=== PATIENT | male | born 1940 | race Caucasian/White ===

== ENCOUNTER 2016-05-26 07:18 | Emergency (ER) | payer OTHER ==
[~2016-05-26] VITALS: Ht 175.3 cm; Wt 83.0 kg
[~2016-05-26 07:18] MED LIST: ALBUTEROL0.09 MG/A1 INH; ALBUTEROL2.5 MG/3 M INH/SOL; ALLOPURINOL100 M1 PO; AMIODARONE HCL200 M1 PO; ANUSOL HC-HEMOR1 SUP RC; AUGMENTIN 875-1 EACH PO; AUGMENTIN 875875 MG PO; AZITHROMYCIN250 M1 PO; B COMPLEX PO; BREO ELLIPTA 11 EACH INH; CARDIZEM 180 M180 MG PO; CEFTIN500 M1 PO; CENTRUM SILVER1 EAC3 PO; CENTRUM1 TA2 PO; CIPRO 500MG TA500 MG PO; CORDARONE 200M200 MG PO; DIGOX0.125 MG PO; DILAUDID2 MG PO; DILTIAZEM 12HR120 MG PO; DILTIAZEM HCL120 M2 PO; FLEXERIL 5MG TAB5 MG PO; FLOMAX0.4 M1 PO; FUROSEMIDE40 MG PO; HUMALOG PEN100 U/ML SC; HYDRALAZINE HCL25 MG PO; INDOMETHACIN50 MG PO; LABETALOL HCL200 M1 PO; LEVEMIR 10100 UNITS/ SC; LIDOCAINE VISC100 M2 PO; LISINOPRIL10 MG PO; LISINOPRIL40 MG PO; LOSARTAN POTASS50 M1 PO; MAGNESIUM OXID400 MG PO; MELOXICAM15 MG PO; METFORMIN HYD1000 MG PO; NORVASC 10MG10 MG PO; NOVOLOG FL100 UNIT/1 SC; NOVOLOG100 U/ML SC; PERCOCET 325 MG1 TA2 PO; PRAVASTATIN SOD80 MG PO; PREDNISONE 10MG10 M1 PO; PREDNISONE10 M2 PO; PREDNISONE5 M1 PO; SPIRIVA 18 MCG18 MCG INH; SYMBICORT 160/41 PUF INH; VENTOLIN HFA18 GM INH; XARELTO15 M1 PO; XARELTO20 M2 PO; XARELTO20 MG PO; [UNRECOGNIZED DRUG - OTHER] PO
--- NOTE | 2016-05-26 07:20 | ED NOSE COMPLAINT ---
History of Present Illness General Chief Complaint: Epistaxis/Nasal Foreign Body Stated Complaint: BIBA FOR NOSE BLEED Source: patient, EMS Exam Limitations: no limitations Vital Signs & Intake/Output Vital Signs & Intake/Output Vital Signs Date Time Temp Pulse Resp B/P Pulse O2 O2 Flow FiO2 Ox Delivery Rate 05/26 814 97.5 78 20 182/68 /08 0815 97.5 78 20 182/68 05/26 0815 97.5 78 20 182/68 05/26 0800 95 Nasal 2.0L Cannula 05/26 0755 180/64 05/26 0754 182/68 05/26 0735 97 Nasal 2.0L Cannula 05/26 0624 94 Nasal 2.0L Cannula 05/26 721 97.5 93 20 193/84 89 Room Air Allergies Coded Allergies: NO KNOWN ALLERGIES (07/12/15) Reconcile Medications Albuterol Sulfate 2.5 MG/3 ML (0.083 %) VIAL.NEB 1 Vial INH/ASHLEY TID PRN wheezing Albuterol Sulfate (Ventolin Hfa) 18 GM HFA.AER.AD 2 PUF INH Q6P PRN SHORTNESS OF BREATH Allopurinol 100 MG TABLET 300 TAB PO DAILY GOUT (Reported) Allopurinol 300 MG TABLET 1 TAB PO DAILY HTN (Reported) Amiodarone HCl 200 MG TABLET 1 TAB PO DAILY AFIB (Reported) Diltiazem Hydrochloride (Diltiazem HCl) 120 MG C24 1 CAP PO DAILY HEART ( Reported) FLUTICASONE/VILANTEROL (Breo Ellipta 100-25 Mcg INH) 1 POW POW 1 PUFF INH DAILY BRTH (Reported) FOLIC ACID/VIT BCOMP,C (Y-Aavxpjq-Trn C Time Rel Tab) [address] 1 TAB PO DAILY SUPPLEMENT (Reported) Furosemide 40 MG TABLET 1 TAB PO DAILY HEART FAILURE (Reported) HYDRALAZINE HCL (Hydralazine HCl) 25 MG TAB 25 MG PO TID blood pressure Labetalol HCl 200 MG TABLET 1 TAB PO BID BP (Reported) Losartan Potassium 50 MG TABLET 1 TAB PO DAILY HYPERTENSION Magnesium Oxide 400 MG TABLET 1 TAB PO DAILY VITAMIN (Reported) Magnesium Oxide 400 MG TABLET 1 TAB PO DAILY LOW MAG Metformin HCl 1,000 MG TABLET 1 TAB PO BID DM (Reported) Multivitamin, Minerals, and (Centrum Silver) 1 TAB TAB 1 TAB PO DAILY SUPPLEMENT (Reported) Prednisone 10 MG TABLET 1 TAB PO SI copd take 4tablets for 2days. take 3tablets for 3days. take 2tablets for 3days. take 1tablet for 3days. then stop. Rivaroxaban (Xarelto) 15 MG TABLET 1 TAB PO 1700 atrial fibrillation TAMSULOSIN HCL (Tamsulosin Hydrochloride) 0.4 MG CAP 1 CAP PO DAILY PROSTATE (Reported) Tiotropium [place] (Spiriva) 18 MCG CAP.W.DEV 1 CAP INH DAILY COPD (Reported) Tiotropium [place] (Spiriva) 18 MCG CAP.W.DEV 1 CAP INH DAILY COPD (Reported) Triage Nurses Notes Reviewed? yes Onset: Abrupt Duration: hour(s): (1.5) Timing: single episode today Injury Environment: home Severity: mild, moderate No Modifying Factors: none Associated Symptoms: DYSPNEA HPI: 75 year old with nose bleed since 5:50 AM. Patient was awake, sitting down and it started to bleed. H/o same in past which usually resolve on their own. Patient states he started to panic with a nosebleed didn't stop and then became short of breath. No headache, no new visual disturbance. Increased lasix dose per Dr. Ramirez because he was volume overloaded. Patient hypertensive, hypoxic. H/O COPD, feels short of breath. One and a half liters of home oxygen only at night. Currently on prednisone 10 mg in the morning 5 mg night. Received duoneb in ambulance. Currently bleeding appears to have stopped. Peeling patient feeling a little bit better. He is on xarelto. Past History Travel History Traveled to [place] past 21 day No Medical History Any Pertinent Medical History? see below for history Neurological: NONE EENT: HEARING LOSS Cardiovascular: AFIB, CHF, hypertension, hyperlipidemia, STENTS x 5 LCW PACER/ DEBRILLATOR Respiratory: COPD, pneumonia Gastrointestinal: NONE Hepatic: NONE Renal: acute tubular necrosis Musculoskeletal: gout, osteoarthritis Psychiatric: NONE Endocrine: diabetes Blood Disorders: NONE Cancer(s): NONE INSURANCE BROKER/Reproductive: NONE History of MRSA: Yes History of VRE: No History of CDIFF: No Surgical History Surgical History: AICD/PACER, BYPASS Psychosocial History Who do you live with Family Services at Home None What is your primary language Bengali Family History Family History, If Any: FATHER BROTHER (CAD,HTN). Relation not specified for: Fam hx-ischem heart disease Fam hx-ischem heart disease Hx Contributory? No Review of Systems Review of Systems Constitutional: Denies: chills, fever. EENTM: Reports: epistaxis. Respiratory: Reports: short of breath. Denies: cough, sputum production. Cardiovascular: Denies: chest pain. GI: Denies: abdominal pain, bloody stool, vomiting. Genitourinary: Denies: discharge, dysuria. Musculoskeletal: Reports: no symptoms. Skin: Reports: no symptoms. Neurological/Psychological: Reports: no symptoms. Hematologic/Endocrine: Reports: bleeding. Immunologic/Allergic: Denies: splenectomy. All Other Systems: Reviewed and Negative Physical Exam Physical Exam General Appearance: well developed/nourished, mild distress Head: atraumatic Eyes: Bilateral: PERRL, EOMI. Nose: dried blood Mouth/Throat: normal mouth inspection, pharynx normal Neck: normal inspection, supple Cardiovascular/Respiratory: normal breath sounds, regular rate/rhythm Back: normal inspection Neurologic/Psych: no motor/sensory deficits, awake, alert, oriented x 3, normal mood/affect, ANXIOUS Skin: intact, normal color, warm/dry Progress Differential Diagnoses I considered the following diagnoses in my evaluation of the patient: [epistaxis , coagulopathy, anemia, chf, copd EXACERBATION] Plan of Care: Orders Procedure Date/time Status RT ED ORDERS 05/26 07 Complete PARTIAL THROMBOPLASTIN TIME 05/26 730 Complete PROTHROMBIN TIME 05/26 730 Complete TROPONIN LEVEL 05/27 727 Complete COMPREHENSIVE METABOLIC PANEL 05/27 727 Complete CBC WITHOUT DIFFERENTIAL 05/27 727 Complete Laboratory Tests 05/26/16 0730: Anion Gap 10, Estimated GFR 46 L, BUN/Creatinine Ratio 20.0, Glucose 144 H, Calcium 8.9, Total Bilirubin 0.4, AST 17, ALT 33, Alkaline Phosphatase 78, Troponin I 0.01, Total Protein 6.7, Albumin 3.6, Globulin 3.1, Albumin/Globulin Ratio 1.2, PT 15.3 H, INR 1.46 H, APTT 42 H, CBC w Diff NO MAN DIFF REQ, RBC 3.99 L, MCV 88.2, MCH 28.2, RDW 15.3 H, MPV 7.1 L, Gran % 77.5 H, Lymphocytes % 15.1 L, Monocytes % 5.6, Eosinophils % 1.2, Basophils % 0.6, Absolute Granulocytes 6.8 H, Absolute Lymphocytes 1.3, Absolute Monocytes 0.5, Absolute Eosinophils 0.1, Absolute Basophils 0.1, PUBS MCHC 31.9 L NO ACTIVE BLEEDING ON ARRIVAL TO ED. PATIENT SOB. DUONEB, CXR ORDERED. HOME BP MEDS ORDERED. CXR C/W MILD CHF. PATIENT FEELING MUCH BETTER AFTER DUONEB. PO LASIX ORDERED. (AMINA LONGORIA,REBECCA) Diagnostic Imaging: Viewed by Me: Radiology Read. Discussed w/RAD: Radiology Read. Initial ED EKG: none Rhythm Strip: normal sinus rhythm Comments: PATIENT: SONDRA CANO PRESENT AGE: 75 PATIENT ACCOUNT NO: [id number] : 39 LOCATION: [facility] ORDERING PHYSICIAN: REBECCA HUYNH MD SERVICE DATE: 05/26/16 EXAM TYPE: RAD - XRY-CHEST XRAY, PA AND LATERAL EXAMINATION: XR CHEST, 2 VIEWS CLINICAL INFORMATION: Hypoxia. Dyspnea. Rule out CHF COMPARISON: 04/18/2016 TECHNIQUE: AP and lateral views of the chest were obtained. FINDINGS: Triple lead AICD is unchanged from prior with leads terminating in the right ventricle, coronary sinus, and right atrium. Cardiomediastinal contour is within limits in size. Calcific atherosclerosis is present in the thoracic aorta. Pulmonary vasculature is unremarkable. There is mild dependent atelectasis. Heena B lines are present within the lateral aspects of the lung bases, consistent with mild interstitial edema. Trace pleural effusions are present at the posterior costophrenic sulci. No superimposed consolidation. There is confluent anterior osteophytosis in the thoracic spine with ossification of the anterior longitudinal ligament, consistent with diffuse hepatic skeletal hyperostosis. IMPRESSION: Mild pulmonary interstitial edema with trace bilateral pleural effusions. DICTATED BY: MIK MCINTOSH MD DATE/TIME DICTATED:05/26/16907 AUTO RESEARCH ENGINEER:SANTANA DATE/TIME TRANSCRIBED:05/26/16907 CONFIDENTIAL, DO NOT COPY WITHOUT APPROPRIATE AUTHORIZATION. <Electronically signed in Other Vendor System> SIGNED BY: MIK MCINTOSH MD 05/26/16914 Departure Departure Time of Disposition: 927 Disposition: HOME OR SELF CARE Condition: Stable Clinical Impression Primary Impression: Epistaxis, recurrent Secondary Impressions: CKD (chronic kidney disease), COPD (chronic obstructive pulmonary disease) Referrals: SCRALETT WATT MD (PCP/Family) Additional Instructions: CONTINUE YOUR REGULAR MEDICATIONS. TAKE AN EXTRA DOSE OF LASIX TODAY. RETURN FOR ANY WORSENING SHORTNESS OF BREATH. Departure Forms: Customer Survey General Discharge Information
[2016-05-26 07:48] LABS: ABSOLUTE BASOPHIL COUNT 0.1 /CUMM (0.0-0.2); ABSOLUTE EOSINOPHIL COUNT 0.1 /CUMM (0.0-0.7); ABSOLUTE GRANULOCYTE CT 6.8 /CUMM (1.4-6.5); ABSOLUTE LYMPH COUNT 1.3 /CUMM (1.2-3.4); ABSOLUTE MONOCYTE COUNT 0.5 /CUMM (0.10-0.60); BASOPHIL % 0.6 % (0.0-2.0); EOSINOPHIL % 1.2 % (0-5); GRANULOCYTE % 77.5 % (42.2-75.2); HEMATOCRIT 35.2 % (42-52); MEAN CORPUSCULAR HGB 28.2 PG (27.0-31.0); MEAN CORPUSCULAR HGB CONC 31.9 G/DL (33.0-37.0); MEAN CORPUSCULAR VOLUME 88.2 FL (80.0-94.0); MEAN PLATELET VOLUME 7.1 FL (7.4-10.4); PLATELET COUNT 271 /CUMM (130-400); RBC DISTRIBUTION WIDTH 15.3 % (11.5-14.5); RED BLOOD CELL CT 3.99 /CUMM (4.70-6.10); WHITE BLOOD CELL COUNT 8.8 /CUMM (4.8-10.8)
[2016-05-26 07:51] LABS: PT 15.3 SEC (9.4-12.5); PTT 42 SEC (25-37)
[2016-05-26] MEDS ORDERED: MAGNESIUM OXID400 M1 PO (08:29)
[2016-05-26] MEDS ORDERED: METFORMIN HCL1000 M1 PO (08:30)
[2016-05-26] MEDS ORDERED: SPIRIVA18 MCG INH (08:31)
[2016-05-26] MEDS ORDERED: ALLOPURINOL300 M1 PO (08:31)
--- NOTE | 2016-05-26 09:15 | RADIOLOGY REPORT ---
EXAMINATION: XR CHEST, 2 VIEWS CLINICAL INFORMATION: Hypoxia. Dyspnea. Rule out CHF COMPARISON: 04/18/2016 TECHNIQUE: AP and lateral views of the chest were obtained. FINDINGS: Triple lead AICD is unchanged from prior with leads terminating in the right ventricle, coronary sinus, and right atrium. Cardiomediastinal contour is within limits in size. Calcific atherosclerosis is present in the thoracic aorta. Pulmonary vasculature is unremarkable. There is mild dependent atelectasis. Heena B lines are present within the lateral aspects of the lung bases, consistent with mild interstitial edema. Trace pleural effusions are present at the posterior costophrenic sulci. No superimposed consolidation. There is confluent anterior osteophytosis in the thoracic spine with ossification of the anterior longitudinal ligament, consistent with diffuse hepatic skeletal hyperostosis. IMPRESSION: Mild pulmonary interstitial edema with trace bilateral pleural effusions.
[2016-05-26 10:03] VITALS: BP 178/78
== END 2016-05-26 10:10 ==
LOC: ERH 07:18
PROVIDERS: Emergency Medicine
DX: R04.0 Epistaxis (principal); N18.9 Chronic kidney disease, unspecified; J44.9 Chronic obstructive pulmonary disease, unspecified
CPT/HCPCS: 1263; J7512

== ENCOUNTER 2016-07-15 09:16 | Inpatient (IN) | payer OTHER ==
[~2016-07-15] VITALS: Ht 175.3 cm; Wt 86.4 kg
[~2016-07-15 09:16] MED LIST changes: +ALLOPURINOL300 M1 PO; +MAGNESIUM OXID400 M1 PO; +METFORMIN HCL1000 M1 PO; +SPIRIVA18 MCG INH
--- NOTE | 2016-07-15 09:22 | NUR ---
PT BIBA FOR INCREASED SOB STATES HE IS NORMALY ON 02 1L NC PRN FOR INCREASED SOB. PT TOOK TWO NEB TREATMENTS THIS AM AND DID NOT FEEL BETTER CALLED 911. PT REPORTS INCREASED SOB OVER THE PAST COUPLE OF DAYS WITH COUGH. PT STATES HE HAS BEEN EXPECTORATING THICK YELLOW/GREEN SPUTUM ALSO DEMONSTRATED SUCH IN THE ED. PT STATES HIS NORMAL 02 SAT IS AROUND 90 TO 91%. PT HAD EPISODE OF DIAPHORESIS WHILE COUGHING AND STATES HIS BREATHING JUST GOT HARDER TODAY. PT DENIES EVERY FEELING DIZZY.
--- NOTE | 2016-07-15 09:41 | ED DYSPNEA/ASTHMA COMPLAINT ---
History of Present Illness General Chief Complaint: Dyspnea (COPD, CHF, Other) Stated Complaint: BIBA SOB Source: patient, old records, EMS Exam Limitations: no limitations Vital Signs & Intake/Output Vital Signs & Intake/Output Vital Signs Date Time Temp Pulse Resp B/P B/P Pulse O2 O2 Flow FiO2 Mean Ox Delivery Rate 07/15 1141 98.0 71 20 188/82 96 Nasal 3.5L Cannula 07/15 1002 96 Nasal 2.0L Cannula 07/15 0923 90 Nasal 2.0L Cannula 07/15 0919 97.0 89 20 175/74 91 Nasal 2.0L Cannula Allergies Coded Allergies: NO KNOWN ALLERGIES (07/12/15) Reconcile Medications Albuterol Sulfate 2.5 MG/3 ML (0.083 %) VIAL.NEB 1 Vial INH/ASHLEY TID PRN wheezing Albuterol Sulfate (Ventolin Hfa) 18 GM HFA.AER.AD 2 PUF INH Q6P PRN SHORTNESS OF BREATH Allopurinol 100 MG TABLET 300 TAB PO DAILY GOUT (Reported) Allopurinol 300 MG TABLET 1 TAB PO DAILY HTN (Reported) Amiodarone HCl 200 MG TABLET 1 TAB PO DAILY AFIB (Reported) Diltiazem Hydrochloride (Diltiazem HCl) 120 MG C24 1 CAP PO DAILY HEART ( Reported) FLUTICASONE/VILANTEROL (Breo Ellipta 100-25 Mcg INH) 1 POW POW 1 PUFF INH DAILY BRTH (Reported) FOLIC ACID/VIT BCOMP,C (J-Eqcsfdj-Jze C Time Rel Tab) [address] 1 TAB PO DAILY SUPPLEMENT (Reported) Furosemide 40 MG TABLET 1 TAB PO DAILY HEART FAILURE (Reported) HYDRALAZINE HCL (Hydralazine HCl) 25 MG TAB 25 MG PO TID blood pressure Labetalol HCl 200 MG TABLET 1 TAB PO BID BP (Reported) Losartan Potassium 50 MG TABLET 1 TAB PO DAILY HYPERTENSION Magnesium Oxide 400 MG TABLET 1 TAB PO DAILY VITAMIN (Reported) Magnesium Oxide 400 MG TABLET 1 TAB PO DAILY LOW MAG Metformin HCl 1,000 MG TABLET 1 TAB PO BID DM (Reported) Multivitamin, Minerals, and (Centrum Silver) 1 TAB TAB 1 TAB PO DAILY SUPPLEMENT (Reported) Prednisone 10 MG TABLET 1 TAB PO SI copd take 4tablets for 2days. take 3tablets for 3days. take 2tablets for 3days. take 1tablet for 3days. then stop. Rivaroxaban (Xarelto) 15 MG TABLET 1 TAB PO 1700 atrial fibrillation TAMSULOSIN HCL (Tamsulosin Hydrochloride) 0.4 MG CAP 1 CAP PO DAILY PROSTATE (Reported) Tiotropium [place] (Spiriva) 18 MCG CAP.W.DEV 1 CAP INH DAILY COPD (Reported) Tiotropium [place] (Spiriva) 18 MCG CAP.W.DEV 1 CAP INH DAILY COPD (Reported) Triage Note: PT BIBA FOR INCREASED SOB STATES HE IS NORMALY ON 02 1L NC PRN FOR INCREASED SOB. PT TOOK TWO NEB TREATMENTS THIS AM AND DID NOT FEEL BETTER CALLED 911. PT REPORTS INCREASED SOB OVER THE PAST COUPLE OF DAYS WITH COUGH. PT STATES HE HAS BEEN EXPECTORATING THICK YELLOW/GREEN SPUTUM ALSO DEMONSTRATED SUCH IN THE ED. PT STATES HIS NORMAL 02 SAT IS AROUND 90 TO 91%. PT HAD EPISODE OF DIAPHORESIS WHILE COUGHING AND STATES HIS BREATHING JUST GOT HARDER TODAY. PT DENIES EVERY FEELING DIZZY. Triage Nurses Notes Reviewed? yes HPI: Patient presents for evaluation of worsening and severe shortness of breath since this morning. Onset was rather abrupt and has been constant since onset. Shortness of breath worsens with exertion. Patient states he has had prior episodes, most recently that resolved spontaneously. He does have a history of congestive heart failure and COPD. He denies any associated fever or cold symptoms but has had a cough over the past 3-4 days with yellow phlegm production and mild wheezing. He denies any leg swelling currently although he has had leg swelling in the past. He is not sure about orthopnea as he tends to sleep upright on a consistent basis. Past History Travel History Traveled to [place] past 21 day No Medical History Any Pertinent Medical History? 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 Relation not specified for: Fam hx-ischem heart disease Fam hx-ischem heart disease Hx Contributory? No Review of Systems Review of Systems Constitutional: Reports: no symptoms. EENTM: Reports: no symptoms. Respiratory: Reports: see HPI. Cardiovascular: Reports: no symptoms. GI: Reports: no symptoms. Genitourinary: Reports: no symptoms. Musculoskeletal: Reports: no symptoms. Skin: Reports: no symptoms. Neurological/Psychological: Reports: no symptoms. Hematologic/Endocrine: Reports: no symptoms. Immunologic/Allergic: Reports: no symptoms. All Other Systems: Reviewed and Negative Physical Exam Physical Exam Respiratory: see below Comments: Gen.: Well-nourished, well-developed, mild to moderate respiratory distress Head: Normocephalic, atraumatic. Eyes: Normal inspection bilaterally Ears: Normal inspection bilaterally Nose: Normal inspection Throat/mouth : Moist mucosa Neck: Supple, full range of motion, no goiter Heart: Regular rate and rhythm, no murmurs rubs or gallops Lungs: Decreased breath sounds bilaterally with scattered wheezes and mild rhonchi, no Rales Chest: Nontender Back: Normal range of motion Abdomen: Soft, nontender, nondistended, normal bowel sounds Extremities: Normal range of motion grossly, equal radial pulses, no cyanosis clubbing or edema, calves nt Neurologic: Cranial nerves grossly intact, speech is clear Skin: warm and dry Psychiatric: Calm, cooperative, no apparent delusions or hallucinations Core Measures ACS in differential dx? No Severe Sepsis Present: No Septic Shock Present: No Progress Differential Diagnosis: AMI, bronchitis, CHF, COPD, pneumonia, unstable angina Plan of Care: Orders Procedure Date/time Status CBC WITHOUT DIFFERENTIAL 07/16 06 Active BASIC ELECTROLYTES PLUS BUN&CR 07/16 06 Active Heart Healthy Diet 07/15 L Complete Consistent Carbohydrate 1 07/15 D Active LOWER RESPIRATORY CULTURE 07/15 1329 Active C.DIFFICILE 07/15 1329 Active BLOOD CULTURE 07/15 1329 Active Pathway - chart 07/15 1325 Active House Staff 07/15 1325 Active Patient Data 07/15 1325 Active Patient Data 07/15 1203 Active Misc Message 07/15 1131 Active ED Holding Orders 07/15 1131 Active Vital Signs 07/15 1131 Active Code Status 07/15 1131 Active Admit to inpatient 07/15 1101 Active Telemetry/Family Lawyer 07/15 0940 Active MAGNESIUM 07/15 0934 Complete B-TYPE NATRIURETIC PEP (BNP) 07/15 0934 Complete Intake & Output 07/15 0923 Active TROPONIN LEVEL 07/15 09 Complete COMPREHENSIVE METABOLIC PANEL 07/15 09 Complete CBC WITHOUT DIFFERENTIAL 07/15 09 Complete EKG 07/15 0917 Active VTE Mechanical Prophylaxis 07/15 UNK Active Telemetry/Family Lawyer 07/15 UNK Active Current Medications Sig/Clare Start time Last Medication Dose Stop Time Status Admin Azithromycin 500 MG DAILY 07/16 1000 AC (Zithromax) Sodium Chloride 250 ML (Normal Saline 0.9%) Ceftriaxone Sodium 1,000 MG DAILY 07/16 1000 AC (Rocephin) Methylprednisolone 40 MG Q12 07/16 1000 AC (Solumedrol) Furosemide 40 MG BID 07/15 2200 AC (Lasix) Heparin Sodium 5,000 UNIT Q8 07/15 2200 AC (Porcine) Acetaminophen 650 MG Q6P PRN 07/15 1330 AC (Tylenol) Ibuprofen 600 MG Q6P PRN 07/15 1330 AC (Motrin) Laboratory Tests 07/15/16 0940: Magnesium Cancelled, Ksn-X-Jggbawavpie Pept Cancelled 07/15/16 0934: Anion Gap 12, Estimated GFR 49 L, BUN/Creatinine Ratio 18.6, Glucose 110 H, Calcium 8.6, Magnesium 1.8, Total Bilirubin 0.4, AST 17, ALT 28, Alkaline Phosphatase 78, Troponin I 0.01, Kuv-I-Khsqovkrtmv Pept 5330 H, Total Protein 6.1 L, Albumin 3.4 L, Globulin 2.7, Albumin/Globulin Ratio 1.3, CBC w Diff NO MAN DIFF REQ, RBC 3.53 L, MCV 83.1, MCH 27.0, RDW 17.0 H, MPV 6.9 L, Gran % 80.3 H, Lymphocytes % 12.7 L, Monocytes % 5.4, Eosinophils % 1.5, Basophils % 0.1, Absolute Granulocytes 7.6 H, Absolute Lymphocytes 1.2, Absolute Monocytes 0.5, Absolute Eosinophils 0.1, Absolute Basophils 0, PUBS MCHC 32.5 L Microbiology 07/15 1329 LOWER RESP: Respiratory Culture - ORD 07/15 1329 LOWER RESP: Gram Stain - ORD 07/15 132 STOOL: Clostridium difficile Toxin A & B - ORD 07/15 1329 BLOOD: Blood Culture - ORD 07/15 1329 BLOOD: Blood Culture - ORD Diagnostic Imaging: Viewed by Me: Radiology Read. Discussed w/RAD: Radiology Read. CXR Impression: PATIENT: SONDRA CANO PRESENT AGE: 76 PATIENT ACCOUNT NO: [id number] : 39 LOCATION: [facility] ORDERING PHYSICIAN: EDDIE DUMONT MD SERVICE DATE: 07/15/16 EXAM TYPE: RAD - XRY-PORTABLE CHEST XRAY EXAMINATION: XR PORTABLE CHEST CLINICAL INFORMATION: Dyspnea and wheezing. COMPARISON: Chest 05/26/2016 TECHNIQUE: Portable frontal view of the chest was obtained. FINDINGS: There is mild cardiomegaly with increased pulmonary vascularity suggestive of congestion. There are dual pacer electrodes in right atrium and right ventricle. The lungs are expanded without acute consolidation. No gross bony abnormality seen. IMPRESSION: Cardiomegaly with pulmonary vascular congestion. DICTATED BY: CASSANDRA MOORE MD DATE/TIME DICTATED: 07/15/161001 FOLDER GLUER OPERATOR:SANTANA DATE/TIME TRANSCRIBED:07/15/161001 CONFIDENTIAL, DO NOT COPY WITHOUT APPROPRIATE AUTHORIZATION. <Electronically signed in Other Vendor System> SIGNED BY: CASSANDRA MOORE MD 07/15/16 1008 Initial ED EKG: atrial pacer with LBBB Prior EKG: unchanged Rhythm Strip: paced rhythm Comments: 07/15/2016 1:30:34 PM patient updated on test results. He appears comfortable but his lungs still sound somewhat congested. Departure Departure Disposition: STILL A PATIENT Condition: Stable Clinical Impression Primary Impression: CHF (congestive heart failure) Qualifiers: Congestive heart failure type: unspecified congestive heart failure type Congestive heart failure chronicity: acute Qualified Code: I50.9 - Heart failure, unspecified Secondary Impressions: Anemia Qualifiers: Anemia type: unspecified type Qualified Code: D64.9 - Anemia, unspecified COPD (chronic obstructive pulmonary disease) Renal insufficiency Referrals: SCARLETT WATT MD (PCP/Family) Departure Forms: Customer Survey General Discharge Information Admission Note Spoke With: ARY LONGORIA,ELAINE Tomas Documentation of Exam: Documentation of any treatments & extenuating circumstances including Concerns Regarding Discharge (functional status, medication knowledge or non-compliance, living conditions, etc.) that warrant an admission rather than observation: Patient is experiencing a combination of COPD and CHF exacerbations complicated by renal insufficiency and anemia. The combination of the above has severely compromised this patient's functional capacity making him a poor candidate for outpatient management. I feel the exertion of compliance with outpatient treatment would likely worsen his dyspnea potentially leading to hypoxia respiratory insufficiency and respiratory arrest. In addition this could unmask underlying coronary artery disease in this patient with multiple risk factors. I feel he now requires hospitalization for continuous cardiac monitoring and continuous pulse oximetry along with nebulized bronchodilators, steroids, Lasix and monitoring of intake and output and daily weights. Serial troponins and EKGs should also be obtained. Pulmonary and cardiology consultations should be considered. Given this patient's advanced age and multiple medical comorbidities I feel his response to treatment and recovery will be prolonged and complicated, requiring a multiple day hospitalization. Critical Care Note Critical Care Note Critical Care Time: 30-74 min
[2016-07-15 09:43] LABS: ABSOLUTE BASOPHIL COUNT 0 /CUMM (0.0-0.2); ABSOLUTE EOSINOPHIL COUNT 0.1 /CUMM (0.0-0.7); ABSOLUTE GRANULOCYTE CT 7.6 /CUMM (1.4-6.5); ABSOLUTE LYMPH COUNT 1.2 /CUMM (1.2-3.4); ABSOLUTE MONOCYTE COUNT 0.5 /CUMM (0.10-0.60); BASOPHIL % 0.1 % (0.0-2.0); EOSINOPHIL % 1.5 % (0-5); GRANULOCYTE % 80.3 % (42.2-75.2); HEMATOCRIT 29.4 % (42-52); MEAN CORPUSCULAR HGB CONC 32.5 G/DL (33.0-37.0); MEAN CORPUSCULAR VOLUME 83.1 FL (80.0-94.0); MEAN PLATELET VOLUME 6.9 FL (7.4-10.4); PLATELET COUNT 283 /CUMM (130-400); RED BLOOD CELL CT 3.53 /CUMM (4.70-6.10); WHITE BLOOD CELL COUNT 9.5 /CUMM (4.8-10.8)
--- NOTE | 2016-07-15 10:08 | RADIOLOGY REPORT ---
EXAMINATION: XR PORTABLE CHEST CLINICAL INFORMATION: Dyspnea and wheezing. COMPARISON: Chest 05/26/2016 TECHNIQUE: Portable frontal view of the chest was obtained. FINDINGS: There is mild cardiomegaly with increased pulmonary vascularity suggestive of congestion. There are dual pacer electrodes in right atrium and right ventricle. The lungs are expanded without acute consolidation. No gross bony abnormality seen. IMPRESSION: Cardiomegaly with pulmonary vascular congestion.
--- NOTE | 2016-07-15 10:30 | NUR ---
PT RESTING COMFORTABLY OFFERS NO COMPLAINTS
--- NOTE | 2016-07-15 11:15 | NUR ---
PT MEDICATED WITH LASIX
--- NOTE | 2016-07-15 12:00 | NUR ---
IV VANCO INFUSING DIRECTED PER DR. DUMONT NO BLOOD CULTURES NEEDED
--- NOTE | 2016-07-15 12:23 | NUR ---
PT ASSIGNED TO [place] [id number]
--- NOTE | 2016-07-15 12:50 | History & Physical ---
JUAN FRANCISCO YI 07/15/16 1249: General Information and HPI MD Statement: I have seen and personally examined SONDRA CANO and documented this H&P. The patient is a 76 year old M who presented with a patient stated chief complaint of worsening shortness of breath. Source of Information: patient, family, old records Exam Limitations: no limitations History of Present Illness: Patient is a 76-year-old gentleman with a past medical history significant for MRSA 2013, atrial fibrillation on Xarelto, history of hypertension and hyperlipidemia, CHF, coronary artery disease(status post 5 stents with PACER/ DEBRILLATOR, COPD on 1 L of oxygen at baseline, ex-smoker, smoked more than 40 years, history of solitary lung nodule diagnosed in 2013, history of arthritis history of diabetes mellitus presented to the ED for the evaluation of sudden onset shortness of breath this morning. Patient reported that his symptoms started all of a sudden with severe shortness of breath ,not associated with any chest discomfort or palpitations. He used his nebulizer treatment at home twice ,with minimal improvement of his symptoms, 911 was called in and he was brought to the ED for further evaluation. Patient reported that he had similar episode of shortness of breath on that resolved after taking short-acting inhalers and nebulizers at home.He also reported that productive cough for the last 3-4 days denied any fever or chills denied any sick contacts or any recent travel history. Patient also reported that he has been having loose watery stools for the last couple of days not associated with any nausea vomiting abdominal discomfort or any alternating constipation. In the ED patient was found to be in acute respiratory distress(wheezing) .Chest x-ray was inconsistent with pulmonary vascular congestion .He received one-time dose of IV Solu-Medrol 125 mg, nebulizer treatment with IV Lasix 40 mg that resulted in improvement of his symptoms. Allergies/Medications Allergies: Coded Allergies: NO KNOWN ALLERGIES (07/12/15) Home Med list Albuterol Sulfate 2.5 MG/3 ML (0.083 %) VIAL.NEB 1 Vial INH/ASHLEY TID PRN wheezing Albuterol Sulfate (Ventolin Hfa) 18 GM HFA.AER.AD 2 PUF INH Q6P PRN SHORTNESS OF BREATH Allopurinol 100 MG TABLET 3 TAB PO DAILY GOUT (Reported) Allopurinol 300 MG TABLET 1 TAB PO DAILY HTN (Reported) Amiodarone HCl 200 MG TABLET 0.5 TAB PO DAILY AFIB (Reported) Amlodipine Besylate (Norvasc) 5 MG TABLET 1 TAB PO DAILY HTN (Reported) Diltiazem Hydrochloride (Diltiazem HCl) 120 MG C24 1 CAP PO DAILY HEART ( Reported) FLUTICASONE/VILANTEROL (Breo Ellipta 100-25 Mcg INH) 1 POW POW 1 PUFF INH DAILY BRTH (Reported) FOLIC ACID/VIT BCOMP,C (P-Uponqao-Erm C Time Rel Tab) [address] 1 TAB PO DAILY SUPPLEMENT (Reported) Furosemide 40 MG TABLET 1 TAB PO DAILY HEART FAILURE (Reported) Labetalol HCl 200 MG TABLET 1 TAB PO BID BP (Reported) Losartan Potassium 50 MG TABLET 1 TAB PO DAILY HYPERTENSION Magnesium Oxide 400 MG TABLET 1 TAB PO DAILY VITAMIN (Reported) Magnesium Oxide 400 MG TABLET 1 TAB PO DAILY LOW MAG Metformin HCl 1,000 MG TABLET 1 TAB PO BID DM (Reported) Multivitamin, Minerals, and (Centrum Silver) 1 TAB TAB 1 TAB PO DAILY SUPPLEMENT (Reported) Pravastatin Sodium 80 MG TABLET 1 TAB PO DAILY HLD (Reported) Prednisone 10 MG TABLET 1 TAB PO SI copd take 4tablets for 2days. take 3tablets for 3days. take 2tablets for 3days. take 1tablet for 3days. then stop. Rivaroxaban (Xarelto) 15 MG TABLET 1 TAB PO 1700 atrial fibrillation TAMSULOSIN HCL (Tamsulosin Hydrochloride) 0.4 MG CAP 1 CAP PO DAILY PROSTATE (Reported) Tiotropium Worden (Spiriva) 18 MCG CAP.W.DEV 1 CAP INH DAILY COPD (Reported) Tiotropium Worden (Spiriva) 18 MCG CAP.W.DEV 1 CAP INH DAILY COPD (Reported) Past History Travel History Traveled to [place] past 21 day No Medical History Neurological: NONE EENT: HEARING LOSS Cardiovascular: AFIB, CHF, hypertension, hyperlipidemia, STENTS x 5 LCW PACER/ DEBRILLATOR Respiratory: COPD, pneumonia Gastrointestinal: NONE Hepatic: NONE Renal: acute tubular necrosis Musculoskeletal: gout, osteoarthritis Psychiatric: NONE Endocrine: diabetes Blood Disorders: NONE Cancer(s): NONE 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 Relation not specified for: Fam hx-ischem heart disease Fam hx-ischem heart disease Psychosocial History Who Do You Live With? self Services at Home: None Primary Language: Serbian ETOH Use: occasional use Illicit Drug Use: denies illicit drug use Functional Ability ADLs Independent: dressing, eating, toileting, bathing. Ambulation: independent IADLs Independent: shopping, housework, finances, food prep, telephone, transportation , medication admin. Review of Systems Review of Systems Constitutional: Denies: chills, diaphoresis, fever, malaise. EENTM: Denies: blurred vision, double vision, visual changes. Cardiovascular: Reports: orthopena. Denies: chest pain, edema, palpitations. Respiratory: Reports: cough, short of breath. Denies: hemoptysis. GI: Denies: bloating, constipation, diarrhea. Genitourinary: Denies: discharge, dysuria, frequency. Musculoskeletal: Denies: back pain, gout, joint pain. Skin: Denies: change in skin color, change in hair/nails, dryness. Neurological/Psychological: Denies: ataxia. Exam & Diagnostic Data Last 24 Hrs of Vital Signs/I&O Vital Signs Date Time Temp Pulse Resp B/P B/P Pulse O2 O2 Flow FiO2 Mean Ox Delivery Rate 07/15 1357 98.0 72 16 176/72 94 Nasal 3.0L Cannula 07/15 1352 96 Nasal 2.0L Cannula 07/15 1352 97 Nasal 1.0L Cannula 07/15 1141 98.0 71 20 188/82 96 Nasal 3.5L Cannula 07/15 1002 96 Nasal 2.0L Cannula 07/15 0923 90 Nasal 2.0L Cannula 07/15 0919 97.0 89 20 175/74 91 Nasal 2.0L Cannula Intake & Output 07/15 1600 07/15 0800 07/15 0000 Intake Total 0 Output Total 525 Balance -525 Intake, Oral 0 Output, Urine 525 Patient 188 lb Weight Weight Reported by Patient Measurement Method Physical Exam General Appearance Alert, Oriented X3 Skin No Rashes, No Breakdown HEENT Atraumatic, PERRLA Neck Supple, No JVD Cardiovascular Regular Rate, Normal S1, Normal S2 Lungs b/l wheeze on exam Abdomen Normal Bowel Sounds, Soft, No Tenderness Extremities No Clubbing, No Cyanosis, No Edema Last 24 Hrs of Labs/[place]: Laboratory Tests 07/15/16 0940: Magnesium Cancelled, Ikl-A-Fflwzvoqhtm Pept Cancelled 07/15/16 0934: Anion Gap 12, Estimated GFR 49 L, BUN/Creatinine Ratio 18.6, Glucose 110 H, Calcium 8.6, Magnesium 1.8, Total Bilirubin 0.4, AST 17, ALT 28, Alkaline Phosphatase 78, Troponin I 0.01, Gkp-A-Fqspshhioes Pept 5330 H, Total Protein 6.1 L, Albumin 3.4 L, Globulin 2.7, Albumin/Globulin Ratio 1.3, CBC w Diff NO MAN DIFF REQ, RBC 3.53 L, MCV 83.1, MCH 27.0, RDW 17.0 H, MPV 6.9 L, Gran % 80.3 H, Lymphocytes % 12.7 L, Monocytes % 5.4, Eosinophils % 1.5, Basophils % 0.1, Absolute Granulocytes 7.6 H, Absolute Lymphocytes 1.2, Absolute Monocytes 0.5, Absolute Eosinophils 0.1, Absolute Basophils 0, PUBS MCHC 32.5 L Microbiology 07/15 1329 LOWER RESP: Respiratory Culture - COLB 07/15 132 LOWER RESP: Gram Stain - COLB 07/15 1328 STOOL: Clostridium difficile Toxin A & B - COLB 07/15 132 BLOOD: Blood Culture - COLB 07/15 1328 BLOOD: Blood Culture - COLB Assessment/Plan Assessment: Patient is a 76-year-old gentleman with a past medical history significant for MRSA 2014(colonization), without evidence of pyogenic infection, atrial fibrillation on Xarelto, history of hypertension and hyperlipidemia, CHF, coronary artery disease(status post 5 stents with biventricular ICD, COPD on 1 L of oxygen at baseline, ex-smoker, smoked more than 40 years, history of solitary lung nodules diagnosed in 2013, history of arthritis history of diabetes mellitus presented to the ED for the evaluation of sudden onset shortness of breath this morning. In the ED patient was found to be in acute respiratory distress(wheezing).Chest x-ray was inconsistent with pulmonary vascular congestion .He received one-time dose of IV Solu-Medrol 125 mg, nebulizer treatment with IV Lasix 40 mg that resulted in improvement of his symptoms. He was saturating more than 92% on 2 L Pertinent labs on admission: Normal WBC count H&H low 9.6/29.4, elevated BUN and creatinine: 26/1.4, elevated proBNP: 5330 EKG: Atrial sense pendular paced rhythm QTC 530 Chest x-ray:Cardiomegaly with pulmonary vascular congestion. Assessment: 1. Acute hypoxic respiratory failure due to COPD exacerbation with acute on chronic diastolic CHF exacerbation: * Patient has been admitted to telemetry floor for further monitoring * Continue oxygen and keep saturation above 92% * Patient already received one-time dose of IV Solu-Medrol 125 mg the ED continue with IV Solu-Medrol 40 mg twice a day from tomorrow. * Received IV Lasix 40 mg in the ED continue IV Lasix 40 mg twice a day. * Continue to monitor strict in's and O's with daily weight checks. * Echocardiogram done in March 2015 showed Mild concentric left ventricular hypertrophy ,EF of 55-60 % with evidence of moderate to severe primary hypertension and pulmonary regurgitation. * If needed we'll repeat the echocardiogram 2. Productive cough(possible acute bronchitis)-history of COPD with bronchiolitis: * Patient has a history of right middle lobe bronchiectasis and collapse from recurrent pneumonia. * Patient received 1 dose of IV vancomycin in the ED in view of history of MRSA. * As patient is currently afebrile with no evidence of pneumonia on the chest x- ray will hold off any IV antibiotics for now continue. * Patient cannot get by mouth azithromycin due to prolonged QTC 530 3. Loose watery stools: * Rule out C. difficile. 4. History of coronary artery disease(status post 5 stents with biventricular ICD: * Continue home medications including labetalol, pravastatin 80 mg. 5. History of resistant hypertension: * Continue home medications including amlodipine, losartan, and labetalol 6. History of atrial fibrillation * Continue home dose of Xarelto. 7. 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 * Avoid nephrotoxic agent * 8. History of BPH * continue Flomax 9. History of chronic normocytic anemia * Continue to monitor H&H Mild to moderate pain controlled with Tylenol DVT prophylaxis with Xarelto Patient is full code As Ranked By This Provider Problem List: 1. COPD with exacerbation 2. CHF (congestive heart failure) Core Measures/Miscellaneous Acute Coronary Syndrome ACS Diagnosis: No Cerebrovascular Accident CVA/TIA Diagnosis: No Congestive Heart Failure CHF Diagnosis: No Venous Thromboembolism VTE Risk Factors: Acute medical illness, Age > 40 No [facility] prophylaxis d/t: VTE low risk, No contraindications No VTE Pharm Prophylaxis d/t: No contraindications VTE Diagnosis: No VTE Type: NONE VTE Confirmed by (Test): NONE Severe Sepsis Severe Sepsis Present: No Septic Shock Septic Shock Present: No Miscellaneous Documentation Attending Case Discussed With: Dr Delatorre Primary Care Physician: SCARLETT DELATORRE MD Patient sees these Specialists dr Shell Level of Patient Care: Telemetry Resident Review Statement Resident Statement: examined this patient, discussed with internet manager ARY LONGORIA,[facility] 07/15/16 1456: Attending MD Review Statement Attending Statement Attending MD Statement: examined this patient, discuss w/resident/PA/ANIMAL CARE SPECIALIST, agreed w/resident/PA/ANIMAL CARE SPECIALIST, discussed with family, reviewed EMR data (avail), discussed with nursing, discussed with case mgmt, reviewed images, amended to note Attending Assessment/Plan: Gen.: Well-nourished, well-developed, mild to moderate respiratory distress Head: Normocephalic, atraumatic. Eyes: Normal inspection bilaterally Ears: Normal inspection bilaterally Nose: Normal inspection Throat/mouth : Moist mucosa Neck: Supple, full range of motion, no goiter Heart: Regular rate and rhythm, no murmurs rubs or gallops Lungs: Decreased breath sounds bilaterally with scattered wheezes and mild rhonchi, no Rales Chest: Nontender Back: Normal range of motion Abdomen: Soft, nontender, nondistended, normal bowel sounds Extremities: Normal range of motion grossly, equal radial pulses, no cyanosis clubbing or edema, calves nt Neurologic: Cranial nerves grossly intact, speech is clear Skin: warm and dry Psychiatric: Calm, cooperative, no apparent delusions or hallucinations SIGNIFICANT DATA Chest x-ray reviewed shows mild congestive heart failure Previous echocardiogram showed moderate to severe pulmonary hypertension with normal ejection fraction with caib-dr-jnuiswdj MR Previous CT scan does reveal that he has COPD with mucous plugging with volume loss with bronchiolitis type picture with minute pulmonary nodules with the atrophic left kidney and secular aneurysm of the descending aorta. Other blood work reviewed he has chronically elevated creatinine with TKD stage II his white count was not elevated did not have a significant left shift is chronically anemic with hemoglobin of 9.6 with a normal MCV. Previously he has not had any eosinophilia Previous blood gas has not revealed any significant hypercarbia in 2016 however he did have significant hypercarbia a few years before that signifying chronic hypercarbic respiratory insufficiency IMPRESSION This is a 76-year-old gentleman with significant COPD, coronary artery disease with previous cardiac cath, biventricular ICD, hypertension, atrial fibrillation on Xeralto, chronic diastolic heart failure with normal ejection fraction, moderate to severe pulmonary hypertension, mitral regurgitation which appears to be mild to moderate, diabetes, hearing loss, gout and osteoarthritis, significant COPD with no recent intubation who is on 1 L of oxygen, with a 40- pack-year smoking history, has quit in 2013, now here with acute shortness of breath. His issues include * Acute COPD exacerbation with wheezing. Does not appear to have any purulent bacterial bronchitis. * Chronic diastolic heart failure now has evidence of acute diastolic heart failure with pulmonary edema x-ray and elevated proBNP * Previous history of MRSA colonization with no pyogenic sputum * Significant COPD with bronchiolitis as well * Cor pulmonale with chronic pulmonary hypertension probably related to his diastolic heart disease and as well as significant COPD * Right middle lobe bronchiectasis and collapse from recurrent pneumonia with no clinical evidence suggestive of worsening bronchiectasis * Small lung nodules * Chronic kidney disease with atrophic kidney * Mild aortic aneurysm. RECOMMENDATION * Continue steroids reduce the dose to 40 every 12 tomorrow and then to 40 daily * Intravenous Lasix twice a day * Continue Xeralto * Discontinue ibuprofen * Sputum culture * Urinary Legionella and pneumococcal antigen * Stool for C. difficile * Cont amiodarone * Continue his antihypertensive medications * Continue Flomax * Albuterol and ipratropium acjxf-tqj-cvbym every 4 hours for now We will follow closely
--- NOTE | 2016-07-15 12:58 | NUR ---
REPORT GIVEN TO KOJO HARGROVE
[2016-07-15 13:57] VITALS: BP 176/72
--- NOTE | 2016-07-15 14:56 | Admission Certification ---
Admission Certification Certification Statement - As attending physician, I certify that at the time of - admission, based on clinical presentation, severity of - symptoms, need for further diagnostic testing and - therapeutic interventions, and risk of adverse outcomes - without in-hospital treatment, in my clinical assessment, - this patient requires an acute hospital stay for a minimum - of two nights or longer. I have also considered psychsocial - factors such as support system, advanced age, financial - issues, cognitive issues, and failed out-patient treatments, - past re-admission history, safety of patient, and lack of - compliance as applicable. Specific rationale supporting this admission is: chf and copde
[2016-07-15] MEDS ORDERED: NORVASC5 M1 PO (15:12)
[2016-07-15] MEDS ORDERED: PRAVASTATIN SOD80 M2 PO (15:14)
[2016-07-15 22:00] VITALS: BP 140/70
[2016-07-16 08:08] LABS: ABSOLUTE BASOPHIL COUNT 0 /CUMM (0.0-0.2); ABSOLUTE EOSINOPHIL COUNT 0 /CUMM (0.0-0.7); ABSOLUTE GRANULOCYTE CT 10.2 /CUMM (1.4-6.5); ABSOLUTE LYMPH COUNT 0.5 /CUMM (1.2-3.4); ABSOLUTE MONOCYTE COUNT 0.3 /CUMM (0.10-0.60); BASOPHIL % 0 % (0.0-2.0); EOSINOPHIL % 0 % (0-5); GRANULOCYTE % 92.8 % (42.2-75.2); HEMATOCRIT 29.3 % (42-52); MEAN CORPUSCULAR HGB 27.1 PG (27.0-31.0); MEAN CORPUSCULAR HGB CONC 32.6 G/DL (33.0-37.0); MEAN CORPUSCULAR VOLUME 82.9 FL (80.0-94.0); MEAN PLATELET VOLUME 7.7 FL (7.4-10.4); PLATELET COUNT 277 /CUMM (130-400); RBC DISTRIBUTION WIDTH 16.8 % (11.5-14.5); RED BLOOD CELL CT 3.53 /CUMM (4.70-6.10)
[2016-07-16 08:39] VITALS: BP 122/64
[2016-07-16 08:40] VITALS: BP 144/70
--- NOTE | 2016-07-16 08:48 | PN- Housestaff ---
Subjective Follow-up For: CHF EXACERBATION 2 bronchitis Complaints: no complaints Tele-Events Since Last Visit: Single pacing, heart rate ranges from 71-97, bundle-branch block Subjective: Patient was seen and examined this morning. He was lying comfortably in bed without any complaints. He admits that his breathing is better now. He is saturating 98% on 3 L nasal cannula. Oxygen was titrated to 2 L. He remained afebrile, WBC count 7 most likely due to steroids, H&H stable. Review of Systems Constitutional: Denies: chills, diaphoresis, fever. Cardiovascular: Denies: chest pain, edema. Respiratory: Reports: cough, short of breath. Denies: hemoptysis, orthopnea. Gastrointestinal: Denies: bloating, constipation, diarrhea. Genitourinary: Denies: dysuria, frequency. Objective Last 24 Hrs of Vital Signs/I&O Vital Signs Date Time Temp Pulse Resp B/P B/P Pulse O2 O2 Flow FiO2 Mean Ox Delivery Rate 07/16 0903 77 144/07/16 0903 77 14407/16 0902 77 144/07/16 0840 99.3 77 20 144/70 92 Room Air 07/16 0839 98.4 68 18 122/64 98 Nasal 3.0L Cannula 07/16 0800 Nasal 2.0L Cannula 07/16 0000 94 Nasal 2.0L Cannula 07/15 2200 98.1 69 20 140/70 94 Nasal 2.0L Cannula 07/15 1634 170/74 07/15 1632 170/74 07/15 1614 93 Nasal 2.0L Cannula 07/15 1357 98.0 72 16 176/72 94 Nasal 3.0L Cannula 07/15 1352 96 Nasal 2.0L Cannula 07/15 1352 97 Nasal 1.0L Cannula 07/15 1141 98.0 71 20 188/82 96 Nasal 3.5L Cannula 07/15 1002 96 Nasal 2.0L Cannula Intake & Output 07/16 1600 07/16 0800 07/16 0000 Intake Total 300 300 Output Total 400 3150 Balance -100 -2850 Intake, Oral 300 300 Output, Urine 400 3150 Patient 185 lb Weight Weight Standing Scale Measurement Method Physical Exam General Appearance: Alert, Oriented X3, Cooperative, No Acute Distress Cardiovascular: Normal S1, Normal S2 Lungs: bilateral wheezing with reduced air entry Abdomen: Soft, No Tenderness Extremities: No Edema Current Medications: Current Medications Sig/Clare Start time Last Medication Dose Route Stop Time Status Admin Acetaminophen 650 MG Q6P PRN 07/15 1330 AC PO Albuterol Sulfate 3 ML ONCE ONE 07/15 1000 DC 07/15 INH 07/15 1001 1002 Allopurinol 300 MG DAILY 07/15 1511 AC 07/16 PO 0903 Amiodarone HCl 100 MG DAILY 07/16 1000 AC 07/16 PO 0902 Amiodarone HCl 100 MG DAILY 07/15 1511 DC PO Amlodipine Besylate 5 MG DAILY 07/15 1512 AC 07/16 PO 0903 Azithromycin 500 MG DAILY 07/16 1000 CAN Sodium Chloride 250 ML IV Azithromycin 250 MG DAILY 07/16 1000 CAN PO Ceftriaxone Sodium 1,000 MG DAILY 07/16 1000 CAN IV Diltiazem HCl 120 MG DAILY 07/15 1512 AC 07/16 PO 0903 Furosemide 40 MG BID 07/15 2200 AC 07/16 IV 0903 Furosemide 40 MG ONCE ONE 07/15 1115 DC 07/15 IV PUSH 07/15 1116 1112 Furosemide 0 .STK-MED ONE 07/15 1109 DC IV Heparin Sodium 5,000 UNIT Q8 07/15 2200 CAN (Porcine) SC Ibuprofen 600 MG Q6P PRN 07/15 1330 DC PO Insulin Aspart 0 TIDAC 07/15 1700 AC 07/16 SC 0802 Magnesium Oxide 400 MG DAILY 07/15 1514 AC 07/16 PO 0902 Methylprednisolone 40 MG Q12 07/16 1000 AC 07/16 IV 0903 Methylprednisolone 0 .STK-MED ONE 07/15 1024 DC .ROUTE Methylprednisolone 125 MG ONCE ONE 07/15 1000 DC 07/15 IV 07/15 1001 1021 Potassium Chloride 40 MEQ ONCE ONE 07/15 2345 DC 07/15 PO 07/15 2346 2358 Pravastatin Sodium 80 MG 1700 07/15 1700 AC 07/15 PO 1633 Rivaroxaban 15 MG 1700 07/15 1700 AC 07/15 PO 1632 Tamsulosin HCl 0.4 MG DAILY 07/15 1513 AC 07/16 PO 0903 Vancomycin HCl 0 .STK-MED ONE 07/15 1109 DC .ROUTE Vancomycin HCl 1,000 MG ONCE ONE 07/15 1100 DC 07/15 Sodium Chloride 250 ML IV 07/15 1159 1200 Last 24 Hrs of Lab/[place] Results Last 24 Hrs of Labs/[place]: Laboratory Tests 07/16/16 0615: Anion Gap 12, Estimated GFR 37 L, BUN/Creatinine Ratio 20.6, CBC w Diff MAN DIFF ORDERED, RBC 3.53 L, MCV 82.9, MCH 27.1, RDW 16.8 H, MPV 7.7, Gran % 92.8 H, Lymphocytes % 4.5 L, Monocytes % 2.7, Eosinophils % 0, Basophils % 0 L, Absolute Granulocytes 10.2 H, Absolute Lymphocytes 0.5 L, Absolute Monocytes 0.3, Absolute Eosinophils 0, Absolute Basophils 0, Platelet Estimate VERIFIED BY SMEAR, Polychromasia 1+, Poikilocytosis 1+, Basophilic Stippling SLIGHT, Anisocytosis 1+, Ovalocytes 1+, PUBS MCHC 32.6 L 07/15/16 0940: Magnesium Cancelled, Xbi-E-Jzqwdjipuud Pept Cancelled Microbiology 07/15 132 LOWER RESP: Respiratory Culture - COLB 07/15 132 LOWER RESP: Gram Stain - COLB 07/15 132 STOOL: Clostridium difficile Toxin A & B - COLB 07/15 1328 BLOOD: Blood Culture - CAN Cancelled: Cancelled via OE: Error 07/15 1328 BLOOD: Blood Culture - CAN Cancelled: Cancelled via OE: Error Assessment/Plan Assessment: 1. Acute hypoxic respiratory failure due to COPD exacerbation with acute on chronic diastolic CHF exacerbation: * Patient has been admitted to telemetry floor for further monitoring * Continue oxygen and keep saturation above 92% * We will continue Solu-Medrol 40 mg every 12 hours * Received IV Lasix 40 mg in the ED continue IV Lasix 40 mg twice a day. * Continue to monitor strict in's and O's with daily weight checks. * Echocardiogram done in March 2015 showed Mild concentric left ventricular hypertrophy ,EF of 55-60 % with evidence of moderate to severe primary hypertension and pulmonary regurgitation. * If needed we'll repeat the echocardiogram 2. Productive cough(possible acute bronchitis)-history of COPD with bronchiolitis: * Patient has a history of right middle lobe bronchiectasis and collapse from recurrent pneumonia. * Patient received 1 dose of IV vancomycin in the ED in view of history of MRSA. * As patient is currently afebrile with no evidence of pneumonia on the chest x- ray will hold off any IV antibiotics for now continue. * Patient cannot get by mouth azithromycin due to prolonged QTC 530 3. Loose watery stools: * Rule out C. difficile. 4. History of coronary artery disease(status post 5 stents with biventricular ICD: * Continue home medications including labetalol, pravastatin 80 mg. 5. History of resistant hypertension: * Continue home medications including amlodipine, losartan, and labetalol 6. History of atrial fibrillation * Continue home dose of Xarelto. 7. History of chronic kidney disease stage II with evidence of atrophic kidney * BUN/creatinine likely elevated from yesterday to 1.8 but closer to his baseline. We will consider reducing Lasix to 40 mg daily today * Avoid nephrotoxic agent * 8. History of BPH * continue Flomax 9. History of chronic normocytic anemia * Continue to monitor H&H Problem List: 1. CKD (chronic kidney disease) 2. Paroxysmal atrial fibrillation 3. COPD with exacerbation Pain Ratin Pain Location: Not applicable Pain Goal: Remain pain free Pain Plan: Tylenol Tomorrow's Labs & Rationales: CBC with basic electrolyte panel
--- NOTE | 2016-07-16 11:23 | PN- Pulmonary ---
Subjective HPI/Critical Care Issues: Patient was seen and examined this morning. He was lying comfortably in bed without any complaints. He admits that his breathing is better now. He is saturating 98% on 3 L nasal cannula. Oxygen was titrated to 2 L. He remained afebrile, WBC count 7 most likely due to steroids, H&H stable. Review of Systems Constitutional: Denies: chills, diaphoresis, fever. Cardiovascular: Denies: chest pain, edema. Respiratory: Reports: cough, short of breath. Denies: hemoptysis, orthopnea. Gastrointestinal: Denies: bloating, constipation, diarrhea. Genitourinary: Denies: dysuria, frequency. Objective Current Medications: Current Medications Sig/Clare Start time Last Medication Dose Route Stop Time Status Admin Acetaminophen 650 MG Q6P PRN 07/15 1330 AC PO Allopurinol 300 MG DAILY 07/15 1511 AC 07/16 PO 0903 Amiodarone HCl 100 MG DAILY 07/16 1000 AC 07/16 PO 0902 Amiodarone HCl 100 MG DAILY 07/15 1511 DC PO Amlodipine Besylate 5 MG DAILY 07/15 1512 AC 07/16 PO 0903 Azithromycin 500 MG DAILY 07/16 1000 CAN Sodium Chloride 250 ML IV Azithromycin 250 MG DAILY 07/16 1000 CAN PO Ceftriaxone Sodium 1,000 MG DAILY 07/16 1000 CAN IV Diltiazem HCl 120 MG DAILY 07/15 1512 AC 07/16 PO 0903 Furosemide 40 MG BID 07/15 2200 AC 07/16 IV 0903 Heparin Sodium 5,000 UNIT Q8 07/15 2200 CAN (Porcine) SC Ibuprofen 600 MG Q6P PRN 07/15 1330 DC PO Insulin Aspart 0 TIDAC 07/15 1700 AC 07/16 SC 0802 Magnesium Oxide 400 MG DAILY 07/15 1514 AC 07/16 PO 0902 Methylprednisolone 40 MG Q12 07/16 1000 AC 07/16 IV 0903 Potassium Chloride 40 MEQ ONCE ONE 07/15 2345 DC 07/15 PO 07/15 2346 2358 Pravastatin Sodium 80 MG 1700 07/15 1700 AC 07/15 PO 1633 Rivaroxaban 15 MG 1700 07/15 1700 AC 07/15 PO 1632 Tamsulosin HCl 0.4 MG DAILY 07/15 1513 AC 07/16 PO 0903 Vancomycin HCl 1,000 MG ONCE ONE 07/15 1100 DC 07/15 Sodium Chloride 250 ML IV 07/15 1159 1200 Vital Signs & I&O Last 24 Hrs of Vitals and I&O: Vital Signs Date Time Temp Pulse Resp B/P B/P Pulse O2 O2 Flow FiO2 Mean Ox Delivery Rate 07/16 0903 77 144/70 07/16 0903 77 144/70 07/16 0902 77 144/70 07/16 0840 99.3 77 20 144/70 92 Room Air 07/16 0839 98.4 68 18 122/64 98 Nasal 3.0L Cannula 07/16 0800 Nasal 2.0L Cannula 07/16 0000 94 Nasal 2.0L Cannula 07/15 2200 98.1 69 20 140/70 94 Nasal 2.0L Cannula 07/15 1634 170/74 07/15 1632 170/74 07/15 1614 93 Nasal 2.0L Cannula 07/15 1357 98.0 72 16 176/72 94 Nasal 3.0L Cannula 07/15 1352 96 Nasal 2.0L Cannula 07/15 1352 97 Nasal 1.0L Cannula 07/15 1141 98.0 71 20 188/82 96 Nasal 3.5L Cannula Intake & Output 07/16 1600 07/16 0800 07/16 0000 Intake Total 300 300 Output Total 400 3150 Balance -100 -2850 Intake, Oral 300 300 Output, Urine 400 3150 Patient 185 lb Weight Weight Standing Scale Measurement Method Impression/Plan Impression/Plan Impression/Plan: Gen.: Well-nourished, well-developed, mild to moderate respiratory distress Head: Normocephalic, atraumatic. Eyes: Normal inspection bilaterally Ears: Normal inspection bilaterally Nose: Normal inspection Throat/mouth : Moist mucosa Neck: Supple, full range of motion, no goiter Heart: Regular rate and rhythm, no murmurs rubs or gallops Lungs: Decreased breath sounds bilaterally with scattered wheezes and mild rhonchi, no Rales Chest: Nontender Back: Normal range of motion Abdomen: Soft, nontender, nondistended, normal bowel sounds Extremities: Normal range of motion grossly, equal radial pulses, no cyanosis clubbing or edema, calves nt Neurologic: Cranial nerves grossly intact, speech is clear Skin: warm and dry Psychiatric: Calm, cooperative, no apparent delusions or hallucinations SIGNIFICANT DATA Chest x-ray reviewed shows mild congestive heart failure Previous echocardiogram showed moderate to severe pulmonary hypertension with normal ejection fraction with xpuk-to-ypogddcm MR Previous CT scan does reveal that he has COPD with mucous plugging with volume loss with bronchiolitis type picture with minute pulmonary nodules with the atrophic left kidney and secular aneurysm of the descending aorta. IMPRESSION This is a 76-year-old gentleman with significant COPD, coronary artery disease with previous cardiac cath, biventricular ICD, hypertension, atrial fibrillation on Xeralto, chronic diastolic heart failure with normal ejection fraction, moderate to severe pulmonary hypertension, mitral regurgitation which appears to be mild to moderate, diabetes, hearing loss, gout and osteoarthritis, significant COPD with no recent intubation who is on 1 L of oxygen, with a 40- pack-year smoking history, has quit in 2014, now here with acute shortness of breath. His issues include * Acute COPD exacerbation with wheezing. Does not appear to have any purulent bacterial bronchitis. * Chronic diastolic heart failure now has evidence of acute diastolic heart failure with pulmonary edema on x-ray and elevated proBNP * Previous history of MRSA colonization with no pyogenic sputum * Significant COPD with bronchiolitis as well * Cor pulmonale with chronic pulmonary hypertension probably related to his diastolic heart disease and as well as significant COPD * Right middle lobe bronchiectasis and collapse from recurrent pneumonia with no clinical evidence suggestive of worsening bronchiectasis * Small lung nodules * Chronic kidney disease with atrophic kidney * Mild aortic aneurysm. RECOMMENDATION * Continue steroids reduce the dose to 40 every 12 and 40 in two days * Intravenous Lasix one dose only today and change to po in am * Continue Xeralto * Sputum culture * Urinary Legionella and pneumococcal antigen * Stool for C. difficile if he has further diarrhea * Cont amiodarone * Continue his antihypertensive medications * Continue Flomax * Albuterol and ipratropium beshq-voe-[id number] every 4 hours for now * If his sputum increases will start on po doxy 100 bid for seven days We will follow closely
--- NOTE | 2016-07-16 14:08 | Cons- Cardiology ---
General Information and HPI Consulting Request Date of Consult: 07/16/16 Requested By: MORTEZA LONGORIA,ROBLES Reason for Consult: Worsening shortness of breath with congestive heart failure Source of Information: patient, old records Exam Limitations: no limitations History of Present Illness: The patient is a 76-year-old male who is followed by Saul Ramirez MD as his usual outpatient supervisor respiratory. I'm covering for him today. The patient is admitted with worsening shortness of breath. His past pedicle history is remarkable for atrial fibrillation, hypertension, hyperlipidemia, coronary artery disease, history of multiple prior stents, implantation of pacemaker/ defibrillator, COPD, and a history of being MRSA positive. The patient is now in the hospital today with complaints of acute onset of increasing shortness of breath earlier today. The patient reports that he was feeling reasonably well. Earlier today he developed acute onset of shortness of breath with no other symptoms of chest discomfort palpitations etc. He'll family called 911 and was brought to the emergency him for further evaluation. In the emergency room, he was noted to be in congestive heart failure. In the emergency room, the patient received Solu-Medrol and IV Lasix with subsequent improvement. At the moment, the patient is stable and feels much better. His respirator status is significantly improved post diuresis. He denies any other symptoms at the present time. Allergies/Medications Allergies: Coded Allergies: NO KNOWN ALLERGIES (07/12/15) Home Med List: Albuterol Sulfate 2.5 MG/3 ML (0.083 %) VIAL.NEB 1 Vial INH/ASHLEY TID PRN wheezing Albuterol Sulfate (Ventolin Hfa) 18 GM HFA.AER.AD 2 PUF INH Q6P PRN SHORTNESS OF BREATH Allopurinol 100 MG TABLET 3 TAB PO DAILY GOUT (Reported) Allopurinol 300 MG TABLET 1 TAB PO DAILY HTN (Reported) Amiodarone HCl 200 MG TABLET 0.5 TAB PO DAILY AFIB (Reported) Amlodipine Besylate (Norvasc) 5 MG TABLET 1 TAB PO DAILY HTN (Reported) Diltiazem Hydrochloride (Diltiazem HCl) 120 MG C24 1 CAP PO DAILY HEART ( Reported) FLUTICASONE/VILANTEROL (Breo Ellipta 100-25 Mcg INH) 1 POW POW 1 PUFF INH DAILY BRTH (Reported) FOLIC ACID/VIT BCOMP,C (I-Zdrpwsw-Rpu C Time Rel Tab) [address] 1 TAB PO DAILY SUPPLEMENT (Reported) Furosemide 40 MG TABLET 1 TAB PO DAILY HEART FAILURE (Reported) Labetalol HCl 200 MG TABLET 1 TAB PO BID BP (Reported) Losartan Potassium 50 MG TABLET 1 TAB PO DAILY HYPERTENSION Magnesium Oxide 400 MG TABLET 1 TAB PO DAILY VITAMIN (Reported) Magnesium Oxide 400 MG TABLET 1 TAB PO DAILY LOW MAG Metformin HCl 1,000 MG TABLET 1 TAB PO BID DM (Reported) Multivitamin, Minerals, and (Centrum Silver) 1 TAB TAB 1 TAB PO DAILY SUPPLEMENT (Reported) Pravastatin Sodium 80 MG TABLET 1 TAB PO DAILY HLD (Reported) Prednisone 10 MG TABLET 1 TAB PO SI copd take 4tablets for 2days. take 3tablets for 3days. take 2tablets for 3days. take 1tablet for 3days. then stop. Rivaroxaban (Xarelto) 15 MG TABLET 1 TAB PO 1700 atrial fibrillation TAMSULOSIN HCL (Tamsulosin Hydrochloride) 0.4 MG CAP 1 CAP PO DAILY PROSTATE (Reported) Tiotropium [place] (Spiriva) 18 MCG CAP.W.DEV 1 CAP INH DAILY COPD (Reported) Tiotropium [place] (Spiriva) 18 MCG CAP.W.DEV 1 CAP INH DAILY COPD (Reported) Current Medications: Current Medications Sig/Clare Start time Last Medication Dose Route Stop Time Status Admin Acetaminophen 650 MG Q6P PRN 07/15 1330 AC PO Allopurinol 300 MG DAILY 07/15 1511 AC 07/16 PO 0903 Amiodarone HCl 100 MG DAILY 07/16 1000 AC 07/16 PO 0902 Amiodarone HCl 100 MG DAILY 07/15 1511 DC PO Amlodipine Besylate 5 MG DAILY 07/15 1512 AC 07/16 PO 0903 Azithromycin 500 MG DAILY 07/16 1000 CAN Sodium Chloride 250 ML IV Azithromycin 250 MG DAILY 07/16 1000 CAN PO Ceftriaxone Sodium 1,000 MG DAILY 07/16 1000 CAN IV Diltiazem HCl 120 MG DAILY 07/15 1512 AC 07/16 PO 0903 Furosemide 40 MG DAILY 07/17 1000 AC PO Furosemide 40 MG BID 07/15 2200 DC 07/16 IV 0903 Heparin Sodium 5,000 UNIT Q8 07/15 2200 CAN (Porcine) SC Ibuprofen 600 MG Q6P PRN 07/15 1330 DC PO Insulin Aspart 0 TIDAC 07/15 1700 AC 07/16 SC 1237 Magnesium Oxide 400 MG DAILY 07/15 1514 AC 07/16 PO 0902 Methylprednisolone 40 MG Q12 07/16 1000 AC 07/16 IV 0903 Potassium Chloride 40 MEQ ONCE ONE 07/15 2345 DC 07/15 PO 07/15 2346 2358 Pravastatin Sodium 80 MG 07/15 1700 AC 07/15 PO 1633 Rivaroxaban 15 MG 1700 07/15 1700 AC 07/15 PO 1632 Tamsulosin HCl 0.4 MG DAILY 07/15 1513 AC 07/16 PO 0903 Past History Travel History Traveled to [place] past 21 day No Medical History Blood Transfusion Hx: Yes Neurological: NONE EENT: HEARING LOSS Cardiovascular: AFIB, CHF, hypertension, hyperlipidemia, STENTS x 5 LCW PACER/ DEBRILLATOR Respiratory: COPD, pneumonia Gastrointestinal: NONE Hepatic: NONE Musculoskeletal: gout, osteoarthritis Psychiatric: NONE Endocrine: diabetes Blood Disorders: NONE Cancer(s): NONE 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 Relation not specified for: Fam hx-ischem heart disease Fam hx-ischem heart disease Psychosocial History Who Do You Live With? self Services at Home: None Primary Language: [place] Smoking Status: Former Smoker ETOH Use: occasional use Illicit Drug Use: denies illicit drug use Functional Ability ADLs Independent: dressing, eating, toileting, bathing. Ambulation: independent IADLs Independent: shopping, housework, finances, food prep, telephone, transportation , medication admin. ECHO Results (as available) Date of last Echo 03/29/15 EF% 60 Report: CONCLUSIONS Mild concentric left ventricular hypertrophy. Left ventricular ejection fraction is estimated at 55-60 %. There is mild inferolateral hypokinesis. Other perez all contract well. Catheter/pacemaker wire in the right ventricular cavity. Catheter/pacemaker wire in the right atrial appendage. Mild to moderate left atrial dilatation. Mild to moderate thickening/calcification of the mitral valve leaflets. Ahxq-xq-rbonmmnk mitral regurgitation. Focal thickening of the aortic valve cusps. No aortic stenosis. Trace aortic regurgitation. Right ventricular systolic pressure estimated to be elevated at 40- 45 mmHg. The IVC is moderately dilated. Results are similar to the last echocardiogram of 12/02/2014, except that mild inferolateral hypokinesis of the left ventricle is noted on the current study. Exam & Diagnostic Data Vital Signs and I&O Vital Signs Date Time Temp Pulse Resp B/P B/P Pulse O2 O2 Flow FiO2 Mean Ox Delivery Rate 07/16 0903 77 144/70 07/16 0903 77 144/70 07/16 0902 77 144/70 07/16 0840 99.3 77 20 144/70 92 Room Air 07/16 0839 98.4 68 18 122/64 98 Nasal 3.0L Cannula 07/16 0800 Nasal 2.0L Cannula 07/16 0000 94 Nasal 2.0L Cannula 07/15 2200 98.1 69 20 140/70 94 Nasal 2.0L Cannula 07/15 1634 170/74 07/15 1632 170/74 07/15 1614 93 Nasal 2.0L Cannula Intake & Output 07/16 1600 07/16 0800 07/16 0000 07/15 1600 07/15 0800 07/15 0000 Intake Total 300 300 0 Output Total 400 3150 525 Balance -100 -2850 -525 Intake, Oral 300 300 0 Output, Urine 400 3150 525 Patient 185 lb 188 lb Weight Weight Standing Scale Reported by Patient Measurement Method Physical Exam: General Appearance Alert, Oriented X3, vital signs stable Skin normal HEENT Atraumatic, PERRLA, Neck Supple, JVP normal, carotid upstroke 2+ bilaterally with no bruits Cardiovascular Regular Rate, Normal S1, Normal S2, 1/6 systolic murmur left sternal border Lungs bilateral rhonchi with crackles at the bases Abdomen Normal Bowel Sounds, Soft, No Tenderness Extremities No Clubbing, No Cyanosis, No Edema Labs/[place] Results: Laboratory Tests 07/16 07/15 0615 0940 Chemistry Sodium (137 - 145 mmol/L) 137 Potassium (3.5 - 5.1 mmol/L) 4.4 Chloride (98 - 107 mmol/L) 100 Carbon Dioxide (22 - 30 mmol/L) 25 Anion Gap (5 - 16) 12 BUN (9 - 20 mg/dL) 37 H Creatinine (0.7 - 1.2 mg/dL) 1.8 H Estimated GFR (>60 ml/min) 37 L BUN/Creatinine Ratio (7 - 25 %) 20.6 Magnesium Cancelled Fpa-R-Omyqhtxqzzq Pept Cancelled Hematology CBC w Diff MAN DIFF ORDERED WBC (4.8 - 10.8 /CUMM) 11.0 H RBC (4.70 - 6.10 /CUMM) 3.53 L Hgb (14.0 - 18.0 G/DL) 9.6 L Hct (42 - 52 %) 29.3 L MCV (80.0 - 94.0 FL) 82.9 MCH (27.0 - 31.0 PG) 27.1 RDW (11.5 - 14.5 %) 16.8 H Plt Count (130 - 400 /CUMM) 277 MPV (7.4 - 10.4 FL) 7.7 Gran % (42.2 - 75.2 %) 92.8 H Lymphocytes % (20.5 - 51.1 %) 4.5 L Monocytes % (1.7 - 9.3 %) 2.7 Eosinophils % (0 - 5 %) 0 Basophils % (0.0 - 2.0 %) 0 L Absolute Granulocytes (1.4 - 6.5 /CUMM) 10.2 H Absolute Lymphocytes (1.2 - 3.4 /CUMM) 0.5 L Absolute Monocytes (0.10 - 0.60 /CUMM) 0.3 Absolute Eosinophils (0.0 - 0.7 /CUMM) 0 Absolute Basophils (0.0 - 0.2 /CUMM) 0 Platelet Estimate (ADEQUATE) VERIFIED BY SMEAR Polychromasia 1+ Poikilocytosis 1+ Basophilic Stippling SLIGHT Anisocytosis 1+ Ovalocytes 1+ PUBS MCHC (33.0 - 37.0 G/DL) 32.6 L 07/15 0934 Chemistry Sodium (137 - 145 mmol/L) 141 Potassium (3.5 - 5.1 mmol/L) 3.9 Chloride (98 - 107 mmol/L) 104 Carbon Dioxide (22 - 30 mmol/L) 25 Anion Gap (5 - 16) 12 BUN (9 - 20 mg/dL) 26 H Creatinine (0.7 - 1.2 mg/dL) 1.4 H Estimated GFR (>60 ml/min) 49 L BUN/Creatinine Ratio (7 - 25 %) 18.6 Glucose (65 - 99 mg/dL) 110 H Calcium (8.4 - 10.2 mg/dL) 8.6 Magnesium (1.6 - 2.3 mg/dL) 1.8 Total Bilirubin (0.2 - 1.3 mg/dL) 0.4 AST (17 - 59 U/L) 17 ALT (21 - 72 U/L) 28 Alkaline Phosphatase (< 127 U/L) 78 Troponin I (<0.11 ng/ml) 0.01 Ten-U-Seueklyzlws Pept (<125 pg/mL) 5330 H Total Protein (6.3 - 8.2 g/dL) 6.1 L Albumin (3.5 - 5.0 g/dL) 3.4 L Globulin (1.9 - 4.2 gm/dL) 2.7 Albumin/Globulin Ratio (1.1 - 2.2 %) 1.3 Hematology CBC w Diff NO MAN DIFF REQ WBC (4.8 - 10.8 /CUMM) 9.5 RBC (4.70 - 6.10 /CUMM) 3.53 L Hgb (14.0 - 18.0 G/DL) 9.6 L Hct (42 - 52 %) 29.4 L MCV (80.0 - 94.0 FL) 83.1 MCH (27.0 - 31.0 PG) 27.0 RDW (11.5 - 14.5 %) 17.0 H Plt Count (130 - 400 /CUMM) 283 MPV (7.4 - 10.4 FL) 6.9 L Gran % (42.2 - 75.2 %) 80.3 H Lymphocytes % (20.5 - 51.1 %) 12.7 L Monocytes % (1.7 - 9.3 %) 5.4 Eosinophils % (0 - 5 %) 1.5 Basophils % (0.0 - 2.0 %) 0.1 Absolute Granulocytes (1.4 - 6.5 /CUMM) 7.6 H Absolute Lymphocytes (1.2 - 3.4 /CUMM) 1.2 Absolute Monocytes (0.10 - 0.60 /CUMM) 0.5 Absolute Eosinophils (0.0 - 0.7 /CUMM) 0.1 Absolute Basophils (0.0 - 0.2 /CUMM) 0 PUBS MCHC (33.0 - 37.0 G/DL) 32.5 L Diagnostic Data EKG Results Atrial fibrillation with intermittent paced rhythm CXR Results FINDINGS: There is mild cardiomegaly with increased pulmonary vascularity suggestive of congestion. There are dual pacer electrodes in right atrium and right ventricle. The lungs are expanded without acute consolidation. No gross bony abnormality seen. IMPRESSION: Cardiomegaly with pulmonary vascular congestion. Assessment/Plan Assessment/Plan Assessment: 1. Acute hypoxic respiratory failure likely related to exacerbation of acute on chronic HFpEF with a component of COPD exacerbation. 2. Atrial fibrillation 3. Underlying chronic obstructive pulmonary disease 4. History of coronary artery disease with prior multiple stents 5. Chronic renal insufficiency 6. History of mild pulmonary hypertension 7. Mild to moderate mitral insufficiency on previous echocardiogram 8. Indwelling peacemaker/AICD Recommendations: -Admit the patient 1 North telemetry -Continue regular medications -IV Lasix as outlined -Strict monitoring of intakes, outputs, and daily weights -Follow-up echocardiogram ordered -Consideration for entering the patient into the CHF clinic for outpatient monitoring -Continue pulmonary treatment as per Dr. Shell and the medical team Consult Acknowledgment - Thank you for your consult request.
[2016-07-16 15:54] VITALS: BP 136/60
[2016-07-16 22:31] VITALS: BP 144/70
--- NOTE | 2016-07-17 07:42 | PN- Housestaff ---
Subjective Follow-up For: Acute onset shortness breath most likely congestive heart failure exacerbation Tele-Events Since Last Visit: SR, HR 66-87 BBB at 12AM Subjective: Patient seen and examined. Resting comfortably in bed with no acute complaints. Reports much improvement in cough and breathing. Would like to go home today to take care of his . Currently satting well on 1-2 liters of oxygen via NC. Denies any chest pain, palpitations, lightheadedness, dizziness, abdominal pain, n/v/c/d. No acute events reported overnight. Review of Systems Constitutional: Reports: see HPI. Objective Last 24 Hrs of Vital Signs/I&O Vital Signs Date Time Temp Pulse Resp B/P B/P Pulse O2 O2 Flow FiO2 Mean Ox Delivery Rate 07/17 0818 98.0 66 20 148/64 95 Nasal 1.5L Cannula 07/17 0000 96 Nasal 1.5L Cannula 07/16 2231 97.5 76 20 144/70 94 Nasal Cannula 07/16 1554 98.6 68 20 136/60 95 Nasal 1.5L Cannula 07/16 0903 77 144/70 07/16 0903 77 144/70 07/16 0902 77 144/70 Intake & Output 07/17 1600 07/17 0800 07/17 0000 Intake Total 400 520 Output Total 675 1000 Balance -275 -480 Intake, Oral 400 520 Output, Urine 675 1000 Patient 84.822 kg Weight Weight Standing Scale Measurement Method Physical Exam General Appearance: Alert, Oriented X3, Cooperative, No Acute Distress Other Physical Findings: Cardiovascular: Normal S1, Normal S2 Lungs: bilateral wheezing with reduced air entry Abdomen: Soft, No Tenderness Extremities: No Edema Current Medications: Current Medications Sig/Clare Start time Last Medication Dose Route Stop Time Status Admin Acetaminophen 650 MG Q6P PRN 07/15 1330 AC PO Allopurinol 300 MG DAILY 07/15 1511 AC 07/16 PO 0903 Amiodarone HCl 100 MG DAILY 07/16 1000 AC 07/16 PO 0902 Amlodipine Besylate 5 MG DAILY 07/15 1512 AC 07/16 PO 0903 Diltiazem HCl 120 MG DAILY 07/15 1512 AC 07/16 PO 0903 Furosemide 40 MG DAILY 07/17 1000 AC PO Furosemide 40 MG BID 07/15 2200 DC 07/16 IV 0903 Insulin Aspart 0 TIDAC 07/15 1700 AC 07/17 SC 0758 Magnesium Oxide 400 MG DAILY 07/15 1514 AC 07/16 PO 0902 Methylprednisolone 40 MG Q12 07/16 1000 AC 07/16 IV 2151 Pravastatin Sodium 80 MG 07/15 1700 AC 07/16 PO 1751 Rivaroxaban 15 MG 17007/15 1700 AC 07/16 PO 1751 Tamsulosin HCl 0.4 MG DAILY 07/15 1513 AC 07/16 PO 0903 Last 24 Hrs of Lab/[place] Results Last 24 Hrs of Labs/Mics: Laboratory Tests 07/17/16 0615: Anion Gap 9, Estimated GFR 39 L, BUN/Creatinine Ratio 28.2 H, CBC w Diff NO MAN DIFF REQ, RBC 3.44 L, MCV 83.2, MCH 26.9 L, RDW 16.7 H, MPV 7.7, Gran % 96.6 H, Lymphocytes % 2.6 L, Monocytes % 0.8 L, Eosinophils % 0, Basophils % 0 L, Absolute Granulocytes 13.4 H, Absolute Lymphocytes 0.4 L, Absolute Monocytes 0.1 L, Absolute Eosinophils 0, Absolute Basophils 0, PUBS MCHC 32.3 L Microbiology 07/16 1746 LOWER RESP: Respiratory Culture - COLB 07/16 1746 LOWER RESP: Gram Stain - COLB 07/16 1200 URINE ROUT: Legionella Antigen - COMP 07/16 1200 URINE ROUT: Streptococcus pneumoniae Antigen (M - COMP Assessment/Plan Assessment: 76-year-old gentleman with a past medical history significant for 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 # Acute hypoxic resp failure Reportedly hypoxic requiring 3 liters of oxygen on admission. He uses 1 liter at home only during nights. Most likely 2/2 acute CHF/COPD exacerbation. Currently satting well on 1-2 liters of oxygen via NC. * Continue cardiac monitoring * Vitals per protocol * TRC neb tx as needed * Oxygen supplement to maintain saturation above 92% * Oxygen taper trail today * Management for CHF/COPD as below # Acute CHF exacerbation Echocardiogram done in March 2015 showed Mild concentric left ventricular hypertrophy ,EF of 55-60 % with evidence of moderate to severe primary hypertension and pulmonary regurgitation. * Continue Lasix 40mg BID IV, consider decreasing the dose today * Appreciate cardio recs * Maintain negative fluid balance. * Strict I/Os with daily weights * Cont Solu-Medrol 40 mg every 12 hours, taper to once a daily starting tmrw * Continue IV Lasix 40 mg twice a day. * Follow up repeat echo # COPD exacerabtion Patient has a history of right middle lobe bronchiectasis and collapse from recurrent pneumonia. Although he enorses a cough which started at home, it is improving significant and he has been afebrile with no signs of infection since the admission. Patient received 1 dose of IV vancomycin in the ED in view of history of MRSA. * Watch off antibiotics * Patient cannot get by mouth azithromycin due to prolonged QTC 530 * If productive cough persists/worsens and he develops any signs of infection, he may be started on doxycycline. # History of coronary artery disease(status post 5 stents with biventricular ICD : * Continue home medications including labetalol, pravastatin 80 mg. # History of resistant hypertension: * Continue home medications including amlodipine, losartan, and labetalol # History of chronic kidney disease stage II with evidence of atrophic kidney * Monitor BUN/creatinine daily * Avoid nephrotoxic agent # History of Afib Rate currently well controlled * Continuous cardiac monitoring * Cont Xarelto at home dose # History of BPH * Continue Flomax # History of chronic normocytic anemia * Continue to monitor H&H # Hx of diabetes * Novolog SSI with accuchecks * Diabetic diet - Diabetic diet - Mild to moderate pain controlled with Tylenol - DVT prophylaxis with Xarelto - Full code Problem List: 1. CHF (congestive heart failure) 2. Diabetes 3. Hypertension 4. ATRIAL FIBRILATION 5. Full code status 6. Anemia 7. Renal insufficiency 8. CKD (chronic kidney disease) Pain Ratin Pain Location: 0 Pain Goal: Remain pain free Pain Plan: Mild path Tomorrow's Labs & Rationales: BEP - renal fx
[2016-07-17 07:47] LABS: ABSOLUTE BASOPHIL COUNT 0 /CUMM (0.0-0.2); ABSOLUTE EOSINOPHIL COUNT 0 /CUMM (0.0-0.7); ABSOLUTE GRANULOCYTE CT 13.4 /CUMM (1.4-6.5); ABSOLUTE LYMPH COUNT 0.4 /CUMM (1.2-3.4); ABSOLUTE MONOCYTE COUNT 0.1 /CUMM (0.10-0.60); BASOPHIL % 0 % (0.0-2.0); EOSINOPHIL % 0 % (0-5); HEMATOCRIT 28.6 % (42-52); MEAN CORPUSCULAR HGB 26.9 PG (27.0-31.0); MEAN CORPUSCULAR HGB CONC 32.3 G/DL (33.0-37.0); MEAN CORPUSCULAR VOLUME 83.2 FL (80.0-94.0); MEAN PLATELET VOLUME 7.7 FL (7.4-10.4); RBC DISTRIBUTION WIDTH 16.7 % (11.5-14.5); RED BLOOD CELL CT 3.44 /CUMM (4.70-6.10); WHITE BLOOD CELL COUNT 13.8 /CUMM (4.8-10.8)
[2016-07-17 08:18] VITALS: BP 148/64
[2016-07-17 08:32] LABS: GRANULOCYTE % 96.6 % (42.2-75.2); PLATELET COUNT 275 /CUMM (130-400)
--- NOTE | 2016-07-17 10:32 | PN- Cardiology ---
Subjective Subjective: Mr. Caldwell has had recurrent atrial fibrillation, episodes of flash pulmonary edema, reduced ejection fraction in the past which has improved after biventricular defibrillator. He has severe COPD. I saw him in the office about 2 months ago which time I increased his Lasix to 60 mg daily because his defibrillator has shown increased thoracic fluid (Optivol). 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 However he still remains on Xarelto. The patient is doing better today. He has no chest pain and less shortness of breath. He has diuresed well. He had no chest pain. He has 1 negative troponin. He is back on oral Lasix 40 mg daily. Objective Vital Signs and I&Os Vital Signs Date Time Temp Pulse Resp B/P B/P Pulse O2 O2 Flow FiO2 Mean Ox Delivery Rate 07/17 0944 73 146/68 07/17 0943 73 146/78 07/17 0943 73 146/80 07/17 0818 98.0 66 20 148/64 95 Nasal 1.5L Cannula 07/17 0000 96 Nasal 1.5L Cannula 07/16 2231 97.5 76 20 144/70 94 Nasal Cannula 07/16 1554 98.6 68 20 136/60 95 Nasal 1.5L Cannula Intake & Output 07/17 1600 07/17 0800 07/17 0000 07/16 1600 07/16 0800 07/16 0000 Intake Total 400 520 720 300 300 Output Total 675 1000 858 532 4934 Balance -275 -480 -80 -100 -2850 Intake, IV 15 Intake, Oral 400 520 705 300 300 Output, Urine 675 1000 545 313 2019 Patient 187 lb 185 lb Weight Weight Standing Scale Standing Scale Measurement Method Physical Exam: He is in no distress HEENT exam is normal Chest reveals decreased breath sounds and mild expiratory wheezing, no rales, rhonchi. Heart reveals regular rhythm and no murmurs Extremities no edema Current Medications: Current Medications Sig/Clare Start time Last Medication Dose Route Stop Time Status Admin Acetaminophen 650 MG Q6P PRN 07/15 1330 AC PO Allopurinol 300 MG DAILY 07/15 1511 AC 07/17 PO 0943 Amiodarone HCl 100 MG DAILY 07/16 1000 AC 07/17 PO 0944 Amlodipine Besylate 5 MG DAILY 07/15 1512 AC 07/17 PO 0943 Diltiazem HCl 120 MG DAILY 07/15 1512 AC 07/17 PO 0944 Furosemide 40 MG DAILY 07/17 1000 AC 07/17 PO 0943 Furosemide 40 MG BID 07/15 2200 DC 07/16 IV 0903 Insulin Aspart 0 TIDAC 07/15 1700 AC 07/17 SC 0758 Magnesium Oxide 400 MG DAILY 07/15 1514 AC 07/17 PO 0943 Methylprednisolone 40 MG Q12 07/16 1000 AC 07/17 IV 0943 Pravastatin Sodium 80 MG 1700 07/15 1700 AC 07/16 PO 1751 Rivaroxaban 15 MG 17007/15 1700 AC 07/16 PO 1751 Tamsulosin HCl 0.4 MG DAILY 07/15 1513 AC 07/17 PO 0943 Results Last 48 Hrs of Labs/Mics: Laboratory Tests 07/17/1615: Anion Gap 9, Estimated GFR 39 L, BUN/Creatinine Ratio 28.2 H, CBC w Diff NO MAN DIFF REQ, RBC 3.44 L, MCV 83.2, MCH 26.9 L, RDW 16.7 H, MPV 7.7, Gran % 96.6 H, Lymphocytes % 2.6 L, Monocytes % 0.8 L, Eosinophils % 0, Basophils % 0 L, Absolute Granulocytes 13.4 H, Absolute Lymphocytes 0.4 L, Absolute Monocytes 0.1 L, Absolute Eosinophils 0, Absolute Basophils 0, PUBS MCHC 32.3 L 07/16/16 0615: Anion Gap 12, Estimated GFR 37 L, BUN/Creatinine Ratio 20.6, CBC w Diff MAN DIFF ORDERED, RBC 3.53 L, MCV 82.9, MCH 27.1, RDW 16.8 H, MPV 7.7, Gran % 92.8 H, Lymphocytes % 4.5 L, Monocytes % 2.7, Eosinophils % 0, Basophils % 0 L, Absolute Granulocytes 10.2 H, Absolute Lymphocytes 0.5 L, Absolute Monocytes 0.3, Absolute Eosinophils 0, Absolute Basophils 0, Platelet Estimate VERIFIED BY SMEAR, Polychromasia 1+, Poikilocytosis 1+, Basophilic Stippling SLIGHT, Anisocytosis 1+, Ovalocytes 1+, PUBS MCHC 32.6 L Microbiology 07/16 1200 URINE ROUT: Legionella Antigen - COMP 07/16 1200 URINE ROUT: Streptococcus pneumoniae Antigen (M - COMP Assessment/Plan Assessment/Plan The patient is significantly improved. I would recommend ambulating him and if he is comfortable and maintains saturations he can probably be discharged. I would recommend a follow-up chest x-ray prior to discharge. He does have an echocardiogram planned and I would wait until this is done before discharging him. I recommend discharging him on 80 mg of Lasix daily. I will have his device interrogated to look at atrial fibrillation burden and Optivol readings. Continue telemetry? Yes
[2016-07-17] MEDS ORDERED: LASIX40 M1 PO (13:49)
--- NOTE | 2016-07-17 13:52 | Patient Discharge Instructions ---
Discharge Instructions General Discharge Information You were seen/treated for: CHF/COPD exacerbation Special Instructions: Please follow up with lumber scaler Dr. Ramirez and orthopedic nurse Dr. Shell within [address] Ramirez may review your echocardiogram finding at that time. Please follow up with your primary care physician Dr. Delatorre within 1-2 weeks. Diet Continue normal diet: Yes Recommended Diet: Diabetic, Heart Healthy Activity Full Activity/No Limits: Yes (as tolerated) Acute Coronary Syndrome Inclusion Criteria At DC or during hospital stay patient has or had the following: ACS DIAGNOSIS No Discharge Core Measures Meds if any: Prescribed or Continued at Discharge Meds if any: NOT Prescribed or Continued at Discharge Congestive Heart Failure Inclusion Criteria At DC or during hospital stay patient has or had the following: CHF DIAGNOSIS No Discharge Core Measures Meds if any: Prescribed or Continued at Discharge Meds if any: NOT Prescribed or Continued at Discharge Cerebrovascular accident Inclusion Criteria At DC or during hospital stay patient has or had the following: CVA/TIA Diagnosis No Discharge Core Measures Meds if any: Prescribed or Continued at Discharge Meds if any: NOT Prescribed or Continued at Discharge Venous thromboembolism Inclusion Criteria VTE Diagnosis No VTE Type NONE VTE Confirmed by (Test) NONE Discharge Core Measures - Per Current guidelines, there needs to be overlap - treatment for the first 5 days of Warfarin therapy. - If discharged on Warfarin prior to 5 days of - overlap therapy, the patient will need to be - assessed for post discharge needs including - *Post discharge parental anticoagulation - *Warfarin and/or parental anticoagulation education - *Follow up date to check INR post discharge At least 5 days overlap therapy as Inpatient No Meds if any: Prescribed or Continued at Discharge Note: Overlap Therapy is Warfarin and Anticoagulant Meds if any: NOT Prescribed or Continued at Discharge
[2016-07-17] MEDS ORDERED: PREDNISONE20 M1 PO (13:59)
--- NOTE | 2016-07-17 14:31 | RADIOLOGY REPORT ---
EXAMINATION: CHEST 1 VIEW CLINICAL INFORMATION: Dyspnea. Wheezing. COMPARISON: 07/15/2016. TECHNIQUE: An AP view of the chest is provided. FINDINGS: The cardiac silhouette is stable. Pacer leads are in unchanged position. The mediastinal and hilar contours are unremarkable. There are neither pleural effusions nor pneumothoraces. There are no consolidations. The osseous structures are unremarkable. IMPRESSION: No evidence for acute disease.
[2016-07-17 15:54] VITALS: BP 146/70
--- NOTE | 2016-07-17 17:47 | NUR ---
NOTIFIED BY MANAGER [employer] THAT PATIENT'S AICD WAS FIRING. PATIENT DENIED PAIN, SOB, CP. BP 150/64, HR 101, SAT 93% 1L NA. NOTIFIED DR JOSUE. EKG ORDERED. WILL CONT TO MONITOR.
--- NOTE | 2016-07-17 18:08 | ECHOCARDIOGRAM REPORT ---
SONDRA CANO Age: 76 : 1940 Gender: M Exam Date: 07/17/2016 15:45 Exam Location: [address] Ht (in): 69 Wt (lb): 187 BSA: 2.05 BP: 148 / 68 Ordering Physician: SAUL RAMIREZ MD Referring Physician: SAUL RAMIREZ MD Technologist: Elena Kern [facility] Room Number: 182 Indications: HEART FAILURE Rhythm: Paced Technical Quality: Good FINDINGS Left Ventricle Normal size left ventricle. Mild to moderate concentric left ventricular hypertrophy. Left ventricular systolic function is mildly decreased with estimated ejection fraction 55-60%. There is mild postero-lateral hypokinesis seen. Right Ventricle Normal right ventricular size and function. Catheter/pacemaker wire in the right ventricular cavity. Right Atrium Normal right atrial size. Catheter/pacemaker wire in the right atrial cavity. Left Atrium Moderate left atrial dilatation. Mitral Valve There is moderate thickening of the anterior mitral leaflet and mild thickening of the posterior leaflet.rpis-eb-[id number] mitral regurgitation. Aortic Valve Focal thickening of the aortic valve cusps. No aortic stenosis. No aortic regurgitation. Tricuspid Valve Structurally normal tricuspid valve. Trace to mild tricuspid regurgitation. Right ventricular systolic pressure estimated to be elevated at 50-55 mmHg. Moderate pulmonary hypertension. Pulmonic Valve Pulmonic valve not well visualized. No pulmonic regurgitation. Pericardium No pericardial or pleural effusion. Great Vessels Normal size aortic root. The inferior vena cava is mildly dilated. CONCLUSIONS Mild to moderate concentric left ventricular hypertrophy. Left ventricular systolic function is mildly decreased with estimated ejection fraction 55-60%. There is mild postero-lateral hypokinesis seen. Catheter/pacemaker wire in the right atrial cavity. Moderate left atrial dilatation. There is moderate thickening of the anterior mitral leaflet and mild thickening of the posterior leaflet. Xleo-[id number] mitral regurgitation. Focal thickening of the aortic valve cusps. No aortic stenosis. Right ventricular systolic pressure estimated to be elevated at 50- 55 mmHg. Moderate pulmonary hypertension. The inferior vena cava is mildly dilated. Compared to previous echocardiogram of 03/29/2015 results are similar except for increased right ventricular systolic pressure estimation. Saul Ramirez M.D. (Electronically Signed) Final Date: 17 Jul 2016 18:07 MEASUREMENTS (Male / Female) Normal Values 2D ECHO LV Diastolic Diameter PLAX 4.8 cm 4.2 - 5.9 / 3.9 - 5.3 cm LV Systolic Diameter PLAX 2.8 cm 2.1 - 4.0 cm LV Fractional Shortening PLAX 41.7 % 25 - 46 % LV Ejection Fraction 2D Teich 72.5 % IVS Diastolic Thickness 1.4 cm LVPW Diastolic Thickness 1.3 cm LV Relative Wall Thickness 0.6 RV Internal Dim ED PLAX 3.3 cm 1.9 - 3.8 cm LVOT Diameter 1.8 cm Aortic Root Diameter 2.6 cm LA Systolic Diameter LX 4.0 cm 3.0 - 4.0 / 2.7 - 3.8 cm LA Volume 108.0 cm 18 - 58 / 22 - 52 cm DOPPLER AV Peak Velocity 138.0 cm/s AV Peak Gradient 7.6 mmHg AV Mean Velocity 96.6 cm/s AV Mean Gradient 4.0 mmHg AV Velocity Time Integral 27.3 cm LVOT Peak Velocity 104.0 cm/s LVOT Peak Gradient 4.3 mmHg LVOT Mean Velocity 65.6 cm/s LVOT Mean Gradient 2.0 mmHg LVOT Velocity Time Integral 16.5 cm LVOT Stroke Volume 42.0 cm AV Area Cont Eq vti 1.5 cm AV Area Cont Eq pk 1.9 cm MV Peak Velocity 132.0 cm/s MV Peak Gradient 7.0 mmHg MV Mean Velocity 73.1 cm/s MV Mean Gradient 3.0 mmHg Mitral E Point Velocity 118.0 cm/s MV PHT Velocity 135.0 cm/s MV Deceleration Fallon 739.0 cm/s MV Pressure Half Time 54.8 ms MV Area PHT 4.0 cm MV Deceleration Time 232.0 ms TR Peak Velocity 347.0 cm/s TR Peak Gradient 48.2 mmHg Right Atrial Pressure 5.0 mmHg Pulmonary Artery Systolic Pressu 53.2 mmHg Right Ventricular Systolic Press 53.2 mmHg PV Peak Velocity 103.0 cm/s PV Peak Gradient 4.2 mmHg PV Mean Velocity 67.4 cm/s PV Mean Gradient 2.0 mmHg PV Velocity Time Integral 17.8 cm LV E' Lateral Velocity 8.2 cm/s Mitral E to LV E' Lateral Ratio 14.4 LV E' Septal Velocity 7.5 cm/s Mitral E to LV E' Septal Ratio 15.7
--- NOTE | 2016-07-17 18:35 | PN- Pulmonary ---
Subjective HPI/Critical Care Issues: Patient seen and examined. Resting comfortably in bed with no acute complaints. Reports much improvement in cough and breathing. Would like to go home today to take care of his . Currently satting well on 1-2 liters of oxygen via NC. Denies any chest pain, palpitations, lightheadedness, dizziness, abdominal pain, n/v/c/d. No acute events reported overnight. Review of Systems Constitutional: Reports: see HPI. Objective Current Medications: Current Medications Sig/Clare Start time Last Medication Dose Route Stop Time Status Admin Acetaminophen 650 MG Q6P PRN 07/15 1330 AC PO Albuterol Sulfate 3 ML BID 07/17 2200 AC 07/17 INH 1050 Allopurinol 300 MG DAILY 07/15 1511 AC 07/17 PO 0943 Amiodarone HCl 100 MG DAILY 07/16 1000 AC 07/17 PO 0944 Amlodipine Besylate 5 MG DAILY 07/15 1512 AC 07/17 PO 0943 Diltiazem HCl 120 MG DAILY 07/15 1512 AC 07/17 PO 0944 Furosemide 40 MG DAILY 07/17 1000 AC 07/17 PO 0943 Insulin Aspart 0 TIDAC 07/15 1700 AC 07/17 SC 1741 Magnesium Oxide 400 MG DAILY 07/15 1514 AC 07/17 PO 0943 Methylprednisolone 40 MG Q12 07/16 1000 AC 07/17 IV 0943 Pravastatin Sodium 80 MG 1700 07/15 1700 AC 07/17 PO 1740 Rivaroxaban 15 MG 1700 07/15 1700 AC 07/17 PO 1741 Tamsulosin HCl 0.4 MG DAILY 07/15 1513 AC 07/17 PO 0943 Vital Signs & I&O Last 24 Hrs of Vitals and I&O: Vital Signs Date Time Temp Pulse Resp B/P B/P Pulse O2 O2 Flow FiO2 Mean Ox Delivery Rate 07/17 1554 97.6 95 16 146/70 93 Room Air 07/17 1050 Nasal 1.0L Cannula 07/17 1050 96 Nasal 1.0L Cannula 07/17 0944 73 146/68 07/17 0943 73 146/78 07/17 0943 73 146/80 07/17 0818 98.0 66 20 148/64 95 Nasal 1.5L Cannula 07/17 0000 96 Nasal 1.5L Cannula 07/16 2231 97.5 76 20 144/70 94 Nasal Cannula Intake & Output 07/17 1600 07/17 0800 07/17 0000 Intake Total 400 400 520 Output Total 960 839 5137 Balance -175 -275 -480 Intake, Oral 400 400 520 Output, Urine 912 577 6738 Patient 187 lb Weight Weight Standing Scale Measurement Method Laboratory Tests 07/17 07/16 0615 0615 Chemistry Sodium (137 - 145 mmol/L) 135 L 137 Potassium (3.5 - 5.1 mmol/L) 4.4 4.4 Chloride (98 - 107 mmol/L) 99 100 Carbon Dioxide (22 - 30 mmol/L) 27 25 Anion Gap (5 - 16) 9 12 BUN (9 - 20 mg/dL) 48 H 37 H Creatinine (0.7 - 1.2 mg/dL) 1.7 H 1.8 H Estimated GFR (>60 ml/min) 39 L 37 L BUN/Creatinine Ratio (7 - 25 %) 28.2 H 20.6 Hematology CBC w Diff NO MAN DIFF REQ MAN DIFF ORDERED WBC (4.8 - 10.8 /CUMM) 13.8 H 11.0 H RBC (4.70 - 6.10 /CUMM) 3.44 L 3.53 L Hgb (14.0 - 18.0 G/DL) 9.2 L 9.6 L Hct (42 - 52 %) 28.6 L 29.3 L MCV (80.0 - 94.0 FL) 83.2 82.9 MCH (27.0 - 31.0 PG) 26.9 L 27.1 RDW (11.5 - 14.5 %) 16.7 H 16.8 H Plt Count (130 - 400 /CUMM) 275 277 MPV (7.4 - 10.4 FL) 7.7 7.7 Gran % (42.2 - 75.2 %) 96.6 H 92.8 H Lymphocytes % (20.5 - 51.1 %) 2.6 L 4.5 L Monocytes % (1.7 - 9.3 %) 0.8 L 2.7 Eosinophils % (0 - 5 %) 0 0 Basophils % (0.0 - 2.0 %) 0 L 0 L Absolute Granulocytes (1.4 - 6.5 /CUMM) 13.4 H 10.2 H Absolute Lymphocytes (1.2 - 3.4 /CUMM) 0.4 L 0.5 L Absolute Monocytes (0.10 - 0.60 /CUMM) 0.1 L 0.3 Absolute Eosinophils (0.0 - 0.7 /CUMM) 0 0 Absolute Basophils (0.0 - 0.2 /CUMM) 0 0 Platelet Estimate (ADEQUATE) VERIFIED BY SMEAR Polychromasia 1+ Poikilocytosis 1+ Basophilic Stippling SLIGHT Anisocytosis 1+ Ovalocytes 1+ PUBS MCHC (33.0 - 37.0 G/DL) 32.3 L 32.6 L Microbiology Date/Time Procedure - Status Source Growth 07/16 1746 Respiratory Culture - CAN LOWER RESP Cancelled: SPECIMEN NOT RECEIVED IN LABORATORY 07/16 174 Gram Stain - CAN LOWER RESP Cancelled: SPECIMEN NOT RECEIVED IN LABORATORY 07/16 1200 Legionella Antigen - COMP URINE ROUT 07/16 1200 Streptococcus pneumoniae Antigen (M - COMP URINE ROUT 07/15 132 Respiratory Culture - CAN LOWER RESP Cancelled: SPECIMEN NOT RECEIVED IN LABORATORY 07/15 132 Gram Stain - CAN LOWER RESP Cancelled: SPECIMEN NOT RECEIVED IN LABORATORY 07/15 132 Clostridium difficile Toxin A & B - CAN STOOL Cancelled: SPECIMEN NOT RECEIVED IN LABORATORY 07/15 1329 Blood Culture - CAN BLOOD Cancelled: Cancelled via OE: Error 07/15 1328 Blood Culture - CAN BLOOD Cancelled: Cancelled via OE: Error Impression/Plan Impression/Plan Impression/Plan: Gen.: Well-nourished, well-developed, mild to moderate respiratory distress Head: Normocephalic, atraumatic. Eyes: Normal inspection bilaterally Ears: Normal inspection bilaterally Nose: Normal inspection Throat/mouth : Moist mucosa Neck: Supple, full range of motion, no goiter Heart: Regular rate and rhythm, no murmurs rubs or gallops Lungs: Decreased breath sounds bilaterally with scattered wheezes and mild rhonchi, no Rales Chest: Nontender Back: Normal range of motion Abdomen: Soft, nontender, nondistended, normal bowel sounds Extremities: Normal range of motion grossly, equal radial pulses, no cyanosis clubbing or edema, calves nt Neurologic: Cranial nerves grossly intact, speech is clear Skin: warm and dry Psychiatric: Calm, cooperative, no apparent delusions or hallucinations SIGNIFICANT DATA Chest x-ray reviewed shows mild congestive heart failure Previous echocardiogram showed moderate to severe pulmonary hypertension with normal ejection fraction with [id number] MR Previous CT scan does reveal that he has COPD with mucous plugging with volume loss with bronchiolitis type picture with minute pulmonary nodules with the atrophic left kidney and secular aneurysm of the descending aorta. IMPRESSION This is a 76-year-old gentleman with significant COPD, coronary artery disease with previous cardiac cath, biventricular ICD, hypertension, atrial fibrillation on Xeralto, chronic diastolic heart failure with normal ejection fraction, moderate to severe pulmonary hypertension, mitral regurgitation which appears to be mild to moderate, diabetes, hearing loss, gout and osteoarthritis, significant COPD with no recent intubation who is on 1 L of oxygen, with a 40- pack-year smoking history, has quit in 2013, now here with acute shortness of breath. His issues include * Resolving Acute COPD exacerbation with wheezing. Does not appear to have any purulent bacterial bronchitis. * Chronic diastolic heart failure now has evidence of acute diastolic heart failure with pulmonary edema on x-ray and elevated proBNP * Previous history of MRSA colonization with no pyogenic sputum * Significant COPD with bronchiolitis as well * Cor pulmonale with chronic pulmonary hypertension probably related to his diastolic heart disease and as well as significant COPD * Right middle lobe bronchiectasis and collapse from recurrent pneumonia with no clinical evidence suggestive of worsening bronchiectasis * Small lung nodules * Chronic kidney disease with atrophic kidney * Mild aortic aneurysm. RECOMMENDATION * Continue steroids reduce the dose to 50 and and 40 in two days and a two week taper * Lasix per cardio * Continue Xeralto * Cont amiodarone * Continue his antihypertensive medications * Continue Flomax * Albuterol and ipratropium [id number] every 4 hours for now * If his sputum increases will start on po doxy 100 bid for seven days dc in am if stable We will follow closely
--- NOTE | 2016-07-17 19:41 | PN- Att Addend ---
Attending Addendum Attending Brief Note Events over the weekend noted patient feeling better less short of breath patient was seen by Dr. Shell and Dr. Ramirez she was sent for another chest x- ray that didn't show any more congestion that patient was going to be discharged apparently went into atrial fibrillation at a faster rate. Patient will be monitored will follow Saul Ramirez MD's recommendations. His vital signs are stable O2 saturation is acceptable Intake & Output 07/17 1600 07/17 0400 07/16 1600 07/16 0400 07/15 1600 07/15 0400 Intake Total 420 775 1057 300 0 Output Total 1250 1000 1200 3150 525 Balance -450 -480 -180 -2850 -525 Intake, IV 15 Intake, Oral 512 037 3572 300 0 Output, Urine 1250 1000 1200 3150 525 Patient 187 lb 185 lb 188 lb Weight Weight Standing Scale Standing Scale Reported by Patient Measurement Method Current Medications Sig/Clare Start time Last Medication Dose Route Stop Time Status Admin Acetaminophen 650 MG Q6P PRN 07/15 1330 AC PO Albuterol Sulfate 3 ML BID 07/17 2200 AC 07/17 INH 1050 Allopurinol 300 MG DAILY 07/15 1511 AC 07/17 PO 0943 Amiodarone HCl 100 MG DAILY 07/16 1000 AC 07/17 PO 0944 Amlodipine Besylate 5 MG DAILY 07/15 1512 AC 07/17 PO 0943 Diltiazem HCl 120 MG DAILY 07/15 1512 AC 07/17 PO 0944 Furosemide 40 MG DAILY 07/17 1000 AC 07/17 PO 0943 Insulin Aspart 0 TIDAC 07/15 1700 AC 07/17 SC 1741 Magnesium Oxide 400 MG DAILY 07/15 1514 AC 07/17 PO 0943 Methylprednisolone 40 MG Q12 07/16 1000 AC 07/17 IV 0943 Pravastatin Sodium 80 MG 07/15 1700 AC 07/17 PO 1740 Rivaroxaban 15 MG 07/15 1700 AC 07/17 PO 1741 Tamsulosin HCl 0.4 MG DAILY 07/15 1513 AC 07/17 PO 0943 Laboratory Tests 07/17/16 0615: Anion Gap 9, Estimated GFR 39 L, BUN/Creatinine Ratio 28.2 H, CBC w Diff NO MAN DIFF REQ, RBC 3.44 L, MCV 83.2, MCH 26.9 L, RDW 16.7 H, MPV 7.7, Gran % 96.6 H, Lymphocytes % 2.6 L, Monocytes % 0.8 L, Eosinophils % 0, Basophils % 0 L, Absolute Granulocytes 13.4 H, Absolute Lymphocytes 0.4 L, Absolute Monocytes 0.1 L, Absolute Eosinophils 0, Absolute Basophils 0, PUBS MCHC 32.3 L 07/16/16 0615: Anion Gap 12, Estimated GFR 37 L, BUN/Creatinine Ratio 20.6, CBC w Diff MAN DIFF ORDERED, RBC 3.53 L, MCV 82.9, MCH 27.1, RDW 16.8 H, MPV 7.7, Gran % 92.8 H, Lymphocytes % 4.5 L, Monocytes % 2.7, Eosinophils % 0, Basophils % 0 L, Absolute Granulocytes 10.2 H, Absolute Lymphocytes 0.5 L, Absolute Monocytes 0.3, Absolute Eosinophils 0, Absolute Basophils 0, Platelet Estimate VERIFIED BY SMEAR, Polychromasia 1+, Poikilocytosis 1+, Basophilic Stippling SLIGHT, Anisocytosis 1+, Ovalocytes 1+, PUBS MCHC 32.6 L 07/15/16 0940: Magnesium Cancelled, Xvx-J-Dmxfdxahrgr Pept Cancelled 07/15/16 0934: Anion Gap 12, Estimated GFR 49 L, BUN/Creatinine Ratio 18.6, Glucose 110 H, Calcium 8.6, Magnesium 1.8, Total Bilirubin 0.4, AST 17, ALT 28, Alkaline Phosphatase 78, Troponin I 0.01, Xax-Z-Yucjygjujfl Pept 5330 H, Total Protein 6.1 L, Albumin 3.4 L, Globulin 2.7, Albumin/Globulin Ratio 1.3, CBC w Diff NO MAN DIFF REQ, RBC 3.53 L, MCV 83.1, MCH 27.0, RDW 17.0 H, MPV 6.9 L, Gran % 80.3 H, Lymphocytes % 12.7 L, Monocytes % 5.4, Eosinophils % 1.5, Basophils % 0.1, Absolute Granulocytes 7.6 H, Absolute Lymphocytes 1.2, Absolute Monocytes 0.5, Absolute Eosinophils 0.1, Absolute Basophils 0, PUBS MCHC 32.5 L Microbiology 07/16 1746 LOWER RESP: Respiratory Culture - CAN Cancelled: SPECIMEN NOT RECEIVED IN LABORATORY 07/16 1746 LOWER RESP: Gram Stain - CAN Cancelled: SPECIMEN NOT RECEIVED IN LABORATORY 07/16 1200 URINE ROUT: Legionella Antigen - COMP 07/16 1200 URINE ROUT: Streptococcus pneumoniae Antigen (M - COMP 07/15 1329 LOWER RESP: Respiratory Culture - CAN Cancelled: SPECIMEN NOT RECEIVED IN LABORATORY 07/15 1329 LOWER RESP: Gram Stain - CAN Cancelled: SPECIMEN NOT RECEIVED IN LABORATORY 07/15 132 STOOL: Clostridium difficile Toxin A & B - CAN Cancelled: SPECIMEN NOT RECEIVED IN LABORATORY 07/15 1328 BLOOD: Blood Culture - CAN Cancelled: Cancelled via OE: Error 07/15 1328 BLOOD: Blood Culture - CAN Cancelled: Cancelled via OE: Error Vital Signs Date Time Temp Pulse Resp B/P B/P Pulse O2 O2 Flow FiO2 Mean Ox Delivery Rate 07/17 1554 97.6 95 16 146/70 93 Room Air 07/17 1050 Nasal 1.0L Cannula 07/17 1050 96 Nasal 1.0L Cannula 07/17 0944 73 146/68 07/17 0943 73 146/78 07/17 0943 73 146/80 07/17 0818 98.0 66 20 148/64 95 Nasal 1.5L Cannula 07/17 0000 96 Nasal 1.5L Cannula 07/16 2231 97.5 76 20 144/70 94 Nasal Cannula Intake & Output 07/17 1600 07/17 0800 07/17 0000 Intake Total 400 400 520 Output Total 914 955 6845 Balance -175 275 480 Intake, Oral 400 400 520 Output, Urine 057 075 9976 Patient 187 lb Weight Weight Standing Scale Measurement Method
--- NOTE | 2016-07-18 00:02 | NUR ---
AT APPROX [id number] THIS RN NOTICED PT HEART RATE WAS 120-140S, HIGH 150'S. PT WS PROFUSELY DIAPHORETIC, VERY SHORT OF BREATH AT REST, AND COMPLAINTED OF A HEAVINESS IN HIS CHEST. PER DR JOSUE (AFTER PREVIOUS TACHYCARDIA EPISODE) EKG WAS ORDERED DUE TO INCREASED HEART RATE AND PACER SPIKES PRESENT ON TELE MONITOR. VS AT THAT TIME WERE 156/74, HR 130-145, TEMP 98.2, AND 91% ON 3L. DR. SEGAL WAS CALLED AND ORDERED A TROPONIN. RESPIRATORY WAS CALLED AND EVALUATED PT (NEB GIVEN PER THIS RN'S UNDERSTANDING). BLOOD SUGAR WAS 330. SYMPTOMS RESOLVED AFTER SEVERAL MINUTES.
[2016-07-18 00:23] VITALS: BP 150/68
--- NOTE | 2016-07-18 05:24 | Event Note ---
Event Note Event Note: Around 9:45 PM pt had episode of diaphoresis, chest pain and SOB. EKG and troponin negative for acute changes. He was SOB so ordered neb treatment and put him on 2-3L NC. No further complaints.
--- NOTE | 2016-07-18 06:41 | PN- Housestaff ---
Subjective Follow-up For: Acute onset shortness breath most likely congestive heart failure exacerbation Tele-Events Since Last Visit: Single pacing, HR 70-80s Multiple episodes of vtach overnight Subjective: Patient seen and examined. Resting comfortably in bed with no acute complaints. Around 9:45 PM pt had episode of diaphoresis, chest pain and SOB. EKG and troponin negative for acute changes. He was SOB so ordered neb treatment and put him on 2-3L NC. No further complaints. Denies any chest pain, palpitations, lightheadedness, dizziness, abdominal pain, n/v/c/d. No acute events reported overnight. Review of Systems Constitutional: Reports: see HPI. Objective Last 24 Hrs of Vital Signs/I&O Vital Signs Date Time Temp Pulse Resp B/P B/P Pulse O2 O2 Flow FiO2 Mean Ox Delivery Rate 07/18 0800 Nasal 3.0L Cannula 07/18 0023 97.8 106 16 150/68 95 Nasal 3.0L Cannula 07/18 0000 Nasal 3.0L Cannula 07/17 1940 92 Room Air 07/17 1600 Nasal 1.0L Cannula 07/17 1554 97.6 95 16 146/70 93 Room Air 07/17 1050 Nasal 1.0L Cannula 07/17 1050 96 Nasal 1.0L Cannula 07/17 0944 73 146/68 07/17 0943 73 146/78 07/17 0943 73 146/80 Intake & Output 07/18 1600 07/18 0800 07/18 0000 Intake Total 120 610 Output Total 1200 700 Balance -1080 -90 Intake, IV 10 Intake, Oral 120 600 Output, Urine 1200 700 Patient 86.353 kg Weight Weight Chair scale Measurement Method Physical Exam General Appearance: Alert, Oriented X3, Cooperative, No Acute Distress Other Physical Findings: Cardiovascular: Normal S1, Normal S2 Lungs: bilateral wheezing with reduced air entry Abdomen: Soft, No Tenderness Extremities: No Edema Current Medications: Current Medications Sig/Clare Start time Last Medication Dose Route Stop Time Status Admin Acetaminophen 650 MG Q6P PRN 07/15 1330 AC PO Albuterol Sulfate 3 ML BID 07/17 2200 AC 07/17 INH 1940 Allopurinol 300 MG DAILY 07/15 1511 AC 07/17 PO 0943 Amiodarone HCl 100 MG DAILY 07/16 1000 AC 07/17 PO 0944 Amlodipine Besylate 5 MG DAILY 07/15 1512 AC 07/17 PO 0943 Diltiazem HCl 120 MG DAILY 07/15 1512 AC 07/17 PO 0944 Furosemide 40 MG DAILY 07/17 1000 AC 07/17 PO 0943 Insulin Aspart 0 TIDAC 07/15 1700 AC 07/17 SC 1741 Magnesium Oxide 400 MG DAILY 07/15 1514 AC 07/17 PO 0943 Methylprednisolone 40 MG Q12 07/16 1000 AC 07/17 IV 2035 Pravastatin Sodium 80 MG 07/15 1700 AC 07/17 PO 1740 Rivaroxaban 15 MG 07/15 1700 AC 07/17 PO 1741 Tamsulosin HCl 0.4 MG DAILY 07/15 1513 AC 07/17 PO 0943 Last 24 Hrs of Lab/[place] Results Last 24 Hrs of Labs/Mics: Laboratory Tests 07/18/16 0640: Anion Gap 10, Estimated GFR 39 L, BUN/Creatinine Ratio 34.7 H, Magnesium 2.3, CBC w Diff Pending, WBC Pending, RBC Pending, Hgb Pending, Hct Pending, MCV Pending, MCH Pending, RDW Pending, Plt Count Pending, MPV Pending, PUBS MCHC Pending 07/17/16 2150: Troponin I 0.02 Microbiology 07/17 2009 LOWER RESP: Respiratory Culture - RES 07/17 2009 LOWER RESP: Gram Stain - RES Assessment/Plan Assessment: 76-year-old gentleman with a past medical history significant for 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 # Acute hypoxic resp failure - resolved Reportedly hypoxic requiring 3 liters of oxygen on admission. He uses 1 liter at home only during nights. Most likely 2/2 acute CHF/COPD exacerbation. Currently satting well on 1-2 liters of oxygen via NC. * Continue cardiac monitoring * Vitals per protocol * TRC neb tx as needed * Oxygen supplement to maintain saturation above 92% * Oxygen taper trail today * Management for CHF/COPD as below # Acute CHF exacerbation Echocardiogram done in March 2015 showed Mild concentric left ventricular hypertrophy ,EF of 55-60 % with evidence of moderate to severe primary hypertension and pulmonary regurgitation. * Continue Lasix 40mg BID IV, consider decreasing the dose today * Appreciate cardio recs * Maintain negative fluid balance. * Strict I/Os with daily weights * Switch IV Solumedrol to Prednisone 40mg daily and taper on discharge * Continue IV Lasix 40 mg twice a day, discahrge on Lasix 80mg PO daily at home * Follow up repeat echo - slightly decreased EF at 55-60%. No significant abnormalities compared to the previous echo # COPD exacerabtion Patient has a history of right middle lobe bronchiectasis and collapse from recurrent pneumonia. Although he enorses a cough which started at home, it is improving significant and he has been afebrile with no signs of infection since the admission. Patient received 1 dose of IV vancomycin in the ED in view of history of MRSA. * Watch off antibiotics * Patient cannot get by mouth azithromycin due to prolonged QTC 530 * If productive cough persists/worsens and he develops any signs of infection, he may be started on doxycycline. # Afib with RVR. Patient had an episode of rapid afib last night. Rate currently well controlled * Continuous cardiac monitoring * Cont Xarelto at home dose * Appreciate cardio recs * Increase amiodarone 100mg PO daily to 200mg PO BID for 2 weeks and then decrease to 200mg PO daily afterwards # History of coronary artery disease(status post 5 stents with biventricular ICD : * Continue home medications including labetalol, pravastatin 80 mg. # History of resistant hypertension: * Continue home medications including amlodipine, losartan, and labetalol # History of chronic kidney disease stage II with evidence of atrophic kidney * Monitor BUN/creatinine daily * Avoid nephrotoxic agent # History of BPH * Continue Flomax # History of chronic normocytic anemia * Continue to monitor H&H # Hx of diabetes * Novolog SSI with accuchecks * Diabetic diet - Diabetic diet - Mild to moderate pain controlled with Tylenol - DVT prophylaxis with Xarelto - Full code Problem List: 1. CHF (congestive heart failure) 2. Acute on chronic diastolic CHF (congestive heart failure) 3. Full code status 4. Dyspnea 5. CKD (chronic kidney disease) 6. Renal insufficiency 7. Anemia 8. COPD (chronic obstructive pulmonary disease) 9. Diabetes 10. Hypertension 11. ATRIAL FIBRILATION Pain Ratin Pain Location: 0 Pain Goal: Remain pain free Pain Plan: Mild path Tomorrow's Labs & Rationales: None
[2016-07-18 08:04] LABS: ABSOLUTE BASOPHIL COUNT 0 /CUMM (0.0-0.2); ABSOLUTE EOSINOPHIL COUNT 0 /CUMM (0.0-0.7); ABSOLUTE LYMPH COUNT 0.3 /CUMM (1.2-3.4); ABSOLUTE MONOCYTE COUNT 0.3 /CUMM (0.10-0.60); BASOPHIL % 0 % (0.0-2.0); EOSINOPHIL % 0 % (0-5); HEMATOCRIT 30.1 % (42-52); MEAN CORPUSCULAR HGB CONC 32.5 G/DL (33.0-37.0); MEAN CORPUSCULAR VOLUME 83.1 FL (80.0-94.0); MEAN PLATELET VOLUME 7.6 FL (7.4-10.4); PLATELET COUNT 305 /CUMM (130-400); RBC DISTRIBUTION WIDTH 16.7 % (11.5-14.5); RED BLOOD CELL CT 3.62 /CUMM (4.70-6.10); WHITE BLOOD CELL COUNT 14.6 /CUMM (4.8-10.8)
[2016-07-18 08:23] VITALS: BP 152/60
[2016-07-18] MEDS ORDERED: LASIX80 M1 PO (10:14)
[2016-07-18] MEDS ORDERED: AMIODARONE HCL200 M1 PO ×2 (10:40→11:09)
[2016-07-18] MEDS ORDERED: PREDNISONE20 M1 PO (10:41)
--- NOTE | 2016-07-18 11:05 | PN- Cardiology ---
Subjective Subjective: The patient is feeling okay today. Yesterday he had a couple of episodes of atrial fibrillation although his rate was not excessive. We had his pacemaker/ defibrillator interrogated and it showed him having increasing amounts of atrial fibrillation over the past month and also his Optivol readings have been gradually increasing since about March. Most likely these 2 things are related. His echocardiogram showed adequate left ventricular systolic function. His pulmonary artery pressure was moderately increased. Objective Vital Signs and I&Os Vital Signs Date Time Temp Pulse Resp B/P B/P Pulse O2 O2 Flow FiO2 Mean Ox Delivery Rate 07/18 1030 96 Nasal 2.0L Cannula 07/18 0859 72 152/60 07/18 0859 72 152/60 07/18 0859 72 152/60 07/18 0823 97.6 72 18 152/60 97 Nasal 3.0L Cannula 07/18 0800 Nasal 3.0L Cannula 07/18 0023 97.8 106 16 150/68 95 Nasal 3.0L Cannula 07/18 0000 Nasal 3.0L Cannula 07/17 1940 92 Room Air 07/17 1600 Nasal 1.0L Cannula 07/17 1554 97.6 95 16 146/70 93 Room Air Intake & Output 07/18 1600 07/18 0800 07/18 0000 07/17 1600 07/17 0800 07/17 0000 Intake Total 120 610 400 400 520 Output Total 1200 700 654 172 1719 Balance -1080 -90 -175 -275 -480 Intake, IV 10 Intake, Oral 120 600 400 400 520 Output, Urine 1200 700 120 161 4843 Patient 190 lb 187 lb Weight Weight Chair scale Standing Scale Measurement Method Physical Exam: He is in no distress. HEENT exam is normal Chest reveals decreased breath sounds and mild expiratory wheezing Heart is regular with no murmurs Extremities no edema Current Medications: Current Medications Sig/Clare Start time Last Medication Dose Route Stop Time Status Admin Acetaminophen 650 MG Q6P PRN 07/15 1330 AC PO Albuterol Sulfate 3 ML BID 07/17 2199 AC 07/18 INH 1028 Allopurinol 300 MG DAILY 07/15 1511 AC 07/18 PO 0859 Amiodarone HCl 200 MG BID 07/18 2200 AC PO Amiodarone HCl 100 MG ONCE ONE 07/18 1000 DC PO 07/18 1001 Amiodarone HCl 100 MG DAILY 07/16 1000 DC 07/18 PO 0859 Amlodipine Besylate 5 MG DAILY 07/15 1512 AC 07/18 PO 0859 Diltiazem HCl 120 MG DAILY 07/15 1512 AC 07/18 PO 0859 Furosemide 40 MG ONE ONE 07/18 1015 DC 07/18 PO 07/18 1016 1042 Furosemide 40 MG DAILY 07/17 1000 AC 07/18 PO 0859 Insulin Aspart 0 TIDAC 07/15 1700 AC 07/18 SC 0854 Magnesium Oxide 400 MG DAILY 07/15 1514 AC 07/17 PO 0943 Methylprednisolone 40 MG DAILY 07/18 1000 CAN IV Methylprednisolone 40 MG Q12 07/16 1000 DC 07/17 IV 2035 Pravastatin Sodium 80 MG 1700 07/15 1700 AC 07/17 PO 1740 Prednisone 40 MG DAILY 07/18 1000 AC 07/18 PO 1040 Rivaroxaban 15 MG 07/15 1700 AC 07/17 PO 1741 Tamsulosin HCl 0.4 MG DAILY 07/15 1513 AC 07/18 PO 0859 Results Last 48 Hrs of Labs/Mics: Laboratory Tests 07/18/16 0640: Anion Gap 10, Estimated GFR 39 L, BUN/Creatinine Ratio 34.7 H, Magnesium 2.3, CBC w Diff NO MAN DIFF REQ, RBC 3.62 L, MCV 83.1, MCH 27.0, RDW 16.7 H, MPV 7.6, Gran % 96.0 H, Lymphocytes % 2.2 L, Monocytes % 1.8, Eosinophils % 0, Basophils % 0 L, Absolute Granulocytes 14.0 H, Absolute Lymphocytes 0.3 L, Absolute Monocytes 0.3, Absolute Eosinophils 0, Absolute Basophils 0, PUBS MCHC 32.5 L 07/17/16 2150: Troponin I 0.02 07/17/16 0615: Anion Gap 9, Estimated GFR 39 L, BUN/Creatinine Ratio 28.2 H, CBC w Diff NO MAN DIFF REQ, RBC 3.44 L, MCV 83.2, MCH 26.9 L, RDW 16.7 H, MPV 7.7, Gran % 96.6 H, Lymphocytes % 2.6 L, Monocytes % 0.8 L, Eosinophils % 0, Basophils % 0 L, Absolute Granulocytes 13.4 H, Absolute Lymphocytes 0.4 L, Absolute Monocytes 0.1 L, Absolute Eosinophils 0, Absolute Basophils 0, PUBS MCHC 32.3 L Microbiology 07/16 1200 URINE ROUT: Legionella Antigen - COMP 07/16 1200 URINE ROUT: Streptococcus pneumoniae Antigen (M - COMP Recent Imaging Studies: CONCLUSIONS Mild to moderate concentric left ventricular hypertrophy. Left ventricular systolic function is mildly decreased with estimated ejection fraction 55-60%. There is mild postero-lateral hypokinesis seen. Catheter/pacemaker wire in the right atrial cavity. Moderate left atrial dilatation. There is moderate thickening of the anterior mitral leaflet and mild thickening of the posterior leaflet. [id number] mitral regurgitation. Focal thickening of the aortic valve cusps. No aortic stenosis. Right ventricular systolic pressure estimated to be elevated at 50- 55 mmHg. Moderate pulmonary hypertension. The inferior vena cava is mildly dilated. Compared to previous echocardiogram of 03/29/2015 results are similar except for increased right ventricular systolic pressure estimation. Assessment/Plan Assessment/Plan Rob is improved. However he is having paroxysms of atrial fibrillation, probably related to his decreased amiodarone dose. I recommend increasing his amiodarone to 200 mg twice a day for a couple of weeks and then cutting back to a higher maintenance dose of 200 mg daily. I would also increase his Lasix to 80 mg daily. If he is ambulatory and comfortable and has good O2 saturations he can be discharged today. Continue telemetry? No
[2016-07-18] MEDS ORDERED: PREDNISONE10 M2 PO (11:13)
[2016-07-18 11:26] VITALS: BP 152/60
--- NOTE | 2016-07-18 16:06 | PN- Att Addend ---
Attending Addendum Attending Brief Note Today feeling a little better still a little tight and wheezy but overall much improved. Yesterday late had an episode of atrial fibrillation back to normal sinus rhythm, shortness of breath chest x-ray last evening showed no acute pathology. Patient was seen by cardiology this morning antiarrhythmics were adjusted and was given clearance to be discharged to be followed by cardiology and myself and pulmonary. See the discharge summary and C MR 24 TOTALS 07/18 0000 07/17 0000 Intake Total 1410 1540 Output Total 1950 2200 Balance -540 -660 Intake, IV 10 15 Intake, Oral 1400 1525 Output, Urine 1950 2200 Patient 187 lb 185 lb Weight Weight Standing Scale Standing Scale Measurement Method Current Medications Sig/Clare Start time Last Medication Dose Route Stop Time Status Admin Acetaminophen 650 MG Q6P PRN 07/15 1330 DCD PO Albuterol Sulfate 3 ML BID 07/17 2200 DCD 07/18 INH 1028 Allopurinol 300 MG DAILY 07/15 1511 DCD 07/18 PO 0859 Amiodarone HCl 200 MG BID 07/18 2200 DCD PO Amiodarone HCl 100 MG ONCE ONE 07/18 1000 DC 07/18 PO 07/18 1001 1126 Amiodarone HCl 100 MG DAILY 07/16 1000 DC 07/18 PO 0859 Amlodipine Besylate 5 MG DAILY 07/15 1512 DCD 07/18 PO 0859 Diltiazem HCl 120 MG DAILY 07/15 1512 DCD 07/18 PO 0859 Furosemide 40 MG ONE ONE 07/18 1015 DC 07/18 PO 07/18 1016 1042 Furosemide 40 MG DAILY 07/17 1000 DCD 07/18 PO 0859 Insulin Aspart 0 TIDAC 07/15 1700 DCD 07/18 SC 1256 Magnesium Oxide 400 MG DAILY 07/15 1514 DCD 07/17 PO 0943 Methylprednisolone 40 MG DAILY 07/18 1000 CAN IV Methylprednisolone 40 MG Q12 07/16 1000 DC 07/17 IV 2035 Patient Medication 1 ED .STK-MED ONE 07/18 1414 DC Teaching ED 07/18 1415 Pravastatin Sodium 80 MG 1700 07/15 1700 DCD 07/17 PO 1740 Prednisone 40 MG DAILY 07/18 1000 DCD 07/18 PO 1040 Rivaroxaban 15 MG 1700 07/15 1700 DCD 07/17 PO 1741 Tamsulosin HCl 0.4 MG DAILY 07/15 1513 DCD 07/18 PO 0859 Laboratory Tests 07/18/16 0640: Anion Gap 10, Estimated GFR 39 L, BUN/Creatinine Ratio 34.7 H, Magnesium 2.3, CBC w Diff NO MAN DIFF REQ, RBC 3.62 L, MCV 83.1, MCH 27.0, RDW 16.7 H, MPV 7.6, Gran % 96.0 H, Lymphocytes % 2.2 L, Monocytes % 1.8, Eosinophils % 0, Basophils % 0 L, Absolute Granulocytes 14.0 H, Absolute Lymphocytes 0.3 L, Absolute Monocytes 0.3, Absolute Eosinophils 0, Absolute Basophils 0, PUBS MCHC 32.5 L 07/17/16 2150: Troponin I 0.02 07/17/16 0615: Anion Gap 9, Estimated GFR 39 L, BUN/Creatinine Ratio 28.2 H, CBC w Diff NO MAN DIFF REQ, RBC 3.44 L, MCV 83.2, MCH 26.9 L, RDW 16.7 H, MPV 7.7, Gran % 96.6 H, Lymphocytes % 2.6 L, Monocytes % 0.8 L, Eosinophils % 0, Basophils % 0 L, Absolute Granulocytes 13.4 H, Absolute Lymphocytes 0.4 L, Absolute Monocytes 0.1 L, Absolute Eosinophils 0, Absolute Basophils 0, PUBS MCHC 32.3 L Vital Signs Date Time Temp Pulse Resp B/P B/P Pulse O2 O2 Flow FiO2 Mean Ox Delivery Rate 07/18 1126 72 152/60 07/18 1030 96 Nasal 2.0L Cannula 07/18 0859 72 152/60 07/18 0859 72 152/60 07/18 0859 72 152/60 07/18 0823 97.6 72 18 152/60 97 Nasal 3.0L Cannula 07/18 0800 Nasal 3.0L Cannula 07/18 0023 97.8 106 16 150/68 95 Nasal 3.0L Cannula 07/18 0000 Nasal 3.0L Cannula 07/17 1940 92 Room Air
--- NOTE | 2016-07-18 16:26 | Discharge Summary ---
Visit Information Visit Dates Admission Date: 07/15/16 Discharge Date: 07/18/16 Hospital Course Course Attending Physician: Juan Ramon Primary Care Physician: SCARLETT WATT MD Consulting Request: Consulting Specialty: Cardiology (and pulmonary) Consulting Physician: Drs. Saul Ramirez and Dr. Shell Reason for Consult: congestive heart failure and exacerbation of COPD Hospital Course: 76-year-old white male with several comorbidities comes in with increased shortness of breath wheezes. Came to the ER was found to have some congestive heart failure on x-ray and an exacerbation of COPD he was treated for that oxygen respiratory treatments IV steroids to slowly improved the day he was supposed to be discharged later on had an episode of increased shortness of breath and atrial fibrillation that is was treated the troponins were negative the chest x-ray was clear and then disposition plans were started the patient was discharged on July 18 Complications: None Allergies: Coded Allergies: NO KNOWN ALLERGIES (07/12/15) Significant Procedures: SERVICE DATE: 07/15/16 EXAM TYPE: RAD - XRY-PORTABLE CHEST XRAY EXAMINATION: XR PORTABLE CHEST CLINICAL INFORMATION: Dyspnea and wheezing. COMPARISON: Chest 05/26/2016 TECHNIQUE: Portable frontal view of the chest was obtained. FINDINGS: There is mild cardiomegaly with increased pulmonary vascularity suggestive of congestion. There are dual pacer electrodes in right atrium and right ventricle. The lungs are expanded without acute consolidation. No gross bony abnormality seen. IMPRESSION: Cardiomegaly with pulmonary vascular congestion. SERVICE DATE: 07/17/16- EXAM TYPE: RAD - XRY-PORTABLE CHEST XRAY EXAMINATION: CHEST 1 VIEW CLINICAL INFORMATION: Dyspnea. Wheezing. COMPARISON: 07/15/2016. TECHNIQUE: An AP view of the chest is provided. FINDINGS: The cardiac silhouette is stable. Pacer leads are in unchanged position. The mediastinal and hilar contours are unremarkable. There are neither pleural effusions nor pneumothoraces. There are no consolidations. The osseous structures are unremarkable. IMPRESSION: No evidence for acute disease. SERVICE DATE: 07/17/16- EXAM TYPE: CARD - ECHOCARDIOGRAM SONDRA CANO Age: 76 : 1940 Gender: M Exam Date: 07/17/2016 15:45 Exam Location: [address] Ht (in): 69 Wt (lb): 187 BSA: 2.05 BP: 148 / 68 Ordering Physician: SAUL RAMIREZ MD Referring Physician: SAUL RAMIREZ MD Technologist: Elena Kern [facility] Room Number: 182 Indications: HEART FAILURE Rhythm: Paced Technical Quality: Good FINDINGS Left Ventricle Normal size left ventricle. Mild to moderate concentric left ventricular hypertrophy. Left ventricular systolic function is mildly decreased with estimated ejection fraction 55-60%. There is mild postero-lateral hypokinesis seen. Right Ventricle Normal right ventricular size and function. Catheter/pacemaker wire in the right ventricular cavity. Right Atrium Normal right atrial size. Catheter/pacemaker wire in the right atrial cavity. Left Atrium Moderate left atrial dilatation. Mitral Valve There is moderate thickening of the anterior mitral leaflet and mild thickening of the posterior leaflet.[id number] mitral regurgitation. Aortic Valve Focal thickening of the aortic valve cusps. No aortic stenosis. No aortic regurgitation. Tricuspid Valve Structurally normal tricuspid valve. Trace to mild tricuspid regurgitation. Right ventricular systolic pressure estimated to be elevated at 50-55 mmHg. Moderate pulmonary hypertension. Pulmonic Valve Pulmonic valve not well visualized. No pulmonic regurgitation. Pericardium No pericardial or pleural effusion. Great Vessels Normal size aortic root. The inferior vena cava is mildly dilated. CONCLUSIONS Mild to moderate concentric left ventricular hypertrophy. Left ventricular systolic function is mildly decreased with estimated ejection fraction 55-60%. There is mild postero-lateral hypokinesis seen. Catheter/pacemaker wire in the right atrial cavity. Moderate left atrial dilatation. There is moderate thickening of the anterior mitral leaflet and mild thickening of the posterior leaflet. [id number] mitral regurgitation. Focal thickening of the aortic valve cusps. No aortic stenosis. Right ventricular systolic pressure estimated to be elevated at 50- 55 mmHg. Moderate pulmonary hypertension. The inferior vena cava is mildly dilated. Compared to previous echocardiogram of 03/29/2015 results are similar except for increased right ventricular systolic pressure estimation. Pertinent Lab Results: Laboratory Tests 07/18/16 0640: Anion Gap 10, Estimated GFR 39 L, BUN/Creatinine Ratio 34.7 H, Magnesium 2.3, CBC w Diff NO MAN DIFF REQ, RBC 3.62 L, MCV 83.1, MCH 27.0, RDW 16.7 H, MPV 7.6, Gran % 96.0 H, Lymphocytes % 2.2 L, Monocytes % 1.8, Eosinophils % 0, Basophils % 0 L, Absolute Granulocytes 14.0 H, Absolute Lymphocytes 0.3 L, Absolute Monocytes 0.3, Absolute Eosinophils 0, Absolute Basophils 0, PUBS MCHC 32.5 L 07/17/16 2150: Troponin I 0.02 07/17/16 0615: Anion Gap 9, Estimated GFR 39 L, BUN/Creatinine Ratio 28.2 H, CBC w Diff NO MAN DIFF REQ, RBC 3.44 L, MCV 83.2, MCH 26.9 L, RDW 16.7 H, MPV 7.7, Gran % 96.6 H, Lymphocytes % 2.6 L, Monocytes % 0.8 L, Eosinophils % 0, Basophils % 0 L, Absolute Granulocytes 13.4 H, Absolute Lymphocytes 0.4 L, Absolute Monocytes 0.1 L, Absolute Eosinophils 0, Absolute Basophils 0, PUBS MCHC 32.3 L 07/16/16 0615: Anion Gap 12, Estimated GFR 37 L, BUN/Creatinine Ratio 20.6, CBC w Diff MAN DIFF ORDERED, RBC 3.53 L, MCV 82.9, MCH 27.1, RDW 16.8 H, MPV 7.7, Gran % 92.8 H, Lymphocytes % 4.5 L, Monocytes % 2.7, Eosinophils % 0, Basophils % 0 L, Absolute Granulocytes 10.2 H, Absolute Lymphocytes 0.5 L, Absolute Monocytes 0.3, Absolute Eosinophils 0, Absolute Basophils 0, Platelet Estimate VERIFIED BY SMEAR, Polychromasia 1+, Poikilocytosis 1+, Basophilic Stippling SLIGHT, Anisocytosis 1+, Ovalocytes 1+, PUBS MCHC 32.6 L Microbiology 07/17 2009 LOWER RESP: Respiratory Culture - RES STAPH AUREUS 07/17 2009 LOWER RESP: Gram Stain - RES 07/16 1746 LOWER RESP: Respiratory Culture - CAN Cancelled: SPECIMEN NOT RECEIVED IN LABORATORY 07/16 1746 LOWER RESP: Gram Stain - CAN Cancelled: SPECIMEN NOT RECEIVED IN LABORATORY 07/16 1200 URINE ROUT: Legionella Antigen - COMP 07/16 1200 URINE ROUT: Streptococcus pneumoniae Antigen (M - COMP Disposition Summary Disposition Principal Diagnosis: Congestive heart failure, COPD exacerbation, atrial fibrillation Additional Diagnosis: Hypertension, dyslipidemia, coronary artery disease, pacemaker/defibrillator, diabetes mellitus 2 Discharge Disposition: home health services Discharge Instructions General Discharge Information Code Status: Full Code Patient's Diet: Healthy heart and diabetic Patient's Activity: As tolerated Follow-Up Instructions/Appts: Follow-up with Dr. Juan Ramon Ramirez MD Medications at Discharge Discharge Medications: Stop taking the following medications: Amiodarone HCl (Amiodarone HCl) 200 MG TABLET ORAL DAILY Qty = 90 Prednisone (Prednisone) 10 MG TABLET ORAL See Instructions Qty = 26 Continue taking these medications: Labetalol HCl (Labetalol HCl) 200 MG TABLET 1 Tablet ORAL TWICE DAILY Comments: NOT GIVEN IN HOSPITAL Multivitamin, Minerals, and (Centrum Silver) 1 TAB TAB 1 Tablet ORAL DAILY Comments: Last Taken: 07/14/15 Time: 9:25 AM Tiotropium [place] (Spiriva) 18 MCG CAP.W.DEV 1 Capsule Inhale through mouth DAILY Qty = 90 Comments: Last Taken: 07/14/15 Time: 9:20 AM Furosemide (Furosemide) 40 MG TABLET 1 Tablet ORAL DAILY Qty = 60 Comments: Last Taken: 07/14/15 Time: 9:25 AM FLUTICASONE/VILANTEROL (Breo Ellipta 100-25 Mcg INH) 1 POW POW 1 PUFF Inhale through mouth DAILY Qty = 60 Comments: Last Taken: NOT GIVEN IN HOSPITAL Time: (RECEIVED SUBSTITUTION) FOLIC ACID/VIT BCOMP,C (B-Znnekrv-Vxc C Time Rel Tab) 1 TER TER 1 Tablet ORAL DAILY Comments: Last Taken: 07/14/15 Time: 9:25 AM Diltiazem Hydrochloride (Diltiazem HCl) 120 MG C24 1 Capsule ORAL DAILY Qty = 90 Comments: Last Taken: 07/14/15 Time: 9:25 AM TAMSULOSIN HCL (Tamsulosin Hydrochloride) 0.4 MG CAP 1 Capsule ORAL DAILY Qty = 30 Comments: Last Taken: 07/13/15 Time: 9:10 PM Magnesium Oxide (Magnesium Oxide) 400 MG TABLET 1 Tablet ORAL DAILY Qty = 30 Comments: Last Taken: 07/14/15 Time: 9:25 AM Allopurinol (Allopurinol) 100 MG TABLET 3 Tablet ORAL DAILY Qty = 90 Comments: Last Taken: 07/18/16 Time: 9AM Albuterol Sulfate (Ventolin Hfa) 18 GM HFA.AER.AD 2 Puff Inhale through mouth EVERY SIX HOURS NEEDED as needed for SHORTNESS OF BREATH Days = 30 Comments: NOT GIVEN IN HOSPITAL Albuterol Sulfate (Albuterol Sulfate) 2.5 MG/3 ML (0.083 %) VIAL.NEB 1 Vial Inhale Solution THREE TIMES DAILY as needed for wheezing Qty = 10 Comments: Last Taken: 07/18/16 Time: 11AM Rivaroxaban (Xarelto) 15 MG TABLET 1 Tablet ORAL 5 PM Qty = 30 Comments: Last Taken: 07/17/16 Time: 5PM Losartan Potassium (Losartan Potassium) 50 MG TABLET 1 Tablet ORAL DAILY Qty = 30 Comments: NOT GIVEN IN HOSPITAL Magnesium Oxide (Magnesium Oxide) 400 MG TABLET 1 Tablet ORAL DAILY Qty = 30 Comments: Last Taken: 07/17/16 Time: 9AM Metformin HCl (Metformin HCl) 1,000 MG TABLET 1 Tablet ORAL TWICE DAILY Qty = 180 Comments: NOT GIVEN IN HOSPITAL Tiotropium [place] (Spiriva) 18 MCG CAP.W.DEV 1 Capsule Inhale through mouth DAILY Qty = 30 Comments: NOT GIVEN IN HOSPITAL Amlodipine Besylate (Norvasc) 5 MG TABLET 1 Tablet ORAL DAILY Comments: Last Taken: 07/18/16 Time: 9AM Pravastatin Sodium (Pravastatin Sodium) 80 MG TABLET 1 Tablet ORAL DAILY Comments: Last Taken: 07/17/16 Time: 5PM Start taking the following new medications: Prednisone (Prednisone) 20 MG TABLET 1-2 Tablet ORAL DAILY Qty = 4 No Refills Instructions: DATE DOSE 07/18- 07/19 40MG DAILY 07/20 - 07/21 20MG DAILY Comments: Last Taken: 07/18/16 Time: 11AM Amiodarone HCl (Amiodarone HCl) 200 MG TABLET 1 Tablet ORAL SEE INSTRUCTIONS Qty = 30 No Refills Instructions: TAKE 200MG TWICE A DAY UNTIL 08/01/16. TAKE 100MG ONCE A DAY STARTING ON 08/02/16. Comments: Last Taken: 07/18/16 Time: 12PM Furosemide (Lasix) 80 MG TABLET 1 Tablet ORAL DAILY Qty = 30 No Refills Comments: Last Taken: 07/18/16 Time: 11AM Prednisone (Prednisone) 10 MG TABLET 1 Tablet ORAL DAILY Qty = 2 No Refills Instructions: Take 10mg once a day on 07/22 and 07/23. Copies To: ARY LONGORIA,ELAINE Tomas; JOHNNIE LONGORIA,SAUL Jacinto; SCARLETT WATT MD Attending MD Review Statement Documenting Attending: SCARLETT WATT MD
--- NOTE | 2016-07-18 18:44 | PN- Pulmonary ---
Subjective HPI/Critical Care Issues: Doing well afebrile vss chest s1s2 abd soft no edema Objective Current Medications: Current Medications Sig/Clare Start time Last Medication Dose Route Stop Time Status Admin Acetaminophen 650 MG Q6P PRN 07/15 1330 DCD PO Albuterol Sulfate 3 ML BID 07/17 2200 DCD 07/18 INH 1028 Allopurinol 300 MG DAILY 07/15 1511 DCD 07/18 PO 0859 Amiodarone HCl 200 MG BID 07/18 2200 DCD PO Amiodarone HCl 100 MG ONCE ONE 07/18 1000 DC 07/18 PO 07/18 1001 1126 Amiodarone HCl 100 MG DAILY 07/16 1000 DC 07/18 PO 0859 Amlodipine Besylate 5 MG DAILY 07/15 1512 DCD 07/18 PO 0859 Diltiazem HCl 120 MG DAILY 07/15 1512 DCD 07/18 PO 0859 Furosemide 40 MG ONE ONE 07/18 1015 DC 07/18 PO 07/18 1016 1042 Furosemide 40 MG DAILY 07/17 1000 DCD 07/18 PO 0859 Insulin Aspart 0 TIDAC 07/15 1700 DCD 07/18 SC 1256 Magnesium Oxide 400 MG DAILY 07/15 1514 DCD 07/17 PO 0943 Methylprednisolone 40 MG DAILY 07/18 1000 CAN IV Methylprednisolone 40 MG Q12 07/16 1000 DC 07/17 IV 2035 Patient Medication 1 ED .STK-MED ONE 07/18 1414 [facility] 07/18 1415 Pravastatin Sodium 80 MG 1700 07/15 1700 DCD 07/17 PO 1740 Prednisone 40 MG DAILY 07/18 1000 DCD 07/18 PO 1040 Rivaroxaban 15 MG 1700 07/15 1700 DCD 07/17 PO 1741 Tamsulosin HCl 0.4 MG DAILY 07/15 1513 DCD 07/18 PO 0859 Vital Signs & I&O Last 24 Hrs of Vitals and I&O: Vital Signs Date Time Temp Pulse Resp B/P B/P Pulse O2 O2 Flow FiO2 Mean Ox Delivery Rate 07/18 1126 72 152/60 07/18 1030 96 Nasal 2.0L Cannula 07/18 0859 72 152/60 07/18 0859 72 152/60 07/18 0859 72 152/60 07/18 0823 97.6 72 18 152/60 97 Nasal 3.0L Cannula 07/18 08 Nasal 3.0L Cannula 07/18 0023 97.8 106 16 150/68 95 Nasal 3.0L Cannula 07/18 0000 Nasal 3.0L Cannula 07/17 1940 92 Room Air Intake & Output 07/18 1600 07/18 0800 07/18 0000 Intake Total 120 610 Output Total 1200 700 Balance -1080 -90 Intake, IV 10 Intake, Oral 120 600 Output, Urine 1200 700 Patient 190 lb Weight Weight Chair scale Measurement Method Impression/Plan Impression/Plan Impression/Plan: Gen.: Well-nourished, well-developed, mild to moderate respiratory distress Head: Normocephalic, atraumatic. Eyes: Normal inspection bilaterally Ears: Normal inspection bilaterally Nose: Normal inspection Throat/mouth : Moist mucosa Neck: Supple, full range of motion, no goiter Heart: Regular rate and rhythm, no murmurs rubs or gallops Lungs: Decreased breath sounds bilaterally with scattered wheezes and mild rhonchi, no Rales Chest: Nontender Back: Normal range of motion Abdomen: Soft, nontender, nondistended, normal bowel sounds Extremities: Normal range of motion grossly, equal radial pulses, no cyanosis clubbing or edema, calves nt Neurologic: Cranial nerves grossly intact, speech is clear Skin: warm and dry Psychiatric: Calm, cooperative, no apparent delusions or hallucinations SIGNIFICANT DATA Chest x-ray reviewed shows mild congestive heart failure Previous echocardiogram showed moderate to severe pulmonary hypertension with normal ejection fraction with [id number] MR Previous CT scan does reveal that he has COPD with mucous plugging with volume loss with bronchiolitis type picture with minute pulmonary nodules with the atrophic left kidney and secular aneurysm of the descending aorta. IMPRESSION This is a 76-year-old gentleman with significant COPD, coronary artery disease with previous cardiac cath, biventricular ICD, hypertension, atrial fibrillation on Xeralto, chronic diastolic heart failure with normal ejection fraction, moderate to severe pulmonary hypertension, mitral regurgitation which appears to be mild to moderate, diabetes, hearing loss, gout and osteoarthritis, significant COPD with no recent intubation who is on 1 L of oxygen, with a 40- pack-year smoking history, has quit in 2014, now here with acute shortness of breath. His issues include * Resolving Acute COPD exacerbation with wheezing. Does not appear to have any purulent bacterial bronchitis. * Chronic diastolic heart failure now has evidence of acute diastolic heart failure with pulmonary edema on x-ray and elevated proBNP * Previous history of MRSA colonization with no pyogenic sputum * Significant COPD with bronchiolitis as well * Cor pulmonale with chronic pulmonary hypertension probably related to his diastolic heart disease and as well as significant COPD * Right middle lobe bronchiectasis and collapse from recurrent pneumonia with no clinical evidence suggestive of worsening bronchiectasis * Small lung nodules * Chronic kidney disease with atrophic kidney * Mild aortic aneurysm. RECOMMENDATION * Continue steroids reduce the dose to40 in two days and a two week taper * Lasix per cardio * Continue Xeralto * Cont amiodarone * Continue his antihypertensive medications * Continue Flomax * Albuterol and ipratropium [id number] every 4 hours for now ok to dc will follow We will follow closely
== END 2016-07-18 13:28 | DRG 291 ==
LOC: DELPENDDIS → ERH 09:16 → 1NO 11:01 → ERHI 11:01 → 1NO 11:01 → CANRESERV 12:22 → ENRESERV 12:22 → ENTRNSPT 13:01 → ENRESERV 13:02 → 1NO 13:43 → CMPTRNSPT 13:55 → ENPENDDIS 07-17 14:57 → 1NO 07-18 13:28
PROVIDERS: Internal Medicine; Physician Assistant Medical; Student in an Organized Health Care Education/Training Program; ADMIT Internal Medicine
DX: I13.0 Hypertensive heart and chronic kidney disease with heart failure and stage 1 through stage 4 chronic kidney disease, or unspecified chronic kidney disease (principal); I50.33 Acute on chronic diastolic (congestive) heart failure; J96.21 Acute and chronic respiratory failure with hypoxia; N17.0 Acute kidney failure with tubular necrosis; J44.1 Chronic obstructive pulmonary disease with (acute) exacerbation; N18.2 Chronic kidney disease, stage 2 (mild); I48.91 Unspecified atrial fibrillation; Z79.01 Long term (current) use of anticoagulants; E78.5 Hyperlipidemia, unspecified; I25.10 Atherosclerotic heart disease of native coronary artery without angina pectoris; Z95.5 Presence of coronary angioplasty implant and graft; Z79.84 Long term (current) use of oral hypoglycemic drugs; E11.22 Type 2 diabetes mellitus with diabetic chronic kidney disease; Z87.891 Personal history of nicotine dependence; Z95.810 Presence of automatic (implantable) cardiac defibrillator; I27.2 Other secondary pulmonary hypertension
CPT/HCPCS: 1NP; 87184; 36415; 82436; 87040; 87070; 87147; 87449; 87450; 93005; 93010; 93306; 96374; 96375; J0456; J0696; J1644; J1940; J2920; J2930; J3370; J7040

== ENCOUNTER 2016-08-03 08:14 | Observation (INO) | payer OTHER ==
[~2016-08-03] VITALS: Ht 175.3 cm; Wt 82.6 kg
[~2016-08-03 08:14] MED LIST changes: +LASIX40 M1 PO; +LASIX80 M1 PO; +NORVASC5 M1 PO; +PRAVASTATIN SOD80 M2 PO; +PREDNISONE20 M1 PO
--- NOTE | 2016-08-03 08:20 | NUR ---
PT STATES THAT HE IS ON XARELTO AND THAT HE HAS HAD BLOODY NOSE SINCE 729 AND THAT HE IS UNABLE TO STOP IT. PT HAD SAME HAPPEN YESTERDAY AND IT TOOK AN HOUR TO STOP. CALLED HIS PMD YESTERDAY AND HE TOLD HIM IF IT HAPPENS AGAIN TO COME TO ER. MRSA+
--- NOTE | 2016-08-03 08:21 | NUR ---
PT AMB TO ROOM 1, AWAITING EVAL, ACTIVELY HOLDING PRESSURE ON NOSE
--- NOTE | 2016-08-03 08:27 | ED GENERAL ADULT ---
History of Present Illness General Chief Complaint: General Adult Stated Complaint: BLOODY NOSE Source: patient Exam Limitations: no limitations Vital Signs & Intake/Output Vital Signs & Intake/Output Vital Signs Date Time Temp Pulse Resp B/P B/P Pulse O2 O2 Flow FiO2 Mean Ox Delivery Rate 08/03 1820 168/80 08/03 1820 168/80 08/03 1820 168/80 08/03 1701 97.8 65 20 158/60 95 Room Air 08/03 1546 98.3 74 15 165/72 100 Room Air 08/03 1352 96.6 65 18 180/85 94 Room Air 08/03 1032 96.0 66 20 194/84 94 Room Air 08/03 0822 99 Room Air 08/03 0816 97.5 88 16 168/89 98 Room Air Allergies Coded Allergies: NO KNOWN ALLERGIES (07/12/15) Reconcile Medications Albuterol Sulfate 2.5 MG/3 ML (0.083 %) VIAL.NEB 1 Vial INH/ASHLEY TID PRN wheezing Albuterol Sulfate (Ventolin Hfa) 18 GM HFA.AER.AD 2 PUF INH Q6P PRN SHORTNESS OF BREATH Allopurinol 100 MG TABLET 3 TAB PO DAILY GOUT (Reported) Amiodarone HCl 200 MG TABLET 1 TAB PO DAILY AFIB (Reported) Amlodipine Besylate (Norvasc) 5 MG TABLET 1 TAB PO DAILY HTN (Reported) Diltiazem HCl (Diltiazem 12HR ER) 120 MG CAP.ER.12H 1 CAP PO DAILY HEART ( Reported) Fluticasone/Vilanterol (Breo Ellipta 100-25 Mcg INH) 100 MCG-25 MCG/DOSE BLST.W.DEV 1 PUFF INH DAILY BREATHING PROBLEMS (Reported) Furosemide (Lasix) 80 MG TABLET 1 TAB PO DAILY Diuretic Labetalol HCl 200 MG TABLET 1 TAB PO BID BP (Reported) Losartan Potassium (Cozaar) 25 MG TABLET 0.5 TAB PO DAILY HEART (Reported) Metformin HCl 1,000 MG TABLET 1 TAB PO BID DM (Reported) Multivit-Min/FA/Lycopen/Lutein (Centrum Silver Tablet) 0.4 MG-300 MCG-250 MCG TABLET 1 TAB PO DAILY VITAMIN SUPPORT (Reported) Pravastatin Sodium 80 MG TABLET 1 TAB PO DAILY HLD (Reported) Prednisone 5 MG TABLET 1 TAB PO DAILY GOUT (Reported) Rivaroxaban (Xarelto) 15 MG TABLET 1 TAB PO 1700 atrial fibrillation Tamsulosin HCl (Flomax) 0.4 MG CAP.ER.24H 1 CAP PO DAILY PROSTATE (Reported) Tiotropium [place] (Spiriva) 18 MCG CAP.W.DEV 1 CAP INH DAILY COPD (Reported) Vitamin B Complex (B Complex) 1 EACH TABLET 1 TAB PO DAILY VITAMIN SUPPORT ( Reported) Triage Note: PT STATES THAT HE IS ON XARELTO AND THAT HE HAS HAD BLOODY NOSE SINCE 729 AND THAT HE IS UNABLE TO STOP IT. PT HAD SAME HAPPEN YESTERDAY AND IT TOOK AN HOUR TO STOP. CALLED HIS PMD YESTERDAY AND HE TOLD HIM IF IT HAPPENS AGAIN TO COME TO ER Triage Nurses Notes Reviewed? yes HPI: 08/03/16 12:13 PM 76-year-old male presents to the emergency department complaining of right-sided epistaxis. He has a history of atrial fibrillation and is currently on Xarelto. His last dose was yesterday. He says that he's been intermittently bleeding over the past several weeks. Now over the past 24 hours He's had severe bleeding. He is unable to stop it. His last dose of Xarelto was yesterday. The onset of the symptoms of have been abrupt, the duration has been intermittent over weeks, the severity is significant as his symptoms required him to come to the emergency department for care. Past History Travel History Traveled to [place] past 21 day No Medical History Any Pertinent Medical History? 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 Relation not specified for: Fam hx-ischem heart disease Fam hx-ischem heart disease Hx Contributory? No Review of Systems Review of Systems Constitutional: Denies: fever. EENTM: Reports: see HPI. Respiratory: Denies: short of breath. Cardiovascular: Denies: chest pain. GI: Denies: abdominal pain. Genitourinary: Reports: no symptoms. Musculoskeletal: Reports: no symptoms. Skin: Denies: rash. Neurological/Psychological: Reports: no symptoms. Hematologic/Endocrine: Reports: no symptoms. Physical Exam Physical Exam General Appearance: alert, awake, moderate distress Head: atraumatic, active bleeding Eyes: Bilateral: normal appearance, PERRL, EOMI. Ears, Nose, Throat: pharyngeal erythema, right-sided epistaxis Neck: normal inspection, supple Respiratory: chest non-tender, no respiratory distress Cardiovascular: regular rate/rhythm Peripheral Pulses: 4+ radial (R), 4+ radial (L) Gastrointestinal: non-tender Back: normal range of motion Extremities: pedal edema Neurologic/Psych: no motor/sensory deficits, awake, alert, oriented x 3 Skin: intact, normal color, warm/dry Core Measures ACS in differential dx? No CVA/TIA Diagnosis: No Severe Sepsis Present: No Septic Shock Present: No Progress Differential Diagnoses I considered the following diagnoses in my evaluation of the patient: [ Coagulopathy, epistaxis, aspiration pneumonia] Plan of Care: Orders Procedure Date/time Status Heart Healthy Diet 08/04 B Active CBC WITHOUT DIFFERENTIAL 08/04 0600 Active BASIC ELECTROLYTES PLUS BUN&CR 08/04 0600 Active Heart Healthy Diet 08/03 D Complete Pathway - chart 08/03 1826 Active House Staff 08/03 1826 Active TYPE & SCREEN (NOT X-MATCH) 08/03 1826 Active CBC WITHOUT DIFFERENTIAL 08/03 1823 Complete FingerStick- Glucose 08/03 1647 Active Device(s) 08/03 1647 Active Vital Signs 08/03 1642 Active Teach/Educate 08/03 1642 Active Pain Treatment and Response 08/03 1642 Active Nutritional Intake, Monitor 08/03 1642 Active Isolation 08/03 1642 Active Intake & Output 08/03 1642 Active Patient Care Conference 08/03 1642 Active Activity/Ambulation 08/03 1642 Active Patient Data 08/03 1404 Active EKG 08/[address] in observation 08/03 1358 Active Vital Signs 08/03 1358 Active Code Status 08/03 1358 Active PROTHROMBIN TIME 08/03 0942 Complete COMPREHENSIVE METABOLIC PANEL 08/03 0942 Complete CBC WITHOUT DIFFERENTIAL 08/03 941 Complete Intake & Output 08/03 09 Active XRY-CHEST XRAY, PA AND LATERAL 08/03 UNK Active VTE Mechanical Prophylaxis 08/03 UNK Active MISSING MEDICATION FORM 08/03 UNK Active Current Medications Sig/Clare Start time Last Medication Dose Stop Time Status Admin Labetalol HCl 200 MG BID 08/03 2200 AC (Trandate-Normodyne 200MG Tab) Acetaminophen 650 MG Q6P PRN 08/03 1830 AC 08/03 (Tylenol) 1847 Insulin Aspart 0 TIDAC 08/03 1700 AC 08/03 (NovoLOG) 1819 Pravastatin Sodium 80 MG 1700 08/03 1700 AC 08/03 (Pravachol) 1820 Prednisone 5 MG DAILY 08/03 1631 AC 08/03 1820 Tamsulosin HCl 0.4 MG DAILY 08/03 1631 AC 08/03 (Flomax) 1820 Tiotropium [place] 1 PUF DAILY 08/03 1631 AC 08/03 (Spiriva) 1819 Losartan Potassium 12.5 MG DAILY 08/03 1630 AC (Cozaar) Amlodipine Besylate 5 MG DAILY 08/03 1629 AC 08/03 (Norvasc) 1820 Diltiazem HCl 120 MG DAILY 08/03 1629 AC 08/03 (Cardizem CD) 1820 Furosemide 80 MG DAILY 08/03 1629 AC 08/03 (Lasix) 1820 Amiodarone HCl 200 MG DAILY 08/03 1628 AC 08/03 (Cordarone) 1820 Laboratory Tests 08/03/16 1912: CBC w Diff NO MAN DIFF REQ, RBC 3.40 L, MCV 81.2, MCH 26.3 L, RDW 16.5 H, MPV 7.3 L, Gran % 78.3 H, Lymphocytes % 13.4 L, Monocytes % 6.0, Eosinophils % 1.8, Basophils % 0.5, Absolute Granulocytes 5.8, Absolute Lymphocytes 1.0 L, Absolute Monocytes 0.4, Absolute Eosinophils 0.1, Absolute Basophils 0, PUBS MCHC 32.4 L 08/03/16 1021: Anion Gap 9, Estimated GFR 39 L, BUN/Creatinine Ratio 21.8, Glucose 110 H, Calcium 8.8, Total Bilirubin 0.4, AST 19, ALT 32, Alkaline Phosphatase 72, Total Protein 6.1 L, Albumin 3.4 L, Globulin 2.7, Albumin/Globulin Ratio 1.3, PT 16.7 H, INR 1.60 H, CBC w Diff NO MAN DIFF REQ, RBC 3.73 L, MCV 81.5, MCH 26.4 L, RDW 16.4 H, MPV 6.9 L, Gran % 82.1 H, Lymphocytes % 11.1 L, Monocytes % 5.1, Eosinophils % 1.3, Basophils % 0.4, Absolute Granulocytes 7.3 H, Absolute Lymphocytes 1.0 L, Absolute Monocytes 0.5, Absolute Eosinophils 0.1 , Absolute Basophils 0, PUBS MCHC 32.4 L Initial ED EKG: paced beats Departure Departure Disposition: STILL A PATIENT Condition: Stable Clinical Impression Primary Impression: Epistaxis Secondary Impressions: Coagulopathy Referrals: SCARLETT WATT MD (PCP/Family) Departure Forms: Customer Survey General Discharge Information Comments The patient's bilateral nares were sprayed with Afrin, thrombin was applied, and bilateral 5.5 cm nasal packs (Rhino Rockets). He continued to bleed through this. He was therefore placed in observation. I spoke with Dr. Farnsworth, who will consult. Observation Note Spoke With: SCARLETT WATT MD Physician Advisor Notified: JAMAAL LONGORIA,HEMANTH [address] Patient In: Non-ED OBS Care Area Rationale for Observation: My rational for observation is as follows [the patient needs ENT consult, serial hemoglobin and hematocrits, holding Xarelto, monitoring for bleeding]. Critical Care Note Critical Care Note Critical Care Time: 30-74 min
[2016-08-03] MEDS ORDERED: B COMPLEX1 EACH PO (08:46)
[2016-08-03] MEDS ORDERED: AMIODARONE HCL200 M1 PO (08:47)
[2016-08-03] MEDS ORDERED: COZAAR25 M1 PO (08:48)
[2016-08-03] MEDS ORDERED: PREDNISONE5 M1 PO (08:49)
--- NOTE | 2016-08-03 09:25 | NUR ---
DR COUCH TO BEDSIDE
--- NOTE | 2016-08-03 09:53 | NUR ---
PT'S NOSE CONTINUES TO DRIP BLOOD, DR COUCH AT BEDSIDE TO PACK L NOSTRIL, PT NOW HAS PACKING IN BILATERAL NOSTRILS.
--- NOTE | 2016-08-03 10:24 | NUR ---
LABS DRAWN AND SENT, PT RESTING QUIETLY, NOSE CONTINUING TO OOZE.
[2016-08-03 10:40] LABS: ABSOLUTE BASOPHIL COUNT 0 /CUMM (0.0-0.2); ABSOLUTE EOSINOPHIL COUNT 0.1 /CUMM (0.0-0.7); ABSOLUTE GRANULOCYTE CT 7.3 /CUMM (1.4-6.5); ABSOLUTE MONOCYTE COUNT 0.5 /CUMM (0.10-0.60); BASOPHIL % 0.4 % (0.0-2.0); EOSINOPHIL % 1.3 % (0-5); GRANULOCYTE % 82.1 % (42.2-75.2); HEMATOCRIT 30.4 % (42-52); MEAN CORPUSCULAR HGB 26.4 PG (27.0-31.0); MEAN CORPUSCULAR HGB CONC 32.4 G/DL (33.0-37.0); MEAN CORPUSCULAR VOLUME 81.5 FL (80.0-94.0); MEAN PLATELET VOLUME 6.9 FL (7.4-10.4); PLATELET COUNT 234 /CUMM (130-400); RBC DISTRIBUTION WIDTH 16.4 % (11.5-14.5); RED BLOOD CELL CT 3.73 /CUMM (4.70-6.10); WHITE BLOOD CELL COUNT 8.9 /CUMM (4.8-10.8)
[2016-08-03 10:52] LABS: PT 16.7 SEC (9.4-12.5)
--- NOTE | 2016-08-03 10:53 | NUR ---
BLEEDING APPEARS TO HAVE STOPPED, PT RESTING QUIETLY
--- NOTE | 2016-08-03 13:58 | NUR ---
PT CONTINUES TO REST QUIETLY, HEART HEALTHY TRAY ORDERED, NO REDS PER IZA
--- NOTE | 2016-08-03 14:37 | NUR ---
PT HAS BED ASSIGNMENT 178-1. RN NOTIFIED.
--- NOTE | 2016-08-03 15:34 | History & Physical ---
HEAVENLY CUEVAS MD 08/03/16 1533: General Information and HPI History of Present Illness: 76 year old man with an extensive cardiovascular history significant for congestive heart failure, atrial fibrillation on Xarelto, five reported cardiac stents last one apparently placed >3 yrs ago, CAD s/p PM/AICD seen for evaluation of a persistend bloody nose. Patient reports that since the beginning of the year he has been experiencing nose bleeds quite often that usually stop on their own with pressure. Despite this nosebleeds he has been maintained on Xarelto. He [facility] for [facility] of this whom reportedly "cauterized" his nose approximately "one month ago". Despite this he has had nose bleeds, reported three last one, one yesterday, and one this morning. He was instructed to report to the ED should his nosebleed last for more than one hour. Currently he admits to a mild headache and a productive cough of green Patient was recently hospitalied at [facility] from 07/15/16 - 07/18/16 for a COPD exacerbation and discharged to home on a prednisone taper; which reported caused him to have 'blurred vision' that he attributes to his sugars being high. Otherwise he denies any lightheadedness/dizziness, fever, chills, chest pain/ discomfort, palpitations, shortness of breath, nausea, vomiting, diarrhea, numbness/tingling, urinary frequency/urgency, constipation. 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, he admits to being independent with ADLs/IADLs Allergies/Medications Allergies: Coded Allergies: NO KNOWN ALLERGIES (07/12/15) Home Med list Albuterol Sulfate 2.5 MG/3 ML (0.083 %) VIAL.NEB 1 Vial INH/ASHLEY TID PRN wheezing Albuterol Sulfate (Ventolin Hfa) 18 GM HFA.AER.AD 2 PUF INH Q6P PRN SHORTNESS OF BREATH Allopurinol 100 MG TABLET 3 TAB PO DAILY GOUT (Reported) Amiodarone HCl 200 MG TABLET 1 TAB PO DAILY AFIB (Reported) Amlodipine Besylate (Norvasc) 5 MG TABLET 1 TAB PO DAILY HTN (Reported) Diltiazem HCl (Diltiazem 12HR ER) 120 MG CAP.ER.12H 1 CAP PO DAILY HEART ( Reported) Fluticasone/Vilanterol (Breo Ellipta 100-25 Mcg INH) 100 MCG-25 MCG/DOSE BLST.W.DEV 1 PUFF INH DAILY BREATHING PROBLEMS (Reported) Furosemide (Lasix) 80 MG TABLET 1 TAB PO DAILY Diuretic Labetalol HCl 200 MG TABLET 1 TAB PO BID BP (Reported) Losartan Potassium (Cozaar) 25 MG TABLET 0.5 TAB PO DAILY HEART (Reported) Metformin HCl 1,000 MG TABLET 1 TAB PO BID DM (Reported) Multivit-Min/FA/Lycopen/Lutein (Centrum Silver Tablet) 0.4 MG-300 MCG-250 MCG TABLET 1 TAB PO DAILY VITAMIN SUPPORT (Reported) Pravastatin Sodium 80 MG TABLET 1 TAB PO DAILY HLD (Reported) Prednisone 5 MG TABLET 1 TAB PO DAILY GOUT (Reported) Rivaroxaban (Xarelto) 15 MG TABLET 1 TAB PO 1700 atrial fibrillation Tamsulosin HCl (Flomax) 0.4 MG CAP.ER.24H 1 CAP PO DAILY PROSTATE (Reported) Tiotropium [place] (Spiriva) 18 MCG CAP.W.DEV 1 CAP INH DAILY COPD (Reported) Vitamin B Complex (B Complex) 1 EACH TABLET 1 TAB PO DAILY VITAMIN SUPPORT ( Reported) Past History Travel History Traveled to [place] past 21 day No Medical History Blood Transfusion Hx: No Neurological: NONE EENT: epistaxis, HEARING LOSS Cardiovascular: AFIB, CHF, hypertension, hyperlipidemia, STENTS x 5 LCW PACER/ DEBRILLATOR Respiratory: COPD, pneumonia Gastrointestinal: NONE Hepatic: NONE Renal: NONE Musculoskeletal: gout, osteoarthritis Psychiatric: NONE Endocrine: diabetes Blood Disorders: NONE 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 Relation not specified for: Fam hx-ischem heart disease Fam hx-ischem heart disease Psychosocial History Who Do You Live With? spouse Services at Home: None Primary Language: Hungarian Smoking Status: Former Smoker ETOH Use: denies use Illicit Drug Use: denies illicit drug use Functional Ability ADLs Independent: dressing, eating, toileting, bathing. Ambulation: independent IADLs Independent: shopping, housework, finances, food prep, telephone, transportation , medication admin. Review of Systems Review of Systems Constitutional: Reports: see HPI. Exam & Diagnostic Data Last 24 Hrs of Vital Signs/I&O Vital Signs Date Time Temp Pulse Resp B/P B/P Pulse O2 O2 Flow FiO2 Mean Ox Delivery Rate 08/03 1701 97.8 65 20 158/60 95 Room Air 08/03 1546 98.3 74 15 165/72 100 Room Air 08/03 1352 96.6 65 18 180/85 94 Room Air 08/03 1032 96.0 66 20 194/84 94 Room Air 08/03 0822 99 Room Air 08/03 0816 97.5 88 16 168/89 98 Room Air Intake & Output 08/03 1600 08/03 0800 08/03 0000 Intake Total 0 Output Total Balance 0 Intake, Oral 0 Patient 82.554 kg Weight Physical Exam General Appearance Alert, Oriented X3, Cooperative, No Acute Distress Skin No Rashes, No Breakdown, No Significant Lesion HEENT Atraumatic, PERRLA, EOMI, Mucous Membr. moist/pink, Nares packed bilaterally with tamponade devices without any evidence of persistent drainage, oropharynx clear without any evidence of blood Neck Supple, No JVD Cardiovascular Regular Rate, Normal S1, Normal S2, No Murmurs Lungs Clear to Auscultation, Normal Air Movement Abdomen Normal Bowel Sounds, Soft, No Tenderness, No Hepatospenomegaly, No Masses Neurological Normal Speech, Normal Tone, Cranial Nerves 3-12 NL Extremities No Clubbing, No Cyanosis, No Edema, Normal Pulses, No Tenderness/ Swelling Vascular Normal Pulses, Pulses Symmetrical Last 24 Hrs of Labs/[place]: Laboratory Tests 08/03/16 1021: Anion Gap 9, Estimated GFR 39 L, BUN/Creatinine Ratio 21.8, Glucose 110 H, Calcium 8.8, Total Bilirubin 0.4, AST 19, ALT 32, Alkaline Phosphatase 72, Total Protein 6.1 L, Albumin 3.4 L, Globulin 2.7, Albumin/Globulin Ratio 1.3, PT 16.7 H, INR 1.60 H, CBC w Diff NO MAN DIFF REQ, RBC 3.73 L, MCV 81.5, MCH 26.4 L, RDW 16.4 H, MPV 6.9 L, Gran % 82.1 H, Lymphocytes % 11.1 L, Monocytes % 5.1, Eosinophils % 1.3, Basophils % 0.4, Absolute Granulocytes 7.3 H, Absolute Lymphocytes 1.0 L, Absolute Monocytes 0.5, Absolute Eosinophils 0.1 , Absolute Basophils 0, PUBS MCHC 32.4 L Assessment/Plan Assessment: 76 year old man with an extensive cardiovascular history significant for congestive heart failure, atrial fibrillation on Xarelto, five reported cardiac stents last one apparently placed >3 yrs ago, CAD s/p PM/AICD seen for evaluation of a persistent bloody nose. #Epistaxis #Acute Blood Loss on Chronic Anemia #Atrial Fibrillation on Xarelto #CAD with 5 cardiac stents s/p Pacemaker/AICD #History of Congestive Heart Failure #Hypertension #Hyperlipidemia Patient admits to frequent nose bleeds since the begining of the year for which he was [facility]. He reportedly cauterized an area in his nose one month ago and still continues to bleed despite this. Patient was packed with nasal tamponade devices that failed to control the bleed. application consultant Dr. Farnsworth was contacted whom recommended no-urgent intervention. Hemostatis was eventually achieved. Patient placed under telemetry observation for further evaluation. -Telemetry Obs -Type & Cross -CBC Q12H -Transfuse hemoglobin to greater than 8.0 -Xarelto on hold -Amiodarone 200mg PO Daily -Cardizem 120mg PO Daily -Lasix 80mg PO Daily -Amlodipine 5mg PO Daily -Labetalol 200mg PO BID -Losartan 12.5mg PO Daily -Pravastatin 80mg PO Daily -ENT Consult, recommendations pending -Cardiology consult in AM to assess ongoing anticoagulation therapy, patient of Dr. Ramirez #History of COPD #Gout #Osteoarthritis #Diabetes Mellitus #BPH -TRC with Nebs PRN -Tylenol PRN for pain, AVOID NSAIDs -Novolog SSI -Accuchecks -Prednisone 5mg PO Daily -Flomax 0.4mg PO Daily DVT PPx- ALPS Diet-Heart Healthy Diet Code Status-FULL CODE As Ranked By This Provider Problem List: 1. Epistaxis, recurrent Core Measures/Miscellaneous Acute Coronary Syndrome ACS Diagnosis: No Cerebrovascular Accident CVA/TIA Diagnosis: No Congestive Heart Failure CHF Diagnosis: No VTE (View Protocol) VTE Risk Factors: Acute medical illness, Age > 40 [facility] prophylaxis d/t: No contraindications No VTE Pharm Prophylaxis d/t: Active bleeding VTE Diagnosis: No VTE Type: NONE VTE Confirmed by (Test): NONE Sepsis (View Protocol) Severe Sepsis Present: No Septic Shock Septic Shock Present: No Miscellaneous Documentation Attending Case Discussed With: SCARLETT WATT MD Primary Care Physician: SCARLETT WATT MD Patient sees these Specialists Dr. Ramirez (cardio) Dr. Jordan (cardio-[facility]) Dr. Shell Level of Patient Care: Telemetry (OBS) Consults Needed: 1 Consulting Specialty: Cardiology Consults Needed: 2 Consulting Specialty: Otorhinolaryngology Observation Initial Note - I have personally examined SONDRA CANO on 08/03/16 at 2019. The disposition of SONDRA CANO is uncertain at this time and before a determination can be made, he requires a period of observation for the following reasons: * Serial complete blood counts * ENT evaluation * Hemodynamic stabilization with possible nasal packing * Cardiology evaluation and risk stratificaiton for further anticoagulation CHRISTIAN HINOJOSA MD 08/03/162021: Resident Review Statement Resident Statement: examined this patient, discussed with record label internship Other Findings: a 76 yo M with PMH significant for atrial fibrillation on xarelto, hypertension, hyperlipidemia, coronary artery disease, history of multiple prior stents, implantation of pacemaker/defibrillator, COPD, and a history of being MRSA positive presents today with a history of recurrent epistaxis about 6 or 7 months now. Patient has been seen by ENT with and is status post cauterization of his left nostril bid epistaxis has continued and seems to have worsened. He developed a non-productive cough for the past 1 week but denies fever/chills, lethargy, abdominal pain, hematemesis, hemoptysis or bleeding per rectum. Both nostrils were packed in the ED and bleeding seems to have been abated. Problem List 1. Epistaxis on xarelto 2. HTN 3. Hx of CAD, HLD 4. Hx of COPD Plan Place on observation Hold xarelto for now Monitor H&H serially Type and cross and transfuse to keep H&H >8 ENT consult placed; will follow recommendations Consult cardiology to clarify how long xarelto should be held and possible alternatives Keep nasal cavities packed till evaluation by ENT Obtain a CXR to r/o aspiration Resume his impt home meds Repeat labs in am Heart healthy diet Pain pathway ordered FC Alps for DVT ppx Repeat labs in am Heart healthy diet Pain pathway ordered FC Alps for DVT ppx
--- NOTE | 2016-08-03 15:44 | NUR ---
REPORT CALLED TO JA HARGROVE
[2016-08-03 17:01] VITALS: BP 158/60
[2016-08-03 20:32] LABS: ABSOLUTE BASOPHIL COUNT 0 /CUMM (0.0-0.2); ABSOLUTE EOSINOPHIL COUNT 0.1 /CUMM (0.0-0.7); ABSOLUTE GRANULOCYTE CT 5.8 /CUMM (1.4-6.5); ABSOLUTE MONOCYTE COUNT 0.4 /CUMM (0.10-0.60); BASOPHIL % 0.5 % (0.0-2.0); EOSINOPHIL % 1.8 % (0-5); GRANULOCYTE % 78.3 % (42.2-75.2); HEMATOCRIT 27.6 % (42-52); MEAN CORPUSCULAR HGB 26.3 PG (27.0-31.0); MEAN CORPUSCULAR HGB CONC 32.4 G/DL (33.0-37.0); MEAN CORPUSCULAR VOLUME 81.2 FL (80.0-94.0); MEAN PLATELET VOLUME 7.3 FL (7.4-10.4); PLATELET COUNT 224 /CUMM (130-400); RBC DISTRIBUTION WIDTH 16.5 % (11.5-14.5); WHITE BLOOD CELL COUNT 7.4 /CUMM (4.8-10.8)
--- NOTE | 2016-08-03 20:54 | RADIOLOGY REPORT ---
EXAMINATION: XR CHEST CLINICAL INFORMATION: Assess for aspiration. Epistasis. COPD COMPARISON: Chest x-ray 07/17/2016 TECHNIQUE: 2 views of the chest were obtained. FINDINGS: Pacemaker leads in right atrium and right ventricle and coronary sinus. Heart size is normal. No pulmonary vascular congestion. There is vascular wall calcifications of aorta. Lungs are clear. No infiltrate or pleural effusion. No pneumothorax. Compared to prior chest x-ray no change IMPRESSION: No acute abnormality of chest.
--- NOTE | 2016-08-03 21:09 | PN- Att Addend ---
Attending Addendum Attending Brief Note 76-year-old male known to [facility] and myself comes in with recurrent epistaxis and some cough. In the ER right to stop the bleeding even got packings at the patient continued to lose. With his history was prudent to keep him on observation monitor his H&H monitor his heart rate on telemetry ANTICOAGULATION today on hold. Will ask ENT to check the patient. If stable in a.m. then we'll start disposition plans. Laboratory Tests 08/03 08/03 191 1021 Chemistry Sodium (137 - 145 mmol/L) 138 Potassium (3.5 - 5.1 mmol/L) 4.0 Chloride (98 - 107 mmol/L) 99 Carbon Dioxide (22 - 30 mmol/L) 30 Anion Gap (5 - 16) 9 BUN (9 - 20 mg/dL) 37 H Creatinine (0.7 - 1.2 mg/dL) 1.7 H Estimated GFR (>60 ml/min) 39 L BUN/Creatinine Ratio (7 - 25 %) 21.8 Glucose (65 - 99 mg/dL) 110 H Calcium (8.4 - 10.2 mg/dL) 8.8 Total Bilirubin (0.2 - 1.3 mg/dL) 0.4 AST (17 - 59 U/L) 19 ALT (21 - 72 U/L) 32 Alkaline Phosphatase (< 127 U/L) 72 Total Protein (6.3 - 8.2 g/dL) 6.1 L Albumin (3.5 - 5.0 g/dL) 3.4 L Globulin (1.9 - 4.2 gm/dL) 2.7 Albumin/Globulin Ratio (1.1 - 2.2 %) 1.3 Coagulation PT (9.4 - 12.5 SEC) 16.7 H INR (0.90 - 1.17) 1.60 H Hematology CBC w Diff NO MAN DIFF REQ NO MAN DIFF REQ WBC (4.8 - 10.8 /CUMM) 7.4 8.9 RBC (4.70 - 6.10 /CUMM) 3.40 L 3.73 L Hgb (14.0 - 18.0 G/DL) 8.9 L 9.8 L Hct (42 - 52 %) 27.6 L 30.4 L MCV (80.0 - 94.0 FL) 81.2 81.5 MCH (27.0 - 31.0 PG) 26.3 L 26.4 L RDW (11.5 - 14.5 %) 16.5 H 16.4 H Plt Count (130 - 400 /CUMM) 224 234 MPV (7.4 - 10.4 FL) 7.3 L 6.9 L Gran % (42.2 - 75.2 %) 78.3 H 82.1 H Lymphocytes % (20.5 - 51.1 %) 13.4 L 11.1 L Monocytes % (1.7 - 9.3 %) 6.0 5.1 Eosinophils % (0 - 5 %) 1.8 1.3 Basophils % (0.0 - 2.0 %) 0.5 0.4 Absolute Granulocytes (1.4 - 6.5 /CUMM) 5.8 7.3 H Absolute Lymphocytes (1.2 - 3.4 /CUMM) 1.0 L 1.0 L Absolute Monocytes (0.10 - 0.60 /CUMM) 0.4 0.5 Absolute Eosinophils (0.0 - 0.7 /CUMM) 0.1 0.1 Absolute Basophils (0.0 - 0.2 /CUMM) 0 0 PUBS MCHC (33.0 - 37.0 G/DL) 32.4 L 32.4 L
[2016-08-04 01:15] VITALS: BP 158/72
--- NOTE | 2016-08-04 05:43 | PN- Housestaff ---
Subjective Follow-up For: Problem List 1. Epistaxis on xarelto 2. HTN 3. Hx of CAD, HLD 4. Hx of COPD Complaints: Generalized body aches Tele-Events Since Last Visit: Sinus rhythm, rate of 60s to 70s Subjective: Patient says he didn't have at night, complained of generalized pain including headache, gum pain, pain in his eyes etc. he was given a dose of oral tramadol that he says did not help his pain at all. Review of Systems Constitutional: Reports: no symptoms. Objective Last 24 Hrs of Vital Signs/I&O Vital Signs Date Time Temp Pulse Resp B/P B/P Pulse O2 O2 Flow FiO2 Mean Ox Delivery Rate 08/04 0115 97.9 77 20 158/72 94 Room Air 08/03 2123 160/80 08/03 2122 73 160/80 08/03 1820 168/80 08/03 1820 168/80 08/03 1820 168/80 08/03 1701 97.8 65 20 158/60 95 Room Air 08/03 1546 98.3 74 15 165/72 100 Room Air 08/03 1352 96.6 65 18 180/85 94 Room Air 08/03 1032 96.0 66 20 194/84 94 Room Air 08/03 0822 99 Room Air 08/03 0816 97.5 88 16 168/89 98 Room Air Intake & Output 08/04 0800 08/04 0000 08/03 1600 Intake Total 240 0 Output Total Balance 240 0 Intake, Oral 240 0 Patient 182 lb 182 lb Weight Physical Exam General Appearance: Alert, Oriented X3, Cooperative, No Acute Distress Skin: No Significant Lesion HEENT: PERRLA, EOMI, nasal packing in both nostrils, dry mucous membranes Neck: Supple, No JVD Cardiovascular: Regular Rate, Normal S1, Normal S2 Lungs: Clear to Auscultation, Normal Air Movement Abdomen: Soft Extremities: No Edema, Normal Pulses Lines/Diet/Fluids Lines: peripheral lines Assessment/Plan Assessment: a 76 yo M with PMH significant for atrial fibrillation on xarelto, hypertension, hyperlipidemia, coronary artery disease, history of multiple prior stents, implantation of pacemaker/defibrillator, COPD, and a history of being MRSA positive presents today with a history of recurrent epistaxis about 6 or 7 months now. Patient has been seen by ENT with and is status post cauterization of his left nostril bid epistaxis has continued and seems to have worsened. He developed a non-productive cough for the past 1 week but denies fever/chills, lethargy, abdominal pain, hematemesis, hemoptysis or bleeding per rectum. Both nostrils were packed in the ED and bleeding seems to have been abated. Problem List 1. Epistaxis on xarelto 2. HTN 3. Hx of CAD, HLD 4. Hx of COPD Plan Continue on observation Continue to hold xarelto for now IVF hydration Will add IV dilaudid for severe pain Monitor H&H serially H&H slightly dropped last night; Please f/u H&H this am ENT consult placed; please follow recommendations Consult cardiology to clarify how long xarelto should be held and possible alternatives since pt keeps bleeding on xarelto Keep nasal cavities packed till evaluation by ENT CXR neg for aspiration Heart healthy diet Pain pathway ordered FC Alps for DVT ppx Problem List: 1. Epistaxis 2. Anemia Pain Ratin Pain Location: generalized Pain Goal: Remain pain free Pain Plan: Give IV dilaudid artificial tears for dry eyes Tomorrow's Labs & Rationales: CBC/BEP Consulting Request: Consulting Specialty: Otorhinolaryngology
[2016-08-04 08:09] LABS: ABSOLUTE BASOPHIL COUNT 0 /CUMM (0.0-0.2); ABSOLUTE EOSINOPHIL COUNT 0.1 /CUMM (0.0-0.7); ABSOLUTE LYMPH COUNT 1.1 /CUMM (1.2-3.4); ABSOLUTE MONOCYTE COUNT 0.6 /CUMM (0.10-0.60); BASOPHIL % 0.3 % (0.0-2.0); GRANULOCYTE % 83.6 % (42.2-75.2); MEAN CORPUSCULAR HGB 26.3 PG (27.0-31.0); MEAN CORPUSCULAR HGB CONC 32.4 G/DL (33.0-37.0); MEAN CORPUSCULAR VOLUME 81.2 FL (80.0-94.0); MEAN PLATELET VOLUME 7.4 FL (7.4-10.4); PLATELET COUNT 252 /CUMM (130-400); RBC DISTRIBUTION WIDTH 16.9 % (11.5-14.5); WHITE BLOOD CELL COUNT 10.7 /CUMM (4.8-10.8)
[2016-08-04 08:16] VITALS: BP 160/66
--- NOTE | 2016-08-04 08:37 | Event Note ---
Event Note Event Note: I spoke with the sustainable design consultant Dr. Farnsworth this morning regarding the management of patient's epistaxis. Her recommendations are; 1. To keep nasal packing for 5 days-Once discharged, he should follow-up with the outpatient ENT office on Saturday or to take out the nasal packs. The patient will be evaluated for nasal cauterization at that time. 2. Start Augmentin 875 mg twice a day for 5 days. 3. Apply ice to the nasal bridge if patient rebleeds with the nasal packs in place within this time. frame. 4. Continue to hold Xarelto. There is high likelihood that patient will rebleed once anticoagulation is restarted.
[2016-08-04 09:42] VITALS: BP 160/66
--- NOTE | 2016-08-04 11:54 | PN- Att Addend ---
See Addendum Attending Addendum Attending Brief Note Patient is having no further nasal bleed. He complains of feeling uncomfortable from the nasal packing. General Appearance: Alert, No Acute Distress Skin: Grossly normal HEENT: Nasal packing present Neck: Supple, No JVD Cardiovascular: Regular Rate, Normal S1, Normal S2, No Murmurs Lungs: Clear to Auscultation, Normal Air Movement Abdomen: Normal Bowel Sounds, Soft, No Tenderness Neurological: Normal Speech, Strength at 5/5 X4 Ext, Cranial Nerves 3-12 NL, Reflexes 2+ Extremities: No Clubbing, No Cyanosis, No Edema Vascular: Normal Pulses Assessment 76-year-old with history of atrial fibrillation with the pacemaker and AICD having recurrent nosebleeds. Nasal rockets placed in the ER yesterday and since bleeding has resolved. We will involve cardiology and hold xarelto until patient follows ENT as outpatient. At this point he appears stable for discharge on Augmentin pending follow-up with ENT as outpatient. Patient does have an appointment with his primary ENT in couple of days. Plan Continue Augmentin Outpatient follow-up with ENT Cardiology consult for holding Xarelto Continue other home medication If stable he may be discharged with follow-up with his primary ENT as outpatient. Current Medications Sig/Clare Start time Last Medication Dose Route Stop Time Status Admin Acetaminophen 650 MG Q6P PRN 08/03 1830 AC 08/03 PO 1847 Amiodarone HCl 200 MG DAILY 08/03 1628 AC 08/04 PO 0941 Amlodipine Besylate 5 MG DAILY 08/03 1629 AC 08/04 PO 0942 Amoxicillin/ 875 MG Q12 08/04 1000 AC Clavulanate Potassium PO Diltiazem HCl 120 MG DAILY 08/03 1629 AC 08/04 PO 0941 Furosemide 80 MG DAILY 08/03 1629 AC 08/04 PO 0941 Guaifenesin/ 10 ML Q6P PRN 08/04 0230 AC Dextromethorphan PO Hydromorphone HCl 1 MG Q4P PRN 08/04 1200 AC IV Hydromorphone HCl 1 MG ONCE ONE 08/04 0700 DC 08/04 IV 08/04 0701 0750 Insulin Aspart 0 TIDAC 08/03 1700 AC 08/03 SC 1819 Labetalol HCl 200 MG BID 08/03 2200 AC 08/04 PO 0942 Losartan Potassium 12.5 MG DAILY 08/03 1630 AC 08/04 PO 0941 Pravastatin Sodium 80 MG 1700 08/03 1700 AC 08/03 PO 1820 Prednisone 5 MG DAILY 08/03 1631 AC 08/04 PO 0942 Sodium Chloride 1,000 ML Q10H 08/04 0700 AC 08/04 IV 0745 Tamsulosin HCl 0.4 MG DAILY 08/03 1631 AC 08/04 PO 0941 Tiotropium [place] 1 PUF DAILY 08/03 1631 AC 08/04 INH 0942 Tramadol HCl 50 MG Q6 PRN 08/04 0800 AC PO Tramadol HCl 50 MG ONCE ONE 08/04 0515 DC 08/04 PO 08/04 0516 0519 Laboratory Tests 08/04 08/03 0630 1912 Chemistry Sodium (137 - 145 mmol/L) 137 Potassium (3.5 - 5.1 mmol/L) 3.7 Chloride (98 - 107 mmol/L) 96 L Carbon Dioxide (22 - 30 mmol/L) 30 Anion Gap (5 - 16) 10 BUN (9 - 20 mg/dL) 32 H Creatinine (0.7 - 1.2 mg/dL) 1.8 H Estimated GFR (>60 ml/min) 37 L BUN/Creatinine Ratio (7 - 25 %) 17.8 Hematology CBC w Diff NO MAN DIFF REQ NO MAN DIFF REQ WBC (4.8 - 10.8 /CUMM) 10.7 7.4 RBC (4.70 - 6.10 /CUMM) 3.70 L 3.40 L Hgb (14.0 - 18.0 G/DL) 9.7 L 8.9 L Hct (42 - 52 %) 30.0 L 27.6 L MCV (80.0 - 94.0 FL) 81.2 81.2 MCH (27.0 - 31.0 PG) 26.3 L 26.3 L RDW (11.5 - 14.5 %) 16.9 H 16.5 H Plt Count (130 - 400 /CUMM) 252 224 MPV (7.4 - 10.4 FL) 7.4 7.3 L Gran % (42.2 - 75.2 %) 83.6 H 78.3 H Lymphocytes % (20.5 - 51.1 %) 9.9 L 13.4 L Monocytes % (1.7 - 9.3 %) 5.2 6.0 Eosinophils % (0 - 5 %) 1.0 1.8 Basophils % (0.0 - 2.0 %) 0.3 0.5 Absolute Granulocytes (1.4 - 6.5 /CUMM) 9.0 H 5.8 Absolute Lymphocytes (1.2 - 3.4 /CUMM) 1.1 L 1.0 L Absolute Monocytes (0.10 - 0.60 /CUMM) 0.6 0.4 Absolute Eosinophils (0.0 - 0.7 /CUMM) 0.1 0.1 Absolute Basophils (0.0 - 0.2 /CUMM) 0 0 PUBS MCHC (33.0 - 37.0 G/DL) 32.4 L 32.4 L Vital Signs Date Time Temp Pulse Resp B/P B/P Pulse O2 O2 Flow FiO2 Mean Ox Delivery Rate 08/04 0942 70 160/66 08/04 0942 70 160/66 08/04 0941 70 160/66 08/04 0941 70 160/66 08/04 0941 70 160/66 08/04 0816 97.4 70 20 160/66 91 Room Air 08/04 0800 Room Air 08/04 0115 97.9 77 20 158/72 94 Room Air 08/03 2123 160/80 0616 2122 73 160/80 16 1820 168/80 08/03 1820 168/80 16 1820 168/80 08/03 1701 97.8 65 20 158/60 95 Room Air 08/03 1546 98.3 74 15 165/72 100 Room Air 16 1352 96.6 65 18 180/85 94 Room Air
--- NOTE | 2016-08-04 12:20 | Cons- Cardiology ---
General Information and HPI Consulting Request Date of Consult: 08/04/16 Requested By: SCARLETT WATT MD Reason for Consult: Atrial fibrillation, epistaxis History of Present Illness: The patient is a 72-year-old male who is followed by Dr. Ramirez with history of atrial fibrillation, hypertension, hyperlipidemia, COPD, pacemaker/ defibrillator who is admitted with epistaxis on Xarelto. He presented to the emergency department with epistaxis. Nasal packing was placed with control of the epistaxis. He has a history of recurrent epistaxes in the past which has been treated with cauterization. No chest pain. No shortness of breath. No diaphoresis. No palpitations. No lightheadedness or dizziness. No nausea or vomiting. Allergies/Medications Allergies: Coded Allergies: NO KNOWN ALLERGIES (07/12/15) Home Med List: Albuterol Sulfate 2.5 MG/3 ML (0.083 %) VIAL.NEB 1 Vial INH/ASHLEY TID PRN wheezing Albuterol Sulfate (Ventolin Hfa) 18 GM HFA.AER.AD 2 PUF INH Q6P PRN SHORTNESS OF BREATH Allopurinol 100 MG TABLET 3 TAB PO DAILY GOUT (Reported) Amiodarone HCl 200 MG TABLET 1 TAB PO DAILY AFIB (Reported) Amlodipine Besylate (Norvasc) 5 MG TABLET 1 TAB PO DAILY HTN (Reported) Diltiazem HCl (Diltiazem 12HR ER) 120 MG CAP.ER.12H 1 CAP PO DAILY HEART ( Reported) Fluticasone/Vilanterol (Breo Ellipta 100-25 Mcg INH) 100 MCG-25 MCG/DOSE BLST.W.DEV 1 PUFF INH DAILY BREATHING PROBLEMS (Reported) Furosemide (Lasix) 80 MG TABLET 1 TAB PO DAILY Diuretic Labetalol HCl 200 MG TABLET 1 TAB PO BID BP (Reported) Losartan Potassium (Cozaar) 25 MG TABLET 0.5 TAB PO DAILY HEART (Reported) Metformin HCl 1,000 MG TABLET 1 TAB PO BID DM (Reported) Multivit-Min/FA/Lycopen/Lutein (Centrum Silver Tablet) 0.4 MG-300 MCG-250 MCG TABLET 1 TAB PO DAILY VITAMIN SUPPORT (Reported) Pravastatin Sodium 80 MG TABLET 1 TAB PO DAILY HLD (Reported) Prednisone 5 MG TABLET 1 TAB PO DAILY GOUT (Reported) Rivaroxaban (Xarelto) 15 MG TABLET 1 TAB PO 1700 atrial fibrillation Tamsulosin HCl (Flomax) 0.4 MG CAP.ER.24H 1 CAP PO DAILY PROSTATE (Reported) Tiotropium [place] (Spiriva) 18 MCG CAP.W.DEV 1 CAP INH DAILY COPD (Reported) Vitamin B Complex (B Complex) 1 EACH TABLET 1 TAB PO DAILY VITAMIN SUPPORT ( Reported) Current Medications: Current Medications Sig/Clare Start time Last Medication Dose Route Stop Time Status Admin Acetaminophen 650 MG Q6P PRN 08/03 1830 AC 08/03 PO 1847 Amiodarone HCl 200 MG DAILY 08/03 1628 AC 08/04 PO 0941 Amlodipine Besylate 5 MG DAILY 08/03 1629 AC 08/04 PO 0942 Amoxicillin/ 875 MG Q12 08/04 1000 AC Clavulanate Potassium PO Diltiazem HCl 120 MG DAILY 08/03 1629 AC 08/04 PO 0941 Furosemide 80 MG DAILY 08/03 1629 AC 08/04 PO 0941 Guaifenesin/ 10 ML Q6P PRN 08/04 0230 AC Dextromethorphan PO Hydromorphone HCl 1 MG Q4P PRN 08/04 1200 AC IV Hydromorphone HCl 1 MG ONCE ONE 08/04 0700 DC 08/04 IV 08/04 0701 0750 Insulin Aspart 0 TIDAC 08/03 1700 AC 08/03 SC 1819 Labetalol HCl 200 MG BID 08/03 2200 AC 08/04 PO 0942 Losartan Potassium 12.5 MG DAILY 08/03 1630 AC 08/04 PO 0941 Pravastatin Sodium 80 MG 1700 08/03 1700 AC 08/03 PO 1820 Prednisone 5 MG DAILY 08/03 1631 AC 08/04 PO 0942 Sodium Chloride 1,000 ML Q10H 08/04 0700 AC 08/04 IV 0745 Tamsulosin HCl 0.4 MG DAILY 08/03 1631 AC 08/04 PO 0941 Tiotropium [place] 1 PUF DAILY 08/03 1631 AC 08/04 INH 0942 Tramadol HCl 50 MG Q6 PRN 08/04 0800 AC PO Tramadol HCl 50 MG ONCE ONE 08/04 0515 DC 08/04 PO 08/04 0516 0519 Review of Systems Review of Systems: No rash. No tremor. No melena. No diaphoresis. All other systems were reviewed, and were noted to be negative. Past History Travel History Traveled to [place] past 21 day No Medical History Blood Transfusion Hx: No Neurological: NONE EENT: epistaxis, HEARING LOSS Cardiovascular: AFIB, CHF, hypertension, hyperlipidemia, STENTS x 5 LCW PACER/ DEBRILLATOR Respiratory: COPD, pneumonia Gastrointestinal: NONE Hepatic: NONE Renal: NONE Musculoskeletal: gout, osteoarthritis Psychiatric: NONE Endocrine: diabetes Blood Disorders: NONE Cancer(s): NONE PARTY DIRECTOR/Reproductive: 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 Relation not specified for: Fam hx-ischem heart disease Fam hx-ischem heart disease Psychosocial History Who Do You Live With? spouse Services at Home: None Primary Language: Kinyarwanda Smoking Status: Former Smoker ETOH Use: denies use Illicit Drug Use: denies illicit drug use Functional Ability ADLs Independent: dressing, eating, toileting, bathing. Ambulation: independent IADLs Independent: shopping, housework, finances, food prep, telephone, transportation , medication admin. ECHO Results (as available) Report: CONCLUSIONS Mild concentric left ventricular hypertrophy. Left ventricular ejection fraction is estimated at 55-60 %. There is mild inferolateral hypokinesis. Other perez all contract well. Catheter/pacemaker wire in the right ventricular cavity. Catheter/pacemaker wire in the right atrial appendage. Mild to moderate left atrial dilatation. Mild to moderate thickening/calcification of the mitral valve leaflets. [id number] mitral regurgitation. Focal thickening of the aortic valve cusps. No aortic stenosis. Trace aortic regurgitation. Right ventricular systolic pressure estimated to be elevated at 40- 45 mmHg. The IVC is moderately dilated. Results are similar to the last echocardiogram of 12/02/2014, except that mild inferolateral hypokinesis of the left ventricle is noted on the current study. Exam & Diagnostic Data Vital Signs and I&O Vital Signs Date Time Temp Pulse Resp B/P B/P Pulse O2 O2 Flow FiO2 Mean Ox Delivery Rate 08/04 0942 70 160/66 08/04 0942 70 160/66 08/04 0941 70 160/66 08/04 0941 70 160/66 08/04 0941 70 160/66 08/04 0816 97.4 70 20 160/66 91 Room Air 08/04 0800 Room Air 08/04 0115 97.9 77 20 158/72 94 Room Air 06/16 2123 160/80 08/03 212 73 160/80 08/03 1820 168/80 08/03 1820 168/80 08/03 1820 168/80 08/03 1701 97.8 65 20 158/60 95 Room Air 08/03 1546 98.3 74 15 165/72 100 Room Air 08/03 1352 96.6 65 18 180/85 94 Room Air Intake & Output 08/04 0808/04 0000 08/03 0800 08/03 0000 Intake Total 200 240 0 Output Total Balance 200 240 0 Intake, Oral 200 240 0 Patient 182 lb 182 lb Weight Physical Exam: Gen: The patient is in no acute distress HEENT: Normal nose, ears, and oropharynx. Pupils equal bilaterally. Conjunctiva normal. Neck: Supple with no JVD, no masses, and no thyromegaly Lungs: Clear to auscultation with normal respiratory effort Heart: RRR, S1, S2, 1/6 systolic murmur. No peripheral edema, 2+ pulses in the lower extremities bilaterally Abdomen: Soft, nontender, no masses. No hepatomegaly. No splenomegaly Extremities: No clubbing or cyanosis. Normal muscle strength in the upper and lower extremities Skin: Normal skin turgor with no skin ulcers or lesions noted. Neuro: Cranial nerves intact. Sensation intact Psych: Alert and oriented 3 with appropriate affect Labs/[place] Results: Laboratory Tests 08/04 08/03 0630 1912 Chemistry Sodium (137 - 145 mmol/L) 137 Potassium (3.5 - 5.1 mmol/L) 3.7 Chloride (98 - 107 mmol/L) 96 L Carbon Dioxide (22 - 30 mmol/L) 30 Anion Gap (5 - 16) 10 BUN (9 - 20 mg/dL) 32 H Creatinine (0.7 - 1.2 mg/dL) 1.8 H Estimated GFR (>60 ml/min) 37 L BUN/Creatinine Ratio (7 - 25 %) 17.8 Hematology CBC w Diff NO MAN DIFF REQ NO MAN DIFF REQ WBC (4.8 - 10.8 /CUMM) 10.7 7.4 RBC (4.70 - 6.10 /CUMM) 3.70 L 3.40 L Hgb (14.0 - 18.0 G/DL) 9.7 L 8.9 L Hct (42 - 52 %) 30.0 L 27.6 L MCV (80.0 - 94.0 FL) 81.2 81.2 MCH (27.0 - 31.0 PG) 26.3 L 26.3 L RDW (11.5 - 14.5 %) 16.9 H 16.5 H Plt Count (130 - 400 /CUMM) 252 224 MPV (7.4 - 10.4 FL) 7.4 7.3 L Gran % (42.2 - 75.2 %) 83.6 H 78.3 H Lymphocytes % (20.5 - 51.1 %) 9.9 L 13.4 L Monocytes % (1.7 - 9.3 %) 5.2 6.0 Eosinophils % (0 - 5 %) 1.0 1.8 Basophils % (0.0 - 2.0 %) 0.3 0.5 Absolute Granulocytes (1.4 - 6.5 /CUMM) 9.0 H 5.8 Absolute Lymphocytes (1.2 - 3.4 /CUMM) 1.1 L 1.0 L Absolute Monocytes (0.10 - 0.60 /CUMM) 0.6 0.4 Absolute Eosinophils (0.0 - 0.7 /CUMM) 0.1 0.1 Absolute Basophils (0.0 - 0.2 /CUMM) 0 0 PUBS MCHC (33.0 - 37.0 G/DL) 32.4 L 32.4 L 08/03 1021 Chemistry Sodium (137 - 145 mmol/L) 138 Potassium (3.5 - 5.1 mmol/L) 4.0 Chloride (98 - 107 mmol/L) 99 Carbon Dioxide (22 - 30 mmol/L) 30 Anion Gap (5 - 16) 9 BUN (9 - 20 mg/dL) 37 H Creatinine (0.7 - 1.2 mg/dL) 1.7 H Estimated GFR (>60 ml/min) 39 L BUN/Creatinine Ratio (7 - 25 %) 21.8 Glucose (65 - 99 mg/dL) 110 H Calcium (8.4 - 10.2 mg/dL) 8.8 Total Bilirubin (0.2 - 1.3 mg/dL) 0.4 AST (17 - 59 U/L) 19 ALT (21 - 72 U/L) 32 Alkaline Phosphatase (< 127 U/L) 72 Total Protein (6.3 - 8.2 g/dL) 6.1 L Albumin (3.5 - 5.0 g/dL) 3.4 L Globulin (1.9 - 4.2 gm/dL) 2.7 Albumin/Globulin Ratio (1.1 - 2.2 %) 1.3 Coagulation PT (9.4 - 12.5 SEC) 16.7 H INR (0.90 - 1.17) 1.60 H Hematology CBC w Diff NO MAN DIFF REQ WBC (4.8 - 10.8 /CUMM) 8.9 RBC (4.70 - 6.10 /CUMM) 3.73 L Hgb (14.0 - 18.0 G/DL) 9.8 L Hct (42 - 52 %) 30.4 L MCV (80.0 - 94.0 FL) 81.5 MCH (27.0 - 31.0 PG) 26.4 L RDW (11.5 - 14.5 %) 16.4 H Plt Count (130 - 400 /CUMM) 234 MPV (7.4 - 10.4 FL) 6.9 L Gran % (42.2 - 75.2 %) 82.1 H Lymphocytes % (20.5 - 51.1 %) 11.1 L Monocytes % (1.7 - 9.3 %) 5.1 Eosinophils % (0 - 5 %) 1.3 Basophils % (0.0 - 2.0 %) 0.4 Absolute Granulocytes (1.4 - 6.5 /CUMM) 7.3 H Absolute Lymphocytes (1.2 - 3.4 /CUMM) 1.0 L Absolute Monocytes (0.10 - 0.60 /CUMM) 0.5 Absolute Eosinophils (0.0 - 0.7 /CUMM) 0.1 Absolute Basophils (0.0 - 0.2 /CUMM) 0 PUBS MCHC (33.0 - 37.0 G/DL) 32.4 L Diagnostic Data EKG Results EKG tracing is independently reviewed, and reveals atrial sensed ventricular paced rhythm at a rate of 70 CXR Results Chest x-ray: Negative Other Results Echocardiogram 07/17/16: Mild to moderate concentric left ventricular hypertrophy. Left ventricular systolic function is mildly decreased with estimated ejection fraction 55-60%. There is mild postero-lateral hypokinesis seen. Catheter/pacemaker wire in the right atrial cavity. Moderate left atrial dilatation. There is moderate thickening of the anterior mitral leaflet and mild thickening of the posterior leaflet. [id number] mitral regurgitation. Focal thickening of the aortic valve cusps. No aortic stenosis. Right ventricular systolic pressure estimated to be elevated at 50- 55 mmHg. Moderate pulmonary hypertension. The inferior vena cava is mildly dilated. Assessment/Plan Assessment/Plan Assessment: 1. Paroxysmal atrial fibrillation 2. COPD 3. Anticoagulated on Xarelto 4. Pacemaker/ICD in situ 5. Coronary artery disease Plan: * Packing in place for epistaxis * Xarelto on hold for epistaxis. * Restart Xarelto as soon as possible after packing is removed if okay with ENT * Follow up with Dr. Ramirez in one week. Consult Acknowledgment - Thank you for your consult request.
[2016-08-04] MEDS ORDERED: AMOX-CLAV 875-1 EACH PO (13:08)
--- NOTE | 2016-08-04 13:11 | Patient Discharge Instructions ---
Discharge Instructions General Discharge Information You were seen/treated for: Epistaxis You had these procedures: Nasal packing Special Instructions: 1. Please follow-up with your primary care provider within 1 or 2 weeks after discharge 2. Please follow-up with your ENT doctor after discharge for removal of nasal packing and if there is need for any cauterization 3. We are holding your xARELTO because of nosebleed. Restart Xarelto as soon as possible after packing is removed if okay with ENT. 4. Please follow-up with your geospatial specialist, Dr. Ramirez after discharge Diet Continue normal diet: Yes Activity Full Activity/No Limits: Yes Acute Coronary Syndrome Inclusion Criteria At DC or during hospital stay patient has or had the following: ACS DIAGNOSIS No Discharge Core Measures Meds if any: Prescribed or Continued at Discharge Meds if any: NOT Prescribed or Continued at Discharge Congestive Heart Failure Inclusion Criteria At DC or during hospital stay patient has or had the following: CHF DIAGNOSIS No Discharge Core Measures Meds if any: Prescribed or Continued at Discharge Meds if any: NOT Prescribed or Continued at Discharge Cerebrovascular accident Inclusion Criteria At DC or during hospital stay patient has or had the following: CVA/TIA Diagnosis No Discharge Core Measures Meds if any: Prescribed or Continued at Discharge Meds if any: NOT Prescribed or Continued at Discharge Venous thromboembolism Inclusion Criteria VTE Diagnosis No VTE Type NONE VTE Confirmed by (Test) NONE Discharge Core Measures - Per Current guidelines, there needs to be overlap - treatment for the first 5 days of Warfarin therapy. - If discharged on Warfarin prior to 5 days of - overlap therapy, the patient will need to be - assessed for post discharge needs including - *Post discharge parental anticoagulation - *Warfarin and/or parental anticoagulation education - *Follow up date to check INR post discharge At least 5 days overlap therapy as Inpatient No Meds if any: Prescribed or Continued at Discharge Note: Overlap Therapy is Warfarin and Anticoagulant Meds if any: NOT Prescribed or Continued at Discharge
[2016-08-04] MEDS ORDERED: TRAMADOL HCL50 M1 PO (13:49)
== END 2016-08-04 15:15 ==
LOC: ERH 08:14 → 1NO 13:58 → ERHI 13:58 → ENRESERV 14:32 → ENTRNSPT 15:48 → 1NO 16:09 → CMPTRNSPT 18:00 → ENPENDDIS 08-04 13:13 → 1NO 08-04 15:15
PROVIDERS: Emergency Medicine; Internal Medicine Interventional Cardiology; ADMIT Internal Medicine
DX: R04.0 Epistaxis (principal); I48.0 Paroxysmal atrial fibrillation; Z79.01 Long term (current) use of anticoagulants; I25.10 Atherosclerotic heart disease of native coronary artery without angina pectoris; I13.0 Hypertensive heart and chronic kidney disease with heart failure and stage 1 through stage 4 chronic kidney disease, or unspecified chronic kidney disease; I50.9 Heart failure, unspecified; Z87.891 Personal history of nicotine dependence; D62 Acute posthemorrhagic anemia; E13.22 Other specified diabetes mellitus with diabetic chronic kidney disease; N18.9 Chronic kidney disease, unspecified; Z79.4 Long term (current) use of insulin; E78.5 Hyperlipidemia, unspecified; Z95.0 Presence of cardiac pacemaker; J44.9 Chronic obstructive pulmonary disease, unspecified; I95.9 Hypotension, unspecified; M19.90 Unspecified osteoarthritis, unspecified site; D72.829 Elevated white blood cell count, unspecified
CPT/HCPCS: 6020; 36415; 82436; 93005; 93010; 96361; 96374; 96376; G0378; J7512

== ENCOUNTER 2016-08-06 15:24 | Inpatient (IN) | payer OTHER ==
[~2016-08-06] VITALS: Ht 175.3 cm; Wt 85.7 kg
[~2016-08-06 15:24] MED LIST changes: +AMOX-CLAV 875-1 EACH PO; +B COMPLEX1 EACH PO; +COZAAR25 M1 PO; +TRAMADOL HCL50 M1 PO
--- NOTE | 2016-08-06 15:43 | NUR ---
PT TO ED FROM PCP'S OFFICE FOR LOW BP. PT WAS SEEN BY PCP THIS AM FOR REMOVAL OF NASAL PACKING PLACED IN ED ON SATURDAY. PT REPORTS NOSEBLEEDS ON AND OFF X6 MONTHS. TAKES XARELTO. HAS BEEN TAKING FOR 6 YEARS. 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 DNEIES CP/SOB. +LIGHTHEADED. AWAKE/ALERT WITH EASY WOB. BANDAGE OVER NOSE. NOT ACTIVELY BLEEDING. PER BP 100/44 AT PCP.
--- NOTE | 2016-08-06 16:03 | NUR ---
APPRECIATE TRIAGE NOTE. TESSY LEHMAN TO BEDSIDE FOR EVAL.
--- NOTE | 2016-08-06 16:04 | ED GENERAL ADULT ---
History of Present Illness General Chief Complaint: General Adult Stated Complaint: "PER PT CP,NOSE BLEED,BP READINGS CONCERNED" Source: patient, old records Exam Limitations: no limitations Vital Signs & Intake/Output Vital Signs & Intake/Output Vital Signs Date Time Temp Pulse Resp B/P B/P Pulse O2 O2 Flow FiO2 Mean Ox Delivery Rate 08/06 2108 73 123/60 08/06 2054 98.9 72 18 133/63 94 Room Air Room Air 08/06 1656 98.5 70 18 118/57 94 Room Air Room Air 08/06 1538 98.6 73 20 100/57 92 Room Air Allergies Coded Allergies: NO KNOWN ALLERGIES (07/12/15) Reconcile Medications Albuterol Sulfate 2.5 MG/3 ML (0.083 %) VIAL.NEB 1 Vial INH/ASHLEY TID PRN wheezing Albuterol Sulfate (Ventolin Hfa) 18 GM HFA.AER.AD 2 PUF INH Q6P PRN SHORTNESS OF BREATH Allopurinol 100 MG TABLET 1 TAB PO DAILY GOUT (Reported) Amiodarone HCl 200 MG TABLET 1 TAB PO DAILY AFIB (Reported) Amlodipine Besylate (Norvasc) 5 MG TABLET 1 TAB PO DAILY HTN (Reported) Amoxicillin/Clavulanate Potass (Amox-Clav 875-125 MG Tablet) 875 MG-125 MG TABLET 1 TAB PO Q12 EPISTAXIS AND NASAL PACKING Diltiazem HCl (Diltiazem 12HR ER) 120 MG CAP.ER.12H 1 CAP PO DAILY HEART ( Reported) Fluticasone/Vilanterol (Breo Ellipta 100-25 Mcg INH) 100 MCG-25 MCG/DOSE BLST.W.DEV 1 PUFF INH DAILY BREATHING PROBLEMS (Reported) Furosemide (Lasix) 80 MG TABLET 1 TAB PO DAILY Diuretic Labetalol HCl 200 MG TABLET 1 TAB PO BID BP (Reported) Losartan Potassium (Cozaar) 25 MG TABLET 0.5 TAB PO DAILY HEART (Reported) Magnesium Oxide 400 MG TABLET 1 TAB PO DAILY SUPPLEMENT (Reported) Metformin HCl 1,000 MG TABLET 1 TAB PO BID DM (Reported) Multivit-Min/FA/Lycopen/Lutein (Centrum Silver Tablet) 0.4 MG-300 MCG-250 MCG TABLET 1 TAB PO DAILY VITAMIN SUPPORT (Reported) Pravastatin Sodium 80 MG TABLET 1 TAB PO DAILY HLD (Reported) Prednisone 5 MG TABLET 1 TAB PO DAILY GOUT (Reported) Tamsulosin HCl (Flomax) 0.4 MG CAP.ER.24H 1 CAP PO DAILY PROSTATE (Reported) Tiotropium Jay (Spiriva) 18 MCG CAP.W.DEV 1 CAP INH DAILY COPD (Reported) Tramadol HCl 50 MG TABLET 1 TAB PO Q12P PRN headcahe and nasal congestion Vitamin B Complex (B Complex) 1 EACH TABLET 1 TAB PO DAILY VITAMIN SUPPORT ( Reported) Triage Note: PT TO ED FROM PCP'S OFFICE FOR LOW BP. PT WAS SEEN BY PCP THIS AM FOR REMOVAL OF NASAL PACKING PLACED IN ED ON SATURDAY. PT REPORTS NOSEBLEEDS ON AND OFF X6 MONTHS. TAKES XARELTO. HAS BEEN TAKING FOR 6 YEARS. 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 DNEIES CP/SOB. +LIGHTHEADED. AWAKE/ALERT WITH EASY WOB. BANDAGE OVER NOSE. NOT ACTIVELY BLEEDING. PER BP 100/44 AT PCP. Triage Nurses Notes Reviewed? yes Onset: Gradual Duration: worse persistent since (2 days) Timing: recent history Injury Environment: home Severity: moderate Severity Numbers: 7 Modifying Factors: Worsens With: movement. HPI: Patient is a 76-year-old male with history of atrial fibrillation, CHF, hypertension, epistaxis presenting to the emergency department with chief complaint of generalized malaise, fatigue, intermittent shortness of breath with exertion, intermittent chest pain and dizziness with positional changes that been getting worse over the past 2 days. Patient reports that he was seen and evaluated here 3 days ago for nosebleeds. He was admitted overnight for observation and discharged home. He saw the ear nose and throat doctor today who pulled out his left nasal packing and at the office his blood pressure was on the lower sides of the ENT wanted the patient to come in for evaluation of low blood pressure. Patient denies any continued bleeds. No trauma to the nose. Denies any visual changes. Denies any current chest pain. Dizziness is worse with positional changes. Per the patient was getting out of the car to go to the ENT and felt very dizzy that he needs to sit down. No syncopal episodes. Denies any palpitations. Slight decrease in by mouth intake over the past couple days. Denies any abdominal pain. No urinary symptoms. Denies any diarrhea. No fevers or chills. No change in color of stool. (DOMINIKKOBE UREÑA) Past History Travel History Traveled to [place] past 21 day No Medical History Any Pertinent Medical History? see below for history Neurological: NONE EENT: epistaxis, HEARING LOSS Cardiovascular: AFIB, CHF, hypertension, hyperlipidemia, STENTS x 5 LCW PACER/ DEBRILLATOR Respiratory: COPD, pneumonia Gastrointestinal: NONE Hepatic: NONE Renal: NONE Musculoskeletal: gout, osteoarthritis Psychiatric: NONE Endocrine: diabetes Blood Disorders: NONE Cancer(s): NONE MANAGER PRACTICE/Reproductive: NONE History of MRSA: Yes History of VRE: No History of CDIFF: No Surgical History Surgical History: AICD/PACER, BYPASS Psychosocial History Who do you live with Spouse Services at Home None What is your primary language [place]alander Tobacco Use: Refused to answer Family History Family History, If Any: FATHER BROTHER (CAD,HTN). Relation not specified for: Fam hx-ischem heart disease Fam hx-ischem heart disease Hx Contributory? No (KOBE QUARLES) Review of Systems Review of Systems Constitutional: Reports: malaise, weakness. Comments Review of systems: See HPI, All other systems negative. Constitutional, no chills fever or weight loss HEENT: No visual changes no sore throat no congestion Cardiovascular: No palpitation , orthopnea or ankle swelling Skin, no jaundice no rashes Respiratory: No cough sputum or hemoptysis GI: No nausea no vomiting : No dysuria No hematuria Muscle skeletal: no back pain, no neck pain, Neurologic: No numbness no confusion no triana Psych: No stress anxiety or depression,. Heme/endocrine: No bruising no bleeding no polyuria or polydipsia Immunology: No splenectomy or history of AIDS (KOBE QUARLES) Physical Exam Physical Exam General Appearance: well developed/nourished, no apparent distress, alert, awake , comfortable Comments: Well-developed well-nourished person in no acute distress HEENT: extraocular motion intact, no nystagmus. Pupils equally round and reactive to light and accommodation. Nasal packing in place in the right naris, dried blood clots noted in the left there, no septal hematoma appreciated on visualization. Slight pallor noted to palpable conjunctiva bilaterally. External auditory canal and Tympanic membranes clear. Pharynx normal. No swelling or edema. No sinus pain to palpation over the maxillary and frontal sinuses. Neck: Supple, no lymphadenopathy, normal range of motion without pain or tenderness Back: Nontender Cardiovascular: Regular rate and rhythms no murmurs rubs or gallops, normal JVP Respiratory: Chest nontender. No respiratory distress.scattered rhonchi to auscultation bilaterally that clears with coughing. Abdomen: Soft, nontender nondistended, no appreciable organomegaly. Normal bowel sounds. No ascites Extremity: No edema, no calf tenderness to palpation, normal and equal pulses. Neuro: Alert oriented x3, motor sensory normal, cranial nerves II through XII grossly intact. Cerebellar testing is unremarkable. Skin: No appreciable rash on exposed skin, skin is warm and dry. Psych: Mood and affect is normal, memory and judgment is normal. Core Measures ACS in differential dx? Yes CVA/TIA Diagnosis: No Severe Sepsis Present: No Septic Shock Present: No (DOMINIK STILL,KOBE) Progress Differential Diagnoses I considered the following diagnoses in my evaluation of the patient: Symptomatic anemia, ACS, orthostatic hypotension, dehydration, electrolyte abnormality, pneumonia, community-acquired infection, UTI, acute blood loss Plan of Care: Orders Procedure Date/time Status Consistent Carbohydrate 1 08/07 B Active CBC WITHOUT DIFFERENTIAL 08/07 06 Active BASIC ELECTROLYTES PLUS BUN&CR 08/07 06 Active CBC WITHOUT DIFFERENTIAL 08/07 0000 Active Heart Healthy Diet 08/06 D Complete LACTIC ACID 08/066 Active FingerStick- Glucose 08/06 2133 Active LOWER RESPIRATORY CULTURE 08/06 2118 Active Pathway - chart 08/07 2111 Active Pathway - chart 08/07 2031 Active Add-on Test (ER Only) 08/06 2004 Active Misc Message 08/06 1952 Active ED Holding Orders 08/06 1952 Active Vital Signs 08/06 1952 Active URINE LYTES, SPOT 08/06 1952 Complete Code Status 08/06 1952 Active ED- NURSING MISC 08/06 1948 Active PROTHROMBIN TIME 08/06 194 Complete CULTURE,URINE 08/06 194 Active BLOOD CULTURE 08/06 194 Active BLOOD PRODUCT PICKUP 08/[address] in observation 08/06 1840 Active Patient Data 08/06 1829 Active LEUKOCYTE POOR (PACKED CELLS) 08/06 1739 Active URINALYSIS 08/06 1721 Complete Intake & Output 08/06 1654 Active Telemetry/Supervisor Evaporator 08/06 1612 Active MISTAKE 08/06 1604 Active TROPONIN LEVEL 08/06 1604 Complete COMPREHENSIVE METABOLIC PANEL 08/06 1604 Complete CBC WITHOUT DIFFERENTIAL 08/06 1604 Complete TYPE & SCREEN (NOT X-MATCH) 08/06 1604 Active EKG 08/06 1527 Active TRC EVALUATION (GEN) 08/06 UNK Active House Staff 08/06 UNK Active VTE Mechanical Prophylaxis 08/06 UNK Active Vital Signs 08/06 UNK Active Current Medications Sig/Clare Start time Last Medication Dose Stop Time Status Admin Pravastatin Sodium 80 MG 1700 08/07 1700 UNVr (Pravachol) Amiodarone HCl 200 MG DAILY 08/07 1000 UNVr (Cordarone) Diltiazem HCl 120 MG DAILY 08/07 1000 UNVr (Cardizem SR) Fluticasone 2 PUF DAILY 08/07 1000 UNVr Propionate (Flovent) Prednisone 5 MG DAILY 08/07 1000 UNVr Insulin Aspart 0 TIDAC 08/07 0800 UNVr (NovoLOG) Amoxicillin/ 875 MG BID 08/06 2200 UNVr Clavulanate Potassium (Augmentin) Metformin HCl 1,000 MG BID 08/06 2199 CANr (Glucophage) Sodium Chloride 1,000 ML Q13H 08/06 2144 UNVr (Normal Saline 0.9%) Tramadol HCl 50 MG Q12P PRN 08/06 2129 UNVr (Ultram) Tamsulosin HCl 0.4 MG DAILY 08/06 2117 UNVr (Flomax) Albuterol Sulfate 2 PUF Q6P PRN 08/06 2114 UNVr (Ventolin) Laboratory Tests 08/06/162053: Urine Color YEL, Urine Clarity CLEAR, Urine pH 6.0, Ur Specific [place] 1.025, Urine Protein 100 H, Urine Ketones NEG, Urine Nitrite NEG, Urine Bilirubin NEG, Urine Urobilinogen 0.2, Ur Leukocyte Esterase NEG, Ur Microscopic SEDIMENT EXAMINED, Urine RBC RARE, Urine WBC 1-3 H, Ur Epithelial Cells MOD H, Hyaline Casts MOD H, Granular Casts FEW H, Urine Hemoglobin NEG, Urine Glucose NEG 08/06/162053: Ur Random Creatinine 115.8, Ur Random Sodium 23 L, Ur Random Potassium 35.9, Fraction Sodium Excret 0.4 08/06/16 1644: Anion Gap 13, Estimated GFR 24 L, BUN/Creatinine Ratio 20.0, Glucose 137 H, Calcium 8.3 L, Total Bilirubin 0.5, AST 21, ALT 33, Alkaline Phosphatase 61, Troponin I 0.01, Total Protein 5.9 L, Albumin 3.1 L, Globulin 2.8, Albumin/ Globulin Ratio 1.1, PT 12.6 H, INR 1.20 H, CBC w Diff NO MAN DIFF REQ, RBC 3.31 L, MCV 81.3, MCH 26.3 L, RDW 16.9 H, MPV 6.8 L, Gran % 91.3 H, Lymphocytes % 4.2 L, Monocytes % 3.9, Eosinophils % 0.1, Basophils % 0.5, Absolute Granulocytes 15.5 H, Absolute Lymphocytes 0.7 L, Absolute Monocytes 0.7 H, Absolute Eosinophils 0, Absolute Basophils 0.1, PUBS MCHC 32.3 L Microbiology 08/06 2118 LOWER RESP: Respiratory Culture - ORD 08/06 2118 LOWER RESP: Gram Stain - ORD 08/06 2053 URINE ROUT: Urine Culture - RECD 08/07 2039 BLOOD: Blood Culture - RECD 08/06 2029 BLOOD: Blood Culture - RECD Diagnostic Imaging: Viewed by Me: Radiology Read. Discussed w/RAD: Radiology Read. CXR Impression: no acute abnormality, no infiltrates, cardiomegaly is baseline Initial ED EKG: atrial sensed ventricular paced rhythm, 71 bpm Prior EKG: unchanged Comments: On arrival patient is neurologically intact, slight pallor appreciated to visualization of the elbow conjunctiva bilaterally. Patient has history of epistaxis, we will assess CBC, CMP, type and screen ordered in case patient will need transfusion. We will assess orthostatics. IV established, patient will be on the spinner continuous here in the emergency department. Chest x-ray ordered to rule out any tip of hospital-acquired infection. 08/06/2016 6:31:34 PM patient family updated on all lab work results and imaging study findings. Consent obtained to give patient blood. Patient had a drop in H&H over the past 2 days, symptomatic anemia patient will receive IV blood products. Patient admitted for symptomatic anemia and acute on chronic renal failure. Admitted as observation as patient was just recently admitted for observation 3 days [address] Discussed with Dr. Delatorre, he is agreeable for this admission. Discussed with Dr. Sarmiento and she agrees with plan. Patient resting comfortably. (KOBE QUARLES) Departure Departure Time of Disposition: 1721 Disposition: STILL A PATIENT Condition: Stable Clinical Impression Primary Impression: Symptomatic anemia Secondary Impressions: Acute renal failure Qualifiers: Acute renal failure type: unspecified Qualified Code: N17.9 - Acute kidney failure, unspecified Leukocytosis Qualifiers: Leukocytosis type: unspecified Qualified Code: D72.829 - Elevated white blood cell count, unspecified Orthostatic hypotension Referrals: SCARLETT DELATORRE MD (PCP/Family) Departure Forms: Customer Survey General Discharge Information Observation Note Spoke With: SCARLETT DELATORRE MD Physician Advisor Notified: HEMANTH HINTON MD Place Patient In: Non-ED OBS Care Area Rationale for Observation: My rational for observation is as follows .blood transfusion, repeat h and H , repeat cmp, pending urinalysis. trend wbc count. afebrile at this time. repeat orthostatics. d/c at this time is medically harmful, pt high risk for syncopal episode. (KOBE QUARLES) PA/LEAN SIX SIGMA BLACK BELT Co-Sign Statement Statement: ED Attending supervision documentation- [X] I saw and evaluated the patient. I have also reviewed all the pertinent lab results and diagnostic results. I agree with the findings and the plan of care as documented in the PA's/LEAN SIX SIGMA BLACK BELT's documentation. [X] I have reviewed the ED Record and agree with the PA's/LEAN SIX SIGMA BLACK BELT's documentation. [] Additions or exceptions (if any) to the PAs/LEAN SIX SIGMA BLACK BELT's note and plan are summarized below: [] (AMINA LONGORIA,REBECCA) Critical Care Note Critical Care Note Critical Care Time: 30-74 min (KOBE QUARLES)
[2016-08-06] MEDS ORDERED: MAGNESIUM OXID400 M1 PO (16:13)
--- NOTE | 2016-08-06 16:44 | RADIOLOGY REPORT ---
EXAMINATION: XR CHEST CLINICAL INFORMATION: Fatigue and congestion. COMPARISON: 08/03/2016. TECHNIQUE: 2 views of the chest were obtained. FINDINGS: Heart size is upper limits of normal to mildly enlarged containing 3 stable appearing pacer leads with a left-sided generator. Atherosclerotic calcification of the aortic arch is again noted. The lungs and pleural spaces appear clear without evidence of congestion, consolidation, or significant appearing effusion or atelectasis. There is no evidence of pneumothorax or pulmonary edema. Included osseous structures appear largely unremarkable. IMPRESSION: No evidence of an acute intrathoracic process.
[2016-08-06 16:57] LABS: ABSOLUTE BASOPHIL COUNT 0.1 /CUMM (0.0-0.2); ABSOLUTE EOSINOPHIL COUNT 0 /CUMM (0.0-0.7); ABSOLUTE GRANULOCYTE CT 15.5 /CUMM (1.4-6.5); ABSOLUTE LYMPH COUNT 0.7 /CUMM (1.2-3.4); ABSOLUTE MONOCYTE COUNT 0.7 /CUMM (0.10-0.60); BASOPHIL % 0.5 % (0.0-2.0); EOSINOPHIL % 0.1 % (0-5); HEMATOCRIT 26.9 % (42-52); MEAN CORPUSCULAR HGB 26.3 PG (27.0-31.0); MEAN CORPUSCULAR HGB CONC 32.3 G/DL (33.0-37.0); MEAN CORPUSCULAR VOLUME 81.3 FL (80.0-94.0); MEAN PLATELET VOLUME 6.8 FL (7.4-10.4); PLATELET COUNT 236 /CUMM (130-400); RBC DISTRIBUTION WIDTH 16.9 % (11.5-14.5); RED BLOOD CELL CT 3.31 /CUMM (4.70-6.10)
[2016-08-06 17:00] LABS: GRANULOCYTE % 91.3 % (42.2-75.2)
--- NOTE | 2016-08-06 19:14 | NUR ---
PER MIK AT BLOOD BANK BLOOD IS READY.
--- NOTE | 2016-08-06 19:27 | PN- Att Addend ---
Attending Addendum Attending Brief Note 76 Year old male saw ENT today still oozing through nose had treatment but noted his BP was low sent to the ER a little orthostatic and H/H dropped more will keep on observation serial H/H vital signs transfuse. Laboratory Tests 08/06 1644 Chemistry Sodium (137 - 145 mmol/L) 132 L Potassium (3.5 - 5.1 mmol/L) 4.3 Chloride (98 - 107 mmol/L) 94 L Carbon Dioxide (22 - 30 mmol/L) 25 Anion Gap (5 - 16) 13 BUN (9 - 20 mg/dL) 52 H Creatinine (0.7 - 1.2 mg/dL) 2.6 H Estimated GFR (>60 ml/min) 24 L BUN/Creatinine Ratio (7 - 25 %) 20.0 Glucose (65 - 99 mg/dL) 137 H Calcium (8.4 - 10.2 mg/dL) 8.3 L Total Bilirubin (0.2 - 1.3 mg/dL) 0.5 AST (17 - 59 U/L) 21 ALT (21 - 72 U/L) 33 Alkaline Phosphatase (< 127 U/L) 61 Troponin I (<0.11 ng/ml) 0.01 Total Protein (6.3 - 8.2 g/dL) 5.9 L Albumin (3.5 - 5.0 g/dL) 3.1 L Globulin (1.9 - 4.2 gm/dL) 2.8 Albumin/Globulin Ratio (1.1 - 2.2 %) 1.1 Hematology CBC w Diff NO MAN DIFF REQ WBC (4.8 - 10.8 /CUMM) 17.0 H RBC (4.70 - 6.10 /CUMM) 3.31 L Hgb (14.0 - 18.0 G/DL) 8.7 L Hct (42 - 52 %) 26.9 L MCV (80.0 - 94.0 FL) 81.3 MCH (27.0 - 31.0 PG) 26.3 L RDW (11.5 - 14.5 %) 16.9 H Plt Count (130 - 400 /CUMM) 236 MPV (7.4 - 10.4 FL) 6.8 L Gran % (42.2 - 75.2 %) 91.3 H Lymphocytes % (20.5 - 51.1 %) 4.2 L Monocytes % (1.7 - 9.3 %) 3.9 Eosinophils % (0 - 5 %) 0.1 Basophils % (0.0 - 2.0 %) 0.5 Absolute Granulocytes (1.4 - 6.5 /CUMM) 15.5 H Absolute Lymphocytes (1.2 - 3.4 /CUMM) 0.7 L Absolute Monocytes (0.10 - 0.60 /CUMM) 0.7 H Absolute Eosinophils (0.0 - 0.7 /CUMM) 0 Absolute Basophils (0.0 - 0.2 /CUMM) 0.1 PUBS MCHC (33.0 - 37.0 G/DL) 32.3 L
--- NOTE | 2016-08-06 20:18 | NUR ---
PT GOING TO ROOM 188-1
[2016-08-06 20:19] LABS: PT 12.6 SEC (9.4-12.5)
--- NOTE | 2016-08-06 20:55 | NUR ---
HOUSE STAFF AT BEDSIDE FOR EVAL. PRBC RUNNING AT 100ML/HR, PT TOLERATING WELL.
--- NOTE | 2016-08-06 21:17 | History & Physical ---
MIKE COCHRAN 08/06/162115: General Information and HPI MD Statement: I have seen and personally examined SONDRA CALDWELL and documented this H&P. The patient is a 76 year old M who presented with a patient stated chief complaint of nosebleeds, chest discomfort Source of Information: patient, old records Exam Limitations: no limitations History of Present Illness: Mr Caldwell is a 76-year-old man who is known to be in his usual state of health until a week ago. He has a past medical history of recurrent nosebleeds/ epistaxis (one year ago), atrial fibrillation ( on DOAC), coronary artery disease (history of multiple stents), implantation of pacemaker/defibrillator, COPD. He was sent to from his ENT surgeon's office, when found to be hypotensive this afternoon. As per the patient, he was recently treated at for epistaxis with nasal packing. After hemostasis, he was discharged with the recommendation to see his ENT for further management. After 4 days of nasal packing in place, it was removed by his ENT surgeon this a.m. At that time, he was found to be hypotensive. He also complained of dizziness, with no loss of consciousness. Reported several episodes of dizziness in the last 1 week, especially after getting up from a seated position. Reported decreased fluid intake, and decrease in urine output. Reported cough 1 week, productive with light green sputum. No shortness of breath, orthopnea, PND. Reported chest discomfort, at the time of presentation to the ED, that lasted for a few minutes. No tachycardia, fever was noted. As per the patient, his anticoagulation was held for the last 1 week in view of his current bleeding symptoms. No abdominal pain, dysuria, melena/bleeding per rectum noted. Sees Dr. Saul Ramirez, Nhan Shell MD, Dr. Jordan regularly. Allergies/Medications Allergies: Coded Allergies: NO KNOWN ALLERGIES (07/12/15) Home Med list Albuterol Sulfate 2.5 MG/3 ML (0.083 %) VIAL.NEB 1 Vial INH/ASHLEY TID PRN wheezing Albuterol Sulfate (Ventolin Hfa) 18 GM HFA.AER.AD 2 PUF INH Q6P PRN SHORTNESS OF BREATH Allopurinol 100 MG TABLET 1 TAB PO DAILY GOUT (Reported) Amiodarone HCl 200 MG TABLET 1 TAB PO DAILY AFIB (Reported) Amlodipine Besylate (Norvasc) 5 MG TABLET 1 TAB PO DAILY HTN (Reported) Amoxicillin/Clavulanate Potass (Amox-Clav 875-125 MG Tablet) 875 MG-125 MG TABLET 1 TAB PO Q12 EPISTAXIS AND NASAL PACKING Diltiazem HCl (Diltiazem 12HR ER) 120 MG CAP.ER.12H 1 CAP PO DAILY HEART ( Reported) Fluticasone/Vilanterol (Breo Ellipta 100-25 Mcg INH) 100 MCG-25 MCG/DOSE BLST.W.DEV 1 PUFF INH DAILY BREATHING PROBLEMS (Reported) Furosemide (Lasix) 80 MG TABLET 1 TAB PO DAILY Diuretic Labetalol HCl 200 MG TABLET 1 TAB PO BID BP (Reported) Losartan Potassium (Cozaar) 25 MG TABLET 0.5 TAB PO DAILY HEART (Reported) Magnesium Oxide 400 MG TABLET 1 TAB PO DAILY SUPPLEMENT (Reported) Metformin HCl 1,000 MG TABLET 1 TAB PO BID DM (Reported) Multivit-Min/FA/Lycopen/Lutein (Centrum Silver Tablet) 0.4 MG-300 MCG-250 MCG TABLET 1 TAB PO DAILY VITAMIN SUPPORT (Reported) Pravastatin Sodium 80 MG TABLET 1 TAB PO DAILY HLD (Reported) Prednisone 5 MG TABLET 1 TAB PO DAILY GOUT (Reported) Tamsulosin HCl (Flomax) 0.4 MG CAP.ER.24H 1 CAP PO DAILY PROSTATE (Reported) Tiotropium [place] (Spiriva) 18 MCG CAP.W.DEV 1 CAP INH DAILY COPD (Reported) Tramadol HCl 50 MG TABLET 1 TAB PO Q12P PRN headcahe and nasal congestion Vitamin B Complex (B Complex) 1 EACH TABLET 1 TAB PO DAILY VITAMIN SUPPORT ( Reported) Observation Initial Note - I have personally examined SONDRA CALDWELL on 08/06/16 The disposition of SONDRA CALDWELL is uncertain at this time and before a determination can be made, he requires a period of observation for the following reasons [] 1. Symptoms of acute blood loss 2. Rule out any infection 3. 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 Relation not specified for: Fam hx-ischem heart disease Fam hx-ischem heart disease Psychosocial History Who Do You Live With? spouse Services at Home: None Primary Language: Armenian Functional Ability ADLs Independent: dressing, eating, toileting, bathing. Ambulation: independent IADLs Independent: shopping, housework, finances, food prep, telephone, transportation , medication admin. Review of Systems Review of Systems Constitutional: Reports: see HPI. EENTM: Denies: blurred vision, double vision, visual changes. Cardiovascular: Reports: chest pain. Denies: orthopena, palpitations, peripheral edema, syncope. Respiratory: Reports: cough, sputum production. Denies: hemoptysis, orthopnea, short of breath. GI: Denies: abdominal pain, diarrhea, melena, bloody stool, changes in stool. Genitourinary: Denies: dysuria, hematuria. Musculoskeletal: Denies: back pain. Skin: Denies: change in skin color. Neurological/Psychological: Denies: ataxia, headache. Hematologic/Endocrine: Denies: bruising. Exam & Diagnostic Data Last 24 Hrs of Vital Signs/I&O Vital Signs Date Time Temp Pulse Resp B/P B/P Pulse O2 O2 Flow FiO2 Mean Ox Delivery Rate 08/06 2210 98.7 69 14 144/46 93 Room Air 08/06 2108 73 123/60 08/06 2054 98.9 72 18 133/63 94 Room Air Room Air 08/06 1656 98.5 70 18 118/57 94 Room Air Room Air 08/06 1538 98.6 73 20 100/57 92 Room Air Intake & Output 08/06 1600 08/06 0800 08/06 0000 Intake Total Output Total Balance Patient 189 lb Weight Weight Reported by Patient Measurement Method Physical Exam General Appearance Alert, Oriented X3, Cooperative, No Acute Distress Skin No Rashes, No Breakdown Skin Temp/Moisture Exam: Warm/Dry HEENT Atraumatic, PERRLA, EOMI, Mucous Membr. moist/pink, blood found on posterior pharyngeal wall Bleeding from the nose, packing removed Neck Supple, No JVD, No thryomegaly Lymphatic Axillary nl, Cervical nl Cardiovascular Regular Rate, Normal S1, Normal S2, No Murmurs Lungs Clear to Auscultation, decreased air entry bilaterally No rhonchi or rales Abdomen Normal Bowel Sounds, Soft, No Tenderness Neurological Normal Speech, Strength at 5/5 X4 Ext, Normal Tone, Sensation Intact, Cranial Nerves 3-12 NL, Reflexes 2+ Extremities No Clubbing, No Cyanosis, No Edema, Normal Pulses Vascular Pulses Symmetrical Assessment/Plan Assessment: He is an older man with a past history of atrial fibrillation on direct oral anticoagulant, recurrent epistaxis (recently treated in house with nasal packing dehydration. At the time of admission, vitals indicated temperature 98.6, pulse rate 73, respiration 20, blood pressure 100/57 (improved to 133/63). Lab findings indicated leukocytosis WBC 17.0 (an acute change 10.7 on 08/04) with granulocytosis 91.3, hemoglobin 8.7 (baseline 9.7 on 7)-likely acute blood loss anemia from epistaxis, platelets 236, sodium 132 (slightly low with a decreased urine sodium, and normal Fena), normal potassium, abnormal kidney function BUN 52, elevated serum creatinine 2.6 (baseline 1.8), normal liver function. Radiological findings-chest x-ray did not reveal any signs of consolidation. Orthostatic vitals positive in the ED. EKG revealed atrial sensed ventricular paced rhythm with no ST-T wave changes. Echocardiogram 2016-LVEF 55-60%, with mild posterior lateral hypokinesis, elevated right ventricular pressure upto 55 mm( ? COPD ). Urinalysis revealed elevated urine protein, multiple hyaline casts and granular casts likely from diabetic nephropathy. Urine cultures and blood cultures are pending at this time. Differential diagnosis: #1 anemia-acute blood loss #2 dehydration #3 acute on chronic kidney disease #4 possible staph infection Below is the problem list and plan: #1 hypotension-likely secondary to anemia and or dehydration. Recheck orthostatic vitals. Intravenous fluids to be administered, and recheck vitals every 4. Fall precautions. Noted to have hypovolemic hyponatremia. #2 anemia-likely acute blood loss. Anticoagulation on hold at this time. Transfuse to keep hemoglobin above 8.0. Consult ENT in a.m. for further planning on cautery versus conservative management. #3 atrial fibrillation-continue amiodarone and Cardizem. Anticoagulation on hold at this time, and reassess if the patient would benefit from other anticoagulants. Continue to monitor the patient on telemetry. Recheck troponin. #4 leukocytosis with granulocytosis-likely an infection or secondary to hemoconcentration. Check lactic acid. Since the patient had nasal packing staph infection is on the differential, however low. Recheck CBCs in the a.m. Follow blood cultures, urine cultures to rule out any infectious source. #5 productive cough-continue Augmentin, which was started as an outpatient. Obtain lower respiratory cultures. Continue TRC for COPD. If the symptoms do not improve, may check with Dr. Shell. Patient continues to be on low-dose prednisone, which could be continued for COPD. #6 acute on chronic kidney- disease likely secondary to dehydration. Recheck basic electrolyte panel with BUN and creatinine in the a.m, after fluid resuscitation. #7 diabetes and CHF-last HbA1c 06/2016 was elevated. Oral hypoglycemics and ARB are held at this time. Also Lasix is being held at this time. Restart furosemide and ARB after kidney function is normalized. #5 DVT prophylaxis-mechanical at this time. As Ranked By This Provider Problem List: 1. Leukocytosis Qualifiers Leukocytosis type: unspecified Qualified Code: D72.829 - Elevated white blood cell count, unspecified 2. Acute renal failure Qualifiers Acute renal failure type: unspecified Qualified Code: N17.9 - Acute kidney failure, unspecified 3. Orthostatic hypotension Core Measures/Miscellaneous Acute Coronary Syndrome ACS Diagnosis: No Cerebrovascular Accident CVA/TIA Diagnosis: No Congestive Heart Failure CHF Diagnosis: No VTE (View Protocol) VTE Risk Factors: Acute medical illness, Age > 40 [facility] prophylaxis d/t: No contraindications No VTE Pharm Prophylaxis d/t: No contraindications VTE Diagnosis: No VTE Type: NONE VTE Confirmed by (Test): NONE Sepsis (View Protocol) Severe Sepsis Present: No Septic Shock Septic Shock Present: No Miscellaneous Documentation Attending Case Discussed With: SCARLETT WATT MD Primary Care Physician: SCARLETT WATT MD Patient sees these Specialists Dr. Mike Ramirez Level of Patient Care: Telemetry Consults Needed: 1 Consulting Specialty: Cardiology Consults Needed: 2 Consulting Specialty: Otorhinolaryngology GT GIL 08/06/162119: Resident Review Statement Resident Statement: discussed with environmental intern, agreed with environmental intern, reviewed EMR data (avail), discussed with nursing Other Findings: Patient is 76 year old male with PMH as above was sent from Dr. Garcia's office (ENT physcian) after the patient was seen for nasal bleed. Patient has been having recurrent nasal bleed since February and he was cauterized last month but the bleeding restarted since 2 weeks. Last week patient bled on and . He came to on Saturday, was admitted for obs, rhinorockets were placed b/l and patient was discharged on Saturday. Patient had the nasal packing removed on 08/06/16 at 1.30 pm at ENT's office. Patient felt dizzy and lightheaded when he walked out of the car to see Dr. Garcia therefore, after removal of packing, he was sent to for closer monitoring of his blood pressure. IN ER he was orthostatic positive with pressures as below, he was seen by Dr. Key and transfused one unit of blood. Post nasal packing, patient was also advised to take augmentin daily for infection prophylaxis that he has been complient with. Patient has been complaining of cough and grennish phleum since past week. His eliquis was held on Thursday 08/03. Physical exam: HEENT; Nasal packing has been removed and patient had external bandage on the nose, bandage is covered with seroanginous material. Some blood is also seen on posterior pharynx. Lungs: B/l ronchi and distant breath sounds. Heart: S1, S2, NSR Abdominal exam: no tenderness, normal bowel sounds. EXT: no b/l lower ext edema BP lying 115/66 BP sitting 100/57 BP standing 86/54. Vitals and labs as above CXR- clear for any opacifiction. Plan Will admit the patient to telemetry floor Will repeat CBC post transfusion and CBC in am to monitor Hb and leukocytosis Will continue Augmentin for prophylaxis Patient has FIORDALIZA on CKD, he is encouraged oral intake of fluids, after transfusion, will strat him on maintanance fluids @ 75cc/hr Will continue his amiodarone, Cardizem for paroxysmal atrial fibrillation Will hold his metformin, start him on SS insulin with fingersticks WIll continue his albuterol inhailer and fluticasone for COPD. Will start TRC nebs as needed. Will continue 5 mg of prednisone for arthritis. Will continue to hold eliquis and request for Cardiology consult (Dr. Ramirez) Will request ENT consult in am to have them on board DVT ppx ALPS Patient is on diabetic diet and Full code Case discussed with Dr. Key
[2016-08-06 22:10] VITALS: BP 144/46
[2016-08-07 01:26] VITALS: BP 122/56
[2016-08-07 01:35] LABS: ABSOLUTE BASOPHIL COUNT 0 /CUMM (0.0-0.2); ABSOLUTE EOSINOPHIL COUNT 0.1 /CUMM (0.0-0.7); ABSOLUTE GRANULOCYTE CT 11.6 /CUMM (1.4-6.5); ABSOLUTE LYMPH COUNT 1.1 /CUMM (1.2-3.4); ABSOLUTE MONOCYTE COUNT 0.7 /CUMM (0.10-0.60); BASOPHIL % 0 % (0.0-2.0); EOSINOPHIL % 0.9 % (0-5); GRANULOCYTE % 85.6 % (42.2-75.2); HEMATOCRIT 27.4 % (42-52); MEAN CORPUSCULAR HGB 26.1 PG (27.0-31.0); MEAN CORPUSCULAR HGB CONC 32.1 G/DL (33.0-37.0); MEAN CORPUSCULAR VOLUME 81.4 FL (80.0-94.0); MEAN PLATELET VOLUME 7.1 FL (7.4-10.4); PLATELET COUNT 235 /CUMM (130-400); RBC DISTRIBUTION WIDTH 16.6 % (11.5-14.5); RED BLOOD CELL CT 3.36 /CUMM (4.70-6.10); WHITE BLOOD CELL COUNT 13.6 /CUMM (4.8-10.8)
[2016-08-07 08:22] VITALS: BP 120/62
--- NOTE | 2016-08-07 10:04 | PN- Att Addend ---
Attending Addendum Attending Brief Note Patient states is feeling better amount vital signs are stable patient got a transfusion. The bandage on his nose was changed recently so far is dry. Was seen by ENT this morning. Anicteric the bruising home and use Afrin. Will check with cardiology regarding the [place] anticoagulation. 24 TOTALS 08/07 0000 08/06 0000 Intake Total Output Total 200 Balance -200 Output, Urine 200 Patient 189 lb Weight Weight Reported by Patient Measurement Method Current Medications Sig/Clare Start time Last Medication Dose Route Stop Time Status Admin Albuterol Sulfate 2 PUF Q6P PRN 08/06 211 AC INH Amiodarone HCl 200 MG DAILY 08/07 1000 AC 08/07 PO 0913 Amoxicillin/ 875 MG BID 08/060 AC 08/07 Clavulanate Potassium PO 08/10 220 0913 Budesonide/ 2 PUF BID 08/07 1000 AC 08/07 Formoterol Fumarate INH 0914 Diltiazem HCl 120 MG DAILY 08/07 1000 AC 08/07 PO 0913 Insulin Aspart 0 TIDAC 08/07 0800 AC SC Metformin HCl 1,000 MG BID 08/06 2200 CAN PO Pravastatin Sodium 80 MG 1700 08/07 1700 AC PO Prednisone 5 MG DAILY 08/07 1000 AC 08/07 PO 0913 Sodium Chloride 1,000 ML Q13H 08/06 2145 AC 08/07 IV 0133 Tamsulosin HCl 0.4 MG DAILY 08/06 2118 AC 08/07 PO 0913 Tramadol HCl 50 MG Q12P PRN 08/06 2130 AC PO Laboratory Tests 08/07/16 0100: Lactic Acid 0.8, CBC w Diff MAN DIFF ORDERED, RBC 3.36 L, MCV 81.4, MCH 26.1 L , RDW 16.6 H, MPV 7.1 L, Gran % 85.6 H, Lymphocytes % 8.4 L, Monocytes % 5.1 , Eosinophils % 0.9, Basophils % 0 L, Absolute Granulocytes 11.6 H, Absolute Lymphocytes 1.1 L, Absolute Monocytes 0.7 H, Absolute Eosinophils 0.1, Absolute Basophils 0, Platelet Estimate ADEQUATE, Polychromasia 1+, Poikilocytosis 1+, Basophilic Stippling 1+, Ovalocytes 1+, PUBS MCHC 32.1 L 08/06/162053: Urine Color YEL, Urine Clarity CLEAR, Urine pH 6.0, Ur Specific [place] 1.025, Urine Protein 100 H, Urine Ketones NEG, Urine Nitrite NEG, Urine Bilirubin NEG, Urine Urobilinogen 0.2, Ur Leukocyte Esterase NEG, Ur Microscopic SEDIMENT EXAMINED, Urine RBC RARE, Urine WBC 1-3 H, Ur Epithelial Cells MOD H, Hyaline Casts MOD H, Granular Casts FEW H, Urine Hemoglobin NEG, Urine Glucose NEG 08/06/162053: Ur Random Creatinine 115.8, Ur Random Sodium 23 L, Ur Random Potassium 35.9, Fraction Sodium Excret 0.4 08/06/16 164: Anion Gap 13, Estimated GFR 24 L, BUN/Creatinine Ratio 20.0, Glucose 137 H, Calcium 8.3 L, Total Bilirubin 0.5, AST 21, ALT 33, Alkaline Phosphatase 61, Troponin I 0.01, Total Protein 5.9 L, Albumin 3.1 L, Globulin 2.8, Albumin/ Globulin Ratio 1.1, PT 12.6 H, INR 1.20 H, CBC w Diff NO MAN DIFF REQ, RBC 3.31 L, MCV 81.3, MCH 26.3 L, RDW 16.9 H, MPV 6.8 L, Gran % 91.3 H, Lymphocytes % 4.2 L, Monocytes % 3.9, Eosinophils % 0.1, Basophils % 0.5, Absolute Granulocytes 15.5 H, Absolute Lymphocytes 0.7 L, Absolute Monocytes 0.7 H, Absolute Eosinophils 0, Absolute Basophils 0.1, PUBS MCHC 32.3 L Microbiology Date/Time Procedure - Status Source Growth 08/06 2118 Respiratory Culture - COLB LOWER RESP 08/06 2118 Gram Stain - COLB LOWER RESP 08/06 2053 Urine Culture - RES URINE ROUT 08/07 2039 Blood Culture - RECD BLOOD 08/06 2029 Blood Culture - RECD BLOOD
--- NOTE | 2016-08-07 10:30 | PN-Observation ---
Observation Note Observation Note _ I have personally examined SONDRA CALDWELL. him disposition is uncertain at this time. Before a determination can be made, he requires continued observation for the following reasons. 1. Symptomatic anemia 2. Mild epistaxis 3. Orthostatic hypotension Assessment/Plan Assessment: Mr Caldwell is a 76-year-old man who is known to be in his usual state of health until a week ago. He has a past medical history of recurrent nosebleeds/ epistaxis (one year ago), atrial fibrillation on Xarelto, coronary artery disease (history of multiple stents), implantation of pacemaker/defibrillator, COPD. He is admitted on telemetry floor for: 1. Symptomatic anemia status post 2 units of blood transfusion 2. Mild oozing from left nares after removing nasal packing by ENT yesterday 3. Orthostatic hypotension. Stable 4. History of A. fib. Xarelto on hold PLAN * Monitor H&H * Watch for active bleeding through the nose * Spoke with Dr. Miladys chandra, ENT this morning over the phone and she recommended Afrin nasal spray 3 puffs twice a day * Advised patient to avoid blowing his nose * Cardio consult * Anticipated discharge tomorrow with ENT follow-up in afternoon with Dr. Hook in her office * Would call ENT if patient starts bleeding actively * Continue holding xarelto * Continue Augmentin * Continue rest of home medications Problem List: 1. Epistaxis DVT/Prophylaxis: pharmacological Consulting Request: Consulting Specialty: Cardiology Discharge Plan Discharge Disposition: home Stable for Discharge? No Anticipated Discharge (Day): tomorrow Subjective Review of Systems Constitutional: Reports: see HPI. Objective Last 24 Hrs of Vital Signs/I&O Vital Signs Date Time Temp Pulse Resp B/P B/P Pulse O2 O2 Flow FiO2 Mean Ox Delivery Rate 08/08 0907 93 130/70 08/08 0907 93 130/70 08/08 0840 93 Room Air Room Air 08/08 0827 97.9 93 18 130/70 90 Room Air 08/08 0800 90 Room Air 08/08 0000 Room Air 08/07 2300 98.1 84 16 128/68 95 Room Air 08/07 1939 95 Room Air 08/07 1723 98.0 88 20 124/68 93 Room Air Intake & Output 08/08 1600 08/08 0800 08/08 0000 Intake Total 250 1085 Output Total Balance 250 1085 Intake, IV 0 75 Intake, Oral 250 1010 Number 0 0 Bowel Movements Physical Exam General Appearance: Alert, Oriented X3, Cooperative, No Acute Distress
--- NOTE | 2016-08-07 11:51 | Cons- Cardiology ---
General Information and HPI Consulting Request Date of Consult: 08/07/16 Requested By: SCARLETT WATT MD Reason for Consult: Atrial fibrillation History of Present Illness: The patient is a 76-year-old male who is followed by 4 history of atrial fibrillation, hypertension, COPD, pacemaker/defibrillator. He was previously admitted for epistaxis, and his Xarelto was held. He has prior history of epistaxis in the past which was treated with cauterization. He was sent to the hospital from his ENT physician's office when he was found to be hypotensive. His nasal packing was recently removed. He reports several episodes of dizziness in past week, especially with getting up from a seated position. He notes decreased urine output. He had a cough for the past week productive of light green sputum. No chest pain. No shortness of breath. No palpitations. No diaphoresis. No syncope. Allergies/Medications Allergies: Coded Allergies: NO KNOWN ALLERGIES (07/12/15) Home Med List: Albuterol Sulfate 2.5 MG/3 ML (0.083 %) VIAL.NEB 1 Vial INH/ASHLEY TID PRN wheezing Albuterol Sulfate (Ventolin Hfa) 18 GM HFA.AER.AD 2 PUF INH Q6P PRN SHORTNESS OF BREATH Allopurinol 100 MG TABLET 1 TAB PO DAILY GOUT (Reported) Amiodarone HCl 200 MG TABLET 1 TAB PO DAILY AFIB (Reported) Amlodipine Besylate (Norvasc) 5 MG TABLET 1 TAB PO DAILY HTN (Reported) Amoxicillin/Clavulanate Potass (Amox-Clav 875-125 MG Tablet) 875 MG-125 MG TABLET 1 TAB PO Q12 EPISTAXIS AND NASAL PACKING Diltiazem HCl (Diltiazem 12HR ER) 120 MG CAP.ER.12H 1 CAP PO DAILY HEART ( Reported) Fluticasone/Vilanterol (Breo Ellipta 100-25 Mcg INH) 100 MCG-25 MCG/DOSE BLST.W.DEV 1 PUFF INH DAILY BREATHING PROBLEMS (Reported) Furosemide (Lasix) 80 MG TABLET 1 TAB PO DAILY Diuretic Labetalol HCl 200 MG TABLET 1 TAB PO BID BP (Reported) Losartan Potassium (Cozaar) 25 MG TABLET 0.5 TAB PO DAILY HEART (Reported) Magnesium Oxide 400 MG TABLET 1 TAB PO DAILY SUPPLEMENT (Reported) Metformin HCl 1,000 MG TABLET 1 TAB PO BID DM (Reported) Multivit-Min/FA/Lycopen/Lutein (Centrum Silver Tablet) 0.4 MG-300 MCG-250 MCG TABLET 1 TAB PO DAILY VITAMIN SUPPORT (Reported) Pravastatin Sodium 80 MG TABLET 1 TAB PO DAILY HLD (Reported) Prednisone 5 MG TABLET 1 TAB PO DAILY GOUT (Reported) Tamsulosin HCl (Flomax) 0.4 MG CAP.ER.24H 1 CAP PO DAILY PROSTATE (Reported) Tiotropium [place] (Spiriva) 18 MCG CAP.W.DEV 1 CAP INH DAILY COPD (Reported) Tramadol HCl 50 MG TABLET 1 TAB PO Q12P PRN headcahe and nasal congestion Vitamin B Complex (B Complex) 1 EACH TABLET 1 TAB PO DAILY VITAMIN SUPPORT ( Reported) Current Medications: Current Medications Sig/Clare Start time Last Medication Dose Route Stop Time Status Admin Albuterol Sulfate 3 ML TID 08/07 1057 AC 08/07 INH 1058 Albuterol Sulfate 2 PUF Q6P PRN 08/06 2115 AC INH Amiodarone HCl 200 MG DAILY 08/07 1000 AC 08/07 PO 0913 Amoxicillin/ 875 MG BID 08/06 2200 AC 08/07 Clavulanate Potassium PO 08/10 2201 0913 Budesonide/ 2 PUF BID 08/07 1000 AC 08/07 Formoterol Fumarate INH 0914 Diltiazem HCl 120 MG DAILY 08/07 1000 AC 08/07 PO 0913 Insulin Aspart 0 TIDAC 08/07 0800 AC SC Metformin HCl 1,000 MG BID 08/06 2200 CAN PO Oxymetazoline HCl 3 SPRAY BID 08/07 1005 AC REGIS Pravastatin Sodium 80 MG 1700 08/07 1700 AC PO Prednisone 5 MG DAILY 08/07 1000 AC 08/07 PO 0913 Sodium Chloride 1,000 ML Q13H 08/06 2145 AC 08/07 IV 0133 Tamsulosin HCl 0.4 MG DAILY 08/06 2118 AC 08/07 PO 0913 Tramadol HCl 50 MG Q12P PRN 08/06 2130 AC PO Review of Systems Review of Systems: No rash. No tremor. No melena. All other systems were reviewed, and were noted to be negative. Past History Travel History Traveled to [place] past 21 day No Medical History Blood Transfusion Hx: Yes Neurological: NONE EENT: epistaxis, HEARING LOSS Cardiovascular: AFIB, CHF, hypertension, hyperlipidemia, STENTS x 5 LCW PACER/ DEBRILLATOR Respiratory: COPD, pneumonia Gastrointestinal: NONE Hepatic: NONE Renal: NONE Musculoskeletal: gout, osteoarthritis Psychiatric: NONE Endocrine: diabetes Blood Disorders: NONE Cancer(s): NONE BUILDING ARCHITECT/Reproductive: 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 Relation not specified for: Fam hx-ischem heart disease Fam hx-ischem heart disease Psychosocial History Who Do You Live With? spouse Services at Home: None Primary Language: Wolof Smoking Status: Former Smoker Functional Ability ADLs Independent: dressing, eating, toileting, bathing. Ambulation: independent IADLs Independent: shopping, housework, finances, food prep, telephone, transportation , medication admin. ECHO Results (as available) Report: CONCLUSIONS Mild concentric left ventricular hypertrophy. Left ventricular ejection fraction is estimated at 55-60 %. There is mild inferolateral hypokinesis. Other perez all contract well. Catheter/pacemaker wire in the right ventricular cavity. Catheter/pacemaker wire in the right atrial appendage. Mild to moderate left atrial dilatation. Mild to moderate thickening/calcification of the mitral valve leaflets. Foro-dx-ccmcmvca mitral regurgitation. Focal thickening of the aortic valve cusps. No aortic stenosis. Trace aortic regurgitation. Right ventricular systolic pressure estimated to be elevated at 40- 45 mmHg. The IVC is moderately dilated. Results are similar to the last echocardiogram of 12/02/2014, except that mild inferolateral hypokinesis of the left ventricle is noted on the current study. Exam & Diagnostic Data Vital Signs and I&O Vital Signs Date Time Temp Pulse Resp B/P B/P Pulse O2 O2 Flow FiO2 Mean Ox Delivery Rate 08/07 1051 Room Air Room Air 08/07 0913 88 120/62 08/07 0913 88 120/62 08/07 0822 97.9 88 18 120/62 90 Room Air 08/07 0800 Room Air 08/07 0131 93 122/56 08/07 0126 98.7 93 18 122/56 91 Room Air 08/06 2210 98.7 69 14 144/46 93 Room Air 08/06 2108 73 123/60 08/06 2054 98.9 72 18 133/63 94 Room Air Room Air 08/06 1656 98.5 70 18 118/57 94 Room Air Room Air 08/06 1538 98.6 73 20 100/57 92 Room Air Intake & Output 08/07 1600 08/07 0800 08/07 0000 08/06 1600 08/06 0800 08/06 0000 Intake Total 400 Output Total 150 200 Balance 250 -200 Intake, IV 400 Output, Urine 150 200 Patient 189 lb 189 lb Weight Weight Reported by Patient Measurement Method Physical Exam: Gen: The patient is in no acute distress HEENT: Normal nose, ears, and oropharynx. Pupils equal bilaterally. Conjunctiva normal. Neck: Supple with no JVD, no masses, and no thyromegaly Lungs: Clear to auscultation with normal respiratory effort Heart: RRR, S1, S2, 1/6 systolic murmur. No peripheral edema, 2+ pulses in the lower extremities bilaterally Abdomen: Soft, nontender, no masses. No hepatomegaly. No splenomegaly Extremities: No clubbing or cyanosis. Normal muscle strength in the upper and lower extremities Skin: Normal skin turgor with no skin ulcers or lesions noted. Neuro: Cranial nerves intact. Sensation intact Psych: Alert and oriented 3 with appropriate affect Labs/[place] Results: Laboratory Tests 08/07 Chemistry Lactic Acid (0.7 - 2.1 mmol/L) 0.8 Hematology CBC w Diff MAN DIFF ORDERED WBC (4.8 - 10.8 /CUMM) 13.6 H RBC (4.70 - 6.10 /CUMM) 3.36 L Hgb (14.0 - 18.0 G/DL) 8.8 L Hct (42 - 52 %) 27.4 L MCV (80.0 - 94.0 FL) 81.4 MCH (27.0 - 31.0 PG) 26.1 L RDW (11.5 - 14.5 %) 16.6 H Plt Count (130 - 400 /CUMM) 235 MPV (7.4 - 10.4 FL) 7.1 L Gran % (42.2 - 75.2 %) 85.6 H Lymphocytes % (20.5 - 51.1 %) 8.4 L Monocytes % (1.7 - 9.3 %) 5.1 Eosinophils % (0 - 5 %) 0.9 Basophils % (0.0 - 2.0 %) 0 L Absolute Granulocytes (1.4 - 6.5 /CUMM) 11.6 H Absolute Lymphocytes (1.2 - 3.4 /CUMM) 1.1 L Absolute Monocytes (0.10 - 0.60 /CUMM) 0.7 H Absolute Eosinophils (0.0 - 0.7 /CUMM) 0.1 Absolute Basophils (0.0 - 0.2 /CUMM) 0 Platelet Estimate (ADEQUATE) ADEQUATE Polychromasia 1+ Poikilocytosis 1+ Basophilic Stippling 1+ Ovalocytes 1+ PUBS MCHC (33.0 - 37.0 G/DL) 32.1 L Urines Urine Color (YEL,AMB,STR) YEL Urine Clarity (CLEAR) CLEAR Urine pH (5.0 - 8.0) 6.0 Ur Specific [place] (1.001 - 1.035) 1.025 Urine Protein (NEG,<30 MG/DL) 100 H Urine Ketones (NEG) NEG Urine Nitrite (NEG) NEG Urine Bilirubin (NEG) NEG Urine Urobilinogen (0.1 - 1.0 EU/dl) 0.2 Ur Leukocyte Esterase (NEG) NEG Ur Microscopic SEDIMENT EXAMINED Urine RBC (0 - 5 /HPF) RARE Urine WBC (0 - 2 /HPF) 1-3 H Ur Epithelial Cells (NONE,FEW) MOD H Hyaline Casts (0/LPF) MOD H Granular Casts (NONE /LPF) FEW H Urine Hemoglobin (NEG) NEG Urine Glucose (N MG/DL) NEG 08/06 1644 Chemistry Sodium (137 - 145 mmol/L) 132 L Potassium (3.5 - 5.1 mmol/L) 4.3 Chloride (98 - 107 mmol/L) 94 L Carbon Dioxide (22 - 30 mmol/L) 25 Anion Gap (5 - 16) 13 BUN (9 - 20 mg/dL) 52 H Creatinine (0.7 - 1.2 mg/dL) 2.6 H Estimated GFR (>60 ml/min) 24 L BUN/Creatinine Ratio (7 - 25 %) 20.0 Glucose (65 - 99 mg/dL) 137 H Calcium (8.4 - 10.2 mg/dL) 8.3 L Total Bilirubin (0.2 - 1.3 mg/dL) 0.5 AST (17 - 59 U/L) 21 ALT (21 - 72 U/L) 33 Alkaline Phosphatase (< 127 U/L) 61 Troponin I (<0.11 ng/ml) 0.01 Total Protein (6.3 - 8.2 g/dL) 5.9 L Albumin (3.5 - 5.0 g/dL) 3.1 L Globulin (1.9 - 4.2 gm/dL) 2.8 Albumin/Globulin Ratio (1.1 - 2.2 %) 1.1 Coagulation PT (9.4 - 12.5 SEC) 12.6 H INR (0.90 - 1.17) 1.20 H Hematology CBC w Diff NO MAN DIFF REQ WBC (4.8 - 10.8 /CUMM) 17.0 H RBC (4.70 - 6.10 /CUMM) 3.31 L Hgb (14.0 - 18.0 G/DL) 8.7 L Hct (42 - 52 %) 26.9 L MCV (80.0 - 94.0 FL) 81.3 MCH (27.0 - 31.0 PG) 26.3 L RDW (11.5 - 14.5 %) 16.9 H Plt Count (130 - 400 /CUMM) 236 MPV (7.4 - 10.4 FL) 6.8 L Gran % (42.2 - 75.2 %) 91.3 H Lymphocytes % (20.5 - 51.1 %) 4.2 L Monocytes % (1.7 - 9.3 %) 3.9 Eosinophils % (0 - 5 %) 0.1 Basophils % (0.0 - 2.0 %) 0.5 Absolute Granulocytes (1.4 - 6.5 /CUMM) 15.5 H Absolute Lymphocytes (1.2 - 3.4 /CUMM) 0.7 L Absolute Monocytes (0.10 - 0.60 /CUMM) 0.7 H Absolute Eosinophils (0.0 - 0.7 /CUMM) 0 Absolute Basophils (0.0 - 0.2 /CUMM) 0.1 PUBS MCHC (33.0 - 37.0 G/DL) 32.3 L Urines Ur Random Creatinine (mg/dL) 115.8 Ur Random Sodium (30 - 90 mmol/L) 23 L Ur Random Potassium (mmol/L) 35.9 Fraction Sodium Excret (<1% %) 0.4 Diagnostic Data EKG Results EKG tracing is independently reviewed, and reveals atrial sensed ventricular paced rhythm at a rate of 71 CXR Results Chest x-ray: Negative Other Results Echocardiogram 07/17/16: Mild to moderate concentric left ventricular hypertrophy. Left ventricular systolic function is mildly decreased with estimated ejection fraction 55-60%. There is mild postero-lateral hypokinesis seen. Catheter/pacemaker wire in the right atrial cavity. Moderate left atrial dilatation. There is moderate thickening of the anterior mitral leaflet and mild thickening of the posterior leaflet. [id number] mitral regurgitation. Focal thickening of the aortic valve cusps. No aortic stenosis. Right ventricular systolic pressure estimated to be elevated at 50- 55 mmHg. Moderate pulmonary hypertension. The inferior vena cava is mildly dilated. Assessment/Plan Assessment/Plan Assessment: 1. Paroxysmal atrial fibrillation 2. COPD 3. Anticoagulated on Xarelto 4. Pacemaker/ICD in situ 5. Coronary artery disease 6. Epistaxis with acute blood loss anemia Plan: * Transfusion as per the medical service for anemia * Further management of epistaxis as per ENT * Eliquis may be held until epistaxis resolves * Continue cardiac medications. Consult Acknowledgment - Thank you for your consult request.
[2016-08-07 17:23] VITALS: BP 124/68
[2016-08-07 23:00] VITALS: BP 128/68
--- NOTE | 2016-08-08 07:44 | Patient Discharge Instructions ---
Discharge Instructions General Discharge Information You were seen/treated for: epistaxis Decompensated heart failure Atrial fibrillation Acute kidney injury C. difficile You had these procedures: 2 units of blood Special Instructions: 1. please followup with your primary care after discharge 2. Please follow-up with your strategic partnership manager, Dr. Ramirez after discharge. 3. We are holding metformin, losartan, Amlodipine and labetalol because of acute kidney injury and low blood pressure in hospital. 4. We are Decreasing dose of Lasix to 40 mg daily. 5. We or increasing dose of Cardizem to 360 mg daily 6. Discharging you on insulin for now until your kidney function improves. Do not take metformin. 7. Insulin Sliding Scale blood sugar less than 80--eat something sweet blood sugar 80-150 mg/dl-- No insulin blood sugar 151-200 mg/dl-- 3 units blood sugar 201-250 mg/dl-- 5 units blood sugar 251-300 mg/dl-- 7 units blood sugar 301-350 mg/dl-- 9 units blood sugar 351-400 mg/dl-- 11 units more than 400 mg/dl-- 12 units and call your doctor Diet Continue normal diet: Yes Recommended Diet: Diabetic Activity Full Activity/No Limits: Yes Acute Coronary Syndrome Inclusion Criteria At DC or during hospital stay patient has or had the following: ACS DIAGNOSIS No Discharge Core Measures Meds if any: Prescribed or Continued at Discharge Meds if any: NOT Prescribed or Continued at Discharge Congestive Heart Failure Inclusion Criteria At DC or during hospital stay patient has or had the following: CHF DIAGNOSIS No Discharge Core Measures Meds if any: Prescribed or Continued at Discharge Meds if any: NOT Prescribed or Continued at Discharge Cerebrovascular accident Inclusion Criteria At DC or during hospital stay patient has or had the following: CVA/TIA Diagnosis No Discharge Core Measures Meds if any: Prescribed or Continued at Discharge Meds if any: NOT Prescribed or Continued at Discharge Venous thromboembolism Inclusion Criteria VTE Diagnosis No VTE Type NONE VTE Confirmed by (Test) NONE Discharge Core Measures - Per Current guidelines, there needs to be overlap - treatment for the first 5 days of Warfarin therapy. - If discharged on Warfarin prior to 5 days of - overlap therapy, the patient will need to be - assessed for post discharge needs including - *Post discharge parental anticoagulation - *Warfarin and/or parental anticoagulation education - *Follow up date to check INR post discharge At least 5 days overlap therapy as Inpatient No Meds if any: Prescribed or Continued at Discharge Note: Overlap Therapy is Warfarin and Anticoagulant Meds if any: NOT Prescribed or Continued at Discharge
[2016-08-08 08:06] LABS: ABSOLUTE BASOPHIL COUNT 0 /CUMM (0.0-0.2); ABSOLUTE EOSINOPHIL COUNT 0.1 /CUMM (0.0-0.7); ABSOLUTE GRANULOCYTE CT 8.5 /CUMM (1.4-6.5); ABSOLUTE LYMPH COUNT 0.9 /CUMM (1.2-3.4); ABSOLUTE MONOCYTE COUNT 0.5 /CUMM (0.10-0.60); BASOPHIL % 0.3 % (0.0-2.0); EOSINOPHIL % 1.3 % (0-5); HEMATOCRIT 30.3 % (42-52); MEAN CORPUSCULAR HGB 26.7 PG (27.0-31.0); MEAN CORPUSCULAR HGB CONC 32.5 G/DL (33.0-37.0); MEAN CORPUSCULAR VOLUME 82.1 FL (80.0-94.0); MEAN PLATELET VOLUME 7.4 FL (7.4-10.4); PLATELET COUNT 247 /CUMM (130-400); RBC DISTRIBUTION WIDTH 17.1 % (11.5-14.5); RED BLOOD CELL CT 3.69 /CUMM (4.70-6.10); WHITE BLOOD CELL COUNT 10.1 /CUMM (4.8-10.8)
[2016-08-08 08:27] VITALS: BP 130/70
--- NOTE | 2016-08-08 09:20 | PN- Housestaff ---
Subjective Follow-up For: Epistaxis Symptomatic anemia Orthostatic hypotension Tele-Events Since Last Visit: Sinus rhythm Heart rate 66-71 Subjective: This morning patient is alert, awake and oriented. He is still having bandage in front of his nose with mild oozing from left nares. He denies any chest pain or palpitations. Review of Systems Constitutional: Reports: see HPI. Objective Last 24 Hrs of Vital Signs/I&O Vital Signs Date Time Temp Pulse Resp B/P B/P Pulse O2 O2 Flow FiO2 Mean Ox Delivery Rate 08/08 0907 93 130/70 08/08 0907 93 130/70 08/08 0840 93 Room Air Room Air 08/08 0827 97.9 93 18 130/70 90 Room Air 08/08 0800 90 Room Air 08/08 0000 Room Air 08/07 2300 98.1 84 16 128/68 95 Room Air 08/07 1939 95 Room Air 08/07 1723 98.0 88 20 124/68 93 Room Air Intake & Output 08/08 1600 08/08 0800 08/08 0000 Intake Total 986.0 250 1085 Output Total Balance 986.0 250 1085 Intake, IV 62.0 0 75 Intake, Oral 551 567 4546 Number 1 0 0 Bowel Movements Physical Exam General Appearance: Alert, Oriented X3, Cooperative, No Acute Distress HEENT: bandage in front of nose. mild oozing from left nares Neck: Supple Cardiovascular: Regular Rate Lungs: Clear to Auscultation Abdomen: Normal Bowel Sounds, Soft, No Tenderness Extremities: No Edema Current Medications: Current Medications Sig/Clare Start time Last Medication Dose Route Stop Time Status Admin Acetaminophen 650 MG ONCE ONE 08/08 1030 DC 08/08 PO 08/08 1031 1053 Albuterol Sulfate 3 ML TID 08/07 1057 AC 08/08 INH 1350 Albuterol Sulfate 2 PUF Q6P PRN 08/06 2115 AC INH Amiodarone HCl 200 MG DAILY 08/07 1000 AC 08/08 PO 0907 Amoxicillin/ 875 MG BID 08/06 2199 AC 08/08 Clavulanate Potassium PO 08/10 2200 09 Budesonide/ 2 PUF BID 08/07 1000 AC 08/08 Formoterol Fumarate INH 0913 Diltiazem HCl 120 MG DAILY 08/07 1000 AC 08/08 PO 0907 Heparin Sodium 25,000 UNIT Q24H 08/08 1200 AC 08/08 (Porcine) IV 1219 Sodium Chloride 500 ML Insulin Aspart 0 TIDAC 08/07 0800 AC 08/08 SC 1301 Oxymetazoline HCl 3 SPRAY BID 08/07 1005 AC 08/08 REGIS 0906 Pravastatin Sodium 80 MG 1700 08/07 1700 AC 08/07 PO 1814 Prednisone 5 MG DAILY 08/07 1000 AC 08/08 PO 09 Tamsulosin HCl 0.4 MG DAILY 08/06 2118 AC 08/08 PO 09 Tramadol HCl 50 MG Q12P PRN 08/06 2130 AC 08/08 PO 0500 Last 24 Hrs of Lab/[place] Results Last 24 Hrs of Labs/[place]: Laboratory Tests 08/08/16 0611: Anion Gap 9, Estimated GFR 28 L, BUN/Creatinine Ratio 23.5, CBC w Diff MAN DIFF ORDERED, RBC 3.69 L, MCV 82.1, MCH 26.7 L, RDW 17.1 H, MPV 7.4, Gran % 84.0 H, Lymphocytes % 9.1 L, Monocytes % 5.3, Eosinophils % 1.3, Basophils % 0.3, Absolute Granulocytes 8.5 H, Absolute Lymphocytes 0.9 L, Absolute Monocytes 0.5, Absolute Eosinophils 0.1, Absolute Basophils 0, Platelet Estimate VERIFIED BY SMEAR, Polychromasia 1+, Poikilocytosis 1+, Anisocytosis 1+, Ovalocytes 1+, PUBS MCHC 32.5 L Assessment/Plan Assessment: Mr Caldwell is a 76-year-old man who is known to be in his usual state of health until a week ago. He has a past medical history of recurrent nosebleeds/ epistaxis (one year ago), atrial fibrillation on Xarelto, coronary artery disease (history of multiple stents), implantation of pacemaker/defibrillator, COPD. He is admitted on telemetry floor for: 1. Symptomatic anemia status post 2 units of blood transfusion 2. Mild oozing from left nares. Status post removal of nasal packing and cauterization by ENT prior to admission 3. Orthostatic hypotension. Stable 4. History of A. fib. Xarelto on hold 5. Acute on chronic kidney disease. Creatinine 2.3 PLAN * Monitor H&H * Watch for active bleeding through the nose * Continue Afrin nasal spray 3 puffs twice a day * Advised patient to avoid blowing his nose * Cardio consult appreciated * Started patient on IV heparin drip. If there is no bleed in 24 hours on heparin drip then we can switch him to PO xarelto after 24 hours * Would call ENT if patient starts bleeding actively * Continue Augmentin * Continue rest of home medications * 1 L normal saline today * Monitor kidney functions daily * Avoid NSAIDs * DVT prophylaxis * Full code Problem List: 1. Epistaxis 2. Acute renal failure Pain Ratin Pain Location: none Pain Goal: Pain 4 or less Pain Plan: tylenol Tomorrow's Labs & Rationales: cbc, bep DVT/Prophylaxis: pharmacological
--- NOTE | 2016-08-08 10:42 | PN- Cardiology ---
[facility] 08/08/16 1021: Subjective Subjective: Patient seen and examined, sitting in the bed comfortable with no acute distress , he reports pain all over his face especially around the nose and frontal head. Nasal packing removed on Saturday, currently he has resolbable nasal packing and a clean gauz around the nose. He denies any chest pain, shortness of breath, heart racing, diaphoresis, dizziness, and there is no change in urinary or bowel habits. His vitals stable. monitoring specialist: Single pacing, rate 88-111, no events Review of Systems Constitutional: Reports: no symptoms. EENTM: Reports: nasal congestion, epistaxis, nasal pain. Cardiovascular: Reports: no symptoms. Respiratory: Reports: no symptoms. Gastrointestinal: Reports: no symptoms. Genitourinary: Reports: no symptoms. Musculoskeletal: Reports: no symptoms. Skin: Reports: no symptoms. Neurological/Psychological: Reports: no symptoms. Hematologic/Endocrine: Reports: no symptoms. Immunologic/Allergic: Reports: no symptoms. All Other Systems: Reviewed and Negative Objective Vital Signs and I&Os Vital Signs Date Time Temp Pulse Resp B/P B/P Pulse O2 O2 Flow FiO2 Mean Ox Delivery Rate 08/08 0907 93 130/70 08/08 0907 93 130/70 08/08 0840 93 Room Air Room Air 08/08 0827 97.9 93 18 130/70 90 Room Air 08/08 0800 90 Room Air 08/08 0000 Room Air 08/07 2300 98.1 84 16 128/68 95 Room Air 08/07 1939 95 Room Air 08/07 1723 98.0 88 20 124/68 93 Room Air 08/07 1051 Room Air Room Air Intake & Output 08/08 1600 08/08 0800 08/08 0000 08/07 1600 08/07 0800 08/07 0000 Intake Total 250 1085 1789 400 Output Total 150 200 Balance 250 1085 1789 250 -200 Intake, Blood 350 Product Intake, IV 0 75 635 400 Intake, Oral 250 1010 804 Number 0 0 Bowel Movements Output, Urine 150 200 Patient 189 lb Weight Physical Exam General Appearance: well developed/nourished, no apparent distress, alert, awake , comfortable Head: atraumatic, normal appearance, he had a nasal spotting today at a.m. Neck: normal inspection, supple Respiratory: normal breath sounds, chest non-tender, no respiratory distress Cardiovascular: normal peripheral pulses, irregularly irregular Peripheral Pulses: 3+ dorsalis pedis (R), 3+ dorsalis pedis (L) Abdomen: normal bowel sounds, soft, non-tender Extremities: normal inspection, normal capillary refill, normal range of motion, no edema Current Medications: Current Medications Sig/Clare Start time Last Medication Dose Route Stop Time Status Admin Acetaminophen 650 MG ONCE ONE 08/08 1030 UNVr PO 08/08 1031 Albuterol Sulfate 3 ML TID 08/07 1057 AC 08/08 INH 0838 Albuterol Sulfate 2 PUF Q6P PRN 08/06 2115 AC INH Amiodarone HCl 200 MG DAILY 08/07 1000 AC 08/08 PO 0907 Amoxicillin/ 875 MG BID 08/06 2200 AC 08/08 Clavulanate Potassium PO 08/10 220 0907 Budesonide/ 2 PUF BID 08/07 1000 AC 08/08 Formoterol Fumarate INH 0913 Diltiazem HCl 120 MG DAILY 08/07 1000 AC 08/08 PO 0907 Insulin Aspart 0 TIDAC 08/07 0800 AC 08/08 SC 0907 Oxymetazoline HCl 3 SPRAY BID 08/07 1005 AC 08/08 REGIS 0906 Pravastatin Sodium 80 MG 1700 08/07 1700 AC 08/07 PO 1814 Prednisone 5 MG DAILY 08/07 1000 AC 08/08 PO 0907 Sodium Chloride 1,000 ML Q13H 08/06 2145 DC 08/07 IV 08/07 1044 0133 Tamsulosin HCl 0.4 MG DAILY 08/06 2118 AC 08/08 PO 0907 Tramadol HCl 50 MG Q12P PRN 08/06 2130 AC 08/08 PO 0500 Results Last 48 Hrs of Labs/Mics: Laboratory Tests 08/08/16 0611: Anion Gap 9, Estimated GFR 28 L, BUN/Creatinine Ratio 23.5, CBC w Diff MAN DIFF ORDERED, RBC 3.69 L, MCV 82.1, MCH 26.7 L, RDW 17.1 H, MPV 7.4, Gran % 84.0 H, Lymphocytes % 9.1 L, Monocytes % 5.3, Eosinophils % 1.3, Basophils % 0.3, Absolute Granulocytes 8.5 H, Absolute Lymphocytes 0.9 L, Absolute Monocytes 0.5, Absolute Eosinophils 0.1, Absolute Basophils 0, Platelet Estimate VERIFIED BY SMEAR, Polychromasia 1+, Poikilocytosis 1+, Anisocytosis 1+, Ovalocytes 1+, PUBS MCHC 32.5 L 08/07/16 0600: Sodium Cancelled, Potassium Cancelled, Chloride Cancelled, Carbon Dioxide Cancelled, Anion Gap Cancelled, BUN Cancelled, Creatinine Cancelled, BUN/ Creatinine Ratio Cancelled, CBC w Diff Cancelled, WBC Cancelled, RBC Cancelled, Hgb Cancelled, Hct Cancelled, MCV Cancelled, MCH Cancelled, RDW Cancelled, Plt Count Cancelled, MPV Cancelled, PUBS MCHC Cancelled 08/07/16 0100: Lactic Acid 0.8, CBC w Diff MAN DIFF ORDERED, RBC 3.36 L, MCV 81.4, MCH 26.1 L , RDW 16.6 H, MPV 7.1 L, Gran % 85.6 H, Lymphocytes % 8.4 L, Monocytes % 5.1 , Eosinophils % 0.9, Basophils % 0 L, Absolute Granulocytes 11.6 H, Absolute Lymphocytes 1.1 L, Absolute Monocytes 0.7 H, Absolute Eosinophils 0.1, Absolute Basophils 0, Platelet Estimate ADEQUATE, Polychromasia 1+, Poikilocytosis 1+, Basophilic Stippling 1+, Ovalocytes 1+, PUBS MCHC 32.1 L 08/06/162053: Urine Color YEL, Urine Clarity CLEAR, Urine pH 6.0, Ur Specific [place] 1.025, Urine Protein 100 H, Urine Ketones NEG, Urine Nitrite NEG, Urine Bilirubin NEG, Urine Urobilinogen 0.2, Ur Leukocyte Esterase NEG, Ur Microscopic SEDIMENT EXAMINED, Urine RBC RARE, Urine WBC 1-3 H, Ur Epithelial Cells MOD H, Hyaline Casts MOD H, Granular Casts FEW H, Urine Hemoglobin NEG, Urine Glucose NEG 08/06/162053: Ur Random Creatinine 115.8, Ur Random Sodium 23 L, Ur Random Potassium 35.9, Fraction Sodium Excret 0.4 08/06/16 1644: Anion Gap 13, Estimated GFR 24 L, BUN/Creatinine Ratio 20.0, Glucose 137 H, Calcium 8.3 L, Total Bilirubin 0.5, AST 21, ALT 33, Alkaline Phosphatase 61, Troponin I 0.01, Total Protein 5.9 L, Albumin 3.1 L, Globulin 2.8, Albumin/ Globulin Ratio 1.1, PT 12.6 H, INR 1.20 H, CBC w Diff NO MAN DIFF REQ, RBC 3.31 L, MCV 81.3, MCH 26.3 L, RDW 16.9 H, MPV 6.8 L, Gran % 91.3 H, Lymphocytes % 4.2 L, Monocytes % 3.9, Eosinophils % 0.1, Basophils % 0.5, Absolute Granulocytes 15.5 H, Absolute Lymphocytes 0.7 L, Absolute Monocytes 0.7 H, Absolute Eosinophils 0, Absolute Basophils 0.1, PUBS MCHC 32.3 L Assessment/Plan Assessment/Plan Mr Caldwell is a 76-year-old man who is known to be in his usual state of health until a week ago. He has a past medical history of recurrent nosebleeds/ epistaxis (one year ago), atrial fibrillation on Xarelto, coronary artery disease (history of multiple stents), implantation of pacemaker/defibrillator, COPD. He is admitted on telemetry floor for: Symptomatic anemia (hypotension), epistaxis. Assessment: 1. Paroxysmal atrial fibrillation anticoagulated with Cozaar also which is currently on hold secondary to epistaxis 2. COPD 3. Pacemaker/ICD in situ 4. Coronary artery disease 5. Epistaxis with acute blood loss anemia Plan: * Start IV heparin for anticoagulation for 24 hour if there is no more bleeding put him back on his Xarelto. * Monitor H&H and transfuse as needed * To follow-up with ENT as an outpatient * Continue cardiac medications which includes pravastatin 80 mg daily, diltiazem 120 mg daily. Continue telemetry? Yes
[2016-08-08 16:53] VITALS: BP 120/60
--- NOTE | 2016-08-08 17:58 | PN- Att Addend ---
Attending Addendum Attending Brief Note Patient comfortable in bed no active nasal bleed still a little oozing. Vital signs are stable no fever no major changes on physical, his H&H seems stable. Appreciate binitrotoluene operator implement and recommendations and will keep on IV heparin for today is no more active bleeding switch back to his normal anticoagulation in the morning and then start disposition plans. Intake & Output 08/08 1600 08/08 0400 08/07 1600 08/07 0400 08/06 1600 08/06 0400 Intake Total 1236.0 1085 2189 Output Total 150 200 Balance 1236.0 1085 2039 -200 Intake, Blood 350 Product Intake, IV 62.0 75 1035 Intake, Oral 1174 1010 804 Number 1 0 Bowel Movements Output, Urine 150 200 Patient 189 lb 189 lb Weight Weight Reported by Patient Measurement Method Current Medications Sig/Clare Start time Last Medication Dose Route Stop Time Status Admin Acetaminophen 650 MG ONCE ONE 08/08 1030 DC 08/08 PO 08/08 1031 1053 Albuterol Sulfate 3 ML TID 08/07 1057 AC 08/08 INH 1350 Albuterol Sulfate 2 PUF Q6P PRN 08/06 2114 AC INH Amiodarone HCl 200 MG DAILY 08/07 1000 AC 08/08 PO 0907 Amoxicillin/ 875 MG BID 08/06 2200 AC 08/08 Clavulanate Potassium PO 08/10 2201 0907 Budesonide/ 2 PUF BID 08/07 1000 AC 08/08 Formoterol Fumarate INH 0913 Diltiazem HCl 120 MG DAILY 08/07 1000 AC 08/08 PO 0907 Heparin Sodium 25,000 UNIT Q24H 08/08 1200 AC 08/08 (Porcine) IV 1219 Sodium Chloride 500 ML Insulin Aspart 0 TIDAC 08/07 0800 AC 08/08 SC 1653 Oxymetazoline HCl 3 SPRAY BID 08/07 1005 AC 08/08 REGIS 0906 Pravastatin Sodium 80 MG 1700 08/07 1700 AC 08/08 PO 1652 Prednisone 5 MG DAILY 08/07 1000 AC 08/08 PO 0907 Sodium Chloride 1,000 ML Q20H 08/08 1430 AC 08/08 IV 08/09 1029 1544 Tamsulosin HCl 0.4 MG DAILY 08/068 AC 08/08 PO 0907 Tramadol HCl 50 MG Q12P PRN 08/06 2130 AC 08/08 PO 1652 Laboratory Tests 08/08/16 0611: Anion Gap 9, Estimated GFR 28 L, BUN/Creatinine Ratio 23.5, CBC w Diff MAN DIFF ORDERED, RBC 3.69 L, MCV 82.1, MCH 26.7 L, RDW 17.1 H, MPV 7.4, Gran % 84.0 H, Lymphocytes % 9.1 L, Monocytes % 5.3, Eosinophils % 1.3, Basophils % 0.3, Absolute Granulocytes 8.5 H, Absolute Lymphocytes 0.9 L, Absolute Monocytes 0.5, Absolute Eosinophils 0.1, Absolute Basophils 0, Platelet Estimate VERIFIED BY SMEAR, Polychromasia 1+, Poikilocytosis 1+, Anisocytosis 1+, Ovalocytes 1+, PUBS MCHC 32.5 L 08/07/16 0600: Sodium Cancelled, Potassium Cancelled, Chloride Cancelled, Carbon Dioxide Cancelled, Anion Gap Cancelled, BUN Cancelled, Creatinine Cancelled, BUN/ Creatinine Ratio Cancelled, CBC w Diff Cancelled, WBC Cancelled, RBC Cancelled, Hgb Cancelled, Hct Cancelled, MCV Cancelled, MCH Cancelled, RDW Cancelled, Plt Count Cancelled, MPV Cancelled, PUBS MCHC Cancelled 08/07/16 0100: Lactic Acid 0.8, CBC w Diff MAN DIFF ORDERED, RBC 3.36 L, MCV 81.4, MCH 26.1 L , RDW 16.6 H, MPV 7.1 L, Gran % 85.6 H, Lymphocytes % 8.4 L, Monocytes % 5.1 , Eosinophils % 0.9, Basophils % 0 L, Absolute Granulocytes 11.6 H, Absolute Lymphocytes 1.1 L, Absolute Monocytes 0.7 H, Absolute Eosinophils 0.1, Absolute Basophils 0, Platelet Estimate ADEQUATE, Polychromasia 1+, Poikilocytosis 1+, Basophilic Stippling 1+, Ovalocytes 1+, PUBS MCHC 32.1 L 08/06/162053: Urine Color YEL, Urine Clarity CLEAR, Urine pH 6.0, Ur Specific E[place] 1.025, Urine Protein 100 H, Urine Ketones NEG, Urine Nitrite NEG, Urine Bilirubin NEG, Urine Urobilinogen 0.2, Ur Leukocyte Esterase NEG, Ur Microscopic SEDIMENT EXAMINED, Urine RBC RARE, Urine WBC 1-3 H, Ur Epithelial Cells MOD H, Hyaline Casts MOD H, Granular Casts FEW H, Urine Hemoglobin NEG, Urine Glucose NEG 08/06/162053: Ur Random Creatinine 115.8, Ur Random Sodium 23 L, Ur Random Potassium 35.9, Fraction Sodium Excret 0.4 08/06/161643: Anion Gap 13, Estimated GFR 24 L, BUN/Creatinine Ratio 20.0, Glucose 137 H, Calcium 8.3 L, Total Bilirubin 0.5, AST 21, ALT 33, Alkaline Phosphatase 61, Troponin I 0.01, Total Protein 5.9 L, Albumin 3.1 L, Globulin 2.8, Albumin/ Globulin Ratio 1.1, PT 12.6 H, INR 1.20 H, CBC w Diff NO MAN DIFF REQ, RBC 3.31 L, MCV 81.3, MCH 26.3 L, RDW 16.9 H, MPV 6.8 L, Gran % 91.3 H, Lymphocytes % 4.2 L, Monocytes % 3.9, Eosinophils % 0.1, Basophils % 0.5, Absolute Granulocytes 15.5 H, Absolute Lymphocytes 0.7 L, Absolute Monocytes 0.7 H, Absolute Eosinophils 0, Absolute Basophils 0.1, PUBS MCHC 32.3 L Microbiology 08/06 2118 LOWER RESP: Respiratory Culture - CAN Cancelled: SPECIMEN NOT RECEIVED IN LABORATORY 08/06 2118 LOWER RESP: Gram Stain - CAN Cancelled: SPECIMEN NOT RECEIVED IN LABORATORY 08/06 2053 URINE ROUT: Urine Culture - COMP 08/07 2039 BLOOD: Blood Culture - RES 08/06 2029 BLOOD: Blood Culture - RES Microbiology 08/06 2118 LOWER RESP: Respiratory Culture - CAN Cancelled: SPECIMEN NOT RECEIVED IN LABORATORY 08/06 2118 LOWER RESP: Gram Stain - CAN Cancelled: SPECIMEN NOT RECEIVED IN LABORATORY 08/06 2053 URINE ROUT: Urine Culture - COMP 08/07 2039 BLOOD: Blood Culture - RES 08/06 2029 BLOOD: Blood Culture - RES
[2016-08-08 19:18] LABS: PTT 54 SEC (25-37)
[2016-08-09 01:30] VITALS: BP 152/77
[2016-08-09 04:14] LABS: ABSOLUTE BASOPHIL COUNT 0 /CUMM (0.0-0.2); ABSOLUTE EOSINOPHIL COUNT 0.2 /CUMM (0.0-0.7); ABSOLUTE GRANULOCYTE CT 10.2 /CUMM (1.4-6.5); ABSOLUTE LYMPH COUNT 1.1 /CUMM (1.2-3.4); ABSOLUTE MONOCYTE COUNT 0.7 /CUMM (0.10-0.60); BASOPHIL % 0.3 % (0.0-2.0); EOSINOPHIL % 1.3 % (0-5); GRANULOCYTE % 83.5 % (42.2-75.2); HEMATOCRIT 33.3 % (42-52); MEAN CORPUSCULAR HGB 26.9 PG (27.0-31.0); MEAN CORPUSCULAR HGB CONC 32.6 G/DL (33.0-37.0); MEAN CORPUSCULAR VOLUME 82.6 FL (80.0-94.0); MEAN PLATELET VOLUME 7.1 FL (7.4-10.4); PLATELET COUNT 288 /CUMM (130-400); RBC DISTRIBUTION WIDTH 16.8 % (11.5-14.5); RED BLOOD CELL CT 4.03 /CUMM (4.70-6.10); WHITE BLOOD CELL COUNT 12.2 /CUMM (4.8-10.8)
[2016-08-09 04:21] LABS: PTT 78 SEC (25-37)
[2016-08-09 08:30] VITALS: BP 156/72
--- NOTE | 2016-08-09 11:26 | PN- Cardiology ---
Subjective Subjective: The patient notes that his bleeding appears to have stopped. He has been on IV Lasix overnight. He is feeling well from a cardiac standpoint. No chest pain. No shortness of breath. No diaphoresis. No palpitations. No lightheadedness or dizziness. No nausea or vomiting. Objective Vital Signs and I&Os Vital Signs Date Time Temp Pulse Resp B/P B/P Pulse O2 O2 Flow FiO2 Mean Ox Delivery Rate 08/09 1016 156/72 08/09 1016 156/72 08/09 0830 98.2 103 18 156/72 90 Room Air 08/09 0759 92 Room Air Room Air 08/09 0130 97.7 92 20 152/77 90 Room Air 08/09 0000 91 Room Air 08/08 1805 93 Room Air 08/08 1653 98.8 70 20 120/60 90 Room Air Intake & Output 08/09 1600 08/09 0800 08/09 0000 08/08 1600 08/08 0800 08/08 0000 Intake Total 1270 1886 986.0 250 1085 Output Total Balance 1270 1886 986.0 250 1085 Intake, IV 820 1064 62.0 0 75 Intake, Oral 450 822 712 723 7500 Number 1 1 0 0 Bowel Movements Physical Exam: Gen: The patient is in no acute distress HEENT: Normal nose, ears, and oropharynx. Pupils equal bilaterally. Conjunctiva normal. Neck: Supple with no JVD, no masses, and no thyromegaly Lungs: Clear to auscultation with normal respiratory effort Heart: RRR, S1, S2, 1/6 systolic murmur. No peripheral edema, 2+ pulses in the lower extremities bilaterally Abdomen: Soft, nontender, no masses. No hepatomegaly. No splenomegaly Extremities: No clubbing or cyanosis. Normal muscle strength in the upper and lower extremities Skin: Normal skin turgor with no skin ulcers or lesions noted. Current Medications: Current Medications Sig/Clare Start time Last Medication Dose Route Stop Time Status Admin Albuterol Sulfate 3 ML TID 08/07 1057 AC 08/09 INH 0759 Albuterol Sulfate 2 PUF Q6P PRN 08/065 AC INH Amiodarone HCl 200 MG DAILY 08/07 1000 AC 08/09 PO 1016 Amoxicillin/ 875 MG BID 08/06 2199 AC 08/09 Clavulanate Potassium PO 06/23 2201 1016 Budesonide/ 2 PUF BID 08/07 1000 AC 08/09 Formoterol Fumarate INH 1017 Diltiazem HCl 120 MG DAILY 08/07 1000 AC 08/09 PO 1016 Heparin Sodium 25,000 UNIT Q24H 08/08 1200 AC 08/09 (Porcine) IV 0603 Sodium Chloride 500 ML Insulin Aspart 0 TIDAC 08/07 0800 AC 08/08 SC 1653 Oxymetazoline HCl 3 SPRAY BID 08/07 1005 AC 08/09 REGIS 1017 Potassium Chloride 40 MEQ ONCE ONE 08/09 0800 DC 08/09 PO 08/09 0801 1016 Pravastatin Sodium 80 MG 1700 08/07 1700 AC 08/08 PO 1652 Prednisone 5 MG DAILY 08/07 1000 AC 08/09 PO 1016 Sodium Chloride 1,000 ML Q20H 08/08 1430 DC 08/08 IV 08/09 1029 1544 Tamsulosin HCl 0.4 MG DAILY 08/06 2118 AC 08/09 PO 1016 Tramadol HCl 50 MG Q12P PRN 08/06 2130 AC 08/08 PO 1652 Results Last 48 Hrs of Labs/Mics: Laboratory Tests 08/09/16 1045: APTT Pending 08/09/16 0350: Anion Gap 10, Estimated GFR 33 L, BUN/Creatinine Ratio 22.5, Magnesium 2.1, Troponin I 0.04, APTT 78 H, CBC w Diff NO MAN DIFF REQ, RBC 4.03 L, MCV 82.6, MCH 26.9 L, RDW 16.8 H, MPV 7.1 L, Gran % 83.5 H, Lymphocytes % 9.5 L, Monocytes % 5.4, Eosinophils % 1.3, Basophils % 0.3, Absolute Granulocytes 10.2 H, Absolute Lymphocytes 1.1 L, Absolute Monocytes 0.7 H, Absolute Eosinophils 0.2, Absolute Basophils 0, PUBS MCHC 32.6 L 08/08/16 1825: APTT 54 H 08/08/16 0611: Anion Gap 9, Estimated GFR 28 L, BUN/Creatinine Ratio 23.5, CBC w Diff MAN DIFF ORDERED, RBC 3.69 L, MCV 82.1, MCH 26.7 L, RDW 17.1 H, MPV 7.4, Gran % 84.0 H, Lymphocytes % 9.1 L, Monocytes % 5.3, Eosinophils % 1.3, Basophils % 0.3, Absolute Granulocytes 8.5 H, Absolute Lymphocytes 0.9 L, Absolute Monocytes 0.5, Absolute Eosinophils 0.1, Absolute Basophils 0, Platelet Estimate VERIFIED BY SMEAR, Polychromasia 1+, Poikilocytosis 1+, Anisocytosis 1+, Ovalocytes 1+, PUBS MCHC 32.5 L Assessment/Plan Assessment/Plan Assessment: 1. Paroxysmal atrial fibrillation 2. COPD 3. Anticoagulated on Xarelto 4. Pacemaker/ICD in situ 5. Coronary artery disease 6. Epistaxis with acute blood loss anemia Plan: * Would discontinue IV heparin, and restart Xarelto * If further bleeding, the Xarelto may need to be held again. * Continue other cardiac medications. * Management of epistaxis as per ENT Continue telemetry? No
[2016-08-09 12:05] LABS: PTT 64 SEC (25-37)
--- NOTE | 2016-08-09 12:41 | PN- Att Addend ---
Attending Addendum Attending Brief Note Patient about the sameis still covered still loosing a little bit. Was on heparin IV overnight and will reassess today with cardiology to see if we can restart the Xarelto and also check the monitor strips if there is no problem then we will start disposition plans for the patient to be discharged home and follow-up with the ENT cardiology and myself. 24 TOTALS 08/09 0000 08/08 0000 Intake Total 3122.0 3274 Output Total 150 Balance 3122.0 3124 Intake, Blood 350 Product Intake, IV 1126.0 1110 Intake, Oral 1995 1814 Number 2 0 Bowel Movements Output, Urine 150 Patient 189 lb Weight Current Medications Sig/Clare Start time Last Medication Dose Route Stop Time Status Admin Albuterol Sulfate 3 ML TID 08/07 1057 AC 08/09 INH 0759 Albuterol Sulfate 2 PUF Q6P PRN 08/06 2115 AC INH Amiodarone HCl 200 MG DAILY 08/07 1000 AC 08/09 PO 1016 Amoxicillin/ 875 MG BID 08/06 2200 AC 08/09 Clavulanate Potassium PO 08/10 2201 1016 Budesonide/ 2 PUF BID 08/07 1000 AC 08/09 Formoterol Fumarate INH 1017 Diltiazem HCl 120 MG DAILY 08/07 1000 AC 08/09 PO 1016 Heparin Sodium 25,000 UNIT Q24H 08/08 1200 DC 08/09 (Porcine) IV 0603 Sodium Chloride 500 ML Insulin Aspart 0 TIDAC 08/07 0800 AC 08/08 SC 1653 Oxymetazoline HCl 3 SPRAY BID 08/07 1005 AC 08/09 REGIS 1017 Potassium Chloride 40 MEQ ONCE ONE 08/09 0800 DC 08/09 PO 08/09 0801 1016 Pravastatin Sodium 80 MG 1700 08/07 1700 AC 08/08 PO 1652 Prednisone 5 MG DAILY 08/07 1000 AC 08/09 PO 1016 Rivaroxaban 15 MG DAILY 08/09 1227 AC PO Sodium Chloride 1,000 ML Q20H 08/08 1430 DC 08/08 IV 08/09 1029 1544 Tamsulosin HCl 0.4 MG DAILY 08/06 2118 AC 08/09 PO 1016 Tramadol HCl 50 MG Q12P PRN 08/06 2130 AC 08/08 PO 1652 Laboratory Tests 08/09/16 1045: APTT 64 H 08/09/16 0350: Anion Gap 10, Estimated GFR 33 L, BUN/Creatinine Ratio 22.5, Magnesium 2.1, Troponin I 0.04, APTT 78 H, CBC w Diff NO MAN DIFF REQ, RBC 4.03 L, MCV 82.6, MCH 26.9 L, RDW 16.8 H, MPV 7.1 L, Gran % 83.5 H, Lymphocytes % 9.5 L, Monocytes % 5.4, Eosinophils % 1.3, Basophils % 0.3, Absolute Granulocytes 10.2 H, Absolute Lymphocytes 1.1 L, Absolute Monocytes 0.7 H, Absolute Eosinophils 0.2, Absolute Basophils 0, PUBS MCHC 32.6 L 08/08/16 1825: APTT 54 H 08/08/16 0611: Anion Gap 9, Estimated GFR 28 L, BUN/Creatinine Ratio 23.5, CBC w Diff MAN DIFF ORDERED, RBC 3.69 L, MCV 82.1, MCH 26.7 L, RDW 17.1 H, MPV 7.4, Gran % 84.0 H, Lymphocytes % 9.1 L, Monocytes % 5.3, Eosinophils % 1.3, Basophils % 0.3, Absolute Granulocytes 8.5 H, Absolute Lymphocytes 0.9 L, Absolute Monocytes 0.5, Absolute Eosinophils 0.1, Absolute Basophils 0, Platelet Estimate VERIFIED BY SMEAR, Polychromasia 1+, Poikilocytosis 1+, Anisocytosis 1+, Ovalocytes 1+, PUBS MCHC 32.5 L
--- NOTE | 2016-08-09 15:39 | PN- Housestaff ---
Subjective Follow-up For: Epistaxis Symptomatic anemia Orthostatic hypotension Tele-Events Since Last Visit: Short runs of V. tach overnight Subjective: This morning patient is alert, awake and oriented. He is still having bandage in front of his nose with mild oozing from left nares. He denies any chest pain or palpitations. He is concerned about his discharge Review of Systems Constitutional: Reports: see HPI. Objective Last 24 Hrs of Vital Signs/I&O Vital Signs Date Time Temp Pulse Resp B/P B/P Pulse O2 O2 Flow FiO2 Mean Ox Delivery Rate 08/09 1016 156/72 08/09 1016 156/72 08/09 0830 98.2 103 18 156/72 90 Room Air 08/09 0759 92 Room Air Room Air 08/09 0130 97.7 92 20 152/77 90 Room Air 08/09 0000 91 Room Air 08/08 1805 93 Room Air 08/08 1653 98.8 70 20 120/60 90 Room Air Intake & Output 08/09 1600 08/09 0800 08/09 0000 Intake Total 1270 1270 1886 Output Total Balance 1270 1270 1886 Intake, IV 612 045 9349 Intake, Oral 720 450 822 Number 1 Bowel Movements Physical Exam General Appearance: Alert, Oriented X3, Cooperative, No Acute Distress Cardiovascular: Regular Rate Lungs: Clear to Auscultation Abdomen: Normal Bowel Sounds, Soft, No Tenderness Neurological: Normal Speech, Strength at 5/5 X4 Ext, Sensation Intact, Cranial Nerves 3-12 NL Extremities: No Edema Current Medications: Current Medications Sig/Clare Start time Last Medication Dose Route Stop Time Status Admin Albuterol Sulfate 3 ML TID 08/07 1057 AC 08/09 INH 1323 Albuterol Sulfate 2 PUF Q6P PRN 08/065 AC INH Amiodarone HCl 200 MG DAILY 08/07 1000 AC 08/09 PO 1016 Amoxicillin/ 875 MG BID 08/06 2199 AC 08/09 Clavulanate Potassium PO 08/10 2200 1016 Budesonide/ 2 PUF BID 08/07 1000 AC 08/09 Formoterol Fumarate INH 1017 Diltiazem HCl 120 MG DAILY 08/07 1000 AC 08/09 PO 1016 Heparin Sodium 25,000 UNIT Q24H 08/08 1200 DC 08/09 (Porcine) IV 0603 Sodium Chloride 500 ML Insulin Aspart 0 TIDAC 08/07 0800 AC 08/08 SC 1653 Oxymetazoline HCl 3 SPRAY BID 08/07 1005 AC 08/09 REGIS 1017 Potassium Chloride 40 MEQ ONCE ONE 08/09 1300 DC PO 08/09 1301 Potassium Chloride 40 MEQ ONCE ONE 08/09 0800 DC 08/09 PO 08/09 0801 1016 Pravastatin Sodium 80 MG 1700 08/07 1700 AC 08/08 PO 1652 Prednisone 5 MG DAILY 08/07 1000 AC 08/09 PO 1016 Rivaroxaban 15 MG DAILY 08/09 1227 AC PO Sodium Chloride 1,000 ML Q20H 08/08 1430 DC 08/08 IV 08/09 1029 1544 Tamsulosin HCl 0.4 MG DAILY 08/06 2118 AC 08/09 PO 1016 Tramadol HCl 50 MG Q12P PRN 08/06 2130 AC 08/08 PO 1652 Last 24 Hrs of Lab/[place] Results Last 24 Hrs of Labs/Mics: Laboratory Tests 08/09/16 1045: APTT 64 H 08/09/16 0350: Anion Gap 10, Estimated GFR 33 L, BUN/Creatinine Ratio 22.5, Magnesium 2.1, Troponin I 0.04, APTT 78 H, CBC w Diff NO MAN DIFF REQ, RBC 4.03 L, MCV 82.6, MCH 26.9 L, RDW 16.8 H, MPV 7.1 L, Gran % 83.5 H, Lymphocytes % 9.5 L, Monocytes % 5.4, Eosinophils % 1.3, Basophils % 0.3, Absolute Granulocytes 10.2 H, Absolute Lymphocytes 1.1 L, Absolute Monocytes 0.7 H, Absolute Eosinophils 0.2, Absolute Basophils 0, PUBS MCHC 32.6 L 08/08/16 1825: APTT 54 H Assessment/Plan Assessment: Mr Caldwell is a 76-year-old man who is known to be in his usual state of health until a week ago. He has a past medical history of recurrent nosebleeds/ epistaxis (one year ago), atrial fibrillation on Xarelto, coronary artery disease (history of multiple stents), implantation of pacemaker/defibrillator, COPD. He is admitted on telemetry floor for: 1. Symptomatic anemia status post 2 units of blood transfusion. Stable 2. Mild oozing from left nares. Status post removal of nasal packing and cauterization by ENT prior to admission 3. Orthostatic hypotension. Stable 4. History of A. fib. Xarelto on hold. On IV heparin drip right now. No more epistaxis 5. Acute on chronic kidney disease. Creatinine 2 (baseline around 1.6) 6. Multiple Runs of V. tach overnight 7. Leukocytosis. WBC count 12.2. Could be reactive. No obvious source of infection. Patient is already on antibiotics PLAN * Monitor H&H * Watch for active bleeding through the nose * Continue Afrin nasal spray 3 puffs twice a day * Advised patient to avoid blowing his nose * Cardio consult appreciated * Discontinued IV heparin drip and started patient on Xarelto. If patient starts bleeding then hold Xarelto * Would call ENT if patient starts bleeding actively * Continue Augmentin * Continue rest of home medications * 1 L normal saline today * Monitor kidney functions daily * Avoid NSAIDs * DVT prophylaxis * Full code Made him full admission today as patient need more cardiac monitoring in the setting of short runs of V. tach last night per cardio. Would monitor electrolytes and replete accordingly. Problem List: 1. Epistaxis 2. Anemia Pain Ratin Pain Location: none Pain Goal: Pain 4 or less Pain Plan: tylenol Tomorrow's Labs & Rationales: bep DVT/Prophylaxis: pharmacological
[2016-08-09 16:00] VITALS: BP 140/80
[2016-08-09 20:30] VITALS: BP 138/80
[2016-08-09 21:09] LABS: ABSOLUTE BASOPHIL COUNT 0.1 /CUMM (0.0-0.2); ABSOLUTE EOSINOPHIL COUNT 0.1 /CUMM (0.0-0.7); ABSOLUTE MONOCYTE COUNT 0.9 /CUMM (0.10-0.60); BASOPHIL % 0.3 % (0.0-2.0); MEAN CORPUSCULAR VOLUME 82.2 FL (80.0-94.0); RBC DISTRIBUTION WIDTH 17.6 % (11.5-14.5)
--- NOTE | 2016-08-09 21:10 | Event Note ---
Event Note Event Note: S: Called to Patient's bedside as he was having difficulty breathing. Informed by nursing staff that he had be feeling "off" all day. Around 8pm he went to the bathroom and went he came out he developed sudden onset shortness of breath. I was not able to obtain a proper history as he was not able to converse. Vitals: T: 97.9, HR 110, RR30, BP 138/90, Saturations were fluctuating from 90% to 75% on 100% nonrebreather. CVS: S1S2, tachycardia RS: B/L decreased air entry, B/L Coarse rhonchi and exp wheezes heard in all areas, no crackle were appreciated MsK: no edema B: 76 year old gentleman with past medical history of CHF, A. fib on xarelto, pacemaker and IVCD was admitted for FIORDALIZA and anemia due to epistaxis s/p 2 Units of PRBC and b/l nasal packing and IVF hydration for FIORDALIZA, total of 5L positive fluid balance now presenting with respiratory distress. A: possible Acute on C/C CHF secondary to fliud overload vs PE (less likely on xarelto) vs COPD exacerbation R: Stat ABG, CXR, CBC, BEP,TROP and EKG Gave IV 20 of lasix and called Telegraph Repeater Technician Dr. Olson, who recommended another 20 of IV lasix.He continue to Desaturate, ABG significant for hypoxia only. Stat transfer to ICU for Severe hypoxic respiratory distress and intubation. Called ICU attending Dr. Shell, informed Dr. Delatorre. Called and updated . Sign out Given to Dr. Cruz. sign out Given to Dr. Cruz.
[2016-08-09 21:12] LABS: ABSOLUTE GRANULOCYTE CT 16.9 /CUMM (1.4-6.5); ABSOLUTE LYMPH COUNT 1.3 /CUMM (1.2-3.4); EOSINOPHIL % 0.4 % (0-5); GRANULOCYTE % 87.5 % (42.2-75.2); MEAN CORPUSCULAR HGB 26.5 PG (27.0-31.0); MEAN CORPUSCULAR HGB CONC 32.3 G/DL (33.0-37.0); PLATELET COUNT 400 /CUMM (130-400)
[2016-08-09 21:14] LABS: HEMATOCRIT 40.3 % (42-52); WHITE BLOOD CELL COUNT 19.3 /CUMM (4.8-10.8)
--- NOTE | 2016-08-09 21:36 | RADIOLOGY REPORT ---
EXAMINATION: XR PORTABLE CHEST CLINICAL INFORMATION: Dyspnea COMPARISON: Chest x-ray 08/06/2016 TECHNIQUE: Portable frontal view of the chest was obtained. 8:50 PM FINDINGS: Pacemaker in place. No change in position of the right atrial, right ventricular leads. There is pulmonary edema with airspace opacity in the mid and lower lung steven. Central hilar pulmonary vascular congestion and increased interstitial lung markings. IMPRESSION: Congestive heart failure.
--- NOTE | 2016-08-09 22:16 | Event Note ---
Event Note Event Note: around 9 pm patient was
--- NOTE | 2016-08-09 22:23 | RADIOLOGY REPORT ---
EXAMINATION: XR PORTABLE CHEST CLINICAL INFORMATION: Post intubation. Congestive heart failure. COMPARISON: Chest x-ray 08/09/2016, 8:50 PM TECHNIQUE: Portable frontal view of the chest was obtained. 9:51 PM FINDINGS: Endotracheal tube catheter is in place. Catheter is approximate 8 cm above the ana at the thoracic inlet. Nasogastric tube is in place. Catheter passes below the diaphragm but the catheter tip is not included in the image. There is congestive heart failure with bilateral pulmonary edema. Pacemaker leads present. IMPRESSION: Endotracheal tube catheter approximately 8 cm above the ana. Nasogastric tube passing into the stomach. Congestive heart failure with bilateral pulmonary edema.
--- NOTE | 2016-08-09 22:29 | NUR ---
NURSING NOTE: 2014 PT SITTING AT EDGE OF BED W/ C/O OF SOB. RT AT BEDSIDE, [facility] [place] IN PROCESS. PT O2 SAT POST TX 80-90%, PT PLACED ON 30% VENTIMASK BY RT AT THIS TIME. DR. RUBALCAVA AWARE. 2029 PT COMPLAINING OF INCREASING SOB, STAT CHEST XRAY, ABG ORDERED. MD AT BEDSIDE, RT PAGED AND AT BEDSIDE. PT PLACED ON 55% VM WITH MINIMAL INCREASES IN O2 SAT. PT PLACED ON 100% NONREBREATHER, O2 SAT 90%. VITAL SIGNS BP 138/80, HR 110, 90% NONREBREATHER, RR 30, TEMP 97.9. ABGS DRAWN AND SENT, BLOOD WORK DRAWN AND SENT, UNABLE TO COMPLETE EKG AT THIS TIME. CHEST XRAY COMPLETED, PT TRANSFERED TO ICU AT 2145. REPORT GIVEN TO MICHELLE HARGROVE.
--- NOTE | 2016-08-09 23:39 | Acceptance Note - Resident/Int ---
Subjective Background: Patient with past medical history of CHF, A. fib, pacemaker and IVCD was admitted for FIORDALIZA and anemia due to epistaxis, had respiratory distress during the night despite being on 100% nonrebreather mask. since patient had nasal packing using BiPAP was not feasible. Patient was transferred to ICU and got intubated, shingle sawyer, relief captain Nhan Shell MD, attending, family was notified. Review of Systems Constitutional: Reports: see HPI. Objective Last 24 Hrs of Vital Signs/I&O Vital Signs Date Time Temp Pulse Resp B/P B/P Pulse O2 O2 Flow FiO2 Mean Ox Delivery Rate 08/09 2145 100 08/09 2010 88 Room Air Room Air 08/09 1600 98.3 99 20 140/80 92 Room Air 08/09 1016 156/72 08/09 1016 156/72 08/09 0830 98.2 103 18 156/72 90 Room Air 08/09 0759 92 Room Air Room Air 08/09 0130 97.7 92 20 152/77 90 Room Air 08/09 0000 91 Room Air Intake & Output 08/09 1600 08/09 0800 08/09 0000 Intake Total 1270 1270 1886 Output Total Balance 1270 1270 1886 Intake, IV 612 090 3683 Intake, Oral 720 450 822 Number 1 Bowel Movements Physical Exam General Appearance: Severe Distress, alert but disoriented Skin Temp/Moisture Exam: Cool/Diaphoretic Cardiovascular: tachycardia Lungs: tight lungs and bilateral wheezing Abdomen: Normal Bowel Sounds, Soft Current Medications: Current Medications Sig/Clare Start time Last Medication Dose Route Stop Time Status Admin Albuterol Sulfate 3 ML TID 08/07 1057 AC 08/09 INH 1953 Albuterol Sulfate 2 PUF Q6P PRN 08/06 2114 AC INH Amiodarone HCl 200 MG DAILY 08/07 1000 AC 08/09 PO 1016 Amoxicillin/ 875 MG BID 08/06 2199 DC 08/09 Clavulanate Potassium PO 08/10 2200 1016 Budesonide/ 2 PUF BID 08/07 1000 AC 08/09 Formoterol Fumarate INH 2009 Calcium Gluconate 1 GM ONCE ONE 08/09 2314 AC Sodium Chloride 100 ML IV 08/10 0014 Ceftazidime 1,000 MG ONCE ONE 08/09 2144 DC 08/09 IV 08/09 2145 2303 Dextrose 25 GM ONCE ONE 08/09 2315 DC IV 08/09 2316 Diltiazem HCl 120 MG DAILY 08/07 1000 AC 08/09 PO 1016 Fentanyl Citrate 1,000 MCG Q12H 08/09 2300 AC 08/09 Dextrose/Water 250 ML IV 2302 Furosemide 40 MG ONCE ONE 08/09 2245 DC 08/09 IV 08/09 2246 2300 Furosemide 20 MG ONCE ONE 08/09 211 DC 08/09 IV 08/09 Furosemide 20 MG ONCE ONE 08/09 2045 DC 08/09 IV 08/09 Heparin Sodium 25,000 UNIT Q24H 08/08 1200 DC 08/09 (Porcine) IV 0603 Sodium Chloride 500 ML Insulin Aspart 0 TIDAC 08/07 0800 AC 08/09 SC 165 Insulin Human Regular 10 UNITS ONCE ONE 08/09 2314 DC IV 08/09 231 Methylprednisolone 125 MG ONCE ONE 08/09 2114 DC 08/09 IV 08/09 Non-Formulary 0 SEE ADMIN CRITERIA 08/09 2214 CAN Medication ANY Oxymetazoline HCl 3 SPRAY BID 08/07 1005 AC 08/09 REGIS 2010 Pantoprazole Sodium 40 MG DAILY 08/09 2230 AC 08/09 IV 2302 Potassium Chloride 40 MEQ ONCE ONE 08/09 1300 DC 08/09 PO 08/09 1301 1536 Potassium Chloride 40 MEQ ONCE ONE 08/09 0800 DC 08/09 PO 08/09 0801 1016 Pravastatin Sodium 80 MG 1700 08/07 1700 AC 08/09 PO 1535 Prednisone 5 MG DAILY 08/07 1000 AC 08/09 PO 1016 Propofol 1,000 MG Q12H 08/09 2300 AC 08/09 N/A 100 ML IV 2200 Rivaroxaban 15 MG DAILY 08/09 1227 AC 08/09 PO 1535 Sodium Chloride 1,000 ML Q13H 08/09 1545 DC 08/09 IV 08/10 0444 1612 Sodium Chloride 1,000 ML Q20H 08/08 1430 DC 08/08 IV 08/09 1029 1544 Sodium Polystyrene 60 ML ONCE ONE 08/09 2315 DC Sulfonate PO 08/09 2316 Tamsulosin HCl 0.4 MG DAILY 08/06 2118 AC 08/09 PO 1016 Tramadol HCl 50 MG Q12P PRN 08/06 2130 AC 08/08 PO 1652 Vancomycin HCl 1,000 MG ONCE ONE 08/09 2144 DC 08/09 Sodium Chloride 250 ML IV 08/09 2244 2306 Last 24 Hrs of Lab/[place] Results Last 24 Hrs of Labs/Mics: Laboratory Tests 08/09/16 2250: pH 7.33 L, pCO2 44, pO2 93, HCO3 23, ABG O2 Sat (Measured) 96.0, P-50 (Temp Corrected) N, Carboxyhemoglobin 0.3 L, O2 Concentration % 100%, Temperature 97.1, Respiration Rate 20, O2 Delivery Method ESPRIT VENT, Vent Mode AC, Expiratory Pressure 5, Tidal Volume 500, Phlebotomy Draw Site RIGHT RADIAL 08/09/16 2200: Anion Gap 14, Estimated GFR 35 L, Glucose 165 H, Lactic Acid 1.7, Calcium 8.6, Phosphorus 4.3, Magnesium 2.0, Total Bilirubin 0.4, AST 29, ALT 36, Pro-B- Natriuretic Pept 01972 H, Albumin 3.3 L, APTT Cancelled 08/09/16 2100: Anion Gap 13, Estimated GFR 39 L, BUN/Creatinine Ratio , Troponin I 0.03, CBC w Diff MAN DIFF ORDERED, RBC 4.90, MCV 82.2, MCH 26.5 L, RDW 17.6 H, MPV 7.0 L, Gran % 87.5 H, Lymphocytes % 6.9 L, Monocytes % 4.9, Eosinophils % 0.4, Basophils % 0.3, Absolute Granulocytes 16.9 H, Absolute Lymphocytes 1.3, Absolute Monocytes 0.9 H, Absolute Eosinophils 0.1, Absolute Basophils 0.1, Platelet Estimate ADEQUATE, Normochromic RBCs VERIFIED, Stomatocytes 1+, PUBS MCHC 32.3 L 08/09/162034: pH 7.41, pCO2 37, pO2 74 L, HCO3 23, ABG O2 Sat (Measured) 94.0 L, P-50 (Temp Corrected) N, Carboxyhemoglobin 0.2 L, O2 Concentration % 100%, Temperature 97.9, O2 Delivery Method NRB, Phlebotomy Draw Site RIGHT BRACHIAL 08/09/16 1045: APTT 64 H 08/09/16 0350: Anion Gap 10, Estimated GFR 33 L, BUN/Creatinine Ratio 22.5, Magnesium 2.1, Troponin I 0.04, APTT 78 H, CBC w Diff NO MAN DIFF REQ, RBC 4.03 L, MCV 82.6, MCH 26.9 L, RDW 16.8 H, MPV 7.1 L, Gran % 83.5 H, Lymphocytes % 9.5 L, Monocytes % 5.4, Eosinophils % 1.3, Basophils % 0.3, Absolute Granulocytes 10.2 H, Absolute Lymphocytes 1.1 L, Absolute Monocytes 0.7 H, Absolute Eosinophils 0.2, Absolute Basophils 0, PUBS MCHC 32.6 L Microbiology 08/09 2209 BLOOD: Blood Culture - RECD 08/09 2204 BLOOD: Blood Culture - RECD 08/10 2147 LOWER RESP: Respiratory Culture - RECD 08/10 2147 LOWER RESP: Gram Stain - RECD 08/09 2129 URINE ROUT: Urine Culture - RECD Assessment/Plan Assessment: Mr Caldwell is a 76-year-old man who is known to be in his usual state of health until a week ago. He has a past medical history of recurrent nosebleeds/ epistaxis (one year ago), atrial fibrillation on Xarelto, coronary artery disease (history of multiple stents), implantation of pacemaker/defibrillator, COPD. He developed respiratory distress during the night despite being on 100% nonrebreather mask. Patient was transferred to ICU and got intubated, shingle sawyer, relief captain Nhan Shell MD, attending(DR Abel), family( ROOSEVELT Ambrose [phone]) was notified. 2 chest x-ray before and after intubation showed pulmonary edema First set of troponin was negative and EKG showed tachycardia possible A. fib/ aflutter with ventricular pacing, St-T section were not optimal for evaluation Assessment and plan #Acute respiratory failure possibly due to pulmonary edema combination with COPD / -Total IV Lasix of 80 mg was given -We will follow input and output closely -Patient is intubated we sedated the patient with fentanyl and propofol drip SAS 3 -CXR and ABG in the morning -1 time dose of Solu-Medrol 125 MG -We will follow cardiology and pulmonology note tomorrow -Serial EKG and troponin 3 -Patient already got Xarelto for tonight we will consider restarting heparin tomorrow -1 time dose of vancomycin and ceftadizime and discontinue Augmentin for now consider restaring tomorrow/check blood culture and sputum culture -continue TRC nebs History of A. fib -continue amiodarone and Cardizem K 5.8 -Give Kayexalate 60, calcium gluconate, insulin and glucose and recheck in 4 AM Full code, intubated, if needed Tylenol for pain, NPO Problem List: 1. ATRIAL FIBRILATION 2. CHF (congestive heart failure) Pain Ratin Pain Location: unable to assess Pain Goal: Pain 4 or less Pain Plan: same Tomorrow's Labs & Rationales: icu budnel cbc
--- NOTE | 2016-08-10 02:41 | NUR ---
TRANSFER ACCEPTANCE: 2109 [facility] FOR >RESP DISTRESS.PT WAS DIAPHORETIC, UPRIGHT POSITION ON THE BED, ON 100% NRB POX UNABLE TO CAPTURE. TRANSFER PT SAFELY ONTO THE BED. HOOKED UP ON THE EXTENSION SERVICE ADVISOR. PT REC'D LASIX 20MG IVP IN 1NORTH & ADDITIONAL 20MG IV & SOLUMEDROL IV 125MG IV GIVEN SEE EMAR. ABG PRIOR 7.41/37/74/94/23. CALLED ANESTHSIA TO INTUBATE. LCW PACED W/DEFIB, ON THE MONITOR UNDERLINING AFIB HR VARIES 50-100'S AT TIMES SWITCHES BUNDLES. SBP 100'S CORRELATING TO BOTH CUFFS. INC OF LG AMT OF URINE. PER DR. LEONID BRODY PLACED ORDERS. FC INSERTED BY DELVIN MELGAR. VERY LITTLE U/O. UA/UC OBTAINED & SENT. SBP 100'S CORRELATING TO BOTH CUFFS. 2139 DIRECT SERVICE WORKER TIO INTUBATED PT W/#8/22CM. RT GALINA & MAILE TAPED THE ETT R SIDE PLACED OGT WITH SOME DIFFICULTIES. RT GALINA HAD TO USED THE LARYNGOSCOPE, RT STATED HAD ENLARGED EPIGLOTTIS PLACED THE OGT IN. PLACEMENT OF THE OGT PRESENTBY AUSCULTATION. STAT CXR DONE. PENDING FOR RESULTS. SOFT WRIST RESTRAINTS PLACED. ON VENT AC MODE 20/VT 500/ FIO2 100%/PEEP 5. DE PAZ COLOR TK SECRETION FROM ETT. ORALLY SUCTION MOD AMT. 2230 STAT LABS & CORRAL CX. DONE & SENT 2300 LABS OBTAINED. K 5.8, BNP [address]22. DR. LEONID DUNN ORDERED. 1 AMP D50, 10U REG INSULIN, CA GLUCONATE & SPS PO GIVEN SEE EMAR. OGT IN THE STOMACH ABLE TO USE THE OGT. CXR SHOWS PUL EDEMA/CHF W/MARY PULM EDEMA. STARTED ON FENT GTT @50MCG/HR & PROPOFOL GTT 10MCG/KG/MIN. PT MORE COMFORTABLE & RESP STATUS DECREASE. OGT TO LWS UNDIGESTED LIQUIDY D/C IN THE CANNISTER. 0100 POOR U/O VIA FC. DR. RUBALCAVA AT BEDSIDE. ADVANCE REPOSITION FC & BLADDER SCAN 0ML 0200 COMPLETE BED BATH GIVEN. LESS DIAPHORETIC. POX 100%, LS DIMINISHED THROUGHOUT THE LUNG LOBES. CONT TO MONITOR.
[2016-08-10 04:57] LABS: ABSOLUTE BASOPHIL COUNT 0 /CUMM (0.0-0.2); ABSOLUTE EOSINOPHIL COUNT 0 /CUMM (0.0-0.7); ABSOLUTE GRANULOCYTE CT 15.1 /CUMM (1.4-6.5); ABSOLUTE LYMPH COUNT 0.4 /CUMM (1.2-3.4); ABSOLUTE MONOCYTE COUNT 0.2 /CUMM (0.10-0.60); BASOPHIL % 0 % (0.0-2.0); EOSINOPHIL % 0 % (0-5); GRANULOCYTE % 96.7 % (42.2-75.2); MEAN CORPUSCULAR HGB 26.6 PG (27.0-31.0); MEAN CORPUSCULAR HGB CONC 32.5 G/DL (33.0-37.0); MEAN CORPUSCULAR VOLUME 81.9 FL (80.0-94.0); MEAN PLATELET VOLUME 6.7 FL (7.4-10.4); PLATELET COUNT 315 /CUMM (130-400); RBC DISTRIBUTION WIDTH 17.3 % (11.5-14.5); RED BLOOD CELL CT 4.13 /CUMM (4.70-6.10); WHITE BLOOD CELL COUNT 15.6 /CUMM (4.8-10.8)
[2016-08-10 05:10] LABS: HEMATOCRIT 33.8 % (42-52)
--- NOTE | 2016-08-10 06:30 | NUR ---
PER RN DICHELSEY PACKING TO NOSE WAS THERE PRIOR TO ADMITTED TO HOSPITAL 08/06. REMAIN C/D/I. NO BLEEDING NOTED. FIO2 <80% POX 99%. ANOTHER CXR DONE. CONT TO MONITOR.
--- NOTE | 2016-08-10 07:11 | RADIOLOGY REPORT ---
EXAMINATION: XR PORTABLE CHEST CLINICAL INFORMATION: Intubated, follow-up. COMPARISON: 08/09/2016. TECHNIQUE: Portable frontal view of the chest was obtained. FINDINGS: Limited by portable technique. Endotracheal tube is approximately 4 cm above the ana. NG tube courses below the diaphragm and below the inferior margin of the image. Left subclavian dual-lead pacer. Cardiac silhouette enlarged stable. Hazy airspace disease in the left midlung, right lower lung, and consolidation at the left base are all unchanged. IMPRESSION: Endotracheal tube 4 cm above the ana. NG tube passes to the stomach. No improvement in severe pulmonary edema.
[2016-08-10 08:00] VITALS: BP 100/76
--- NOTE | 2016-08-10 08:06 | Cons- CRCU ---
General Information and HPI Allergies/Medications Allergies: Coded Allergies: NO KNOWN ALLERGIES (UNKNOWN 08/10/16) Home Med List: Albuterol Sulfate 2.5 MG/3 ML (0.083 %) VIAL.NEB 1 Vial INH/ASHLEY TID PRN wheezing Albuterol Sulfate (Ventolin Hfa) 18 GM HFA.AER.AD 2 PUF INH Q6P PRN SHORTNESS OF BREATH Allopurinol 100 MG TABLET 1 TAB PO DAILY GOUT (Reported) Amiodarone HCl 200 MG TABLET 1 TAB PO DAILY AFIB (Reported) Amlodipine Besylate (Norvasc) 5 MG TABLET 1 TAB PO DAILY HTN (Reported) Amoxicillin/Clavulanate Potass (Amox-Clav 875-125 MG Tablet) 875 MG-125 MG TABLET 1 TAB PO Q12 EPISTAXIS AND NASAL PACKING Diltiazem HCl (Diltiazem 12HR ER) 120 MG CAP.ER.12H 1 CAP PO DAILY HEART ( Reported) Fluticasone/Vilanterol (Breo Ellipta 100-25 Mcg INH) 100 MCG-25 MCG/DOSE BLST.W.DEV 1 PUFF INH DAILY BREATHING PROBLEMS (Reported) Furosemide (Lasix) 80 MG TABLET 1 TAB PO DAILY Diuretic Labetalol HCl 200 MG TABLET 1 TAB PO BID BP (Reported) Losartan Potassium (Cozaar) 25 MG TABLET 0.5 TAB PO DAILY HEART (Reported) Magnesium Oxide 400 MG TABLET 1 TAB PO DAILY SUPPLEMENT (Reported) Metformin HCl 1,000 MG TABLET 1 TAB PO BID DM (Reported) Multivit-Min/FA/Lycopen/Lutein (Centrum Silver Tablet) 0.4 MG-300 MCG-250 MCG TABLET 1 TAB PO DAILY VITAMIN SUPPORT (Reported) Pravastatin Sodium 80 MG TABLET 1 TAB PO DAILY HLD (Reported) Prednisone 5 MG TABLET 1 TAB PO DAILY GOUT (Reported) Tamsulosin HCl (Flomax) 0.4 MG CAP.ER.24H 1 CAP PO DAILY PROSTATE (Reported) Tiotropium Jolley (Spiriva) 18 MCG CAP.W.DEV 1 CAP INH DAILY COPD (Reported) Tramadol HCl 50 MG TABLET 1 TAB PO Q12P PRN headcahe and nasal congestion Vitamin B Complex (B Complex) 1 EACH TABLET 1 TAB PO DAILY VITAMIN SUPPORT ( Reported) Past History Travel History Traveled to [place] past 21 day No Medical History Blood Transfusion Hx: Yes Neurological: NONE EENT: epistaxis, HEARING LOSS Cardiovascular: AFIB, CHF, hypertension, hyperlipidemia, STENTS x 5 LCW PACER/ DEBRILLATOR Respiratory: COPD, pneumonia Gastrointestinal: NONE Hepatic: NONE Renal: NONE Musculoskeletal: gout, osteoarthritis Psychiatric: NONE Endocrine: diabetes Blood Disorders: NONE Cancer(s): NONE MOLTEN IRON POURER/Reproductive: 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 Relation not specified for: Fam hx-ischem heart disease Fam hx-ischem heart disease Psychosocial History Who Do You Live With? spouse Services at Home: None Primary Language: Welsh Smoking Status: Former Smoker Functional Ability ADLs Independent: dressing, eating, toileting, bathing. Ambulation: independent IADLs Independent: shopping, housework, finances, food prep, telephone, transportation , medication admin. Assessment/Plan Consult Acknowledgment - Thank you for your consult request.
--- NOTE | 2016-08-10 08:56 | Transfer of Care Summary ---
Hospital Course Course Hospital Course: Mr Caldwell is a 76-year-old man who is known to be in his usual state of health until a week ago. He has a past medical history of recurrent nosebleeds/ epistaxis (one year ago), atrial fibrillation on Xarelto, coronary artery disease (history of multiple stents), implantation of pacemaker/defibrillator, COPD. He was recently treated at [facility] for epistaxis with nasal packing. After hemostasis, he was discharged ON AUGUST 04 with the recommendation to see his ENT for further management. After 4 days of nasal packing in place, it was removed by his ENT surgeon in his office on August 06. At that time, he was found to be hypotensive. He also complained of dizziness, with no loss of consciousness. Reported several episodes of dizziness in the last 1 week, especially after getting up from a seated position. He was sent directly from ENT office to [place] ER for further investigation. At the time of admission, vitals temperature 98.6, pulse rate 73, respiration 20 , blood pressure 100/57 (improved to 133/63). Lab findings indicated leukocytosis WBC 17.0 with granulocytosis 91.3, hemoglobin 8.7 (baseline 9.7 on 08/04), platelets 236, sodium 132, normal potassium, abnormal kidney function BUN 52, elevated serum creatinine 2.6 (baseline 1.8), normal liver function. Radiological findings-chest x-ray did not reveal any signs of consolidation. Orthostatic vitals positive in the ED. EKG revealed atrial sensed ventricular paced rhythm with no ST-T wave changes. Echocardiogram 2016-LVEF 55-60%, with mild posterior lateral hypokinesis, elevated right ventricular pressure upto 55 mm( ? COPD ). Urinalysis revealed elevated urine protein, multiple hyaline casts and granular casts likely from diabetic nephropathy. Urine cultures and blood cultures were drawn. HOSPITAL COURSE He was admitted on telemetry floor as observation. ENT was called. This patient had only mild oozing from left nares. Resident spoke with Dr. Miladys Farnsworth over the phone. She thought that nasal packing was removed too soon. She recommended Afrin nasal spray 3 puffs twice a day and avoid blowing of nose. She also stated that if patient is going to be discharged next day then she will see him in her office in afternoon in case he needs any further cauterization. For symptomatic anemia he was given 2 units of blood transfusion in ER. His Augmentin was continued on admission. Cardio was consulted as xarelto was still on hold. He recommended to continue holding Xarelto until epistaxis resolves. Later on patient was started on IV heparin drip. Plan was if patient does not bleed on heparin drip for 24 hours then we will switch him on Xarelto. Next day patient did not have any episode of bleeding through the nose. His IV heparin was discontinued and he was started on xarelto. During the course of hospitalization patient had short runs of V. tach. His electrolytes were repleted. He was made Full admission after 3 days. Patient had acute on chronic kidney disease. Creatinine was 2.6 on admission. His Lasix and losartan were held on admission due to FIORDALIZA. He was given IV fluids. Patient had a rapid response on August 09 as he was having difficulty breathing and he desaturated on room air. Saturations were fluctuating from 90% to 75% on 100% nonrebreather. B/L lung auscultation revealed decreased air entry, B/L Coarse rhonchi and exp wheezes heard in all areas. Cardio was consulted. He was given 40 mg IV Lasix. Chest x-ray showed congestive heart failure and flash pulmonary edema. He was transferred to ICU and intubated emergently. Complications: Acute hypoxic respiratory failure status post intubation and mechanical ventilation Assessment/Plan: as above
--- NOTE | 2016-08-10 09:03 | Cons- Pulmonary ---
General Information and HPI Consulting Request Date of Consult: 08/10/16 Requested By: med team History of Present Illness: This is a gentleman who was admitted here recently for significant epistaxis. He does have significant history of atrial fibrillation, diastolic heart disease , was recently on anticoagulation came in with significant epistaxis. His anticoagulation was held and he was packed on both sides of his nose and his epistaxis was apparently under control. He also did have some evidence of cough with week productive of light sputum. Yesterday he was in his usual state of health. However in the evening use having difficulty breathing and he was significantly hypoxemic. An ABG done at that time did reveal that he was in acute hypoxemic respiratory failure and the patient subsequently was intubated as noninvasive ventilation could not be done. Hence this consult. When I saw him he was intubated uncomfortable was on 60% FiO2 saturating 99%. He appeared comfortable on low-dose propofol and was on fentanyl. His chest x-ray done at that time did show that he was in significant pulmonary edema and he continued to be in pulmonary edema this morning. He has been receiving Lasix since yesterday and has had minimal urine output. No other history could be obtained. SIGNIFICANT DATA Patient does have chronic kidney disease and his baseline creatinine was around 1.5-1.8 and his creatinine was 2.1 there was no anion gap. His proBNP was 20,800 His white count was elevated at 15.6 prior to that was 19.3 and he had received steroids and 96% granulocytes there was no eosinophils. Patient was off anticoagulation. His INR was 1.2 upon admission His blood gas reviewed which showed 736/35/180 on 80% Chest x-ray showed severe pulmonary edema. Chest x-ray on the showed no acute intrathoracic process chest x-ray on the showed severe pulmonary edema. His troponin was not elevated His recent echocardiogram done in end of June showed 55-60% ejection fraction posterior lateral hypokinesis moderate pulmonary hypertension. His past history includes significant COPD, coronary artery disease with previous, biventricular ICD, hypertension, diastolic heart failure, moderate to severe pulmonary hypertension, mitral regurgitation, diabetes, hearing loss, gout, [id number] smoking history quit in 2013. Previously has had MRSA. He also did have a right middle lobe bronchiectasis from recurrent pneumonia and mild aortic aneurysm. His ventilator settings reviewed ventilator settings reviewed patient was on 500 mL tidal volume on 60%. Appeared comfortable on low-dose fentanyl and propofol ROs could not be obtain Allergies/Medications Allergies: Coded Allergies: NO KNOWN ALLERGIES (07/12/15) Home Med List: Albuterol Sulfate 2.5 MG/3 ML (0.083 %) VIAL.NEB 1 Vial INH/ASHLEY TID PRN wheezing Albuterol Sulfate (Ventolin Hfa) 18 GM HFA.AER.AD 2 PUF INH Q6P PRN SHORTNESS OF BREATH Allopurinol 100 MG TABLET 1 TAB PO DAILY GOUT (Reported) Amiodarone HCl 200 MG TABLET 1 TAB PO DAILY AFIB (Reported) Amlodipine Besylate (Norvasc) 5 MG TABLET 1 TAB PO DAILY HTN (Reported) Amoxicillin/Clavulanate Potass (Amox-Clav 875-125 MG Tablet) 875 MG-125 MG TABLET 1 TAB PO Q12 EPISTAXIS AND NASAL PACKING Diltiazem HCl (Diltiazem 12HR ER) 120 MG CAP.ER.12H 1 CAP PO DAILY HEART ( Reported) Fluticasone/Vilanterol (Breo Ellipta 100-25 Mcg INH) 100 MCG-25 MCG/DOSE BLST.W.DEV 1 PUFF INH DAILY BREATHING PROBLEMS (Reported) Furosemide (Lasix) 80 MG TABLET 1 TAB PO DAILY Diuretic Labetalol HCl 200 MG TABLET 1 TAB PO BID BP (Reported) Losartan Potassium (Cozaar) 25 MG TABLET 0.5 TAB PO DAILY HEART (Reported) Magnesium Oxide 400 MG TABLET 1 TAB PO DAILY SUPPLEMENT (Reported) Metformin HCl 1,000 MG TABLET 1 TAB PO BID DM (Reported) Multivit-Min/FA/Lycopen/Lutein (Centrum Silver Tablet) 0.4 MG-300 MCG-250 MCG TABLET 1 TAB PO DAILY VITAMIN SUPPORT (Reported) Pravastatin Sodium 80 MG TABLET 1 TAB PO DAILY HLD (Reported) Prednisone 5 MG TABLET 1 TAB PO DAILY GOUT (Reported) Tamsulosin HCl (Flomax) 0.4 MG CAP.ER.24H 1 CAP PO DAILY PROSTATE (Reported) Tiotropium [place] (Spiriva) 18 MCG CAP.W.DEV 1 CAP INH DAILY COPD (Reported) Tramadol HCl 50 MG TABLET 1 TAB PO Q12P PRN headcahe and nasal congestion Vitamin B Complex (B Complex) 1 EACH TABLET 1 TAB PO DAILY VITAMIN SUPPORT ( Reported) Review of Systems Review of Systems Constitutional: Reports: see HPI. 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 Relation not specified for: Fam hx-ischem heart disease Fam hx-ischem heart disease Psychosocial History Who Do You Live With? spouse Services at Home: None Primary Language: Danish Smoking Status: Former Smoker Functional Ability ADLs Independent: dressing, eating, toileting, bathing. Ambulation: independent IADLs Independent: shopping, housework, finances, food prep, telephone, transportation , medication admin. Exam & Diagnostic Data Last 24 Hrs of Vital Signs/I&O Vital Signs Date Time Temp Pulse Resp B/P B/P Pulse O2 O2 Flow FiO2 Mean Ox Delivery Rate 08/10 0817 60 08/10 0542 80 08/10 0424 80 08/10 0400 100 Ventilator 80% 08/10 0035 100 08/10 0000 100 Ventilator 100% 08/09 2145 100 08/09 2030 97.9 110 30 138/80 90 Venti Mask 30% 08/09 2010 88 Room Air Room Air 08/09 1600 98.3 99 20 140/80 92 Room Air 08/09 1016 156/72 08/09 1016 156/72 Intake & Output 08/10 1600 08/10 0800 08/10 0000 Intake Total 474 0 Output Total 400 30 Balance 74 -30 Intake, IV 474 0 Intake, Oral 0 0 Number 0 0 Bowel Movements Output, 200 Gastric Drainage Output, Urine 200 30 Last 48 Hrs of Labs/[place]: Laboratory Tests 08/10/16 0600: Sodium Cancelled, Potassium Cancelled, Chloride Cancelled, Carbon Dioxide Cancelled, Anion Gap Cancelled, BUN Cancelled, Creatinine Cancelled, BUN/ Creatinine Ratio Cancelled 08/10/16 0530: pH 7.36, pCO2 35, pO2 180 H, HCO3 19 L, ABG O2 Sat (Measured) 99.0, P-50 (Temp Corrected) N, Carboxyhemoglobin 0.3 L, O2 Concentration % 80, Respiration Rate 20, O2 Delivery Method VENT, Vent Mode A/C, Expiratory Pressure 5, Tidal Volume 500, Phlebotomy Draw Site RIGHT BRACHIAL 08/10/16 0440: Anion Gap 9, Estimated GFR 31 L, Glucose 207 H, Calcium 8.5, Phosphorus 3.4, Magnesium 2.1, Total Bilirubin 0.4, AST 31, ALT 34, Troponin I 0.07, Albumin 3.0 L, CBC w Diff NO MAN DIFF REQ, RBC 4.13 L, MCV 81.9, MCH 26.6 L, RDW 17.3 H, MPV 6.7 L, Gran % 96.7 H, Lymphocytes % 2.3 L, Monocytes % 1.0 L, Eosinophils % 0, Basophils % 0 L, Absolute Granulocytes 15.1 H, Absolute Lymphocytes 0.4 L, Absolute Monocytes 0.2, Absolute Eosinophils 0, Absolute Basophils 0, PUBS MCHC 32.5 L 08/10/16 0400: Troponin I Cancelled 08/09/16 2250: pH 7.33 L, pCO2 44, pO2 93, HCO3 23, ABG O2 Sat (Measured) 96.0, P-50 (Temp Corrected) N, Carboxyhemoglobin 0.3 L, O2 Concentration % 100%, Temperature 97.1, Respiration Rate 20, O2 Delivery Method ESPRIT VENT, Vent Mode AC, Expiratory Pressure 5, Tidal Volume 500, Phlebotomy Draw Site RIGHT RADIAL 08/09/16 2200: Anion Gap 14, Estimated GFR 35 L, Glucose 165 H, Lactic Acid 1.7, Calcium 8.6, Phosphorus 4.3, Magnesium 2.0, Total Bilirubin 0.4, AST 29, ALT 36, Pro-B- Natriuretic Pept 09820 H, Albumin 3.3 L, APTT Cancelled 08/09/16 2100: Anion Gap 13, Estimated GFR 39 L, BUN/Creatinine Ratio , Troponin I 0.03, CBC w Diff MAN DIFF ORDERED, RBC 4.90, MCV 82.2, MCH 26.5 L, RDW 17.6 H, MPV 7.0 L, Gran % 87.5 H, Lymphocytes % 6.9 L, Monocytes % 4.9, Eosinophils % 0.4, Basophils % 0.3, Absolute Granulocytes 16.9 H, Absolute Lymphocytes 1.3, Absolute Monocytes 0.9 H, Absolute Eosinophils 0.1, Absolute Basophils 0.1, Platelet Estimate ADEQUATE, Normochromic RBCs VERIFIED, Stomatocytes 1+, PUBS MCHC 32.3 L 08/09/162034: pH 7.41, pCO2 37, pO2 74 L, HCO3 23, ABG O2 Sat (Measured) 94.0 L, P-50 (Temp Corrected) N, Carboxyhemoglobin 0.2 L, O2 Concentration % 100%, Temperature 97.9, O2 Delivery Method NRB, Phlebotomy Draw Site RIGHT BRACHIAL 08/09/16 1045: APTT 64 H 08/09/16 0350: Anion Gap 10, Estimated GFR 33 L, BUN/Creatinine Ratio 22.5, Magnesium 2.1, Troponin I 0.04, APTT 78 H, CBC w Diff NO MAN DIFF REQ, RBC 4.03 L, MCV 82.6, MCH 26.9 L, RDW 16.8 H, MPV 7.1 L, Gran % 83.5 H, Lymphocytes % 9.5 L, Monocytes % 5.4, Eosinophils % 1.3, Basophils % 0.3, Absolute Granulocytes 10.2 H, Absolute Lymphocytes 1.1 L, Absolute Monocytes 0.7 H, Absolute Eosinophils 0.2, Absolute Basophils 0, PUBS MCHC 32.6 L 08/08/161824: APTT 54 H Assessment/Plan Impression/Plan: General Appearance: Intubated mildly sedated patient is appropriately following all commands bilateral nasal packing noted Skin Temp/Moisture Exam: Skin appears clear Cardiovascular: tachycardia, mild systolic murmur Lungs: Bilateral crackles with mild wheezing Abdomen: Normal Bowel Sounds, Soft No significant edema noted Moves all extremities Medications reviewed IMPRESSION This is a gentleman with paroxysmal atrial fibrillation on xeralto, significant COPD, on chronic anticoagulation as well, biventricular pacer for a previous wide-complex rhythm, previous coronary artery disease, who came in with significant epistaxis with bilateral packing other, suddenly went into acute hypoxemic respiratory failure requiring mechanical ventilation as he was unable to be given noninvasive ventilation due to bilateral nasal packing. He does also have significant pulmonary hypertension, mitral regurgitation, diabetes, previous gout and osteoarthritis. He does have significant COPD who is not currently on 24-hour oxygen with [id number] smoking history who has quit smoking few yrs ago now here in the ICU with the following issues. * Acute hypoxemic respiratory failure due to related to acute pulmonary edema in a gentleman with preserved ejection fraction with the no significant elevation in troponin with Pafib on amiodarone and was on anticoag (held tempororily for a short time for epistaxis) with biventricular pacer, consistent with acute diastolic heart failure with very significantly elevated proBNP. * Significant bilateral epistaxis with nasal packing * Sig COPD with a right middle lobe bronchiectasis from his previous pneumonia with MRSA colonization. He also has been wheezing consistent with cardiac asthma with COPD exacerbation related to fluid overload * Paroxysmal atrial fibrillation with anticoagulation before, on amiodarone with biventricular pacer. 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 * Hypertension, gout, previous high blood sugar, previous gout. * Mild aortic aneurysm * BPH on Flomax RECOMMENDATION * Continue mechanical ventilator * Increased at a volume to 550 to speak pressure is less than 30 * [id number] nebulizer * Can start him on IV heparin without a bolus * Sputum culture * Solu-Medrol 40 mg every 12 and can hold prednisone while he is on Solu-Medrol * Proton pump inhibitor * Low-dose fentanyl and propofol if needed. * Discontinue tramadol * [place] catheter * Hold Flomax for now * Hold Cardizem if his blood pressure is not more than 120 * Intravenous Lasix if tolerated 60 mg times one dose * Start him on IV Unasyn pending sputum culture * Given one dose of vancomycin Patient is critically ill total time spent 45 minutes Consult Acknowledgment - Thank you for your consult request.
--- NOTE | 2016-08-10 12:17 | PN- Resident CRCU ---
Subjective HPI/CRCU Issues: Respiratory failure requiring intubation Pulmonary edema History of atrial fibrillation Epistaxis Day 2 of intubation with the tidal volume of 500, PEEP 5 FiO2 24 Hour Events: Sedated with propofol 10 g and fentanyl 12.5, vital signs stable, no acute telemetry event overnight. Objective Vital Signs & I&O Last 8 Hrs of Vitals and I&O: Vital Signs Date Time Temp Pulse Resp B/P B/P Pulse O2 O2 Flow FiO2 Mean Ox Delivery Rate 08/10 1138 45 08/10 0854 55 08/10 0817 60 08/10 0800 97 Ventilator 80% 08/10 0800 97.4 85 13 100/76 97 Ventilator 80% 08/10 0542 80 08/10 0424 80 08/10 0400 100 Ventilator 80% 08/10 0035 100 08/10 0000 100 Ventilator 100% 08/09 2145 100 08/09 2030 97.9 110 30 138/80 90 Venti Mask 30% 08/09 2009 88 Room Air Room Air 08/09 1600 98.3 99 20 140/80 92 Room Air Intake & Output 08/10 1600 08/10 0800 08/10 0000 Intake Total 474 0 Output Total 400 30 Balance 74 -30 Intake, IV 474 0 Intake, Oral 0 0 Number 0 0 Bowel Movements Output, 200 Gastric Drainage Output, Urine 200 30 Exam General Appearance: sedated, intubated Ears, Nose, Throat: intact nasal packing. Respiratory: decreased breath sounds Cardiovascular: regular rate/rhythm Gastrointestinal: normal bowel sounds, soft Extremities: normal inspection, normal capillary refill Current Medications: Current Medications Sig/Clare Start time Last Medication Dose Route Stop Time Status Admin Albuterol Sulfate 3 ML TID 08/07 1057 AC 08/10 INH 1334 Albuterol Sulfate 2 PUF Q6P PRN 08/06 2114 AC INH Amiodarone HCl 200 MG DAILY 08/07 1000 AC 08/10 PO 1056 Amoxicillin/ 875 MG BID 08/06 2199 DC 08/09 Clavulanate Potassium PO 08/10 2200 1016 Ampicillin Sodium/ 1,500 MG Q6 08/10 1200 AC 08/10 Sulbactam Sodium IV 1225 Sodium Chloride 100 ML Budesonide/ 2 PUF BID 08/07 1000 AC 08/09 Formoterol Fumarate INH 2010 Calcium Gluconate 1 GM ONCE ONE 08/09 2315 DC 08/09 Sodium Chloride 100 ML IV 08/10 0014 2330 Ceftazidime 1,000 MG ONCE ONE 08/09 2145 HI 08/09 IV 08/09 214 230 Dextrose 25 GM ONCE ONE 08/09 2315 DC 08/09 IV 08/10 2315 232 Diltiazem HCl 120 MG DAILY 08/07 1000 AC 08/10 PO 1056 Fentanyl Citrate 1,000 MCG Q20H 08/10 1700 AC Dextrose/Water 250 ML IV Fentanyl Citrate 1,000 MCG Q12H 08/09 2300 AC 08/09 Dextrose/Water 250 ML IV 08/10 1700 2302 Furosemide 60 MG ONCE ONE 08/10 1045 HI 08/10 IV 08/10 1046 1102 Furosemide 40 MG ONCE ONE 08/09 2245 DC 08/09 IV 08/09 2245 230 Furosemide 20 MG ONCE ONE 08/09 2114 DC 08/09 IV 08/09 Furosemide 20 MG ONCE ONE 08/095 DC 08/09 IV 08/09 Heparin Sodium 25,000 UNIT Q24H 08/10 0900 08/10 (Porcine) IV 1053 Sodium Chloride 500 ML Insulin Aspart 0 TIDAC 08/07 0800 HI 08/09 SC 1655 Insulin Human Regular 0 Q6 08/10 0615 08/10 SC 1200 Insulin Human Regular 10 UNITS ONCE ONE 08/095 DC 08/09 IV 08/10 2315 232 Magnesium Oxide 400 MG DAILY 08/10 1038 08/10 PO 1106 Methylprednisolone 40 MG Q12 08/10 1032 08/10 IV 1058 Methylprednisolone 125 MG ONCE ONE 08/09 2114 HI 08/09 IV 08/09 Non-Formulary 0 SEE ADMIN CRITERIA 08/09 2214 CAN Medication ANY Oxymetazoline HCl 3 SPRAY BID 08/07 1005 HI 08/09 REGIS 2009 Pantoprazole Sodium 40 MG DAILY 08/10 1033 DC IV Pantoprazole Sodium 40 MG DAILY 08/09 2230 08/10 IV 1058 Pravastatin Sodium 80 MG 1700 08/07 1700 AC 08/09 PO 1535 Prednisone 5 MG DAILY 08/07 1000 DC 08/09 PO 1016 Propofol 1,000 MG Q12H 08/09 2300 08/10 N/A 100 ML IV 1106 Propofol 1,000 MG .STK-MED ONE 08/09 2124 DC IV 06/22 2126 Rivaroxaban 15 MG DAILY 08/09 1227 DC 08/09 PO 1535 Sodium Chloride 1,000 ML Q13H 08/09 1545 DC 08/09 IV 08/10 0444 1612 Sodium Polystyrene 60 ML ONCE ONE 08/10 1100 DC 08/10 Sulfonate PO 08/10 1101 1101 Sodium Polystyrene 60 ML ONCE ONE 08/09 2315 DC 08/09 Sulfonate PO 08/09 2316 2328 Tamsulosin HCl 0.4 MG DAILY 08/06 2118 AC 08/10 PO 1057 Tramadol HCl 50 MG Q12P PRN 08/06 2130 DC 08/08 PO 1652 Vancomycin HCl 1,000 MG ONCE ONE 08/09 2145 DC 08/09 Sodium Chloride 250 ML IV 08/09 2244 2306 Impression/Plan Impression/Problem List Impression: This is a 76yo genetleman with past medical history of CHF, A. fib, pacemaker and IVCD was admitted for FIORDALIZA and anemia due to epistaxis, had respiratory distress last night night despite being on 100% nonrebreather mask. CXR obtained was remarkable for pulmonary edema, AG suggested hypoxia. Patient was a candidate for BiPAP as he was presenting with pulmonary edema of cardiac origin. However due to his nasal packings, BiPAP was not feasible and therefore patient had to be intubated. Impression and Plan #Acute hypoxemic respiratory failure requiring intubation. Most probable etiology is pulmonary edema as evident by worsening finding on chest x-ray. There is also a possibility of aspiration as patient has nasal packing from his epistaxis. Does have an elevated proBNP which indicates decompensated heart failure. Continue mechanical ventilation for now, will start Unasyn for suspicion of aspiration. Will await sputum cultures and adjust accordingly. We'll continue Lasix IV 60 mg as tolerated by blood pressure. Follow-up chest x-ray tomorrow morning. #Epistaxis Most likely aggravated by anticoagulant use, controlled after nasal packing. No acute worsening within the past 24 hours. We'll continue with the dissolvable nasal packing and monitor H&H. #History of atrial fibrillation Atlee read controlled with medications held due to borderline low pressure. If patient heart rate increases will consider starting Cardizem drip for target heart rate of 110 oh lower. Started heparin drip and put the Xarelto on hold. Continue amiodarone via OG tube. #History of chronic kidney disease Patient has Percent history of BPH Will hold off Flomax for #Sedation Atlee on propofol and fentanyl with adequate sedation. Patient responded agitation sedation scale is adequate and does not show any clinical signs of increased pain or agitation. Will consider sedation vacation and tapering appropriately based on patient's condition. Problem List: 1. FIORDALIZA (acute kidney injury) 2. COPD (chronic obstructive pulmonary disease) 3. Epistaxis, recurrent 4. Acute respiratory failure with hypoxia Pain Ratin Tomorrow's Labs & Rationales: ICU LAB Plan DVT/Prophylaxis: pharmacological
--- NOTE | 2016-08-10 13:05 | PN- Cardiology ---
Subjective Subjective: Apparently, the patient's respiratory status decompensated yesterday afternoon and he was transferred to the ICU. Due to his nasal packing, BiPAP was not an option and the patient was intubated. He is currently sedated and intubated in the ICU. Hemodynamically stable. He remains in atrial fibrillation with episodes of increased ventricular rate. Objective Vital Signs and I&Os Vital Signs Date Time Temp Pulse Resp B/P B/P Pulse O2 O2 Flow FiO2 Mean Ox Delivery Rate 08/10 1200 100 Ventilator 55% 08/10 1138 45 08/10 0854 55 08/10 0817 60 08/10 0800 97 Ventilator 80% 08/10 0800 97.4 85 13 100/76 97 Ventilator 80% 08/10 0542 80 08/10 0424 80 08/10 0400 100 Ventilator 80% 08/10 0035 100 08/10 0000 100 Ventilator 100% 08/09 2145 100 08/09 2030 97.9 110 30 138/80 90 Venti Mask 30% 08/09 2009 88 Room Air Room Air 08/09 1600 98.3 99 20 140/80 92 Room Air Intake & Output 08/10 1600 08/10 0800 08/10 0000 08/09 1600 08/09 0800 08/09 0000 Intake Total 474 0 1270 1270 1886 Output Total 400 30 Balance 74 -30 1270 1270 1886 Intake, IV 474 0 472 866 0381 Intake, Oral 0 0 720 450 822 Number 0 0 1 Bowel Movements Output, 200 Gastric Drainage Output, Urine 200 30 Current Medications: Current Medications Sig/Clare Start time Last Medication Dose Route Stop Time Status Admin Albuterol Sulfate 3 ML TID 08/07 1057 AC 08/10 INH 0828 Albuterol Sulfate 2 PUF Q6P PRN 08/065 AC INH Amiodarone HCl 200 MG DAILY 08/07 1000 AC 08/10 PO 1056 Amoxicillin/ 875 MG BID 08/06 2199 DC 08/09 Clavulanate Potassium PO 08/10 2200 1016 Ampicillin Sodium/ 1,500 MG Q6 08/10 1200 AC 08/10 Sulbactam Sodium IV 1225 Sodium Chloride 100 ML Budesonide/ 2 PUF BID 08/07 1000 AC 08/09 Formoterol Fumarate INH 2010 Calcium Gluconate 1 GM ONCE ONE 08/09 2315 DC 08/09 Sodium Chloride 100 ML IV 08/10 0014 2330 Ceftazidime 1,000 MG ONCE ONE 08/09 2145 DC 08/09 IV 08/09 214 2303 Dextrose 25 GM ONCE ONE 08/09 2315 DC 08/09 IV 08/10 2315 232 Diltiazem HCl 120 MG DAILY 08/07 1000 AC 08/10 PO 1056 Fentanyl Citrate 1,000 MCG Q20H 08/10 1700 AC Dextrose/Water 250 ML IV Fentanyl Citrate 1,000 MCG Q12H 08/09 2300 AC 08/09 Dextrose/Water 250 ML IV 08/10 1700 2302 Furosemide 60 MG ONCE ONE 08/10 1045 WV 08/10 IV 08/10 1046 1102 Furosemide 40 MG ONCE ONE 08/09 2245 DC 08/09 IV 08/09 224 230 Furosemide 20 MG ONCE ONE 08/09 2114 DC 08/09 IV 08/09 Furosemide 20 MG ONCE ONE 08/095 DC 08/09 IV 08/09 Heparin Sodium 25,000 UNIT Q24H 08/10 0900 AC 08/10 (Porcine) IV 1053 Sodium Chloride 500 ML Insulin Aspart 0 TIDAC 08/07 0800 WV 08/09 SC 1655 Insulin Human Regular 0 Q6 08/10 0615 08/10 SC 1200 Insulin Human Regular 10 UNITS ONCE ONE 08/095 DC 08/09 IV 08/10 2315 232 Magnesium Oxide 400 MG DAILY 08/10 1038 AC 08/10 PO 1106 Methylprednisolone 40 MG Q12 08/10 1032 08/10 IV 1058 Methylprednisolone 125 MG ONCE ONE 08/09 2114 DC 08/09 IV 08/09 Non-Formulary 0 SEE ADMIN CRITERIA 08/09 2214 CAN Medication ANY Oxymetazoline HCl 3 SPRAY BID 08/07 1005 WV 08/09 REGIS 2009 Pantoprazole Sodium 40 MG DAILY 08/10 1033 DC IV Pantoprazole Sodium 40 MG DAILY 08/09 2230 AC 08/10 IV 1058 Pravastatin Sodium 80 MG 1700 08/07 1700 AC 08/09 PO 1535 Prednisone 5 MG DAILY 08/07 1000 DC 08/09 PO 1016 Propofol 1,000 MG Q12H 08/09 2300 AC 08/10 N/A 100 ML IV 1106 Propofol 1,000 MG .STK-MED ONE 08/09 2124 DC IV 06/22 2126 Rivaroxaban 15 MG DAILY 08/09 1227 DC 08/09 PO 1535 Sodium Chloride 1,000 ML Q13H 08/09 1545 DC 08/09 IV 08/10 0444 1612 Sodium Polystyrene 60 ML ONCE ONE 08/10 1100 DC 08/10 Sulfonate PO 08/10 1101 1101 Sodium Polystyrene 60 ML ONCE ONE 08/09 2315 DC 08/09 Sulfonate PO 08/09 2316 2328 Tamsulosin HCl 0.4 MG DAILY 08/06 2118 AC 08/10 PO 1057 Tramadol HCl 50 MG Q12P PRN 08/06 2130 DC 08/08 PO 1652 Vancomycin HCl 1,000 MG ONCE ONE 08/09 2145 DC 08/09 Sodium Chloride 250 ML IV 08/09 2244 2306 Results Last 48 Hrs of Labs/Mics: Laboratory Tests 08/10/16 0600: Sodium Cancelled, Potassium Cancelled, Chloride Cancelled, Carbon Dioxide Cancelled, Anion Gap Cancelled, BUN Cancelled, Creatinine Cancelled, BUN/ Creatinine Ratio Cancelled 08/10/16 0530: pH 7.36, pCO2 35, pO2 180 H, HCO3 19 L, ABG O2 Sat (Measured) 99.0, P-50 (Temp Corrected) N, Carboxyhemoglobin 0.3 L, O2 Concentration % 80, Respiration Rate 20, O2 Delivery Method VENT, Vent Mode A/C, Expiratory Pressure 5, Tidal Volume 500, Phlebotomy Draw Site RIGHT BRACHIAL 08/10/16 0440: Anion Gap 9, Estimated GFR 31 L, Glucose 207 H, Calcium 8.5, Phosphorus 3.4, Magnesium 2.1, Total Bilirubin 0.4, AST 31, ALT 34, Troponin I 0.07, Albumin 3.0 L, CBC w Diff NO MAN DIFF REQ, RBC 4.13 L, MCV 81.9, MCH 26.6 L, RDW 17.3 H, MPV 6.7 L, Gran % 96.7 H, Lymphocytes % 2.3 L, Monocytes % 1.0 L, Eosinophils % 0, Basophils % 0 L, Absolute Granulocytes 15.1 H, Absolute Lymphocytes 0.4 L, Absolute Monocytes 0.2, Absolute Eosinophils 0, Absolute Basophils 0, PUBS MCHC 32.5 L 08/10/16 0400: Troponin I Cancelled 08/09/16 2250: pH 7.33 L, pCO2 44, pO2 93, HCO3 23, ABG O2 Sat (Measured) 96.0, P-50 (Temp Corrected) N, Carboxyhemoglobin 0.3 L, O2 Concentration % 100%, Temperature 97.1, Respiration Rate 20, O2 Delivery Method ESPRIT VENT, Vent Mode AC, Expiratory Pressure 5, Tidal Volume 500, Phlebotomy Draw Site RIGHT RADIAL 08/09/16 2200: Anion Gap 14, Estimated GFR 35 L, Glucose 165 H, Lactic Acid 1.7, Calcium 8.6, Phosphorus 4.3, Magnesium 2.0, Total Bilirubin 0.4, AST 29, ALT 36, Pro-B- Natriuretic Pept 82000 H, Albumin 3.3 L, APTT Cancelled 08/09/16 2100: Anion Gap 13, Estimated GFR 39 L, BUN/Creatinine Ratio , Troponin I 0.03, CBC w Diff MAN DIFF ORDERED, RBC 4.90, MCV 82.2, MCH 26.5 L, RDW 17.6 H, MPV 7.0 L, Gran % 87.5 H, Lymphocytes % 6.9 L, Monocytes % 4.9, Eosinophils % 0.4, Basophils % 0.3, Absolute Granulocytes 16.9 H, Absolute Lymphocytes 1.3, Absolute Monocytes 0.9 H, Absolute Eosinophils 0.1, Absolute Basophils 0.1, Platelet Estimate ADEQUATE, Normochromic RBCs VERIFIED, Stomatocytes 1+, PUBS MCHC 32.3 L 08/09/162034: pH 7.41, pCO2 37, pO2 74 L, HCO3 23, ABG O2 Sat (Measured) 94.0 L, P-50 (Temp Corrected) N, Carboxyhemoglobin 0.2 L, O2 Concentration % 100%, Temperature 97.9, O2 Delivery Method NRB, Phlebotomy Draw Site RIGHT BRACHIAL 08/09/16 1045: APTT 64 H 08/09/16 0350: Anion Gap 10, Estimated GFR 33 L, BUN/Creatinine Ratio 22.5, Magnesium 2.1, Troponin I 0.04, APTT 78 H, CBC w Diff NO MAN DIFF REQ, RBC 4.03 L, MCV 82.6, MCH 26.9 L, RDW 16.8 H, MPV 7.1 L, Gran % 83.5 H, Lymphocytes % 9.5 L, Monocytes % 5.4, Eosinophils % 1.3, Basophils % 0.3, Absolute Granulocytes 10.2 H, Absolute Lymphocytes 1.1 L, Absolute Monocytes 0.7 H, Absolute Eosinophils 0.2, Absolute Basophils 0, PUBS MCHC 32.6 L 08/08/16 1825: APTT 54 H Assessment/Plan Assessment/Plan Assessment: 1. Atrial fibrillation 2. Acute hypoxemic respiratory failure, likely related to acute on chronic diastolic heart failure. The possibility of underlying aspiration cannot be excluded at this time. 3. COPD 4. Anticoagulated on Xarelto 5. Pacemaker/ICD in situ 6. Coronary artery disease 7. Epistaxis with acute blood loss anemia 8. Episodes of wide complex irregular tachycardia consistent with atrial fibrillation with bundle branch block or aberrancy. Recommendations: -Continue as per the critical care/ICU team.-Weaning as tolerated per Dr. Shell -The patient continues on amiodarone via NG tube. -Other medications, Cardizem, etc. on hold per Dr. Shell -If the patient's heart rate becomes an issue, and the blood pressure would tolerate, I would start IV Cardizem at 2.5 mg per hour for optimizing rate control if tolerated. -If this becomes an issue and blood pressure precludes IV Cardizem, consider low -dose digoxin as an alternative. -Anticoagulation management as per Dr. Shell for now. Continue telemetry? Yes
[2016-08-10 17:38] LABS: PTT 69 SEC (25-37)
--- NOTE | 2016-08-10 18:18 | PN- Att Addend ---
Attending Addendum Attending Brief Note Patient got a blood transfusion yesterday later on that day he became more short of breath, chest x-ray showed crease vascular congestion and patient was transferred to the ICU was given IV diuretics, because of his nasal problems patient could not get BiPAP, instead he ended up intubated at this morning patient is better less congested improved chest x-ray, maybe no evidence of pneumonia patient is already on IV antibiotics patient being followed by cardiology and pulmonary 24 TOTALS 08/10 0000 08/09 0000 Intake Total 2540 3122.0 Output Total 30 Balance 2510 3122.0 Intake, IV 1370 1126.0 Intake, Oral 1170 1996 Number 0 2 Bowel Movements Output, Urine 30 Laboratory Tests 08/10/16 1700: Anion Gap 12, Estimated GFR 29 L, Glucose 187 H, Calcium 8.1 L, Phosphorus 4.8 H, Magnesium 1.9, Total Bilirubin 0.3, AST 22, ALT 36, Albumin 2.8 L, APTT 69 H 08/10/16 0600: Sodium Cancelled, Potassium Cancelled, Chloride Cancelled, Carbon Dioxide Cancelled, Anion Gap Cancelled, BUN Cancelled, Creatinine Cancelled, BUN/ Creatinine Ratio Cancelled 08/10/16 0530: pH 7.36, pCO2 35, pO2 180 H, HCO3 19 L, ABG O2 Sat (Measured) 99.0, P-50 (Temp Corrected) N, Carboxyhemoglobin 0.3 L, O2 Concentration % 80, Respiration Rate 20, O2 Delivery Method VENT, Vent Mode A/C, Expiratory Pressure 5, Tidal Volume 500, Phlebotomy Draw Site RIGHT BRACHIAL 08/10/16 0440: Anion Gap 9, Estimated GFR 31 L, Glucose 207 H, Calcium 8.5, Phosphorus 3.4, Magnesium 2.1, Total Bilirubin 0.4, AST 31, ALT 34, Troponin I 0.07, Albumin 3.0 L, CBC w Diff NO MAN DIFF REQ, RBC 4.13 L, MCV 81.9, MCH 26.6 L, RDW 17.3 H, MPV 6.7 L, Gran % 96.7 H, Lymphocytes % 2.3 L, Monocytes % 1.0 L, Eosinophils % 0, Basophils % 0 L, Absolute Granulocytes 15.1 H, Absolute Lymphocytes 0.4 L, Absolute Monocytes 0.2, Absolute Eosinophils 0, Absolute Basophils 0, PUBS MCHC 32.5 L 08/10/16 0400: Troponin I Cancelled 08/09/16 2250: pH 7.33 L, pCO2 44, pO2 93, HCO3 23, ABG O2 Sat (Measured) 96.0, P-50 (Temp Corrected) N, Carboxyhemoglobin 0.3 L, O2 Concentration % 100%, Temperature 97.1, Respiration Rate 20, O2 Delivery Method ESPRIT VENT, Vent Mode AC, Expiratory Pressure 5, Tidal Volume 500, Phlebotomy Draw Site RIGHT RADIAL 08/09/16 2200: Anion Gap 14, Estimated GFR 35 L, Glucose 165 H, Lactic Acid 1.7, Calcium 8.6, Phosphorus 4.3, Magnesium 2.0, Total Bilirubin 0.4, AST 29, ALT 36, Pro-B- Natriuretic Pept 29748 H, Albumin 3.3 L, APTT Cancelled 08/09/16 2100: Anion Gap 13, Estimated GFR 39 L, BUN/Creatinine Ratio , Troponin I 0.03, CBC w Diff MAN DIFF ORDERED, RBC 4.90, MCV 82.2, MCH 26.5 L, RDW 17.6 H, MPV 7.0 L, Gran % 87.5 H, Lymphocytes % 6.9 L, Monocytes % 4.9, Eosinophils % 0.4, Basophils % 0.3, Absolute Granulocytes 16.9 H, Absolute Lymphocytes 1.3, Absolute Monocytes 0.9 H, Absolute Eosinophils 0.1, Absolute Basophils 0.1, Platelet Estimate ADEQUATE, Normochromic RBCs VERIFIED, Stomatocytes 1+, PUBS MCHC 32.3 L 08/09/162034: pH 7.41, pCO2 37, pO2 74 L, HCO3 23, ABG O2 Sat (Measured) 94.0 L, P-50 (Temp Corrected) N, Carboxyhemoglobin 0.2 L, O2 Concentration % 100%, Temperature 97.9, O2 Delivery Method NRB, Phlebotomy Draw Site RIGHT BRACHIAL 08/09/16 1045: APTT 64 H 08/09/16 0350: Anion Gap 10, Estimated GFR 33 L, BUN/Creatinine Ratio 22.5, Magnesium 2.1, Troponin I 0.04, APTT 78 H, CBC w Diff NO MAN DIFF REQ, RBC 4.03 L, MCV 82.6, MCH 26.9 L, RDW 16.8 H, MPV 7.1 L, Gran % 83.5 H, Lymphocytes % 9.5 L, Monocytes % 5.4, Eosinophils % 1.3, Basophils % 0.3, Absolute Granulocytes 10.2 H, Absolute Lymphocytes 1.1 L, Absolute Monocytes 0.7 H, Absolute Eosinophils 0.2, Absolute Basophils 0, PUBS MCHC 32.6 L 08/08/16 1825: APTT 54 H
--- NOTE | 2016-08-10 19:09 | RADIOLOGY REPORT ---
EXAMINATION: XR PORTABLE CHEST CLINICAL INFORMATION: Follow up pulmonary edema. COMPARISON: 08/10/2016 labeled 0539 hours. TECHNIQUE: Portable frontal view of the chest was obtained. FINDINGS: Endotracheal tube is unchanged in position with its tip 5 cm proximal to the ana. Enteric tube is not well seen on this exam. Left-sided dual lead pacer again noted. A percutaneous pacer lead is also suggested. Patchy opacity in the left lower lung. Greater than right appears largely unchanged, question infiltrate atelectasis or asymmetric edema. IMPRESSION: Largely unchanged.
[2016-08-11] VITALS: BP 132/68
--- NOTE | 2016-08-11 01:17 | NUR ---
PT SLEEPY BUT EASILT AROUSABLE. DENIES PAIN AT THIS TIME INTUBATED AT 40% FIO2, SATURATION 100%. LUNGS SOUND CLEAR. SCANT AMOUNTS OF WHITE SECRETIONS OBTAINED FORM ETT. PACED 60'S, MANUAL BP 132/68. PT ON FENTANYL GTT AT 50MCG, HEAORIN GTT AT 15UNITS, PROPOFOL AT 10UNITS
--- NOTE | 2016-08-11 01:20 | NUR ---
WALTON IN PLACE, ADEQUATE UO NOTED. ACCUCHECK 191, NOVOLIN R 4UNITS SUB Q GIVEN TO RIGHT DELTOID.
[2016-08-11 04:39] LABS: ABSOLUTE BASOPHIL COUNT 0 /CUMM (0.0-0.2); ABSOLUTE EOSINOPHIL COUNT 0 /CUMM (0.0-0.7); ABSOLUTE GRANULOCYTE CT 16.6 /CUMM (1.4-6.5); ABSOLUTE LYMPH COUNT 0.6 /CUMM (1.2-3.4); ABSOLUTE MONOCYTE COUNT 0.7 /CUMM (0.10-0.60); BASOPHIL % 0.1 % (0.0-2.0); EOSINOPHIL % 0 % (0-5); GRANULOCYTE % 92.4 % (42.2-75.2); MEAN CORPUSCULAR HGB 26.2 PG (27.0-31.0); MEAN CORPUSCULAR HGB CONC 31.8 G/DL (33.0-37.0); MEAN CORPUSCULAR VOLUME 82.5 FL (80.0-94.0); MEAN PLATELET VOLUME 7.4 FL (7.4-10.4); PLATELET COUNT 323 /CUMM (130-400); RBC DISTRIBUTION WIDTH 17.3 % (11.5-14.5); RED BLOOD CELL CT 3.88 /CUMM (4.70-6.10)
[2016-08-11 04:53] LABS: PTT 65 SEC (25-37)
[2016-08-11 08:00] VITALS: BP 140/80
--- NOTE | 2016-08-11 08:24 | RADIOLOGY REPORT ---
EXAMINATION: XR PORTABLE CHEST CLINICAL INFORMATION: Pulmonary edema. Aspiration pneumonia. COMPARISON: Previous chest x-rays most recent from yesterday TECHNIQUE: Portable frontal view of the chest was obtained. FINDINGS: Exam is limited. The left lateral lower chest is not included in the [id number]. There is a left subclavian dual chamber pacemaker that is unchanged in position. There is an endotracheal tube with tip 4.5 cm above the ana. There is a nasogastric tube. The tip is not well seen. The cardiac and mediastinal contours are stable. There is pulmonary venous redistribution. There is bilateral mixed alveolar and interstitial disease. There is denser consolidation with loss of the left hemidiaphragm at the left lung base.. This is not appreciably changed. No right pleural effusion or pneumothorax is seen. Evaluation for left pleural effusion or pneumothorax is suboptimal due to patient positioning. IMPRESSION: Satisfactory position of ET tube. Nasogastric tube tip not seen. Stable pulmonary venous redistribution and Interstitial and alveolar disease probably representing pulmonary edema. There is denser airspace disease in the left lung base with loss of the left hemidiaphragm suggestive of superimposed left lower lobe pneumonia or atelectasis.
--- NOTE | 2016-08-11 08:49 | PN- Resident CRCU ---
JOSELO LONGORIA,[facility] 08/11/16 0849: Subjective HPI/CRCU Issues: Afebrile, hemodynamically stable, intubated and mechanically ventilated. Patient is weak, alert and oriented. No acute overnight events were reported. He denies any current active complaints. Tolerated weaning from ventilatory very well Objective Vital Signs & I&O Last 8 Hrs of Vitals and I&O: Vital Signs Date Time Temp Pulse Resp B/P B/P Pulse O2 O2 Flow FiO2 Mean Ox Delivery Rate 08/11 1226 92 134/69 08/11 1200 97 Venti Mask 30% 08/11 1200 99.0 102 20 132/74 97 Venti Mask 30% 08/11 0910 108 155/70 08/11 0809 40 08/11 0800 100 Ventilator 40% 08/11 0800 96.7 110 20 140/80 100 Ventilator 40% 08/11 0615 40 08/11 0400 100 Ventilator 40% 08/11 0251 40 08/11 0104 40 08/11 0000 100 Ventilator 40% 08/11 0000 96.4 68 22 132/68 100 Ventilator 40% 08/10 2300 40 08/10 2038 40 08/10 2000 100 Ventilator 40% 08/10 1618 40 Intake & Output 08/11 1600 08/11 0800 08/11 0000 Intake Total 455 610 Output Total 450 500 Balance 5 110 Intake, IV 455 550 Intake, Other 60 Number 0 Bowel Movements Output, 0 Gastric Drainage Output, Urine 450 500 Exam General Appearance: well developed/nourished, no apparent distress, alert, awake , intubated Head: atraumatic, normal appearance Respiratory: wheezing and mild scattered rhonchi Cardiovascular: regular rate/rhythm Gastrointestinal: soft, non-tender Extremities: normal inspection, no edema Weaning Parameters NIF: 30 Minute Volume: 10.8 Resp rate: 20 Vt: 5591 Heart Rate: 93 Weaning Schedule Start Time: 0815 Minute Volume: 6.5 Resp Rate: 10 Vt: 790 Heart Rate: 104 End Time: 1755 Minute Volume: 9.38 Resp Rate: 12 Vt: 782 Heart Rate: 103 Current Medications: Current Medications Sig/Clare Start time Last Medication Dose Route Stop Time Status Admin Albuterol Sulfate 3 ML TID 08/07 1057 AC 08/11 INH 1403 Albuterol Sulfate 2 PUF Q6P PRN 08/06 2115 AC INH Amiodarone HCl 200 MG DAILY 08/07 1000 AC 08/11 PO 0910 Ampicillin Sodium/ 1,500 MG Q6 08/10 1200 AC 08/11 Sulbactam Sodium IV 1226 Sodium Chloride 100 ML Budesonide/ 2 PUF BID 08/07 1000 AC 08/09 Formoterol Fumarate INH 2009 Diltiazem HCl 120 MG DAILY 08/07 1000 AC 08/11 PO 1226 Fentanyl Citrate 1,000 MCG Q20H 08/10 1700 DC 08/10 Dextrose/Water 250 ML IV 2012 Fentanyl Citrate 1,000 MCG Q12H 08/09 2300 DC 08/09 Dextrose/Water 250 ML IV 08/10 1700 2302 Furosemide 40 MG ONCE ONE 08/11 1500 DC 08/11 IV 08/11 1501 1504 Heparin Sodium 25,000 UNIT Q24H 08/10 0900 AC 08/10 (Porcine) IV 1053 Sodium Chloride 500 ML Insulin Aspart 0 TIDAC 08/11 1200 AC 08/11 SC 1226 Insulin Human Regular 4 UNITS .STK-MED ONE 08/11 0625 DC IV 08/11 0626 Insulin Human Regular 4 UNITS .STK-MED ONE 08/11 0031 DC IV 08/11 0032 Insulin Human Regular 0 Q6 08/10 0615 DC 08/11 SC 0631 Magnesium Oxide 400 MG DAILY 08/10 1038 AC 08/11 PO 0910 Methylprednisolone 40 MG Q12 08/10 1032 AC 08/11 IV 0911 Pantoprazole Sodium 40 MG DAILY 08/09 2230 AC 08/11 IV 0911 Potassium Chloride 40 MEQ ONCE ONE 08/11 1330 DC 08/11 PO 08/11 1331 1504 Pravastatin Sodium 80 MG 1700 08/07 1700 AC 08/10 PO 1551 Propofol 1,000 MG Q12H 08/09 2300 DC 08/11 N/A 100 ML IV 0019 Tamsulosin HCl 0.4 MG DAILY 08/06 2118 AC 08/11 PO 1226 Impression/Plan Impression/Problem List Impression: 76/M with PMH of CHF, A. fib, pacemaker and IVCD who was admitted for FIORDALIZA and anemia due to epistaxis during admission he developed respiratory distress that required transfer to ICU. CXR obtained was remarkable for pulmonary edema, ABG suggested hypoxia. Patient was a candidate for BiPAP as he was presenting with pulmonary edema of cardiac origin. However due to his nasal packings, BiPAP was not feasible and therefore patient had to be intubated. #Acute hypoxemic respiratory failure Most probable etiology is pulmonary edema as evident by worsening finding on chest x-ray. There is also a possibility of aspiration as patient has nasal packing from his epistaxis. Does have an elevated proBNP which indicates decompensated heart failure. * Patient did well on weaning trial and was extubated * We'll continue Unasyn * Pending sputum culture * We will start diuresis as tolerated #Epistaxis Most likely aggravated by anticoagulant use, controlled after nasal packing. No acute worsening within the past 24 hours. * CBC daily #History of atrial fibrillation Continues to have paroxysms of atrial fibrillation with rapid ventricular response rates. * Continue amiodarone * Continue heparin drip * If low blood pressure becomes an issue, consider starting digoxin. * If patient heart rate increases will consider starting Cardizem drip for target heart rate of 110 or lower * Xarelto on hold. * We repeat troponin #Acute kidney injury and chronic kidney disease * Creatinine worsened today she is most likely secondary to fluid overload given history of CHF elevated BUN the high BUN/creatinine ratio. * We will diurese as tolerated * We will consult nephrology #BPH * Will hold off Flomax DVT prophylaxis on heparin Full liquids diet Full code Problem List: 1. ATRIAL FIBRILATION 2. Epistaxis 3. Anemia Pain Ratin Tomorrow's Labs & Rationales: cbc and icu bundl Plan DVT/Prophylaxis: pharmacological Taylor MEREDITH MD 08/11/16 0908: Attending MD Review Statement Attending Sign Off Attending Cosign Statement: I have: examined this patient, reviewed [facility] EMR data, personally reviewd images, discussd w/resident/PA/BRINE SUPERVISOR, agreed w/resident/PA/BRINE SUPERVISOR, amended to note. Other Findings: I have personally seen and examined the patient. I agree with the resident's assessment and plan as detailed above. The patient will started on a weaning trial, and we will extubate if the parameters are acceptable. We will continue all supportive care. DONALD UGARTE MD 08/11/16 1132: Attending MD Review Statement Attending Sign Off Reason for Cont Hospitalizatn: Resolving congestive heart failure and history of refractory bleeding. Adverse Outcomes if Pt Leaves: Recurrent CHF Other Findings: Mr. Caldwell was interviewed and examined. He has been recently extubated and appears to be stable on Ventimask oxygen at present. And queried he has no complaints. He is afebrile with stable O2 saturation. He is mildly tachycardic. Pulmonary exam is notable for some musical expiratory wheezing. Cardiovascular exam is unchanged. Abdominal exam reveals active bowel sounds and is soft and nontender. WBC is increased today but H&H is stable. His potassium is 3.8. Chest x-ray is notable for interstitial disease and possibly left lower lobe infiltrative disease. Cultures remain negative. Patient is status post intubation and mechanical ventilation for congestive heart failure. He has also had an episode of refractory bleeding which appears to have resolved. We should continue to monitor his respiratory status and treat his heart failure with diuretics. His CBC should be followed closely and his antibiotics continued. We should attempt to maintain his potassium greater than 4.
--- NOTE | 2016-08-11 11:48 | NUR ---
0821: PATIENT PLACED ON WEAN TRIAL AT THIS TIME 5/6 40%, TOLERATED WELL. 0915: PLACED ON T-PIECE, SAT 94% TOLERATING WELL 1045: ABG WNL, EXTUBATED AND PLACED ON 30% VENTI MASK DUE TO NASAL PACKING. TOLERATED WELL, SAT 94%, BEDSIDE SWALLOW EVAL COMPLETED BY MD JOSUE, FULL LIQUID DIET ORDERED PER PATIENT REQUEST. PO MEDS ABLE TO BE GIVEN AT THIS TIME. WILL MONITOR.
[2016-08-11 12:00] VITALS: BP 132/74
--- NOTE | 2016-08-11 12:01 | NUR ---
PROPOFOL TURNED OFF AT [address] MEREDITH, SAS 4, PATIENT WRITING DOWN COMPLETE SCENTENCES ON PAPER WITH PEN. FENTANYL TURNED DOWN FROM 50MCG TO 25 MCG AT 0815 0915: FENTANYL TITRATED DOWN TO 12.5MCG PER MD JOSUE AT THIS TIME. 1045: FENTANYL TURNED OFF WITH EXTUBATION, PATIENT DENIES PAIN AT THIS TIME. WILL MONITOR.
--- NOTE | 2016-08-11 14:12 | PN- Cardiology ---
Subjective Subjective: Mr. Caldwell's respiratory status decompensated on 08/09/2016 prompting transfer to the ICU. Nasal packing for his epistaxis precluded the option of BiPAP and he transiently required intubation. He is currently improved, extubated, and hemodynamically stable, but continues to have paroxysms of atrial fibrillation with rapid ventricular response rates Objective Vital Signs and I&Os Vital Signs Date Time Temp Pulse Resp B/P B/P Pulse O2 O2 Flow FiO2 Mean Ox Delivery Rate 08/11 1226 92 134/69 08/11 1200 97 Venti Mask 30% 08/11 1200 99.0 102 20 132/74 97 Venti Mask 30% 08/11 0910 108 155/70 08/11 0809 40 08/11 0800 100 Ventilator 40% 08/11 0800 96.7 110 20 140/80 100 Ventilator 40% 08/11 0615 40 08/11 0400 100 Ventilator 40% 08/11 0251 40 08/11 0104 40 08/11 0000 100 Ventilator 40% 08/11 0000 96.4 68 22 132/68 100 Ventilator 40% 08/10 2300 40 08/10 2038 40 08/10 2000 100 Ventilator 40% 08/10 1618 40 08/10 1400 40 Intake & Output 08/11 1600 08/11 0800 08/11 0000 08/10 1600 08/10 0800 08/10 0000 Intake Total 455 610 498 474 0 Output Total 450 500 300 400 30 Balance 5 110 198 74 -30 Intake, IV 455 550 438 474 0 Intake, Oral 0 0 0 Intake, Other 60 60 Number 0 0 0 0 Bowel Movements Output, 0 200 Gastric Drainage Output, Urine 450 500 300 200 30 Physical Exam: Well-developed, well-nourished elderly male in no acute distress. Vital signs: As above. Lungs: Clear to auscultation. Heart: S1, S2 with grade 1/6 systolic murmur. Abdomen: Soft, nontender, positive bowel sounds. Extremities: No edema. Assessment/Plan Assessment/Plan Paroxysmal atrial fibrillation with episodes of wide complex irregularly irregular complexes c/w BBB vs aberrancy and previous epistaxis and acute blood loss anemia requiring packing/transfusion wiyh subsequent HFpEF, requiring intubation who is now improved. Continue IV heparin until cleared for reinitiation of Xarelto (rivaroxaban) by pulmonary medicine. Recommendations: * Continue present management with amiodarone. * If tachycardia becomes an issue agree with IV diltiazem for rate control as blood pressure tolerates. * If low blood pressure becomes an issue, consider starting digoxin. * Repeat troponin to be sure it is trending downward * When ready for transfer out of ICU would place on telemetry. Continue telemetry? Not applicable (ICU)
[2016-08-11 16:00] VITALS: BP 120/80
--- NOTE | 2016-08-11 17:48 | NUR ---
WHEN PATIENT IS SLEEPING HIS OXYGEN SATURATION DROPS DOWN TO 85% PATIENT PLACED BACK ON 28% VENTI MASK, SAT RETURNED TO 96%. WHEN AWAKE SAT IS 93% ON RA.
[2016-08-11 18:23] LABS: PTT 61 SEC (25-37)
[2016-08-12 05:45] LABS: ABSOLUTE BASOPHIL COUNT 0 /CUMM (0.0-0.2); ABSOLUTE EOSINOPHIL COUNT 0 /CUMM (0.0-0.7); ABSOLUTE GRANULOCYTE CT 15.7 /CUMM (1.4-6.5); ABSOLUTE LYMPH COUNT 0.3 /CUMM (1.2-3.4); ABSOLUTE MONOCYTE COUNT 0.7 /CUMM (0.10-0.60); BASOPHIL % 0 % (0.0-2.0); EOSINOPHIL % 0 % (0-5); GRANULOCYTE % 94.2 % (42.2-75.2); HEMATOCRIT 32.4 % (42-52); MEAN CORPUSCULAR HGB 26.7 PG (27.0-31.0); MEAN CORPUSCULAR HGB CONC 32.2 G/DL (33.0-37.0); MEAN PLATELET VOLUME 7.4 FL (7.4-10.4); PLATELET COUNT 352 /CUMM (130-400); RBC DISTRIBUTION WIDTH 17.9 % (11.5-14.5)
[2016-08-12 06:34] LABS: PTT > 120 SEC (25-37)
[2016-08-12 06:37] LABS: WHITE BLOOD CELL COUNT 16.6 /CUMM (4.8-10.8)
[2016-08-12 08:00] VITALS: BP 132/72
--- NOTE | 2016-08-12 08:08 | PN- Resident CRCU ---
Subjective HPI/CRCU Issues: Acute hypoxic respiratory failure FIORDALIZA on CKD Acute blood loss anemia 24 Hour Events: Patient reports difficulty sleeping overnight, tried to walk to the restroom in the morning and started developing exertional drops of breath after he came back to bed. He was briefly on nasal cannula today morning and returned back to room air. He denies any lightheadedness, dizziness, chest pain. Able to tolerate oral intake. Objective Vital Signs & I&O Last 8 Hrs of Vitals and I&O: Remained afebrile, heart rate 96-110 pacer rhythm, blood pressure 130/78 mmHg, extubated and placed on Ventimask briefly. Currently on room air. Port input and output yesterday is 2066/0 Intake & Output 08/12 1600 Intake Total 1087 Output Total 300 Balance 787 Intake, IV 307 Intake, Oral 780 Number 2 Bowel Movements Output, Urine 300 Exam General Appearance: well developed/nourished, no apparent distress, alert, awake , comfortable Head: atraumatic Neck: normal inspection, supple Respiratory: normal breath sounds, chest non-tender, no respiratory distress, crackles Cardiovascular: regular rate/rhythm, tachycardia Gastrointestinal: normal bowel sounds, soft, non-tender Extremities: normal inspection Weaning Parameters NIF: 30 Minute Volume: 10.8 Resp rate: 20 Vt: 5591 Heart Rate: 93 Weaning Schedule Start Time: 0815 Minute Volume: 6.5 Resp Rate: 10 Vt: 790 Heart Rate: 104 End Time: 0915 Minute Volume: 6.5 Resp Rate: 12 Vt: 800 Heart Rate: 100 Start Time: 914 End Time: 944 IV Drips IV Drips: None Nutrition Nutrition: P.O. diet Current Medications: Current Medications Sig/Clare Start time Last Medication Dose Route Stop Time Status Admin Albuterol Sulfate 3 ML TID 08/07 1057 AC 08/12 INH 1330 Albuterol Sulfate 2 PUF Q6P PRN 08/06 2115 AC INH Amiodarone HCl 200 MG DAILY 08/07 1000 AC 08/12 PO 0917 Ampicillin Sodium/ 1,500 MG Q6 08/10 1200 AC 08/12 Sulbactam Sodium IV 1247 Sodium Chloride 100 ML Budesonide/ 2 PUF BID 08/07 1000 AC 08/12 Formoterol Fumarate INH 0918 Diltiazem HCl 120 MG DAILY 08/07 1000 AC 08/12 PO 0917 Epoetin Andrea 20,000 UNITS Q 2 WEEKS 08/25 1000 CAN IV Furosemide 20 MG ONCE ONE 08/12 1515 DC 08/12 IV 08/12 1516 1610 Heparin Sodium 3,428 UNIT ONE ONE 08/12 1435 DC 08/12 (Porcine) IV 08/12 1436 1458 Heparin Sodium 25,000 UNIT Q24H 08/10 0900 AC 08/12 (Porcine) IV 1444 Sodium Chloride 500 ML Insulin Aspart 0 TIDAC 08/12 1200 AC 08/12 SC 1612 Insulin Aspart 0 TIDAC 08/11 1200 DC 08/12 SC 0839 Magnesium Oxide 400 MG DAILY 08/10 1038 AC 08/12 PO 0917 Methylprednisolone 40 MG DAILY 08/13 1000 AC IV Methylprednisolone 40 MG Q12 08/10 1032 DC 08/12 IV 0917 Pantoprazole Sodium 40 MG DAILY 08/09 2230 AC 08/12 IV 0917 Potassium Chloride 20 MEQ ONCE ONE 08/12 0900 DC 08/12 PO 08/12 0901 0916 Pravastatin Sodium 80 MG 1700 08/07 1700 AC 08/12 PO 1610 Tamsulosin HCl 0.4 MG DAILY 08/06 2118 AC 08/12 PO 0917 Antibiotics Antibiotic: Unasyn IV Q6 Results Results: Respiratory cultures on August 10 grew staph aureus Cultures: Culture: blood and urine cultures Date: 08/06/16 Isolate: NONE CXR Findings: IMPRESSION: Interval improved aeration at left lung base. Residual disease is still noted. No new abnormalities. EKG Findings: NSR HR 96-110 Impression/Plan Impression/Problem List Impression: 76/M with PMH of CHF, A. fib, pacemaker and IVCD who was admitted for FIORDALIZA and anemia due to epistaxis during admission he developed respiratory distress that required transfer to ICU. CXR obtained was remarkable for flash pulmonary edema, ABG suggested hypoxia. Patient was a candidate for BiPAP as he was presenting with pulmonary edema of cardiac origin. However due to his nasal packings, BiPAP was not feasible and therefore patient had to be intubated. Acute hypoxemic respiratory failure Most probable etiology is pulmonary edema as evident on chest x-ray. There is also a possibility of aspiration as patient has nasal packing from his epistaxis. Does have an elevated proBNP which indicates decompensated heart failure. * Extubated yesterday -- briefly on venturimask, currently on room air. * continue Unasyn -- Respiratory cultures grew S.aureus * Coutious diuresis as needed - today received furosemide 20mg IV Acute blood loss anemia with Epistaxis in the setting of xarelto intake Most likely aggravated by anticoagulant use, controlled after nasal packing. No acute worsening within the past 24 hours. * CBC daily -- stable from yesterday Hb although dropped from 13 to 10 after admission. History of Paroxysmal atrial fibrillation Continues to have paroxysms of atrial fibrillation with rapid ventricular response rates. * Continue amiodarone and IV heparin drip -- can be transitioned to xarelto * consider starting digoxin if hypotensive. * If patient heart rate increases will consider starting Cardizem drip for target heart rate of 110 or lower -- for now continue cardizem 120mg daily. * Continue pravastatin 80mg daily. FIORDALIZA on CKD * Cr 1.7 at admission (baseline), worsened to 2.3 * Today Cr is 1.9 -- improving. * Diuresing cautiously -- received * We will consult nephrology BPH * continue flomax Mild COPD exacerbation - ?? heart related * Continue Albuterol, Symbicort * IV methy prednisone converted from Q12 to 40mg daily today * TRC/Nebs History of Diabetes * Continue insulin sliding scale with Accuchecks. * Blood sugars in 400's today --modified medium dose sliding scale (by 1 unit each) and added bedtime sliding scale. If still high consider switching to high dose sliding scale. DVT prophylaxis on heparin drip CC2 diet Full code Problem List: 1. ATRIAL FIBRILATION 2. Hypertension 3. CHF (congestive heart failure) 4. FIORDALIZA (acute kidney injury) 5. COPD (chronic obstructive pulmonary disease) 6. Flash pulmonary edema 7. Acute blood loss anemia 8. Acute respiratory failure Pain Ratin Pain Location: n/a Tomorrow's Labs & Rationales: cbc to monitor H&H ICU bundle to monitor Cr (FIORDALIZA on CKD), electrolytes. Plan DVT/Prophylaxis: pharmacological
--- NOTE | 2016-08-12 09:17 | PN- CRCU ---
Subjective HPI/Critical Care Issues: The patient is awake and alert. He is doing well post extubation. He is currently on room air. The patient reports feeling markedly improved. He did have a short period of time where he felt short of breath after going to the bathroom, however this has now resolved and he denies any new complaints. Specifically, he has no sputum production, chest pain, fever or chills. No complaint of pain. There were no overnight events reported. Objective Current Medications: Current Medications Sig/Clare Start time Last Medication Dose Route Stop Time Status Admin Albuterol Sulfate 3 ML TID 08/07 1057 AC 08/12 INH 0855 Albuterol Sulfate 2 PUF Q6P PRN 08/06 211 AC INH Amiodarone HCl 200 MG DAILY 08/07 1000 AC 08/11 PO 0910 Ampicillin Sodium/ 1,500 MG Q6 08/10 1200 AC 08/12 Sulbactam Sodium IV 0520 Sodium Chloride 100 ML Budesonide/ 2 PUF BID 08/07 1000 AC 08/09 Formoterol Fumarate INH 2009 Diltiazem HCl 120 MG DAILY 08/07 1000 AC 08/11 PO 1226 Epoetin Andrea 20,000 UNITS Q 2 WEEKS 08/25 1000 CAN IV Fentanyl Citrate 1,000 MCG Q20H 08/10 1700 DC 08/10 Dextrose/Water 250 ML IV 2012 Furosemide 40 MG ONCE ONE 08/11 1500 DC 08/11 IV 08/11 1501 1504 Heparin Sodium 25,000 UNIT Q24H 08/10 0900 AC 08/11 (Porcine) IV 2359 Sodium Chloride 500 ML Insulin Aspart 0 TIDAC 08/11 1200 AC 08/12 SC 0839 Insulin Human Regular 0 Q6 08/10 0615 DC 08/11 SC 0631 Magnesium Oxide 400 MG DAILY 08/10 1038 AC 08/11 PO 0910 Methylprednisolone 40 MG Q12 08/10 1032 AC 08/11 IV 2222 Pantoprazole Sodium 40 MG DAILY 08/09 2230 AC 08/11 IV 0911 Potassium Chloride 20 MEQ ONCE ONE 08/12 0900 DC PO 08/12 0901 Potassium Chloride 40 MEQ ONCE ONE 08/11 1330 DC 08/11 PO 08/11 1331 1504 Pravastatin Sodium 80 MG 1700 08/07 1700 AC 08/11 PO 1713 Tamsulosin HCl 0.4 MG DAILY 08/06 2118 AC 08/11 PO 1226 Vital Signs & I&O Last 24 Hrs of Vitals and I&O: Vital Signs Date Time Temp Pulse Resp B/P B/P Pulse O2 O2 Flow FiO2 Mean Ox Delivery Rate 08/12 0400 96 Venti Mask 35% 08/11 2034 94 Room Air 08/11 1600 96 Venti Mask 28% 08/11 1600 99.0 96 20 120/80 96 Venti Mask 28% 08/11 1226 92 134/69 08/11 1200 97 Venti Mask 30% 08/11 1200 99.0 102 20 132/74 97 Venti Mask 30% 08/11 0910 108 155/70 Intake & Output 08/12 1600 08/12 0800 08/12 0000 Intake Total 397 787 Output Total 300 900 Balance 97 -113 Intake, IV 347 347 Intake, Oral 50 440 Number 1 0 Bowel Movements Output, Urine 300 900 Exam General Appearance: no apparent distress, alert, awake, comfortable Head: atraumatic, normal appearance Neck: supple Respiratory: quiet respiration, wheezing Cardiovascular: S1 and S2 heard, heart sounds are distant Abdomen: normal bowel sounds, soft, non-tender Extremities: no edema Skin: intact, normal color, warm/dry Results Last 24 Hrs of Lab Results: Laboratory Tests 08/12/16 0445: Anion Gap 12, Estimated GFR 35 L, Glucose 224 H, Calcium 7.8 L, Phosphorus 4.2, Magnesium 2.1, Total Bilirubin 0.2, AST 14 L, ALT 27, Albumin 2.7 L, APTT > 120 *H, CBC w Diff NO MAN DIFF REQ, RBC 3.90 L, MCV 83.0, MCH 26.7 L, RDW 17.9 H, MPV 7.4, Gran % 94.2 H, Lymphocytes % 1.7 L, Monocytes % 4.1, Eosinophils % 0, Basophils % 0 L, Absolute Granulocytes 15.7 H, Absolute Lymphocytes 0.3 L, Absolute Monocytes 0.7 H, Absolute Eosinophils 0, Absolute Basophils 0, PUBS MCHC 32.2 L 08/11/16 1745: Troponin I 0.03, APTT 61 H 08/11/16 1014: pH 7.43, pCO2 37, pO2 90, HCO3 24, ABG O2 Sat (Measured) 97.0, P-50 (Temp Corrected) YES, Carboxyhemoglobin 0.3 L, O2 Concentration % 40%, Temperature 96.4 L, O2 Delivery Method T PIECE, Phlebotomy Draw Site RIGHT RADIAL Impression/Plan Impression/Plan Impression/Plan: 1. Stable respiratory staus post extubation. 2. Improved pulmonary edema, HFpEF. 3. Possible aspiration pneumonia, on IV Unasyn. 4. History of AF, on IV Heparin and amiodarone. 5. Acute on chronic kidney disease. 6. Resolved epistaxis. Recommendations: * Continue with heparin/amiodarone/rate control as per cardiology. * Continue Lasix, negative fluid balance. Monitor strict I's and O's. * Discontinue Milligan catheter. * Increase activity, out of bed to chair. * Physical therapy consult. * Continue to monitor culture data. * Continue IV Unasyn pending culture results. * Advance diet as tolerated. * DVT prophylaxis at all times. * Continue all supportive care.
--- NOTE | 2016-08-12 10:22 | NUR ---
A+OX3, ON RA. LOWER LOBES OF LUNG HAVE AN EXP WHEEZE, NON PRODUCTIVE COUGH NOTED. ABDOMEN SOFT, +BS, BM IN TOILET THIS MORNING. SKIN INTACT. NO EDEMA NOTED. HEPARIN GTT AT 22ML/HR OR 13.9 UNITS/KG/HR, WALTON REMOVED. CXR DONE. OOB TO BATHROOM WITH MINIMAL ASSIST. WILL MONITOR.
--- NOTE | 2016-08-12 10:33 | RADIOLOGY REPORT ---
EXAMINATION: XR PORTABLE CHEST CLINICAL INFORMATION: Follow-up of abnormal chest radiograph. Known to have pulmonary edema and aspiration pneumonia. COMPARISON: Chest radiograph done on 08/10/2016 and 08/11/2016. TECHNIQUE: Portable frontal view of the chest was obtained. FINDINGS: There is improved aeration noted at left lower lobe of the lung. The enteric tube, and the endotracheal tubes are no longer visualized. Residual airspace opacity as well as possible small left-sided pleural effusion/thickening are noted. The remainder of the lung steven appear well aerated and are clear. The cardiomediastinal silhouette is within normal limits. The visualized part of the pacer wires appear intact. No new abnormalities. IMPRESSION: Interval improved aeration at left lung base. Residual disease is still noted. No new abnormalities.
[2016-08-12 12:00] VITALS: BP 130/98
--- NOTE | 2016-08-12 12:16 | PN- Att Addend ---
Attending Addendum Attending Brief Note Mr. Diez was interviewed, examined, and his EHR reviewed. He is sitting in a chair is alert and in no acute distress. He denies chest pain, palpitations, fever, and chills. He states he had an episode of shortness of breath in the early hours when he got up to use the bathroom but it has not recurred. He denies recurrent epistaxis. His afebrile with stable blood pressure. He remains slightly tachycardic. His oxygen saturation levels are satisfactory on room air. Pulmonary exam shows equal breath sounds and is clear. As noted above cardiovascular exam revealed a mild tachycardia. His abdomen is benign. WBC has decreased today. His renal function continues to improve. He is mildly hyperglycemic. Chest x-ray shows improving airspace disease in his left lower lung. Sputum culture is growing staph aureus. He is status post intubation and mechanical ventilation for HFpEF. He continues on amiodarone for his PAF. He continues on Unasyn for possible aspiration pneumonia. We are treating his hyperglycemia with sliding scale insulin. We continue to treat his electrolyte abnormalities with supplementation. Continue to follow him for evidence of recurrent epistaxis and also are following his H& H.
[2016-08-12 14:14] LABS: PTT 50 SEC (25-37)
[2016-08-12 16:00] VITALS: BP 128/80
--- NOTE | 2016-08-12 20:23 | PN- Cardiology ---
Subjective Subjective: No complaints. No further oozing from his nose. Objective Vital Signs and I&Os Vital Signs Date Time Temp Pulse Resp B/P B/P Pulse O2 O2 Flow FiO2 Mean Ox Delivery Rate 08/12 1931 98 Room Air Room Air 08/12 1600 98.2 102 20 128/80 94 Room Air 08/12 1200 98.0 102 18 130/98 95 Room Air 08/12 0917 104 135/71 08/12 0917 106 135/71 08/12 0856 93 Room Air 08/12 0800 Room Air 08/12 0800 98.1 112 20 132/72 94 Room Air 08/12 0400 96 Venti Mask 35% 08/11 2033 94 Room Air Intake & Output 08/12 1600 08/12 0800 08/12 0000 08/11 1600 08/11 0800 08/11 0000 Intake Total 1087 397 787 883 455 610 Output Total 300 300 900 500 450 500 Balance 787 97 -113 383 5 110 Intake, IV 307 347 347 373 455 550 Intake, Oral 780 50 440 360 Intake, Other 150 60 Number 2 1 0 0 0 Bowel Movements Output, 0 Gastric Drainage Output, Urine 300 300 900 500 450 500 Physical Exam: Well-developed, well-nourished elderly male in no acute distress. Vital signs: As above. Lungs: Mild expiratory wheeze on right. Heart: S1, S2 with grade 1/6 systolic murmur. Abdomen: Soft, nontender, positive bowel sounds. Extremities: No edema. Current Medications: Current Medications Sig/Clare Start time Last Medication Dose Route Stop Time Status Admin Albuterol Sulfate 3 ML TID 08/07 1057 AC 08/12 INH 1930 Albuterol Sulfate 2 PUF Q6P PRN 08/06 2114 AC INH Amiodarone HCl 200 MG DAILY 08/07 1000 AC 08/12 PO 0917 Ampicillin Sodium/ 1,500 MG Q6 08/10 1200 AC 08/12 Sulbactam Sodium IV 1830 Sodium Chloride 100 ML Budesonide/ 2 PUF BID 08/07 1000 AC 08/12 Formoterol Fumarate INH 0918 Diltiazem HCl 180 MG DAILY 08/13 1000 UNVr PO Diltiazem HCl 60 MG ONCE ONE 08/12 2030 UNVr PO 08/12 2030 Diltiazem HCl 120 MG DAILY 08/07 1000 DC 08/12 PO 0917 Furosemide 20 MG ONCE ONE 08/12 1515 DC 08/12 IV 08/12 1516 1610 Heparin Sodium 3,428 UNIT ONE ONE 08/12 1435 DC 08/12 (Porcine) IV 08/12 1436 1458 Heparin Sodium 25,000 UNIT Q24H 08/10 0900 AC 08/12 (Porcine) IV 1444 Sodium Chloride 500 ML Insulin Aspart 0 TIDAC 08/12 1200 AC 08/12 SC 1612 Insulin Aspart 0 TIDAC 08/11 1200 DC 08/12 SC 0839 Magnesium Oxide 400 MG DAILY 08/10 1038 AC 08/12 PO 0917 Methylprednisolone 40 MG DAILY 08/13 1000 AC IV Methylprednisolone 40 MG Q12 08/10 1032 DC 08/12 IV 0917 Pantoprazole Sodium 40 MG DAILY 08/09 2230 AC 08/12 IV 0917 Potassium Chloride 20 MEQ ONCE ONE 08/12 0900 DC 08/12 PO 08/12 0901 0916 Pravastatin Sodium 80 MG 1700 08/07 1700 AC 08/12 PO 1610 Tamsulosin HCl 0.4 MG DAILY 08/06 211 08/12 PO 0917 Results Last 48 Hrs of Labs/Mics: Laboratory Tests 08/12/16 1315: APTT 50 H 08/12/16 0445: Anion Gap 12, Estimated GFR 35 L, Glucose 224 H, Calcium 7.8 L, Phosphorus 4.2, Magnesium 2.1, Total Bilirubin 0.2, AST 14 L, ALT 27, Albumin 2.7 L, APTT > 120 *H, CBC w Diff NO MAN DIFF REQ, RBC 3.90 L, MCV 83.0, MCH 26.7 L, RDW 17.9 H, MPV 7.4, Gran % 94.2 H, Lymphocytes % 1.7 L, Monocytes % 4.1, Eosinophils % 0, Basophils % 0 L, Absolute Granulocytes 15.7 H, Absolute Lymphocytes 0.3 L, Absolute Monocytes 0.7 H, Absolute Eosinophils 0, Absolute Basophils 0, PUBS MCHC 32.2 L 08/11/16 1745: Troponin I 0.03, APTT 61 H 08/11/16 1014: pH 7.43, pCO2 37, pO2 90, HCO3 24, ABG O2 Sat (Measured) 97.0, P-50 (Temp Corrected) YES, Carboxyhemoglobin 0.3 L, O2 Concentration % 40%, Temperature 96.4 L, O2 Delivery Method T PIECE, Phlebotomy Draw Site RIGHT RADIAL 08/11/16 0346: Anion Gap 13, Estimated GFR 28 L, Glucose 182 H, Calcium 8.4, Phosphorus 4.7 H, Magnesium 2.0, Total Bilirubin 0.3, AST 18, ALT 37, Albumin 2.8 L, APTT 65 H, CBC w Diff MAN DIFF ORDERED, RBC 3.88 L, MCV 82.5, MCH 26.2 L, RDW 17.3 H, MPV 7.4, Gran % 92.4 H, Lymphocytes % 3.5 L, Monocytes % 4.0, Eosinophils % 0, Basophils % 0.1, Absolute Granulocytes 16.6 H, Absolute Lymphocytes 0.6 L, Absolute Monocytes 0.7 H, Absolute Eosinophils 0, Absolute Basophils 0, Platelet Estimate ADEQUATE, Ovalocytes 1+, PUBS MCHC 31.8 L Recent Imaging Studies: CXR (08/12/2016):Interval improved aeration at left lung base. Residual disease is still noted. No new abnormalities. Assessment/Plan Assessment/Plan Paroxysmal atrial fibrillation with episodes of wide complex irregularly irregular complexes c/w BBB vs aberrancy and previous epistaxis and acute blood loss anemia requiring packing/transfusion wiyh subsequent HFpEF, requiring intubation who is now improved. Continue IV heparin until cleared for reinitiation of Xarelto (rivaroxaban) by pulmonary medicine. Recommendations: * Continue present management with amiodarone. * Still tachycardic ventricular response is to his atrial fibrillation and would increase his diltiazem from 120 mg daily to 180 mg daily as blood pressure tolerates. * If low blood pressure becomes an issue, consider starting digoxin. * Repeat troponin to be sure it is trending downward * When ready for transfer out of ICU would place on telemetry. * DVT prophylaxis being addressed. Continue telemetry? Not applicable (ICU)
[2016-08-12 23:22] LABS: PTT 57 SEC (25-37)
[2016-08-13 05:25] LABS: ABSOLUTE BASOPHIL COUNT 0 /CUMM (0.0-0.2); ABSOLUTE EOSINOPHIL COUNT 0 /CUMM (0.0-0.7); ABSOLUTE GRANULOCYTE CT 14.2 /CUMM (1.4-6.5); ABSOLUTE LYMPH COUNT 0.5 /CUMM (1.2-3.4); ABSOLUTE MONOCYTE COUNT 0.8 /CUMM (0.10-0.60); BASOPHIL % 0.1 % (0.0-2.0); EOSINOPHIL % 0 % (0-5); GRANULOCYTE % 91.7 % (42.2-75.2); HEMATOCRIT 31.3 % (42-52); MEAN CORPUSCULAR HGB 26.7 PG (27.0-31.0); MEAN CORPUSCULAR HGB CONC 32.4 G/DL (33.0-37.0); MEAN CORPUSCULAR VOLUME 82.3 FL (80.0-94.0); MEAN PLATELET VOLUME 7.5 FL (7.4-10.4); PLATELET COUNT 364 /CUMM (130-400); RBC DISTRIBUTION WIDTH 17.6 % (11.5-14.5); RED BLOOD CELL CT 3.81 /CUMM (4.70-6.10); WHITE BLOOD CELL COUNT 15.5 /CUMM (4.8-10.8)
[2016-08-13 05:44] LABS: PTT > 120 SEC (25-37)
--- NOTE | 2016-08-13 07:35 | PN- Resident CRCU ---
HUNTER LONGORIA,ANTOINETTE 08/13/16 0735: Subjective HPI/CRCU Issues: Pulmonary edema Epistaxis CHF hX OF AFIB copd 24 Hour Events: Seen and examined at bedside. Heart rate is noted to be elevated with intermittent bursts of upto 140 other vs stable. He endorses 3-4 episode of loose stool/diarrhea, but denies any fever or smelly stool. He reports his breathingis better. No acute o/n nursing or telemetry event reported. Objective Exam General Appearance: alert, awake Head: atraumatic, normal appearance Respiratory: diffuse b/l wheezes Cardiovascular: s1/s2 no m/g/r Gastrointestinal: normal bowel sounds, soft, non-tender Extremities: normal inspection, normal capillary refill Weaning Parameters NIF: 30 Minute Volume: 10.8 Resp rate: 20 Vt: 5591 Heart Rate: 93 Weaning Schedule Start Time: 0815 Minute Volume: 6.5 Resp Rate: 10 Vt: 790 Heart Rate: 104 End Time: 0915 Minute Volume: 6.5 Resp Rate: 12 Vt: 800 Heart Rate: 100 Start Time: 0915 End Time: 0945 Current Medications: Current Medications Sig/Clare Start time Last Medication Dose Route Stop Time Status Admin Albuterol Sulfate 3 ML TID 08/07 1057 AC 08/13 INH 2043 Albuterol Sulfate 2 PUF Q6P PRN 08/06 2115 AC INH Amiodarone HCl 200 MG DAILY 08/07 1000 AC 08/13 PO 0902 Ampicillin Sodium/ 1,500 MG Q6 08/10 1200 DC 08/13 Sulbactam Sodium IV 0600 Sodium Chloride 100 ML Budesonide/ 2 PUF BID 08/07 1000 AC 08/13 Formoterol Fumarate INH 2144 Diltiazem HCl 240 MG DAILY 08/14 1000 AC PO Diltiazem HCl 60 MG ONCE ONE 08/13 1615 DC 08/13 PO 08/13 1616 1850 Diltiazem HCl 180 MG DAILY 08/13 1000 DC 08/13 PO 0902 Guaifenesin 600 MG Q12 08/13 2200 AC 08/13 PO 2143 Heparin Sodium 25,000 UNIT Q24H 08/10 0900 DC 08/12 (Porcine) IV 1444 Sodium Chloride 500 ML Insulin Aspart 0 TIDAC 08/12 1200 AC 08/13 SC 1750 Lactobacillus 1 CAP BID 08/13 1000 AC 08/13 Acidophilus PO 2143 Magnesium Oxide 400 MG DAILY 08/10 1038 DC 08/12 PO 0917 Methylprednisolone 40 MG DAILY 08/13 1000 AC 08/13 IV 0903 Omeprazole 40 MG DAILY AC 08/13 0700 AC 08/14 PO 0538 Pravastatin Sodium 80 MG 1700 08/07 1700 AC 08/13 PO 1720 Rivaroxaban 15 MG 1700 08/13 1700 AC 08/13 PO 1720 Tamsulosin HCl 0.4 MG DAILY 08/06 2118 AC 08/13 PO 0902 Vancomycin HCl 1,000 MG ONCE ONE 08/13 1015 DC 08/13 Sodium Chloride 250 ML IV 08/13 1114 1620 Impression/Plan Impression/Problem List Impression: This is a 76yo genetleman with past medical history of CHF, A. fib, pacemaker and IVCD was admitted for FIORDALIZA and anemia due to epistaxis, had respiratory distress last night night despite being on 100% nonrebreather mask. CXR obtained was remarkable for pulmonary edema, AG suggested hypoxia. Patient was a candidate for BiPAP as he was presenting with pulmonary edema of cardiac origin. However due to his nasal packings, BiPAP was not feasible and therefore patient had to be intubated. Impression and Plan #Acute hypoxemic respiratory failure requiring intubation. Most probable etiology is pulmonary edema as evident by worsening finding on chest x-ray. There is also a possibility of aspiration as patient has nasal packing from his epistaxis. Does have an elevated proBNP which indicates decompensated heart failure. TRALI unlikely due to timing and baseline elevated proBNP. Will stop unasyn today, Vanco one time dose. #Epistaxis Most likely aggravated by anticoagulant use, controlled after nasal packing. No acute worsening within the past 48 hours. I personally contacted ENT (Dr Moreau office) who have no objection starting NOACs since pt has been epistaxis free for more than 48 hours. #History of atrial fibrillation Patient heart rate is not controlled with intermittent bursts of up to 140. We' ll increase Cardizem 60 mg to achieve a total dose of 240 mg. Heart rate is still uncontrolled we'll consider starting home medication of labetalol. We'll stop heparin and restart renally adjusted Xarelto 15 mg daily. Percent history of BPH Will hold off Flomax for now Problem List: 1. Acute respiratory failure 2. Acute respiratory failure with hypoxia Pain Ratin Tomorrow's Labs & Rationales: ICU BUNDLE Plan DVT/Prophylaxis: pharmacological ARY LONGORIA,[facility] 08/13/16 1835: Objective Vital Signs & I&O Last 8 Hrs of Vitals and I&O: Intake & Output 08/13 1600 Intake Total Output Total Balance Patient 189 lb Weight Attending MD Review Statement Attending Sign Off Attending Cosign Statement: I have: examined this patient, reviewed avalbl EMR data, personally reviewd images, discussd w/resident/PA/DIRECTOR HOME, discussed mgmt plan w/monica, discussed mgmt plan w/CM, discussed mgmt plan w/pt, agreed w/resident/PA/DIRECTOR HOME. Other Findings: This is a gentleman with paroxysmal atrial fibrillation on xeralto, significant COPD, on chronic anticoagulation as well, biventricular pacer for a previous wide-complex rhythm, previous coronary artery disease, who came in with significant epistaxis with bilateral packing other, suddenly went into acute hypoxemic respiratory failure requiring mechanical ventilation as he was unable to be given noninvasive ventilation due to bilateral nasal packing. He does also have significant pulmonary hypertension, mitral regurgitation, diabetes, previous gout and osteoarthritis. He does have significant COPD who is not currently on 24-hour oxygen with [id number] smoking history who has quit smoking few yrs ago now here in the ICU with the following issues. Resolved Acute hypoxemic respiratory failure due to related to acute pulmonary edema in a gentleman with preserved ejection fraction with the no significant elevation in troponin with Pafib on amiodarone and was on anticoag (held tempororily for a short time for epistaxis) with biventricular pacer, consistent with acute diastolic heart failure with very significantly elevated proBNP. s/p intubation and extubation Significant bilateral epistaxis with nasal packing, stable needs abx Sig COPD with a right middle lobe bronchiectasis from his previous pneumonia with MRSA colonization. stable Paroxysmal atrial fibrillation with anticoagulation before, on amiodarone with biventricular pacer. Recent bronchiolitis with Previous small lung nodules Chronic kidney disease with atrophic 1 kidney. Hypertension, gout, previous high blood sugar, previous gout. Mild aortic aneurysm BPH on Flomax REC check stool for C. difficile Continue all other medications 1 dose of Vanco out of bed to chair Call ENT to make sure there is packing his reabsorbable Discontinue antibiotics after tomorrow Continue diltiazem
[2016-08-13 08:00] VITALS: BP 120/66
--- NOTE | 2016-08-13 09:32 | PN- Cardiology ---
Subjective Subjective: The patient is feeling better. His breathing is good. He is off oxygen. He is still receiving IV Solu-Medrol. He is now on 180 mg Cardizem daily. His home dose of Cardizem was 120 mg daily but he also was on labetalol 200 mg twice daily, which she is not getting here. His heart rate is still elevated in atrial fibrillation. Objective Vital Signs and I&Os Vital Signs Date Time Temp Pulse Resp B/P B/P Pulse O2 O2 Flow FiO2 Mean Ox Delivery Rate 08/13 0902 99 150/66 08/13 0902 99 150/66 08/13 0817 95 Room Air Room Air 08/12 1931 98 Room Air Room Air 08/12 1600 98.2 102 20 128/80 94 Room Air 08/12 1200 98.0 102 18 130/98 95 Room Air Intake & Output 08/13 1600 08/13 0800 08/13 0000 08/12 1600 08/12 0800 08/12 0000 Intake Total 463.4 791 1087 397 787 Output Total 400 350 300 300 900 Balance 63.4 441 787 97 -113 Intake, IV 313.4 351 307 347 347 Intake, Oral 150 440 780 50 440 Number 1 1 2 1 0 Bowel Movements Output, Urine 400 350 300 300 900 Physical Exam: He is in no distress Chest is relatively clear Heart irregular rhythm moderate rate, no murmurs Extremities no edema Current Medications: Current Medications Sig/Clare Start time Last Medication Dose Route Stop Time Status Admin Albuterol Sulfate 3 ML TID 08/07 1057 AC 08/13 INH 0812 Albuterol Sulfate 2 PUF Q6P PRN 08/065 AC INH Amiodarone HCl 200 MG DAILY 08/07 1000 AC 08/13 PO 0902 Ampicillin Sodium/ 1,500 MG Q6 08/10 1200 AC 08/13 Sulbactam Sodium IV 0600 Sodium Chloride 100 ML Budesonide/ 2 PUF BID 08/07 1000 AC 08/13 Formoterol Fumarate INH 0903 Diltiazem HCl 180 MG DAILY 08/13 1000 AC 08/13 PO 0902 Diltiazem HCl 60 MG ONCE ONE 08/12 2030 DC 08/12 PO 08/12 2031 2158 Diltiazem HCl 120 MG DAILY 08/07 1000 DC 08/12 PO 0917 Furosemide 20 MG ONCE ONE 08/12 1515 DC 08/12 IV 08/12 1516 1610 Heparin Sodium 3,440 UNIT ONCE ONE 08/13 0000 DC 08/12 (Porcine) IV 08/13 0001 2300 Heparin Sodium 3,428 UNIT ONE ONE 08/12 1435 DC 08/12 (Porcine) IV 08/12 1436 1458 Heparin Sodium 25,000 UNIT Q24H 08/10 0900 AC 08/12 (Porcine) IV 1444 Sodium Chloride 500 ML Insulin Aspart 0 TIDAC 08/12 1200 AC 08/13 SC 0900 Insulin Aspart 0 TIDAC 08/11 1200 DC 08/12 SC 0839 Lactobacillus 1 CAP BID 08/13 1000 AC 08/13 Acidophilus PO 0901 Magnesium Oxide 400 MG DAILY 08/10 1038 AC 08/12 PO 0917 Methylprednisolone 40 MG DAILY 08/13 1000 AC 08/13 IV 0903 Methylprednisolone 40 MG Q12 08/10 1032 DC 08/12 IV 0917 Omeprazole 40 MG DAILY AC 08/13 0700 AC 08/13 PO 0638 Pantoprazole Sodium 40 MG DAILY 08/09 2230 DC 08/12 IV 0917 Potassium Chloride 20 MEQ ONCE ONE 08/13 0745 DC 08/13 PO 08/13 0746 0901 Pravastatin Sodium 80 MG 1700 08/07 1700 AC 08/12 PO 1610 Tamsulosin HCl 0.4 MG DAILY 08/06 2118 AC 08/13 PO 0902 Results Last 48 Hrs of Labs/Mics: Laboratory Tests 08/13/16 0430: Anion Gap 9, Estimated GFR 33 L, Glucose 209 H, Calcium 7.7 L, Phosphorus 3.0 , Magnesium 2.1, Total Bilirubin 0.2, AST 16 L, ALT 42, Albumin 2.7 L, APTT > 120 *H, CBC w Diff NO MAN DIFF REQ, RBC 3.81 L, MCV 82.3, MCH 26.7 L, RDW 17.6 H, MPV 7.5, Gran % 91.7 H, Lymphocytes % 3.1 L, Monocytes % 5.1, Eosinophils % 0, Basophils % 0.1, Absolute Granulocytes 14.2 H, Absolute Lymphocytes 0.5 L , Absolute Monocytes 0.8 H, Absolute Eosinophils 0, Absolute Basophils 0, PUBS MCHC 32.4 L 08/12/16 2300: APTT 57 H 08/12/16 1315: APTT 50 H 08/12/16 0445: Anion Gap 12, Estimated GFR 35 L, Glucose 224 H, Calcium 7.8 L, Phosphorus 4.2, Magnesium 2.1, Total Bilirubin 0.2, AST 14 L, ALT 27, Albumin 2.7 L, APTT > 120 *H, CBC w Diff NO MAN DIFF REQ, RBC 3.90 L, MCV 83.0, MCH 26.7 L, RDW 17.9 H, MPV 7.4, Gran % 94.2 H, Lymphocytes % 1.7 L, Monocytes % 4.1, Eosinophils % 0, Basophils % 0 L, Absolute Granulocytes 15.7 H, Absolute Lymphocytes 0.3 L, Absolute Monocytes 0.7 H, Absolute Eosinophils 0, Absolute Basophils 0, PUBS MCHC 32.2 L 08/11/16 1745: Troponin I 0.03, APTT 61 H 08/11/16 1014: pH 7.43, pCO2 37, pO2 90, HCO3 24, ABG O2 Sat (Measured) 97.0, P-50 (Temp Corrected) YES, Carboxyhemoglobin 0.3 L, O2 Concentration % 40%, Temperature 96.4 L, O2 Delivery Method T PIECE, Phlebotomy Draw Site RIGHT RADIAL Assessment/Plan Assessment/Plan The patient has improved with regards to his epistaxis. His respiratory status is good at this time. He remains on IV heparin but can be transitioned to Xarelto. His heart rate is still elevated but we will observe this. If it remains elevated we can increase his Cardizem and perhaps restart him on labetalol, which he was on at home. Otherwise he can be ambulated and discharged when his blood pressure and heart rate are controlled and he is tolerating the Xarelto. Continue telemetry? Yes
--- NOTE | 2016-08-13 11:00 | PN- Att Addend ---
Attending Addendum Attending Brief Note Patient breathing much better, off the oxygen only complaint he has been able to sleep being afraid of getting another nosebleed having cardiac problems. Vital signs are stable and has no fever and no major changes on physical. Will check with ENT see what the next step probably will be able to leave the intensive care unit to telemetry Intake & Output 08/13 1600 08/13 0400 08/12 1600 08/12 0400 08/11 1600 08/11 0400 Intake Total 463.4 791 6051 488 7862 610 Output Total 400 350 600 900 950 500 Balance 63.4 441 884 -113 388 110 Intake, IV 313.4 351 654 347 828 550 Intake, Oral 150 440 830 440 360 Intake, Other 150 60 Number 1 1 3 0 0 0 Bowel Movements Output, 0 Gastric Drainage Output, Urine 400 350 600 900 950 500 Current Medications Sig/Clare Start time Last Medication Dose Route Stop Time Status Admin Albuterol Sulfate 3 ML TID 08/07 1057 AC 08/13 INH 0812 Albuterol Sulfate 2 PUF Q6P PRN 08/06 2115 AC INH Amiodarone HCl 200 MG DAILY 08/07 1000 AC 08/13 PO 0902 Ampicillin Sodium/ 1,500 MG Q6 08/10 1200 DC 08/13 Sulbactam Sodium IV 0600 Sodium Chloride 100 ML Budesonide/ 2 PUF BID 08/07 1000 AC 08/13 Formoterol Fumarate INH 0903 Diltiazem HCl 180 MG DAILY 08/13 1000 AC 08/13 PO 0902 Diltiazem HCl 60 MG ONCE ONE 08/12 2030 DC 08/12 PO 08/12 2031 2158 Diltiazem HCl 120 MG DAILY 08/07 1000 DC 08/12 PO 0917 Furosemide 20 MG ONCE ONE 08/12 1515 DC 08/12 IV 08/12 1516 1610 Heparin Sodium 3,440 UNIT ONCE ONE 08/13 0000 DC 08/12 (Porcine) IV 08/13 0001 2300 Heparin Sodium 3,428 UNIT ONE ONE 08/12 1435 DC 08/12 (Porcine) IV 08/12 1436 1458 Heparin Sodium 25,000 UNIT Q24H 08/10 0900 AC 08/12 (Porcine) IV 1444 Sodium Chloride 500 ML Insulin Aspart 0 TIDAC 08/12 1200 AC 08/13 SC 0900 Insulin Aspart 0 TIDAC 08/11 1200 DC 08/12 SC 0839 Lactobacillus 1 CAP BID 08/13 1000 AC 08/13 Acidophilus PO 0901 Magnesium Oxide 400 MG DAILY 08/10 1038 AC 08/12 PO 0917 Methylprednisolone 40 MG DAILY 08/13 1000 AC 08/13 IV 0903 Methylprednisolone 40 MG Q12 08/10 1032 MT 08/12 IV 0917 Omeprazole 40 MG DAILY AC 08/13 0700 AC 08/13 PO 0638 Pantoprazole Sodium 40 MG DAILY 08/09 2230 DC 08/12 IV 0917 Potassium Chloride 20 MEQ ONCE ONE 08/13 0745 MT 08/13 PO 08/13 0746 0901 Pravastatin Sodium 80 MG 1700 08/07 1700 AC 08/12 PO 1610 Tamsulosin HCl 0.4 MG DAILY 08/06 2118 AC 08/13 PO 0902 Vancomycin HCl 1,000 MG ONCE ONE 08/13 1015 AC Sodium Chloride 250 ML IV 08/13 1114 Laboratory Tests 08/13/16 0430: Anion Gap 9, Estimated GFR 33 L, Glucose 209 H, Calcium 7.7 L, Phosphorus 3.0 , Magnesium 2.1, Total Bilirubin 0.2, AST 16 L, ALT 42, Albumin 2.7 L, APTT > 120 *H, CBC w Diff NO MAN DIFF REQ, RBC 3.81 L, MCV 82.3, MCH 26.7 L, RDW 17.6 H, MPV 7.5, Gran % 91.7 H, Lymphocytes % 3.1 L, Monocytes % 5.1, Eosinophils % 0, Basophils % 0.1, Absolute Granulocytes 14.2 H, Absolute Lymphocytes 0.5 L , Absolute Monocytes 0.8 H, Absolute Eosinophils 0, Absolute Basophils 0, PUBS MCHC 32.4 L 08/12/16 2300: APTT 57 H 08/12/16 1315: APTT 50 H 08/12/16 0445: Anion Gap 12, Estimated GFR 35 L, Glucose 224 H, Calcium 7.8 L, Phosphorus 4.2, Magnesium 2.1, Total Bilirubin 0.2, AST 14 L, ALT 27, Albumin 2.7 L, APTT > 120 *H, CBC w Diff NO MAN DIFF REQ, RBC 3.90 L, MCV 83.0, MCH 26.7 L, RDW 17.9 H, MPV 7.4, Gran % 94.2 H, Lymphocytes % 1.7 L, Monocytes % 4.1, Eosinophils % 0, Basophils % 0 L, Absolute Granulocytes 15.7 H, Absolute Lymphocytes 0.3 L, Absolute Monocytes 0.7 H, Absolute Eosinophils 0, Absolute Basophils 0, PUBS MCHC 32.2 L 08/11/16 1745: Troponin I 0.03, APTT 61 H 08/11/16 1014: pH 7.43, pCO2 37, pO2 90, HCO3 24, ABG O2 Sat (Measured) 97.0, P-50 (Temp Corrected) YES, Carboxyhemoglobin 0.3 L, O2 Concentration % 40%, Temperature 96.4 L, O2 Delivery Method T PIECE, Phlebotomy Draw Site RIGHT RADIAL 08/11/16 0346: Anion Gap 13, Estimated GFR 28 L, Glucose 182 H, Calcium 8.4, Phosphorus 4.7 H, Magnesium 2.0, Total Bilirubin 0.3, AST 18, ALT 37, Albumin 2.8 L, APTT 65 H, CBC w Diff MAN DIFF ORDERED, RBC 3.88 L, MCV 82.5, MCH 26.2 L, RDW 17.3 H, MPV 7.4, Gran % 92.4 H, Lymphocytes % 3.5 L, Monocytes % 4.0, Eosinophils % 0, Basophils % 0.1, Absolute Granulocytes 16.6 H, Absolute Lymphocytes 0.6 L, Absolute Monocytes 0.7 H, Absolute Eosinophils 0, Absolute Basophils 0, Platelet Estimate ADEQUATE, Ovalocytes 1+, PUBS MCHC 31.8 L 08/10/16 1700: Anion Gap 12, Estimated GFR 29 L, Glucose 187 H, Calcium 8.1 L, Phosphorus 4.8 H, Magnesium 1.9, Total Bilirubin 0.3, AST 22, ALT 36, Albumin 2.8 L, APTT 69 H Microbiology 08/13 1011 STOOL: Clostridium difficile Toxin A & B - COLB Microbiology 08/13 1011 STOOL: Clostridium difficile Toxin A & B - COLB
[2016-08-13 16:00] VITALS: BP 122/64
[2016-08-14] VITALS: BP 140/70
[2016-08-14 05:57] LABS: ABSOLUTE BASOPHIL COUNT 0 /CUMM (0.0-0.2); ABSOLUTE EOSINOPHIL COUNT 0 /CUMM (0.0-0.7); ABSOLUTE GRANULOCYTE CT 25.1 /CUMM (1.4-6.5); ABSOLUTE LYMPH COUNT 0.6 /CUMM (1.2-3.4); ABSOLUTE MONOCYTE COUNT 0.8 /CUMM (0.10-0.60); BASOPHIL % 0.1 % (0.0-2.0); EOSINOPHIL % 0.1 % (0-5); GRANULOCYTE % 94.5 % (42.2-75.2); HEMATOCRIT 31.9 % (42-52); MEAN CORPUSCULAR HGB 26.5 PG (27.0-31.0); MEAN CORPUSCULAR HGB CONC 31.9 G/DL (33.0-37.0); MEAN PLATELET VOLUME 6.9 FL (7.4-10.4); PLATELET COUNT 331 /CUMM (130-400); RBC DISTRIBUTION WIDTH 17.8 % (11.5-14.5); RED BLOOD CELL CT 3.85 /CUMM (4.70-6.10)
[2016-08-14 06:02] LABS: WHITE BLOOD CELL COUNT 26.6 /CUMM (4.8-10.8)
--- NOTE | 2016-08-14 07:49 | PN- Housestaff ---
HUNTER LONGORIA,ANTOINETTE 08/14/16 0749: Subjective Follow-up For: EPISTAXIS C DIFF Subjective: Seen and examined at bedside. He still endorses 3 episoded of loose stool, however, he reports stool is slightly more formed compared to yesterday. No report of fever or chills. No aother acute o/n event reported by nursing staff. Review of Systems Constitutional: Reports: see HPI. Objective Last 24 Hrs of Vital Signs/I&O Vital Signs Date Time Temp Pulse Resp B/P B/P Pulse O2 O2 Flow FiO2 Mean Ox Delivery Rate 08/14 0935 112 136/68 08/14 0935 112 136/68 08/14 0832 95 Room Air 08/14 0000 98.1 98 14 140/70 91 Room Air Room Air 08/13 2047 95 Room Air Room Air 08/13 1850 126 126/65 08/13 1600 98.2 108 18 122/64 94 Room Air 08/13 1200 94 Room Air Intake & Output 08/14 1600 08/14 0800 08/14 0000 Intake Total 200 1100 Output Total Balance 200 1100 Intake, IV 100 Intake, Oral 200 1000 Number 1 Bowel Movements Physical Exam General Appearance: Alert, Oriented X3, Cooperative Skin: No Significant Lesion Cardiovascular: Regular Rate, paced rythm Lungs: minimal wheezes b/l compared to yesterday. Abdomen: Normal Bowel Sounds, Soft, No Tenderness Neurological: Normal Gait, Normal Speech, Strength at 5/5 X4 Ext, Normal Tone Extremities: No Tenderness/Swelling Assessment/Plan Assessment: This is a 76yo genetleman with past medical history of CHF, A. fib, pacemaker and IVCD was admitted for FIORDALIZA and anemia due to epistaxis, had respiratory distress last night night despite being on 100% nonrebreather mask. CXR obtained was remarkable for pulmonary edema, AG suggested hypoxia. Patient was a candidate for BiPAP as he was presenting with pulmonary edema of cardiac origin. However due to his nasal packings, BiPAP was not feasible and therefore patient had to be intubated. Impression and Plan #C.diff Stool toxin positive for c diff in the setting of recent ABX use (Augmentin and then Unasyn) and 2 day hx of diarrhea. Will treat as severe C diff given elevated Creatine and WBC of 26.6 (pt being on solumedrol 40 mg could be considered as an argument in favor of a non infectious cause of worsening leukocytosis, however the fact that pt was on Solumedrol since last week with the dose now decreased, and the timing of 71 % increment of WBC coinciding with diarrhea symptoms, leukocyte demargination from steroid use is not likely the cause). Will start patient on Vancomycin 125mg q 6, institute contact precautions, and continue to monitor CBC and clinical condition. #Acute hypoxemic respiratory failure requiring intubation. Resolved. Most probable etiology is pulmonary edema as evident by worsening finding on chest x-ray. There is also a possibility of aspiration as patient has nasal packing from his epistaxis. Does have an elevated proBNP which indicates decompensated heart failure. TRALI unlikely due to timing and baseline elevated proBNP. #Epistaxis Most likely aggravated by anticoagulant use, controlled after nasal packing. No acute worsening within the past 48 hours. I personally contacted ENT (Dr Moreau office) on 08/13 who have no objection starting NOACs since pt has been epistaxis free for more than 48 hours. #History of atrial fibrillation Pt HR better controlled with 240mg cardizem with some intermittent bursts above 100. If HR becomes elevated above 110 anduncontrolled we'll consider starting home medication of labetalol. Continuing Xarelto 15mg daily. Percent history of BPH Will hold off Flomax for now Problem List: 1. ATRIAL FIBRILATION 2. Acute respiratory failure with hypoxia 3. Leukocytosis 4. Epistaxis Pain Ratin Pain Location: none Pain Goal: Remain pain free Pain Plan: per pathway Tomorrow's Labs & Rationales: BEP-FIORDALIZA CBC-ACTIVE C DIFF ON ABX ARY LONGORIA,[facility] 08/14/16 1726: Attending MD Review Statement Attending Statement Attending MD Statement: examined this patient, discuss w/resident/PA/EXECUTIVE RECEPTIONIST, agreed w/resident/PA/EXECUTIVE RECEPTIONIST, discussed with family, reviewed EMR data (avail), discussed with nursing, discussed with case mgmt, reviewed images, amended to note Attending Assessment/Plan: * Relatively stable * C. diff positive * REc po vanco dc all other abx agg pulm toilet will follow
[2016-08-14 08:00] VITALS: BP 98/60
--- NOTE | 2016-08-14 09:26 | PN- Cardiology ---
Subjective Subjective: The patient is stable from a respiratory standpoint. He has not had any further epistaxis. He is back on Xarelto at a lower dose due to renal dysfunction. He is on Cardizem 240 mg daily at this time. He remains in atrial fibrillation. His rate is currently in the low 100s. Objective Vital Signs and I&Os Vital Signs Date Time Temp Pulse Resp B/P B/P Pulse O2 O2 Flow FiO2 Mean Ox Delivery Rate 08/14 0832 95 Room Air 08/14 0000 98.1 98 14 140/70 91 Room Air Room Air 08/13 2047 95 Room Air Room Air 08/13 1850 126 126/65 08/13 1600 98.2 108 18 122/64 94 Room Air 08/13 1200 94 Room Air Intake & Output 08/14 1600 08/14 0800 08/14 0000 08/13 1600 08/13 0800 08/13 0000 Intake Total 200 1100 892 463.4 791 Output Total 300 400 350 Balance 200 1100 592 63.4 441 Intake, IV 100 212 313.4 351 Intake, Oral 200 1000 680 150 440 Number 1 3 1 1 Bowel Movements Output, Urine 300 400 350 Patient 189 lb Weight Physical Exam: HEENT exam is normal Chest reveals decreased breath sounds and mild expiratory wheezing Heart reveals irregular rhythm at a moderate rate and no murmurs Extremities no edema Current Medications: Current Medications Sig/Clare Start time Last Medication Dose Route Stop Time Status Admin Albuterol Sulfate 3 ML TID 08/07 1057 AC 08/14 INH 0830 Albuterol Sulfate 2 PUF Q6P PRN 08/06 2115 AC INH Amiodarone HCl 200 MG DAILY 08/07 1000 AC 08/13 PO 0902 Ampicillin Sodium/ 1,500 MG Q6 08/10 1200 DC 08/13 Sulbactam Sodium IV 0600 Sodium Chloride 100 ML Budesonide/ 2 PUF BID 08/07 1000 AC 08/13 Formoterol Fumarate INH 2144 Diltiazem HCl 240 MG DAILY 08/14 1000 AC PO Diltiazem HCl 60 MG ONCE ONE 08/13 1615 DC 08/13 PO 08/13 161 1850 Diltiazem HCl 180 MG DAILY 08/13 1000 DC 08/13 PO 0902 Guaifenesin 600 MG Q12 08/13 2200 AC 08/13 PO 2143 Heparin Sodium 25,000 UNIT Q24H 08/10 0900 DC 08/12 (Porcine) IV 1444 Sodium Chloride 500 ML Insulin Aspart 0 TIDAC 08/12 1200 AC 08/13 SC 1750 Lactobacillus 1 CAP BID 08/13 1000 AC 08/13 Acidophilus PO 2143 Magnesium Oxide 400 MG DAILY 08/10 1038 DC 08/12 PO 0917 Methylprednisolone 40 MG DAILY 08/13 1000 AC 08/13 IV 0903 Omeprazole 40 MG DAILY AC 08/13 0700 AC 08/14 PO 0538 Pravastatin Sodium 80 MG 1700 08/07 1700 AC 08/13 PO 1720 Rivaroxaban 15 MG 1700 08/13 1700 AC 08/13 PO 1720 Tamsulosin HCl 0.4 MG DAILY 08/06 2118 AC 08/13 PO 0902 Vancomycin HCl 1,000 MG ONCE ONE 08/13 1015 CA 08/13 Sodium Chloride 250 ML IV 08/13 1114 1620 Results Last 48 Hrs of Labs/Mics: Laboratory Tests 08/14/16 0530: Anion Gap 8, Estimated GFR 31 L, Glucose 182 H, Calcium 7.9 L, Phosphorus 3.6 , Magnesium 2.2, Total Bilirubin 0.2, AST 11 L, ALT 43, Albumin 2.5 L, CBC w Diff MAN DIFF ORDERED, RBC 3.85 L, MCV 83.0, MCH 26.5 L, RDW 17.8 H, MPV 6.9 L, Gran % 94.5 H, Lymphocytes % 2.3 L, Monocytes % 3.0, Eosinophils % 0.1, Basophils % 0.1, Absolute Granulocytes 25.1 H, Segmented Neutrophils 85 H, Band Neutrophils 9 H, Absolute Lymphocytes 0.6 L, Lymphocytes 3 L, Monocytes 3, Absolute Monocytes 0.8 H, Absolute Eosinophils 0, Absolute Basophils 0, Platelet Estimate ADEQUATE, Polychromasia 1+, Hypochromic-Microcytic 1+, PUBS MCHC 31.9 L 08/13/16 1300: APTT Cancelled 08/13/16 0430: Anion Gap 9, Estimated GFR 33 L, Glucose 209 H, Calcium 7.7 L, Phosphorus 3.0 , Magnesium 2.1, Total Bilirubin 0.2, AST 16 L, ALT 42, Albumin 2.7 L, APTT > 120 *H, CBC w Diff NO MAN DIFF REQ, RBC 3.81 L, MCV 82.3, MCH 26.7 L, RDW 17.6 H, MPV 7.5, Gran % 91.7 H, Lymphocytes % 3.1 L, Monocytes % 5.1, Eosinophils % 0, Basophils % 0.1, Absolute Granulocytes 14.2 H, Absolute Lymphocytes 0.5 L , Absolute Monocytes 0.8 H, Absolute Eosinophils 0, Absolute Basophils 0, PUBS MCHC 32.4 L 08/12/16 2300: APTT 57 H 08/12/16 1315: APTT 50 H Assessment/Plan Assessment/Plan The patient has improved with regards to his epistaxis. His respiratory status is good at this time. He is back on oral anticoagulants. His heart rate is improved although still slightly elevated. I would continue to watch him on this dose of medication and make further adjustments if his heart rate remains elevated. His blood pressure is good at this time so I think we can hold off on restarting labetalol. I am hopeful that his rhythm will return to sinus but if it does not we might consider cardioversion. Continue telemetry? Yes
--- NOTE | 2016-08-14 09:57 | PN- Att Addend ---
Attending Addendum Attending Brief Note Patient comfortably in bed in no acute bleeding not short of breath his heart is slightly elevated he is on Cardizem and per cardiology's recommendations my restart his beta georgi which he was taking at home. His vital signs otherwise stable. Only new finding is an elevation in his white count question of etiology. We'll continue telemetry monitoring. Check cultures. Get out of bed. 24 TOTALS 08/14 0000 08/13 0000 Intake Total 2455.4 2275 Output Total 700 950 Balance 1755.4 1325 Intake, IV 625.4 1005 Intake, Oral 1830 1270 Number 5 4 Bowel Movements Output, Urine 700 950 Patient 189 lb Weight Current Medications Sig/Clare Start time Last Medication Dose Route Stop Time Status Admin Albuterol Sulfate 3 ML TID 08/07 1057 AC 08/14 INH 0830 Albuterol Sulfate 2 PUF Q6P PRN 08/06 2115 AC INH Amiodarone HCl 200 MG DAILY 08/07 1000 AC 08/14 PO 0935 Ampicillin Sodium/ 1,500 MG Q6 08/10 1200 DC 08/13 Sulbactam Sodium IV 0600 Sodium Chloride 100 ML Budesonide/ 2 PUF BID 08/07 1000 AC 08/14 Formoterol Fumarate INH 0935 Diltiazem HCl 240 MG DAILY 08/14 1000 AC 08/14 PO 0935 Diltiazem HCl 60 MG ONCE ONE 08/13 1615 DC 08/13 PO 08/13 1616 1850 Diltiazem HCl 180 MG DAILY 08/13 1000 DC 08/13 PO 0902 Guaifenesin 600 MG Q12 08/13 2200 AC 08/14 PO 0935 Heparin Sodium 25,000 UNIT Q24H 08/10 0900 DC 08/12 (Porcine) IV 1444 Sodium Chloride 500 ML Insulin Aspart 0 TIDAC 08/12 1200 AC 08/14 SC 0934 Lactobacillus 1 CAP BID 08/13 1000 AC 08/14 Acidophilus PO 0935 Magnesium Oxide 400 MG DAILY 08/10 1038 DC 08/12 PO 0917 Methylprednisolone 40 MG DAILY 08/13 1000 AC 08/14 IV 0934 Omeprazole 40 MG DAILY AC 08/13 0700 AC 08/14 PO 0538 Pravastatin Sodium 80 MG 1700 08/07 1700 AC 08/13 PO 1720 Rivaroxaban 15 MG 1700 08/13 1700 AC 08/13 PO 1720 Tamsulosin HCl 0.4 MG DAILY 08/068 AC 08/14 PO 0935 Vancomycin HCl 1,000 MG ONCE ONE 08/13 1015 DC 08/13 Sodium Chloride 250 ML IV 08/13 1114 1620 Laboratory Tests 08/14/16 0530: Anion Gap 8, Estimated GFR 31 L, Glucose 182 H, Calcium 7.9 L, Phosphorus 3.6 , Magnesium 2.2, Total Bilirubin 0.2, AST 11 L, ALT 43, Albumin 2.5 L, CBC w Diff MAN DIFF ORDERED, RBC 3.85 L, MCV 83.0, MCH 26.5 L, RDW 17.8 H, MPV 6.9 L, Gran % 94.5 H, Lymphocytes % 2.3 L, Monocytes % 3.0, Eosinophils % 0.1, Basophils % 0.1, Absolute Granulocytes 25.1 H, Segmented Neutrophils 85 H, Band Neutrophils 9 H, Absolute Lymphocytes 0.6 L, Lymphocytes 3 L, Monocytes 3, Absolute Monocytes 0.8 H, Absolute Eosinophils 0, Absolute Basophils 0, Platelet Estimate ADEQUATE, Polychromasia 1+, Hypochromic-Microcytic 1+, PUBS MCHC 31.9 L 08/13/16 1300: APTT Cancelled 08/13/16 0430: Anion Gap 9, Estimated GFR 33 L, Glucose 209 H, Calcium 7.7 L, Phosphorus 3.0 , Magnesium 2.1, Total Bilirubin 0.2, AST 16 L, ALT 42, Albumin 2.7 L, APTT > 120 *H, CBC w Diff NO MAN DIFF REQ, RBC 3.81 L, MCV 82.3, MCH 26.7 L, RDW 17.6 H, MPV 7.5, Gran % 91.7 H, Lymphocytes % 3.1 L, Monocytes % 5.1, Eosinophils % 0, Basophils % 0.1, Absolute Granulocytes 14.2 H, Absolute Lymphocytes 0.5 L , Absolute Monocytes 0.8 H, Absolute Eosinophils 0, Absolute Basophils 0, PUBS MCHC 32.4 L 08/12/16 2300: APTT 57 H 08/12/16 1315: APTT 50 H Microbiology Date/Time Procedure - Status Source Growth 08/13 190 Clostridium difficile Toxin A & B - RECD STOOL
--- NOTE | 2016-08-14 10:12 | NUR ---
Physical Therapy. Pt now I in the room and reports he feels he is back to baseline. RN confirmed that pt has been OOB I'ly w/ stable gait all morning. PT will not follow. Recommend [facility] upon d/c.
[2016-08-14 16:54] VITALS: BP 138/68
[2016-08-14 21:54] VITALS: BP 110/60
[2016-08-15 06:50] VITALS: BP 120/52
[2016-08-15 08:06] LABS: ABSOLUTE BASOPHIL COUNT 0 /CUMM (0.0-0.2); ABSOLUTE EOSINOPHIL COUNT 0 /CUMM (0.0-0.7); ABSOLUTE GRANULOCYTE CT 24.7 /CUMM (1.4-6.5); ABSOLUTE LYMPH COUNT 0.5 /CUMM (1.2-3.4); ABSOLUTE MONOCYTE COUNT 0.5 /CUMM (0.10-0.60); BASOPHIL % 0 % (0.0-2.0); EOSINOPHIL % 0 % (0-5); GRANULOCYTE % 96.2 % (42.2-75.2); HEMATOCRIT 32.1 % (42-52); MEAN CORPUSCULAR HGB CONC 32.8 G/DL (33.0-37.0); MEAN CORPUSCULAR VOLUME 82.2 FL (80.0-94.0); MEAN PLATELET VOLUME 7.7 FL (7.4-10.4); PLATELET COUNT 321 /CUMM (130-400); RBC DISTRIBUTION WIDTH 17.9 % (11.5-14.5); RED BLOOD CELL CT 3.91 /CUMM (4.70-6.10); WHITE BLOOD CELL COUNT 25.7 /CUMM (4.8-10.8)
--- NOTE | 2016-08-15 09:24 | PN- Cardiology ---
Subjective Subjective: The patient is now on telemetry. He remains in atrial fibrillation. His rate is in the low 100s. He is on Cardizem 240 mg daily. His blood pressure is normal. He now has C. difficile and is on vancomycin by mouth and is still having some mild diarrhea. He is complaining of insomnia at this time. Objective Vital Signs and I&Os Vital Signs Date Time Temp Pulse Resp B/P B/P Pulse O2 O2 Flow FiO2 Mean Ox Delivery Rate 08/15 0843 93 Room Air 08/15 0800 Room Air 08/15 0650 97.9 102 20 120/52 96 Room Air 08/15 0000 Room Air 08/14 2154 97.8 108 18 110/60 95 Room Air 08/14 1914 97 Room Air Room Air 08/14 1654 97.5 110 20 138/68 95 Room Air 08/14 1600 Room Air 08/14 0935 112 136/68 08/14 0935 112 136/68 Intake & Output 08/15 1600 08/15 0800 08/15 0000 08/14 1600 08/14 0800 08/14 0000 Intake Total 500 715 708 152 2345 Output Total Balance 500 715 071 003 3756 Intake, IV 0 100 Intake, Oral 500 715 209 694 2255 Number 1 5 1 Bowel Movements Physical Exam: He is in no distress. HEENT exam normal Chest decreased breath sounds no wheezing Heart irregular rhythm moderate rate no murmurs Extremities no edema Current Medications: Current Medications Sig/Clare Start time Last Medication Dose Route Stop Time Status Admin Albuterol Sulfate 3 ML TID 08/07 1057 AC 08/15 INH 0818 Albuterol Sulfate 2 PUF Q6P PRN 08/06 2115 AC INH Amiodarone HCl 200 MG DAILY 08/07 1000 AC 08/14 PO 0935 Budesonide/ 2 PUF BID 08/07 1000 AC 08/14 Formoterol Fumarate INH 2057 Diltiazem HCl 240 MG DAILY 08/14 1000 AC 08/14 PO 0935 Guaifenesin 600 MG Q12 08/13 2200 AC 08/14 PO 5 Insulin Aspart 0 TIDAC 08/12 1200 AC 08/15 SC 0902 Lactobacillus 1 CAP BID 08/13 1000 AC 08/14 Acidophilus PO 2055 Methylprednisolone 40 MG DAILY 08/13 1000 AC 08/14 IV 0934 Metronidazole 500 MG Q8 08/14 1400 CAN PO Omeprazole 40 MG DAILY AC 08/13 0700 08/15 PO 0535 Pravastatin Sodium 80 MG 08/07 170 AC 08/14 PO 1721 Ramelteon 8 MG AT BEDTIME 08/15 2199 08/14 PO 2259 Rivaroxaban 15 MG 08/13 1700 AC 08/14 PO 1721 Tamsulosin HCl 0.4 MG DAILY 08/06 2117 08/14 PO 0935 Vancomycin HCl 125 MG Q6 08/14 1301 08/15 PO 0534 Results Last 48 Hrs of Labs/Mics: Laboratory Tests 08/15/16 0630: Anion Gap 9, Estimated GFR 31 L, BUN/Creatinine Ratio 31.4 H, CBC w Diff MAN DIFF ORDERED, RBC 3.91 L, MCV 82.2, MCH 27.0, RDW 17.9 H, MPV 7.7, Gran % 96.2 H, Lymphocytes % 1.9 L, Monocytes % 1.9, Eosinophils % 0, Basophils % 0 L, Absolute Granulocytes 24.7 H, Segmented Neutrophils 89 H, Band Neutrophils 3, Absolute Lymphocytes 0.5 L, Lymphocytes 4 L, Monocytes 4, Absolute Monocytes 0.5, Absolute Eosinophils 0, Absolute Basophils 0, Platelet Estimate VERIFIED BY SMEAR, Normocytic RBCs VERIFIED, Normochromic RBCs VERIFIED, PUBS MCHC 32.8 L 08/14/16 0530: Anion Gap 8, Estimated GFR 31 L, Glucose 182 H, Calcium 7.9 L, Phosphorus 3.6 , Magnesium 2.2, Total Bilirubin 0.2, AST 11 L, ALT 43, Albumin 2.5 L, CBC w Diff MAN DIFF ORDERED, RBC 3.85 L, MCV 83.0, MCH 26.5 L, RDW 17.8 H, MPV 6.9 L, Gran % 94.5 H, Lymphocytes % 2.3 L, Monocytes % 3.0, Eosinophils % 0.1, Basophils % 0.1, Absolute Granulocytes 25.1 H, Segmented Neutrophils 85 H, Band Neutrophils 9 H, Absolute Lymphocytes 0.6 L, Lymphocytes 3 L, Monocytes 3, Absolute Monocytes 0.8 H, Absolute Eosinophils 0, Absolute Basophils 0, Platelet Estimate ADEQUATE, Polychromasia 1+, Hypochromic-Microcytic 1+, PUBS MCHC 31.9 L 08/13/16 1300: APTT Cancelled Microbiology 06/26 1900 STOOL: Clostridium difficile Toxin A & B - COMP CLOSTRIDIUM DIFFICILE Assessment/Plan Assessment/Plan The patient has improved with regards to his epistaxis. His respiratory status is good at this time. He is back on oral anticoagulants. His heart rate is improved although still slightly elevated. I recommend increasing his Cardizem to 360 mg daily. I would not restart labetalol at this time because his blood pressure is not elevated. Once his heart rate is better controlled he can be discharged. I will decide whether to consider cardioversion on him as an outpatient if he remains in atrial fibrillation. Continue telemetry? Yes
--- NOTE | 2016-08-15 10:00 | NUR ---
PATIENT CALLED FOR INCREASED SOB. PATIENT WAS WASHING UP IN BATHROOM. PATIENT SITTING AT SIDE OF BED. OXYGEN SATURATION ON ROOM AIR = 98%. SYMBICORT INHALER GIVEN. RESPIRATORY THERAPIST CALLED. PATIENT REPORTED FEELING BETTER AFTER RESTING AT SIDE OF BED AND AFTER INHALER. WILL CONTINUE TO MONITOR.
--- NOTE | 2016-08-15 12:25 | PN- Housestaff ---
Subjective Follow-up For: epistaxis Decompensated heart failure Atrial fibrillation Acute kidney injury C. difficile Subjective: This morning patient is alert, awake and oriented. He is complaining of some cough and bringing up clear phlegm. Denies any fever, chest pain or discomfort, palpitations, dizziness or lightheadedness. He is eating and drinking okay. He is complaining of insomnia. Review of Systems Constitutional: Reports: see HPI. Objective Last 24 Hrs of Vital Signs/I&O Vital Signs Date Time Temp Pulse Resp B/P B/P Pulse O2 O2 Flow FiO2 Mean Ox Delivery Rate 08/15 1104 102 120/52 08/15 1104 102 120/52 08/15 0843 93 Room Air 08/15 0800 Room Air 08/15 0650 97.9 102 20 120/52 96 Room Air 08/15 0000 Room Air 08/14 2154 97.8 108 18 110/60 95 Room Air 08/14 1914 97 Room Air Room Air 08/14 1654 97.5 110 20 138/68 95 Room Air 08/14 1600 Room Air Intake & Output 08/15 1600 08/15 0800 08/15 0000 Intake Total 500 715 Output Total Balance 500 715 Intake, Oral 500 715 Number 1 Bowel Movements Physical Exam General Appearance: Alert, Oriented X3, Cooperative, No Acute Distress Neck: Supple Cardiovascular: irregularly irregular Lungs: Clear to Auscultation Abdomen: Normal Bowel Sounds, Soft, No Tenderness Extremities: No Edema Current Medications: Current Medications Sig/Clare Start time Last Medication Dose Route Stop Time Status Admin Albuterol Sulfate 3 ML TID 08/07 1057 AC 08/15 INH 0818 Albuterol Sulfate 2 PUF Q6P PRN 08/06 2115 AC INH Amiodarone HCl 200 MG DAILY 08/07 1000 AC 08/15 PO 1104 Budesonide/ 2 PUF BID 08/07 1000 AC 08/15 Formoterol Fumarate INH 1000 Diltiazem HCl 360 MG DAILY 08/16 1000 AC PO Diltiazem HCl 240 MG DAILY 08/14 1000 DC 08/15 PO 1105 Guaifenesin 600 MG Q12 08/13 2200 AC 08/15 PO 1104 Insulin Aspart 0 TIDAC 08/12 1200 AC 08/15 SC 1159 Lactobacillus 1 CAP BID 08/13 1000 AC 08/15 Acidophilus PO 1104 Methylprednisolone 40 MG DAILY 08/13 1000 DC 08/14 IV 0934 Metronidazole 500 MG Q8 08/14 1400 CAN PO Omeprazole 40 MG DAILY AC 08/13 0700 AC 08/15 PO 0535 Pravastatin Sodium 80 MG 1700 08/07 1700 AC 08/14 PO 1721 Prednisone 10 MG ONCE ONE 08/17 1015 AC PO 08/17 1016 Prednisone 20 MG ONCE ONE 08/16 1015 AC PO 08/16 1016 Ramelteon 8 MG AT BEDTIME 08/15 2200 AC 08/14 PO 2259 Rivaroxaban 15 MG 1700 08/13 1700 AC 08/14 PO 1721 Tamsulosin HCl 0.4 MG DAILY 08/06 2118 AC 08/15 PO 1104 Vancomycin HCl 125 MG Q6 08/14 1301 AC 08/15 PO 1103 Last 24 Hrs of Lab/[place] Results Last 24 Hrs of Labs/Mics: Laboratory Tests 08/15/16 0630: Anion Gap 9, Estimated GFR 31 L, BUN/Creatinine Ratio 31.4 H, CBC w Diff MAN DIFF ORDERED, RBC 3.91 L, MCV 82.2, MCH 27.0, RDW 17.9 H, MPV 7.7, Gran % 96.2 H, Lymphocytes % 1.9 L, Monocytes % 1.9, Eosinophils % 0, Basophils % 0 L, Absolute Granulocytes 24.7 H, Segmented Neutrophils 89 H, Band Neutrophils 3, Absolute Lymphocytes 0.5 L, Lymphocytes 4 L, Monocytes 4, Absolute Monocytes 0.5, Absolute Eosinophils 0, Absolute Basophils 0, Platelet Estimate VERIFIED BY SMEAR, Normocytic RBCs VERIFIED, Normochromic RBCs VERIFIED, PUBS MCHC 32.8 L Assessment/Plan Assessment: Mr Caldwell is a 76-year-old man who is known to be in his usual state of health until a week ago. He has a past medical history of recurrent nosebleeds/ epistaxis (one year ago), atrial fibrillation on Xarelto, coronary artery disease (history of multiple stents), implantation of pacemaker/defibrillator, COPD. He was transferred to ICU because of acute hypoxic respiratory failure secondary to acute decompensated heart failure and flash pulmonary edema. He was intubated and diuresed. After stabilization he was transferred back to telemetry floor. Problem list 1. Epistaxis 2. Acute hypoxic respiratory failure secondary to decompensated heart failure. ECHO 07/17 mild posterolateral hypokinesis with ejection fraction 55-60%. Mild- to-moderate concentric left ventricular hypertrophy. Moderate left atrial dilatation. Moderate pulmonary hypertension. 3. H/O Atrial fibrillation on xarelto 4. Acute kidney injury. Baseline creatinine 1.7. Today 2.1 5. C. difficile PLAN * Monitor vitals closely * Continue telemetry monitoring and watch for arrhythmias * Increased dose of Cardizem to 360 mg daily * Plan for outpatient cardioversion if persistent A. fib * Continue Xarelto * rapid taper of steroids * Continue by mouth vancomycin * Continue TRC nebs * Monitor kidney functions daily * Avoid nephrotoxins * DVT prophylaxis * Full code Problem List: 1. C. difficile diarrhea 2. Acute respiratory failure with hypoxia 3. Acute renal failure Pain Ratin Pain Location: none Pain Goal: Pain 4 or less Pain Plan: tylenol Tomorrow's Labs & Rationales: cbc,bep DVT/Prophylaxis: pharmacological
--- NOTE | 2016-08-15 14:11 | PN- Pulmonary ---
Subjective HPI/Critical Care Issues: This morning patient is alert, awake and oriented. He is complaining of some cough and bringing up clear phlegm. Denies any fever, chest pain or discomfort, palpitations, dizziness or lightheadedness. He is eating and drinking okay. He is complaining of insomnia. Review of Systems Constitutional: Reports: see HPI. Objective Current Medications: Current Medications Sig/Clare Start time Last Medication Dose Route Stop Time Status Admin Albuterol Sulfate 3 ML TID 08/07 1057 AC 08/15 INH 1305 Albuterol Sulfate 2 PUF Q6P PRN 08/06 2115 AC INH Amiodarone HCl 200 MG DAILY 08/07 1000 AC 08/15 PO 1104 Budesonide/ 2 PUF BID 08/07 1000 AC 08/15 Formoterol Fumarate INH 1000 Diltiazem HCl 360 MG DAILY 08/16 1000 AC PO Diltiazem HCl 240 MG DAILY 08/14 1000 DC 08/15 PO 1105 Guaifenesin 600 MG Q12 08/13 2200 AC 08/15 PO 1104 Insulin Aspart 0 TIDAC 08/12 1200 AC 08/15 SC 1159 Lactobacillus 1 CAP BID 08/13 1000 AC 08/15 Acidophilus PO 1104 Melatonin 5 MG AT BEDTIME 08/15 2200 AC PO Methylprednisolone 40 MG DAILY 08/13 1000 DC 08/14 IV 0934 Omeprazole 40 MG DAILY AC 08/13 0700 AC 08/15 PO 0535 Pravastatin Sodium 80 MG 1700 08/07 1700 AC 08/14 PO 1721 Prednisone 10 MG ONCE ONE 08/17 1015 AC PO 08/17 1016 Prednisone 20 MG ONCE ONE 08/16 1015 AC PO 08/16 1016 Ramelteon 8 MG AT BEDTIME 08/15 2200 DC 08/14 PO 2259 Rivaroxaban 15 MG 1700 08/13 1700 AC 08/14 PO 1721 Tamsulosin HCl 0.4 MG DAILY 08/06 2118 AC 08/15 PO 1104 Vancomycin HCl 125 MG Q6 08/14 1301 AC 08/15 PO 1103 Vital Signs & I&O Last 24 Hrs of Vitals and I&O: Vital Signs Date Time Temp Pulse Resp B/P B/P Pulse O2 O2 Flow FiO2 Mean Ox Delivery Rate 08/15 1104 102 120/52 08/15 1104 102 120/52 08/15 0843 93 Room Air 08/15 0800 Room Air 08/15 0650 97.9 102 20 120/52 96 Room Air 08/15 0000 Room Air 08/14 2154 97.8 108 18 110/60 95 Room Air 08/14 1914 97 Room Air Room Air 08/14 1654 97.5 110 20 138/68 95 Room Air 08/14 1600 Room Air Intake & Output 08/15 1600 08/15 0800 08/15 0000 Intake Total 500 715 Output Total Balance 500 715 Intake, Oral 500 715 Number 1 Bowel Movements Impression/Plan Impression/Plan Impression/Plan: General Appearance: Intubated mildly sedated patient is appropriately following all commands bilateral nasal packing noted Skin Temp/Moisture Exam: Skin appears clear Cardiovascular: tachycardia, mild systolic murmur Lungs: Bilateral crackles with mild wheezing Abdomen: Normal Bowel Sounds, Soft No significant edema noted Moves all extremities Medications reviewed IMPRESSION This is a gentleman with paroxysmal atrial fibrillation on xeralto, significant COPD, on chronic anticoagulation as well, biventricular pacer for a previous wide-complex rhythm, previous coronary artery disease, who came in with significant epistaxis with bilateral packing other, suddenly went into acute hypoxemic respiratory failure requiring mechanical ventilation as he was unable to be given noninvasive ventilation due to bilateral nasal packing. He does also have significant pulmonary hypertension, mitral regurgitation, diabetes, previous gout and osteoarthritis. He does have significant COPD who is not currently on 24-hour oxygen with [id number] smoking history who has quit smoking few yrs ago now here in the ICU with the following issues. * REsolved Acute hypoxemic respiratory failure due to related to acute pulmonary edema in a gentleman with preserved ejection fraction with the no significant elevation in troponin with Pafib on amiodarone and was on anticoag (held tempororily for a short time for epistaxis) with biventricular pacer, consistent with acute diastolic heart failure with very significantly elevated proBNP. Prior to that pt had received multiple transfusions. S/p intubated and extubated now on room air * Cdiff colitis * Significant bilateral epistaxis with nasal packing, was on abx for this * Sig COPD with a right middle lobe bronchiectasis from his previous pneumonia with MRSA colonization. He also has been wheezing consistent with cardiac asthma with COPD exacerbation related to fluid overload * Paroxysmal atrial fibrillation with anticoagulation before, on amiodarone with biventricular pacer. 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 * Hypertension, gout, previous high blood sugar, previous gout. * Mild aortic aneurysm * BPH on Flomax RECOMMENDATION COnt vanco po Nebs Agg wean off steroids Will follow
[2016-08-15 14:47] VITALS: BP 138/68
--- NOTE | 2016-08-15 15:03 | PN- Att Addend ---
Attending Addendum Attending Brief Note Patient comfortable in bed monitor still in atrial fibrillation. Cardiology was suggested that maybe later on patient be cardioverted stools were positive for C differential now in the proper therapy for it patient is a febrile with no new oozing from the nose. We'll keep observation and reevaluate in the morning 24 TOTALS 08/15 0000 08/14 0000 Intake Total 1715 2455.4 Output Total 700 Balance 1715 1755.4 Intake, IV 0 625.4 Intake, Oral 1715 1830 Number 5 5 Bowel Movements Output, Urine 700 Patient 189 lb Weight Current Medications Sig/Clare Start time Last Medication Dose Route Stop Time Status Admin Albuterol Sulfate 3 ML TID 08/07 1057 AC 08/15 INH 1305 Albuterol Sulfate 2 PUF Q6P PRN 08/06 211 AC INH Amiodarone HCl 200 MG DAILY 08/07 1000 AC 08/15 PO 1104 Budesonide/ 2 PUF BID 08/07 1000 AC 08/15 Formoterol Fumarate INH 1000 Diltiazem HCl 360 MG DAILY 08/16 1000 AC PO Diltiazem HCl 240 MG DAILY 08/14 1000 DC 08/15 PO 1105 Guaifenesin 600 MG Q12 08/13 2200 AC 08/15 PO 1104 Insulin Aspart 0 TIDAC 08/12 1200 AC 08/15 SC 1159 Lactobacillus 1 CAP BID 08/13 1000 AC 08/15 Acidophilus PO 1104 Melatonin 5 MG AT BEDTIME 08/15 2200 AC PO Methylprednisolone 40 MG DAILY 08/13 1000 DC 08/14 IV 0934 Omeprazole 40 MG DAILY AC 08/13 0700 AC 08/15 PO 0535 Pravastatin Sodium 80 MG 1700 08/07 1700 AC 08/14 PO 1721 Prednisone 10 MG ONCE ONE 08/17 1015 AC PO 08/17 1016 Prednisone 20 MG ONCE ONE 08/16 1015 AC PO 08/16 1016 Ramelteon 8 MG AT BEDTIME 08/15 2200 DC 08/14 PO 2259 Rivaroxaban 15 MG 1700 08/13 1700 AC 08/14 PO 1721 Tamsulosin HCl 0.4 MG DAILY 08/06 2118 AC 08/15 PO 1104 Vancomycin HCl 125 MG Q6 08/14 1301 AC 08/15 PO 1103 Laboratory Tests 08/15/16 0630: Anion Gap 9, Estimated GFR 31 L, BUN/Creatinine Ratio 31.4 H, CBC w Diff MAN DIFF ORDERED, RBC 3.91 L, MCV 82.2, MCH 27.0, RDW 17.9 H, MPV 7.7, Gran % 96.2 H, Lymphocytes % 1.9 L, Monocytes % 1.9, Eosinophils % 0, Basophils % 0 L, Absolute Granulocytes 24.7 H, Segmented Neutrophils 89 H, Band Neutrophils 3, Absolute Lymphocytes 0.5 L, Lymphocytes 4 L, Monocytes 4, Absolute Monocytes 0.5, Absolute Eosinophils 0, Absolute Basophils 0, Platelet Estimate VERIFIED BY SMEAR, Normocytic RBCs VERIFIED, Normochromic RBCs VERIFIED, PUBS MCHC 32.8 L 08/14/16 0530: Anion Gap 8, Estimated GFR 31 L, Glucose 182 H, Calcium 7.9 L, Phosphorus 3.6 , Magnesium 2.2, Total Bilirubin 0.2, AST 11 L, ALT 43, Albumin 2.5 L, CBC w Diff MAN DIFF ORDERED, RBC 3.85 L, MCV 83.0, MCH 26.5 L, RDW 17.8 H, MPV 6.9 L, Gran % 94.5 H, Lymphocytes % 2.3 L, Monocytes % 3.0, Eosinophils % 0.1, Basophils % 0.1, Absolute Granulocytes 25.1 H, Segmented Neutrophils 85 H, Band Neutrophils 9 H, Absolute Lymphocytes 0.6 L, Lymphocytes 3 L, Monocytes 3, Absolute Monocytes 0.8 H, Absolute Eosinophils 0, Absolute Basophils 0, Platelet Estimate ADEQUATE, Polychromasia 1+, Hypochromic-Microcytic 1+, PUBS MCHC 31.9 L Microbiology 08/13 1899 STOOL: Clostridium difficile Toxin A & B - COMP CLOSTRIDIUM DIFFICILE
[2016-08-15 21:42] VITALS: BP 120/70
[2016-08-16 07:42] VITALS: BP 112/64
[2016-08-16 07:59] LABS: ABSOLUTE BASOPHIL COUNT 0 /CUMM (0.0-0.2); ABSOLUTE EOSINOPHIL COUNT 0.2 /CUMM (0.0-0.7); ABSOLUTE GRANULOCYTE CT 15.3 /CUMM (1.4-6.5); ABSOLUTE LYMPH COUNT 0.8 /CUMM (1.2-3.4); ABSOLUTE MONOCYTE COUNT 0.5 /CUMM (0.10-0.60); BASOPHIL % 0.1 % (0.0-2.0); GRANULOCYTE % 91.4 % (42.2-75.2); MEAN CORPUSCULAR HGB 26.6 PG (27.0-31.0); MEAN CORPUSCULAR HGB CONC 32.3 G/DL (33.0-37.0); MEAN CORPUSCULAR VOLUME 82.3 FL (80.0-94.0); MEAN PLATELET VOLUME 7.5 FL (7.4-10.4); PLATELET COUNT 311 /CUMM (130-400); RBC DISTRIBUTION WIDTH 18.1 % (11.5-14.5); RED BLOOD CELL CT 4.13 /CUMM (4.70-6.10); WHITE BLOOD CELL COUNT 16.7 /CUMM (4.8-10.8)
--- NOTE | 2016-08-16 09:16 | PN- Housestaff ---
Subjective Follow-up For: epistaxis Decompensated heart failure Atrial fibrillation Acute kidney injury C. difficile Subjective: This morning he is complaining of poor sleep last night and breathing difficulty this morning. He also reports wheezing, cough and bringing up clear phlegm. Denies fevers, chest pain or discomfort. His is still having watery diarrhea, 4 times since morning. Review of Systems Constitutional: Reports: see HPI. Objective Last 24 Hrs of Vital Signs/I&O Vital Signs Date Time Temp Pulse Resp B/P B/P Pulse O2 O2 Flow FiO2 Mean Ox Delivery Rate 08/16 0904 93 112/64 08/16 0904 93 112/64 08/16 0742 98.0 93 20 112/64 94 Room Air 08/16 0559 96 Room Air 08/15 2142 97.5 99 20 120/70 93 08/15 1915 97 Room Air 08/15 1447 97.4 112 20 138/68 94 Room Air 08/15 1104 102 120/52 08/15 1104 102 120/52 Intake & Output 08/16 1600 08/16 0800 08/16 0000 Intake Total 611 989 8012 Output Total Balance 290 662 2153 Intake, IV 10 Intake, Oral 733 367 9396 Physical Exam General Appearance: Alert, Oriented X3, Cooperative, No Acute Distress Neck: Supple Cardiovascular: irregular Lungs: Clear to Auscultation Abdomen: Normal Bowel Sounds, Soft, No Tenderness Extremities: No Edema Current Medications: Current Medications Sig/Clare Start time Last Medication Dose Route Stop Time Status Admin Albuterol Sulfate 3 ML TID 08/07 1057 AC 08/16 INH 0548 Albuterol Sulfate 2 PUF Q6P PRN 08/06 2115 AC INH Amiodarone HCl 200 MG DAILY 08/07 1000 AC 08/16 PO 0904 Budesonide/ 2 PUF BID 08/07 1000 AC 08/16 Formoterol Fumarate INH 0909 Diltiazem HCl 360 MG DAILY 08/16 1000 AC 08/16 PO 0904 Diltiazem HCl 240 MG DAILY 08/14 1000 DC 08/15 PO 1105 Guaifenesin 600 MG Q12 08/13 2200 AC 08/16 PO 0904 Insulin Aspart 0 TIDAC 08/12 1200 AC 08/16 SC 0837 Lactobacillus 1 CAP BID 08/13 1000 AC 08/16 Acidophilus PO 0904 Melatonin 5 MG AT BEDTIME 08/15 2199 AC 08/15 PO 2158 Methylprednisolone 40 MG DAILY 08/13 1000 DC 08/14 IV 0934 Omeprazole 40 MG DAILY AC 08/13 0700 AC 08/16 PO 0613 Pravastatin Sodium 80 MG 1700 08/07 1700 AC 08/15 PO 1657 Prednisone 10 MG ONCE ONE 08/17 1015 AC PO 08/17 1016 Prednisone 20 MG ONCE ONE 08/16 1015 AC 08/16 PO 08/16 1016 0905 Ramelteon 8 MG AT BEDTIME 08/15 2200 DC 08/14 PO 2259 Rivaroxaban 15 MG 1700 08/13 1700 AC 08/15 PO 1657 Tamsulosin HCl 0.4 MG DAILY 08/06 2118 AC 08/16 PO 0904 Vancomycin HCl 125 MG Q6 08/14 1301 AC 08/16 PO 0600 Last 24 Hrs of Lab/[place] Results Last 24 Hrs of Labs/Mics: Laboratory Tests 08/16/16 0632: Anion Gap 9, Estimated GFR 31 L, BUN/Creatinine Ratio 30.0 H, Magnesium Pending, CBC w Diff MAN DIFF ORDERED, WBC Pending, RBC Pending, Hgb Pending, Hct Pending, MCV Pending, MCH Pending, RDW Pending, Plt Count Pending, MPV Pending, Gran % Pending, Lymphocytes % Pending, Monocytes % Pending, Eosinophils % Pending, Basophils % Pending, Absolute Granulocytes Pending, Segmented Neutrophils Pending, Absolute Lymphocytes Pending, Absolute Monocytes Pending, Absolute Eosinophils Pending, Absolute Basophils Pending, PUBS MCHC Pending Assessment/Plan Assessment: Mr Caldwell is a 76-year-old man who is known to be in his usual state of health until a week ago. He has a past medical history of recurrent nosebleeds/ epistaxis (one year ago), atrial fibrillation on Xarelto, coronary artery disease (history of multiple stents), implantation of pacemaker/defibrillator, COPD. He was transferred to ICU because of acute hypoxic respiratory failure secondary to acute decompensated heart failure and flash pulmonary edema. He was intubated and diuresed. After stabilization he was transferred back to telemetry floor. Problem list 1. Epistaxis 2. Acute hypoxic respiratory failure secondary to decompensated heart failure. ECHO 07/17 mild posterolateral hypokinesis with ejection fraction 55-60%. Mild- to-moderate concentric left ventricular hypertrophy. Moderate left atrial dilatation. Moderate pulmonary hypertension. 3. H/O Atrial fibrillation on xarelto 4. Acute kidney injury. Baseline creatinine 1.7. Today 2.1 5. C. difficile on PO vanco PLAN * Monitor vitals closely. * Continue telemetry monitoring and watch for arrhythmias * Plan for outpatient cardioversion if persistent A. fib * Continue Xarelto * rapid taper of steroids * Continue by mouth vancomycin * Continue TRC nebs * Monitor kidney functions daily * Avoid nephrotoxins * DVT prophylaxis * Full code Problem List: 1. C. difficile diarrhea 2. Acute respiratory failure with hypoxia Pain Ratin Pain Location: none Pain Goal: Pain 4 or less Pain Plan: tylenol Tomorrow's Labs & Rationales: bep DVT/Prophylaxis: pharmacological
--- NOTE | 2016-08-16 09:56 | RADIOLOGY REPORT ---
EXAMINATION: XR PORTABLE CHEST CLINICAL INFORMATION: Shortness of breath, cough and wheezing. COMPARISON: CXR from 08/11/2016 and 08/12/2016. TECHNIQUE: Portable frontal view of the chest was obtained. FINDINGS: Lungs are hyperexpanded from emphysematous disease. Progressive clearing of previously noted opacity (likely atelectasis) in the left lower lobe. No pulmonary edema, newly developing consolidation, pneumothorax or overt pleural effusion. Cardiac silhouette is normal in size. The right atrial and biventricular pacing leads are in their expected positions. Bones are unremarkable. IMPRESSION: 1. Pulmonary emphysema. 2. No evidence of recurrent pulmonary edema or of a developing pneumonia.
--- NOTE | 2016-08-16 10:54 | PN- Att Addend ---
Attending Addendum Attending Brief Note Patient still not sleeping in no respiratory distress, but he stated he needed the treatment earlier. Vital signs are stable pulse a little slower after adjusting medications still having diarrhea, on treatment for C. difficile and can slowly coming down. No major changes on physical will continue observation monitor bowel movements monitoring blood work monitor telemetry. Current Medications Sig/Clare Start time Last Medication Dose Route Stop Time Status Admin Albuterol Sulfate 3 ML TID 08/07 1057 AC 08/16 INH 0548 Albuterol Sulfate 2 PUF Q6P PRN 08/06 2115 AC INH Amiodarone HCl 200 MG DAILY 08/07 1000 AC 08/16 PO 0904 Budesonide/ 2 PUF BID 08/07 1000 AC 08/16 Formoterol Fumarate INH 0909 Diltiazem HCl 360 MG DAILY 08/16 1000 AC 08/16 PO 0904 Diltiazem HCl 240 MG DAILY 08/14 1000 DC 08/15 PO 1105 Guaifenesin 600 MG Q12 08/13 2200 AC 08/16 PO 0904 Insulin Aspart 0 TIDAC 08/12 1200 AC 08/16 SC 0837 Lactobacillus 1 CAP BID 08/13 1000 AC 08/16 Acidophilus PO 0904 Melatonin 5 MG AT BEDTIME 08/15 2200 AC 08/15 PO 2158 Omeprazole 40 MG DAILY AC 08/13 0700 AC 08/16 PO 0613 Pravastatin Sodium 80 MG 1700 08/07 1700 AC 08/15 PO 1657 Prednisone 10 MG ONCE ONE 08/17 1015 AC PO 08/17 1016 Prednisone 20 MG ONCE ONE 08/16 1015 DC 08/16 PO 08/16 1016 0905 Ramelteon 8 MG AT BEDTIME 08/15 2200 DC 08/14 PO 2259 Rivaroxaban 15 MG 1700 08/13 1700 AC 08/15 PO 1657 Tamsulosin HCl 0.4 MG DAILY 08/06 2118 AC 08/16 PO 0904 Vancomycin HCl 125 MG Q6 08/14 1301 AC 08/16 PO 0600 Laboratory Tests 08/16/16 0632: Anion Gap 9, Estimated GFR 31 L, BUN/Creatinine Ratio 30.0 H, Magnesium 2.4 H , CBC w Diff MAN DIFF ORDERED, RBC 4.13 L, MCV 82.3, MCH 26.6 L, RDW 18.1 H, MPV 7.5, Gran % 91.4 H, Lymphocytes % 4.7 L, Monocytes % 2.8, Eosinophils % 1.0, Basophils % 0.1, Absolute Granulocytes 15.3 H, Absolute Lymphocytes 0.8 L , Absolute Monocytes 0.5, Absolute Eosinophils 0.2, Absolute Basophils 0, Platelet Estimate ADEQUATE, Hypochromic-Microcytic 1+, Poikilocytosis 2+, Anisocytosis 2+, PUBS MCHC 32.3 L Vital Signs Date Time Temp Pulse Resp B/P B/P Pulse O2 O2 Flow FiO2 Mean Ox Delivery Rate 08/16 0904 93 112/64 08/16 0904 93 112/64 08/16 0742 98.0 93 20 64 94 Room Air 08/16 0559 96 Room Air Intake & Output 08/16 1600 Intake Total 240 Output Total Balance 240 Intake, Oral 240
[2016-08-16 14:50] VITALS: BP 118/70
--- NOTE | 2016-08-16 18:24 | PN- Cardiology ---
Subjective Subjective: The patient is feeling better. However this morning he was wheezing but this improved after treatment. He remains in atrial fibrillation. His rate is slower now in the 90s on 360 mg of Cardizem. His chest x-ray did not show any vascular congestion. He is still having some diarrhea but it is improving. Objective Vital Signs and I&Os Vital Signs Date Time Temp Pulse Resp B/P B/P Pulse O2 O2 Flow FiO2 Mean Ox Delivery Rate 08/16 1600 Room Air 08/16 1450 98.3 98 20 118/70 94 Room Air 08/16 1135 96 Room Air Room Air 08/16 0904 93 112/64 08/16 0904 93 112/64 08/16 0742 98.0 93 20 112/64 94 Room Air 08/16 0559 96 Room Air 08/15 2142 97.5 99 20 120/70 93 08/15 1915 97 Room Air Intake & Output 08/16 1600 08/16 0800 08/16 0000 08/15 1600 08/15 0800 08/15 0000 Intake Total 403 912 0264 560 500 715 Output Total Balance 868 077 2815 560 500 715 Intake, IV 10 Intake, Oral 416 333 6642 560 500 715 Number 4 3 1 Bowel Movements Physical Exam: He is in no distress HEENT exam is normal Chest reveals decreased breath sounds and some mild inspiratory and expiratory wheezing Heart reveals soft heart sounds, irregular rhythm, no murmurs Current Medications: Current Medications Sig/Clare Start time Last Medication Dose Route Stop Time Status Admin Albuterol Sulfate 3 ML TID 08/07 1057 AC 08/16 INH 1121 Albuterol Sulfate 2 PUF Q6P PRN 08/06 2114 AC INH Alprazolam 0.25 MG ONCE ONE 08/16 2199 AC PO 08/16 220 Amiodarone HCl 200 MG DAILY 08/07 1000 AC 08/16 PO 0904 Budesonide/ 2 PUF BID 08/07 1000 AC 08/16 Formoterol Fumarate INH 0909 Diltiazem HCl 360 MG DAILY 08/16 1000 AC 08/16 PO 0904 Guaifenesin 600 MG Q12 08/13 2200 AC 08/16 PO 0904 Insulin Aspart 0 TIDAC 08/12 1200 AC 08/16 SC 1755 Lactobacillus 1 CAP BID 08/13 1000 AC 08/16 Acidophilus PO 0904 Melatonin 5 MG AT BEDTIME 08/15 2199 AC 08/15 PO 2158 Omeprazole 40 MG DAILY AC 08/13 0700 08/16 PO 0613 Patient Medication 1 ED .STK-MED ONE 08/16 1405 [facility] ED 08/16 1406 Pravastatin Sodium 80 MG 08/07 1700 08/16 PO 1752 Prednisone 10 MG ONCE ONE 08/17 1015 AC PO 08/17 1016 Prednisone 20 MG ONCE ONE 08/16 1015 MI 08/16 PO 08/16 1016 0905 Ramelteon 8 MG AT BEDTIME 08/15 220 MI 08/14 PO 2259 Rivaroxaban 15 MG 1700 08/13 1700 AC 08/16 PO 1752 Tamsulosin HCl 0.4 MG DAILY 08/06 2118 08/16 PO 0904 Vancomycin HCl 125 MG Q6 08/14 1301 08/16 PO 1753 Results Last 48 Hrs of Labs/Mics: Laboratory Tests 08/16/16 0632: Anion Gap 9, Estimated GFR 31 L, BUN/Creatinine Ratio 30.0 H, Magnesium 2.4 H , CBC w Diff MAN DIFF ORDERED, RBC 4.13 L, MCV 82.3, MCH 26.6 L, RDW 18.1 H, MPV 7.5, Gran % 91.4 H, Lymphocytes % 4.7 L, Monocytes % 2.8, Eosinophils % 1.0, Basophils % 0.1, Absolute Granulocytes 15.3 H, Absolute Lymphocytes 0.8 L , Absolute Monocytes 0.5, Absolute Eosinophils 0.2, Absolute Basophils 0, Platelet Estimate ADEQUATE, Hypochromic-Microcytic 1+, Poikilocytosis 2+, Anisocytosis 2+, PUBS MCHC 32.3 L 08/15/16 0630: Anion Gap 9, Estimated GFR 31 L, BUN/Creatinine Ratio 31.4 H, CBC w Diff MAN DIFF ORDERED, RBC 3.91 L, MCV 82.2, MCH 27.0, RDW 17.9 H, MPV 7.7, Gran % 96.2 H, Lymphocytes % 1.9 L, Monocytes % 1.9, Eosinophils % 0, Basophils % 0 L, Absolute Granulocytes 24.7 H, Segmented Neutrophils 89 H, Band Neutrophils 3, Absolute Lymphocytes 0.5 L, Lymphocytes 4 L, Monocytes 4, Absolute Monocytes 0.5, Absolute Eosinophils 0, Absolute Basophils 0, Platelet Estimate VERIFIED BY SMEAR, Normocytic RBCs VERIFIED, Normochromic RBCs VERIFIED, PUBS MCHC 32.8 L Recent Imaging Studies: PATIENT: SONDRA CANO PRESENT AGE: 76 PATIENT ACCOUNT NO: [id number] : 39 LOCATION: [facility] ORDERING PHYSICIAN: TANVIR DUKE MD SERVICE DATE: 08/16/16 EXAM TYPE: RAD - XRY-PORTABLE CHEST XRAY EXAMINATION: XR PORTABLE CHEST CLINICAL INFORMATION: Shortness of breath, cough and wheezing. COMPARISON: CXR from 08/11/2016 and 08/12/2016. TECHNIQUE: Portable frontal view of the chest was obtained. FINDINGS: Lungs are hyperexpanded from emphysematous disease. Progressive clearing of previously noted opacity (likely atelectasis) in the left lower lobe. No pulmonary edema, newly developing consolidation, pneumothorax or overt pleural effusion. Cardiac silhouette is normal in size. The right atrial and biventricular pacing leads are in their expected positions. Bones are unremarkable. IMPRESSION: 1. Pulmonary emphysema. 2. No evidence of recurrent pulmonary edema or of a developing pneumonia. DICTATED BY: TYREE ANDERSON MD DATE/TIME DICTATED:08/16/169[address] TECHNICIAN:SANTANA DATE/TIME TRANSCRIBED:08/16/16948 CONFIDENTIAL, DO NOT COPY WITHOUT APPROPRIATE AUTHORIZATION. <Electronically signed in Other Vendor System> SIGNED BY: TYREE ANDERSON MD 08/16/16 0956 Assessment/Plan Assessment/Plan The patient has improved with regards to his epistaxis. His respiratory status is good at this time. He is back on oral anticoagulants. The chest x-ray does not show any vascular congestion. His heart rate is improved on a larger dose of diltiazem. I recommend continuing Cardizem at 360 mg daily. I would not restart labetalol at this time because his blood pressure is not elevated. His heart rate is stable enough for discharge from a cardiac standpoint at this time. I will decide whether to consider cardioversion on him as an outpatient if he remains in atrial fibrillation. Continue telemetry? No
[2016-08-16 22:51] VITALS: BP 128/64
[2016-08-17 07:16] VITALS: BP 136/70
[2016-08-17 08:27] LABS: ABSOLUTE BASOPHIL COUNT 0 /CUMM (0.0-0.2); ABSOLUTE EOSINOPHIL COUNT 0.1 /CUMM (0.0-0.7); ABSOLUTE GRANULOCYTE CT 14.2 /CUMM (1.4-6.5); ABSOLUTE LYMPH COUNT 0.8 /CUMM (1.2-3.4); BASOPHIL % 0 % (0.0-2.0); EOSINOPHIL % 0.5 % (0-5); GRANULOCYTE % 88.2 % (42.2-75.2); HEMATOCRIT 34.6 % (42-52); MEAN CORPUSCULAR HGB 26.8 PG (27.0-31.0); MEAN CORPUSCULAR HGB CONC 32.4 G/DL (33.0-37.0); MEAN CORPUSCULAR VOLUME 82.6 FL (80.0-94.0); MEAN PLATELET VOLUME 7.9 FL (7.4-10.4); PLATELET COUNT 294 /CUMM (130-400); RBC DISTRIBUTION WIDTH 17.8 % (11.5-14.5); RED BLOOD CELL CT 4.19 /CUMM (4.70-6.10); WHITE BLOOD CELL COUNT 16.1 /CUMM (4.8-10.8)
--- NOTE | 2016-08-17 08:32 | PN- Pulmonary ---
Subjective HPI/Critical Care Issues: On and off dyspnea fatigue Diarrhea ongoing butless Objective Current Medications: Current Medications Sig/Clare Start time Last Medication Dose Route Stop Time Status Admin Albuterol Sulfate 3 ML TID 08/07 1057 AC 08/16 INH 2038 Albuterol Sulfate 2 PUF Q6P PRN 08/06 2115 AC INH Alprazolam 0.25 MG ONCE ONE 08/16 2200 DC 08/16 PO 08/16 2201 2100 Amiodarone HCl 200 MG DAILY 08/07 1000 AC 08/16 PO 0904 Budesonide/ 2 PUF BID 08/07 1000 AC 08/16 Formoterol Fumarate INH 2100 Diltiazem HCl 360 MG DAILY 08/16 1000 AC 08/16 PO 0904 Guaifenesin 600 MG Q12 08/13 2200 AC 08/16 PO 2100 Insulin Aspart 0 TIDAC 08/12 1200 AC 08/17 SC 0806 Lactobacillus 1 CAP BID 08/13 1000 AC 08/16 Acidophilus PO 2100 Melatonin 5 MG AT BEDTIME 08/15 2200 AC 08/16 PO 2100 Omeprazole 40 MG DAILY AC 08/13 0700 AC 08/17 PO 0642 Patient Medication 1 ED .STK-MED ONE 08/16 1405 DC Teaching ED 08/16 1406 Pravastatin Sodium 80 MG 1700 08/07 1700 AC 08/16 PO 1752 Prednisone 10 MG ONCE ONE 08/17 1015 AC PO 08/17 1016 Prednisone 20 MG ONCE ONE 08/16 1015 DC 08/16 PO 08/16 1016 0905 Rivaroxaban 15 MG 1700 08/13 1700 AC 08/16 PO 1752 Tamsulosin HCl 0.4 MG DAILY 08/06 2118 AC 08/16 PO 0904 Vancomycin HCl 125 MG Q6 08/14 1301 AC 08/17 PO 0642 Vital Signs & I&O Last 24 Hrs of Vitals and I&O: Vital Signs Date Time Temp Pulse Resp B/P B/P Pulse O2 O2 Flow FiO2 Mean Ox Delivery Rate 08/17 0716 98.4 94 18 136/70 97 Room Air 08/16 2251 98.4 81 16 128/64 95 Room Air 08/16 2113 Room Air 08/16 203 97 Room Air Room Air 08/16 1600 Room Air 08/16 1450 98.3 98 20 118/70 94 Room Air 08/16 1135 96 Room Air Room Air 08/16 0904 93 112/64 08/16 0904 93 112/64 Intake & Output 08/17 1600 08/17 0800 08/17 0000 Intake Total 200 227 Output Total Balance 200 227 Intake, Oral 200 227 Impression/Plan Impression/Plan Impression/Plan: General Appearance: Intubated mildly sedated patient is appropriately following all commands bilateral nasal packing noted Skin Temp/Moisture Exam: Skin appears clear Cardiovascular: tachycardia, mild systolic murmur Lungs: Bilateral crackles with mild wheezing Abdomen: Normal Bowel Sounds, Soft No significant edema noted Moves all extremities Medications reviewed IMPRESSION This is a gentleman with paroxysmal atrial fibrillation on xeralto, significant COPD, on chronic anticoagulation as well, biventricular pacer for a previous wide-complex rhythm, previous coronary artery disease, who came in with significant epistaxis with bilateral packing other, suddenly went into acute hypoxemic respiratory failure requiring mechanical ventilation as he was unable to be given noninvasive ventilation due to bilateral nasal packing. He does also have significant pulmonary hypertension, mitral regurgitation, diabetes, previous gout and osteoarthritis. He does have significant COPD who is not currently on 24-hour oxygen with 91-xfet-duph smoking history who has quit smoking few yrs ago now here in the ICU with the following issues. * REsolved Acute hypoxemic respiratory failure due to related to acute pulmonary edema in a gentleman with preserved ejection fraction with the no significant elevation in troponin with Pafib on amiodarone and was on anticoag (held tempororily for a short time for epistaxis) with biventricular pacer, consistent with acute diastolic heart failure with very significantly elevated proBNP. Prior to that pt had received multiple transfusions. S/p intubated and extubated now on room air * Cdiff colitis on abx * Significant bilateral epistaxis with nasal packing, was on abx for this * Sig COPD with a right middle lobe bronchiectasis from his previous pneumonia with MRSA colonization. He also has been wheezing consistent with cardiac asthma with COPD exacerbation related to fluid overload * Paroxysmal atrial fibrillation with anticoagulation before, on amiodarone with biventricular pacer. 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 * Hypertension, gout, previous high blood sugar, previous gout. * Mild aortic aneurysm * BPH on Flomax RECOMMENDATION COnt vanco po Nebs Agg wean off steroids prednisone 5 mg for two days and dc Will follow prn
--- NOTE | 2016-08-17 08:54 | PN- Housestaff ---
Subjective Follow-up For: epistaxis Decompensated heart failure Atrial fibrillation Acute kidney injury C. difficile Subjective: This morning patient is feeling improved. He had 4 bowel movements yesterday and one since morning. Bowel movements are getting little formed today. No fevers, nausea, abdominal pain and vomiting. Review of Systems Constitutional: Reports: see HPI. Objective Last 24 Hrs of Vital Signs/I&O Vital Signs Date Time Temp Pulse Resp B/P B/P Pulse O2 O2 Flow FiO2 Mean Ox Delivery Rate 08/17 0716 98.4 94 18 136/70 97 Room Air 08/16 2251 98.4 81 16 128/64 95 Room Air 08/16 2114 Room Air 08/16 2039 97 Room Air Room Air 08/16 1600 Room Air 08/16 1450 98.3 98 20 118/70 94 Room Air 08/16 1135 96 Room Air Room Air 08/16 0904 93 112/64 08/16 0904 93 112/64 Intake & Output 08/17 1600 08/17 0800 08/17 0000 Intake Total 200 227 Output Total Balance 200 227 Intake, Oral 200 227 Physical Exam General Appearance: Alert, Oriented X3, Cooperative, No Acute Distress Neck: Supple Cardiovascular: irregular Lungs: Clear to Auscultation Abdomen: Normal Bowel Sounds, Soft, No Tenderness Neurological: Normal Speech, Strength at 5/5 X4 Ext, Sensation Intact, Cranial Nerves 3-12 NL Extremities: No Edema Current Medications: Current Medications Sig/Clare Start time Last Medication Dose Route Stop Time Status Admin Albuterol Sulfate 3 ML TID 08/07 1057 AC 08/17 INH 0844 Albuterol Sulfate 2 PUF Q6P PRN 08/06 2114 AC INH Alprazolam 0.25 MG ONCE ONE 08/16 2199 DC 08/16 PO 08/16 220 2100 Amiodarone HCl 200 MG DAILY 08/07 1000 AC 08/16 PO 0904 Budesonide/ 2 PUF BID 08/07 1000 AC 08/16 Formoterol Fumarate INH 2100 Diltiazem HCl 360 MG DAILY 08/16 1000 AC 08/16 PO 0904 Guaifenesin 600 MG Q12 08/13 220 AC 08/16 PO 2100 Insulin Aspart 0 TIDAC 08/12 1200 AC 08/17 SC 0806 Lactobacillus 1 CAP BID 08/13 1000 AC 08/16 Acidophilus PO 2100 Melatonin 5 MG AT BEDTIME 08/15 2199 AC 08/16 PO 2100 Omeprazole 40 MG DAILY AC 08/13 0700 AC 08/17 PO 0642 Patient Medication 1 ED .STK-MED ONE 08/16 1405 DC Teaching ED 08/16 1406 Pravastatin Sodium 80 MG 1700 08/07 1700 AC 08/16 PO 1752 Prednisone 10 MG ONCE ONE 08/17 1015 AC PO 08/17 1016 Prednisone 20 MG ONCE ONE 08/16 1015 DC 08/16 PO 08/16 1016 0905 Rivaroxaban 15 MG 1700 08/13 1700 AC 08/16 PO 1752 Tamsulosin HCl 0.4 MG DAILY 08/06 2118 AC 08/16 PO 0904 Vancomycin HCl 125 MG Q6 08/14 1301 AC 08/17 PO 0642 Last 24 Hrs of Lab/[place] Results Last 24 Hrs of Labs/Mics: Laboratory Tests 08/17/16 0612: Anion Gap 9, Estimated GFR 33 L, BUN/Creatinine Ratio 27.5 H, CBC w Diff Pending, WBC Pending, RBC Pending, Hgb Pending, Hct Pending, MCV Pending, MCH Pending, RDW Pending, Plt Count Pending, MPV Pending, PUBS MCHC Pending Assessment/Plan Assessment: Mr Caldwell is a 76-year-old man who is known to be in his usual state of health until a week ago. He has a past medical history of recurrent nosebleeds/ epistaxis (one year ago), atrial fibrillation on Xarelto, coronary artery disease (history of multiple stents), implantation of pacemaker/defibrillator, COPD. He was transferred to ICU because of acute hypoxic respiratory failure secondary to acute decompensated heart failure and flash pulmonary edema. He was intubated and diuresed. After stabilization he was transferred back to telemetry floor. Problem list 1. Epistaxis 2. Acute hypoxic respiratory failure secondary to decompensated heart failure. ECHO 07/17 mild posterolateral hypokinesis with ejection fraction 55-60%. Mild- to-moderate concentric left ventricular hypertrophy. Moderate left atrial dilatation. Moderate pulmonary hypertension. resolved 3. H/O Atrial fibrillation on xarelto. No more epistaxis 4. Acute kidney injury. Baseline creatinine 1.7. Today 2 5. C. difficile on PO vanco PLAN * Monitor vitals closely * Plan for outpatient cardioversion if persistent A. fib * Continue Xarelto * Continue by mouth vancomycin for total of 14 days * Continue TRC nebs * Avoid nephrotoxins * DVT prophylaxis * Full code * Will ask Dr. Ramirez and Dr. Delatorre if patient can be discharged home today. Problem List: 1. C. difficile diarrhea 2. Acute respiratory failure with hypoxia Pain Ratin Pain Location: none Pain Goal: Remain pain free Pain Plan: tylenol Tomorrow's Labs & Rationales: bep DVT/Prophylaxis: pharmacological
[2016-08-17] MEDS ORDERED: CARDIZEM CD120 M2 PO ×2 (09:05→11:45)
[2016-08-17] MEDS ORDERED: PROBIOTIC & AC1 EACH PO ×2 (09:05→11:45)
[2016-08-17] MEDS ORDERED: VANCOMYCIN HCL5 G1 PO ×2 (09:07→11:45)
[2016-08-17] MEDS ORDERED: LASIX40 M1 PO ×2 (10:57→11:45)
--- NOTE | 2016-08-17 11:06 | PN- Cardiology ---
Subjective Subjective: The patient is feeling okay. He is eager to be discharged. He is still having some wheezing. He is off telemetry but on physical appears still to be in atrial fibrillation with relatively controlled rate. Objective Vital Signs and I&Os Vital Signs Date Time Temp Pulse Resp B/P B/P Pulse O2 O2 Flow FiO2 Mean Ox Delivery Rate 08/17 0916 94 136/70 08/17 0916 94 136/70 08/17 0853 96 Room Air Room Air 08/17 0716 98.4 94 18 136/70 97 Room Air 08/16 2251 98.4 81 16 128/64 95 Room Air 08/16 2114 Room Air 08/16 2039 97 Room Air Room Air 08/16 1600 Room Air 08/16 1450 98.3 98 20 118/70 94 Room Air 08/16 1135 96 Room Air Room Air Intake & Output 08/17 1600 08/17 0800 08/17 0000 08/16 1600 08/16 0800 08/16 0000 Intake Total 200 227 662 420 5788 Output Total Balance 200 227 767 507 0235 Intake, IV 10 Intake, Oral 200 227 338 044 1047 Number 4 Bowel Movements Physical Exam: He is in no distress. He is off oxygen. HEENT exam normal chest decreased breath sounds and mild wheezing Heart irregular rhythm no murmurs Extremities no edema Current Medications: Current Medications Sig/Clare Start time Last Medication Dose Route Stop Time Status Admin Albuterol Sulfate 3 ML TID 08/07 1057 AC 08/17 INH 0844 Albuterol Sulfate 2 PUF Q6P PRN 08/06 2115 AC INH Alprazolam 0.25 MG ONCE ONE 08/16 2199 DC 08/16 PO 08/16 2200 2100 Amiodarone HCl 200 MG DAILY 08/07 1000 AC 08/17 PO 0916 Budesonide/ 2 PUF BID 08/07 1000 AC 08/17 Formoterol Fumarate INH 0917 Diltiazem HCl 360 MG DAILY 08/16 1000 AC 08/17 PO 0916 Guaifenesin 600 MG Q12 08/13 2200 AC 08/17 PO 0916 Insulin Aspart 0 TIDAC 08/12 1200 AC 08/17 SC 0806 Lactobacillus 1 CAP BID 08/13 1000 AC 08/17 Acidophilus PO 0916 Melatonin 5 MG AT BEDTIME 08/150 AC 08/16 PO 2100 Omeprazole 40 MG DAILY AC 08/13 0700 AC 08/17 PO 0642 Patient Medication 1 ED .STK-MED ONE 08/16 1405 DC Teaching ED 08/16 1406 Pravastatin Sodium 80 MG 08/07 1700 AC 08/16 PO 1752 Prednisone 10 MG ONCE ONE 08/17 1015 DC 08/17 PO 08/17 1016 0916 Rivaroxaban 15 MG 1700 08/13 1700 AC 08/16 PO 1752 Tamsulosin HCl 0.4 MG DAILY 08/06 211 AC 08/17 PO 0916 Vancomycin HCl 125 MG Q6 08/14 1301 AC 08/17 PO 0642 Results Last 48 Hrs of Labs/Mics: Laboratory Tests 08/17/16 0612: Anion Gap 9, Estimated GFR 33 L, BUN/Creatinine Ratio 27.5 H, CBC w Diff MAN DIFF ORDERED, RBC 4.19 L, MCV 82.6, MCH 26.8 L, RDW 17.8 H, MPV 7.9, Gran % 88.2 H, Lymphocytes % 5.1 L, Monocytes % 6.2, Eosinophils % 0.5, Basophils % 0 L, Absolute Granulocytes 14.2 H, Segmented Neutrophils 75, Band Neutrophils 4, Absolute Lymphocytes 0.8 L, Lymphocytes 14 L, Monocytes 7, Absolute Monocytes 1.0 H, Absolute Eosinophils 0.1, Absolute Basophils 0, Platelet Estimate ADEQUATE, Normocytic RBCs VERIFIED, Normochromic RBCs VERIFIED, PUBS MCHC 32.4 L, Fld Total RBCs Counted 100 08/16/16 0632: Anion Gap 9, Estimated GFR 31 L, BUN/Creatinine Ratio 30.0 H, Magnesium 2.4 H , CBC w Diff MAN DIFF ORDERED, RBC 4.13 L, MCV 82.3, MCH 26.6 L, RDW 18.1 H, MPV 7.5, Gran % 91.4 H, Lymphocytes % 4.7 L, Monocytes % 2.8, Eosinophils % 1.0, Basophils % 0.1, Absolute Granulocytes 15.3 H, Absolute Lymphocytes 0.8 L , Absolute Monocytes 0.5, Absolute Eosinophils 0.2, Absolute Basophils 0, Platelet Estimate ADEQUATE, Hypochromic-Microcytic 1+, Poikilocytosis 2+, Anisocytosis 2+, PUBS MCHC 32.3 L Assessment/Plan Assessment/Plan The patient has improved with regards to his epistaxis. His respiratory status is good at this time. He is back on oral anticoagulants. The chest x-ray does not show any vascular congestion. His heart rate is improved on a larger dose of diltiazem. The patient appears ready for discharge from a cardiac standpoint. I would continue him on Cardizem 360 mg daily. I would restart Lasix on him as he has a tendency to develop pulmonary congestion. We will hold off on labetalol and losartan for now. I will see him fairly soon in the office and restart his medications as necessary at that time. Continue telemetry? No
[2016-08-17] MEDS ORDERED: NOVOLOG FL100 UNIT/1 SC (11:41)
[2016-08-17] MEDS ORDERED: XARELTO15 M1 PO (13:34)
[2016-08-17 14:30] VITALS: BP 128/62
--- NOTE | 2016-08-17 18:38 | PN- Att Addend ---
Attending Addendum Attending Brief Note Patient looking and feeling better today, at the bedside Dr. Ramirez in to evaluate the patient decided to hold some of the blood pressure medications also was decided to hold metformin for now monitor his blood pressure and blood sugars as an outpatient, will have visiting nurses will use insulin for now would be going home later on today, follow-up labs as an outpatient follow-up with cardiology and myself. See the CMR Intake & Output 08/17 1600 08/17 0800 08/17 0000 08/16 1600 08/16 0800 08/16 0000 Intake Total 480 200 227 208 354 7689 Output Total Balance 480 200 227 544 140 2475 Intake, IV 10 Intake, Oral 480 200 227 968 593 0292 Number 3 4 Bowel Movements 24 TOTALS 08/17 0000 08/16 0000 Intake Total 1167 2070 Output Total Balance 1167 2070 Intake, IV 10 Intake, Oral 1167 2060 Number 4 4 Bowel Movements Current Medications Sig/Clare Start time Last Medication Dose Route Stop Time Status Admin Albuterol Sulfate 3 ML TID 08/07 1057 DCD 08/17 INH 1310 Albuterol Sulfate 2 PUF Q6P PRN 08/06 211 DCD INH Alprazolam 0.25 MG ONCE ONE 08/16 220 DC 08/16 PO 08/16 2201 2100 Amiodarone HCl 200 MG DAILY 08/07 1000 DCD 08/17 PO 0916 Budesonide/ 2 PUF BID 08/07 1000 DCD 08/17 Formoterol Fumarate INH 0917 Diltiazem HCl 360 MG DAILY 08/16 1000 DCD 08/17 PO 0916 Guaifenesin 600 MG Q12 08/13 2200 DCD 08/17 PO 0916 Insulin Aspart 0 TIDAC 08/12 1200 DCD 08/17 SC 1217 Lactobacillus 1 CAP BID 08/13 1000 DCD 08/17 Acidophilus PO 0916 Melatonin 5 MG AT BEDTIME 08/15 220 DCD 08/16 PO 2100 Omeprazole 40 MG DAILY AC 08/13 0700 DCD 08/17 PO 0642 Pravastatin Sodium 80 MG 1700 08/07 1700 DCD 08/17 PO 1623 Prednisone 10 MG ONCE ONE 08/17 1015 DC 08/17 PO 08/17 1016 0916 Rivaroxaban 15 MG 1700 08/13 1700 DCD 08/17 PO 1623 Tamsulosin HCl 0.4 MG DAILY 08/06 2117 DCD 08/17 PO 0916 Vancomycin HCl 125 MG Q6 08/14 1301 DCD 08/17 PO 1216
== END 2016-08-17 16:48 | disposition home health service (06) | DRG 208 ==
LOC: ERH 15:24 → ERHI 18:40 → 1NO 18:40 → ENRESERV 20:13 → ENTRNSPT 21:11 → 1NO 21:48 → CMPTRNSPT 21:53 → 1NO 08-07 11:11 → CRI 08-09 14:22 → 1NO 08-09 14:22 → CRI 08-09 21:13 → 1NO 08-14 16:22 → ENPENDDIS 08-17 12:01 → 1NO 08-17 16:48
PROVIDERS: Internal Medicine; Internal Medicine Pulmonary Disease; Physician Assistant; Student in an Organized Health Care Education/Training Program; ADMIT Internal Medicine
PROC: 30233N1 Transfusion of Nonautologous Red Blood Cells into Peripheral Vein, Percutaneous Approach (ICD-10-PCS; 2016-08-07)
PROC: 0BH17EZ Insertion of Endotracheal Airway into Trachea, Via Natural or Artificial Opening (ICD-10-PCS; principal; 2016-08-09)
PROC: 5A1945Z Respiratory Ventilation, 24-96 Consecutive Hours (ICD-10-PCS; principal; 2016-08-09)
DX: J96.01 Acute respiratory failure with hypoxia (principal); I50.33 Acute on chronic diastolic (congestive) heart failure; I47.2 Ventricular tachycardia; N17.9 Acute kidney failure, unspecified; A04.7 Enterocolitis due to Clostridium difficile; J44.1 Chronic obstructive pulmonary disease with (acute) exacerbation; I13.0 Hypertensive heart and chronic kidney disease with heart failure and stage 1 through stage 4 chronic kidney disease, or unspecified chronic kidney disease; I48.0 Paroxysmal atrial fibrillation; E11.22 Type 2 diabetes mellitus with diabetic chronic kidney disease; I27.2 Other secondary pulmonary hypertension; E11.65 Type 2 diabetes mellitus with hyperglycemia; E87.1 Hypo-osmolality and hyponatremia; D62 Acute posthemorrhagic anemia; I34.0 Nonrheumatic mitral (valve) insufficiency; I25.10 Atherosclerotic heart disease of native coronary artery without angina pectoris; E78.5 Hyperlipidemia, unspecified; M10.9 Gout, unspecified; Z79.01 Long term (current) use of anticoagulants; I95.1 Orthostatic hypotension; R04.0 Epistaxis; N18.9 Chronic kidney disease, unspecified; N40.0 Benign prostatic hyperplasia without lower urinary tract symptoms; Z79.84 Long term (current) use of oral hypoglycemic drugs; Z87.891 Personal history of nicotine dependence; Z95.0 Presence of cardiac pacemaker
CPT/HCPCS: 1NP; 84133; 84300; CCU; 36415; 81001; 82436; 82570; 86920; 87040; 87070; 87086; 87147; 93005; 93010; 94799; 97116-GO; 97161-GP; 97530-GO; 99291; J0610; J0713; J1644; J1815; J1940; J2920; J2930; J3010; J3370; J3490; J7040; J7512; P9016

== ENCOUNTER 2016-08-29 07:08 | Inpatient (IN) | payer OTHER ==
[~2016-08-29] VITALS: Ht 175.3 cm; Wt 83.9 kg
[~2016-08-29 07:08] MED LIST changes: -ALLOPURINOL100 M1 PO; +CARDIZEM CD120 M2 PO; +PROBIOTIC & AC1 EACH PO; +VANCOMYCIN HCL5 G1 PO
[2016-08-29 07:34] LABS: ABSOLUTE BASOPHIL COUNT 0 /CUMM (0.0-0.2); ABSOLUTE EOSINOPHIL COUNT 0 /CUMM (0.0-0.7); ABSOLUTE GRANULOCYTE CT 12.4 /CUMM (1.4-6.5); ABSOLUTE LYMPH COUNT 0.6 /CUMM (1.2-3.4); ABSOLUTE MONOCYTE COUNT 0.6 /CUMM (0.10-0.60); BASOPHIL % 0.4 % (0.0-2.0); EOSINOPHIL % 0.1 % (0-5); HEMATOCRIT 28.1 % (42-52); MEAN CORPUSCULAR HGB 26.6 PG (27.0-31.0); MEAN CORPUSCULAR HGB CONC 32.8 G/DL (33.0-37.0); MEAN PLATELET VOLUME 6.9 FL (7.4-10.4); PLATELET COUNT 226 /CUMM (130-400); RBC DISTRIBUTION WIDTH 18.4 % (11.5-14.5); RED BLOOD CELL CT 3.47 /CUMM (4.70-6.10); WHITE BLOOD CELL COUNT 13.6 /CUMM (4.8-10.8)
--- NOTE | 2016-08-29 07:34 | ED DYSPNEA/ASTHMA COMPLAINT ---
History of Present Illness General Chief Complaint: General Adult Stated Complaint: BIBA ?RAPID AFIB Source: patient, old records, EMS Exam Limitations: no limitations Vital Signs & Intake/Output Vital Signs & Intake/Output Vital Signs Date Time Temp Pulse Resp B/P B/P Pulse O2 O2 Flow FiO2 Mean Ox Delivery Rate 08/30 0734 97.9 102 20 135/56 95 Nasal 2.0L Cannula 08/29 0813 Nasal 2.0L Cannula 08/29 0807 96 129/62 08/29 0806 99 140/63 08/29 0759 92 Room Air 08/29 0745 112 145/63 08/29 0727 98.1 76 24 131/68 95 Nasal 2.0L Cannula Allergies Coded Allergies: NO KNOWN ALLERGIES (UNKNOWN 08/10/16) Reconcile Medications Albuterol Sulfate 2.5 MG/3 ML (0.083 %) VIAL.NEB 1 Vial INH/ASHLEY TID PRN wheezing Albuterol Sulfate (Ventolin Hfa) 18 GM HFA.AER.AD 2 PUF INH Q6P PRN SHORTNESS OF BREATH Allopurinol 300 MG TABLET 1 TAB PO DAILY GOUT (Reported) Amiodarone HCl 200 MG TABLET 1 TAB PO DAILY AFIB (Reported) Diltiazem HCl (Cardizem Cd) 120 MG CAP.ER.24H 360 MG PO DAILY Afib Fluticasone/Vilanterol (Breo Ellipta 100-25 Mcg INH) 100 MCG-25 MCG/DOSE BLST.W.DEV 1 PUFF INH DAILY BREATHING PROBLEMS (Reported) Furosemide (Lasix) 40 MG TABLET 1 TAB PO DAILY fluid overload Insulin Aspart, Recombinant (Novolog Flexpen) 100 UNIT/ML INSULN.PEN 1 UNITS SC AD DM DIRECTED Lactobac Cmb #3/Fos/Pantethine (Probiotic & Acidophilus Cap) 300MM-250 CAPSULE 1 CAP PO BID DIARRHEA Magnesium Oxide 400 MG TABLET 1 TAB PO DAILY SUPPLEMENT (Reported) Multivit-Min/FA/Lycopen/Lutein (Centrum Silver Tablet) 0.4 MG-300 MCG-250 MCG TABLET 1 TAB PO DAILY VITAMIN SUPPORT (Reported) Pravastatin Sodium 80 MG TABLET 1 TAB PO DAILY HLD (Reported) Prednisone 5 MG TABLET 1 TAB PO DAILY GOUT (Reported) Rivaroxaban (Xarelto) 15 MG TABLET 1 TAB PO DAILY Afib (Reported) Tamsulosin HCl (Flomax) 0.4 MG CAP.ER.24H 1 CAP PO DAILY PROSTATE (Reported) Tiotropium [place] (Spiriva) 18 MCG CAP.W.DEV 1 CAP INH DAILY COPD (Reported) Tramadol HCl 50 MG TABLET 1 TAB PO Q12P PRN headcahe and nasal congestion Vitamin B Complex (B Complex) 1 EACH TABLET 1 TAB PO DAILY VITAMIN SUPPORT ( Reported) Core Measure Meds Pre-Hospital xarelto Triage Nurses Notes Reviewed? yes Onset: 3 days Duration: day(s):, continues in ED, getting worse Timing: recent history Severity: severe Activities at Onset: activity Prior Episodes/Possible Cause: frequent episodes Modifying Factors: Improves With: rest, other. Worsens With: movement. Associated Symptoms: anxiety, cough, wheezing, weakness HPI: 3 days prior to admission patient complains of cough shortness of breath wheezing increasing weakness palpitations worse with exertion relieved with rest. 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 He denies fever chills nausea vomiting diarrhea abdominal pain chest pain headache dysuria rash bleeding Past History Travel History Traveled to [place] past 21 day No Medical History Any Pertinent Medical History? 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 Relation not specified for: Fam hx-ischem heart disease Fam hx-ischem heart disease Hx Contributory? No Review of Systems Review of Systems Constitutional: Reports: see HPI, weakness. EENTM: Reports: no symptoms. Respiratory: Reports: see HPI, cough, short of breath, wheezing. Cardiovascular: Reports: see HPI, palpitations. GI: Reports: no symptoms. Genitourinary: Reports: no symptoms. Musculoskeletal: Reports: no symptoms. Skin: Reports: no symptoms. Neurological/Psychological: Reports: no symptoms. Hematologic/Endocrine: Reports: no symptoms. Immunologic/Allergic: Reports: no symptoms. All Other Systems: Reviewed and Negative Physical Exam Physical Exam General Appearance: well developed/nourished, alert, awake, anxious, mild distress Head: atraumatic, normal appearance Eyes: Bilateral: normal appearance, PERRL, EOMI. Ears, Nose, Throat: normal pharynx, normal ENT inspection, moist mucus membranes Neck: normal inspection, supple, full range of motion, no midline tenderness Respiratory: chest non-tender, decreased breath sounds, wheezing, rales Cardiovascular: normal peripheral pulses, tachycardia, irregularly irregular Peripheral Pulses: 4+ carotid (R), 4+ carotid (L) Gastrointestinal: normal bowel sounds, soft, non-tender, no organomegaly Extremities: normal inspection, normal capillary refill, normal range of motion, no edema Neurologic/Psych: no motor/sensory deficits, awake, alert, oriented x 3, normal mood/affect, clinical application specialist II-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 No Severe Sepsis Present: No Septic Shock Present: No Progress Differential Diagnosis: asthma, CHF, COPD, pneumonia Plan of Care: Orders Procedure Date/time Status CBC WITHOUT DIFFERENTIAL 08/30 0600 Active BASIC ELECTROLYTES PLUS BUN&CR 08/30 0600 Active Consistent Carbohydrate 2 08/29 L Active Heart Healthy Diet 08/29 B Complete Pathway - chart 08/29 0925 Active House Staff 08/29 0925 Active Patient Data 08/29 0925 Active LOWER RESPIRATORY CULTURE 08/29 0925 Active Patient Data 08/29 0919 Active OXYGEN SETUP (GEN) 08/29 0834 Active Saline Lock 08/29 0834 Active Admit to inpatient 08/29 0834 Active Vital Signs 08/29 0834 Active Activity/Ambulation 08/29 0834 Active Code Status 08/29 0834 Active BLOOD CULTURE 08/29 0824 Active FingerStick- Glucose 08/29 0803 Active Add-on Test (ER Only) 08/29 0726 Active Intake & Output 08/29 0725 Active MAGNESIUM 08/29 0717 Complete B-TYPE NATRIURETIC PEP (BNP) 08/29 0717 Complete TROPONIN LEVEL 07/12 0716 Complete PARTIAL THROMBOPLASTIN TIME 08/30 715 Complete PROTHROMBIN TIME 08/30 715 Complete COMPREHENSIVE METABOLIC PANEL 08/30 715 Complete CBC WITHOUT DIFFERENTIAL 08/30 715 Complete EKG 08/29 709 Active VTE Mechanical Prophylaxis 08/29 UNK Active Telemetry/Hearth Feeder 08/29 UNK Active Current Medications Sig/Clare Start time Last Medication Dose Stop Time Status Admin Acetaminophen 650 MG Q6P PRN 08/29 929 AC (Tylenol) Oxycodone HCl 5 MG Q6PRN PRN 08/29 929 AC (Roxicodone) Tramadol HCl 50 MG Q6P PRN 08/29 929 AC (Ultram) Laboratory Tests 08/29/16 07: Anion Gap 12, Estimated GFR 39 L, BUN/Creatinine Ratio 17.6, Glucose 151 H, Calcium 8.2 L, Magnesium 1.7, Total Bilirubin 0.6, AST 24, ALT 45, Alkaline Phosphatase 93, Troponin I 0.05, Vod-K-Mpeyeugupeg Pept 7900 H, Total Protein 5.5 L, Albumin 3.0 L, Globulin 2.5, Albumin/Globulin Ratio 1.2, PT 22.5 H, INR 2.16 H, APTT 42 H, CBC w Diff NO MAN DIFF REQ, RBC 3.47 L, MCV 81.0, MCH 26.6 L, RDW 18.4 H, MPV 6.9 L, Gran % 91.3 H, Lymphocytes % 4.1 L, Monocytes % 4.1, Eosinophils % 0.1, Basophils % 0.4, Absolute Granulocytes 12.4 H, Absolute Lymphocytes 0.6 L, Absolute Monocytes 0.6, Absolute Eosinophils 0, Absolute Basophils 0, PUBS MCHC 32.8 L Microbiology 08/29 924 LOWER RESP: Respiratory Culture - COLB 08/29 924 LOWER RESP: Gram Stain - COLB 08/29 844 BLOOD: Blood Culture - RECD 08/29 829 BLOOD: Blood Culture - RECD Diagnostic Imaging: Viewed by Me: Radiology Read. Discussed w/RAD: Radiology Read. CXR Impression: Findings suspicious for mild\E\early congestive heart failure. Small right pleural effusion with possible concomitant opacity could reflect atelectasis or evolving infiltrate. Initial ED EKG: AFIB, LBBB, nonspecific ST T wave chg Prior EKG: unchanged Rhythm Strip: atrial fibrillation Departure Departure Disposition: STILL A PATIENT Condition: Stable Clinical Impression Primary Impression: Pneumonia Qualifiers: Pneumonia type: due to unspecified organism Laterality: right Lung location: lower lobe of lung Qualified Code: J18.1 - Lobar pneumonia, unspecified organism Secondary Impressions: Atrial fibrillation with rapid ventricular response Chronic renal insufficiency Qualifiers: Chronic kidney disease stage: unspecified stage Qualified Code: N18.9 - Chronic kidney disease, unspecified COPD exacerbation Pleural effusion Referrals: SCARLETT WATT MD (PCP/Family) Departure Forms: Customer Survey General Discharge Information Admission Note Spoke With: SCARLETT WATT MD Documentation of Exam: Documentation of any treatments & extenuating circumstances including Concerns Regarding Discharge (functional status, medication knowledge or non-compliance, living conditions, etc.) that warrant an admission rather than observation: Supplemental oxygen beta agonist nebs IV antibiotics cardiology evaluation pulmonary evaluation medication adjustment continuing care discharge planning Critical Care Note Critical Care Note Critical Care Time: non-applicable
[2016-08-29 07:49] LABS: GRANULOCYTE % 91.3 % (42.2-75.2)
--- NOTE | 2016-08-29 07:55 | NUR ---
76 YEAR OLD MALE WITH HISTORY OF AFIB THAT HE TAKES XARELTO FOR,AFIB ON MONITOR HR 112-142 , PT MEDICATED WITH CARDIZEM 10 MG IV PER ORDER AND HR 96-102 AT THIS TIME. DENIES CP. PT HAS HISTORY OF COPD, CHF , TAKES DAILY LASIX DAILY FOR. DID NOT TAKE AM MEDS. PT NOTED WITH +2 PITTING EDEMA TO RLE AND TRACE EDEMA LLE, BROUGHT TO ER DUE TO INCREASED SOB THIS AM,AND FELT LIKE HIS HEART WAS RACING. COMPLAINS OF COUGH PRODUCTIVE OF SMALL AMOUNT OF WHITE SPUTUM, DENIES FEVERS AND PT AFEBRILE AT THIS TIME, O2 SAT 92 % ON RA, PLACED ON 2L VIA NC AND SATURATION INCREASED TO 95 % , PT CONCERNED ABOUT NC DUE TO IT DRIES HIS NARES AND THAT HE HAS A HISTORY OF EPISTAXIS AND THEY RECENTLY HAD TO CORTIRIZE IT. PT NOTED WITH QUESTION PACE /DEFIBRILATOR TO L SIDE CHEST, PT STATES THAT IT IS ONLY DEFIB NOT PACER, PACER SPIKES NOTED ON MONITOR.MEDICATED WITH SOLUMEDROL IV PER ORDER AND RESP AT BEDSIDE TO ADMINISTER NEB TREATMENT.
--- NOTE | 2016-08-29 07:59 | NUR ---
PT IS IDDM AND FS 168 AT THIS TIME
--- NOTE | 2016-08-29 08:14 | RADIOLOGY REPORT ---
EXAMINATION: XR PORTABLE CHEST CLINICAL INFORMATION: Wheezing cough shortness of breath COMPARISON: Prior chest 08/16/2016 TECHNIQUE: Portable frontal view of the chest was obtained. FINDINGS: There is a new right pleural effusion. There may be some concomitant opacity. There is mild increased interstitial markings. A dual-lead pacer again noted with leads intact. Calcification of the dorsal aorta. Slight prominence of central pulmonary vasculature. IMPRESSION: Findings suspicious for mild\E\early congestive heart failure. Small right pleural effusion with possible concomitant opacity could reflect atelectasis or evolving infiltrate.
--- NOTE | 2016-08-29 08:38 | NUR ---
PT STATES THAT HE FEELS BETTER AFTER TREATMENT , O2 SAT 95 % ON 2L VIA NC, PACED ON MONITOR HR 98-104, BP 135/[address] CARRANZA AT BEDSIDE TO DISCUSS PLAN OF CARE AND TO LET PT KNOW THAT HE HAS PNA.
[2016-08-29 08:42] LABS: PT 22.5 SEC (9.4-12.5); PTT 42 SEC (25-37)
--- NOTE | 2016-08-29 08:50 | NUR ---
SECOND BLOOD CULTURE SET DRAWN AND SENT TO LAB.
--- NOTE | 2016-08-29 08:54 | NUR ---
PT MEDICATED WITH IV FORTAZ PER ORDER AND IV DOXYCYCLINE INFUSING RF # 20 AT 110 ML/HR AT THIS TIME . PT OFFERS NO COMPLAINTS AT THIS TIME AND FOOD TRAY ORDERED
[2016-08-29] MEDS ORDERED: LASIX40 M1 PO (10:03)
[2016-08-29] MEDS ORDERED: CARDIZEM CD120 M2 PO (10:04)
--- NOTE | 2016-08-29 10:04 | NUR ---
PHARMACY CALLED ABOUT 10 AM MEDS, MADE AWARE THAT DOXY IS INFUSING AT THIS TIME SO THAT DATE AND TIME NEEDS TO BE CHANGED. PER PHARMACY MD IS STILL IN COMPUTER PUTTING MEDS SO HE WILL VERIFY THEM WHEN THEY ARE DONE AND GET THEM READY
--- NOTE | 2016-08-29 10:10 | History & Physical ---
General Information and HPI MD Statement: I have seen and personally examined SONDRA CANO and documented this H&P. The patient is a 76 year old M who presented with a patient stated chief complaint of worsening shortness of breath with cough Source of Information: patient, EMS Exam Limitations: no limitations History of Present Illness: Patient is a 76-year-old gentleman with a past mental history significant for recurrent nosebleeds/epistaxis status post cauterization, atrial fibrillation on Xarelto, coronary artery disease (history of multiple stents), cardiomyopathy status post pacemaker/defibrillator, COPD(on 1 L of oxygen at bedtime), history of MRSA pneumonia June 2016, recently admitted to [facility] due to epistaxis and C. difficile colitis presented to the ED for further evaluation of worsening shortness of breath and cough. Patient mentioned that he has been having shortness of breath mostly exertional for a couple of weeks now, getting worse. Also he reports productive cough for the last 2-3 days without any fever or chills. Patient denies any chest discomfort. Denies any recent travels/ sick contacts . His appetite has been good. Denies any nausea vomiting abdominal discomfort no urinary bowel habit complaints Today in the morning his symptoms gotten worse could not able to catch his breath, also he checked his heart rate with a monitor and found that his heart rate was running between 130s to 140s, EMS was called and he was brought to the ED for further evaluation. In the ED patient heart rate was running between 110 to 140s he was given IV Cardizem push 1 time. Patient was also found to be in acute respiratory distress ( wheezing), he was given IV Solu-Medrol 125 once and will put on 2 L of oxygen through nasal cannula. As mentioned above patient recently completed a course of vancomycin for C. difficile colitis(finished on 08/28/16). Patient was seen by Dr. Ramirez the slip cover maker last week and his Lasix dose was increased to 80 mg daily due to worsening lower extremity edema. He was supposed to see Dr. Delatorre today but couldn't able to make the appointment because of his current condition. Allergies/Medications Allergies: Coded Allergies: NO KNOWN ALLERGIES (UNKNOWN 08/10/16) Home Med list Albuterol Sulfate 2.5 MG/3 ML (0.083 %) VIAL.NEB 1 Vial INH/ASHLEY TID PRN wheezing Albuterol Sulfate (Ventolin Hfa) 18 GM HFA.AER.AD 2 PUF INH Q6P PRN SHORTNESS OF BREATH Allopurinol 300 MG TABLET 1 TAB PO DAILY GOUT (Reported) Amiodarone HCl 200 MG TABLET 1 TAB PO DAILY AFIB (Reported) Diltiazem HCl (Cardizem Cd) 120 MG CAP.ER.24H 120 MG PO DAILY Afib Fluticasone/Vilanterol (Breo Ellipta 100-25 Mcg INH) 100 MCG-25 MCG/DOSE BLST.W.DEV 1 PUFF INH DAILY BREATHING PROBLEMS (Reported) Furosemide (Lasix) 40 MG TABLET 2 TAB PO DAILY fluid overload Insulin Aspart, Recombinant (Novolog Flexpen) 100 UNIT/ML INSULN.PEN 1 UNITS SC AD DM DIRECTED Lactobac Cmb #3/Fos/Pantethine (Probiotic & Acidophilus Cap) 300MM-250 CAPSULE 1 CAP PO BID DIARRHEA Magnesium Oxide 400 MG TABLET 1 TAB PO DAILY SUPPLEMENT (Reported) Multivit-Min/FA/Lycopen/Lutein (Centrum Silver Tablet) 0.4 MG-300 MCG-250 MCG TABLET 1 TAB PO DAILY VITAMIN SUPPORT (Reported) Pravastatin Sodium 80 MG TABLET 1 TAB PO DAILY HLD (Reported) Prednisone 5 MG TABLET 1 TAB PO DAILY GOUT (Reported) Rivaroxaban (Xarelto) 15 MG TABLET 1 TAB PO DAILY Afib (Reported) Tamsulosin HCl (Flomax) 0.4 MG CAP.ER.24H 1 CAP PO DAILY PROSTATE (Reported) Tiotropium [place] (Spiriva) 18 MCG CAP.W.DEV 1 CAP INH DAILY COPD (Reported) Tramadol HCl 50 MG TABLET 1 TAB PO Q12P PRN headcahe and nasal congestion Vitamin B Complex (B Complex) 1 EACH TABLET 1 TAB PO DAILY VITAMIN SUPPORT ( Reported) Past History Travel History Traveled to [place] past 21 day No Medical History Neurological: NONE EENT: epistaxis, HEARING LOSS Cardiovascular: AFIB, CHF, hypertension, hyperlipidemia, STENTS x 5 LCW PACER/ DEBRILLATOR Respiratory: COPD, pneumonia Gastrointestinal: NONE Hepatic: NONE Renal: NONE Musculoskeletal: gout, osteoarthritis Psychiatric: NONE Endocrine: diabetes Blood Disorders: NONE Cancer(s): NONE 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 Relation not specified for: Fam hx-ischem heart disease Fam hx-ischem heart disease Psychosocial History Who Do You Live With? spouse Services at Home: None Primary Language: Hebrew ETOH Use: denies use Illicit Drug Use: denies illicit drug use Functional Ability ADLs Independent: dressing, eating, toileting, bathing. Ambulation: independent IADLs Independent: shopping, housework, finances, food prep, telephone, transportation , medication admin. Review of Systems Review of Systems Constitutional: Denies: diaphoresis, fever, malaise. EENTM: Denies: blurred vision, double vision, visual changes, eye pain. Cardiovascular: Reports: edema. Denies: chest pain, orthopena, palpitations. Respiratory: Reports: cough, short of breath. GI: Denies: abdominal pain, bloating, constipation, diarrhea. Genitourinary: Denies: dysuria, frequency, hematuria. Musculoskeletal: Denies: back pain, gout, joint pain. Skin: Denies: change in skin color, change in hair/nails, dryness. Neurological/Psychological: Denies: anxiety, ataxia, cognitive dysfunction. Hematologic/Endocrine: Denies: bruising, bleeding. Exam & Diagnostic Data Last 24 Hrs of Vital Signs/I&O Vital Signs Date Time Temp Pulse Resp B/P B/P Pulse O2 O2 Flow FiO2 Mean Ox Delivery Rate 08/29 1025 98.4 105 20 138/62 92 Nasal 2.0L Cannula 08/29 0834 97.9 102 20 135/56 95 Nasal 2.0L Cannula 08/29 0813 Nasal 2.0L Cannula 08/29 0807 96 129/62 08/29 0806 99 140/63 08/29 0759 92 Room Air 08/29 0745 112 145/63 08/29 0727 98.1 76 24 131/68 95 Nasal 2.0L Cannula Intake & Output 08/29 1600 08/29 0800 08/29 0000 Intake Total 0 Output Total Balance 0 Intake, Oral 0 Patient 183 lb Weight Physical Exam General Appearance Alert, Oriented X3 Skin No Rashes, No Breakdown Neck Supple, No JVD Cardiovascular irregularly irregular rate and rhythm Lungs bilateral inspiratory wheeze on exam Abdomen Normal Bowel Sounds, Soft Neurological Normal Gait, Normal Speech Extremities 2 + pitting edema in lower extremities Last 24 Hrs of Labs/[place]: Laboratory Tests 08/29/16 0717: Anion Gap 12, Estimated GFR 39 L, BUN/Creatinine Ratio 17.6, Glucose 151 H, Calcium 8.2 L, Magnesium 1.7, Total Bilirubin 0.6, AST 24, ALT 45, Alkaline Phosphatase 93, Troponin I 0.05, Zmb-L-Lyqsllilkay Pept 7900 H, Total Protein 5.5 L, Albumin 3.0 L, Globulin 2.5, Albumin/Globulin Ratio 1.2, PT 22.5 H, INR 2.16 H, APTT 42 H, CBC w Diff NO MAN DIFF REQ, RBC 3.47 L, MCV 81.0, MCH 26.6 L, RDW 18.4 H, MPV 6.9 L, Gran % 91.3 H, Lymphocytes % 4.1 L, Monocytes % 4.1, Eosinophils % 0.1, Basophils % 0.4, Absolute Granulocytes 12.4 H, Absolute Lymphocytes 0.6 L, Absolute Monocytes 0.6, Absolute Eosinophils 0, Absolute Basophils 0, PUBS MCHC 32.8 L Microbiology 08/29 924 LOWER RESP: Respiratory Culture - COLB 08/29 924 LOWER RESP: Gram Stain - COLB 08/29 0845 BLOOD: Blood Culture - RECD 08/29 829 BLOOD: Blood Culture - RECD Assessment/Plan Assessment: Patient is a 76-year-old gentleman with a past mental history significant for recurrent nosebleeds/epistaxis status post cauterization, atrial fibrillation on Xarelto, coronary artery disease (history of multiple stents), cardiomyopathy status post pacemaker/defibrillator, COPD(on 4 L of oxygen at bedtime), history of MRSA pneumonia June 2016, recently admitted to [facility] due to epistaxis and C. difficile colitis presented to the ED for further evaluation of worsening shortness of breath and cough. In the ED patient heart rate was running between 110 to 140s he was given IV Cardizem push 1 time. Patient was also found to be in acute respiratory distress ( wheezing), he was given IV Solu-Medrol 125 once and will put on 2 L of oxygen through nasal cannula. In the morning patient had increased of breath with palpitations. Vital on admission temperature 98.1, pulse 76, respiratory rate 24, blood pressure 131/68 saturating more than 96% on 2 L. Pertinent labs on admission because it is a 13.6 without any bandemia, H&H low 9.2/28(close to his baseline), BUN and creatinine 30/1.7(baseline creatinine 1.9 ), slight hyponatremia 136, elevated proBNP 7900. EKG and done in the ED showed ventricular paced rhythm heart rate 113 Chest x-ray: Findings suspicious for mild\\early congestive heart failure. Small right pleural effusion with possible concomitant opacity could reflect atelectasis or evolving infiltrate. Echo done in June 2016: Normal size left ventricle. Mild to moderate concentric left ventricular hypertrophy. Left ventricular systolic function is mildly decreased with estimated ejection fraction 55-60%. There is mild postero-lateral hypokinesis seen. Assessment and plan Patient is a 76-year-old gentleman with a past mental history significant for recurrent nosebleeds/epistaxis status post cauterization, atrial fibrillation on Xarelto, coronary artery disease (history of multiple stents), cardiomyopathy status post pacemaker/defibrillator, COPD(on 4 L of oxygen at bedtime), history of MRSA pneumonia June 2016, recently admitted to [facility] due to epistaxis and C. difficile colitis presented to the ED for further evaluation of worsening shortness of breath and cough. Problem list Acute hypoxic respiratory failure due to possible evolving pneumonia (History of right middle lobe bronchiectasis from previous pneumonia with MRSA colonization) History of paroxysmal atrial fibrillation on Xarelto History of coronary artery disease status post multiple stents History of cardiomyopathy, status post pacemaker/defibrillator. [place] low extremity Edema History of COPD on 1 L of oxygen at bedtime History of chronic kidney disease stage IIIB History of chronic normocytic anemia likely due to recurrent epistaxis History of insulin-dependent diabetes mellitus History of gout 1.. Acute hypoxic respiratory failure due to possible evolving pneumonia ( History of right middle lobe bronchiectasis from previous pneumonia with MRSA colonization) with COPD exacerbation. * Admit the patient to telemetry floor. * Pt received IV doxycycline for possible MRSA pneumonia, and ceftazidime in ER ,consider discontinuing the antibiotics if pt remains afebrile(recent of c diff , careful with antibiotics ) * blood cultures and sputum cultures have been sent. * Patient received 1 dose of IV Solu-Medrol 125 mg in the ED, still has bilateral wheeze on exam continue with IV Solu-Medrol 40 mg every 12 for now. * Continue home inhalers * TRC evaluation. * Obtain pulm consult with Dr. Shell 2.History of paroxysmal atrial fibrillation on Xarelto * Patient received funding dose of IV Cardizem push in the ED, heart rate is currently stable continue with home dose of Cardizem 120 mg daily. * Continue home dose of amiodarone 200 mg daily. * Continue Xarelto. 3.History of coronary artery disease status post multiple stents: * Continue aspirin and statins 4 [place] low extremity Edema: * Patient was seen by Dr. Ramirez the slip cover maker last week and his Lasix dose has been increased to 80 mg daily. 5.History of chronic normocytic anemia likely due to recurrent epistaxis(status post cauterization)-recently * H&H is currently stable without any signs of bleed . * Repeat CBC tomorrow 6.History of chronic kidney disease(stage IIIB) * Monitor BEP * Avoid any nephrotoxic agents. 7. History of insulin-dependent diabetes mellitus * Start the patient on NovoLog sliding scale with Accu-Cheks * Carbohydrate consistent diet 8 History of gout * Continue home dose of allopurinol * Hold prednisone as patient is on Solu-Medrol now Mild to moderate pain controlled with Tylenol and oxycodone DVT prophylaxis Xarelto Patient is full code As Ranked By This Provider Problem List: 1. ATRIAL FIBRILATION 2. COPD (chronic obstructive pulmonary disease) 3. Pneumonia Qualifiers Pneumonia type: due to unspecified organism Laterality: right Lung location: lower lobe of lung Qualified Code: J18.1 - Lobar pneumonia, unspecified organism 4. Hypomagnesemia Core Measures/Miscellaneous Acute Coronary Syndrome ACS Diagnosis: No Cerebrovascular Accident CVA/TIA Diagnosis: No Congestive Heart Failure CHF Diagnosis: No VTE (View Protocol) VTE Risk Factors: Acute medical illness, Age > 40 [facility] prophylaxis d/t: VTE low risk, No contraindications No VTE Pharm Prophylaxis d/t: VTE low risk, No contraindications VTE Diagnosis: No VTE Type: NONE VTE Confirmed by (Test): NONE Sepsis (View Protocol) Severe Sepsis Present: No Septic Shock Septic Shock Present: No Miscellaneous Documentation Attending Case Discussed With: SCARLETT DELATORRE MD Primary Care Physician: SCARLETT DELATORRE MD Patient sees these Specialists Dr James Shell Level of Patient Care: Telemetry Resident Review Statement Resident Statement: examined this patient, discussed with hr internship
--- NOTE | 2016-08-29 10:24 | NUR ---
PHARMACY WORKING ON GETTING 10 AM MEDS VERIFIED , THEY ARE NOT READY AT THIS TIME.
--- NOTE | 2016-08-29 10:26 | NUR ---
PT REMAINS CP FREE AT THIS TIME. PACED ON MONITOR HR 96-107, O2 SAT RANGES FROM 92-95 % ON NC VIA 2L .PT MOVED TO ROOM 21 DUE TO HE IS AN TELEMETRY HOLD.
--- NOTE | 2016-08-29 10:51 | NUR ---
PT ROOM ASSIGNMENT 183 NURSE INFORMED
--- NOTE | 2016-08-29 10:56 | NUR ---
MARIA ISABEL DIRECTOR [employer] CALLED STATES TO THIS MST BED 183 HAS BEEN CANCLED FOR THIS PT AT THIS TIME
--- NOTE | 2016-08-29 12:00 | NUR ---
MEDICATED WITH ALL DAILY MEDS. IPOC IN PROGRESS
--- NOTE | 2016-08-29 12:25 | NUR ---
PT GIVEN LUNCH TRAY. INSULIN HELD PER SLIDING SCALE FOR ACCUCHECK 140
--- NOTE | 2016-08-29 13:24 | Cons- Cardiology ---
General Information and HPI Consulting Request Date of Consult: 08/29/16 Requested By: SCARLETT WATT MD Reason for Consult: Recurrent pneumonia/CHF/atrial fibrillation Source of Information: patient, old records Exam Limitations: no limitations History of Present Illness: The patient is a 76-year-old man well known to me. He has underlying coronary artery disease with ischemic cardiomyopathy. He has dual-chamber biventricular pacemaker with relatively normal left ventricular systolic function on last determination. He has paroxysmal atrial fibrillation but he has been in persistent atrial fibrillation for the last 3 or 4 weeks. He was hospitalized here a few weeks ago with epistaxis which finally resolved and he is back on anticoagulants. Recently he has become more short of breath transiently relieved by inhalers but this has persisted. He is also bothered by atrial fibrillation which is at a mild to moderate rate on occasion. He is on amiodarone and I have discussed possible cardioversion with him as an outpatient recently. Today he presents with worsening shortness of breath and his chest x- ray is consistent with right pleural effusion, possible pneumonia and mild CHF. Allergies/Medications Allergies: Coded Allergies: NO KNOWN ALLERGIES (UNKNOWN 08/10/16) Home Med List: Albuterol Sulfate 2.5 MG/3 ML (0.083 %) VIAL.NEB 1 Vial INH/ASHLEY TID PRN wheezing Albuterol Sulfate (Ventolin Hfa) 18 GM HFA.AER.AD 2 PUF INH Q6P PRN SHORTNESS OF BREATH Allopurinol 300 MG TABLET 1 TAB PO DAILY GOUT (Reported) Amiodarone HCl 200 MG TABLET 1 TAB PO DAILY AFIB (Reported) Diltiazem HCl (Cardizem Cd) 120 MG CAP.ER.24H 120 MG PO DAILY Afib Fluticasone/Vilanterol (Breo Ellipta 100-25 Mcg INH) 100 MCG-25 MCG/DOSE BLST.W.DEV 1 PUFF INH DAILY BREATHING PROBLEMS (Reported) Furosemide (Lasix) 40 MG TABLET 2 TAB PO DAILY fluid overload Insulin Aspart, Recombinant (Novolog Flexpen) 100 UNIT/ML INSULN.PEN 1 UNITS SC AD DM DIRECTED Lactobac Cmb #3/Fos/Pantethine (Probiotic & Acidophilus Cap) 300MM-250 CAPSULE 1 CAP PO BID DIARRHEA Magnesium Oxide 400 MG TABLET 1 TAB PO DAILY SUPPLEMENT (Reported) Multivit-Min/FA/Lycopen/Lutein (Centrum Silver Tablet) 0.4 MG-300 MCG-250 MCG TABLET 1 TAB PO DAILY VITAMIN SUPPORT (Reported) Pravastatin Sodium 80 MG TABLET 1 TAB PO DAILY HLD (Reported) Prednisone 5 MG TABLET 1 TAB PO DAILY GOUT (Reported) Rivaroxaban (Xarelto) 15 MG TABLET 1 TAB PO DAILY Afib (Reported) Tamsulosin HCl (Flomax) 0.4 MG CAP.ER.24H 1 CAP PO DAILY PROSTATE (Reported) Tiotropium [place] (Spiriva) 18 MCG CAP.W.DEV 1 CAP INH DAILY COPD (Reported) Tramadol HCl 50 MG TABLET 1 TAB PO Q12P PRN headcahe and nasal congestion Vitamin B Complex (B Complex) 1 EACH TABLET 1 TAB PO DAILY VITAMIN SUPPORT ( Reported) Review of Systems Review of Systems: No other complaints Past History Travel History Traveled to [place] past 21 day No Medical History Blood Transfusion Hx: Yes Neurological: NONE EENT: epistaxis, HEARING LOSS Cardiovascular: AFIB, CHF, hypertension, hyperlipidemia, STENTS x 5 LCW PACER/ DEBRILLATOR Respiratory: COPD, pneumonia Gastrointestinal: NONE Hepatic: NONE Renal: NONE Musculoskeletal: gout, osteoarthritis Psychiatric: NONE Endocrine: diabetes Blood Disorders: NONE Cancer(s): NONE 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 Relation not specified for: Fam hx-ischem heart disease Fam hx-ischem heart disease Psychosocial History Where Do You Live? Home Who Do You Live With? spouse Services at Home: None Primary Language: Wallisian Smoking Status: Former Smoker ETOH Use: denies use Illicit Drug Use: denies illicit drug use Functional Ability ADLs Independent: dressing, eating, toileting, bathing. Ambulation: independent IADLs Independent: shopping, housework, finances, food prep, telephone, transportation , medication admin. ECHO Results (as available) Report: CONCLUSIONS Mild concentric left ventricular hypertrophy. Left ventricular ejection fraction is estimated at 55-60 %. There is mild inferolateral hypokinesis. Other perez all contract well. Catheter/pacemaker wire in the right ventricular cavity. Catheter/pacemaker wire in the right atrial appendage. Mild to moderate left atrial dilatation. Mild to moderate thickening/calcification of the mitral valve leaflets. Sdwl-to-jircfoaj mitral regurgitation. Focal thickening of the aortic valve cusps. No aortic stenosis. Trace aortic regurgitation. Right ventricular systolic pressure estimated to be elevated at 40- 45 mmHg. The IVC is moderately dilated. Results are similar to the last echocardiogram of 12/02/2014, except that mild inferolateral hypokinesis of the left ventricle is noted on the current study. Exam & Diagnostic Data Vital Signs and I&O Vital Signs Date Time Temp Pulse Resp B/P B/P Pulse O2 O2 Flow FiO2 Mean Ox Delivery Rate 08/29 1155 105 138/62 08/29 1155 105 138/62 08/29 1150 Nasal 2.0L Cannula 08/29 1025 98.4 105 20 138/62 92 Nasal 2.0L Cannula 08/29 0834 97.9 102 20 135/56 95 Nasal 2.0L Cannula 08/29 0813 Nasal 2.0L Cannula 08/29 0807 96 129/62 08/29 0806 99 140/63 08/29 0759 92 Room Air 08/29 0745 112 145/63 08/29 0727 98.1 76 24 131/68 95 Nasal 2.0L Cannula Intake & Output 08/29 1600 08/29 0800 08/29 0000 08/28 1600 08/28 0800 08/28 0000 Intake Total 0 Output Total Balance 0 Intake, Oral 0 Patient 185 lb 183 lb Weight Weight Estimated Measurement Method Physical Exam: NAD HEENT normal Chest decreased breath sounds, some ronchi, mild wheezing Ext. no edema Labs/[place] Results: Laboratory Tests 08/29 0717 Chemistry Sodium (137 - 145 mmol/L) 136 L Potassium (3.5 - 5.1 mmol/L) 3.9 Chloride (98 - 107 mmol/L) 98 Carbon Dioxide (22 - 30 mmol/L) 26 Anion Gap (5 - 16) 12 BUN (9 - 20 mg/dL) 30 H Creatinine (0.7 - 1.2 mg/dL) 1.7 H Estimated GFR (>60 ml/min) 39 L BUN/Creatinine Ratio (7 - 25 %) 17.6 Glucose (65 - 99 mg/dL) 151 H Calcium (8.4 - 10.2 mg/dL) 8.2 L Magnesium (1.6 - 2.3 mg/dL) 1.7 Total Bilirubin (0.2 - 1.3 mg/dL) 0.6 AST (17 - 59 U/L) 24 ALT (21 - 72 U/L) 45 Alkaline Phosphatase (< 127 U/L) 93 Troponin I (<0.11 ng/ml) 0.05 Anw-B-Dlrhbnslrlw Pept (<125 pg/mL) 7900 H Total Protein (6.3 - 8.2 g/dL) 5.5 L Albumin (3.5 - 5.0 g/dL) 3.0 L Globulin (1.9 - 4.2 gm/dL) 2.5 Albumin/Globulin Ratio (1.1 - 2.2 %) 1.2 Coagulation PT (9.4 - 12.5 SEC) 22.5 H INR (0.90 - 1.17) 2.16 H APTT (25 - 37 SEC) 42 H Hematology CBC w Diff NO MAN DIFF REQ WBC (4.8 - 10.8 /CUMM) 13.6 H RBC (4.70 - 6.10 /CUMM) 3.47 L Hgb (14.0 - 18.0 G/DL) 9.2 L Hct (42 - 52 %) 28.1 L MCV (80.0 - 94.0 FL) 81.0 MCH (27.0 - 31.0 PG) 26.6 L RDW (11.5 - 14.5 %) 18.4 H Plt Count (130 - 400 /CUMM) 226 MPV (7.4 - 10.4 FL) 6.9 L Gran % (42.2 - 75.2 %) 91.3 H Lymphocytes % (20.5 - 51.1 %) 4.1 L Monocytes % (1.7 - 9.3 %) 4.1 Eosinophils % (0 - 5 %) 0.1 Basophils % (0.0 - 2.0 %) 0.4 Absolute Granulocytes (1.4 - 6.5 /CUMM) 12.4 H Absolute Lymphocytes (1.2 - 3.4 /CUMM) 0.6 L Absolute Monocytes (0.10 - 0.60 /CUMM) 0.6 Absolute Eosinophils (0.0 - 0.7 /CUMM) 0 Absolute Basophils (0.0 - 0.2 /CUMM) 0 PUBS MCHC (33.0 - 37.0 G/DL) 32.8 L Diagnostic Data EKG Results Atrial fibrillation at a rate of about 110 with biventricular pacing CXR Results PATIENT: SONDRA CANO PRESENT AGE: 76 PATIENT ACCOUNT NO: [id number] : 39 LOCATION: [facility] ORDERING PHYSICIAN: BRII CARRANZA MD SERVICE DATE: 08/29/16 EXAM TYPE: RAD - XRY-PORTABLE CHEST XRAY EXAMINATION: XR PORTABLE CHEST CLINICAL INFORMATION: Wheezing cough shortness of breath COMPARISON: Prior chest 08/16/2016 TECHNIQUE: Portable frontal view of the chest was obtained. FINDINGS: There is a new right pleural effusion. There may be some concomitant opacity. There is mild increased interstitial markings. A dual-lead pacer again noted with leads intact. Calcification of the dorsal aorta. Slight prominence of central pulmonary vasculature. IMPRESSION: Findings suspicious for mild\E\early congestive heart failure. Small right pleural effusion with possible concomitant opacity could reflect atelectasis or evolving infiltrate. DICTATED BY: KELLEY SIMPSON MD DATE/TIME DICTATED:08/29/16808 LUNG SPLITTER:SANTANA DATE/TIME TRANSCRIBED:08/29/16808 CONFIDENTIAL, DO NOT COPY WITHOUT APPROPRIATE AUTHORIZATION. <Electronically signed in Other Vendor System> SIGNED BY: KELLEY SIMPSON MD 08/29 Assessment/Plan Assessment/Plan The patient presents with worsening shortness of breath. I think this is mostly on a pulmonary basis, but there may be some congestive heart failure changes as well. I suggest one dose of diuretic for now intravenously. He should be monitored and if he does not return spontaneously to sinus rhythm I will probably cardiovert him on this admission. Consult Acknowledgment - Thank you for your consult request.
--- NOTE | 2016-08-29 13:29 | NUR ---
AT BEDSIDE FOR EVAL
[2016-08-29 14:26] VITALS: BP 131/62
--- NOTE | 2016-08-29 14:56 | NUR ---
PLACED ON ALPS AND PT GIVEN NEW NC TUBING TO HOLD IN MOUTH VS NOSE DUE TO NASAL CONGESTION AFTER CAUTERIZATION. REPORTS IMRPOVEMENT IN COMFORMT. NEW LUNCH TRAY ORDERED
--- NOTE | 2016-08-29 17:10 | PN- Housestaff ---
Subjective Follow-up For: Acute hypoxic respiratory failure due to possible evolving pneumonia (History of right middle lobe bronchiectasis from previous pneumonia with MRSA colonization) History of paroxysmal atrial fibrillation on Xarelto History of coronary artery disease status post multiple stents Review of Systems Constitutional: Denies: no symptoms. Cardiovascular: Reports: edema. Respiratory: Reports: cough, short of breath. Gastrointestinal: Reports: abdominal pain, bloating, constipation. Neurological/Psychological: Denies: no symptoms. Objective Last 24 Hrs of Vital Signs/I&O Vital Signs Date Time Temp Pulse Resp B/P B/P Pulse O2 O2 Flow FiO2 Mean Ox Delivery Rate 08/29 1639 96.8 85 20 129/68 97 Room Air 08/29 1426 98.2 96 20 131/62 94 Nasal 3.0L Cannula 08/29 1155 105 138/62 08/29 1155 105 138/62 08/29 1150 Nasal 2.0L Cannula 08/29 1025 98.4 105 20 138/62 92 Nasal 2.0L Cannula 08/29 0834 97.9 102 20 135/56 95 Nasal 2.0L Cannula 08/29 0813 Nasal 2.0L Cannula 08/29 0807 96 129/62 08/29 0806 99 140/63 08/29 0759 92 Room Air 08/29 0745 112 145/63 12 0727 98.1 76 24 131/68 95 Nasal 2.0L Cannula Intake & Output 08/29 1600 12 0800 08/29 0000 Intake Total 480 0 Output Total Balance 480 0 Intake, Oral 480 0 Patient 185 lb 183 lb Weight Weight Estimated Measurement Method Physical Exam General Appearance: Alert, Oriented X3, Cooperative, No Acute Distress Skin: No Rashes, No Breakdown Neck: Supple, No JVD Cardiovascular: Normal S1, Normal S2, No Murmurs, irreguar irregular Lungs: bilateral wheezes and crep Abdomen: Normal Bowel Sounds, Soft, No Tenderness Extremities: 2+ pitting edema Assessment/Plan Assessment: 76-year-old gentleman with a past mental history significant for recurrent nosebleeds/epistaxis status post cauterization, atrial fibrillation on Xarelto, coronary artery disease (history of multiple stents), cardiomyopathy status post pacemaker/defibrillator, COPD(on 1 L of oxygen at bedtime), history of MRSA pneumonia June 2016, recently admitted to [facility] due to epistaxis and C. difficile colitis presented to the ED for further evaluation of worsening shortness of breath and cough. he reports that his shortness of breath mostly exertional for a couple of weeks now, getting worse. Also he reports productive cough for the last 2-3 days without any fever or chills. Patient denies any chest discomfort. Denies any recent travels/ sick contacts .he reports worsening of his SOB this morning , and he measered his heart rate by using a monitor which recorded it to be 110- 140 Vital on admission temperature 98.1, pulse 76, respiratory rate 24, blood pressure 131/68 saturating more than 96% on 2 L. Pertinent labs on admission because it is a 13.6 without any bandemia, H&H low 9.2/28(close to his baseline), BUN and creatinine 30/1.7(baseline creatinine 1.9 ), slight hyponatremia 136, elevated proBNP 7900. # Acute hypoxic respiratory failure: -Due to possible pneumonia versus COPD exacerbation WBC: 13.6 -CXR: Findings suspicious for mild\\early congestive heart failure. Small right pleural effusion with possible concomitant opacity could reflect atelectasis or evolving infiltrate. -Monitor and telemetry floor -IV doxycycline for possible MRSA and ceftazidime -Patient received 1 dose of IV Solu-Medrol in the ED will continue his IV Solu- Medrol 40 mg q8 -Follow-up blood cultures and sputum cultures -TRC evaluation ,Nebulizer -Pulmonary consult will be appreciated #History of paroxysmal atrial fibrillation currently stable -EKG and done in the ED showed ventricular paced rhythm heart rate 113 -Patient received funding dose of IV Cardizem push in the ED,heart rate is currently stable -continue with home meds of Cardizem 120 mg daily and amiodarone 200 mg daily and Xarelto - cardioversion if he doesn't revert to NSR spontanously as per Dr Ramirez recomm #History of coronary artery disease status post stents: -Echo done in June 2016:Normal size left ventricle. Mild to moderate concentric left ventricular hypertrophy. Left ventricular systolic function is mildly decreased with estimated ejection fraction 55-60%. There is mild postero- lateral hypokinesis seen -Continue aspirin and statins # History of chronic kidney disease(stage IIIB) * Monitor BEP cr today is 1.7 * Avoid any nephrotoxic agents. #Bilateral low extremity Edema: was given lasix once will continue Lasix 80 mg daily as per Dr ramirez # History of chronic normocytic anemia: currently satble hgb: 9.2 follow up his CBC tomorrow\ iron studies #insulin-dependent diabetes mellitus: -Novolog sliding scale -Carbohydrate consistent diet #History of gout * Continue home dose of allopurinol Problem List: 1. Pneumonia 2. Acute respiratory failure with hypoxia 3. Chronic renal insufficiency 4. Atrial fibrillation with rapid ventricular response 5. Pleural effusion 6. Anemia 7. COPD with exacerbation 8. IDDM (insulin dependent diabetes mellitus) 9. Cardiomyopathy Pain Ratin Pain Location: n/a Pain Goal: Remain pain free Pain Plan: tylenol oxycodone Tomorrow's Labs & Rationales: cbc: pneumonia bep: on lasix DVT/Prophylaxis: pharmacological
--- NOTE | 2016-08-29 18:09 | Admission Certification ---
Admission Certification Certification Statement - As attending physician, I certify that at the time of - admission, based on clinical presentation, severity of - symptoms, need for further diagnostic testing and - therapeutic interventions, and risk of adverse outcomes - without in-hospital treatment, in my clinical assessment, - this patient requires an acute hospital stay for a minimum - of two nights or longer. I have also considered psychsocial - factors such as support system, advanced age, financial - issues, cognitive issues, and failed out-patient treatments, - past re-admission history, safety of patient, and lack of - compliance as applicable. Specific rationale supporting this admission is: Increased shortness of breath, congestive heart failure, atrial fibrillation, possible pneumonia
--- NOTE | 2016-08-29 18:11 | PN- Att Addend ---
Attending Addendum Attending Brief Note 76-year-old white male with many comorbidities was just in the hospital after epistaxis and anemia. Went home, again comes back in this time with more shortness of breath hardly able to walk but also bothered by his atrial fibrillation. In the ER was evaluated and has his congestive heart failure pleural effusion and the possible pneumonia. Patient will be admitted treated for the pneumonia and have Dr. Ramirez evaluate his heart problems. Laboratory Tests 08/29 0717 Chemistry Sodium (137 - 145 mmol/L) 136 L Potassium (3.5 - 5.1 mmol/L) 3.9 Chloride (98 - 107 mmol/L) 98 Carbon Dioxide (22 - 30 mmol/L) 26 Anion Gap (5 - 16) 12 BUN (9 - 20 mg/dL) 30 H Creatinine (0.7 - 1.2 mg/dL) 1.7 H Estimated GFR (>60 ml/min) 39 L BUN/Creatinine Ratio (7 - 25 %) 17.6 Glucose (65 - 99 mg/dL) 151 H Calcium (8.4 - 10.2 mg/dL) 8.2 L Magnesium (1.6 - 2.3 mg/dL) 1.7 Total Bilirubin (0.2 - 1.3 mg/dL) 0.6 AST (17 - 59 U/L) 24 ALT (21 - 72 U/L) 45 Alkaline Phosphatase (< 127 U/L) 93 Troponin I (<0.11 ng/ml) 0.05 Eoz-A-Inwgbqywciz Pept (<125 pg/mL) 7900 H Total Protein (6.3 - 8.2 g/dL) 5.5 L Albumin (3.5 - 5.0 g/dL) 3.0 L Globulin (1.9 - 4.2 gm/dL) 2.5 Albumin/Globulin Ratio (1.1 - 2.2 %) 1.2 Coagulation PT (9.4 - 12.5 SEC) 22.5 H INR (0.90 - 1.17) 2.16 H APTT (25 - 37 SEC) 42 H Hematology CBC w Diff NO MAN DIFF REQ WBC (4.8 - 10.8 /CUMM) 13.6 H RBC (4.70 - 6.10 /CUMM) 3.47 L Hgb (14.0 - 18.0 G/DL) 9.2 L Hct (42 - 52 %) 28.1 L MCV (80.0 - 94.0 FL) 81.0 MCH (27.0 - 31.0 PG) 26.6 L RDW (11.5 - 14.5 %) 18.4 H Plt Count (130 - 400 /CUMM) 226 MPV (7.4 - 10.4 FL) 6.9 L Gran % (42.2 - 75.2 %) 91.3 H Lymphocytes % (20.5 - 51.1 %) 4.1 L Monocytes % (1.7 - 9.3 %) 4.1 Eosinophils % (0 - 5 %) 0.1 Basophils % (0.0 - 2.0 %) 0.4 Absolute Granulocytes (1.4 - 6.5 /CUMM) 12.4 H Absolute Lymphocytes (1.2 - 3.4 /CUMM) 0.6 L Absolute Monocytes (0.10 - 0.60 /CUMM) 0.6 Absolute Eosinophils (0.0 - 0.7 /CUMM) 0 Absolute Basophils (0.0 - 0.2 /CUMM) 0 PUBS MCHC (33.0 - 37.0 G/DL) 32.8 L
--- NOTE | 2016-08-29 19:40 | NUR ---
PT RESTING COMFORTABLY ON BED, DENIES ANY COMPLAINTS AT THIS TIME.
--- NOTE | 2016-08-29 20:19 | NUR ---
DR MCALLISTER AT BEDSIDE FOR EVAL.
--- NOTE | 2016-08-29 20:59 | NUR ---
PT IS GOING TO 178-1
--- NOTE | 2016-08-29 21:13 | NUR ---
REPORT GIVEN TO DELVIN RAMIRZE ON TELEMETRY. PER DELVIN RAMIREZ, ROOM IS BEING CLEANED AND SHE WILL CALL WHEN IT IS OKAY TO SEND PT UP.
--- NOTE | 2016-08-29 22:02 | Cons- Pulmonary ---
General Information and HPI Consulting Request Date of Consult: 08/29/16 Requested By: med team History of Present Illness: Patient is a 76-year-old gentleman with a past mental history significant for recurrent nosebleeds/epistaxis status post cauterization, atrial fibrillation on Xarelto, coronary artery disease (history of multiple stents), cardiomyopathy status post pacemaker/defibrillator, COPD(on 1 L of oxygen at bedtime), history of MRSA pneumonia June 2016, recently admitted to [facility] due to epistaxis and C. difficile colitis presented to the ED for further evaluation of worsening shortness of breath and cough. Patient mentioned that he has been having shortness of breath mostly exertional for a couple of weeks now, getting worse. Also he reports productive cough for the last 2-3 days without any fever or chills. Patient denies any chest discomfort. Denies any recent travels/ sick contacts . His appetite has been good. Denies any nausea vomiting abdominal discomfort no urinary bowel habit complaints Today in the morning his symptoms gotten worse could not able to catch his breath, also he checked his heart rate with a monitor and found that his heart rate was running between 130s to 140s, EMS was called and he was brought to the ED for further evaluation. In the ED patient heart rate was running between 110 to 140s he was given IV Cardizem push 1 time. Patient was also found to be in acute respiratory distress ( wheezing), he was given IV Solu-Medrol 125 once and will put on 2 L of oxygen through nasal cannula. As mentioned above patient recently completed a course of vancomycin for C. difficile colitis(finished on 08/28/16). Patient was seen by Dr. Ramirez the slip bridge operator last week and his Lasix dose was increased to 80 mg daily due to worsening lower extremity edema. He was supposed to see Dr. Delatorre today but couldn't able to make the appointment because of his current condition. Review of Systems Constitutional: Denies: diaphoresis, fever, malaise. EENTM: Denies: blurred vision, double vision, visual changes, eye pain. Cardiovascular: Reports: edema. Denies: chest pain, orthopena, palpitations. Respiratory: Reports: cough, short of breath. GI: Denies: abdominal pain, bloating, constipation, diarrhea. Genitourinary: Denies: dysuria, frequency, hematuria. Musculoskeletal: Denies: back pain, gout, joint pain. Skin: Denies: change in skin color, change in hair/nails, dryness. Neurological/Psychological: Denies: anxiety, ataxia, cognitive dysfunction. Hematologic/Endocrine: Denies: bruising, bleeding. Allergies/Medications Allergies: Coded Allergies: NO KNOWN ALLERGIES (UNKNOWN 08/10/16) Home Med List: Albuterol Sulfate 2.5 MG/3 ML (0.083 %) VIAL.NEB 1 Vial INH/ASHLEY TID PRN wheezing Albuterol Sulfate (Ventolin Hfa) 18 GM HFA.AER.AD 2 PUF INH Q6P PRN SHORTNESS OF BREATH Allopurinol 300 MG TABLET 1 TAB PO DAILY GOUT (Reported) Amiodarone HCl 200 MG TABLET 1 TAB PO DAILY AFIB (Reported) Diltiazem HCl (Cardizem Cd) 120 MG CAP.ER.24H 120 MG PO DAILY Afib Fluticasone/Vilanterol (Breo Ellipta 100-25 Mcg INH) 100 MCG-25 MCG/DOSE BLST.W.DEV 1 PUFF INH DAILY BREATHING PROBLEMS (Reported) Furosemide (Lasix) 40 MG TABLET 2 TAB PO DAILY fluid overload Insulin Aspart, Recombinant (Novolog Flexpen) 100 UNIT/ML INSULN.PEN 1 UNITS SC AD DM DIRECTED Lactobac Cmb #3/Fos/Pantethine (Probiotic & Acidophilus Cap) 300MM-250 CAPSULE 1 CAP PO BID DIARRHEA Magnesium Oxide 400 MG TABLET 1 TAB PO DAILY SUPPLEMENT (Reported) Multivit-Min/FA/Lycopen/Lutein (Centrum Silver Tablet) 0.4 MG-300 MCG-250 MCG TABLET 1 TAB PO DAILY VITAMIN SUPPORT (Reported) Pravastatin Sodium 80 MG TABLET 1 TAB PO DAILY HLD (Reported) Prednisone 5 MG TABLET 1 TAB PO DAILY GOUT (Reported) Rivaroxaban (Xarelto) 15 MG TABLET 1 TAB PO DAILY Afib (Reported) Tamsulosin HCl (Flomax) 0.4 MG CAP.ER.24H 1 CAP PO DAILY PROSTATE (Reported) Tiotropium [place] (Spiriva) 18 MCG CAP.W.DEV 1 CAP INH DAILY COPD (Reported) Tramadol HCl 50 MG TABLET 1 TAB PO Q12P PRN headcahe and nasal congestion Vitamin B Complex (B Complex) 1 EACH TABLET 1 TAB PO DAILY VITAMIN SUPPORT ( Reported) Review of Systems Review of Systems Constitutional: Reports: see HPI. Past History Travel History Traveled to [place] past 21 day No Medical History Blood Transfusion Hx: Yes Neurological: NONE EENT: epistaxis, HEARING LOSS Cardiovascular: AFIB, CHF, hypertension, hyperlipidemia, STENTS x 5 LCW PACER/ DEBRILLATOR Respiratory: COPD, pneumonia Gastrointestinal: NONE Hepatic: NONE Renal: NONE Musculoskeletal: gout, osteoarthritis Psychiatric: NONE Endocrine: diabetes Blood Disorders: NONE Cancer(s): NONE BODY HANGER/Reproductive: 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 Relation not specified for: Fam hx-ischem heart disease Fam hx-ischem heart disease Psychosocial History Where Do You Live? Home Who Do You Live With? spouse Services at Home: None Primary Language: Irish Smoking Status: Former Smoker ETOH Use: denies use Illicit Drug Use: denies illicit drug use Functional Ability ADLs Independent: dressing, eating, toileting, bathing. Ambulation: independent IADLs Independent: shopping, housework, finances, food prep, telephone, transportation , medication admin. Exam & Diagnostic Data Last 24 Hrs of Vital Signs/I&O Vital Signs Date Time Temp Pulse Resp B/P B/P Pulse O2 O2 Flow FiO2 Mean Ox Delivery Rate 08/29 2105 96.7 108 20 141/69 92 Nasal 2.0L Cannula 08/29 1639 96.8 85 20 129/68 97 Nasal 2.0L Cannula 08/29 1600 97 Nasal 2.0L Cannula 08/29 1426 98.2 96 20 131/62 94 Nasal 3.0L Cannula 08/29 1155 105 138/62 08/29 1155 105 138/62 08/29 1150 Nasal 2.0L Cannula 08/29 1025 98.4 105 20 138/62 92 Nasal 2.0L Cannula 08/29 0834 97.9 102 20 135/56 95 Nasal 2.0L Cannula 08/29 0813 Nasal 2.0L Cannula 08/29 0807 96 129/62 08/29 0806 99 140/63 08/29 0759 92 Room Air 08/29 0745 112 145/63 08/29 0727 98.1 76 24 131/68 95 Nasal 2.0L Cannula Intake & Output 08/29 1600 08/29 0800 07 0000 Intake Total 480 0 Output Total Balance 480 0 Intake, Oral 480 0 Patient 185 lb 183 lb Weight Weight Estimated Measurement Method Last 48 Hrs of Labs/[place]: Laboratory Tests 08/29/16 0717: Anion Gap 12, Estimated GFR 39 L, BUN/Creatinine Ratio 17.6, Glucose 151 H, Calcium 8.2 L, Magnesium 1.7, Total Bilirubin 0.6, AST 24, ALT 45, Alkaline Phosphatase 93, Troponin I 0.05, Uqj-J-Azjgsjdiwgo Pept 7900 H, Total Protein 5.5 L, Albumin 3.0 L, Globulin 2.5, Albumin/Globulin Ratio 1.2, PT 22.5 H, INR 2.16 H, APTT 42 H, CBC w Diff NO MAN DIFF REQ, RBC 3.47 L, MCV 81.0, MCH 26.6 L, RDW 18.4 H, MPV 6.9 L, Gran % 91.3 H, Lymphocytes % 4.1 L, Monocytes % 4.1, Eosinophils % 0.1, Basophils % 0.4, Absolute Granulocytes 12.4 H, Absolute Lymphocytes 0.6 L, Absolute Monocytes 0.6, Absolute Eosinophils 0, Absolute Basophils 0, PUBS MCHC 32.8 L Assessment/Plan Impression/Plan: Physical Exam General Appearance Alert, Oriented X3 Skin No Rashes, No Breakdown Neck Supple, No JVD Cardiovascular irregularly irregular rate and rhythm Lungs bilateral inspiratory wheeze on exam Abdomen Normal Bowel Sounds, Soft Neurological Normal Gait, Normal Speech Extremities 2 + pitting edema in lower extremities IMPRESSION This is a gentleman with paroxysmal atrial fibrillation on xeralto, significant COPD, biventricular pacer for a previous wide-complex rhythm, previous coronary artery disease, significant pulmonary hypertension, mitral regurgitation, diabetes, previous gout and osteoarthritis, currently on 24-hour oxygen with 40- pack-year smoking history who has quit smoking few yrs ago now here * Significant hypoxemia with clinical evidence suggestive of acute pulmonary edema with rapid atrial fibrillation with acute diastolic heart failure with recent intubation from acute diastolic heart failure. * No clinical evidence suggestive of active bacterial infection in the lung and patient recently did have significant C. difficile colitis * Significant COPD with exacerbation * Recent Cdiff colitis now status post antibiotic therapy no diarrhea * Recent bilateral epistaxis with nasal packing, was on abx for this, now better * Sig COPD with a right middle lobe bronchiectasis from his previous pneumonia with MRSA colonization. He also has been wheezing consistent with cardiac asthma with COPD exacerbation related to fluid overload * Paroxysmal atrial fibrillation with anticoagulation before, on amiodarone with biventricular pacer. * Recent bronchiolitis with Previous small lung nodules * Chronic kidney disease with atrophic kidney. * Hypertension, gout, previous high blood sugar, previous gout. * Mild aortic aneurysm * BPH on Flomax RECOMMENDATION Lyslo-oou-xqxot nebulizer Intravenous Lasix Discontinue antibiotics Continue other medications and patient may need to be cardioverted if he continues to have rapid A. fib as he clearly goes into acute pulmonary edema and recently did require intubation Watch for worsening diarrhea Strict sugar control Solu-Medrol 60 mg daily IV Lasix twice a day and watch BUN/creatinine Sputum culture CT scan of the chest without IV contrast in 1-2 days after adequate diuresis to evaluate lung nodules and to rule out other pathology Prognosis guarded as he has end-stage COPD and recurrent heart failure Consult Acknowledgment - Thank you for your consult request.
--- NOTE | 2016-08-29 22:07 | NUR ---
PHARMACY CALLED FOR MEDICATIONS.
[2016-08-29 22:56] VITALS: BP 124/64
--- NOTE | 2016-08-30 00:32 | NUR ---
08/29/16 2300 LATE NURSING ENTRY PATIENT RECEIVED FROM ER. PATIENT ALERT AND ORIENTED, 2L NC DENIES SOB, ABD SOFT WITH +BS. VSS AND RECORDED. TM IN PLACE. BLE PEDAL AND ANKLE EDEMA. PATIENT ORIENTED TO ROOM AND [address], [facility].
--- NOTE | 2016-08-30 02:43 | RADIOLOGY REPORT ---
EXAMINATION: XR PORTABLE CHEST CLINICAL INFORMATION: Hypoxia. Desaturation. COMPARISON: 08/29/2016 TECHNIQUE: Portable frontal view of the chest was obtained. FINDINGS: Left chest wall pacer remains in place. Cardiac leads overlie the chest. Low lung volumes. Persistent small right pleural effusion with airspace opacity. Prominent interstitial markings bilaterally. No pneumothorax. The cardiomediastinal silhouette is unchanged. IMPRESSION: Increased small right pleural effusion with airspace opacity. Persistent diffuse interstitial prominence most suggestive of edema.
[2016-08-30 02:56] LABS: ABSOLUTE BASOPHIL COUNT 0 /CUMM (0.0-0.2); ABSOLUTE EOSINOPHIL COUNT 0 /CUMM (0.0-0.7); ABSOLUTE GRANULOCYTE CT 13.8 /CUMM (1.4-6.5); ABSOLUTE LYMPH COUNT 0.5 /CUMM (1.2-3.4); ABSOLUTE MONOCYTE COUNT 0.2 /CUMM (0.10-0.60); BASOPHIL % 0 % (0.0-2.0); EOSINOPHIL % 0.3 % (0-5); GRANULOCYTE % 94.7 % (42.2-75.2); HEMATOCRIT 26.3 % (42-52); MEAN CORPUSCULAR HGB 26.5 PG (27.0-31.0); MEAN CORPUSCULAR HGB CONC 32.8 G/DL (33.0-37.0); MEAN CORPUSCULAR VOLUME 80.9 FL (80.0-94.0); MEAN PLATELET VOLUME 7.6 FL (7.4-10.4); PLATELET COUNT 205 /CUMM (130-400); RBC DISTRIBUTION WIDTH 18.6 % (11.5-14.5); RED BLOOD CELL CT 3.25 /CUMM (4.70-6.10); WHITE BLOOD CELL COUNT 14.6 /CUMM (4.8-10.8)
[2016-08-30 07:33] VITALS: BP 144/62
--- NOTE | 2016-08-30 08:32 | NUR ---
AT 0200 PATIENT CALLED COMPLIANING OF SOB. PATIENT TACHYPNIC OXYGEN SAT 85% ON 35% VM. PATIENT DIAPHORETIC, HEART RATE 140'S. BLOOD SUGAR 174. BP 124/62. RESPIRATORY THERAPY CALLED AND TO SEE PATIENT. DR. LIAO CALLED AND IN TO SEE PATIENT. PATIENT PLACED ON 55% VM AND ABG'S OBTAINED ORDERED. OXYGEN SATURATION CAME UP TO 93% EKG AND TROPONIN AND LABS OBTAINED. HEART RATE DOWN TO 100'S WITH OXYGEN SATURATION IN THE LOW 90'S. PATIENT RR 20. STATES "I FEEL BETTER" WILL CONTINUE TO MONITOR.
--- NOTE | 2016-08-30 09:27 | PN- Housestaff ---
Subjective Follow-up For: Acute hypoxic respiratory failure due to pulmonary edema copd exacerbation History of paroxysmal atrial fibrillation on Xarelto History of coronary artery disease status post multiple stents Complaints: SOB Tele-Events Since Last Visit: pacing 90-120, 140-150 around 1 am Subjective: patient is sitting in bed on nasal oxygen, anxious and SOB Review of Systems Constitutional: Reports: malaise, weakness. Cardiovascular: Reports: edema. Respiratory: Reports: cough, short of breath, sputum production. Gastrointestinal: Denies: no symptoms. Neurological/Psychological: Denies: no symptoms. Objective Last 24 Hrs of Vital Signs/I&O Vital Signs Date Time Temp Pulse Resp B/P B/P Pulse O2 O2 Flow FiO2 Mean Ox Delivery Rate 08/30 0733 98.9 100 20 144/62 98 Non ReBreather 08/30 0152 91 Venti Mask 55% 08/30 0000 93 Venti Mask 35% 08/29 2256 98.8 105 20 124/64 90 Nasal 2.0L Cannula 08/29 2105 96.7 108 20 141/69 92 Nasal 2.0L Cannula 08/29 1639 96.8 85 20 129/68 97 Nasal 2.0L Cannula 08/29 1600 97 Nasal 2.0L Cannula 08/29 1426 98.2 96 20 131/62 94 Nasal 3.0L Cannula 08/29 1155 105 138/62 08/29 1155 105 138/62 08/29 1150 Nasal 2.0L Cannula 08/29 1025 98.4 105 20 138/62 92 Nasal 2.0L Cannula Intake & Output 08/30 1600 08/30 0800 08/30 0000 Intake Total 200 Output Total 500 Balance -300 Intake, Oral 200 Output, Urine 500 Physical Exam General Appearance: Alert, Oriented X3, Cooperative, anxious Skin: No Rashes, No Breakdown, No Significant Lesion Skin Temp/Moisture Exam: Warm/Dry Neck: Supple, No JVD Cardiovascular: Regular Rate, Normal S1, Normal S2, No Murmurs Lungs: bilateral creitations Abdomen: Normal Bowel Sounds, Soft, No Tenderness Extremities: 2+ bilateral pitting edema Current Medications: Current Medications Sig/Clare Start time Last Medication Dose Route Stop Time Status Admin Acetaminophen 650 MG Q6P PRN 08/29 0930 AC PO Allopurinol 300 MG DAILY 08/29 1000 AC 08/29 PO 1155 Amiodarone HCl 200 MG DAILY 08/29 1000 AC 08/29 PO 1155 Budesonide/ 2 PUF BID 08/29 1000 AC 08/29 Formoterol Fumarate INH 2256 Ceftazidime 1,000 MG Q12 08/29 2200 DC 08/29 IV 2256 Diltiazem HCl 120 MG DAILY 08/29 1004 AC 08/29 PO 1155 Diltiazem HCl 360 MG DAILY 08/29 1002 DC PO Doxycycline Hyclate 100 MG DAILY 08/30 1000 CAN Sodium Chloride 100 ML IV Doxycycline Hyclate 100 MG ONCE ONE 08/29 0830 DC 08/29 Sodium Chloride 100 ML IV 08/29 0935 0853 Furosemide 40 MG 7:30 AM, & 4:30 PM 08/30 0730 AC 08/30 IV 0836 Furosemide 80 MG DAILY 08/29 1005 DC 08/29 PO 1155 Furosemide 40 MG DAILY 08/29 1002 DC PO Insulin Aspart 0 TIDAC/HS 08/29 1200 AC 08/30 SC 0834 Lactobacillus 1 CAP BID 08/29 1000 AC 08/29 Acidophilus PO 2256 Magnesium Oxide 400 MG DAILY 08/29 1000 AC 08/29 PO 1155 Methylprednisolone 80 MG DAILY 08/30 1000 AC IV Methylprednisolone 40 MG Q12 08/29 2200 DC 08/29 IV 2256 Oxycodone HCl 5 MG Q6PRN PRN 08/29 0930 AC PO Pravastatin Sodium 80 MG DAILY 08/29 1000 AC 08/29 PO 1155 Rivaroxaban 15 MG DAILY 08/29 1000 AC 08/29 PO 1155 Tamsulosin HCl 0.4 MG DAILY 08/29 1000 AC 08/29 PO 1155 Tiotropium [place] 1 PUF DAILY 08/29 1000 AC 08/29 INH 1155 Tramadol HCl 50 MG Q6P PRN 08/29 0930 AC PO Last 24 Hrs of Lab/[place] Results Last 24 Hrs of Labs/Mics: Laboratory Tests 08/30/16 0200: Anion Gap 14, Estimated GFR 39 L, BUN/Creatinine Ratio 20.0, Troponin I 0.05, CBC w Diff MAN DIFF ORDERED, RBC 3.25 L, MCV 80.9, MCH 26.5 L, RDW 18.6 H, MPV 7.6, Gran % 94.7 H, Lymphocytes % 3.4 L, Monocytes % 1.6 L, Eosinophils % 0.3, Basophils % 0 L, Absolute Granulocytes 13.8 H, Segmented Neutrophils 99 H, Absolute Lymphocytes 0.5 L, Lymphocytes 1 L, Absolute Monocytes 0.2, Absolute Eosinophils 0, Absolute Basophils 0, Platelet Estimate ADEQUATE, Polychromasia 1+, Hypochromic-Microcytic 1+, Poikilocytosis 2+, Ovalocytes 1+, Stomatocytes 1+, PUBS MCHC 32.8 L, Fld Total RBCs Counted 100 08/30/16 0150: pH 7.49 H, pCO2 30 L, pO2 59 L, HCO3 22, ABG O2 Sat (Measured) 90.0 L, P-50 (Temp Corrected) Y, Carboxyhemoglobin 0.5 L, O2 Concentration % 55%, Temperature 98.8, O2 Delivery Method V/M, Phlebotomy Draw Site RIGHT RADIAL 08/30/16 0143: Troponin I Cancelled Assessment/Plan Assessment: 76-year-old gentleman with a past mental history significant for recurrent nosebleeds/epistaxis status post cauterization, atrial fibrillation on Xarelto, coronary artery disease (history of multiple stents), cardiomyopathy status post pacemaker/defibrillator, COPD(on 1 L of oxygen at bedtime), history of MRSA pneumonia June 2016, recently admitted to [facility] due to epistaxis and C. difficile colitis presented to the ED for further evaluation of worsening shortness of breath and cough. # Acute hypoxic respiratory failure: -Due to pulmoanry edema 2/2 rapid a fib vs COPD exacerbation (WBC: 14.6 most likely due to steroid use) -CXR today : Increased small right pleural effusion with airspace opacity. Persistent diffuse interstitial prominence most suggestive of edema. -Monitor on telemetry floor - IV lasix BID , f/u BUN and Creatinine - dc IV doxycycline and ceftazidime as per dr Shell -start Solu-Medrol 40 mg from tomorrow as per Dr. Shell -Follow-up blood cultures and sputum cultures -TRC evaluation ,Nebulizer - CT chest without iv contrast tomorrow #History of paroxysmal atrial fibrillation currently stable -EKG and done in the ED showed ventricular paced rhythm heart rate 113 -Patient received funding dose of IV Cardizem push in the ED,heart rate is currently stable -continue with home meds of Cardizem 120 mg daily and amiodarone 200 mg daily and Xarelto - cardioversion tomorrow if he doesn't revert to NSR spontanously as per Dr Ramirez recomm #History of coronary artery disease status post stents: -Echo done in June 2016:Normal size left ventricle. Mild to moderate concentric left ventricular hypertrophy. Left ventricular systolic function is mildly decreased with estimated ejection fraction 55-60%. There is mild postero- lateral hypokinesis seen -Continue aspirin and statins # History of chronic kidney disease(stage IIIB) -Monitor BEP cr today is 1.7 -Avoid any nephrotoxic agents. -f/u bep #Bilateral low extremity Edema: was given lasix iv once will continue Lasix 80 mg po daily as per Dr ramirez # History of chronic normocytic anemia: currently stable hgb: 8.6<---9.2 follow up his CBC tomorrow\ iron studies #insulin-dependent diabetes mellitus: -Novolog sliding scale -Carbohydrate consistent diet #History of gout * Continue home dose of allopurinol Problem List: 1. Gout 2. IDDM (insulin dependent diabetes mellitus) 3. Cardiomyopathy 4. Pneumonia 5. Chronic renal insufficiency 6. Atrial fibrillation with rapid ventricular response 7. Pleural effusion 8. Acute exacerbation of chronic obstructive pulmonary disease Pain Ratin Pain Location: n/a Pain Goal: Remain pain free Pain Plan: tylenol oxycodone Tomorrow's Labs & Rationales: bep cbc DVT/Prophylaxis: pharmacological
--- NOTE | 2016-08-30 10:14 | PN- Cardiology ---
Subjective Subjective: The patient had difficulty breathing overnight. He was given a respiratory treatment. A chest x-ray was done which showed probable congestion and a pleural effusion. Lab work was unrevealing and troponin is still negative at 0.05. This morning he is feeling much better. He states his breathing is back to almost normal. He has had no chest pain. He remains in atrial fibrillation with biventricular pacing. Objective Vital Signs and I&Os Vital Signs Date Time Temp Pulse Resp B/P B/P Pulse O2 O2 Flow FiO2 Mean Ox Delivery Rate 08/30 0733 98.9 100 20 144/62 98 Non ReBreather 08/30 0152 91 Venti Mask 55% 08/30 0000 93 Venti Mask 35% 08/29 2256 98.8 105 20 124/64 90 Nasal 2.0L Cannula 08/29 2105 96.7 108 20 141/69 92 Nasal 2.0L Cannula 08/29 1639 96.8 85 20 129/68 97 Nasal 2.0L Cannula 08/29 1600 97 Nasal 2.0L Cannula 08/29 1426 98.2 96 20 131/62 94 Nasal 3.0L Cannula 08/29 1155 105 138/62 08/29 1155 105 138/62 08/29 1150 Nasal 2.0L Cannula 08/29 1025 98.4 105 20 138/62 92 Nasal 2.0L Cannula Intake & Output 08/30 1600 08/30 0800 08/30 0000 08/29 1600 08/29 0800 08/29 0000 Intake Total 200 480 0 Output Total 500 Balance -300 480 0 Intake, Oral 200 480 0 Output, Urine 500 Patient 185 lb 183 lb Weight Weight Estimated Measurement Method Physical Exam: He is in no distress HEENT exam is normal Chest reveals mild wheezing and a few rhonchi Heart reveals irregular rhythm at a moderate rate and no murmurs Extremities no edema Current Medications: Current Medications Sig/Clare Start time Last Medication Dose Route Stop Time Status Admin Acetaminophen 650 MG Q6P PRN 08/29 0930 AC PO Allopurinol 300 MG DAILY 08/29 1000 AC 08/29 PO 1155 Amiodarone HCl 200 MG DAILY 08/29 1000 AC 08/29 PO 1155 Budesonide/ 2 PUF BID 08/29 1000 AC 08/29 Formoterol Fumarate INH 2256 Ceftazidime 1,000 MG Q12 08/29 2200 DC 08/29 IV 2256 Diltiazem HCl 120 MG DAILY 08/29 1004 AC 08/29 PO 1155 Doxycycline Hyclate 100 MG DAILY 08/30 1000 CAN Sodium Chloride 100 ML IV Furosemide 40 MG 7:30 AM, & 4:30 PM 08/30 0730 AC 08/30 IV 0836 Furosemide 80 MG DAILY 08/29 1005 DC 08/29 PO 1155 Insulin Aspart 0 TIDAC/HS 08/29 1200 AC 08/30 SC 0834 Lactobacillus 1 CAP BID 08/29 1000 AC 08/29 Acidophilus PO 2256 Magnesium Oxide 400 MG DAILY 08/29 1000 AC 08/29 PO 1155 Methylprednisolone 80 MG DAILY 08/30 1000 AC IV Methylprednisolone 40 MG Q12 08/29 2200 DC 08/29 IV 2256 Oxycodone HCl 5 MG Q6PRN PRN 08/29 0930 AC PO Pravastatin Sodium 80 MG DAILY 08/29 1000 AC 08/29 PO 1155 Rivaroxaban 15 MG DAILY 08/29 1000 AC 08/29 PO 1155 Tamsulosin HCl 0.4 MG DAILY 08/29 1000 AC 08/29 PO 1155 Tiotropium [place] 1 PUF DAILY 08/29 1000 AC 08/29 INH 1155 Tramadol HCl 50 MG Q6P PRN 08/29 0930 AC PO Results Last 48 Hrs of Labs/Mics: Laboratory Tests 08/30/16 0200: Anion Gap 14, Estimated GFR 39 L, BUN/Creatinine Ratio 20.0, Troponin I 0.05, CBC w Diff MAN DIFF ORDERED, RBC 3.25 L, MCV 80.9, MCH 26.5 L, RDW 18.6 H, MPV 7.6, Gran % 94.7 H, Lymphocytes % 3.4 L, Monocytes % 1.6 L, Eosinophils % 0.3, Basophils % 0 L, Absolute Granulocytes 13.8 H, Segmented Neutrophils 99 H, Absolute Lymphocytes 0.5 L, Lymphocytes 1 L, Absolute Monocytes 0.2, Absolute Eosinophils 0, Absolute Basophils 0, Platelet Estimate ADEQUATE, Polychromasia 1+, Hypochromic-Microcytic 1+, Poikilocytosis 2+, Ovalocytes 1+, Stomatocytes 1+, PUBS MCHC 32.8 L, Fld Total RBCs Counted 100 08/30/16 0150: pH 7.49 H, pCO2 30 L, pO2 59 L, HCO3 22, ABG O2 Sat (Measured) 90.0 L, P-50 (Temp Corrected) Y, Carboxyhemoglobin 0.5 L, O2 Concentration % 55%, Temperature 98.8, O2 Delivery Method V/M, Phlebotomy Draw Site RIGHT RADIAL 08/30/16 0143: Troponin I Cancelled 08/29/16 0717: Anion Gap 12, Estimated GFR 39 L, BUN/Creatinine Ratio 17.6, Glucose 151 H, Calcium 8.2 L, Magnesium 1.7, Total Bilirubin 0.6, AST 24, ALT 45, Alkaline Phosphatase 93, Troponin I 0.05, [id number] Pept 7900 H, Total Protein 5.5 L, Albumin 3.0 L, Globulin 2.5, Albumin/Globulin Ratio 1.2, PT 22.5 H, INR 2.16 H, APTT 42 H, CBC w Diff NO MAN DIFF REQ, RBC 3.47 L, MCV 81.0, MCH 26.6 L, RDW 18.4 H, MPV 6.9 L, Gran % 91.3 H, Lymphocytes % 4.1 L, Monocytes % 4.1, Eosinophils % 0.1, Basophils % 0.4, Absolute Granulocytes 12.4 H, Absolute Lymphocytes 0.6 L, Absolute Monocytes 0.6, Absolute Eosinophils 0, Absolute Basophils 0, PUBS MCHC 32.8 L Recent Imaging Studies: PATIENT: SONDRA CANO PRESENT AGE: 76 PATIENT ACCOUNT NO: [id number] : 39 LOCATION: [facility] ORDERING PHYSICIAN: LUCA VALDES MD SERVICE DATE: 08/30/16 EXAM TYPE: RAD - XRY-PORTABLE CHEST XRAY EXAMINATION: XR PORTABLE CHEST CLINICAL INFORMATION: Hypoxia. Desaturation. COMPARISON: 08/29/2016 TECHNIQUE: Portable frontal view of the chest was obtained. FINDINGS: Left chest wall pacer remains in place. Cardiac leads overlie the chest. Low lung volumes. Persistent small right pleural effusion with airspace opacity. Prominent interstitial markings bilaterally. No pneumothorax. The cardiomediastinal silhouette is unchanged. IMPRESSION: Increased small right pleural effusion with airspace opacity. Persistent diffuse interstitial prominence most suggestive of edema. DICTATED BY: CARINA LONGORIA,YANETH DATE/TIME DICTATED:08/30/16236 ENERGY EFFICIENCY ENGINEER:SANTANA DATE/TIME TRANSCRIBED:08/30/16 / 236 CONFIDENTIAL, DO NOT COPY WITHOUT APPROPRIATE AUTHORIZATION. <Electronically signed in Other Vendor System> SIGNED BY: CARINA LONGORIA,YANETH 08/30 0243 Assessment/Plan Assessment/Plan The patient is stable at this time. However he did have an episode of shortness of breath overnight. This could have been an episode of mild pulmonary edema. He is receiving IV Lasix at this time. I recommend continuing IV Lasix. I'm going to plan to try and cardiovert him tomorrow assuming he remains in atrial fibrillation. Continue telemetry? Yes
--- NOTE | 2016-08-30 14:24 | PN- Pulmonary ---
Subjective HPI/Critical Care Issues: Did have episode of dyspnea last night Ongoing diuresis no sig fever Objective Current Medications: Current Medications Sig/Clare Start time Last Medication Dose Route Stop Time Status Admin Acetaminophen 650 MG Q6P PRN 08/29 0930 AC PO Allopurinol 300 MG DAILY 08/29 1000 AC 08/30 PO 1052 Amiodarone HCl 200 MG DAILY 08/29 1000 AC 08/30 PO 1052 Budesonide/ 2 PUF BID 08/29 1000 AC 08/30 Formoterol Fumarate INH 1054 Ceftazidime 1,000 MG Q12 08/29 2200 DC 08/29 IV 2256 Diltiazem HCl 120 MG DAILY 08/29 1004 AC 08/30 PO 1050 Doxycycline Hyclate 100 MG DAILY 08/30 1000 CAN Sodium Chloride 100 ML IV Furosemide 40 MG 7:30 AM, & 4:30 PM 08/30 0730 AC 08/30 IV 0836 Furosemide 80 MG DAILY 08/29 1005 DC 08/29 PO 1155 Insulin Aspart 0 TIDAC/HS 08/29 1200 AC 08/30 SC 1227 Lactobacillus 1 CAP BID 08/29 1000 AC 08/30 Acidophilus PO 1225 Magnesium Oxide 400 MG DAILY 08/29 1000 AC 08/30 PO 1050 Methylprednisolone 80 MG DAILY 08/30 1000 AC 08/30 IV 1102 Methylprednisolone 40 MG Q12 08/29 2200 DC 08/29 IV 2256 Oxycodone HCl 5 MG Q6PRN PRN 08/29 0930 AC PO Patient Medication 1 ED .STK-MED ONE 08/30 1412 NH Teaching ED 08/30 1413 Pravastatin Sodium 80 MG DAILY 08/29 1000 AC 08/30 PO 1051 Rivaroxaban 15 MG DAILY 08/29 1000 AC 08/30 PO 1053 Tamsulosin HCl 0.4 MG DAILY 08/29 1000 AC 08/30 PO 1059 Tiotropium [place] 1 PUF DAILY 08/29 1000 AC 08/30 INH 1054 Tramadol HCl 50 MG Q6P PRN 08/29 0930 AC PO Vital Signs & I&O Last 24 Hrs of Vitals and I&O: Vital Signs Date Time Temp Pulse Resp B/P B/P Pulse O2 O2 Flow FiO2 Mean Ox Delivery Rate 08/30 1059 98.9 100 20 144/62 08/30 1052 98.9 100 20 144/62 08/30 0733 98.9 100 20 144/62 98 Non ReBreather 08/30 0152 91 Venti Mask 55% 08/30 0000 93 Venti Mask 35% 08/29 2256 98.8 105 20 124/64 90 Nasal 2.0L Cannula 08/29 2105 96.7 108 20 141/69 92 Nasal 2.0L Cannula 08/29 1639 96.8 85 20 129/68 97 Nasal 2.0L Cannula 08/29 1600 97 Nasal 2.0L Cannula 08/29 1426 98.2 96 20 131/62 94 Nasal 3.0L Cannula Intake & Output 08/30 1600 08/30 0800 08/30 0000 Intake Total 200 Output Total 375 500 Balance -375 -300 Intake, Oral 200 Output, Urine 375 500 Impression/Plan Impression/Plan Impression/Plan: Physical Exam General Appearance Alert, Oriented X3 Skin No Rashes, No Breakdown Neck Supple, No JVD Cardiovascular irregularly irregular rate and rhythm Lungs bilateral inspiratory wheeze on exam Abdomen Normal Bowel Sounds, Soft Neurological Normal Gait, Normal Speech Extremities 2 + pitting edema in lower extremities IMPRESSION This is a gentleman with paroxysmal atrial fibrillation on xeralto, significant COPD, biventricular pacer for a previous wide-complex rhythm, previous coronary artery disease, significant pulmonary hypertension, mitral regurgitation, diabetes, previous gout and osteoarthritis, currently on 24-hour oxygen with 40- pack-year smoking history who has quit smoking few yrs ago now here * Significant hypoxemia with clinical evidence suggestive of acute pulmonary edema with rapid atrial fibrillation with acute diastolic heart failure with recent intubation from acute diastolic heart failure. * No clinical evidence suggestive of active bacterial infection in the lung and patient recently did have significant C. difficile colitis * Significant COPD with exacerbation compounded by chf * Recent Cdiff colitis now status post antibiotic therapy no diarrhea * Recent bilateral epistaxis with nasal packing, was on abx for this, now better * Sig COPD with a right middle lobe bronchiectasis from his previous pneumonia with MRSA colonization. He also has been wheezing consistent with cardiac asthma with COPD exacerbation related to fluid overload * Paroxysmal atrial fibrillation with anticoagulation before, on amiodarone with biventricular pacer. * Recent bronchiolitis with Previous small lung nodules * Chronic kidney disease with atrophic kidney. * Hypertension, gout, previous high blood sugar, previous gout. * Mild aortic aneurysm * BPH on Flomax RECOMMENDATION [id number] nebulizer Intravenous Lasix bid and if no sig diuresis needs 60 mg instead of 40 Cardio following with plan for cardioversion Discontinue antibiotics High flow if worse Watch for worsening diarrhea Strict sugar control Solu-Medrol 60 mg daily and reduce to 40 in am Sputum culture CT scan of the chest without IV contrast in 1-2 days after adequate diuresis to evaluate lung nodules and to rule out other pathology Prognosis guarded as he has end-stage COPD and recurrent heart failure
[2016-08-30 15:15] VITALS: BP 122/66
--- NOTE | 2016-08-30 18:15 | PN- Att Addend ---
Attending Addendum Attending Brief Note Patient feeling a little better today, at the bedside still a little short of breath wearing his oxygen vital signs are stable was still in atrial fibrillation. Changes on physical no major changes on the chest x-ray. O2 brush painter Dr. Ramirez patient will be nothing by mouth after midnight and have a cardioversion tomorrow and hopefully convert back to normal sinus rhythm Intake & Output 08/30 1600 08/30 0400 08/29 1600 08/29 0400 08/28 1600 08/28 0400 Intake Total 680 480 Output Total 1475 Balance -795 480 Intake, Oral 680 480 Output, Urine 1475 Patient 185 lb Weight Weight Estimated Measurement Method Current Medications Sig/Clare Start time Last Medication Dose Route Stop Time Status Admin Acetaminophen 650 MG Q6P PRN 08/29 0930 AC PO Allopurinol 300 MG DAILY 08/29 1000 AC 08/30 PO 1052 Amiodarone HCl 200 MG DAILY 08/29 1000 AC 08/30 PO 1052 Budesonide/ 2 PUF BID 08/29 1000 AC 08/30 Formoterol Fumarate INH 1054 Ceftazidime 1,000 MG Q12 08/29 2200 DC 08/29 IV 2256 Diltiazem HCl 120 MG DAILY 08/29 1004 AC 08/30 PO 1050 Doxycycline Hyclate 100 MG DAILY 08/30 1000 CAN Sodium Chloride 100 ML IV Furosemide 60 MG 7:30 AM, & 4:30 PM 08/30 1630 AC 08/30 IV 1712 Furosemide 40 MG 7:30 AM, & 4:30 PM 08/30 0730 DC 08/30 IV 0836 Furosemide 80 MG DAILY 08/29 1005 DC 08/29 PO 1155 Insulin Aspart 0 TIDAC/HS 08/29 1200 AC 08/30 SC 1711 Lactobacillus 1 CAP BID 08/29 1000 AC 08/30 Acidophilus PO 1225 Magnesium Oxide 400 MG DAILY 08/29 1000 AC 08/30 PO 1050 Methylprednisolone 40 MG DAILY 08/31 1000 AC IV Methylprednisolone 80 MG DAILY 08/30 1000 DC 08/30 IV 1102 Methylprednisolone 40 MG Q12 08/29 2200 DC 08/29 IV 2256 Oxycodone HCl 5 MG Q6PRN PRN 08/29 0930 AC PO Patient Medication 1 ED .STK-MED ONE 08/30 1412 DC Teaching ED 08/30 1413 Pravastatin Sodium 80 MG DAILY 08/29 1000 AC 08/30 PO 1051 Rivaroxaban 15 MG DAILY 08/29 1000 AC 08/30 PO 1053 Tamsulosin HCl 0.4 MG DAILY 08/29 1000 AC 08/30 PO 1059 Tiotropium [place] 1 PUF DAILY 08/29 1000 AC 08/30 INH 1054 Tramadol HCl 50 MG Q6P PRN 08/29 0930 AC PO Laboratory Tests 08/30/16 0200: Anion Gap 14, Estimated GFR 39 L, BUN/Creatinine Ratio 20.0, Troponin I 0.05, CBC w Diff MAN DIFF ORDERED, RBC 3.25 L, MCV 80.9, MCH 26.5 L, RDW 18.6 H, MPV 7.6, Gran % 94.7 H, Lymphocytes % 3.4 L, Monocytes % 1.6 L, Eosinophils % 0.3, Basophils % 0 L, Absolute Granulocytes 13.8 H, Segmented Neutrophils 99 H, Absolute Lymphocytes 0.5 L, Lymphocytes 1 L, Absolute Monocytes 0.2, Absolute Eosinophils 0, Absolute Basophils 0, Platelet Estimate ADEQUATE, Polychromasia 1+, Hypochromic-Microcytic 1+, Poikilocytosis 2+, Ovalocytes 1+, Stomatocytes 1+, PUBS MCHC 32.8 L, Fld Total RBCs Counted 100 08/30/16 0150: pH 7.49 H, pCO2 30 L, pO2 59 L, HCO3 22, ABG O2 Sat (Measured) 90.0 L, P-50 (Temp Corrected) Y, Carboxyhemoglobin 0.5 L, O2 Concentration % 55%, Temperature 98.8, O2 Delivery Method V/M, Phlebotomy Draw Site RIGHT RADIAL 08/30/16 0143: Troponin I Cancelled 08/29/16 0717: Anion Gap 12, Estimated GFR 39 L, BUN/Creatinine Ratio 17.6, Glucose 151 H, Calcium 8.2 L, Magnesium 1.7, Total Bilirubin 0.6, AST 24, ALT 45, Alkaline Phosphatase 93, Troponin I 0.05, Uaz-M-Shjxufssiqk Pept 7900 H, Total Protein 5.5 L, Albumin 3.0 L, Globulin 2.5, Albumin/Globulin Ratio 1.2, PT 22.5 H, INR 2.16 H, APTT 42 H, CBC w Diff NO MAN DIFF REQ, RBC 3.47 L, MCV 81.0, MCH 26.6 L, RDW 18.4 H, MPV 6.9 L, Gran % 91.3 H, Lymphocytes % 4.1 L, Monocytes % 4.1, Eosinophils % 0.1, Basophils % 0.4, Absolute Granulocytes 12.4 H, Absolute Lymphocytes 0.6 L, Absolute Monocytes 0.6, Absolute Eosinophils 0, Absolute Basophils 0, PUBS MCHC 32.8 L Microbiology 08/29 924 LOWER RESP: Respiratory Culture - CAN Cancelled: SPECIMEN NOT RECEIVED IN LABORATORY 08/29 924 LOWER RESP: Gram Stain - CAN Cancelled: SPECIMEN NOT RECEIVED IN LABORATORY 08/29 844 BLOOD: Blood Culture - RES 08/29 829 BLOOD: Blood Culture - RES Microbiology Date/Time Procedure - Status Source Growth 08/29 924 Respiratory Culture - CAN LOWER RESP Cancelled: SPECIMEN NOT RECEIVED IN LABORATORY 08/29 924 Gram Stain - CAN LOWER RESP Cancelled: SPECIMEN NOT RECEIVED IN LABORATORY 08/29 844 Blood Culture - RES BLOOD 08/29 829 Blood Culture - RES BLOOD
[2016-08-30 21:55] VITALS: BP 150/62
[2016-08-31 06:53] VITALS: BP 144/60
[2016-08-31 08:43] LABS: ABSOLUTE BASOPHIL COUNT 0 /CUMM (0.0-0.2); ABSOLUTE EOSINOPHIL COUNT 0 /CUMM (0.0-0.7); ABSOLUTE GRANULOCYTE CT 11.6 /CUMM (1.4-6.5); ABSOLUTE LYMPH COUNT 0.3 /CUMM (1.2-3.4); ABSOLUTE MONOCYTE COUNT 0.2 /CUMM (0.10-0.60); BASOPHIL % 0 % (0.0-2.0); EOSINOPHIL % 0 % (0-5); GRANULOCYTE % 95.7 % (42.2-75.2); MEAN CORPUSCULAR HGB CONC 32.4 G/DL (33.0-37.0); MEAN CORPUSCULAR VOLUME 80.1 FL (80.0-94.0); MEAN PLATELET VOLUME 7.7 FL (7.4-10.4); PLATELET COUNT 258 /CUMM (130-400); RBC DISTRIBUTION WIDTH 17.7 % (11.5-14.5); RED BLOOD CELL CT 3.24 /CUMM (4.70-6.10); WHITE BLOOD CELL COUNT 12.2 /CUMM (4.8-10.8)
--- NOTE | 2016-08-31 10:56 | PN- Att Addend ---
Attending Addendum Attending Brief Note Patient had his cardioversion this morning was in normal sinus rhythm for a while, per Dr. Ramirez patient went back into atrial fibrillation. Patient in CAT scan for further testing. No other major changes. Continue observation and monitoring labs and symptoms 24 TOTALS 08/31 0000 08/30 0000 Intake Total 900 480 Output Total 1825 Balance -925 480 Intake, Oral 900 480 Output, Urine 1825 Patient 185 lb Weight Weight Estimated Measurement Method Current Medications Sig/Clare Start time Last Medication Dose Route Stop Time Status Admin Acetaminophen 650 MG Q6P PRN 08/29 0930 AC PO Allopurinol 300 MG DAILY 08/29 1000 AC 08/30 PO 1052 Amiodarone HCl 200 MG DAILY 08/29 1000 AC 08/30 PO 1052 Budesonide/ 2 PUF BID 08/29 1000 AC 08/30 Formoterol Fumarate INH 2138 Diltiazem HCl 120 MG DAILY 08/29 1004 AC 08/30 PO 1050 Furosemide 60 MG 7:30 AM, & 4:30 PM 08/30 1630 AC 08/31 IV 0828 Furosemide 40 MG 7:30 AM, & 4:30 PM 08/30 0730 DC 08/30 IV 0836 Insulin Aspart 0 TIDAC/HS 08/29 1200 DC 08/30 SC 2138 Insulin Human Regular 0 Q6 08/31 0819 AC 08/31 SC 0829 Lactobacillus 1 CAP BID 08/29 1000 AC 08/30 Acidophilus PO 2138 Magnesium Oxide 400 MG DAILY 08/29 1000 AC 08/30 PO 1050 Methylprednisolone 40 MG DAILY 08/31 1000 AC IV Methylprednisolone 80 MG DAILY 08/30 1000 DC 08/30 IV 1102 Oxycodone HCl 5 MG Q6PRN PRN 08/29 0930 AC PO Patient Medication 1 ED .STK-MED ONE 08/30 1412 [place] Teaching ED 08/30 1413 Pravastatin Sodium 80 MG DAILY 08/29 1000 AC 08/30 PO 1051 Rivaroxaban 15 MG DAILY 08/29 1000 AC 08/30 PO 1053 Tamsulosin HCl 0.4 MG DAILY 08/29 1000 AC 08/30 PO 1059 Tiotropium [place] 1 PUF DAILY 08/29 1000 AC 08/30 INH 1054 Tramadol HCl 50 MG Q6P PRN 08/29 0930 AC PO Laboratory Tests 08/31 08/30 0800 0200 Chemistry Sodium (137 - 145 mmol/L) 134 L 136 L Potassium (3.5 - 5.1 mmol/L) 4.0 4.4 Chloride (98 - 107 mmol/L) 99 98 Carbon Dioxide (22 - 30 mmol/L) 24 24 Anion Gap (5 - 16) 12 14 BUN (9 - 20 mg/dL) 53 H 34 H Creatinine (0.7 - 1.2 mg/dL) 1.8 H 1.7 H Estimated GFR (>60 ml/min) 37 L 39 L BUN/Creatinine Ratio (7 - 25 %) 29.4 H 20.0 Troponin I (<0.11 ng/ml) 0.05 Hematology CBC w Diff MAN DIFF ORDERED MAN DIFF ORDERED WBC (4.8 - 10.8 /CUMM) 12.2 H 14.6 H RBC (4.70 - 6.10 /CUMM) 3.24 L 3.25 L Hgb (14.0 - 18.0 G/DL) 8.4 L 8.6 L Hct (42 - 52 %) 26.0 L 26.3 L MCV (80.0 - 94.0 FL) 80.1 80.9 MCH (27.0 - 31.0 PG) 26.0 L 26.5 L RDW (11.5 - 14.5 %) 17.7 H 18.6 H Plt Count (130 - 400 /CUMM) 258 205 MPV (7.4 - 10.4 FL) 7.7 7.6 Gran % (42.2 - 75.2 %) 95.7 H 94.7 H Lymphocytes % (20.5 - 51.1 %) 2.8 L 3.4 L Monocytes % (1.7 - 9.3 %) 1.5 L 1.6 L Eosinophils % (0 - 5 %) 0 0.3 Basophils % (0.0 - 2.0 %) 0 L 0 L Absolute Granulocytes (1.4 - 6.5 /CUMM) 11.6 H 13.8 H Segmented Neutrophils (42.2 - 75.2 %) 99 H Absolute Lymphocytes (1.2 - 3.4 /CUMM) 0.3 L 0.5 L Lymphocytes (20.5 - 51.1 %) 1 L Absolute Monocytes (0.10 - 0.60 /CUMM) 0.2 0.2 Absolute Eosinophils (0.0 - 0.7 /CUMM) 0 0 Absolute Basophils (0.0 - 0.2 /CUMM) 0 0 Platelet Estimate (ADEQUATE) VERIFIED BY SMEAR ADEQUATE Polychromasia 1+ 1+ Hypochromic-Microcytic 1+ Poikilocytosis 1+ 2+ Anisocytosis 1+ Ovalocytes 1+ 1+ Stomatocytes 1+ PUBS MCHC (33.0 - 37.0 G/DL) 32.4 L 32.8 L Other Body Source Fld Total RBCs Counted (%) 100 08/30 08/30 0150 0143 Blood Gas pH (7.35 - 7.45 PH) 7.49 H pCO2 (35 - 45 TORR) 30 L pO2 (80 - 100 TORR) 59 L HCO3 (21 - 28 MEQ/L) 22 ABG O2 Sat (Measured) (>96.0 %) 90.0 L P-50 (Temp Corrected) Y Carboxyhemoglobin (1.5 - 5.0 %) 0.5 L O2 Concentration % 55% Temperature (97.0 - 100.0 FARH) 98.8 O2 Delivery Method V/M Chemistry Troponin I Cancelled Miscellaneous Phlebotomy Draw Site RIGHT RADIAL
--- NOTE | 2016-08-31 11:27 | PN- Cardiology ---
Subjective Subjective: The patient states that he had an episode of shortness of breath at night when he got up to urinate again. However is feeling better now. He remains in atrial fibrillation. Cardioversion was attempted and he did transiently convert to sinus rhythm after a shock of 360 J, however he reverted to atrial fibrillation within a few minutes thereafter. Objective Vital Signs and I&Os Vital Signs Date Time Temp Pulse Resp B/P B/P Pulse O2 O2 Flow FiO2 Mean Ox Delivery Rate 08/31 0653 97.9 95 16 144/60 93 Nasal Cannula 08/30 2155 98.1 124 16 150/62 94 Nasal 2.0L Cannula 08/30 215 94 Nasal 2.0L Cannula 08/30 1600 96 Nasal 4.0L Cannula 08/30 1515 97.5 97 20 122/66 96 Nasal 3.0L Cannula Intake & Output 08/31 1600 08/31 0800 08/31 0000 08/30 1600 08/30 0800 08/30 0000 Intake Total 220 480 200 Output Total 350 975 500 Balance -130 -495 -300 Intake, Oral 220 480 200 Output, Urine 350 975 500 Physical Exam: He is in no distress HEENT exam is normal Lungs mostly clear today with minimal wheezing Heart irregular rhythm no murmurs Extremities no edema Current Medications: Current Medications Sig/Clare Start time Last Medication Dose Route Stop Time Status Admin Acetaminophen 650 MG Q6P PRN 08/29 0930 AC PO Allopurinol 300 MG DAILY 08/29 1000 AC 08/30 PO 1052 Amiodarone HCl 200 MG DAILY 08/29 1000 AC 08/30 PO 1052 Budesonide/ 2 PUF BID 08/29 1000 AC 08/30 Formoterol Fumarate INH 2138 Diltiazem HCl 120 MG DAILY 08/29 1004 AC 08/30 PO 1050 Furosemide 60 MG 7:30 AM, & 4:30 PM 08/30 1630 AC 08/31 IV 0828 Furosemide 40 MG 7:30 AM, & 4:30 PM 08/30 0730 DC 08/30 IV 0836 Insulin Aspart 0 TIDAC/HS 08/29 1200 DC 08/30 SC 2138 Insulin Human Regular 0 Q6 08/31 0819 AC 08/31 SC 0829 Lactobacillus 1 CAP BID 08/29 1000 AC 08/30 Acidophilus PO 2138 Magnesium Oxide 400 MG DAILY 08/29 1000 AC 08/30 PO 1050 Methylprednisolone 40 MG DAILY 08/31 1000 AC IV Methylprednisolone 80 MG DAILY 08/30 1000 DC 08/30 IV 1102 Oxycodone HCl 5 MG Q6PRN PRN 08/29 0930 AC PO Patient Medication 1 ED .STK-MED ONE 08/30 1412 [place] Teaching ED 08/30 1413 Pravastatin Sodium 80 MG DAILY 08/29 1000 AC 08/30 PO 1051 Rivaroxaban 15 MG DAILY 08/29 1000 AC 08/30 PO 1053 Tamsulosin HCl 0.4 MG DAILY 08/29 1000 AC 08/30 PO 1059 Tiotropium [place] 1 PUF DAILY 08/29 1000 AC 08/30 INH 1054 Tramadol HCl 50 MG Q6P PRN 08/29 0930 AC PO Results Last 48 Hrs of Labs/Mics: Laboratory Tests 08/31/16 0800: Anion Gap 12, Estimated GFR 37 L, BUN/Creatinine Ratio 29.4 H, CBC w Diff MAN DIFF ORDERED, RBC 3.24 L, MCV 80.1, MCH 26.0 L, RDW 17.7 H, MPV 7.7, Gran % 95.7 H, Lymphocytes % 2.8 L, Monocytes % 1.5 L, Eosinophils % 0, Basophils % 0 L, Absolute Granulocytes 11.6 H, Absolute Lymphocytes 0.3 L, Absolute Monocytes 0.2, Absolute Eosinophils 0, Absolute Basophils 0, Platelet Estimate VERIFIED BY SMEAR, Polychromasia 1+, Poikilocytosis 1+, Anisocytosis 1+, Ovalocytes 1+, PUBS MCHC 32.4 L 08/30/16 0200: Anion Gap 14, Estimated GFR 39 L, BUN/Creatinine Ratio 20.0, Troponin I 0.05, CBC w Diff MAN DIFF ORDERED, RBC 3.25 L, MCV 80.9, MCH 26.5 L, RDW 18.6 H, MPV 7.6, Gran % 94.7 H, Lymphocytes % 3.4 L, Monocytes % 1.6 L, Eosinophils % 0.3, Basophils % 0 L, Absolute Granulocytes 13.8 H, Segmented Neutrophils 99 H, Absolute Lymphocytes 0.5 L, Lymphocytes 1 L, Absolute Monocytes 0.2, Absolute Eosinophils 0, Absolute Basophils 0, Platelet Estimate ADEQUATE, Polychromasia 1+, Hypochromic-Microcytic 1+, Poikilocytosis 2+, Ovalocytes 1+, Stomatocytes 1+, PUBS MCHC 32.8 L, Fld Total RBCs Counted 100 08/30/16 0150: pH 7.49 H, pCO2 30 L, pO2 59 L, HCO3 22, ABG O2 Sat (Measured) 90.0 L, P-50 (Temp Corrected) Y, Carboxyhemoglobin 0.5 L, O2 Concentration % 55%, Temperature 98.8, O2 Delivery Method V/M, Phlebotomy Draw Site RIGHT RADIAL 08/30/16 0143: Troponin I Cancelled Assessment/Plan Assessment/Plan Rob remains in atrial fibrillation, although he transiently converted to sinus rhythm with cardioversion. However, this did not hold. His rate is borderline fast and I think he would benefit from a higher dose of Cardizem. I recommend giving him 120 mg twice daily. I would continue IV Lasix for now. I would recommend increasing amiodarone to 200 mg. TID for a couple of weeks and considering another cardioversion at that time. I would repeat a chest x-ray tomorrow. Continue telemetry? Yes I recommend continuing IV Lasix. I'm going to plan to try and cardiovert him tomorrow assuming he remains in atrial fibrillation.
[2016-08-31 12:30] VITALS: BP 122/70
--- NOTE | 2016-08-31 13:16 | CT SCAN REPORT ---
EXAMINATION: CT CHEST WITHOUT CONTRAST CLINICAL INFORMATION: Shortness of breath. COMPARISON: Prior chest CT from 11/29/2015. Recent chest radiograph, including 08/30/2016. TECHNIQUE: Multidetector volumetric CT imaging of the chest was done. Axial MIP volume rendering provided. Sagittal and coronal reformatted images were obtained. DLP: 391 mGy-cm FINDINGS: LUNGS AND PLEURA: Moderate centrilobular emphysema. Secretions along the posterior wall of the trachea. Bronchial perez are chronically thickened in both lungs, suggestive of bronchitis, and there are scattered endobronchial secretions. Also, there are subtle ground glass opacities in both lungs, most conspicuous within the inferior lingula and lower lobes. Small bilateral pleural effusions (right larger than left) with compressive atelectasis in lower lobes. 0.4 cm subpleural opacity in the right upper lobe observed on transaxial images has a thin, linear configuration on coronal reformatted images, suggestive of focal atelectasis or scar (image 258, series 4). There is a 0.2 cm nodule in the left lower lobe (image 285, series 4). No suspicious nodule or mass. MEDIASTINUM: Cardiomegaly and three-vessel coronary artery atherosclerotic calcification. There is a left prepectoral cardiac pulse generator with leads extending to the right atrial appendage and to both ventricles. Pulmonary arteries are normal in caliber. There is atherosclerotic calcification of the thoracic aorta. The ascending aorta and aortic arch are normal in caliber. The descending aorta is ectatic and measures up to 3.3 cm short axis dimension. There is an old small aneurysmal outpouching of the left posterolateral wall of the descending aorta (image 283, series 4). LYMPHATICS: No axillary lymphadenopathy. Several lymph nodes are seen in the mediastinum, and the largest are 1.1 cm short axis dimension precarinal and subcarinal lymph nodes. UPPER ABDOMEN: Atherosclerotic calcification of visualized abdominal aorta, splenic and renal arteries. Chronic severe cortical atrophy of the partially visualized left kidney. There is an old 1.7 x 2.2 cm peripelvic cyst of the mid left kidney. No suspicious findings in the visualized solid or hollow viscera of the upper abdomen. OSSEOUS STRUCTURES: There is skeletal hyperostosis with bulky, flowing anterior ligament ossification of the degenerated thoracic spine. No aggressive osseous lesions. IMPRESSION: 1. Moderate pulmonary emphysema and chronic bronchial wall thickening (likely chronic bronchitis) in both lungs. 2. Chest CT imaging findings, combined with a review of recent chest radiographs, suggests significant improvement in previously noted interstitial pulmonary edema. There is some residual subtle groundglass opacity in lower lung zones and small pleural effusions (right larger than left) associated with compressive atelectasis in the bases. No overt pneumonia. 3. Cardiomegaly and atherosclerotic disease of coronary arteries with right atrial and biventricular pacemaker in place. 4. Mild mediastinal lymphadenopathy, likely reactive in nature. 5. Atherosclerotic disease of the thoracic aorta and stable appearance of a focal aneurysmal outpouching of the left posterolateral wall of the descending thoracic aorta (image 283, series 4).
[2016-08-31 14:22] VITALS: BP 112/70
--- NOTE | 2016-08-31 14:28 | PN- Pulmonary ---
Subjective HPI/Critical Care Issues: The patient states that he had an episode of shortness of breath at night when he got up to urinate again. However is feeling better now. He remains in atrial fibrillation. Cardioversion was attempted and he did transiently convert to sinus rhythm after shock of 360 J, however he reverted to atrial fibrillation within a few minutes thereafter. Objective Current Medications: Current Medications Sig/Clare Start time Last Medication Dose Route Stop Time Status Admin Acetaminophen 650 MG Q6P PRN 08/29 0930 AC PO Allopurinol 300 MG DAILY 08/29 1000 AC 08/31 PO 1239 Amiodarone HCl 200 MG DAILY 08/29 1000 AC 08/31 PO 1240 Budesonide/ 2 PUF BID 08/29 1000 AC 08/31 Formoterol Fumarate INH 1242 Diltiazem HCl 120 MG BID 08/31 2200 AC PO Diltiazem HCl 120 MG DAILY 08/29 1004 DC 08/31 PO 1243 Furosemide 60 MG 7:30 AM, & 4:30 PM 08/30 1630 AC 08/31 IV 0828 Furosemide 40 MG 7:30 AM, & 4:30 PM 08/30 0730 DC 08/30 IV 0836 Insulin Aspart 0 TIDAC/HS 08/29 1200 DC 08/30 SC 2138 Insulin Human Regular 0 Q6 08/31 0819 AC 08/31 SC 1238 Lactobacillus 1 CAP BID 08/29 1000 AC 08/31 Acidophilus PO 1240 Magnesium Oxide 400 MG DAILY 08/29 1000 AC 08/31 PO 1240 Methylprednisolone 40 MG DAILY 08/31 1000 AC 08/31 IV 1241 Methylprednisolone 80 MG DAILY 08/30 1000 DC 08/30 IV 1102 Oxycodone HCl 5 MG Q6PRN PRN 08/29 0930 AC PO Pravastatin Sodium 80 MG DAILY 08/29 1000 AC 08/31 PO 1239 Rivaroxaban 15 MG DAILY 08/29 1000 AC 08/31 PO 1239 Tamsulosin HCl 0.4 MG DAILY 08/29 1000 AC 08/31 PO 1241 Tiotropium [place] 1 PUF DAILY 08/29 1000 AC 08/31 INH 1241 Tramadol HCl 50 MG Q6P PRN 08/29 0930 AC PO Vital Signs & I&O Last 24 Hrs of Vitals and I&O: Vital Signs Date Time Temp Pulse Resp B/P B/P Pulse O2 O2 Flow FiO2 Mean Ox Delivery Rate 08/31 1241 97.9 122/70 08/31 1240 98 122/70 08/31 1230 98 20 122/70 96 Nasal 2.0L Cannula 08/31 0800 98 Nasal 55% Cannula 08/31 0653 97.9 95 16 144/60 93 Nasal Cannula 08/30 2155 98.1 124 16 150/62 94 Nasal 2.0L Cannula 08/30 2153 94 Nasal 2.0L Cannula 08/30 1600 96 Nasal 4.0L Cannula 08/30 1515 97.5 97 20 122/66 96 Nasal 3.0L Cannula Intake & Output 08/31 1600 08/31 0800 08/31 0000 Intake Total 220 Output Total 350 Balance -130 Intake, Oral 220 Output, Urine 350 Impression/Plan Impression/Plan Impression/Plan: Physical Exam General Appearance Alert, Oriented X3 Skin No Rashes, No Breakdown Neck Supple, No JVD Cardiovascular irregularly irregular rate and rhythm Lungs bilateral inspiratory wheeze on exam Abdomen Normal Bowel Sounds, Soft Neurological Normal Gait, Normal Speech Extremities 2 + pitting edema in lower extremities CT CHEST REVIEWED FROM 08/31 MPRESSION: 1. Moderate pulmonary emphysema and chronic bronchial wall thickening (likely chronic bronchitis) in both lungs. 2. Chest CT imaging findings, combined with a review of recent chest radiographs, suggests significant improvement in previously noted interstitial pulmonary edema. There is some residual subtle groundglass opacity in lower lung zones and small pleural effusions (right larger than left) associated with compressive atelectasis in the bases. No overt pneumonia. 3. Cardiomegaly and atherosclerotic disease of coronary arteries with right atrial and biventricular pacemaker in place. 4. Mild mediastinal lymphadenopathy, likely reactive in nature. 5. Atherosclerotic disease of the thoracic aorta and stable appearance of a focal aneurysmal outpouching of the left posterolateral wall of the descending thoracic aorta (image 283, series 4). IMPRESSION This is a gentleman with paroxysmal atrial fibrillation on xeralto, significant COPD, biventricular pacer for a previous wide-complex rhythm, previous coronary artery disease, significant pulmonary hypertension, mitral regurgitation, diabetes, previous gout and osteoarthritis, currently on 24-hour oxygen with 40- pack-year smoking history who has quit smoking few yrs ago now here * Significant hypoxemia with clinical evidence suggestive of acute pulmonary edema with rapid atrial fibrillation with acute diastolic heart failure with recent intubation from acute diastolic heart failure. * No clinical evidence suggestive of active bacterial infection in the lung and patient recently did have significant C. difficile colitis * Significant COPD with exacerbation compounded by chf * Recent Cdiff colitis now status post antibiotic therapy no diarrhea * Recent bilateral epistaxis with nasal packing, was on abx for this, now better. PT continues to have sig anemia * Sig COPD with a right middle lobe bronchiectasis from his previous pneumonia with MRSA colonization. He also has been wheezing consistent with cardiac asthma with COPD exacerbation related to fluid overload * Paroxysmal atrial fibrillation with anticoagulation before, on amiodarone with biventricular pacer. Pt failed electrical cardioversion on 08/31 * Recent bronchiolitis with Previous small lung nodules * Chronic kidney disease with atrophic kidney. * Hypertension, gout, previous high blood sugar, previous gout. * Mild aortic aneurysm * BPH on Flomax RECOMMENDATION [id number] nebulizer Intravenous Lasix may be backed off as his bun is rising Cardio following with plan for cardioversion Discontinue antibiotics High flow if worse Watch for worsening diarrhea Strict sugar control Increase cardizem REduce steroids to 40 Prognosis guarded as he has end-stage COPD and recurrent heart failure
--- NOTE | 2016-08-31 18:32 | PN- Housestaff ---
Subjective Follow-up For: Acute hypoxic respiratory failure due to pulmonary edema copd exacerbation History of paroxysmal atrial fibrillation on Xarelto History of coronary artery disease status post multiple stents Complaints: SOB Subjective: patient is sitting in bed on nasal oxygen, anxious and short of breath Review of Systems Constitutional: Reports: malaise, weakness. Cardiovascular: Reports: edema. Respiratory: Reports: cough, short of breath, sputum production. Gastrointestinal: Denies: no symptoms. Neurological/Psychological: Denies: no symptoms. Objective Last 24 Hrs of Vital Signs/I&O Vital Signs Date Time Temp Pulse Resp B/P B/P Pulse O2 O2 Flow FiO2 Mean Ox Delivery Rate 08/31 2103 96 Nasal 2.0L Cannula 08/31 1600 Nasal 2.0L Cannula 08/31 1520 Nasal 1.5L Cannula 08/31 1422 97.5 97 18 112/70 97 Nasal Cannula 08/31 1241 97.9 122/70 08/31 1240 98 122/70 08/31 1230 98 20 122/70 96 Nasal 2.0L Cannula 08/31 0800 98 Nasal 55% Cannula 08/31 0653 97.9 95 16 144/60 93 Nasal Cannula Intake & Output 08/31 1600 08/31 0800 08/31 0000 Intake Total 360 220 Output Total 100 350 Balance 260 -130 Intake, Oral 360 220 Output, Urine 100 350 Physical Exam General Appearance: Alert, Oriented X3, Cooperative, No Acute Distress Skin: No Rashes, No Breakdown, No Significant Lesion HEENT: Atraumatic, PERRLA, EOMI, Mucous Membr. moist/pink Neck: Supple, No JVD Cardiovascular: Normal S1, Normal S2, No Murmurs, irregular irregular Lungs: bilateral crepitations Abdomen: Normal Bowel Sounds, Soft, No Tenderness Extremities: 2+ pitting edema Vascular: Normal Pulses Orders Radiology Findings: chest CT: 1. Moderate pulmonary emphysema and chronic bronchial wall thickening (likely chronic bronchitis) in both lungs. 2. Chest CT imaging findings, combined with a review of recent chest radiographs, suggests significant improvement in previously noted interstitial pulmonary edema. There is some residual subtle groundglass opacity in lower lung zones and small pleural effusions (right larger than left) associated with compressive atelectasis in the bases. No overt pneumonia. 3. Cardiomegaly and atherosclerotic disease of coronary arteries with right atrial and biventricular pacemaker in place. 4. Mild mediastinal lymphadenopathy, likely reactive in nature. 5. Atherosclerotic disease of the thoracic aorta and stable appearance of a focal aneurysmal outpouching of the left posterolateral wall of the descending thoracic aorta Assessment/Plan Assessment: 76-year-old gentleman with a past mental history significant for recurrent nosebleeds/epistaxis status post cauterization, atrial fibrillation on Xarelto, coronary artery disease (history of multiple stents), cardiomyopathy status post pacemaker/defibrillator, COPD(on 1 L of oxygen at bedtime), history of MRSA pneumonia June 2016, recently admitted to [facility] due to epistaxis and C. difficile colitis presented to the ED for further evaluation of worsening shortness of breath and cough. # Acute hypoxic respiratory failure: -Due to pulmoanry edema 2/2 rapid a fib vs COPD exacerbation (WBC: 14.6 most likely due to steroid use) -continue toMonitor on telemetry floor -DC Lasix due to increasing BUN -continue Solu-Medrol [address] Shell -Follow-up blood cultures and sputum cultures -TRC evaluation ,Nebulizer - CT chest without iv contrast tomorrow. #History of paroxysmal atrial fibrillation -currently stable -Cardioversion was done today but the patient did not sustain NSR -Start cardizem 120 mg BID. -Continue IV Lasix -Increase Amiodarone to 200 mg TID as per Dr. Ramirez recommendation _might need another cardioversion after few weeks #History of coronary artery disease status post stents: -Echo done in June 2016:Normal size left ventricle. Mild to moderate concentric left ventricular hypertrophy. Left ventricular systolic function is mildly decreased with estimated ejection fraction 55-60%. There is mild postero- lateral hypokinesis seen -Continue aspirin and statins # History of chronic kidney disease(stage IIIB) -Monitor BEP cr today is 1.8 -Avoid any nephrotoxic agents. -f/u bep #Bilateral low extremity Edema: was given lasix iv once will continue Lasix 80 mg po daily as per Dr ramirez # History of chronic normocytic anemia: currently stable hgb: 8.4 follow up his CBC tomorrow\ iron studies #insulin-dependent diabetes mellitus: -Novolog sliding scale -Carbohydrate consistent diet #History of gout * Continue home dose of allopurinol DVT prophylaxis: mechanical code: full code diet: chf and consistent carbohydrate Problem List: 1. Atrial fibrillation with rapid ventricular response 2. Gout 3. IDDM (insulin dependent diabetes mellitus) 4. Cardiomyopathy 5. Acute exacerbation of chronic obstructive pulmonary disease 6. CKD (chronic kidney disease) 7. Acute diastolic CHF (congestive heart failure) Pain Ratin Pain Location: n/a Pain Goal: Remain pain free Pain Plan: tylenol oxycodone Tomorrow's Labs & Rationales: bep cbc DVT/Prophylaxis: mechanical
[2016-08-31 23:29] VITALS: BP 140/70
[2016-09-01 06:51] VITALS: BP 130/74
[2016-09-01 08:39] LABS: ABSOLUTE BASOPHIL COUNT 0 /CUMM (0.0-0.2); ABSOLUTE EOSINOPHIL COUNT 0 /CUMM (0.0-0.7); ABSOLUTE GRANULOCYTE CT 10.4 /CUMM (1.4-6.5); ABSOLUTE LYMPH COUNT 0.3 /CUMM (1.2-3.4); ABSOLUTE MONOCYTE COUNT 0.3 /CUMM (0.10-0.60); BASOPHIL % 0 % (0.0-2.0); EOSINOPHIL % 0.1 % (0-5); MEAN CORPUSCULAR HGB 26.1 PG (27.0-31.0); MEAN CORPUSCULAR HGB CONC 32.5 G/DL (33.0-37.0); MEAN CORPUSCULAR VOLUME 80.6 FL (80.0-94.0); MEAN PLATELET VOLUME 7.5 FL (7.4-10.4); PLATELET COUNT 280 /CUMM (130-400); RBC DISTRIBUTION WIDTH 18.1 % (11.5-14.5); RED BLOOD CELL CT 2.97 /CUMM (4.70-6.10)
--- NOTE | 2016-09-01 11:06 | Cons- Endocrinology ---
General Information and HPI Consulting Request Date of Consult: 09/01/16 Requested By: medical team Reason for Consult: uncontrolled diabetes Source of Information: patient, old records Exam Limitations: no limitations History of Present Illness: This 76-year-old male with a known history of COPD and paroxysmal atrial fibrillation was brought to the emergency room by ambulance because he couldn't breath. He was having extreme shortness of breath. He was found to be in congestive heart failure. He has known coronary artery disease status post multiple stents and a cardiomyopathy. He also has an AICD device. He uses 1 L of oxygen at night at home. He was treated for MRSA pneumonia in June 2016. Patient also has chronic renal insufficiency. Since coming to the hospital the patient has been diuresed with improvement. He is also on methylprednisolone 40 mg intravenously once a day in the morning at 10 AM. His blood sugars have been running high. Review of his blood sugars yesterday show they were 335 in the morning before breakfast 213 before lunch, 286 at bedtime,. This morning his blood sugar was 237. Allergies/Medications Allergies: Coded Allergies: NO KNOWN ALLERGIES (UNKNOWN 08/10/16) Home Med List: Albuterol Sulfate 2.5 MG/3 ML (0.083 %) VIAL.NEB 1 Vial INH/ASHLEY TID PRN wheezing Albuterol Sulfate (Ventolin Hfa) 18 GM HFA.AER.AD 2 PUF INH Q6P PRN SHORTNESS OF BREATH Allopurinol 300 MG TABLET 1 TAB PO DAILY GOUT (Reported) Amiodarone HCl 200 MG TABLET 1 TAB PO DAILY AFIB (Reported) Diltiazem HCl (Cardizem Cd) 120 MG CAP.ER.24H 120 MG PO DAILY Afib Fluticasone/Vilanterol (Breo Ellipta 100-25 Mcg INH) 100 MCG-25 MCG/DOSE BLST.W.DEV 1 PUFF INH DAILY BREATHING PROBLEMS (Reported) Furosemide (Lasix) 40 MG TABLET 2 TAB PO DAILY fluid overload Insulin Aspart, Recombinant (Novolog Flexpen) 100 UNIT/ML INSULN.PEN 1 UNITS SC AD DM DIRECTED Lactobac Cmb #3/Fos/Pantethine (Probiotic & Acidophilus Cap) 300MM-250 CAPSULE 1 CAP PO BID DIARRHEA Magnesium Oxide 400 MG TABLET 1 TAB PO DAILY SUPPLEMENT (Reported) Multivit-Min/FA/Lycopen/Lutein (Centrum Silver Tablet) 0.4 MG-300 MCG-250 MCG TABLET 1 TAB PO DAILY VITAMIN SUPPORT (Reported) Pravastatin Sodium 80 MG TABLET 1 TAB PO DAILY HLD (Reported) Prednisone 5 MG TABLET 1 TAB PO DAILY GOUT (Reported) Rivaroxaban (Xarelto) 15 MG TABLET 1 TAB PO DAILY Afib (Reported) Tamsulosin HCl (Flomax) 0.4 MG CAP.ER.24H 1 CAP PO DAILY PROSTATE (Reported) Tiotropium [place] (Spiriva) 18 MCG CAP.W.DEV 1 CAP INH DAILY COPD (Reported) Tramadol HCl 50 MG TABLET 1 TAB PO Q12P PRN headcahe and nasal congestion Vitamin B Complex (B Complex) 1 EACH TABLET 1 TAB PO DAILY VITAMIN SUPPORT ( Reported) Review of Systems Review of Systems Constitutional: Denies: chills, fever. Cardiovascular: Denies: chest pain. Respiratory: Reports: short of breath. GI: Denies: abdominal pain, nausea, vomiting. Skin: Reports: no symptoms. Past History Travel History Traveled to [place] past 21 day No Medical History Blood Transfusion Hx: Yes Neurological: NONE EENT: epistaxis, HEARING LOSS Cardiovascular: AFIB, CHF, hypertension, hyperlipidemia, STENTS x 5 LCW PACER/ DEBRILLATOR Respiratory: COPD, pneumonia Gastrointestinal: NONE Hepatic: NONE Renal: NONE Musculoskeletal: gout, osteoarthritis Psychiatric: NONE Endocrine: diabetes Blood Disorders: NONE Cancer(s): NONE BAROMETERS CALIBRATOR/Reproductive: 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 Relation not specified for: Fam hx-ischem heart disease Fam hx-ischem heart disease Psychosocial History Where Do You Live? Home Who Do You Live With? spouse Services at Home: None Primary Language: French Smoking Status: Former Smoker ETOH Use: denies use Illicit Drug Use: denies illicit drug use Functional Ability ADLs Independent: dressing, eating, toileting, bathing. Ambulation: independent IADLs Independent: shopping, housework, finances, food prep, telephone, transportation , medication admin. Exam & Diagnostic Data Last 24 Hrs of Vital Signs/I&O Vital Signs Date Time Temp Pulse Resp B/P B/P Pulse O2 O2 Flow FiO2 Mean Ox Delivery Rate 09/01 1023 96 Nasal 1.5L Cannula 09/01 0651 97.4 91 20 130/74 97 Nasal 2.5L Cannula 09/01 0000 94 Nasal 2.0L Cannula 08/31 2329 97.5 106 20 140/70 92 Nasal 2.5L Cannula 08/31 2103 96 Nasal 2.0L Cannula 08/31 1600 Nasal 2.0L Cannula 08/31 1520 Nasal 1.5L Cannula 08/31 1422 97.5 97 18 112/70 97 Nasal Cannula 08/31 1241 97.9 122/70 08/31 1240 98 122/70 08/31 1230 98 20 122/70 96 Nasal 2.0L Cannula Intake & Output 09/01 0800 09/01 0000 Intake Total 0 240 Output Total 800 350 Balance -800 -110 Intake, Oral 0 240 Output, Urine 800 350 Vital Signs Date Time Temp Pulse Resp B/P B/P Pulse O2 O2 Flow FiO2 Mean Ox Delivery Rate 09/01 1023 96 Nasal 1.5L Cannula 09/01 0651 97.4 91 20 130/74 97 Nasal 2.5L Cannula 09/01 0000 94 Nasal 2.0L Cannula 08/319 97.5 106 20 140/70 92 Nasal 2.5L Cannula 08/31 2102 96 Nasal 2.0L Cannula 08/31 1600 Nasal 2.0L Cannula 08/31 1520 Nasal 1.5L Cannula 08/31 1422 97.5 97 18 112/70 97 Nasal Cannula 08/31 1241 97.9 122/70 08/31 1240 98 122/70 08/31 1230 98 20 122/70 96 Nasal 2.0L Cannula Intake & Output 09/01 1600 09/01 0800 09/01 0000 Intake Total 0 240 Output Total 800 350 Balance -800 -110 Intake, Oral 0 240 Output, Urine 800 350 Physical Exam General Appearance: well developed/nourished, no apparent distress, alert, awake Head: normal appearance Neck: normal inspection Respiratory: decreased breath sounds Cardiovascular: regular rate/rhythm Gastrointestinal: normal bowel sounds Back: normal inspection Extremities: normal inspection Skin: intact Labs/[place] Results: Laboratory Tests 09/01 0700 Chemistry Sodium (137 - 145 mmol/L) 135 L Potassium (3.5 - 5.1 mmol/L) 3.8 Chloride (98 - 107 mmol/L) 98 Carbon Dioxide (22 - 30 mmol/L) 25 Anion Gap (5 - 16) 12 BUN (9 - 20 mg/dL) 63 H Creatinine (0.7 - 1.2 mg/dL) 2.0 H Estimated GFR (>60 ml/min) 33 L BUN/Creatinine Ratio (7 - 25 %) 31.5 H Hematology CBC w Diff NO MAN DIFF REQ WBC (4.8 - 10.8 /CUMM) 11.0 H RBC (4.70 - 6.10 /CUMM) 2.97 L Hgb (14.0 - 18.0 G/DL) 7.8 L Hct (42 - 52 %) 24.0 L MCV (80.0 - 94.0 FL) 80.6 MCH (27.0 - 31.0 PG) 26.1 L RDW (11.5 - 14.5 %) 18.1 H Plt Count (130 - 400 /CUMM) 280 MPV (7.4 - 10.4 FL) 7.5 Gran % (42.2 - 75.2 %) 94.6 H Lymphocytes % (20.5 - 51.1 %) 2.6 L Monocytes % (1.7 - 9.3 %) 2.7 Eosinophils % (0 - 5 %) 0.1 Basophils % (0.0 - 2.0 %) 0 L Absolute Granulocytes (1.4 - 6.5 /CUMM) 10.4 H Absolute Lymphocytes (1.2 - 3.4 /CUMM) 0.3 L Absolute Monocytes (0.10 - 0.60 /CUMM) 0.3 Absolute Eosinophils (0.0 - 0.7 /CUMM) 0 Absolute Basophils (0.0 - 0.2 /CUMM) 0 PUBS MCHC (33.0 - 37.0 G/DL) 32.5 L Assessment/Plan Assessment/Plan This patient has type 2 diabetes mellitus being aggravated by his acute illness and also the steroid therapy which is a single dose of methylprednisolone 40 mg intravenously at 10 AM daily. The patient states he is eating well. The patient's blood sugars have been out of control. We should place him on a basal bolus regimen. Suggest begin Levemir 6 units twice a day. We also need to place him on NovoLog sliding scale before meals. NovoLog sliding scale before meals should be 80-150 give 4 units NovoLog, 151- 200 give 6 units NovoLog, 201-250 give 8 units NovoLog, 251-300 give 10 units NovoLog, 301-350 give 11 units NovoLog, 351-400 give 12 units NovoLog. A separate bedtime sliding-scale NovoLog should be written. Bedtime sliding- scale should be less than 250 give no insulin, 251-300 give 2 units NovoLog, 301 -350 give 3 units NovoLog, 351-400 give 4 units NovoLog. Since the patient is on a high dose of amiodarone we should check the patient's thyroid tests including a free T4 and TSH level. Consult Acknowledgment - Thank you for your consult request.
[2016-09-01 11:09] LABS: GRANULOCYTE % 94.6 % (42.2-75.2)
--- NOTE | 2016-09-01 11:09 | PN- Att Addend ---
Attending Addendum Attending Brief Note Patient is morning reports improved symptoms. General Appearance: Alert, No Acute Distress Skin: Grossly normal HEENT: PEERLA Neck: Supple, No JVD Cardiovascular: Irregular rhythm Lungs: Decreased air entry Abdomen: Normal Bowel Sounds, Soft, No Tenderness Neurological: Normal Speech, Strength at 5/5 X4 Ext, Cranial Nerves 3-12 NL, Reflexes 2+ Extremities: Pedal edema Assessment Improved breathing status currently on 1.5 L of oxygen. He is currently on IV Solu-Medrol. Worsening kidney function likely secondary to IV diuresis. At this point Lasix is on hold. Unfortunately patient failed DC cardioversion yesterday. Plan for repeat cardioversion in a few weeks. Plan Hold diuretics Encourage by mouth fluids Check labs in a.m. A. fib management as per cardiology Continue IV Solu-Medrol, TRC and nebs Continue other home medications Current Medications Sig/Clare Start time Last Medication Dose Route Stop Time Status Admin Acetaminophen 650 MG Q6P PRN 08/29 0930 AC PO Albuterol Sulfate 3 ML BID 08/31 2200 AC 09/01 INH 1021 Allopurinol 300 MG DAILY 08/29 1000 AC 08/31 PO 1239 Amiodarone HCl 200 MG TID 09/01 1000 AC PO Amiodarone HCl 200 MG DAILY 08/29 1000 DC 08/31 PO 1240 Budesonide/ 2 PUF BID 08/29 1000 AC 08/31 Formoterol Fumarate INH 2234 Diltiazem HCl 120 MG BID 08/31 2200 AC 08/31 PO 2233 Diltiazem HCl 120 MG DAILY 08/29 1004 DC 08/31 PO 1243 Furosemide 60 MG 7:30 AM, & 4:30 PM 08/30 1630 DC 08/31 IV 0828 Insulin Aspart 0 TIDAC 08/31 1700 DC 08/31 SC 08/31 1900 1727 Insulin Human Regular 12 UNITS ONCE ONE 09/01 1230 CAN SC 09/01 1231 Insulin Human Regular 6 UNITS ONCE ONE 09/01 0130 DC 09/01 SC 09/01 0131 0153 Insulin Human Regular 0 Q6 08/31 2359 AC 09/01 SC 0649 Insulin Human Regular 0 Q6 08/31 0819 DC 08/31 SC 1238 Lactobacillus 1 CAP BID 08/29 1000 AC 08/31 Acidophilus PO 2233 Magnesium Oxide 400 MG DAILY 08/29 1000 AC 08/31 PO 1240 Methylprednisolone 40 MG DAILY 08/31 1000 AC 08/31 IV 1241 Oxycodone HCl 5 MG Q6PRN PRN 08/29 0930 AC PO Pravastatin Sodium 80 MG DAILY 08/29 1000 AC 08/31 PO 1239 Rivaroxaban 15 MG DAILY 08/29 1000 AC 08/31 PO 1239 Tamsulosin HCl 0.4 MG DAILY 08/29 1000 AC 08/31 PO 1241 Tiotropium [place] 1 PUF DAILY 08/29 1000 AC 08/31 INH 1241 Tramadol HCl 50 MG Q6P PRN 08/29 0930 AC PO Laboratory Tests 09/01 07 Chemistry Sodium (137 - 145 mmol/L) 135 L Potassium (3.5 - 5.1 mmol/L) 3.8 Chloride (98 - 107 mmol/L) 98 Carbon Dioxide (22 - 30 mmol/L) 25 Anion Gap (5 - 16) 12 BUN (9 - 20 mg/dL) 63 H Creatinine (0.7 - 1.2 mg/dL) 2.0 H Estimated GFR (>60 ml/min) 33 L BUN/Creatinine Ratio (7 - 25 %) 31.5 H Hematology CBC w Diff NO MAN DIFF REQ WBC (4.8 - 10.8 /CUMM) 11.0 H RBC (4.70 - 6.10 /CUMM) 2.97 L Hgb (14.0 - 18.0 G/DL) 7.8 L Hct (42 - 52 %) 24.0 L MCV (80.0 - 94.0 FL) 80.6 MCH (27.0 - 31.0 PG) 26.1 L RDW (11.5 - 14.5 %) 18.1 H Plt Count (130 - 400 /CUMM) 280 MPV (7.4 - 10.4 FL) 7.5 Gran % (42.2 - 75.2 %) 94.6 H Lymphocytes % (20.5 - 51.1 %) 2.6 L Monocytes % (1.7 - 9.3 %) 2.7 Eosinophils % (0 - 5 %) 0.1 Basophils % (0.0 - 2.0 %) 0 L Absolute Granulocytes (1.4 - 6.5 /CUMM) 10.4 H Absolute Lymphocytes (1.2 - 3.4 /CUMM) 0.3 L Absolute Monocytes (0.10 - 0.60 /CUMM) 0.3 Absolute Eosinophils (0.0 - 0.7 /CUMM) 0 Absolute Basophils (0.0 - 0.2 /CUMM) 0 PUBS MCHC (33.0 - 37.0 G/DL) 32.5 L Vital Signs Date Time Temp Pulse Resp B/P B/P Pulse O2 O2 Flow FiO2 Mean Ox Delivery Rate 09/01 1023 96 Nasal 1.5L Cannula 09/01 0651 97.4 91 20 130/74 97 Nasal 2.5L Cannula 09/01 0000 94 Nasal 2.0L Cannula 08/31 2329 97.5 106 20 140/70 92 Nasal 2.5L Cannula 08/31 2103 96 Nasal 2.0L Cannula 08/31 1600 Nasal 2.0L Cannula 08/31 1520 Nasal 1.5L Cannula 08/31 1422 97.5 97 18 112/70 97 Nasal Cannula 08/31 1241 97.9 122/70 08/31 1240 98 122/70 08/31 1230 98 20 122/70 96 Nasal 2.0L Cannula
--- NOTE | 2016-09-01 12:07 | Event Note ---
Event Note Event Note: Patient was supposed receive cardioversion today. However as this is unlikely to be done we will restart diet. Order has been put in for consistent carbohydrate to diet.
--- NOTE | 2016-09-01 12:27 | PN- Pulmonary ---
Subjective HPI/Critical Care Issues: Improved still has dyspnea fatigue cough improving Objective Current Medications: Current Medications Sig/Clare Start time Last Medication Dose Route Stop Time Status Admin Acetaminophen 650 MG Q6P PRN 08/29 0930 AC PO Albuterol Sulfate 3 ML BID 08/31 2200 AC 09/01 INH 1021 Allopurinol 300 MG DAILY 08/29 1000 AC 08/31 PO 1239 Amiodarone HCl 200 MG TID 09/01 1000 AC PO Amiodarone HCl 200 MG DAILY 08/29 1000 DC 08/31 PO 1240 Budesonide/ 2 PUF BID 08/29 1000 AC 08/31 Formoterol Fumarate INH 2234 Diltiazem HCl 120 MG BID 08/31 2200 AC 08/31 PO 2233 Furosemide 60 MG 7:30 AM, & 4:30 PM 08/30 1630 DC 08/31 IV 0828 Insulin Aspart 0 TIDAC 08/31 1700 DC 08/31 SC 08/31 1900 1727 Insulin Human Regular 12 UNITS ONCE ONE 09/01 1230 CAN SC 09/01 1231 Insulin Human Regular 6 UNITS ONCE ONE 09/01 0130 DC 09/01 SC 09/01 0131 0153 Insulin Human Regular 0 Q6 08/31 2359 AC 09/01 SC 0649 Insulin Human Regular 0 Q6 08/31 0819 DC 08/31 SC 1238 Lactobacillus 1 CAP BID 08/29 1000 AC 08/31 Acidophilus PO 2233 Magnesium Oxide 400 MG DAILY 08/29 1000 AC 08/31 PO 1240 Methylprednisolone 40 MG DAILY 08/31 1000 AC 08/31 IV 1241 Oxycodone HCl 5 MG Q6PRN PRN 08/29 0930 AC PO Pravastatin Sodium 80 MG DAILY 08/29 1000 AC 08/31 PO 1239 Rivaroxaban 15 MG DAILY 08/29 1000 AC 08/31 PO 1239 Tamsulosin HCl 0.4 MG DAILY 08/29 1000 AC 08/31 PO 1241 Tiotropium [place] 1 PUF DAILY 08/29 1000 AC 08/31 INH 1241 Tramadol HCl 50 MG Q6P PRN 08/29 0930 AC PO Vital Signs & I&O Last 24 Hrs of Vitals and I&O: Vital Signs Date Time Temp Pulse Resp B/P B/P Pulse O2 O2 Flow FiO2 Mean Ox Delivery Rate 09/01 1023 96 Nasal 1.5L Cannula 09/01 0651 97.4 91 20 130/74 97 Nasal 2.5L Cannula 09/01 0000 94 Nasal 2.0L Cannula 08/31 2329 97.5 106 20 140/70 92 Nasal 2.5L Cannula 08/31 2103 96 Nasal 2.0L Cannula 08/31 1600 Nasal 2.0L Cannula 08/31 1520 Nasal 1.5L Cannula 08/31 1422 97.5 97 18 112/70 97 Nasal Cannula 08/31 1241 97.9 122/70 08/31 1240 98 122/70 08/31 1230 98 20 122/70 96 Nasal 2.0L Cannula Intake & Output 09/01 1600 09/01 0800 09/01 0000 Intake Total 0 240 Output Total 800 350 Balance -800 -110 Intake, Oral 0 240 Output, Urine 800 350 Laboratory Tests 09/01 08/31 0700 0800 Chemistry Sodium (137 - 145 mmol/L) 135 L 134 L Potassium (3.5 - 5.1 mmol/L) 3.8 4.0 Chloride (98 - 107 mmol/L) 98 99 Carbon Dioxide (22 - 30 mmol/L) 25 24 Anion Gap (5 - 16) 12 12 BUN (9 - 20 mg/dL) 63 H 53 H Creatinine (0.7 - 1.2 mg/dL) 2.0 H 1.8 H Estimated GFR (>60 ml/min) 33 L 37 L BUN/Creatinine Ratio (7 - 25 %) 31.5 H 29.4 H Hematology CBC w Diff NO MAN DIFF REQ MAN DIFF ORDERED WBC (4.8 - 10.8 /CUMM) 11.0 H 12.2 H RBC (4.70 - 6.10 /CUMM) 2.97 L 3.24 L Hgb (14.0 - 18.0 G/DL) 7.8 L 8.4 L Hct (42 - 52 %) 24.0 L 26.0 L MCV (80.0 - 94.0 FL) 80.6 80.1 MCH (27.0 - 31.0 PG) 26.1 L 26.0 L RDW (11.5 - 14.5 %) 18.1 H 17.7 H Plt Count (130 - 400 /CUMM) 280 258 MPV (7.4 - 10.4 FL) 7.5 7.7 Gran % (42.2 - 75.2 %) 94.6 H 95.7 H Lymphocytes % (20.5 - 51.1 %) 2.6 L 2.8 L Monocytes % (1.7 - 9.3 %) 2.7 1.5 L Eosinophils % (0 - 5 %) 0.1 0 Basophils % (0.0 - 2.0 %) 0 L 0 L Absolute Granulocytes (1.4 - 6.5 /CUMM) 10.4 H 11.6 H Absolute Lymphocytes (1.2 - 3.4 /CUMM) 0.3 L 0.3 L Absolute Monocytes (0.10 - 0.60 /CUMM) 0.3 0.2 Absolute Eosinophils (0.0 - 0.7 /CUMM) 0 0 Absolute Basophils (0.0 - 0.2 /CUMM) 0 0 Platelet Estimate (ADEQUATE) VERIFIED BY SMEAR Polychromasia 1+ Poikilocytosis 1+ Anisocytosis 1+ Ovalocytes 1+ PUBS MCHC (33.0 - 37.0 G/DL) 32.5 L 32.4 L Impression/Plan Impression/Plan Impression/Plan: Physical Exam General Appearance Alert, Oriented X3 Skin No Rashes, No Breakdown Neck Supple, No JVD Cardiovascular irregularly irregular rate and rhythm Lungs bilateral inspiratory wheeze on exam Abdomen Normal Bowel Sounds, Soft Neurological Normal Gait, Normal Speech Extremities 2 + pitting edema in lower extremities CT CHEST REVIEWED FROM 08/31 MPRESSION: 1. Moderate pulmonary emphysema and chronic bronchial wall thickening (likely chronic bronchitis) in both lungs. 2. Chest CT imaging findings, combined with a review of recent chest radiographs, suggests significant improvement in previously noted interstitial pulmonary edema. There is some residual subtle groundglass opacity in lower lung zones and small pleural effusions (right larger than left) associated with compressive atelectasis in the bases. No overt pneumonia. 3. Cardiomegaly and atherosclerotic disease of coronary arteries with right atrial and biventricular pacemaker in place. 4. Mild mediastinal lymphadenopathy, likely reactive in nature. 5. Atherosclerotic disease of the thoracic aorta and stable appearance of a focal aneurysmal outpouching of the left posterolateral wall of the descending thoracic aorta (image [id number], series 4). IMPRESSION This is a gentleman with paroxysmal atrial fibrillation on xeralto, significant COPD, biventricular pacer for a previous wide-complex rhythm, previous coronary artery disease, significant pulmonary hypertension, mitral regurgitation, diabetes, previous gout and osteoarthritis, currently on 24-hour oxygen with 40- pack-year smoking history who has quit smoking few yrs ago now here * Significant hypoxemia with clinical evidence suggestive of acute pulmonary edema with rapid atrial fibrillation with acute diastolic heart failure with recent intubation from acute diastolic heart failure. * No clinical evidence suggestive of active bacterial infection in the lung and patient recently did have significant C. difficile colitis * Significant COPD with exacerbation compounded by chf * Recent Cdiff colitis now status post antibiotic therapy no diarrhea * Recent bilateral epistaxis with nasal packing, was on abx for this, now better. PT continues to have sig anemia * Sig COPD with a right middle lobe bronchiectasis from his previous pneumonia with MRSA colonization. He also has been wheezing consistent with cardiac asthma with COPD exacerbation related to fluid overload * Paroxysmal atrial fibrillation with anticoagulation before, on amiodarone with biventricular pacer. Pt failed electrical cardioversion on 08/31 * Recent bronchiolitis with Previous small lung nodules * Chronic kidney disease with atrophic kidney. * Hypertension, gout, previous high blood sugar, previous gout. * Mild aortic aneurysm * BPH on Flomax RECOMMENDATION Urats-hdm-[id number] nebulizer Hold lasix as his bun is rising Cardio following with plan for cardioversion if he does not improve Discontinue antibiotics Watch for worsening diarrhea Strict sugar control DC iv steroids and start prednisone 40 and wean Saline nasal spray q 3 hrs prn to use by the patient at the bedside to prevent epistaxis Prognosis guarded as he has end-stage COPD and recurrent heart failure
--- NOTE | 2016-09-01 13:32 | PN- Cardiology ---
Subjective Subjective: No chest pain. Denies dyspnea at rest but does still have dyspnea on exertion. Objective Vital Signs and I&Os Vital Signs Date Time Temp Pulse Resp B/P B/P Pulse O2 O2 Flow FiO2 Mean Ox Delivery Rate 09/01 1302 98 132/78 09/01 1300 98 132/78 09/01 1023 96 Nasal 1.5L Cannula 09/01 0651 97.4 91 20 130/74 97 Nasal 2.5L Cannula 09/01 0000 94 Nasal 2.0L Cannula 08/31 2329 97.5 106 20 140/70 92 Nasal 2.5L Cannula 08/31 2103 96 Nasal 2.0L Cannula 08/31 1600 Nasal 2.0L Cannula 08/31 1520 Nasal 1.5L Cannula 08/31 1422 97.5 97 18 112/70 97 Nasal Cannula Intake & Output 09/01 1600 09/01 0800 09/01 0000 08/31 1600 08/31 0800 08/31 0000 Intake Total 0 240 360 220 Output Total 800 350 100 350 Balance -800 -110 260 -130 Intake, Oral 0 240 360 220 Output, Urine 800 350 100 350 Physical Exam: General: no apparent distress. Alert. On nasal cannula. Eyes: No obvious scleral icterus. HEENT: No jugular venous distention or abnormal jugular venous pulsations. Cardiovascular: Normal intensity S1/S2. Irregular. Pacemaker noted. Respiratory: Trace wheezes bilaterally Abdomen: Soft, nontender with no guarding or rebound tenderness. Musculoskeletal: No clubbing or cyanosis noted, no edema Skin: Warm Neurologic: No gross focal deficits noted. Current Medications: Current Medications Sig/Clare Start time Last Medication Dose Route Stop Time Status Admin Acetaminophen 650 MG Q6P PRN 08/29 0930 AC PO Albuterol Sulfate 3 ML BID 08/31 2200 AC 09/01 INH 1021 Allopurinol 300 MG DAILY 08/29 1000 AC 09/01 PO 1259 Amiodarone HCl 200 MG TID 09/01 1000 AC 09/01 PO 1302 Amiodarone HCl 200 MG DAILY 08/29 1000 DC 08/31 PO 1240 Budesonide/ 2 PUF BID 08/29 1000 AC 09/01 Formoterol Fumarate INH 1315 Diltiazem HCl 120 MG BID 08/310 AC 09/01 PO 1300 Furosemide 60 MG 7:30 AM, & 4:30 PM 08/30 1630 DC 08/31 IV 0828 Insulin Aspart 0 TIDAC 08/31 1700 DC 08/31 CT 08/31 1900 1727 Insulin Human Regular 12 UNITS ONCE ONE 09/01 1230 CAN SC 09/01 1231 Insulin Human Regular 6 UNITS ONCE ONE 09/01 0130 DC 09/01 CT 09/01 0131 0153 Insulin Human Regular 0 Q6 08/31 2359 AC 09/01 SC 0649 Insulin Human Regular 0 Q6 08/31 0819 NC 08/31 CT 1238 Lactobacillus 1 CAP BID 08/29 1000 AC 09/01 Acidophilus PO 1259 Magnesium Oxide 400 MG DAILY 08/29 1000 AC 09/01 PO 1300 Methylprednisolone 40 MG DAILY 08/31 1000 AC 09/01 IV 1306 Oxycodone HCl 5 MG Q6PRN PRN 08/29 0930 AC PO Pravastatin Sodium 80 MG DAILY 08/29 1000 AC 09/01 PO 1259 Rivaroxaban 15 MG DAILY 08/29 1000 AC 09/01 PO 1259 Tamsulosin HCl 0.4 MG DAILY 08/29 1000 AC 09/01 PO 1300 Tiotropium [place] 1 PUF DAILY 08/29 1000 AC 09/01 INH 1314 Tramadol HCl 50 MG Q6P PRN 08/29 0930 AC PO Results Last 48 Hrs of Labs/Mics: Laboratory Tests 09/01/16 0700: Anion Gap 12, Estimated GFR 33 L, BUN/Creatinine Ratio 31.5 H, CBC w Diff NO MAN DIFF REQ, RBC 2.97 L, MCV 80.6, MCH 26.1 L, RDW 18.1 H, MPV 7.5, Gran % 94.6 H, Lymphocytes % 2.6 L, Monocytes % 2.7, Eosinophils % 0.1, Basophils % 0 L, Absolute Granulocytes 10.4 H, Absolute Lymphocytes 0.3 L, Absolute Monocytes 0.3, Absolute Eosinophils 0, Absolute Basophils 0, PUBS MCHC 32.5 L 08/31/16 0800: Anion Gap 12, Estimated GFR 37 L, BUN/Creatinine Ratio 29.4 H, CBC w Diff MAN DIFF ORDERED, RBC 3.24 L, MCV 80.1, MCH 26.0 L, RDW 17.7 H, MPV 7.7, Gran % 95.7 H, Lymphocytes % 2.8 L, Monocytes % 1.5 L, Eosinophils % 0, Basophils % 0 L, Absolute Granulocytes 11.6 H, Absolute Lymphocytes 0.3 L, Absolute Monocytes 0.2, Absolute Eosinophils 0, Absolute Basophils 0, Platelet Estimate VERIFIED BY SMEAR, Polychromasia 1+, Poikilocytosis 1+, Anisocytosis 1+, Ovalocytes 1+, PUBS MCHC 32.4 L Recent Imaging Studies: Telemetry tracings were personally reviewed and show atrial fibrillation with paced rhythm Assessment/Plan Assessment/Plan 1. Respiratory insufficiency 2. Afib with failed cardioversion, on AC 3. BiV-PPM per report 4. CAD with improved ischemic CM/CHF 5. COPD 6. CKD 7. Anemia HD stable. Feels well at rest but still with exertional dyspnea. Currently euvolemic with increased BUN/creatinine; hold diuretics. Hope to see improved HR on increased Amiodarone with plan for future repeat cardioversion attempt. Hg trending down; anemia may contibute to symptoms; would hold off on transfusion for now; consider repeat guaic; last was negative per chart. Steroid regimen per pulmonary. Johnny Garza MD [facility] Continue telemetry? Yes
[2016-09-01 15:27] VITALS: BP 144/60
--- NOTE | 2016-09-01 20:32 | PN- Housestaff ---
Subjective Follow-up For: Acute hypoxic respiratory failure due to pulmonary edema copd exacerbation History of paroxysmal atrial fibrillation on Xarelto History of coronary artery disease status post multiple stents Complaints: no complaints Tele-Events Since Last Visit: Pacing spikes rate 81-101 Subjective: She was seen and examined bedside states that he is feeling good he is using O2 2 L by feels good. Review of Systems Constitutional: Reports: no symptoms. Cardiovascular: Reports: no symptoms. Respiratory: Reports: short of breath (reports very mild shortness of). Gastrointestinal: Reports: no symptoms. Objective Last 24 Hrs of Vital Signs/I&O Vital Signs Date Time Temp Pulse Resp B/P B/P Pulse O2 O2 Flow FiO2 Mean Ox Delivery Rate 09/01 1900 94 Nasal 2.5L Cannula 09/01 1732 87 138/60 09/01 1600 95 Nasal 2.0L Cannula 09/01 1527 97.6 95 18 144/60 94 Nasal Cannula 09/01 1302 98 132/78 09/01 1300 98 132/78 09/01 1023 96 Nasal 1.5L Cannula 09/01 0800 94 Nasal 2.0L Cannula 09/01 0651 97.4 91 20 130/74 97 Nasal 2.5L Cannula 09/01 0000 94 Nasal 2.0L Cannula 08/31 2329 97.5 106 20 140/70 92 Nasal 2.5L Cannula 08/31 2103 96 Nasal 2.0L Cannula Intake & Output 09/01 1600 15 0800 09/01 0000 Intake Total 420 0 240 Output Total 800 350 Balance 420 -800 -110 Intake, Oral 420 0 240 Output, Urine 800 350 Physical Exam General Appearance: Alert, Oriented X3, Cooperative, No Acute Distress Skin: No Rashes, No Breakdown, No Significant Lesion Cardiovascular: Regular Rate, Normal S1, Normal S2, No Murmurs, Gallops, Rubs Lungs: Clear to Auscultation, Normal Air Movement Abdomen: Normal Bowel Sounds Extremities: some edema which is resolving. Current Medications: Current Medications Sig/Clare Start time Last Medication Dose Route Stop Time Status Admin Acetaminophen 650 MG Q6P PRN 08/29 0930 AC PO Albuterol Sulfate 3 ML BID 08/31 2200 AC 09/01 INH 1900 Allopurinol 300 MG DAILY 08/29 1000 AC 09/01 PO 1259 Amiodarone HCl 200 MG TID 09/01 1000 AC 09/01 PO 1732 Amiodarone HCl 200 MG DAILY 08/29 1000 DC 08/31 PO 1240 Budesonide/ 2 PUF BID 08/29 1000 AC 09/01 Formoterol Fumarate INH 1315 Diltiazem HCl 120 MG BID 08/31 2200 AC 09/01 PO 1300 Insulin Aspart 0 AT BEDTIME 09/01 2200 AC SC Insulin Aspart 0 TIDAC 09/01 1700 AC 09/01 SC 1730 Insulin Detemir 6 UNITS BID 09/01 1427 AC 09/01 SC 1330 Insulin Human Regular 12 UNITS ONCE ONE 09/01 1230 CAN SC 09/01 1231 Insulin Human Regular 6 UNITS ONCE ONE 09/01 0130 DC 09/01 SC 09/01 0131 0153 Insulin Human Regular 0 Q6 08/31 2359 DC 09/01 SC 0649 Lactobacillus 1 CAP BID 08/29 1000 AC 09/01 Acidophilus PO 1259 Magnesium Oxide 400 MG DAILY 08/29 1000 AC 09/01 PO 1300 Methylprednisolone 40 MG DAILY 08/31 1000 DC 09/01 IV 1306 Oxycodone HCl 5 MG Q6PRN PRN 08/29 0930 AC PO Pravastatin Sodium 80 MG DAILY 08/29 1000 AC 09/01 PO 1259 Prednisone 40 MG DAILY 09/02 1000 AC PO Rivaroxaban 15 MG DAILY 08/29 1000 AC 09/01 PO 1259 Sodium Chloride 2 SPRAY Q3P PRN 09/01 1530 AC 09/01 REGIS 1729 Tamsulosin HCl 0.4 MG DAILY 08/29 1000 AC 09/01 PO 1300 Tiotropium [place] 1 PUF DAILY 08/29 1000 AC 09/01 INH 1314 Tramadol HCl 50 MG Q6P PRN 08/29 0930 AC PO Last 24 Hrs of Lab/[place] Results Last 24 Hrs of Labs/Mics: Laboratory Tests 09/01/16 0700: Anion Gap 12, Estimated GFR 33 L, BUN/Creatinine Ratio 31.5 H, TSH 2.560, Thyroxine (T4) 5.7, CBC w Diff NO MAN DIFF REQ, RBC 2.97 L, MCV 80.6, MCH 26.1 L, RDW 18.1 H, MPV 7.5, Gran % 94.6 H, Lymphocytes % 2.6 L, Monocytes % 2.7, Eosinophils % 0.1, Basophils % 0 L, Absolute Granulocytes 10.4 H, Absolute Lymphocytes 0.3 L, Absolute Monocytes 0.3, Absolute Eosinophils 0, Absolute Basophils 0, PUBS MCHC 32.5 L Assessment/Plan Assessment: 76-year-old gentleman with a past mental history significant for recurrent nosebleeds/epistaxis status post cauterization, atrial fibrillation on Xarelto, coronary artery disease (history of multiple stents), cardiomyopathy status post pacemaker/defibrillator, COPD(on 1 L of oxygen at bedtime), history of MRSA pneumonia June 2016, recently admitted to [facility] due to epistaxis and C. difficile colitis presented to the ED for further evaluation of worsening shortness of breath and cough. # Acute hypoxic respiratory failure: -Improved breathing status currently on 1.5 L of oxygen Due to pulmoanry edema 2 /2 rapid a fib vs COPD exacerbation (WBC: 14.6 most likely due to steroid use) -continue toMonitor on telemetry floor -DC Lasix due to increasing BUN -Discontinue Solu-Medrol 40 mg and start prednisone 40 and wean -Follow-up blood cultures and sputum cultures -TRC evaluation ,Nebulizer - CT chest without iv contrast tomorrow. #History of paroxysmal atrial fibrillation -currently stable -Cardioversion was done today but the patient did not sustain NSR -Start cardizem 120 mg BID. -Hold IV Lasix as his kidney function is worsening likely secondary to IV diuresis -Increase Amiodarone to 200 mg TID as per Dr. Ramirez recommendation _might need another cardioversion after few weeks -Patient is currently on amiodarone so we are checking a free T4 and TSH level. #History of coronary artery disease status post stents: -Echo done in June 2016:Normal size left ventricle. Mild to moderate concentric left ventricular hypertrophy. Left ventricular systolic function is mildly decreased with estimated ejection fraction 55-60%. There is mild postero- lateral hypokinesis seen -Continue aspirin and statins # History of chronic kidney disease(stage IIIB) Worsening kidney function likely secondary to IV diuresis, hold Lasix. Encouraged by mouth fluids. #Bilateral low extremity Edema: . Lasix as his kidney function is deteriorating # History of chronic normocytic anemia: Hemoglobin currently 7.8 follow up his CBC tomorrow\ iron studies Give saline nasal spray every 3 hours to prevent epistasis and bacitracin ointment #insulin-dependent diabetes mellitus: Patient was seen by Dr. Last today. This morning his glucose was 410. Endocrine suggested placing him on a basal regimen NovoLog sliding scale. A separate bedtime sliding scale was also instated. #History of gout * Continue home dose of allopurinol DVT prophylaxis: mechanical code: full code diet: chf and consistent carbohydrate Problem List: 1. Gout 2. IDDM (insulin dependent diabetes mellitus) 3. Cardiomyopathy 4. Acute diastolic CHF (congestive heart failure) 5. Atrial fibrillation with rapid ventricular response 6. Acute exacerbation of chronic obstructive pulmonary disease Pain Ratin Pain Location: None Pain Goal: Remain pain free Pain Plan: . Tomorrow's Labs & Rationales: cbc bep
[2016-09-01 22:48] VITALS: BP 128/60
[2016-09-02 06:30] VITALS: BP 132/70
[2016-09-02 08:28] LABS: ABSOLUTE BASOPHIL COUNT 0 /CUMM (0.0-0.2); ABSOLUTE EOSINOPHIL COUNT 0 /CUMM (0.0-0.7); ABSOLUTE GRANULOCYTE CT 8.4 /CUMM (1.4-6.5); ABSOLUTE LYMPH COUNT 0.2 /CUMM (1.2-3.4); ABSOLUTE MONOCYTE COUNT 0.2 /CUMM (0.10-0.60); BASOPHIL % 0 % (0.0-2.0); EOSINOPHIL % 0 % (0-5); HEMATOCRIT 25.4 % (42-52); MEAN CORPUSCULAR HGB 26.4 PG (27.0-31.0); MEAN CORPUSCULAR HGB CONC 32.5 G/DL (33.0-37.0); MEAN CORPUSCULAR VOLUME 81.2 FL (80.0-94.0); MEAN PLATELET VOLUME 7.6 FL (7.4-10.4); PLATELET COUNT 316 /CUMM (130-400); RBC DISTRIBUTION WIDTH 18.2 % (11.5-14.5); RED BLOOD CELL CT 3.12 /CUMM (4.70-6.10); WHITE BLOOD CELL COUNT 8.9 /CUMM (4.8-10.8)
[2016-09-02 09:26] LABS: GRANULOCYTE % 95.3 % (42.2-75.2)
--- NOTE | 2016-09-02 09:41 | PN- Housestaff ---
Subjective Follow-up For: Chest pain Aspiration PNA HTN Substance abuse Subjective: Patient complains of SOB when walking, all other symptoms neg. Mo acute evets overnight Review of Systems Constitutional: Reports: see HPI. Objective Last 24 Hrs of Vital Signs/I&O Vital Signs Date Time Temp Pulse Resp B/P B/P Pulse O2 O2 Flow FiO2 Mean Ox Delivery Rate 09/02 1702 101 09/02 1455 97.7 88 18 132/64 94 Nasal 2.5L Cannula 09/02 1018 96 Nasal 2.5L Cannula 09/02 0847 84 128/60 16 0847 84 128/60 16 0800 94 Nasal 2.5L Cannula 09/02 0630 97.7 104 22 132/70 95 Nasal 2.5L Cannula 09/02 0000 Nasal 2.5L Cannula 09/01 2248 98.0 84 16 128/60 93 Nasal Cannula 09/01 2155 90 128/60 09/01 1900 94 Nasal 2.5L Cannula Intake & Output 09/02 1600 09/02 0800 09/02 0000 Intake Total 450 120 450 Output Total 500 450 250 Balance -50 -330 200 Intake, Oral 450 120 450 Number 0 Bowel Movements Output, Urine 500 450 250 Physical Exam General Appearance: Alert, Oriented X3, Cooperative, No Acute Distress HEENT: Atraumatic, PERRLA Cardiovascular: Normal S1, Normal S2, No Murmurs Lungs: Bilateral inspiratory wheezing Abdomen: Normal Bowel Sounds, Soft, No Tenderness Extremities: 2+ bilateral lower ext edema Assessment/Plan Assessment: 76-year-old gentleman with a past mental history significant for recurrent nosebleeds/epistaxis status post cauterization, atrial fibrillation on Xarelto, coronary artery disease (history of multiple stents), cardiomyopathy status post pacemaker/defibrillator, COPD(on 1 L of oxygen at bedtime), history of MRSA pneumonia June 2016, recently admitted to [facility] due to epistaxis and C. difficile colitis presented to the ED for further evaluation of worsening shortness of breath and cough. # Acute hypoxic respiratory failure: -Improved breathing status currently on 1.5 L of oxygen Due to pulmoanry edema 2 /2 rapid a fib vs COPD exacerbation (WBC: 14.6 most likely due to steroid use) -continue toMonitor on telemetry floor -DC Lasix due to increasing BUN -Discontinue Solu-Medrol 40 mg and start prednisone 40 and wean -Follow-up blood cultures and sputum cultures -TRC evaluation ,Nebulizer - CT chest without iv contrast tomorrow. #History of paroxysmal atrial fibrillation -currently stable -Cardioversion was done today but the patient did not sustain NSR -Start cardizem 120 mg BID. -Hold IV Lasix as his kidney function is worsening likely secondary to IV diuresis -Increase Amiodarone to 200 mg TID as per Dr. Ramirez recommendation _might need another cardioversion after few weeks -Patient is currently on amiodarone so we are checking a free T4 and TSH level. #History of coronary artery disease status post stents: -Echo done in June 2016:Normal size left ventricle. Mild to moderate concentric left ventricular hypertrophy. Left ventricular systolic function is mildly decreased with estimated ejection fraction 55-60%. There is mild postero- lateral hypokinesis seen -Continue aspirin and statins # History of chronic kidney disease(stage IIIB) Worsening kidney function likely secondary to IV diuresis, hold Lasix. Encouraged by mouth fluids. #Bilateral low extremity Edema: . Lasix as his kidney function is deteriorating # History of chronic normocytic anemia: Hemoglobin currently 7.8 follow up his CBC tomorrow\ iron studies Give saline nasal spray every 3 hours to prevent epistasis and bacitracin ointment #insulin-dependent diabetes mellitus: Patient was seen by Dr. Last today. This morning his glucose was 410. Endocrine suggested placing him on a basal regimen NovoLog sliding scale. A separate bedtime sliding scale was also instated. #History of gout * Continue home dose of allopurinol DVT prophylaxis: mechanical code: full code diet: chf and consistent carbohydrate Problem List: 1. COPD (chronic obstructive pulmonary disease) Pain Ratin Pain Location: N/A Pain Goal: Remain pain free Pain Plan: N/A Tomorrow's Labs & Rationales: CBC BEP
--- NOTE | 2016-09-02 10:18 | PN- Diabetes ---
Assessment/Plan Assessment: The patient states he feels okay. Blood sugars yesterday high yesterday we're just beginning his insulin regimen. Fingerstick blood sugar reading was 289 before supper, 365 at bedtime, and 308 this morning. The patient's prednisone has been changed to 40 mg once a day by mouth in the morning. Thyroid function tests were repeated and his TSH is in the good range at 2.56. Plan: Suggest increase the patient's Levemir to 10 units twice a day. Continue present sliding-scale NovoLog. We will observe his blood sugars today before making further changes. Subjective Subjective: Feels okay Review of Systems Constitutional: Denies: chills, fever. Cardiovascular: Denies: chest pain. Respiratory: Reports: short of breath. Gastrointestinal: Denies: abdominal pain, nausea, vomiting. Skin: Reports: no symptoms. Objective Last 24 Hrs of Vital Signs/I&O Vital Signs Date Time Temp Pulse Resp B/P B/P Pulse O2 O2 Flow FiO2 Mean Ox Delivery Rate 09/02 1018 96 Nasal 2.5L Cannula 09/02 0847 84 128/60 09/02 0847 84 128/60 09/02 0800 94 Nasal 2.5L Cannula 09/02 0630 97.7 104 22 132/70 95 Nasal 2.5L Cannula 09/02 0000 Nasal 2.5L Cannula 09/01 2248 98.0 84 16 128/60 93 Nasal Cannula 09/01 2155 90 128/60 09/01 1900 94 Nasal 2.5L Cannula 09/01 1732 87 138/60 09/01 1600 95 Nasal 2.0L Cannula 09/01 1527 97.6 95 18 144/60 94 Nasal Cannula 09/01 1302 98 132/78 09/01 1300 98 132/78 09/01 1023 96 Nasal 1.5L Cannula Intake & Output 09/02 1600 16 0800 09/02 0000 Intake Total 120 450 Output Total 450 250 Balance -330 200 Intake, Oral 120 450 Number 0 Bowel Movements Output, Urine 450 250 Physical Exam General Appearance: well developed/nourished, alert, awake, comfortable Head: normal appearance Neck: normal inspection Respiratory: normal breath sounds Cardiovascular: regular rate/rhythm Abdomen: normal bowel sounds, soft Extremities: normal inspection Skin: intact Current Medications: Current Medications Sig/Clare Start time Last Medication Dose Route Stop Time Status Admin Acetaminophen 650 MG Q6P PRN 08/29 0930 AC PO Albuterol Sulfate 3 ML BID 08/31 2200 AC 09/02 INH 1014 Allopurinol 300 MG DAILY 08/29 1000 AC 09/02 PO 0846 Amiodarone HCl 200 MG TID 09/01 1000 AC 09/02 PO 0847 Budesonide/ 2 PUF BID 08/29 1000 AC 09/02 Formoterol Fumarate INH 0849 Diltiazem HCl 120 MG BID 08/31 2200 AC 09/02 PO 0847 Insulin Aspart 0 AT BEDTIME 09/01 2200 AC 09/01 SC 2155 Insulin Aspart 0 TIDAC 09/01 1700 AC 09/02 SC 0800 Insulin Detemir 6 UNITS BID 09/01 1427 AC 09/02 SC 0800 Insulin Human Regular 0 Q6 08/31 2359 DC 09/01 SC 0649 Lactobacillus 1 CAP BID 08/29 1000 AC 09/02 Acidophilus PO 0846 Magnesium Oxide 400 MG DAILY 08/29 1000 AC 09/02 PO 0846 Methylprednisolone 40 MG DAILY 08/31 1000 DC 09/01 IV 1306 Oxycodone HCl 5 MG Q6PRN PRN 08/29 0930 AC PO Pravastatin Sodium 80 MG DAILY 08/29 1000 AC 09/02 PO 0846 Prednisone 40 MG DAILY 09/02 1000 AC 09/02 PO 0846 Rivaroxaban 15 MG DAILY 08/29 1000 AC 09/02 PO 0847 Sodium Chloride 2 SPRAY Q3P PRN 09/01 1530 AC 09/01 REGIS 1729 Tamsulosin HCl 0.4 MG DAILY 08/29 1000 AC 09/02 PO 0847 Tiotropium [place] 1 PUF DAILY 08/29 1000 AC 09/02 INH 0847 Tramadol HCl 50 MG Q6P PRN 08/29 0930 AC PO Current Medications Sig/Clare Start time Last Medication Dose Route Stop Time Status Admin Acetaminophen 650 MG Q6P PRN 08/29 0930 AC PO Albuterol Sulfate 3 ML BID 08/31 2200 AC 09/02 INH 1014 Allopurinol 300 MG DAILY 08/29 1000 AC 09/02 PO 0846 Amiodarone HCl 200 MG TID 09/01 1000 AC 09/02 PO 0847 Budesonide/ 2 PUF BID 08/29 1000 AC 09/02 Formoterol Fumarate INH 0849 Diltiazem HCl 120 MG BID 08/31 2200 AC 09/02 PO 0847 Insulin Aspart 0 AT BEDTIME 09/01 2200 AC 09/01 SC 2155 Insulin Aspart 0 TIDAC 09/01 1700 AC 09/02 SC 0800 Insulin Detemir 6 UNITS BID 09/01 1427 AC 09/02 SC 0800 Insulin Human Regular 0 Q6 08/31 2359 DC 09/01 SC 0649 Lactobacillus 1 CAP BID 08/29 1000 AC 09/02 Acidophilus PO 0846 Magnesium Oxide 400 MG DAILY 08/29 1000 AC 09/02 PO 0846 Methylprednisolone 40 MG DAILY 08/31 1000 DC 09/01 IV 1306 Oxycodone HCl 5 MG Q6PRN PRN 08/29 0930 AC PO Pravastatin Sodium 80 MG DAILY 08/29 1000 AC 09/02 PO 0846 Prednisone 40 MG DAILY 09/02 1000 AC 09/02 PO 0846 Rivaroxaban 15 MG DAILY 08/29 1000 AC 09/02 PO 0847 Sodium Chloride 2 SPRAY Q3P PRN 09/01 1530 AC 09/01 REGIS 1729 Tamsulosin HCl 0.4 MG DAILY 08/29 1000 AC 09/02 PO 0847 Tiotropium [place] 1 PUF DAILY 08/29 1000 AC 09/02 INH 0847 Tramadol HCl 50 MG Q6P PRN 08/29 0930 AC PO Findings Pertinent Lab/[place] Results: Laboratory Tests 09/02 07 Chemistry Sodium (137 - 145 mmol/L) 135 L Potassium (3.5 - 5.1 mmol/L) 3.9 Chloride (98 - 107 mmol/L) 98 Carbon Dioxide (22 - 30 mmol/L) 25 Anion Gap (5 - 16) 12 BUN (9 - 20 mg/dL) 60 H Creatinine (0.7 - 1.2 mg/dL) 1.9 H Estimated GFR (>60 ml/min) 35 L BUN/Creatinine Ratio (7 - 25 %) 31.6 H Hematology CBC w Diff NO MAN DIFF REQ WBC (4.8 - 10.8 /CUMM) 8.9 RBC (4.70 - 6.10 /CUMM) 3.12 L Hgb (14.0 - 18.0 G/DL) 8.3 L Hct (42 - 52 %) 25.4 L MCV (80.0 - 94.0 FL) 81.2 MCH (27.0 - 31.0 PG) 26.4 L RDW (11.5 - 14.5 %) 18.2 H Plt Count (130 - 400 /CUMM) 316 MPV (7.4 - 10.4 FL) 7.6 Gran % (42.2 - 75.2 %) 95.3 H Lymphocytes % (20.5 - 51.1 %) 2.7 L Monocytes % (1.7 - 9.3 %) 2.0 Eosinophils % (0 - 5 %) 0 Basophils % (0.0 - 2.0 %) 0 L Absolute Granulocytes (1.4 - 6.5 /CUMM) 8.4 H Absolute Lymphocytes (1.2 - 3.4 /CUMM) 0.2 L Absolute Monocytes (0.10 - 0.60 /CUMM) 0.2 Absolute Eosinophils (0.0 - 0.7 /CUMM) 0 Absolute Basophils (0.0 - 0.2 /CUMM) 0 PUBS MCHC (33.0 - 37.0 G/DL) 32.5 L
--- NOTE | 2016-09-02 11:19 | PN- Att Addend ---
Attending Addendum Attending Brief Note Patient this is morning reports improved symptoms. However he has not ambulated. General Appearance: Alert, No Acute Distress Skin: Grossly normal HEENT: PEERLA Neck: Supple, No JVD Cardiovascular: Irregular rhythm Lungs: Decreased air entry Abdomen: Normal Bowel Sounds, Soft, No Tenderness Neurological: Normal Speech, Strength at 5/5 X4 Ext, Cranial Nerves 3-12 NL, Reflexes 2+ Extremities: Pedal edema Assessment Improved breathing status currently on 1.5 L of oxygen. He is currently on prednisone. Worsening kidney function likely secondary to IV diuresis. At this point Lasix is on hold and kidney function is improving. Unfortunately patient failed DC cardioversion. He appears to be having persistent symptoms mostly with exertion. Plan to ambulate patient again today to see symptoms as A. fib rates have improved on amiodarone. If he has persistent shortness of breath with exertion might then need a repeat cardioversion vs ablation. Plan Ambulate patient Hold diuretics Encourage by mouth fluids Check labs in a.m. A. fib management as per cardiology Continue prednisone taper, TRC and nebs Continue other home medications Current Medications Sig/Clare Start time Last Medication Dose Route Stop Time Status Admin Acetaminophen 650 MG Q6P PRN 08/29 0930 AC PO Albuterol Sulfate 3 ML BID 08/31 2200 AC 09/02 INH 1014 Allopurinol 300 MG DAILY 08/29 1000 AC 09/02 PO 0846 Amiodarone HCl 200 MG TID 09/01 1000 AC 09/02 PO 0847 Budesonide/ 2 PUF BID 08/29 1000 AC 09/02 Formoterol Fumarate INH 0849 Diltiazem HCl 120 MG BID 08/31 2200 AC 09/02 PO 0847 Insulin Aspart 0 AT BEDTIME 09/01 2200 AC 09/01 SC 2155 Insulin Aspart 0 TIDAC 09/01 1700 AC 09/02 SC 0800 Insulin Detemir 6 UNITS BID 09/01 1427 AC 09/02 SC 0800 Insulin Human Regular 0 Q6 08/31 2359 DC 09/01 SC 0649 Lactobacillus 1 CAP BID 08/29 1000 AC 09/02 Acidophilus PO 0846 Magnesium Oxide 400 MG DAILY 08/29 1000 AC 09/02 PO 0846 Methylprednisolone 40 MG DAILY 08/31 1000 DC 09/01 IV 1306 Oxycodone HCl 5 MG Q6PRN PRN 07/12 0930 AC PO Pravastatin Sodium 80 MG DAILY 08/29 1000 AC 09/02 PO 0846 Prednisone 40 MG DAILY 09/02 1000 AC 09/02 PO 0846 Rivaroxaban 15 MG DAILY 08/29 1000 AC 09/02 PO 0847 Sodium Chloride 2 SPRAY Q3P PRN 09/01 1530 AC 09/01 REGIS 1729 Tamsulosin HCl 0.4 MG DAILY 08/29 1000 AC 09/02 PO 0847 Tiotrop[address] [place] 1 PUF DAILY 08/29 1000 AC 09/02 INH 0847 Tramadol HCl 50 MG Q6P PRN 08/29 0930 AC PO Laboratory Tests 09/02 07 Chemistry Sodium (137 - 145 mmol/L) 135 L Potassium (3.5 - 5.1 mmol/L) 3.9 Chloride (98 - 107 mmol/L) 98 Carbon Dioxide (22 - 30 mmol/L) 25 Anion Gap (5 - 16) 12 BUN (9 - 20 mg/dL) 60 H Creatinine (0.7 - 1.2 mg/dL) 1.9 H Estimated GFR (>60 ml/min) 35 L BUN/Creatinine Ratio (7 - 25 %) 31.6 H Hematology CBC w Diff NO MAN DIFF REQ WBC (4.8 - 10.8 /CUMM) 8.9 RBC (4.70 - 6.10 /CUMM) 3.12 L Hgb (14.0 - 18.0 G/DL) 8.3 L Hct (42 - 52 %) 25.4 L MCV (80.0 - 94.0 FL) 81.2 MCH (27.0 - 31.0 PG) 26.4 L RDW (11.5 - 14.5 %) 18.2 H Plt Count (130 - 400 /CUMM) 316 MPV (7.4 - 10.4 FL) 7.6 Gran % (42.2 - 75.2 %) 95.3 H Lymphocytes % (20.5 - 51.1 %) 2.7 L Monocytes % (1.7 - 9.3 %) 2.0 Eosinophils % (0 - 5 %) 0 Basophils % (0.0 - 2.0 %) 0 L Absolute Granulocytes (1.4 - 6.5 /CUMM) 8.4 H Absolute Lymphocytes (1.2 - 3.4 /CUMM) 0.2 L Absolute Monocytes (0.10 - 0.60 /CUMM) 0.2 Absolute Eosinophils (0.0 - 0.7 /CUMM) 0 Absolute Basophils (0.0 - 0.2 /CUMM) 0 PUBS MCHC (33.0 - 37.0 G/DL) 32.5 L Vital Signs Date Time Temp Pulse Resp B/P B/P Pulse O2 O2 Flow FiO2 Mean Ox Delivery Rate 09/02 1018 96 Nasal 2.5L Cannula 09/02 0847 84 128/60 09/02 0847 84 128/60 09/02 0800 94 Nasal 2.5L Cannula 09/02 0630 97.7 104 22 132/70 95 Nasal 2.5L Cannula 09/02 0000 Nasal 2.5L Cannula 09/01 2248 98.0 84 16 128/60 93 Nasal Cannula 09/01 2155 90 128/60 09/01 1900 94 Nasal 2.5L Cannula 09/01 1732 87 138/60 09/01 1600 95 Nasal 2.0L Cannula 09/01 1527 97.6 95 18 144/60 94 Nasal Cannula 09/01 1302 98 132/78 07 1300 98 132/78
--- NOTE | 2016-09-02 11:34 | PN- Pulmonary ---
Subjective HPI/Critical Care Issues: Patient this is morning reports improved symptoms. However he has not ambulated. Objective Current Medications: Current Medications Sig/Clare Start time Last Medication Dose Route Stop Time Status Admin Acetaminophen 650 MG Q6P PRN 08/29 0930 AC PO Albuterol Sulfate 3 ML BID 08/31 2200 AC 09/02 INH 1014 Allopurinol 300 MG DAILY 08/29 1000 AC 09/02 PO 0846 Amiodarone HCl 200 MG TID 09/01 1000 AC 09/02 PO 0847 Budesonide/ 2 PUF BID 08/29 1000 AC 09/02 Formoterol Fumarate INH 0849 Diltiazem HCl 120 MG BID 08/31 2200 AC 09/02 PO 0847 Insulin Aspart 0 AT BEDTIME 09/01 2200 AC 09/01 SC 2155 Insulin Aspart 0 TIDAC 09/01 1700 AC 09/02 SC 0800 Insulin Detemir 6 UNITS BID 09/01 1427 AC 09/02 SC 0800 Insulin Human Regular 0 Q6 08/31 2359 DC 09/01 SC 0649 Lactobacillus 1 CAP BID 08/29 1000 AC 09/02 Acidophilus PO 0846 Magnesium Oxide 400 MG DAILY 08/29 1000 AC 09/02 PO 0846 Methylprednisolone 40 MG DAILY 08/31 1000 DC 09/01 IV 1306 Oxycodone HCl 5 MG Q6PRN PRN 08/29 0930 AC PO Pravastatin Sodium 80 MG DAILY 08/29 1000 AC 09/02 PO 0846 Prednisone 40 MG DAILY 09/02 1000 AC 09/02 PO 0846 Rivaroxaban 15 MG DAILY 08/29 1000 AC 09/02 PO 0847 Sodium Chloride 2 SPRAY Q3P PRN 09/01 1530 AC 09/01 REGIS 1729 Tamsulosin HCl 0.4 MG DAILY 08/29 1000 AC 09/02 PO 0847 Tiotropium [place] 1 PUF DAILY 08/29 1000 AC 09/02 INH 0847 Tramadol HCl 50 MG Q6P PRN 08/29 0930 AC PO Vital Signs & I&O Last 24 Hrs of Vitals and I&O: Vital Signs Date Time Temp Pulse Resp B/P B/P Pulse O2 O2 Flow FiO2 Mean Ox Delivery Rate 09/02 1018 96 Nasal 2.5L Cannula 09/02 0847 84 128/60 09/02 0847 84 128/60 09/02 0800 94 Nasal 2.5L Cannula 09/02 0630 97.7 104 22 132/70 95 Nasal 2.5L Cannula 09/02 0000 Nasal 2.5L Cannula 09/01 2248 98.0 84 16 128/60 93 Nasal Cannula 09/01 2155 90 128/60 09/01 1900 94 Nasal 2.5L Cannula 09/01 1732 87 138/60 09/01 1600 95 Nasal 2.0L Cannula 09/01 1527 97.6 95 18 144/60 94 Nasal Cannula 09/01 1302 98 132/78 09/01 1300 98 132/78 Intake & Output 09/02 1600 16 0800 09/02 0000 Intake Total 120 450 Output Total 450 250 Balance -330 200 Intake, Oral 120 450 Number 0 Bowel Movements Output, Urine 450 250 Impression/Plan Impression/Plan Impression/Plan: Physical Exam General Appearance Alert, Oriented X3 Skin No Rashes, No Breakdown Neck Supple, No JVD Cardiovascular irregularly irregular rate and rhythm Lungs bilateral inspiratory wheeze on exam Abdomen Normal Bowel Sounds, Soft Neurological Normal Gait, Normal Speech Extremities 2 + pitting edema in lower extremities CT CHEST REVIEWED FROM 08/31 MPRESSION: 1. Moderate pulmonary emphysema and chronic bronchial wall thickening (likely chronic bronchitis) in both lungs. 2. Chest CT imaging findings, combined with a review of recent chest radiographs, suggests significant improvement in previously noted interstitial pulmonary edema. There is some residual subtle groundglass opacity in lower lung zones and small pleural effusions (right larger than left) associated with compressive atelectasis in the bases. No overt pneumonia. 3. Cardiomegaly and atherosclerotic disease of coronary arteries with right atrial and biventricular pacemaker in place. 4. Mild mediastinal lymphadenopathy, likely reactive in nature. 5. Atherosclerotic disease of the thoracic aorta and stable appearance of a focal aneurysmal outpouching of the left posterolateral wall of the descending thoracic aorta (image [id number], series 4). IMPRESSION This is a gentleman with paroxysmal atrial fibrillation on xeralto, significant COPD, biventricular pacer for a previous wide-complex rhythm, previous coronary artery disease, significant pulmonary hypertension, mitral regurgitation, diabetes, previous gout and osteoarthritis, currently on 24-hour oxygen with 40- pack-year smoking history who has quit smoking few yrs ago now here * IMproving hypoxemia due to acute pulmonary edema with rapid atrial fibrillation with acute diastolic heart failure with recent intubation from acute diastolic heart failure. * No clinical evidence suggestive of active bacterial infection in the lung and patient recently did have significant C. difficile colitis * Significant COPD with exacerbation compounded by chf * Recent Cdiff colitis now status post antibiotic therapy no diarrhea * Recent bilateral epistaxis with nasal packing, was on abx for this, now better. PT continues to have sig anemia * Sig COPD with a right middle lobe bronchiectasis from his previous pneumonia with MRSA colonization. He also has been wheezing consistent with cardiac asthma with COPD exacerbation related to fluid overload * Paroxysmal atrial fibrillation with anticoagulation before, on amiodarone with biventricular pacer. Pt failed electrical cardioversion on 08/31 * Recent bronchiolitis with Previous small lung nodules * Chronic kidney disease with atrophic kidney. * Hypertension, gout, previous high blood sugar, previous gout. * Mild aortic aneurysm * BPH on Flomax RECOMMENDATION [id number] nebulizer Hold lasix as his bun is rising Cardio following with plan for cardioversion if he does not improve Strict sugar control DC iv steroids and start prednisone 40 and wean Saline nasal spray q 3 hrs prn Prognosis guarded as he has end-stage COPD and recurrent heart failure
--- NOTE | 2016-09-02 13:31 | PN- Cardiology ---
Subjective Subjective: Denies dyspnea at rest. Has not ambulated much today. No chest pain. Objective Vital Signs and I&Os Vital Signs Date Time Temp Pulse Resp B/P B/P Pulse O2 O2 Flow FiO2 Mean Ox Delivery Rate 09/02 1018 96 Nasal 2.5L Cannula 09/02 0847 84 128/60 09/02 0847 84 128/60 09/02 0800 94 Nasal 2.5L Cannula 09/02 0630 97.7 104 22 132/70 95 Nasal 2.5L Cannula 09/02 0000 Nasal 2.5L Cannula 09/01 2248 98.0 84 16 128/60 93 Nasal Cannula 09/01 2155 90 128/60 09/01 1900 94 Nasal 2.5L Cannula 09/01 1732 87 138/60 09/01 1600 95 Nasal 2.0L Cannula 09/01 1527 97.6 95 18 144/60 94 Nasal Cannula Intake & Output 09/02 1600 09/02 0800 / 0000 09/01 1600 09/01 0800 09/01 0000 Intake Total 120 450 420 0 240 Output Total 450 250 800 350 Balance -330 200 420 -800 -110 Intake, Oral 120 450 420 0 240 Number 0 Bowel Movements Output, Urine 450 250 800 350 Physical Exam: General: no apparent distress. Alert. On nasal cannula. Eyes: No obvious scleral icterus. HEENT: No jugular venous distention or abnormal jugular venous pulsations. Cardiovascular: Normal intensity S1/S2. Irregular. Pacemaker noted. Respiratory: Trace wheezes bilaterally Abdomen: Soft, nontender with no guarding or rebound tenderness. Musculoskeletal: No clubbing or cyanosis noted, no edema Skin: Warm Neurologic: No gross focal deficits noted. Current Medications: Current Medications Sig/Clare Start time Last Medication Dose Route Stop Time Status Admin Acetaminophen 650 MG Q6P PRN 08/29 0930 AC PO Albuterol Sulfate 3 ML BID 08/31 2200 AC 09/02 INH 1014 Allopurinol 300 MG DAILY 08/29 1000 AC 09/02 PO 0846 Amiodarone HCl 200 MG TID 09/01 1000 AC 09/02 PO 0847 Budesonide/ 2 PUF BID 08/29 1000 AC 09/02 Formoterol Fumarate INH 0849 Diltiazem HCl 120 MG BID 08/31 2200 AC 09/02 PO 0847 Insulin Aspart 0 AT BEDTIME 09/01 2199 AC 09/01 SC 2155 Insulin Aspart 0 TIDAC 09/01 1700 AC 09/02 SC 1213 Insulin Detemir 6 UNITS BID 09/01 1427 AC 09/02 SC 0800 Insulin Human Regular 0 Q6 08/31 2359 DC 09/01 SC 0649 Lactobacillus 1 CAP BID 08/29 1000 AC 09/02 Acidophilus PO 0846 Magnesium Oxide 400 MG DAILY 08/29 1000 AC 09/02 PO 0846 Methylprednisolone 40 MG DAILY 08/31 1000 DC 09/01 IV 1306 Oxycodone HCl 5 MG Q6PRN PRN 08/29 0930 AC PO Pravastatin Sodium 80 MG DAILY 08/29 1000 AC 09/02 PO 0846 Prednisone 40 MG DAILY 09/02 1000 AC 09/02 PO 0846 Rivaroxaban 15 MG DAILY 08/29 1000 AC 09/02 PO 0847 Sodium Chloride 2 SPRAY Q3P PRN 09/01 1530 AC 09/01 REGIS 1729 Tamsulosin HCl 0.4 MG DAILY 08/29 1000 AC 09/02 PO 0847 Tiotropium [place] 1 PUF DAILY 08/29 1000 AC 09/02 INH 0847 Tramadol HCl 50 MG Q6P PRN 08/29 0930 AC PO Results Last 48 Hrs of Labs/Mics: Laboratory Tests 09/02/16 0705: Anion Gap 12, Estimated GFR 35 L, BUN/Creatinine Ratio 31.6 H, CBC w Diff NO MAN DIFF REQ, RBC 3.12 L, MCV 81.2, MCH 26.4 L, RDW 18.2 H, MPV 7.6, Gran % 95.3 H, Lymphocytes % 2.7 L, Monocytes % 2.0, Eosinophils % 0, Basophils % 0 L, Absolute Granulocytes 8.4 H, Absolute Lymphocytes 0.2 L, Absolute Monocytes 0.2, Absolute Eosinophils 0, Absolute Basophils 0, PUBS MCHC 32.5 L 09/01/16 0700: Anion Gap 12, Estimated GFR 33 L, BUN/Creatinine Ratio 31.5 H, TSH 2.560, Thyroxine (T4) 5.7, CBC w Diff NO MAN DIFF REQ, RBC 2.97 L, MCV 80.6, MCH 26.1 L, RDW 18.1 H, MPV 7.5, Gran % 94.6 H, Lymphocytes % 2.6 L, Monocytes % 2.7, Eosinophils % 0.1, Basophils % 0 L, Absolute Granulocytes 10.4 H, Absolute Lymphocytes 0.3 L, Absolute Monocytes 0.3, Absolute Eosinophils 0, Absolute Basophils 0, PUBS MCHC 32.5 L Recent Imaging Studies: Telemetry tracings were personally reviewed and show atrial fibrillation with grossly controlled ventricular response rate and paced rhythm Assessment/Plan Assessment/Plan 1. Respiratory insufficiency 2. Afib with failed cardioversion, on AC 3. BiV-PPM per report 4. CAD with improved ischemic CM/CHF 5. COPD 6. CKD 7. Anemia Stable. Overall HR appears well controlled on telemetry. Continue on the increased Amiodarone dose with plan for repeat cardioversion attempt. Appears euvolemic on exam. Hg low but stable today. Johnny Garza MD [facility] Continue telemetry? Yes
[2016-09-02 14:55] VITALS: BP 132/64
[2016-09-02 22:17] VITALS: BP 136/60
[2016-09-03 06:37] VITALS: BP 130/60
--- NOTE | 2016-09-03 07:31 | PN- Housestaff ---
Subjective Follow-up For: 1. Acute hypoxic respiratory failure 2. COPD exacerbation 3. urine retention 4. Anemia Complaints: SOB Tele-Events Since Last Visit: S-PACING [id number] Subjective: Patient is sitting comfortably in bed on nasal oxygen, he reports some SOB Review of Systems Constitutional: Reports: malaise, weakness. Cardiovascular: Denies: see HPI. Respiratory: Reports: short of breath. Gastrointestinal: Denies: no symptoms. Genitourinary: Denies: no symptoms. Neurological/Psychological: Denies: no symptoms. Objective Last 24 Hrs of Vital Signs/I&O Vital Signs Date Time Temp Pulse Resp B/P B/P Pulse O2 O2 Flow FiO2 Mean Ox Delivery Rate 09/03 1700 100 96 09/03 1650 115 164/80 09/03 1624 92 Venti Mask 55% 09/03 1556 110 146/68 09/03 1443 Nasal 2.0L Cannula 09/03 1436 96.1 110 20 146/68 95 Nasal Cannula 09/03 1424 Nasal 2.0L Cannula 09/03 1055 108 152/70 09/03 1055 108 152/70 09/03 0820 97 Nasal 2.0L Cannula 09/03 0800 Nasal 2.5L Cannula 09/03 0637 97.8 93 20 130/60 93 Nasal 2.0L Cannula 09/03 0000 Venti Mask 40% 09/02 2217 97.3 103 20 136/60 94 Nasal 2.0L Cannula 09/02 2156 112 136/60 09/02 2005 94 Venti Mask 30% Intake & Output 09/03 1600 09/03 0800 09/03 0000 Intake Total 600 450 Output Total 400 250 350 Balance 200 -250 100 Intake, Oral 600 450 Output, Urine 400 250 350 Physical Exam General Appearance: Alert, Oriented X3, Cooperative, No Acute Distress Skin: No Rashes, No Breakdown, No Significant Lesion Skin Temp/Moisture Exam: Warm/Dry HEENT: Atraumatic, PERRLA, EOMI, Mucous Membr. moist/pink Neck: Supple, No JVD Cardiovascular: Normal S1, Normal S2 Lungs: BIBASILAR WHEEZES AND CREPITATION Abdomen: Normal Bowel Sounds, Soft, No Tenderness Neurological: Normal Speech, Strength at 5/5 X4 Ext, Normal Tone Extremities: No Clubbing, No Cyanosis, No Edema Current Medications: Current Medications Sig/Clare Start time Last Medication Dose Route Stop Time Status Admin Acetaminophen 650 MG Q6P PRN 08/29 0930 AC PO Albuterol Sulfate 3 ML BID 08/31 2200 AC 09/03 INH 1615 Allopurinol 300 MG DAILY 08/29 1000 AC 09/03 PO 1057 Amiodarone HCl 200 MG TID 09/01 1000 AC 09/03 PO 1650 Budesonide/ 2 PUF BID 08/29 1000 AC 09/03 Formoterol Fumarate INH 1059 Diltiazem HCl 5 MG ONCE ONE 09/03 1545 DC 09/03 IV PUSH 09/03 1546 1556 Diltiazem HCl 120 MG BID 08/31 2200 AC 09/03 PO 1055 Furosemide 40 MG ONCE ONE 09/03 1645 DC 09/03 IV PUSH 09/03 1646 1639 Insulin Aspart 0 TIDAC 09/03 1200 AC SC Insulin Aspart 0 AT BEDTIME 09/01 2200 [place] 09/02 [place] 2155 Insulin Aspart 0 TIDAC 09/01 1700 NJ 09/02 SC 1702 Insulin Detemir 10 UNITS BID 09/03 1000 AC 09/03 SC 1104 Insulin Detemir 6 UNITS BID 09/01 1427 NJ 09/02 SC 2156 Insulin Human Regular 0 Q6 09/03 0803 AC 09/03 SC 0817 Ipratropium [place] 2.5 ML Q4P PRN 09/03 1445 AC INH Lactobacillus 1 CAP BID 08/29 1000 AC 09/03 Acidophilus PO 1057 Lorazepam 1 MG Q4P PRN 09/03 1500 AC 09/03 IV 1453 Magnesium Oxide 400 MG DAILY 08/29 1000 AC 09/03 PO 1055 Methylprednisolone 40 MG Q8 09/03 1644 AC 09/03 IV 1648 Oxycodone HCl 5 MG Q6PRN PRN 08/29 0930 AC PO Pravastatin Sodium 80 MG DAILY 08/29 1000 AC 09/03 PO 1056 Prednisone 10 MG DAILY 09/10 1000 CAN PO 09/12 1001 Prednisone 20 MG DAILY 09/07 1000 CAN PO 09/09 1001 Prednisone 30 MG DAILY 09/04 1000 CAN PO Prednisone 30 MG DAILY 09/04 1000 CAN PO 09/06 1001 Prednisone 40 MG DAILY 09/02 1000 DC 09/03 PO 1057 Rivaroxaban 15 MG DAILY 08/29 1000 AC 09/03 PO 1056 Sodium Chloride 2 SPRAY Q3P PRN 07/15 1530 AC 09/03 REGIS 1059 Tamsulosin HCl 0.4 MG DAILY 08/29 1000 AC 09/03 PO 1055 Tiotropium [place] 1 PUF DAILY 08/29 1000 AC 09/03 INH 1058 Tramadol HCl 50 MG Q6P PRN 08/29 0930 AC PO Last 24 Hrs of Lab/[place] Results Last 24 Hrs of Labs/Mics: Laboratory Tests 09/03/16 1650: pH 7.31 L, pCO2 53 H, pO2 82, HCO3 26, ABG O2 Sat (Measured) 93.0 L, Carboxyhemoglobin 0.2 L, O2 Concentration % 55%, O2 Delivery Method VM, Phlebotomy Draw Site RIGHT RADIAL 09/03/16 0620: Anion Gap 9, Estimated GFR 37 L, BUN/Creatinine Ratio 33.3 H, CBC w Diff NO MAN DIFF REQ, RBC 3.24 L, MCV 81.5, MCH 26.4 L, RDW 18.5 H, MPV 7.6, Gran % 92.0 H, Lymphocytes % 3.1 L, Monocytes % 4.2, Eosinophils % 0.7, Basophils % 0 L, Absolute Granulocytes 11.2 H, Absolute Lymphocytes 0.4 L, Absolute Monocytes 0.5, Absolute Eosinophils 0.1, Absolute Basophils 0, PUBS MCHC 32.4 L Microbiology 09/03 1711 URINE ROUT: Urine Culture - COLB Assessment/Plan Assessment: 76-year-old gentleman with a past mental history significant for recurrent nosebleeds/epistaxis status post cauterization, atrial fibrillation on Xarelto, coronary artery disease (history of multiple stents), cardiomyopathy status post pacemaker/defibrillator, COPD(on 1 L of oxygen at bedtime), history of MRSA pneumonia June 2016, recently admitted to [facility] due to epistaxis and C. difficile colitis presented to the ED for further evaluation of worsening shortness of breath and cough. # Acute hypoxic respiratory failure: -Improved breathing status currently on 1.5 L of oxygen Due to pulmoanry edema 2 /2 rapid a fib vs COPD exacerbation (WBC HIGH is likely due to steroid use) -continue to Monitor on telemetry floor -DC Lasix due to increasing BUN -Continue prednisone 30 and wean -Follow-up blood cultures and sputum cultures -reduce albuterol veb dose by half (1.25 mg) and use only PRN -TRC evaluation . #History of paroxysmal atrial fibrillation -currently pt is not stable with bilateral crepitation likely due to pulmonary edema due to a fib -continue cardizem 120 mg BID. -pt needed one push of IV Lasix for worsening pulmonary function with possible pulmonary edema, will continue to monitor his ABG, might need ICU admission. -Increase Amiodarone to 200 mg TID as per Dr. Ramirez recommendation _might need another cardioversion after two weeks. -Patient is currently on amiodarone so we are checking a free T4 and TSH level. #History of coronary artery disease status post stents: -Echo done in June 2016:Normal size left ventricle. Mild to moderate concentric left ventricular hypertrophy. Left ventricular systolic function is mildly decreased with estimated ejection fraction 55-60%. There is mild postero- lateral hypokinesis seen -Continue aspirin and statins # History of chronic kidney disease(stage IIIB) Worsening kidney function likely secondary to IV diuresis, hold Lasix. Encouraged by mouth fluids. #Bilateral low extremity Edema: . hold Lasix as his kidney function is deteriorating pt needed an IV lasix push # History of chronic normocytic anemia: Hemoglobin currently 7.8 follow up his CBC tomorrow\ iron studies Give saline nasal spray every 3 hours to prevent epistasis and bacitracin ointment #insulin-dependent diabetes mellitus: will keep him on Novolog and levemir [address] Last on board. #History of gout * Continue home dose of allopurinol DVT prophylaxis: mechanical code: full code diet: chf and consistent carbohydrate Problem List: 1. Acute and chronic respiratory failure with hypoxia 2. History of paroxysmal atrial tachycardia 3. CAD (coronary artery disease) 4. Gout 5. IDDM (insulin dependent diabetes mellitus) Pain Ratin Pain Location: n/a Pain Goal: Remain pain free Pain Plan: tylenol Tomorrow's Labs & Rationales: bep cbc DVT/Prophylaxis: pharmacological
--- NOTE | 2016-09-03 07:34 | PN- Diabetes ---
Assessment/Plan Assessment: The patient had a bad episode last night. When he got up to go to the bathroom he developed a very rapid heartbeat. This lasted about 5 minutes. He felt very short of breath. Blood sugars yesterday were starting to improve. 308 before breakfast, 365 before lunch, 294 before dinner, and 253 at bedtime. This morning his fingerstick blood sugar is 217. Thus there is a trend downward. Patient is still on prednisone 40 mg once a day in the a.m. He states he is scheduled for cardioversion today. Thyroid function tests were repeated and his TSH is in the good range at 2.56. Plan: Suggest continue the present insulin. His blood sugars seem to be coming down. Subjective Subjective: Feels short of breath Review of Systems Constitutional: Denies: chills, fever. Cardiovascular: Denies: chest pain. Respiratory: Reports: short of breath, wheezing. Gastrointestinal: Denies: abdominal pain, nausea. Skin: Reports: no symptoms. Objective Last 24 Hrs of Vital Signs/I&O Vital Signs Date Time Temp Pulse Resp B/P B/P Pulse O2 O2 Flow FiO2 Mean Ox Delivery Rate 09/03 0537 97.8 93 20 130/60 93 Nasal 2.0L Cannula 09/03 0000 Venti Mask 40% 09/02 2216 97.3 103 20 136/60 94 Nasal 2.0L Cannula 09/03 2155 112 136/60 09/02 2005 94 Venti Mask 30% 09/02 1702 101 09/02 1600 93 Venti Mask 30% 09/02 1455 97.7 88 18 132/64 94 Nasal 2.5L Cannula 09/02 1018 96 Nasal 2.5L Cannula 09/02 0847 84 128/60 09/02 0847 84 128/60 09/02 0800 94 Nasal 2.5L Cannula Intake & Output 09/03 0800 09/03 0000 09/02 1600 Intake Total 450 450 Output Total 250 350 500 Balance -250 100 -50 Intake, Oral 450 450 Output, Urine 250 350 500 Vital Signs Date Time Temp Pulse Resp B/P B/P Pulse O2 O2 Flow FiO2 Mean Ox Delivery Rate 09/03 0537 97.8 93 20 130/60 93 Nasal 2.0L Cannula 09/03 0000 Venti Mask 40% 09/02 2216 97.3 103 20 136/60 94 Nasal 2.0L Cannula 09/02 2156 112 136/60 09/02 2005 94 Venti Mask 30% 09/02 1702 101 09/02 1600 93 Venti Mask 30% 09/02 1455 97.7 88 18 132/64 94 Nasal 2.5L Cannula 09/02 1018 96 Nasal 2.5L Cannula 09/02 0847 84 128/60 09/02 0847 84 128/60 09/02 0800 94 Nasal 2.5L Cannula Intake & Output 09/03 0800 09/03 0000 09/02 1600 Intake Total 450 450 Output Total 250 350 500 Balance -250 100 -50 Intake, Oral 450 450 Output, Urine 250 350 500 Physical Exam General Appearance: alert, awake Head: normal appearance Neck: normal inspection Cardiovascular: regular rate/rhythm Abdomen: normal bowel sounds Extremities: normal inspection Current Medications: Current Medications Sig/Clare Start time Last Medication Dose Route Stop Time Status Admin Acetaminophen 650 MG Q6P PRN 08/29 0930 AC PO Albuterol Sulfate 3 ML BID 08/31 2200 AC 09/02 INH 1956 Allopurinol 300 MG DAILY 08/29 1000 AC 09/02 PO 0846 Amiodarone HCl 200 MG TID 09/01 1000 AC 09/02 PO 2156 Budesonide/ 2 PUF BID 08/29 1000 AC 09/02 Formoterol Fumarate INH 2157 Diltiazem HCl 120 MG BID 08/31 2200 AC 09/02 PO 2156 Insulin Aspart 0 AT BEDTIME 09/01 2200 AC 09/02 CO 2155 Insulin Aspart 0 TIDAC 09/01 1700 AC 09/02 SC 1702 Insulin Detemir 10 UNITS BID 09/03 1000 AC SC Insulin Detemir 6 UNITS BID 09/01 1427 DC 09/02 CO 2156 Lactobacillus 1 CAP BID 08/29 1000 AC 09/02 Acidophilus PO 2156 Magnesium Oxide 400 MG DAILY 08/29 1000 AC 09/02 PO 0846 Oxycodone HCl 5 MG Q6PRN PRN 08/29 0930 AC PO Pravastatin Sodium 80 MG DAILY 08/29 1000 AC 09/02 PO 0846 Prednisone 40 MG DAILY 09/02 1000 AC 09/02 PO 0846 Rivaroxaban 15 MG DAILY 08/29 1000 AC 09/02 PO 0847 Sodium Chloride 2 SPRAY Q3P PRN 09/01 1530 AC 09/01 REGIS 1729 Tamsulosin HCl 0.4 MG DAILY 08/29 1000 AC 09/02 PO 0847 Tiotropium [place] 1 PUF DAILY 08/29 1000 AC 09/02 INH 0847 Tramadol HCl 50 MG Q6P PRN 08/29 0930 AC PO Findings Pertinent Lab/[place] Results: Laboratory Tests 09/03 0620 Chemistry Sodium Pending Potassium Pending Chloride Pending Carbon Dioxide Pending Anion Gap Pending BUN Pending Creatinine Pending BUN/Creatinine Ratio Pending Hematology CBC w Diff Pending WBC Pending RBC Pending Hgb Pending Hct Pending MCV Pending MCH Pending RDW Pending Plt Count Pending MPV Pending PUBS MCHC Pending
[2016-09-03 08:26] LABS: ABSOLUTE BASOPHIL COUNT 0 /CUMM (0.0-0.2); ABSOLUTE EOSINOPHIL COUNT 0.1 /CUMM (0.0-0.7); ABSOLUTE GRANULOCYTE CT 11.2 /CUMM (1.4-6.5); ABSOLUTE LYMPH COUNT 0.4 /CUMM (1.2-3.4); ABSOLUTE MONOCYTE COUNT 0.5 /CUMM (0.10-0.60); BASOPHIL % 0 % (0.0-2.0); EOSINOPHIL % 0.7 % (0-5); HEMATOCRIT 26.4 % (42-52); MEAN CORPUSCULAR HGB 26.4 PG (27.0-31.0); MEAN CORPUSCULAR HGB CONC 32.4 G/DL (33.0-37.0); MEAN CORPUSCULAR VOLUME 81.5 FL (80.0-94.0); MEAN PLATELET VOLUME 7.6 FL (7.4-10.4); PLATELET COUNT 353 /CUMM (130-400); RBC DISTRIBUTION WIDTH 18.5 % (11.5-14.5); RED BLOOD CELL CT 3.24 /CUMM (4.70-6.10)
[2016-09-03 09:24] LABS: WHITE BLOOD CELL COUNT 12.1 /CUMM (4.8-10.8)
--- NOTE | 2016-09-03 09:53 | PN- Pulmonary ---
Subjective HPI/Critical Care Issues: The patient had a bad episode last night. When he got up to go to the bathroom he developed a very rapid heartbeat. This lasted about 5 minutes. He felt very short of breath. Objective Current Medications: Current Medications Sig/Clare Start time Last Medication Dose Route Stop Time Status Admin Acetaminophen 650 MG Q6P PRN 08/29 0930 AC PO Albuterol Sulfate 3 ML BID 08/31 2200 AC 09/03 INH 0758 Allopurinol 300 MG DAILY 08/29 1000 AC 09/02 PO 0846 Amiodarone HCl 200 MG TID 09/01 1000 AC 09/02 PO 2156 Budesonide/ 2 PUF BID 08/29 1000 AC 09/02 Formoterol Fumarate INH 2157 Diltiazem HCl 120 MG BID 08/31 2200 AC 09/02 PO 2156 Insulin Aspart 0 AT BEDTIME 09/01 2200 DC 09/02 SC 2155 Insulin Aspart 0 TIDAC 09/01 1700 AC 09/02 SC 1702 Insulin Detemir 10 UNITS BID 09/03 1000 AC SC Insulin Detemir 6 UNITS BID 09/01 1427 DC 09/02 SC 2156 Insulin Human Regular 0 Q6 09/03 0803 AC 09/03 SC 0817 Lactobacillus 1 CAP BID 08/29 1000 AC 09/02 Acidophilus PO 2156 Magnesium Oxide 400 MG DAILY 08/29 1000 AC 09/02 PO 0846 Oxycodone HCl 5 MG Q6PRN PRN 08/29 0930 AC PO Pravastatin Sodium 80 MG DAILY 08/29 1000 AC 09/02 PO 0846 Prednisone 40 MG DAILY 09/02 1000 AC 09/02 PO 0846 Rivaroxaban 15 MG DAILY 08/29 1000 AC 09/02 PO 0847 Sodium Chloride 2 SPRAY Q3P PRN 09/01 1530 AC 09/01 REGIS 1729 Tamsulosin HCl 0.4 MG DAILY 08/29 1000 AC 09/02 PO 0847 Tiotropium [place] 1 PUF DAILY 08/29 1000 AC 09/02 INH 0847 Tramadol HCl 50 MG Q6P PRN 08/29 0930 AC PO Vital Signs & I&O Last 24 Hrs of Vitals and I&O: Vital Signs Date Time Temp Pulse Resp B/P B/P Pulse O2 O2 Flow FiO2 Mean Ox Delivery Rate 09/03 0820 97 Nasal 2.0L Cannula 09/03 0800 Nasal 2.5L Cannula 09/03 0637 97.8 93 20 130/60 93 Nasal 2.0L Cannula 09/03 0000 Venti Mask 40% 09/02 2217 97.3 103 20 136/60 94 Nasal 2.0L Cannula 09/02 2156 112 136/60 09/02 2005 94 Venti Mask 30% 09/02 1702 101 09/02 1600 93 Venti Mask 30% 09/02 1455 97.7 88 18 132/64 94 Nasal 2.5L Cannula 09/02 1018 96 Nasal 2.5L Cannula Intake & Output 09/03 1600 09/03 0800 09/03 0000 Intake Total 450 Output Total 250 350 Balance -250 100 Intake, Oral 450 Output, Urine 250 350 Laboratory Tests 09/03 09/02 0620 0705 Chemistry Sodium (137 - 145 mmol/L) 133 L 135 L Potassium (3.5 - 5.1 mmol/L) 4.0 3.9 Chloride (98 - 107 mmol/L) 97 L 98 Carbon Dioxide (22 - 30 mmol/L) 27 25 Anion Gap (5 - 16) 9 12 BUN (9 - 20 mg/dL) 60 H 60 H Creatinine (0.7 - 1.2 mg/dL) 1.8 H 1.9 H Estimated GFR (>60 ml/min) 37 L 35 L BUN/Creatinine Ratio (7 - 25 %) 33.3 H 31.6 H Hematology CBC w Diff NO MAN DIFF REQ NO MAN DIFF REQ WBC (4.8 - 10.8 /CUMM) 12.1 H 8.9 RBC (4.70 - 6.10 /CUMM) 3.24 L 3.12 L Hgb (14.0 - 18.0 G/DL) 8.6 L 8.3 L Hct (42 - 52 %) 26.4 L 25.4 L MCV (80.0 - 94.0 FL) 81.5 81.2 MCH (27.0 - 31.0 PG) 26.4 L 26.4 L RDW (11.5 - 14.5 %) 18.5 H 18.2 H Plt Count (130 - 400 /CUMM) 353 316 MPV (7.4 - 10.4 FL) 7.6 7.6 Gran % (42.2 - 75.2 %) 92.0 H 95.3 H Lymphocytes % (20.5 - 51.1 %) 3.1 L 2.7 L Monocytes % (1.7 - 9.3 %) 4.2 2.0 Eosinophils % (0 - 5 %) 0.7 0 Basophils % (0.0 - 2.0 %) 0 L 0 L Absolute Granulocytes (1.4 - 6.5 /CUMM) 11.2 H 8.4 H Absolute Lymphocytes (1.2 - 3.4 /CUMM) 0.4 L 0.2 L Absolute Monocytes (0.10 - 0.60 /CUMM) 0.5 0.2 Absolute Eosinophils (0.0 - 0.7 /CUMM) 0.1 0 Absolute Basophils (0.0 - 0.2 /CUMM) 0 0 PUBS MCHC (33.0 - 37.0 G/DL) 32.4 L 32.5 L Impression/Plan Impression/Plan Impression/Plan: Physical Exam General Appearance Alert, Oriented X3 Skin No Rashes, No Breakdown Neck Supple, No JVD Cardiovascular irregularly irregular rate and rhythm Lungs bilateral inspiratory wheeze on exam Abdomen Normal Bowel Sounds, Soft Neurological Normal Gait, Normal Speech Extremities 2 + pitting edema in lower extremities CT CHEST REVIEWED FROM 08/31 MPRESSION: 1. Moderate pulmonary emphysema and chronic bronchial wall thickening (likely chronic bronchitis) in both lungs. 2. Chest CT imaging findings, combined with a review of recent chest radiographs, suggests significant improvement in previously noted interstitial pulmonary edema. There is some residual subtle groundglass opacity in lower lung zones and small pleural effusions (right larger than left) associated with compressive atelectasis in the bases. No overt pneumonia. 3. Cardiomegaly and atherosclerotic disease of coronary arteries with right atrial and biventricular pacemaker in place. 4. Mild mediastinal lymphadenopathy, likely reactive in nature. 5. Atherosclerotic disease of the thoracic aorta and stable appearance of a focal aneurysmal outpouching of the left posterolateral wall of the descending thoracic aorta (image 283, series 4). IMPRESSION This is a gentleman with paroxysmal atrial fibrillation on xeralto, significant COPD, biventricular pacer for a previous wide-complex rhythm, previous coronary artery disease, significant pulmonary hypertension, mitral regurgitation, diabetes, previous gout and osteoarthritis, currently on 24-hour oxygen with 40- pack-year smoking history who has quit smoking few yrs ago now here * IMproving hypoxemia due to acute pulmonary edema with rapid atrial fibrillation with acute diastolic heart failure with recent intubation from acute diastolic heart failure. * No clinical evidence suggestive of active bacterial infection in the lung and patient recently did have significant C. difficile colitis * Significant COPD with exacerbation compounded by chf * Recent Cdiff colitis now status post antibiotic therapy no diarrhea * Recent bilateral epistaxis with nasal packing, was on abx for this, now better. PT continues to have sig anemia * Sig COPD with a right middle lobe bronchiectasis from his previous pneumonia with MRSA colonization. He also has been wheezing consistent with cardiac asthma with COPD exacerbation related to fluid overload * Paroxysmal atrial fibrillation with anticoagulation before, on amiodarone with biventricular pacer. Pt failed electrical cardioversion on 08/31, now with sig tacy episode on excertion * Recent bronchiolitis with Previous small lung nodules * Chronic kidney disease with atrophic kidney. * Hypertension, gout, previous high blood sugar, previous gout. * Mild aortic aneurysm * BPH on Flomax RECOMMENDATION Rtdjn-xnl-[id number] nebulizer HOld lasix if able Cardio following with plan for cardioversion if he does not improve Strict sugar control PRednisone 30 mg and wean Reduce albuterol neb dose by half (1.25mg instead of 2.5) and use only prn if he is wheezing Saline nasal spray q 3 hrs prn Prognosis guarded as he has end-stage COPD and recurrent heart failure
--- NOTE | 2016-09-03 13:09 | PN- Cardiology ---
Subjective Subjective: The patient is complaining of intermittent difficulty in breathing. However right now he is pretty comfortable. He has no complaints of chest pain or shortness of breath at rest. He is on 600 mg a day of amiodarone. He is still in atrial fibrillation on the monitor with a heart rate of around 100. He is on a tapering dose of prednisone Objective Vital Signs and I&Os Vital Signs Date Time Temp Pulse Resp B/P B/P Pulse O2 O2 Flow FiO2 Mean Ox Delivery Rate 09/03 1055 108 152/70 09/03 1055 108 152/70 09/03 0820 97 Nasal 2.0L Cannula 09/03 0800 Nasal 2.5L Cannula 09/03 0637 97.8 93 20 130/60 93 Nasal 2.0L Cannula 09/03 0000 Venti Mask 40% 09/02 2217 97.3 103 20 136/60 94 Nasal 2.0L Cannula 09/02 2156 112 136/60 09/02 2005 94 Venti Mask 30% 09/02 1702 101 09/02 1600 93 Venti Mask 30% 09/02 1455 97.7 88 18 132/64 94 Nasal 2.5L Cannula Intake & Output 09/03 1600 09/03 0800 09/03 0000 09/02 1600 09/02 0800 09/02 0000 Intake Total 450 450 120 450 Output Total 250 350 500 450 250 Balance -250 100 -50 -330 200 Intake, Oral 450 450 120 450 Number 0 Bowel Movements Output, Urine 250 350 500 450 250 Physical Exam: He is in no distress HEENT exam is normal Neck veins not distended Chest decreased breath sounds minimal wheezing Abdomen benign Extremities no edema Current Medications: Current Medications Sig/Clare Start time Last Medication Dose Route Stop Time Status Admin Acetaminophen 650 MG Q6P PRN 08/29 0930 AC PO Albuterol Sulfate 3 ML BID 08/31 2200 AC 09/03 INH 0758 Allopurinol 300 MG DAILY 08/29 1000 AC 09/03 PO 1057 Amiodarone HCl 200 MG TID 09/01 1000 AC 09/03 PO 1055 Budesonide/ 2 PUF BID 08/29 1000 AC 09/03 Formoterol Fumarate INH 1059 Diltiazem HCl 120 MG BID 08/31 2200 AC 09/03 PO 1055 Insulin Aspart 0 TIDAC 09/03 1200 AC SC Insulin Aspart 0 AT BEDTIME 07/15 2200 MA 09/02 SC 2155 Insulin Aspart 0 TIDAC 09/01 1700 MA 09/02 NC 1702 Insulin Detemir 10 UNITS BID 09/03 1000 AC 09/03 SC 1104 Insulin Detemir 6 UNITS BID 09/01 1427 MA 09/02 NC 2156 Insulin Human Regular 0 Q6 09/03 0803 09/03 NC 0817 Lactobacillus 1 CAP BID 08/29 1000 AC 09/03 Acidophilus PO 1057 Magnesium Oxide 400 MG DAILY 08/29 1000 AC 09/03 PO 1055 Oxycodone HCl 5 MG Q6PRN PRN 08/29 0930 AC PO Pravastatin Sodium 80 MG DAILY 08/29 1000 AC 09/03 PO 1056 Prednisone 10 MG DAILY 09/10 1000 AC PO 09/12 1001 Prednisone 20 MG DAILY 09/07 1000 AC PO 09/09 1001 Prednisone 30 MG DAILY 09/04 1000 CAN PO Prednisone 30 MG DAILY 09/04 1000 AC PO 09/06 1001 Prednisone 40 MG DAILY 09/02 1000 DC 09/03 PO 1057 Rivaroxaban 15 MG DAILY 08/29 1000 AC 09/03 PO 1056 Sodium Chloride 2 SPRAY Q3P PRN 09/01 1530 AC 09/03 REGIS 1059 Tamsulosin HCl 0.4 MG DAILY 08/29 1000 AC 09/03 PO 1055 Tiotropium [place] 1 PUF DAILY 08/29 1000 AC 09/03 INH 1058 Tramadol HCl 50 MG Q6P PRN 08/29 0930 AC PO Results Last 48 Hrs of Labs/Mics: Laboratory Tests 09/03/16 0620: Anion Gap 9, Estimated GFR 37 L, BUN/Creatinine Ratio 33.3 H, CBC w Diff NO MAN DIFF REQ, RBC 3.24 L, MCV 81.5, MCH 26.4 L, RDW 18.5 H, MPV 7.6, Gran % 92.0 H, Lymphocytes % 3.1 L, Monocytes % 4.2, Eosinophils % 0.7, Basophils % 0 L, Absolute Granulocytes 11.2 H, Absolute Lymphocytes 0.4 L, Absolute Monocytes 0.5, Absolute Eosinophils 0.1, Absolute Basophils 0, PUBS MCHC 32.4 L 09/02/16 0705: Anion Gap 12, Estimated GFR 35 L, BUN/Creatinine Ratio 31.6 H, CBC w Diff NO MAN DIFF REQ, RBC 3.12 L, MCV 81.2, MCH 26.4 L, RDW 18.2 H, MPV 7.6, Gran % 95.3 H, Lymphocytes % 2.7 L, Monocytes % 2.0, Eosinophils % 0, Basophils % 0 L, Absolute Granulocytes 8.4 H, Absolute Lymphocytes 0.2 L, Absolute Monocytes 0.2, Absolute Eosinophils 0, Absolute Basophils 0, PUBS MCHC 32.5 L Assessment/Plan Assessment/Plan Rob remains in atrial fibrillation, although he transiently converted to sinus rhythm with cardioversion. However, this did not hold. He is on a higher dose of Cardizem and amiodarone. However, he remains in atrial fibrillation. His respiratory status is slowly improving. I recommend continuing him on the same medication. I think he is stable enough for discharge from a cardiac standpoint. When he is able to go home from a respiratory standpoint I think he can be discharged on current regimen except I would increase his amiodarone to 400 mg twice a day on discharge. I would plan to try and cardiovert him in about 2 weeks after he has had a sufficient amiodarone load. We will do this as an outpatient. Continue telemetry? Yes
[2016-09-03] MEDS ORDERED: PREDNISONE10 M2 PO (13:43)
[2016-09-03] MEDS ORDERED: AMIODARONE HCL400 M1 PO ×2 (13:43→13:57)
[2016-09-03] MEDS ORDERED: ALBUTEROL1.25 MG/1 INH/SOL (13:44)
--- NOTE | 2016-09-03 13:48 | NUR ---
13:30 PM NOTIFIED BY CURRICULUM COORDINATOR PT HAD ARRYTHMIA THAT ALARMED VTACH. UPON ASSESSMENT PT IS VERY ANXIOUS AFTER SPEAKING TO PATIENT FINANCIAL SERVICES COORDINATOR. PT CONCERNED ABOUTBEING DISCHARGED TODAY. DENIES CP BUT FEEL, "FLUTTERING IN CHEST." DR THIBODEAUX AT BEDSIDE. PT STATES, "I FEEL BETTER NOW. THE FLUTTERING WENT AWAY ON ITS OWN." 90% O2 ON 40% VENTIMASK USED PRN. HR 110S-130S. DR CABRERA MADE AWARE. UPON ASSESSMENT ARRYTHMIA APPEARS TO BE A BUNDLE BRANCH BLOCK SWITCH. STRIP PLACED IN CHART. WILL CONTINUE TO MONITOR.
--- NOTE | 2016-09-03 13:53 | Patient Discharge Instructions ---
Discharge Instructions General Discharge Information You were seen/treated for: ACUTE ON CHRONIC RESPIRATORY FAILURE DUE TO COPD EXACERBATION AND HEART FAILURE Special Instructions: 1. PLEASE FOLLOW UP WITH YOUR WINDOWS AND DOORS INSTALLER DR BLAIR IN 1 WEEK AND PLAN FOR CARDIOVERSION. 2. PLEASE F/U WITH YOUR ASSOCIATE PROJECT MANAGER WITHIN 2 WEEK OF DISCHARGE. 3. PLEASE FOLLOW UP WITH YOUR PCP WITHIN 7 DAYS OF DISCHARGE. Diet Recommended Diet: Diabetic, Regular no added salt Activity Full Activity/No Limits: Yes ( TOLERATED) Acute Coronary Syndrome Inclusion Criteria At DC or during hospital stay patient has or had the following: ACS DIAGNOSIS No Discharge Core Measures Meds if any: Prescribed or Continued at Discharge Meds if any: NOT Prescribed or Continued at Discharge Congestive Heart Failure Inclusion Criteria At DC or during hospital stay patient has or had the following: CHF DIAGNOSIS Yes Discharge Core Measures Meds if any: Prescribed or Continued at Discharge Meds if any: NOT Prescribed or Continued at Discharge Cerebrovascular accident Inclusion Criteria At DC or during hospital stay patient has or had the following: CVA/TIA Diagnosis No Discharge Core Measures Meds if any: Prescribed or Continued at Discharge Meds if any: NOT Prescribed or Continued at Discharge Venous thromboembolism Inclusion Criteria VTE Diagnosis No VTE Type NONE VTE Confirmed by (Test) NONE Discharge Core Measures - Per Current guidelines, there needs to be overlap - treatment for the first 5 days of Warfarin therapy. - If discharged on Warfarin prior to 5 days of - overlap therapy, the patient will need to be - assessed for post discharge needs including - *Post discharge parental anticoagulation - *Warfarin and/or parental anticoagulation education - *Follow up date to check INR post discharge At least 5 days overlap therapy as Inpatient No Meds if any: Prescribed or Continued at Discharge Note: Overlap Therapy is Warfarin and Anticoagulant Meds if any: NOT Prescribed or Continued at Discharge
[2016-09-03 14:36] VITALS: BP 146/68
--- NOTE | 2016-09-03 17:26 | RADIOLOGY REPORT ---
EXAMINATION: CHEST 1 VIEW CLINICAL INFORMATION: Pulmonary edema. Shortness of breath. COMPARISON: 08/31/2016. TECHNIQUE: An AP view of the chest is provided. FINDINGS: The cardiac silhouette is stable. Pacer leads are in unchanged position. There is a [id number] right pleural effusion with associated airspace disease. There is a small left pleural effusion. The osseous structures are stable. IMPRESSION: Right greater than left bilateral pleural effusions with associated airspace disease. Recommendation is for a followup chest series to be obtained following treatment and/or resolution of symptoms to assure resolution of this appearance.
--- NOTE | 2016-09-03 18:38 | PN- Att Addend ---
Attending Addendum Attending Brief Note Patient states is so weak that he cannot even get to the bathroom it seems a little down today his vital signs are stable and no changes on physical. Check with cardiology see when the next procedure should be. Also have physical therapy checked the patient he may need short-term rehabilitation Intake & Output 09/03 0400 09/02 0400 09/01 0400 Intake Total 600 450 570 450 420 240 Output Total 650 350 950 250 800 350 Balance -50 100 -380 200 -380 -110 Intake, Oral 600 450 570 450 420 240 Number 0 Bowel Movements Output, Urine 650 350 950 250 800 350 Laboratory Tests 09/03/16 1650: pH 7.31 L, pCO2 53 H, pO2 82, HCO3 26, ABG O2 Sat (Measured) 93.0 L, Carboxyhemoglobin 0.2 L, O2 Concentration % 55%, O2 Delivery Method VM, Phlebotomy Draw Site RIGHT RADIAL 09/03/16 0620: Anion Gap 9, Estimated GFR 37 L, BUN/Creatinine Ratio 33.3 H, CBC w Diff NO MAN DIFF REQ, RBC 3.24 L, MCV 81.5, MCH 26.4 L, RDW 18.5 H, MPV 7.6, Gran % 92.0 H, Lymphocytes % 3.1 L, Monocytes % 4.2, Eosinophils % 0.7, Basophils % 0 L, Absolute Granulocytes 11.2 H, Absolute Lymphocytes 0.4 L, Absolute Monocytes 0.5, Absolute Eosinophils 0.1, Absolute Basophils 0, PUBS MCHC 32.4 L 09/02/16 0705: Anion Gap 12, Estimated GFR 35 L, BUN/Creatinine Ratio 31.6 H, CBC w Diff NO MAN DIFF REQ, RBC 3.12 L, MCV 81.2, MCH 26.4 L, RDW 18.2 H, MPV 7.6, Gran % 95.3 H, Lymphocytes % 2.7 L, Monocytes % 2.0, Eosinophils % 0, Basophils % 0 L, Absolute Granulocytes 8.4 H, Absolute Lymphocytes 0.2 L, Absolute Monocytes 0.2, Absolute Eosinophils 0, Absolute Basophils 0, PUBS MCHC 32.5 L 09/01/16 0700: Anion Gap 12, Estimated GFR 33 L, BUN/Creatinine Ratio 31.5 H, TSH 2.560, Thyroxine (T4) 5.7, CBC w Diff NO MAN DIFF REQ, RBC 2.97 L, MCV 80.6, MCH 26.1 L, RDW 18.1 H, MPV 7.5, Gran % 94.6 H, Lymphocytes % 2.6 L, Monocytes % 2.7, Eosinophils % 0.1, Basophils % 0 L, Absolute Granulocytes 10.4 H, Absolute Lymphocytes 0.3 L, Absolute Monocytes 0.3, Absolute Eosinophils 0, Absolute Basophils 0, PUBS MCHC 32.5 L Microbiology 09/03 1711 URINE ROUT: Urine Culture - COLB Vital Signs Date Time Temp Pulse Resp B/P B/P Pulse O2 O2 Flow FiO2 Mean Ox Delivery Rate 09/03 1700 100 96 09/03 1650 115 164/80 09/03 1624 92 Venti Mask 55% 09/03 1556 110 146/68 09/03 1443 Nasal 2.0L Cannula 09/03 1436 96.1 110 20 146/68 95 Nasal Cannula 09/03 1424 Nasal 2.0L Cannula 09/03 1055 108 152/70 09/03 1055 108 15270 Intake & Output 09/03 1600 Intake Total 600 Output Total 400 Balance 200 Intake, Oral 600 Output, Urine 400
--- NOTE | 2016-09-03 20:25 | NUR ---
16:20 PM- NOTIFIED BY RT PT WAS DIAPHORETIC & SOB. UPON ASSESSMENT PT WAS KEENE IN COLOR. VS FOLLOWS: 164/80 T 97.0 TEMPORAL P 100-154 RR 28. PT C/O WEAKNESS/DENIES CP. EQUAL GRASPS & NO FACIAL DROOP. DR CABRERA MADE AWARE AND AT BEDSIDE FOR EVAL. IV LASIX & SOLUMEDROL GIVEN. ABGs & CXR DONE. UPON AUSCULTATION CRACKLES NOTED THROUGHOUT. PLACED ON BIPAP BY RT. WALTON CATHETER PLACED. 2ND PERIPHERAL LINE #[address] CABRERA WILL REPEAT ABGs IN ONE HOUR TO ASSESS IMPROVEMENT. PT APPEARS TO BE RESTING COMFORTABLY AT THIS TIME.
[2016-09-03 23:03] VITALS: BP 138/78
[2016-09-04 07:28] VITALS: BP 150/72
--- NOTE | 2016-09-04 07:33 | PN- Housestaff ---
Subjective Follow-up For: diastolic hear failure acute hypoxic resp failure acute pulm edema Fatigue afib with rvr Complaints: SOB Tele-Events Since Last Visit: [id number] Subjective: i have personally seen the patient at bed side, he is anxious on nasal oxygen , reports having SOB Review of Systems Constitutional: Reports: malaise, weakness. Cardiovascular: Denies: see HPI. Respiratory: Reports: short of breath. Gastrointestinal: Denies: no symptoms. Genitourinary: Denies: no symptoms. Skin: Denies: no symptoms. Objective Last 24 Hrs of Vital Signs/I&O Vital Signs Date Time Temp Pulse Resp B/P B/P Pulse O2 O2 Flow FiO2 Mean Ox Delivery Rate 09/04 0830 150/72 09/04 0830 150/72 09/04 0800 94 Nasal 3.0L Cannula 09/04 0729 96 Venti Mask 40% 09/04 0728 96.7 109 20 150/72 95 Venti Mask 09/04 0000 94 Venti Mask 40% 09/03 2303 97.8 114 20 138/78 92 09/03 2051 105 145/80 09/03 2044 94 Venti Mask 40% 09/03 2043 90 97 09/03 1700 100 96 09/03 1650 115 164/80 09/03 1624 92 Venti Mask 55% 09/03 1600 100 BIPAP 09/03 1556 110 146/68 09/03 1443 Nasal 2.0L Cannula 09/03 1436 96.1 110 20 146/68 95 Nasal Cannula 09/03 1424 Nasal 2.0L Cannula Intake & Output 09/04 1600 09/04 0800 09/04 0000 Intake Total 100 120 Output Total 900 950 Balance -800 -830 Intake, Oral 100 120 Output, Urine 900 950 Patient 185 lb Weight Physical Exam General Appearance: Alert, Oriented X3, Cooperative, No Acute Distress Skin: No Rashes, No Breakdown, No Significant Lesion Skin Temp/Moisture Exam: Warm/Dry HEENT: Atraumatic, PERRLA, EOMI, Mucous Membr. moist/pink Neck: Supple Cardiovascular: Normal S1, Normal S2, No Murmurs, irregular irregular Lungs: bilateral widespread basilar crepitations Abdomen: Normal Bowel Sounds, Soft, No Tenderness Neurological: Normal Speech, Strength at 5/5 X4 Ext, Normal Tone Extremities: 2+ pitting edema Orders Radiology Findings: Chest x-ray 1. No interval change in moderate right-sided pleural effusion with associated right basilar consolidation. 2. Small left-sided pleural effusion is also suspected, though less well visualized than on prior CT scan. Associated left basilar subsegmental atelectasis is seen. 3. Central vascular congestion without overt pulmonary edema. Assessment/Plan Assessment: 76-year-old gentleman with a past mental history significant for recurrent nosebleeds/epistaxis status post cauterization, atrial fibrillation on Xarelto, coronary artery disease (history of multiple stents), cardiomyopathy status post pacemaker/defibrillator, COPD(on 1 L of oxygen at bedtime), history of MRSA pneumonia June 2016, recently admitted to [facility] due to epistaxis and C. difficile colitis presented to the ED for further evaluation of worsening shortness of breath and cough. # Acute hypoxic respiratory failure: -likely due to pulmonary edema secondary rapid A-fib. -pleural effusion due to heart failure - severe COPD due to acute pulmonary edema with rapid a fib -WBC HIGH is likely due to steroid use rather than infection -continue to Monitor on telemetry floor -Lasix PRN -Continue prednisone 30 and wean -Follow-up blood cultures and sputum cultures -reduce albuterol veb dose by half (1.25 mg) and use only PRN -TRC evaluation . - pulmonology on board # ACUTE DIASTOLIC HEART FAILURE: 2/2 A FIB WITH RVR - continue to monitor on telemetery -lasix PRN for pulm edema - pt can't be kept on lasix due to impaired renal functions #History of paroxysmal atrial fibrillation -currently pt is not stable with bilateral crepitation likely due to pulmonary edema due to a fib -continue cardizem 120 mg BID. -Increase Amiodarone to 200 mg TID as per Dr. Ramirez recommendation _might need another cardioversion after two weeks. -Patient is currently on amiodarone so we are checking a free T4 and TSH level. #History of coronary artery disease status post stents: -Echo done in June 2016:Normal size left ventricle. Mild to moderate concentric left ventricular hypertrophy. Left ventricular systolic function is mildly decreased with estimated ejection fraction 55-60%. There is mild postero- lateral hypokinesis seen -Continue aspirin and statins # History of chronic kidney disease(stage IIIB) Worsening kidney function likely secondary to IV diuresis, hold Lasix. Encouraged by mouth fluids. #Bilateral low extremity Edema: . hold Lasix as his kidney function is deteriorating pt needed an IV lasix push # History of chronic normocytic anemia: Hemoglobin currently 7.8 follow up his CBC tomorrow\ iron studies Give saline nasal spray every 3 hours to prevent epistasis and bacitracin ointment #insulin-dependent diabetes mellitus: will keep him on Novolog and levemir [address] Last on board. #History of gout * Continue home dose of allopurinol DVT prophylaxis: mechanical code: full code diet: chf and consistent carbohydrate Problem List: 1. CAD (coronary artery disease) 2. History of paroxysmal atrial tachycardia 3. Acute and chronic respiratory failure with hypoxia 4. Acute diastolic CHF (congestive heart failure) 5. Gout 6. IDDM (insulin dependent diabetes mellitus) 7. Cardiomyopathy 8. Pulmonary edema 9. Pleural effusion Pain Ratin Pain Location: n/a Pain Goal: Remain pain free Pain Plan: tylenol Tomorrow's Labs & Rationales: cbc bep DVT/Prophylaxis: pharmacological
--- NOTE | 2016-09-04 08:24 | PN- Diabetes ---
Assessment/Plan Assessment: Patient became very upset yesterday when he was told he was going home. He then developed extreme shortness of breath. Blood sugars yesterday were starting to improve. However now the patient's steroids have been increased to 40 mg every 8 hours. His blood sugar this morning was 278. We will need to adjust the patients insulin. . Plan: Suggest increase the patient's Levemir to 14 units twice a day. In addition we need to increase his sliding scale NovoLog before meals. Sliding-scale NovoLog before meals should be 80-150 give 4 units NovoLog, 151-200 give 6 units NovoLog , 201-250 give 8 units NovoLog, 251-300 give 10 units NovoLog, 301-350 give 12 units NovoLog, 351-400 give 14 units NovoLog. A separate bedtime sliding-scale NovoLog should be written. Bedtime sliding- scale NovoLog should be less than 250 give no insulin, 251-300 give 2 units NovoLog, 301-350 give 3 units NovoLog, 351-400 give 4 units NovoLog.
--- NOTE | 2016-09-04 09:56 | PN- Pulmonary ---
Subjective HPI/Critical Care Issues: Anxious Went into acute pulm edema yesterday due to anxiety Fatigue In afib with hR around 101 CXR Pulm edema and effusions due to chf Objective Current Medications: Current Medications Sig/Clare Start time Last Medication Dose Route Stop Time Status Admin Acetaminophen 650 MG Q6P PRN 08/29 0930 AC PO Albuterol Sulfate 3 ML BID 08/31 2200 AC 09/04 INH 0725 Allopurinol 300 MG DAILY 08/29 1000 AC 09/04 PO 0829 Amiodarone HCl 200 MG TID 09/01 1000 AC 09/04 PO 0830 Budesonide/ 2 PUF BID 08/29 1000 AC 09/04 Formoterol Fumarate INH 0830 Diltiazem HCl 5 MG ONCE ONE 09/03 1545 DC 09/03 IV PUSH 09/03 1546 1556 Diltiazem HCl 120 MG BID 08/31 2200 AC 09/04 PO 0830 Furosemide 40 MG ONCE ONE 09/03 2014 DC 09/03 IV 09/03 Furosemide 40 MG ONCE ONE 09/03 1645 DC 09/03 IV PUSH 09/03 1646 1639 Insulin Aspart 2 UNITS ONE TIME ONE 09/03 2130 DC 09/03 CA 09/03 2131 2130 Insulin Aspart 0 TIDAC 09/03 1200 AC 09/04 SC 0826 Insulin Aspart 0 TIDAC 09/01 1700 DC 09/02 CA 1702 Insulin Detemir 10 UNITS BID 09/03 1000 AC 09/04 SC 0826 Insulin Human Regular 0 Q6 09/03 0803 MN 09/03 SC 0817 Ipratropium [place] 2.5 ML Q4P PRN 09/03 1445 AC 09/04 INH 0725 Lactobacillus 1 CAP BID 08/29 1000 AC 09/04 Acidophilus PO 0829 Lorazepam 1 MG Q4P PRN 09/03 1500 AC 09/03 IV 1453 Magnesium Oxide 400 MG DAILY 08/29 1000 AC 09/04 PO 0830 Methylprednisolone 40 MG Q8 09/03 1644 AC 09/04 IV 0540 Oxycodone HCl 5 MG Q6PRN PRN 08/29 0930 AC PO Pravastatin Sodium 80 MG DAILY 08/29 1000 AC 09/04 PO 0829 Prednisone 10 MG DAILY 09/10 1000 CAN PO 09/12 1001 Prednisone 20 MG DAILY 09/07 1000 CAN PO 09/09 1001 Prednisone 30 MG DAILY 09/04 1000 CAN PO Prednisone 30 MG DAILY 09/04 1000 CAN PO 09/06 1001 Prednisone 40 MG DAILY 09/02 1000 DC 09/03 PO 1057 Rivaroxaban 15 MG DAILY 08/29 1000 AC 09/04 PO 0830 Sodium Chloride 2 SPRAY Q3P PRN 09/01 1530 AC 09/03 REGIS 1059 Tamsulosin HCl 0.4 MG DAILY 08/29 1000 AC 09/04 PO 0830 Tiotropium [place] 1 PUF DAILY 08/29 1000 AC 09/04 INH 0829 Tramadol HCl 50 MG Q6P PRN 08/29 0930 AC PO Vital Signs & I&O Last 24 Hrs of Vitals and I&O: Vital Signs Date Time Temp Pulse Resp B/P B/P Pulse O2 O2 Flow FiO2 Mean Ox Delivery Rate 09/04 0830 150/72 09/04 0830 150/72 09/04 0800 94 Nasal 3.0L Cannula 09/04 0729 96 Venti Mask 40% 09/04 0728 96.7 109 20 150/72 95 Venti Mask 09/04 0000 94 Venti Mask 40% 09/03 2303 97.8 114 20 138/78 92 09/03 2051 105 145/80 09/03 2044 94 Venti Mask 40% 09/03 2043 90 97 09/03 1700 100 96 09/03 1650 115 164/80 09/03 1624 92 Venti Mask 55% 09/03 1600 100 BIPAP 09/03 1556 110 146/68 09/03 1443 Nasal 2.0L Cannula 09/03 1436 96.1 110 20 146/68 95 Nasal Cannula 09/03 1424 Nasal 2.0L Cannula 09/03 1055 108 152/70 09/03 1055 108 152/70 Intake & Output 09/04 1600 09/04 0800 09/04 0000 Intake Total 100 120 Output Total 900 950 Balance -800 -830 Intake, Oral 100 120 Output, Urine 900 950 Patient 185 lb Weight Impression/Plan Impression/Plan Impression/Plan: Physical Exam General Appearance Alert, Oriented X3 Skin No Rashes, No Breakdown Neck Supple, No JVD Cardiovascular irregularly irregular rate and rhythm Lungs bilateral inspiratory wheeze on exam Abdomen Normal Bowel Sounds, Soft Neurological Normal Gait, Normal Speech Extremities 2 + pitting edema in lower extremities CT CHEST REVIEWED FROM 08/31 MPRESSION: 1. Moderate pulmonary emphysema and chronic bronchial wall thickening (likely chronic bronchitis) in both lungs. 2. Chest CT imaging findings, combined with a review of recent chest radiographs, suggests significant improvement in previously noted interstitial pulmonary edema. There is some residual subtle groundglass opacity in lower lung zones and small pleural effusions (right larger than left) associated with compressive atelectasis in the bases. No overt pneumonia. 3. Cardiomegaly and atherosclerotic disease of coronary arteries with right atrial and biventricular pacemaker in place. 4. Mild mediastinal lymphadenopathy, likely reactive in nature. 5. Atherosclerotic disease of the thoracic aorta and stable appearance of a focal aneurysmal outpouching of the left posterolateral wall of the descending thoracic aorta (image [id number], series 4). IMPRESSION This is a gentleman with paroxysmal atrial fibrillation on xeralto, significant COPD, biventricular pacer for a previous wide-complex rhythm, previous coronary artery disease, significant pulmonary hypertension, mitral regurgitation, diabetes, previous gout and osteoarthritis, currently on 24-hour oxygen with 40- pack-year smoking history who has quit smoking few yrs ago now here * Episode of PULM edema leading to resp failure (not copde) last night * PT with severe copd with worsening due to acute pulmonary edema with rapid atrial fibrillation with acute diastolic heart failure with recent intubation from acute diastolic heart failure. * Effusion due to chf no evidence of empyema etc * No clinical evidence suggestive of active bacterial infection in the lung and patient recently did have significant C. difficile colitis * Significant COPD WIth wheezing compounded by chf * Recent Cdiff colitis now status post antibiotic therapy no diarrhea * Recent bilateral epistaxis with nasal packing, was on abx for this, now better. PT continues to have sig anemia * Sig COPD with a right middle lobe bronchiectasis from his previous pneumonia with MRSA colonization. He also has been wheezing consistent with cardiac asthma with COPD exacerbation related to fluid overload * Paroxysmal atrial fibrillation with anticoagulation before, now on amiodarone with biventricular pacer. Pt failed electrical cardioversion on 08/31, now with sig tacy episode on excertion * Recent bronchiolitis with Previous small lung nodules * Chronic kidney disease with atrophic kidney. * Hypertension, gout, previous high blood sugar, previous gout. * Mild aortic aneurysm * BPH on Flomax RECOMMENDATION [id number] nebulizer Lasix prn DC iv steroids change back to prednisone 30 May need ep eval Cardio following with plan for cardioversion if he does not improve Strict sugar control Reduce albuterol neb dose by half (1.25mg instead of 2.5) and use only prn if he is wheezing Saline nasal spray q 3 hrs prn Prognosis guarded as he has end-stage COPD and recurrent heart failure
--- NOTE | 2016-09-04 11:40 | RADIOLOGY REPORT ---
EXAMINATION: XR CHEST CLINICAL INFORMATION: Hypoxia. Bilateral pleural effusions. COMPARISON: Several prior chest x-rays, most recent of which is dated 09/03/2016. TECHNIQUE: AP and lateral views of the chest were obtained. FINDINGS: Right atrial pacer lead and right ventricular AICD lead again seen, unchanged. Cardiomediastinal silhouette is borderline enlarged, unchanged. Calcification of the aortic arch is seen. There is continued hazy opacity in the right lung base, unchanged from prior exam. Central vascular congestion is noted without overt pulmonary edema. Bilateral pleural effusions are seen, right greater than left. No pneumothorax is seen. Bony structures are unremarkable. IMPRESSION: 1. No interval change in moderate right-sided pleural effusion with associated right basilar consolidation. 2. Small left-sided pleural effusion is also suspected, though less well visualized than on prior CT scan. Associated left basilar subsegmental atelectasis is seen. 3. Central vascular congestion without overt pulmonary edema.
--- NOTE | 2016-09-04 12:29 | NUR ---
PT BLOOD SUGAR 303. GAVE 12 UNITS NOVOLOG IN RT ARM. EMAR NOT ALLOWING DOCUMENTATION IT STATES THE ROBOT IS EDITING. CALLED PHARMACY WHO STATES IT'S AN I.S. ISSUE AND THEY'RE AWARE.
--- NOTE | 2016-09-04 13:07 | PN- Att Addend ---
Attending Addendum Attending Brief Note Patient still very anxious, last evening he went into acute pulmonary edema which she says was triggered by his anxiety and not knowing what the plans are. Patient states still that his a week and that needs rehabilitation. Patient going for a chest x-ray this morning. Appreciate Dr. Shell's input and recommendations and also will check with cardiology see if we need to adjust some of his medications, he still in atrial fibrillation with a ventricular rate is not fast patient is another PT reevaluation and then let the insurance company know that he needs rehabilitation and he cannot go home and patient goes into congestive heart failure very easily 24 TOTALS 09/04 0000 09/03 0000 Intake Total 720 1020 Output Total 1600 1300 Balance -880 -280 Intake, Oral 720 1020 Number 0 Bowel Movements Output, Urine 1600 1300 Patient 185 lb Weight Current Medications Sig/Clare Start time Last Medication Dose Route Stop Time Status Admin Acetaminophen 650 MG Q6P PRN 08/29 0930 AC PO Albuterol Sulfate 3 ML BID 08/31 2200 AC 09/04 INH 0725 Allopurinol 300 MG DAILY 08/29 1000 AC 09/04 PO 0829 Amiodarone HCl 200 MG TID 09/01 1000 AC 09/04 PO 0830 Budesonide/ 2 PUF BID 08/29 1000 AC 09/04 Formoterol Fumarate INH 0830 Diltiazem HCl 5 MG ONCE ONE 09/03 1545 DC 09/03 IV PUSH 09/03 1546 1556 Diltiazem HCl 120 MG BID 08/31 2200 AC 09/04 PO 0830 Furosemide 40 MG ONCE ONE 09/03 2014 DC 09/03 IV 09/03 Furosemide 40 MG ONCE ONE 09/03 1645 DC 09/03 IV PUSH 09/03 1646 1639 Insulin Aspart 2 UNITS ONE TIME ONE 09/03 2130 DC 09/03 SC 09/03 2131 2130 Insulin Aspart 0 TIDAC 09/03 1200 AC 09/04 SC 0826 Insulin Detemir 14 UNITS BID 09/04 2200 AC SC Insulin Detemir 10 UNITS BID 09/03 1000 DC 09/04 SC 0826 Insulin Human Regular 0 Q6 09/03 0803 DC 09/03 SC 0817 Ipratropium [place] 1.25 ML ONCE ONE 09/04 1215 DC INH 09/04 1216 Ipratropium [place] 2.5 ML Q4P PRN 09/03 1445 DC 09/04 INH 0725 Lactobacillus 1 CAP BID 08/29 1000 AC 09/04 Acidophilus PO 0829 Lorazepam 1 MG Q4P PRN 09/03 1500 AC 09/03 IV 1453 Magnesium Oxide 400 MG DAILY 08/29 1000 AC 09/04 PO 0830 Methylprednisolone 40 MG Q8 09/03 1644 DC 09/04 IV 0540 Oxycodone HCl 5 MG Q6PRN PRN 08/29 0930 AC PO Pravastatin Sodium 80 MG DAILY 08/29 1000 AC 09/04 PO 0829 Prednisone 10 MG DAILY 09/10 1000 CAN PO 09/12 1001 Prednisone 20 MG DAILY 09/07 1000 CAN PO 09/09 1001 Prednisone 30 MG DAILY 09/04 1003 AC 09/04 PO 1217 Prednisone 30 MG DAILY 09/04 1000 CAN PO 09/06 1001 Rivaroxaban 15 MG DAILY 08/29 1000 AC 09/04 PO 0830 Sodium Chloride 2 SPRAY Q3P PRN 09/01 1530 AC 09/03 REGIS 1059 Tamsulosin HCl 0.4 MG DAILY 08/29 1000 AC 09/04 PO 0830 Tiotropium [place] 1 PUF DAILY 08/29 1000 AC 09/04 INH 0829 Tramadol HCl 50 MG Q6P PRN 08/29 0930 AC PO Laboratory Tests 09/03/16 1845: pH 7.40, pCO2 42, pO2 116 H, HCO3 25, ABG O2 Sat (Measured) 97.0, Carboxyhemoglobin 0.2 L, O2 Concentration % 50%, Respiration Rate 20, O2 Delivery Method VISION, Vent Mode ST, Expiratory Pressure 6, Inspiratory Pressure 20, Phlebotomy Draw Site RIGHT RADIAL 09/03/16 1650: pH 7.31 L, pCO2 53 H, pO2 82, HCO3 26, ABG O2 Sat (Measured) 93.0 L, Carboxyhemoglobin 0.2 L, O2 Concentration % 55%, O2 Delivery Method VM, Phlebotomy Draw Site RIGHT RADIAL 09/03/16 0620: Anion Gap 9, Estimated GFR 37 L, BUN/Creatinine Ratio 33.3 H, CBC w Diff NO MAN DIFF REQ, RBC 3.24 L, MCV 81.5, MCH 26.4 L, RDW 18.5 H, MPV 7.6, Gran % 92.0 H, Lymphocytes % 3.1 L, Monocytes % 4.2, Eosinophils % 0.7, Basophils % 0 L, Absolute Granulocytes 11.2 H, Absolute Lymphocytes 0.4 L, Absolute Monocytes 0.5, Absolute Eosinophils 0.1, Absolute Basophils 0, PUBS MCHC 32.4 L Vital Signs Date Time Temp Pulse Resp B/P B/P Pulse O2 O2 Flow FiO2 Mean Ox Delivery Rate 09/04 0830 150/72 09/04 0830 150/72 09/04 0800 94 Nasal 3.0L Cannula 09/04 0729 96 Venti Mask 40% 09/04 0728 96.7 109 20 150/72 95 Venti Mask 09/04 0000 94 Venti Mask 40% 09/03 2303 97.8 114 20 138/78 92 09/03 2051 105 145/80 09/03 2044 94 Venti Mask 40% 09/03 2043 90 97 09/03 1700 100 96 09/03 1650 115 164/80 09/03 1624 92 Venti Mask 55% 09/03 1600 100 BIPAP 09/03 1556 110 146/68 09/03 1443 Nasal 2.0L Cannula 09/03 1436 96.1 110 20 146/68 95 Nasal Cannula 09/03 1424 Nasal 2.0L Cannula
--- NOTE | 2016-09-04 13:38 | PN- Cardiology ---
Subjective Subjective: Mr. Yuriy saravia developed increasing shortness of breath yesterday afternoon and was seen to be in some congestive heart failure with pleural effusion on chest x- ray. He also developed some CO2 retention and was put on BiPAP. He was given some IV Lasix and improved. Objective Vital Signs and I&Os Vital Signs Date Time Temp Pulse Resp B/P B/P Pulse O2 O2 Flow FiO2 Mean Ox Delivery Rate 09/04 0830 150/72 09/04 0830 150/72 09/04 0800 94 Nasal 3.0L Cannula 09/04 0729 96 Venti Mask 40% 09/04 0728 96.7 109 20 150/72 95 Venti Mask 09/04 0000 94 Venti Mask 40% 09/03 2303 97.8 114 20 138/78 92 09/03 2051 105 145/80 09/03 2044 94 Venti Mask 40% 09/03 2043 90 97 09/03 1700 100 96 09/03 1650 115 164/80 09/03 1624 92 Venti Mask 55% 09/03 1600 100 BIPAP 09/03 1556 110 146/68 09/03 1443 Nasal 2.0L Cannula 09/03 1436 96.1 110 20 146/68 95 Nasal Cannula 09/03 1424 Nasal 2.0L Cannula Intake & Output 09/04 1600 09/04 0800 09/04 0000 09/03 1600 09/03 0800 09/03 0000 Intake Total 100 120 600 450 Output Total 900 950 400 250 350 Balance -800 -830 200 -250 100 Intake, Oral 100 120 600 450 Output, Urine 900 950 400 250 350 Patient 185 lb Weight Physical Exam: HEENT exam is normal Chest reveals decreased breath sounds in the right base and some rhonchi Heart reveals irregular rhythm and no murmurs Current Medications: Current Medications Sig/Clare Start time Last Medication Dose Route Stop Time Status Admin Acetaminophen 650 MG Q6P PRN 08/29 0930 AC PO Albuterol Sulfate 3 ML BID 08/31 2200 AC 09/04 INH 0725 Allopurinol 300 MG DAILY 08/29 1000 AC 09/04 PO 0829 Amiodarone HCl 200 MG TID 09/01 1000 AC 09/04 PO 0830 Budesonide/ 2 PUF BID 08/29 1000 AC 09/04 Formoterol Fumarate INH 0830 Diltiazem HCl 5 MG ONCE ONE 09/03 1545 DC 09/03 IV PUSH 09/03 1546 1556 Diltiazem HCl 120 MG BID 08/31 2200 AC 09/04 PO 0830 Furosemide 40 MG ONCE ONE 09/03 2014 DC 09/03 IV 09/03 Furosemide 40 MG ONCE ONE 09/03 1645 DC 09/03 IV PUSH 09/03 1646 1639 Insulin Aspart 2 UNITS ONE TIME ONE 09/03 2130 DC 09/03 SC 09/03 2131 2130 Insulin Aspart 0 TIDAC 09/03 1200 AC 09/04 SC 1217 Insulin Detemir 14 UNITS BID 09/04 2200 AC SC Insulin Detemir 10 UNITS BID 09/03 1000 DC 09/04 SC 0826 Insulin Human Regular 0 Q6 09/03 0803 DC 09/03 SC 0817 Ipratropium [place] 1.25 ML ONCE ONE 09/04 1215 DC INH 09/04 1216 Ipratropium [place] 2.5 ML Q4P PRN 09/03 1445 DC 09/04 INH 0725 Lactobacillus 1 CAP BID 08/29 1000 AC 09/04 Acidophilus PO 0829 Lorazepam 1 MG Q4P PRN 09/03 1500 AC 09/03 IV 1453 Magnesium Oxide 400 MG DAILY 08/29 1000 AC 09/04 PO 0830 Methylprednisolone 40 MG Q8 09/03 1644 DC 09/04 IV 0540 Oxycodone HCl 5 MG Q6PRN PRN 08/29 0930 AC PO Pravastatin Sodium 80 MG DAILY 08/29 1000 AC 09/04 PO 0829 Prednisone 10 MG DAILY 09/10 1000 CAN PO 09/12 1001 Prednisone 20 MG DAILY 09/07 1000 CAN PO 09/09 1001 Prednisone 30 MG DAILY 09/04 1003 AC 09/04 PO 1217 Prednisone 30 MG DAILY 09/04 1000 CAN PO 09/06 1001 Rivaroxaban 15 MG DAILY 08/29 1000 AC 09/04 PO 0830 Sodium Chloride 2 SPRAY Q3P PRN 09/01 1530 AC 09/03 REGIS 1059 Tamsulosin HCl 0.4 MG DAILY 08/29 1000 AC 09/04 PO 0830 Tiotropium [place] 1 PUF DAILY 08/29 1000 AC 09/04 INH 0829 Tramadol HCl 50 MG Q6P PRN 08/29 0930 AC PO Results Last 48 Hrs of Labs/Mics: Laboratory Tests 09/03/16 1845: pH 7.40, pCO2 42, pO2 116 H, HCO3 25, ABG O2 Sat (Measured) 97.0, Carboxyhemoglobin 0.2 L, O2 Concentration % 50%, Respiration Rate 20, O2 Delivery Method VISION, Vent Mode ST, Expiratory Pressure 6, Inspiratory Pressure 20, Phlebotomy Draw Site RIGHT RADIAL 09/03/16 1650: pH 7.31 L, pCO2 53 H, pO2 82, HCO3 26, ABG O2 Sat (Measured) 93.0 L, Carboxyhemoglobin 0.2 L, O2 Concentration % 55%, O2 Delivery Method VM, Phlebotomy Draw Site RIGHT RADIAL 09/03/16 0620: Anion Gap 9, Estimated GFR 37 L, BUN/Creatinine Ratio 33.3 H, CBC w Diff NO MAN DIFF REQ, RBC 3.24 L, MCV 81.5, MCH 26.4 L, RDW 18.5 H, MPV 7.6, Gran % 92.0 H, Lymphocytes % 3.1 L, Monocytes % 4.2, Eosinophils % 0.7, Basophils % 0 L, Absolute Granulocytes 11.2 H, Absolute Lymphocytes 0.4 L, Absolute Monocytes 0.5, Absolute Eosinophils 0.1, Absolute Basophils 0, PUBS MCHC 32.4 L Recent Imaging Studies: PATIENT: SONDRA CANO PRESENT AGE: 76 PATIENT ACCOUNT NO: [id number] : 39 LOCATION: [facility] ORDERING PHYSICIAN: DAVID MCDONALD MD SERVICE DATE: 09/04/16 EXAM TYPE: RAD - XRY-CHEST XRAY, PA AND LATERAL EXAMINATION: XR CHEST CLINICAL INFORMATION: Hypoxia. Bilateral pleural effusions. COMPARISON: Several prior chest x-rays, most recent of which is dated 09/03/2016. TECHNIQUE: AP and lateral views of the chest were obtained. FINDINGS: Right atrial pacer lead and right ventricular AICD lead again seen, unchanged. Cardiomediastinal silhouette is borderline enlarged, unchanged. Calcification of the aortic arch is seen. There is continued hazy opacity in the right lung base, unchanged from prior exam. Central vascular congestion is noted without overt pulmonary edema. Bilateral pleural effusions are seen, right greater than left. No pneumothorax is seen. Bony structures are unremarkable. IMPRESSION: 1. No interval change in moderate right-sided pleural effusion with associated right basilar consolidation. 2. Small left-sided pleural effusion is also suspected, though less well visualized than on prior CT scan. Associated left basilar subsegmental atelectasis is seen. 3. Central vascular congestion without overt pulmonary edema. DICTATED BY: TWILA ECKERT MD DATE/TIME DICTATED:09/04/161132 [employer] TECHNICAL ASSISTANT:SANTANA DATE/TIME TRANSCRIBED:09/04/161132 CONFIDENTIAL, DO NOT COPY WITHOUT APPROPRIATE AUTHORIZATION. <Electronically signed in Other Vendor System> SIGNED BY: TWILA ECKERT MD 1140 Assessment/Plan Assessment/Plan Sondra remains in atrial fibrillation, although he transiently converted to sinus rhythm with cardioversion. However, this did not hold. He is on a higher dose of Cardizem and amiodarone. However, he remains in atrial fibrillation. He developed respiratory failure probably due to acute on chronic diastolic heart failure yesterday. He was given some diuretics. They have not been reordered. I think the patient needs chronic fairly high-dose diuretics to keep him out of pulmonary edema and heart failure. We will put him on IV Lasix for a couple of days and then switched to oral Lasix. Hopefully this will improve his breathing and reduce the pleural effusion. If it does not then he may need a thoracentesis. Continue telemetry? Yes
[2016-09-04 14:36] VITALS: BP 130/62
[2016-09-04 22:00] VITALS: BP 132/60
[2016-09-05 06:06] VITALS: BP 128/78
[2016-09-05 08:07] LABS: ABSOLUTE BASOPHIL COUNT 0 /CUMM (0.0-0.2); ABSOLUTE EOSINOPHIL COUNT 0 /CUMM (0.0-0.7); ABSOLUTE GRANULOCYTE CT 12.9 /CUMM (1.4-6.5); ABSOLUTE LYMPH COUNT 0.3 /CUMM (1.2-3.4); ABSOLUTE MONOCYTE COUNT 0.4 /CUMM (0.10-0.60); BASOPHIL % 0 % (0.0-2.0); EOSINOPHIL % 0 % (0-5); HEMATOCRIT 27.4 % (42-52); MEAN CORPUSCULAR HGB 26.5 PG (27.0-31.0); MEAN CORPUSCULAR HGB CONC 32.5 G/DL (33.0-37.0); MEAN CORPUSCULAR VOLUME 81.4 FL (80.0-94.0); MEAN PLATELET VOLUME 7.5 FL (7.4-10.4); RBC DISTRIBUTION WIDTH 18.6 % (11.5-14.5); RED BLOOD CELL CT 3.37 /CUMM (4.70-6.10); WHITE BLOOD CELL COUNT 13.6 /CUMM (4.8-10.8)
--- NOTE | 2016-09-05 08:22 | PN- Diabetes ---
Assessment/Plan Assessment: Patient feels a little better today. He is still short of breath. He continues on methylprednisolone 40 mg every 8 hours. The patient's fingerstick blood sugar this morning before breakfast is 217. Yesterday his fingerstick sugars were to 278 before breakfast, 303 before lunch, 122 before dinner, and 286 at bedtime. We adjusted his insulin yesterday Patient may be going to a longterm for rehabilitation. Plan: Suggest continue the present dose of insulin. Hopefully his steroids will be able to be tapered perhaps to twice a day. We will monitor her sugars today before making any further adjustments. Objective Last 24 Hrs of Vital Signs/I&O Vital Signs Date Time Temp Pulse Resp B/P B/P Pulse O2 O2 Flow FiO2 Mean Ox Delivery Rate 09/05 0823 128/78 09/05 0606 97.8 98 20 128/78 95 Nasal 2.0L Cannula 09/05 0047 96 97 09/05 0000 Nasal 2.0L Cannula 09/04 2200 98.2 100 20 132/60 92 Nasal 3.0L Cannula 09/04 2128 79 130/62 09/04 2048 96 Nasal 2.0L Cannula 09/04 1707 99 130/62 09/04 1436 98.0 99 20 130/62 95 Nasal 3.0L Cannula Intake & Output 09/05 1600 09/05 0800 09/05 0000 Intake Total 120 720 Output Total 1000 600 Balance -880 120 Intake, Oral 120 720 Output, Urine 1000 600 Vital Signs Date Time Temp Pulse Resp B/P B/P Pulse O2 O2 Flow FiO2 Mean Ox Delivery Rate 09/05 0823 128/78 09/05 0606 97.8 98 20 128/78 95 Nasal 2.0L Cannula 09/05 0047 96 97 09/05 0000 Nasal 2.0L Cannula 09/04 2200 98.2 100 20 132/60 92 Nasal 3.0L Cannula 09/04 2128 79 130/62 09/049 96 Nasal 2.0L Cannula 09/04 1707 99 130/62 09/04 1436 98.0 99 20 130/62 95 Nasal 3.0L Cannula Intake & Output 09/05 1600 09/05 0800 07 0000 Intake Total 120 720 Output Total 1000 600 Balance -880 120 Intake, Oral 120 720 Output, Urine 1000 600 Physical Exam General Appearance: alert, awake, anxious Head: normal appearance Neck: normal inspection Respiratory: decreased breath sounds Cardiovascular: regular rate/rhythm Extremities: normal inspection Current Medications: Current Medications Sig/Clare Start time Last Medication Dose Route Stop Time Status Admin Acetaminophen 650 MG Q6P PRN 08/29 0930 AC PO Albuterol Sulfate 3 ML BID 08/31 2200 AC 09/04 INH 2044 Allopurinol 300 MG DAILY 08/29 1000 AC 09/05 PO 0822 Amiodarone HCl 200 MG TID 09/01 1000 AC 09/05 PO 0823 Budesonide/ 2 PUF BID 08/29 1000 AC 09/05 Formoterol Fumarate INH 0831 Diltiazem HCl 120 MG BID 08/31 2200 AC 09/05 PO 0823 Furosemide 40 MG BID 09/04 1400 AC 09/05 IV 0822 Insulin Aspart 0 TIDAC 09/03 1200 AC 09/05 SC 0823 Insulin Detemir 14 UNITS BID 09/04 2200 AC 09/05 SC 0823 Insulin Detemir 10 UNITS BID 09/03 1000 DC 09/04 SC 0826 Ipratropium [place] 1.25 ML ONCE ONE 09/04 1215 DC INH 09/04 1216 Ipratropium [place] 2.5 ML Q4P PRN 09/03 1445 DC 09/04 INH 0725 Lactobacillus 1 CAP BID 08/29 1000 AC 09/05 Acidophilus PO 0822 Lorazepam 1 MG Q4P PRN 09/03 1500 AC 09/03 IV 1453 Magnesium Oxide 400 MG DAILY 08/29 1000 AC 09/05 PO 0823 Methylprednisolone 40 MG Q8 09/03 1644 DC 09/04 IV 0540 Oxycodone HCl 5 MG Q6PRN PRN 08/29 0930 AC PO Patient Medication 1 ED .STK-MED ONE 09/04 1429 DC Teaching ED 09/04 1430 Pravastatin Sodium 80 MG DAILY 08/29 1000 AC 09/05 PO 0822 Prednisone 30 MG DAILY 09/04 1003 AC 09/05 PO 0822 Rivaroxaban 15 MG DAILY 08/29 1000 AC 09/05 PO 0823 Sodium Chloride 2 SPRAY Q3P PRN 09/01 1530 AC 09/03 REGIS 1059 Tamsulosin HCl 0.4 MG DAILY 08/29 1000 AC 09/05 PO 0823 Tiotropium [place] 1 PUF DAILY 08/29 1000 AC 09/05 INH 0822 Tramadol HCl 50 MG Q6P PRN 08/29 0930 AC PO Findings Pertinent Lab/[place] Results: Laboratory Tests 09/05 0655 Chemistry Sodium Pending Potassium Pending Chloride Pending Carbon Dioxide Pending Anion Gap Pending BUN Pending Creatinine Pending BUN/Creatinine Ratio Pending Hematology CBC w Diff Pending WBC Pending RBC Pending Hgb Pending Hct Pending MCV Pending MCH Pending RDW Pending Plt Count Pending MPV Pending Gran % Pending Lymphocytes % Pending Monocytes % Pending Eosinophils % Pending Basophils % Pending Absolute Granulocytes Pending Absolute Lymphocytes Pending Absolute Monocytes Pending Absolute Eosinophils Pending Absolute Basophils Pending PUBS MCHC Pending
--- NOTE | 2016-09-05 08:23 | PN- Housestaff ---
Subjective Follow-up For: diastolic hear failure acute hypoxic resp failure acute pulm edema Fatigue afib with rvr Complaints: SOB Tele-Events Since Last Visit: S PACING [id number] Subjective: I HAVE PERSONALLY SEEN THE PATIENT AT BED SODE , HE WAS SITTING COMFORTABLE IN NO ACUTE DISTRESS, ON NASAL OXYGEN Review of Systems Constitutional: Denies: see HPI. Cardiovascular: Reports: peripheral edema. Respiratory: Reports: cough, short of breath, sputum production. Gastrointestinal: Denies: no symptoms. Genitourinary: Denies: no symptoms. Neurological/Psychological: Denies: no symptoms. Objective Last 24 Hrs of Vital Signs/I&O Vital Signs Date Time Temp Pulse Resp B/P B/P Pulse O2 O2 Flow FiO2 Mean Ox Delivery Rate 09/05 0606 97.8 98 20 128/78 95 Nasal 2.0L Cannula 09/05 0047 96 97 09/05 0000 Nasal 2.0L Cannula 09/04 2200 98.2 100 20 132/60 92 Nasal 3.0L Cannula 09/04 2129 79 130/62 09/04 2049 96 Nasal 2.0L Cannula 09/04 1707 99 130/62 09/04 1436 98.0 99 20 130/62 95 Nasal 3.0L Cannula 09/04 0830 150/72 09/04 0830 150/72 Intake & Output 09/05 1600 09/05 0800 09/05 0000 Intake Total 120 720 Output Total 1000 600 Balance -880 120 Intake, Oral 120 720 Output, Urine 1000 600 Physical Exam General Appearance: Alert, Oriented X3, Cooperative, No Acute Distress Assessment/Plan Assessment: 76-year-old gentleman with a past mental history significant for recurrent nosebleeds/epistaxis status post cauterization, atrial fibrillation on Xarelto, coronary artery disease (history of multiple stents), cardiomyopathy status post pacemaker/defibrillator, COPD(on 1 L of oxygen at bedtime), history of MRSA pneumonia June 2016, recently admitted to [facility] due to epistaxis and C. difficile colitis presented to the ED for further evaluation of worsening shortness of breath and cough. # Acute hypoxic respiratory failure: -likely due to pulmonary edema secondary rapid A-fib. -pleural effusion due to heart failure - severe COPD due to acute pulmonary edema with rapid a fib -WBC HIGH is likely due to steroid use rather than infection -continue to Monitor on telemetry floor -Lasix PRN -Continue prednisone 30 and wean -Follow-up blood cultures and sputum cultures -reduce albuterol veb dose by half (1.25 mg) and use only PRN -TRC evaluation . - pulmonology on board # ACUTE DIASTOLIC HEART FAILURE: 2/2 A FIB WITH RVR - continue to monitor on telemetery -lasix PRN for pulm edema - pt can't be kept on lasix due to impaired renal functions #History of paroxysmal atrial fibrillation -currently pt is not stable with bilateral crepitation likely due to pulmonary edema due to a fib -continue cardizem 120 mg BID. -Increase Amiodarone to 200 mg TID as per Dr. Ramirez recommendation _might need another cardioversion after two weeks. -Patient is currently on amiodarone so we are checking a free T4 and TSH level. #History of coronary artery disease status post stents: -Echo done in June 2016:Normal size left ventricle. Mild to moderate concentric left ventricular hypertrophy. Left ventricular systolic function is mildly decreased with estimated ejection fraction 55-60%. There is mild postero- lateral hypokinesis seen -Continue aspirin and statins # History of chronic kidney disease(stage IIIB) Worsening kidney function likely secondary to IV diuresis, hold Lasix. Encouraged by mouth fluids. #Bilateral low extremity Edema: . hold Lasix as his kidney function is deteriorating pt needed an IV lasix push # History of chronic normocytic anemia: Hemoglobin currently 7.8 follow up his CBC tomorrow\ iron studies Give saline nasal spray every 3 hours to prevent epistasis and bacitracin ointment #insulin-dependent diabetes mellitus: will keep him on Novolog and levemir [address] Last on board. #History of gout * Continue home dose of allopurinol DVT prophylaxis: mechanical code: full code diet: chf and consistent carbohydrate Problem List: 1. CAD (coronary artery disease) 2. Pulmonary edema 3. Pleural effusion 4. History of paroxysmal atrial tachycardia 5. Acute and chronic respiratory failure with hypoxia 6. IDDM (insulin dependent diabetes mellitus) Pain Ratin Pain Location: N/A Pain Goal: Remain pain free Pain Plan: TYLENOL Tomorrow's Labs & Rationales: BEP DVT/Prophylaxis: pharmacological
[2016-09-05 09:03] LABS: GRANULOCYTE % 94.6 % (42.2-75.2); PLATELET COUNT 395 /CUMM (130-400)
--- NOTE | 2016-09-05 13:35 | PN- Att Addend ---
Attending Addendum Attending Brief Note Better today less short of breath,, calmer, vital signs are stable, no fever acute changes on physical and will continue IV diuresis for today, hopefully have been switched to by mouth diuretics in the morning and then if okay with cardiology and pulmonary and go for respiratory and cardiac rehabilitation short -term Intake & Output 09/05 1600 09/05 0400 09/04 1600 09/04 0400 09/03 1600 09/03 0400 Intake Total 120 720 940 120 600 450 Output Total 6101 388 3112 950 650 350 Balance -880 120 -660 -830 -50 100 Intake, Oral 120 720 940 120 600 450 Output, Urine 3772 878 5061 950 650 350 Patient 185 lb Weight Laboratory Tests 09/05/16 0655: Anion Gap 12, Estimated GFR 33 L, BUN/Creatinine Ratio 33.5 H, CBC w Diff NO MAN DIFF REQ, RBC 3.37 L, MCV 81.4, MCH 26.5 L, RDW 18.6 H, MPV 7.5, Gran % 94.6 H, Lymphocytes % 2.1 L, Monocytes % 3.3, Eosinophils % 0, Basophils % 0 L, Absolute Granulocytes 12.9 H, Absolute Lymphocytes 0.3 L, Absolute Monocytes 0.4, Absolute Eosinophils 0, Absolute Basophils 0, PUBS MCHC 32.5 L 09/03/16 1845: pH 7.40, pCO2 42, pO2 116 H, HCO3 25, ABG O2 Sat (Measured) 97.0, Carboxyhemoglobin 0.2 L, O2 Concentration % 50%, Respiration Rate 20, O2 Delivery Method VISION, Vent Mode ST, Expiratory Pressure 6, Inspiratory Pressure 20, Phlebotomy Draw Site RIGHT RADIAL 09/03/16 1650: pH 7.31 L, pCO2 53 H, pO2 82, HCO3 26, ABG O2 Sat (Measured) 93.0 L, Carboxyhemoglobin 0.2 L, O2 Concentration % 55%, O2 Delivery Method VM, Phlebotomy Draw Site RIGHT RADIAL 09/03/16 0620: Anion Gap 9, Estimated GFR 37 L, BUN/Creatinine Ratio 33.3 H, CBC w Diff NO MAN DIFF REQ, RBC 3.24 L, MCV 81.5, MCH 26.4 L, RDW 18.5 H, MPV 7.6, Gran % 92.0 H, Lymphocytes % 3.1 L, Monocytes % 4.2, Eosinophils % 0.7, Basophils % 0 L, Absolute Granulocytes 11.2 H, Absolute Lymphocytes 0.4 L, Absolute Monocytes 0.5, Absolute Eosinophils 0.1, Absolute Basophils 0, PUBS MCHC 32.4 L Microbiology 09/03 1710 URINE ROUT: Urine Culture - CAN Cancelled: SPECIMEN NOT RECEIVED IN LABORATORY Microbiology 09/03 1710 URINE ROUT: Urine Culture - CAN Cancelled: SPECIMEN NOT RECEIVED IN LABORATORY
--- NOTE | 2016-09-05 13:58 | PN- Cardiology ---
Subjective Subjective: Don feels a lot better today. He is less short of breath. He remains in atrial fibrillation with a rate below 100. He is on IV Lasix and IV steroids. Objective Vital Signs and I&Os Vital Signs Date Time Temp Pulse Resp B/P B/P Pulse O2 O2 Flow FiO2 Mean Ox Delivery Rate 09/05 1207 94 Nasal 3.0L Cannula 09/05 0823 128/78 09/05 0800 94 Nasal 2.0L Cannula 09/05 0606 97.8 98 20 128/78 95 Nasal 2.0L Cannula 09/05 0047 96 97 09/05 0000 Nasal 2.0L Cannula 09/04 2200 98.2 100 20 132/60 92 Nasal 3.0L Cannula 09/04 2129 79 130/62 09/04 2049 96 Nasal 2.0L Cannula 09/04 1707 99 130/62 09/04 1436 98.0 99 20 130/62 95 Nasal 3.0L Cannula Intake & Output 09/05 1600 09/05 0800 09/05 0000 09/04 1600 09/04 0800 09/04 0000 Intake Total 120 720 840 100 120 Output Total 1000 600 700 900 950 Balance -880 120 140 -800 -830 Intake, Oral 120 720 840 100 120 Output, Urine 1000 600 700 900 950 Patient 185 lb Weight Physical Exam: He is in no distress HEENT exam normal Lungs decreased breath sounds and scattered wheezes Heart irregular rhythm soft heart sounds No edema Current Medications: Current Medications Sig/Clare Start time Last Medication Dose Route Stop Time Status Admin Acetaminophen 650 MG Q6P PRN 08/29 0930 AC PO Albuterol Sulfate 3 ML BID 08/31 2200 AC 09/05 INH 1205 Allopurinol 300 MG DAILY 08/29 1000 AC 09/05 PO 0822 Amiodarone HCl 200 MG TID 09/01 1000 AC 09/05 PO 0823 Budesonide/ 2 PUF BID 08/29 1000 AC 09/05 Formoterol Fumarate INH 0831 Diltiazem HCl 120 MG BID 08/31 2200 AC 09/05 PO 0823 Furosemide 40 MG BID 09/04 1400 AC 09/05 IV 0822 Insulin Aspart 0 TIDAC 09/03 1200 AC 09/05 SC 1227 Insulin Detemir 14 UNITS BID 09/04 2200 AC 09/05 SC 0823 Lactobacillus 1 CAP BID 08/29 1000 AC 09/05 Acidophilus PO 0822 Lorazepam 1 MG Q4P PRN 09/03 1500 AC 09/03 IV 1453 Magnesium Oxide 400 MG DAILY 08/29 1000 AC 09/05 PO 0823 Oxycodone HCl 5 MG Q6PRN PRN 08/29 0930 DC PO Patient Medication 1 ED .STK-MED ONE 09/04 1429 DC Teaching ED 09/04 1430 Pravastatin Sodium 80 MG DAILY 08/29 1000 AC 09/05 PO 0822 Prednisone 30 MG DAILY 09/04 1003 AC 09/05 PO 0822 Rivaroxaban 15 MG DAILY 08/29 1000 AC 09/05 PO 0823 Sodium Chloride 2 SPRAY Q3P PRN 09/01 1530 AC 09/03 REGIS 1059 Tamsulosin HCl 0.4 MG DAILY 08/29 1000 AC 09/05 PO 0823 Tiotropium [place] 1 PUF DAILY 08/29 1000 AC 09/05 INH 0822 Tramadol HCl 50 MG Q6P PRN 08/29 0930 DC PO Results Last 48 Hrs of Labs/Mics: Laboratory Tests 09/05/16 0655: Anion Gap 12, Estimated GFR 33 L, BUN/Creatinine Ratio 33.5 H, CBC w Diff NO MAN DIFF REQ, RBC 3.37 L, MCV 81.4, MCH 26.5 L, RDW 18.6 H, MPV 7.5, Gran % 94.6 H, Lymphocytes % 2.1 L, Monocytes % 3.3, Eosinophils % 0, Basophils % 0 L, Absolute Granulocytes 12.9 H, Absolute Lymphocytes 0.3 L, Absolute Monocytes 0.4, Absolute Eosinophils 0, Absolute Basophils 0, PUBS MCHC 32.5 L 09/03/16 1845: pH 7.40, pCO2 42, pO2 116 H, HCO3 25, ABG O2 Sat (Measured) 97.0, Carboxyhemoglobin 0.2 L, O2 Concentration % 50%, Respiration Rate 20, O2 Delivery Method VISION, Vent Mode ST, Expiratory Pressure 6, Inspiratory Pressure 20, Phlebotomy Draw Site RIGHT RADIAL 09/03/16 1650: pH 7.31 L, pCO2 53 H, pO2 82, HCO3 26, ABG O2 Sat (Measured) 93.0 L, Carboxyhemoglobin 0.2 L, O2 Concentration % 55%, O2 Delivery Method VM, Phlebotomy Draw Site RIGHT RADIAL Assessment/Plan Assessment/Plan Rob remains in atrial fibrillation, although he transiently converted to sinus rhythm with cardioversion. However, this did not hold. He is on a higher dose of Cardizem and amiodarone. However, he remains in atrial fibrillation. His rate is better controlled He developed respiratory failure probably due to acute on chronic diastolic heart failure on 09/03/2016. He is now on IV Lasix. I would keep him on IV Lasix for another day and then put him on oral Lasix at fairly high doses. We will probably have to accept some additional renal dysfunction. I recommend a chest x-ray tomorrow for follow-up of his pleural effusion. I recommend trying to taper his steroids if pulmonary agrees. Continue telemetry? Yes
[2016-09-05 15:23] VITALS: BP 137/68
[2016-09-05] MEDS ORDERED: LASIX40 M1 PO (17:24)
[2016-09-05] MEDS ORDERED: AMIODARONE HCL200 M1 PO (17:24)
--- NOTE | 2016-09-05 17:40 | Discharge Summary ---
Visit Information Visit Dates Admission Date: 08/29/16 Discharge Date: 09/06/2016 Hospital Course Course Attending Physician: SCARLETT WATT MD Primary Care Physician: ALYSA LONGORIA,SCARLETT [facility] Course: Patient is a 76-year-old gentleman with a past mental history significant for recurrent nosebleeds/epistaxis status post cauterization, atrial fibrillation on Xarelto, coronary artery disease (history of multiple stents), cardiomyopathy status post pacemaker/defibrillator, COPD(on 4 L of oxygen at bedtime), history of MRSA pneumonia June 2016, recently admitted to [facility] due to epistaxis and C. difficile colitis presented to the ED for further evaluation of worsening shortness of breath and cough. Pertinent labs on admission because it is a 13.6 without any bandemia, H&H low 9.2/28(close to his baseline), BUN and creatinine 30/1.7(baseline creatinine 1.9 ), slight hyponatremia 136, elevated proBNP 7900. EKG and done in the ED showed ventricular paced rhythm heart rate 113 Chest x-ray: Findings suspicious for mild\\early congestive heart failure. Small right pleural effusion with possible concomitant opacity could reflect atelectasis or evolving infiltrate. Echo done in June 2016: Normal size left ventricle. Mild to moderate concentric left ventricular hypertrophy. Left ventricular systolic function is mildly decreased with estimated ejection fraction 55-60%. There is mild postero-lateral hypokinesis seen. Patient was treated in the hospital for #1 Acute hypoxic respiratory failure likely due to combination of pneumonia, COPD exacerbation and acute on chronic heart failure with preserved ejection fraction: Patient was admitted to the telemetry floor and started on IV ceftazidime and IV doxycycline. He was put on IV Solu-Medrol. TRC nebs and nebulizers were continued [id number]. He was actively diuresed with IV Lasix. Pulmonology evaluated the patient and discontinued antibiotics as infection seemed less likely and this looked more like a CHF and COPD exacerbation. Steroids were tapered slowly and patient was actively diuresed. Blood cultures remain negative. Patient's condition improved however he remained really anxious and required Ativan for anxiety. He also had A. fib with rapid RVR and went into flash pulmonary edema during the hospital stay and was treated with IV Lasix and BiPAP. His repeat CXR showed persistent small right pleural effusion and airspace opacity. He worked with physical therapy and was recommended rehabilitation. He needs to follow up with chrome tanner Dr Nhan Shell after discharge. #History of atrial fibrillation with RVR: Patient's atrial fibrillation with rapid rate was the main reason of going into pulmonary edema and heart failure all the time. He underwent cardioversion on 09/01/[address] Ramirez. Post cardioversion he transiently remained in sinus rhythm however he converted back into A. fib. He was maintained on amiodarone during the hospital stay and plan was to reattempt cardioversion. However since the patient went into flash pulmonary edema and required IV Lasix and steroids for hypoxia, no further cardioversion was attempted. Plan is to continue amiodarone for now and follow up with cone machine feeder Dr. Ramirez as an outpatient for repeat cardioversion later. #3 Diabetes mellitus: Maintained on 3 times a day Accu-Cheks, NovoLog sliding scale and diabetic diet. Endocrinology was on board. #4 Heart failure with preserved ejection fraction: Patient's atrial fibrillation often pushed him into heart failure with flash pulmonary edema. He was on IV diuresis in the hospital and was discharged on by mouth Lasix. Other home medications were continued. Last Echo fron June 2016 showed Left ventricular systolic function is mildly decreased with estimated ejection fraction 55-60% with mild postero- lateral hypokinesis seen. PCM wires intact. #5 Acute kidney injury on chronic kidney disease stage IIIB. His electrolytes were closely monitored, BEP monitored on IV Lasix. Lasix was oh held transiently due to worsening kidney function but restarted again because the patient went into flash pulmonary edema. DVT prophylaxis: mechanical code: full code diet: chf and consistent carbohydrate Allergies: Coded Allergies: NO KNOWN ALLERGIES (UNKNOWN 08/10/16) Disposition Summary Disposition Principal Diagnosis: ACUTE ON CHRONIC RESPIRATORY FAILURE DUE TO COPD EXACERBATION AND HEART FAILURE Additional Diagnosis: pulmonary edema Discharge Disposition: SNF Discharge Instructions General Discharge Information Code Status: Full Code Patient's Diet: diabetic Patient's Activity: as tolerated Follow-Up Instructions/Appts: 1. PLEASE FOLLOW UP WITH YOUR PULPER TENDER DR RAMIREZ IN 1 WEEK AND PLAN FOR CARDIOVERSION. 2. PLEASE F/U WITH YOUR HYDROGRAPHER WITHIN 2 WEEK OF DISCHARGE. 3. PLEASE FOLLOW UP WITH YOUR PCP WITHIN 7 DAYS OF DISCHARGE. Medications at Discharge Discharge Medications: Stop taking the following medications: Albuterol Sulfate (Albuterol Sulfate) 2.5 MG/3 ML (0.083 %) VIAL.NEB Inhale Solution THREE TIMES DAILY as needed for wheezing Qty = 10 Amiodarone HCl (Amiodarone HCl) 200 MG TABLET ORAL DAILY Prednisone (Prednisone) 5 MG TABLET ORAL DAILY Continue taking these medications: Multivit-Min/FA/Lycopen/Lutein (Centrum Silver Tablet) 0.4 MG-300 MCG-250 MCG TABLET 1 Tablet ORAL DAILY Comments: NOT GIVEN IN HOSPITAL Fluticasone/Vilanterol (Breo Ellipta 100-25 Mcg INH) 100 MCG-25 MCG/DOSE BLST.W.DEV 1 PUFF Inhale through mouth DAILY Comments: NOT GIVEN IN HOSPITAL Tamsulosin HCl (Flomax) 0.4 MG CAP.ER.24H 1 Capsule ORAL DAILY Comments: Last Taken: 08/17/16 Time: 9:15 AM Allopurinol (Allopurinol) 300 MG TABLET 1 Tablet ORAL DAILY Comments: NOT GIVEN IN HOSPITAL Albuterol Sulfate (Ventolin Hfa) 18 GM HFA.AER.AD 2 Puff Inhale through mouth EVERY SIX HOURS NEEDED as needed for SHORTNESS OF BREATH Days = 30 Comments: NOT GIVEN IN HOSPITAL Tiotropium [place] (Spiriva) 18 MCG CAP.W.DEV 1 Capsule Inhale through mouth DAILY Qty = 30 Comments: NOT GIVEN IN HOSPITAL Pravastatin Sodium (Pravastatin Sodium) 80 MG TABLET 1 Tablet ORAL DAILY Comments: Last Taken: 08/17/16 Time: 4PM PM Vitamin B Complex (B Complex) 1 EACH TABLET 1 Tablet ORAL DAILY Comments: NOT GIVEN IN HOSPITAL Tramadol HCl (Tramadol HCl) 50 MG TABLET 1 Tablet ORAL Every 12 hours as needed as needed for headcahe and nasal congestion Qty = 10 Comments: NOT GIVEN IN HOSPITAL Magnesium Oxide (Magnesium Oxide) 400 MG TABLET 1 Tablet ORAL DAILY Qty = 30 Comments: NOT GIVEN IN HOSPITAL Insulin Aspart, Recombinant (Novolog Flexpen) 100 UNIT/ML INSULN.PEN 1 Units Inject into fatty tissue As Directed Qty = 1 Instructions: DIRECTED Comments: Last Taken: 08/17/16 Time: 12:15 PM Lactobac Cmb #3/Fos/Pantethine (Probiotic & Acidophilus Cap) 300MM-250 CAPSULE 1 Capsule ORAL TWICE DAILY Qty = 20 Comments: Last Taken: 08/17/16 Time: 9:15 AM Rivaroxaban (Xarelto) 15 MG TABLET 1 Tablet ORAL DAILY Qty = 30 Comments: Last Taken: 08/17/16 Time: 4 PM Start taking the following new medications: Prednisone (Prednisone) 10 MG TABLET 1 Tablet ORAL SEE INSTRUCTIONS Days = 30 No Refills Instructions: 2 TABS(20 MG) 09/07 - 09/09 1 TABS (10MG) FROM THEN THEREAFTER TILL SEEN BY HIS HYDROGRAPHER. Albuterol Sulfate (Albuterol Sulfate) 1.25 MG/3 ML VIAL.NEB 1 Vial Inhale Solution EVERY 4-6 HOURS as needed for COPD Qty = 150 No Refills Amiodarone HCl (Amiodarone HCl) 200 MG TABLET 1 Tablet ORAL THREE TIMES DAILY Days = 30 No Refills Furosemide (Lasix) 40 MG TABLET 1 Tablet ORAL TWICE DAILY Days = 30 No Refills Copies To: HEMANTH RAMIREZ MD, V. New: Furosemide (Lasix) 40 MG TABLET 1 Tablet ORAL TWICE DAILY Days = 30 Copies To: HEMANTH RAMIREZ MD, V.
--- NOTE | 2016-09-05 19:45 | PN- Pulmonary ---
Subjective HPI/Critical Care Issues: Doing well afebrile Objective Current Medications: Current Medications Sig/Clare Start time Last Medication Dose Route Stop Time Status Admin Acetaminophen 650 MG Q6P PRN 08/29 0930 AC PO Albuterol Sulfate 3 ML BID 08/31 2200 AC 09/05 INH 1205 Allopurinol 300 MG DAILY 08/29 1000 AC 09/05 PO 0822 Amiodarone HCl 200 MG TID 09/01 1000 AC 09/05 PO 1705 Budesonide/ 2 PUF BID 08/29 1000 AC 09/05 Formoterol Fumarate INH 0831 Diltiazem HCl 120 MG BID 08/31 2200 AC 09/05 PO 0823 Furosemide 40 MG 0800,1700 09/05 1700 AC 09/05 IV 1705 Furosemide 40 MG BID 09/04 1400 DC 09/05 IV 0822 Insulin Aspart 0 TIDAC 09/03 1200 AC 09/05 SC 1227 Insulin Detemir 14 UNITS BID 09/04 2200 AC 09/05 SC 0823 Lactobacillus 1 CAP BID 08/29 1000 AC 09/05 Acidophilus PO 0822 Lorazepam 1 MG Q4P PRN 09/03 1500 AC 09/03 IV 1453 Magnesium Oxide 400 MG DAILY 08/29 1000 AC 09/05 PO 0823 Oxycodone HCl 5 MG Q6PRN PRN 08/29 0930 DC PO Pravastatin Sodium 80 MG DAILY 08/29 1000 AC 09/05 PO 0822 Prednisone 30 MG DAILY 09/04 1003 AC 09/05 PO 0822 Rivaroxaban 15 MG DAILY 08/29 1000 AC 09/05 PO 0823 Sodium Chloride 2 SPRAY Q3P PRN 09/01 1530 AC 09/03 REGIS 1059 Tamsulosin HCl 0.4 MG DAILY 08/29 1000 AC 09/05 PO 0823 Tiotropium [place] 1 PUF DAILY 08/29 1000 AC 09/05 INH 0822 Tramadol HCl 50 MG Q6P PRN 08/29 0930 DC PO Vital Signs & I&O Last 24 Hrs of Vitals and I&O: Vital Signs Date Time Temp Pulse Resp B/P B/P Pulse O2 O2 Flow FiO2 Mean Ox Delivery Rate 09/05 1523 97.9 79 20 137/68 100 Nasal 3.0L Cannula 09/05 1207 94 Nasal 3.0L Cannula 09/05 0823 128/78 09/05 0800 94 Nasal 2.0L Cannula 09/05 0606 97.8 98 20 128/78 95 Nasal 2.0L Cannula 09/05 0047 96 97 09/05 0000 Nasal 2.0L Cannula 09/04 2200 98.2 100 20 132/60 92 Nasal 3.0L Cannula 09/04 2129 79 130/62 09/04 2048 96 Nasal 2.0L Cannula Intake & Output 09/05 1600 09/05 0800 09/05 0000 Intake Total 680 120 720 Output Total 550 1000 600 Balance 130 -880 120 Intake, Oral 680 120 720 Number 2 Bowel Movements Output, Urine 550 1000 600 Impression/Plan Impression/Plan Impression/Plan: Physical Exam General Appearance Alert, Oriented X3 Skin No Rashes, No Breakdown Neck Supple, No JVD Cardiovascular irregularly irregular rate and rhythm Lungs bilateral inspiratory wheeze on exam Abdomen Normal Bowel Sounds, Soft Neurological Normal Gait, Normal Speech Extremities 2 + pitting edema in lower extremities CT CHEST REVIEWED FROM 08/31 MPRESSION: 1. Moderate pulmonary emphysema and chronic bronchial wall thickening (likely chronic bronchitis) in both lungs. 2. Chest CT imaging findings, combined with a review of recent chest radiographs, suggests significant improvement in previously noted interstitial pulmonary edema. There is some residual subtle groundglass opacity in lower lung zones and small pleural effusions (right larger than left) associated with compressive atelectasis in the bases. No overt pneumonia. 3. Cardiomegaly and atherosclerotic disease of coronary arteries with right atrial and biventricular pacemaker in place. 4. Mild mediastinal lymphadenopathy, likely reactive in nature. 5. Atherosclerotic disease of the thoracic aorta and stable appearance of a focal aneurysmal outpouching of the left posterolateral wall of the descending thoracic aorta (image [id number], series 4). IMPRESSION This is a gentleman with paroxysmal atrial fibrillation on xeralto, significant COPD, biventricular pacer for a previous wide-complex rhythm, previous coronary artery disease, significant pulmonary hypertension, mitral regurgitation, diabetes, previous gout and osteoarthritis, currently on 24-hour oxygen with 40- pack-year smoking history who has quit smoking few yrs ago now here * Episode of PULM edema leading to resp failure (not copde) last night * PT with severe copd with worsening due to acute pulmonary edema with rapid atrial fibrillation with acute diastolic heart failure with recent intubation from acute diastolic heart failure. * Effusion due to chf no evidence of empyema etc * No clinical evidence suggestive of active bacterial infection in the lung and patient recently did have significant C. difficile colitis * Significant COPD WIth wheezing compounded by chf * Recent Cdiff colitis now status post antibiotic therapy no diarrhea * Recent bilateral epistaxis with nasal packing, was on abx for this, now better. PT continues to have sig anemia * Sig COPD with a right middle lobe bronchiectasis from his previous pneumonia with MRSA colonization. He also has been wheezing consistent with cardiac asthma with COPD exacerbation related to fluid overload * Paroxysmal atrial fibrillation with anticoagulation before, now on amiodarone with biventricular pacer. Pt failed electrical cardioversion on 08/31, now with sig tacy episode on excertion * Recent bronchiolitis with Previous small lung nodules * Chronic kidney disease with atrophic kidney. * Hypertension, gout, previous high blood sugar, previous gout. * Mild aortic aneurysm * BPH on Flomax RECOMMENDATION [id number] nebulizer Lasix prn Prednisone 30 slow taper May need ep eval Cardio following Strict sugar control Saline nasal spray q 3 hrs prn Prognosis guarded as he has end-stage COPD and recurrent heart failure
[2016-09-05 21:35] VITALS: BP 136/60
--- NOTE | 2016-09-06 07:19 | PN- Housestaff ---
Subjective Follow-up For: Acute diastolic hear failure with preserved ejection fraction acute hypoxic resp failure acute pulm edema Fatigue afib with rvr Complaints: no complaints Tele-Events Since Last Visit: s pacing - Subjective: i have personally examined the patient at bed side, he is sitting comfortable in n o acute distress Review of Systems Constitutional: Denies: see HPI. Cardiovascular: Reports: no symptoms. Respiratory: Reports: no symptoms. Objective Last 24 Hrs of Vital Signs/I&O Vital Signs Date Time Temp Pulse Resp B/P B/P Pulse O2 O2 Flow FiO2 Mean Ox Delivery Rate 09/06 0801 98.4 90 20 142/70 95 Nasal Cannula 09/06 0000 Nasal 2.0L Cannula 09/05 2243 131/71 09/05 2135 97.6 100 20 136/60 94 09/05 2114 94 Nasal 2.0L Cannula 09/05 1523 97.9 79 20 137/68 100 Nasal 3.0L Cannula 09/05 1207 94 Nasal 3.0L Cannula Intake & Output 09/06 1600 09/06 0800 09/06 0000 Intake Total 240 720 Output Total 500 800 Balance -260 -80 Intake, Oral 240 720 Output, Urine 500 800 Physical Exam General Appearance: Alert, Oriented X3, Cooperative, No Acute Distress Skin: No Rashes, No Breakdown, No Significant Lesion Skin Temp/Moisture Exam: Warm/Dry HEENT: Atraumatic, PERRLA, EOMI, Mucous Membr. moist/pink Neck: Supple Cardiovascular: Normal S1, Normal S2, No Murmurs Lungs: Clear to Auscultation, Normal Air Movement Abdomen: Normal Bowel Sounds, Soft, No Tenderness Neurological: Normal Speech, Strength at 5/5 X4 Ext, Normal Tone, Sensation Intact Extremities: No Clubbing, No Cyanosis, No Edema Assessment/Plan Assessment: 76-year-old gentleman with a past mental history significant for recurrent nosebleeds/epistaxis status post cauterization, atrial fibrillation on Xarelto, coronary artery disease (history of multiple stents), cardiomyopathy status post pacemaker/defibrillator, COPD(on 1 L of oxygen at bedtime), history of MRSA pneumonia June 2016, recently admitted to [facility] due to epistaxis and C. difficile colitis presented to the ED for further evaluation of worsening shortness of breath and cough. # Acute hypoxic respiratory failure: Improved -likely due to pulmonary edema secondary rapid A-fib. -pleural effusion due to heart failure - severe COPD due to acute pulmonary edema with rapid a fib -WBC HIGH is likely due to steroid use rather than infection -continue to Monitor on telemetry floor -Lasix 40 mg PO BID -Prednisone taper on 20 mg po (started today) -continue albuterol veb dose by half (1.25 mg) and use only PRN -TRC, oxygen . - pulmonology on board. # ACUTE DIASTOLIC HEART FAILURE with PrEF( due to rapid A fib with pulmoanry edema) -Improved -2/2 A FIB WITH RVR - continue to monitor on telemetery -lasix 40 mg po BID for pulm edema( we have to accept some additional renal dysfunction) -cxr today: Similar appearance to prior. Small right pleural effusion with associated airspace opacity # paroxysmal atrial fibrillation -currently pt is stable with improved heart rate. -continue cardizem 120 mg BID. -continue Amiodarone to 200 mg TID as per Dr. Ramirez recommendation _might need another cardioversion after two weeks. #History of coronary artery disease status post stents: -Echo done in June 2016:Normal size left ventricle. Mild to moderate concentric left ventricular hypertrophy. Left ventricular systolic function is mildly decreased with estimated ejection fraction 55-60%. There is mild postero- lateral hypokinesis seen -Continue aspirin and statins # History of chronic kidney disease(stage IIIB) creatinine and BUN are 1.8 and 64 , the same as yesterday continue Lasix ( mandatory for pulm edema ) as per dr ramirez #Bilateral low extremity Edema: improved # History of chronic normocytic anemia: stable, will follow up his CBC Give saline nasal spray every 3 hours to prevent epistasis and bacitracin ointment #insulin-dependent diabetes mellitus: will keep him on Novolog and levemir [address] Last on board. #History of gout * Continue home dose of allopurinol The patient is stable for discharge today. DVT prophylaxis: mechanical code: full code diet: chf and consistent carbohydrate Problem List: 1. Pleural effusion 2. Pulmonary edema 3. CAD (coronary artery disease) 4. History of paroxysmal atrial tachycardia 5. Acute and chronic respiratory failure with hypoxia 6. Acute diastolic CHF (congestive heart failure) 7. Gout 8. IDDM (insulin dependent diabetes mellitus) Pain Ratin Pain Location: N/A Pain Goal: Remain pain free Pain Plan: acetaminophen oxycodone Tomorrow's Labs & Rationales: N/A DVT/Prophylaxis: pharmacological
--- NOTE | 2016-09-06 07:41 | PN- Diabetes ---
Assessment/Plan Assessment: Patient feels a little better today. He is still short of breath. Steroids have been tapered to prednisone 30 mg once a day in the morning. Patient's fingerstick blood sugars yesterday were 217 before breakfast, 156 before lunch, 140 before dinner, and 216 at bedtime. This morning's fingerstick is 93 before breakfast. Patient's fingerstick sugars are much improved with tapering of his steroids. Patient may be going to a intermediate for rehabilitation. Plan: Suggest reduce Levemir to 10 units twice a day. Continue the present sliding- scale NovoLog before meals with a separate sliding-scale at bedtime. Subjective Subjective: Feels improved Review of Systems Constitutional: Denies: chills, fever. Cardiovascular: Denies: chest pain. Respiratory: Denies: short of breath. Gastrointestinal: Denies: abdominal pain, nausea, vomiting. Skin: Reports: no symptoms. Objective Last 24 Hrs of Vital Signs/I&O Vital Signs Date Time Temp Pulse Resp B/P B/P Pulse O2 O2 Flow FiO2 Mean Ox Delivery Rate 09/06 0000 Nasal 2.0L Cannula 09/05 2243 131/71 09/055 97.6 100 20 136/60 94 09/05 2114 94 Nasal 2.0L Cannula 09/05 1523 97.9 79 20 137/68 100 Nasal 3.0L Cannula 09/05 1207 94 Nasal 3.0L Cannula 09/05 0823 12809/05 0800 94 Nasal 2.0L Cannula Intake & Output 09/06 0809/06 0000 09/05 1600 Intake Total 720 680 Output Total 800 550 Balance -80 130 Intake, Oral 720 680 Number 2 Bowel Movements Output, Urine 800 550 Vital Signs Date Time Temp Pulse Resp B/P B/P Pulse O2 O2 Flow FiO2 Mean Ox Delivery Rate 09/06 0000 Nasal 2.0L Cannula 09/05 2243 131/71 09/05 2135 97.6 100 20 136/60 94 09/05 2114 94 Nasal 2.0L Cannula 09/05 1523 97.9 79 20 137/68 100 Nasal 3.0L Cannula 09/05 1207 94 Nasal 3.0L Cannula 09/05 0823 128/78 09/05 0800 94 Nasal 2.0L Cannula Intake & Output 09/06 0800 09/06 0000 09/05 1600 Intake Total 720 680 Output Total 800 550 Balance -80 130 Intake, Oral 720 680 Number 2 Bowel Movements Output, Urine 800 550 Physical Exam General Appearance: alert, awake, comfortable Head: normal appearance Neck: normal inspection Respiratory: normal breath sounds Cardiovascular: regular rate/rhythm Abdomen: normal bowel sounds, soft Extremities: normal inspection Current Medications: Current Medications Sig/Clare Start time Last Medication Dose Route Stop Time Status Admin Acetaminophen 650 MG Q6P PRN 08/29 0930 AC PO Albuterol Sulfate 3 ML BID 08/31 2200 AC 09/05 INH 2114 Allopurinol 300 MG DAILY 08/29 1000 AC 09/05 PO 0822 Amiodarone HCl 200 MG TID 09/01 1000 AC 09/05 PO 2243 Budesonide/ 2 PUF BID 08/29 1000 AC 09/05 Formoterol Fumarate INH 2246 Diltiazem HCl 120 MG BID 08/31 2200 AC 09/05 PO 2243 Furosemide 40 MG 0800,1700 09/05 1700 AC 09/05 IV 1705 Furosemide 40 MG BID 09/04 1400 DC 09/05 IV 0822 Insulin Aspart 0 TIDAC 09/03 1200 AC 09/05 SC 1227 Insulin Detemir 14 UNITS BID 09/04 2200 AC 09/05 SC 2244 Lactobacillus 1 CAP BID 08/29 1000 AC 09/05 Acidophilus PO 2243 Lorazepam 1 MG Q4P PRN 09/03 1500 AC 09/03 IV 1453 Magnesium Oxide 400 MG DAILY 08/29 1000 AC 09/05 PO 0823 Oxycodone HCl 5 MG Q6PRN PRN 08/29 0930 DC PO Pravastatin Sodium 80 MG DAILY 08/29 1000 AC 09/05 PO 0822 Prednisone 30 MG DAILY 09/04 1003 AC 09/05 PO 0822 Rivaroxaban 15 MG DAILY 08/29 1000 AC 09/05 PO 0823 Sodium Chloride 2 SPRAY Q3P PRN 09/01 1530 AC 09/03 REGIS 1059 Tamsulosin HCl 0.4 MG DAILY 08/29 1000 AC 09/05 PO 0823 Tiotropium [place] 1 PUF DAILY 08/29 1000 AC 09/05 INH 0822 Tramadol HCl 50 MG Q6P PRN 08/29 0930 DC PO Findings Pertinent Lab/[place] Results: Laboratory Tests 09/06 629 Chemistry Sodium Pending Potassium Pending Chloride Pending Carbon Dioxide Pending Anion Gap Pending BUN Pending Creatinine Pending BUN/Creatinine Ratio Pending Hematology CBC w Diff Pending WBC Pending RBC Pending Hgb Pending Hct Pending MCV Pending MCH Pending RDW Pending Plt Count Pending MPV Pending PUBS MCHC Pending
[2016-09-06 08:01] VITALS: BP 142/70
[2016-09-06 08:04] LABS: ABSOLUTE BASOPHIL COUNT 0 /CUMM (0.0-0.2); ABSOLUTE EOSINOPHIL COUNT 0.1 /CUMM (0.0-0.7); ABSOLUTE GRANULOCYTE CT 11.7 /CUMM (1.4-6.5); ABSOLUTE LYMPH COUNT 0.4 /CUMM (1.2-3.4); ABSOLUTE MONOCYTE COUNT 0.7 /CUMM (0.10-0.60); BASOPHIL % 0 % (0.0-2.0); EOSINOPHIL % 0.5 % (0-5); GRANULOCYTE % 91.3 % (42.2-75.2); HEMATOCRIT 28.1 % (42-52); MEAN CORPUSCULAR HGB 26.4 PG (27.0-31.0); MEAN CORPUSCULAR HGB CONC 32.4 G/DL (33.0-37.0); MEAN CORPUSCULAR VOLUME 81.6 FL (80.0-94.0); MEAN PLATELET VOLUME 7.4 FL (7.4-10.4); PLATELET COUNT 405 /CUMM (130-400); RBC DISTRIBUTION WIDTH 19.3 % (11.5-14.5); RED BLOOD CELL CT 3.44 /CUMM (4.70-6.10); WHITE BLOOD CELL COUNT 12.8 /CUMM (4.8-10.8)
[2016-09-06] MEDS ORDERED: PREDNISONE10 M2 PO ×2 (08:15→08:23)
--- NOTE | 2016-09-06 08:19 | RADIOLOGY REPORT ---
EXAMINATION: XR PORTABLE CHEST CLINICAL INFORMATION: Shortness of breath. COMPARISON: 09/04/2016 TECHNIQUE: Portable frontal view of the chest was obtained. FINDINGS: Left chest wall ICD/pacer is unchanged. Cardiac lead overlies the chest. The lungs are well expanded. There is a persistent small right pleural effusion with airspace opacity. No pneumothorax. No edema. The cardiomediastinal silhouette is unchanged, with a calcified aorta. IMPRESSION: Similar appearance to prior. Small right pleural effusion with associated airspace opacity.
[2016-09-06] MEDS ORDERED: LASIX40 M1 PO ×2 (08:22→14:36)
--- NOTE | 2016-09-06 12:07 | NUR ---
PHYSICAL THERAPY. PT RE-CONSULTED ON THIS Pt. CONFIRMED WITH RN THAT Pt CONTINUES TO AMBULATE I'LY WITH STEADY GAIT. RN PERFORMED AMBULATORY SATS. NO SKILLED PT INDICATED AT THIS TIME.
--- NOTE | 2016-09-06 12:53 | NUR ---
OXYGEN CHALLENGE PERFORMED WITH PATIENT. THE PATIENT WAS TAKEN OFF OF 2L NC, ON ROOM AIR FOR 15 MINUTES. AT REST THE O2 SATS 91% ON ROOM AIR. pATIENT AMBULATED AROUND ROOM, PATIENT DESATTED TO 86%. PATIENT PLACED ON 40% VENTI MASK, RECOVERED TO 96%, PLACED BACK ON 2LNC.
--- NOTE | 2016-09-06 13:21 | PN- Cardiology ---
Subjective Subjective: The patient is feeling much better today. His breathing is good. He has been out of bed but not ambulated in the hallway. Apparently an effort is being made to get approval for short-term rehabilitation. His chest x-ray today shows a little less vascular congestion but persistent right pleural effusion. Objective Vital Signs and I&Os Vital Signs Date Time Temp Pulse Resp B/P B/P Pulse O2 O2 Flow FiO2 Mean Ox Delivery Rate 09/06 1010 97 Nasal 2.0L Cannula 09/06 0934 90 142/70 09/06 0931 90 142/70 09/06 0801 98.4 90 20 142/70 95 Nasal Cannula 09/06 0800 Nasal 2.0L Cannula 09/06 0000 Nasal 2.0L Cannula 09/05 2243 131/71 09/05 2135 97.6 100 20 136/60 94 09/05 2114 94 Nasal 2.0L Cannula 09/05 1523 97.9 79 20 137/68 100 Nasal 3.0L Cannula Intake & Output 09/06 1600 09/06 0800 09/06 0000 09/05 1600 09/05 0800 09/05 0000 Intake Total 240 720 680 120 720 Output Total 500 321 453 3241 600 Balance -260 -80 130 -880 120 Intake, Oral 240 720 680 120 720 Number 2 Bowel Movements Output, Urine 500 145 514 0936 600 Physical Exam: He is in no distress HEENT exam is normal Chest reveals scattered wheezes and rhonchi Heart irregular rhythm and soft systolic murmur Extremities no edema Assessment/Plan Assessment/Plan Rob remains in atrial fibrillation, although he transiently converted to sinus rhythm with cardioversion. However, this did not hold. He is on a higher dose of Cardizem and amiodarone. However, he remains in atrial fibrillation. His rate is better controlled He developed respiratory failure probably due to acute on chronic diastolic heart failure on 09/03/2016. He is now on IV Lasix. Tre is nearly ready for discharge. Hopefully he can go to rehabilitation, otherwise he will go home with home health services. He is being discharged on Lasix 40 mg twice a day. We will also keep him on amiodarone load for another week or 2 and then try another cardioversion as an outpatient. Continue telemetry? Yes
[2016-09-06] MEDS ORDERED: PREDNISONE5 M1 PO (14:32)
[2016-09-06] MEDS ORDERED: AMIODARONE HCL200 M1 PO (14:36)
[2016-09-06 15:21] VITALS: BP 124/70
[2016-09-06 15:55] VITALS: BP 124/70
[2016-09-06] MEDS ORDERED: LANTUS SOL100 UNIT/1 SC (17:26)
--- NOTE | 2016-09-06 18:24 | PN- Pulmonary ---
Subjective HPI/Critical Care Issues: The patient is feeling much better today. His breathing is good. He has been out of bed but not ambulated in the hallway. Apparently an effort is being made to get approval for short-term rehabilitation. His chest x-ray today shows a little less vascular congestion but persistent right pleural effusion. Objective Current Medications: Current Medications Sig/Clare Start time Last Medication Dose Route Stop Time Status Admin Acetaminophen 650 MG Q6P PRN 08/29 0930 AC PO Albuterol Sulfate 3 ML BID 08/31 2200 AC 09/06 INH 0952 Allopurinol 300 MG DAILY 08/29 1000 AC 09/06 PO 0937 Amiodarone HCl 200 MG TID 09/01 1000 AC 09/06 PO 1555 Budesonide/ 2 PUF BID 08/29 1000 AC 09/06 Formoterol Fumarate INH 0937 Diltiazem HCl 120 MG BID 08/31 2200 AC 09/06 PO 0931 Furosemide 40 MG 7:30 AM, & 4:30 PM 09/06 0830 AC 09/06 PO 1554 Furosemide 40 MG 0800,1700 09/05 1700 DC 09/05 IV 1705 Insulin Aspart 0 TIDAC 09/03 1200 AC 09/05 SC 1227 Insulin Detemir 10 UNITS BID 09/06 1000 AC 09/06 SC 0940 Insulin Detemir 14 UNITS BID 09/04 2200 DC 09/05 SC 2244 Lactobacillus 1 CAP BID 08/29 1000 AC 09/06 Acidophilus PO 0935 Lorazepam 1 MG Q4P PRN 09/03 1500 AC 09/03 IV 1453 Magnesium Oxide 400 MG DAILY 08/29 1000 AC 09/06 PO 0932 Pravastatin Sodium 80 MG DAILY 08/29 1000 AC 09/06 PO 0933 Prednisone 20 MG DAILY 09/06 1000 AC 09/06 PO 0934 Prednisone 30 MG DAILY 09/04 1003 DC 09/05 PO 0822 Rivaroxaban 15 MG DAILY 08/29 1000 AC 09/06 PO 0937 Sodium Chloride 2 SPRAY Q3P PRN 09/01 1530 AC 09/03 REGIS 1059 Tamsulosin HCl 0.4 MG DAILY 08/29 1000 AC 09/06 PO 0931 Tiotropium [place] 1 PUF DAILY 08/29 1000 AC 09/06 INH 0935 Vital Signs & I&O Last 24 Hrs of Vitals and I&O: Vital Signs Date Time Temp Pulse Resp B/P B/P Pulse O2 O2 Flow FiO2 Mean Ox Delivery Rate 09/06 1555 99 124/70 09/06 1521 98.2 99 20 124/70 94 Nasal Cannula 09/06 1010 97 Nasal 2.0L Cannula 09/06 0934 90 142/70 09/06 0931 90 142/70 09/06 0801 98.4 90 20 142/70 95 Nasal Cannula 09/06 0800 Nasal 2.0L Cannula 09/06 0000 Nasal 2.0L Cannula 09/05 2243 131/71 09/05 2135 97.6 100 20 136/60 94 09/05 2114 94 Nasal 2.0L Cannula Intake & Output 09/06 1600 09/06 0800 09/06 0000 Intake Total 600 240 720 Output Total 500 800 Balance 600 -260 -80 Intake, Oral 600 240 720 Output, Urine 500 800 Impression/Plan Impression/Plan Impression/Plan: Physical Exam General Appearance Alert, Oriented X3 Skin No Rashes, No Breakdown Neck Supple, No JVD Cardiovascular irregularly irregular rate and rhythm Lungs bilateral inspiratory wheeze on exam Abdomen Normal Bowel Sounds, Soft Neurological Normal Gait, Normal Speech Extremities 1 + pitting edema in lower extremities CT CHEST REVIEWED FROM 08/31 MPRESSION: 1. Moderate pulmonary emphysema and chronic bronchial wall thickening (likely chronic bronchitis) in both lungs. 2. Chest CT imaging findings, combined with a review of recent chest radiographs, suggests significant improvement in previously noted interstitial pulmonary edema. There is some residual subtle groundglass opacity in lower lung zones and small pleural effusions (right larger than left) associated with compressive atelectasis in the bases. No overt pneumonia. 3. Cardiomegaly and atherosclerotic disease of coronary arteries with right atrial and biventricular pacemaker in place. 4. Mild mediastinal lymphadenopathy, likely reactive in nature. 5. Atherosclerotic disease of the thoracic aorta and stable appearance of a focal aneurysmal outpouching of the left posterolateral wall of the descending thoracic aorta (image [id number], series 4). IMPRESSION This is a gentleman with paroxysmal atrial fibrillation on xeralto, significant COPD, biventricular pacer for a previous wide-complex rhythm, previous coronary artery disease, significant pulmonary hypertension, mitral regurgitation, diabetes, previous gout and osteoarthritis, currently on 24-hour oxygen with 40- pack-year smoking history who has quit smoking few yrs ago now here * PT with severe copd with worsening due to acute pulmonary edema with rapid atrial fibrillation with acute diastolic heart failure with recent intubation from acute diastolic heart failure. * Effusion due to chf no evidence of empyema etc * No clinical evidence suggestive of active bacterial infection in the lung and patient recently did have significant C. difficile colitis * Significant COPD WIth wheezing compounded by chf * Recent Cdiff colitis now status post antibiotic therapy no diarrhea * Recent bilateral epistaxis with nasal packing, was on abx for this, now better. PT continues to have sig anemia * Sig COPD with a right middle lobe bronchiectasis from his previous pneumonia with MRSA colonization. He also has been wheezing consistent with cardiac asthma with COPD exacerbation related to fluid overload * Paroxysmal atrial fibrillation with anticoagulation before, now on amiodarone with biventricular pacer. Pt failed electrical cardioversion on 08/31, now with sig tacy episode on excertion * Recent bronchiolitis with Previous small lung nodules * Chronic kidney disease with atrophic kidney. * Hypertension, gout, previous high blood sugar, previous gout. * Mild aortic aneurysm * BPH on Flomax RECOMMENDATION [id number] nebulizer Lasix prn Prednisone 10 mg and slow taper May need ep eval Cardio following Strict sugar control Saline nasal spray q 3 hrs prn ok to dc
== END 2016-09-06 18:45 | disposition home health service (06) | DRG 291 ==
LOC: ERH 07:08 → ERHI 08:34 → 1NO 08:34 → ENRESERV 10:45 → CANRESERV 10:45 → ENRESERV 20:56 → ENTRNSPT 22:16 → 1NO 22:20 → CMPTRNSPT 22:31 → 1NO 08-30 09:03 → ENPENDDIS 09-06 14:40 → 1NO 09-06 18:45
PROVIDERS: Emergency Medicine; Student in an Organized Health Care Education/Training Program; ADMIT Internal Medicine
PROC: 5A2204Z Restoration of Cardiac Rhythm, Single (ICD-10-PCS; principal; 2016-08-31)
DX: I13.0 Hypertensive heart and chronic kidney disease with heart failure and stage 1 through stage 4 chronic kidney disease, or unspecified chronic kidney disease (principal); I50.33 Acute on chronic diastolic (congestive) heart failure; J96.21 Acute and chronic respiratory failure with hypoxia; N17.9 Acute kidney failure, unspecified; J18.9 Pneumonia, unspecified organism; E11.22 Type 2 diabetes mellitus with diabetic chronic kidney disease; N18.3 Chronic kidney disease, stage 3 (moderate); I27.2 Other secondary pulmonary hypertension; I42.9 Cardiomyopathy, unspecified; J44.1 Chronic obstructive pulmonary disease with (acute) exacerbation; I48.2 Chronic atrial fibrillation; F41.9 Anxiety disorder, unspecified; Z79.01 Long term (current) use of anticoagulants; I25.10 Atherosclerotic heart disease of native coronary artery without angina pectoris; Z95.5 Presence of coronary angioplasty implant and graft; N40.0 Benign prostatic hyperplasia without lower urinary tract symptoms; M10.9 Gout, unspecified; I71.9 Aortic aneurysm of unspecified site, without rupture; Z95.0 Presence of cardiac pacemaker; D64.9 Anemia, unspecified; Z86.14 Personal history of Methicillin resistant Staphylococcus aureus infection
CPT/HCPCS: 1NP; 36415; 82436; 87040; 87070; 87086; 93005; 93010; 96365; 96375; 97161-GP; 97530-GO; J0713; J1815; J1940; J2060; J2405; J2920; J2930; J3490; J7512

== ENCOUNTER 2016-09-10 06:35 | Inpatient (IN) | payer OTHER ==
[~2016-09-10] VITALS: Ht 175.3 cm; Wt 85.3 kg
[~2016-09-10 06:35] MED LIST changes: +ALBUTEROL1.25 MG/1 INH/SOL; +AMIODARONE HCL400 M1 PO; +LANTUS SOL100 UNIT/1 SC
--- NOTE | 2016-09-10 06:44 | ED DYSPNEA/ASTHMA COMPLAINT ---
See Addendum History of Present Illness General Chief Complaint: Dyspnea (COPD, CHF, Other) Stated Complaint: BIBA,SOB Source: patient, old records, EMS Exam Limitations: no limitations Vital Signs & Intake/Output Vital Signs & Intake/Output Vital Signs Date Time Temp Pulse Resp B/P B/P Pulse O2 O2 Flow FiO2 Mean Ox Delivery Rate 09/10 0651 95 Nasal 2.0L Cannula 09/10 0639 95.5 115 23 129/87 97 Room Air Allergies Coded Allergies: NO KNOWN ALLERGIES (UNKNOWN 08/10/16) Triage Nurses Notes Reviewed? yes Onset: Gradual Duration: hour(s): Timing: recent history Severity: moderate Activities at Onset: none Prior Episodes/Possible Cause: occasional episodes Modifying Factors: Improves With: rest, other (better w/nebs en route). Associated Symptoms: cough, wheezing HPI: 76 yo gentleman h/o copd, chf, afib, on 2l nc home 02 presents with cough, wheezing, and dyspnea that began early this morning. He had been giving himself albuterol without significant improvement. 911 called. The medics found him dyspneic with 02 sat in the low 80's on 4 liters nasal cannula. The medics gave duo neb x 3, solumedrol 125mg iv. Upon arrival to ED, he shares that he is feeling better. He shares that he developed a cough last night, but no significant sputum production. He notes no chest pain, fever, chills. His lower extremities are swollen at their baseline. His orthopnea is at baseline. He is otherwise well. (SHWETHA LONGORIA,EDNA Billy) Reconcile Medications Albuterol Sulfate 1.25 MG/3 ML VIAL.NEB 1 Vial INH/ASHLEY Q4-6 PRN COPD Albuterol Sulfate (Ventolin Hfa) 18 GM HFA.AER.AD 2 PUF INH Q6P PRN SHORTNESS OF BREATH Allopurinol 300 MG TABLET 1 TAB PO DAILY GOUT (Reported) Amiodarone HCl 200 MG TABLET 1 TAB PO TID atrial fibrillation Fluticasone/Vilanterol (Breo Ellipta 100-25 Mcg INH) 100 MCG-25 MCG/DOSE BLST.W.DEV 1 PUFF INH DAILY BREATHING PROBLEMS (Reported) Furosemide (Lasix) 40 MG TABLET 1 TAB PO BID HEART FAILURE Insulin Aspart, Recombinant (Novolog Flexpen) 100 UNIT/ML INSULN.PEN 1 UNITS SC AD DM DIRECTED Insulin Glargine,Hum.rec.anlog (Lantus Solostar) 100 UNIT/ML (3 ML) INSULN.PEN 10 UNITS SC BID DIABETES Lactobac Cmb #3/Fos/Pantethine (Probiotic & Acidophilus Cap) 300MM-250 CAPSULE 1 CAP PO BID DIARRHEA Magnesium Oxide 400 MG TABLET 1 TAB PO DAILY SUPPLEMENT (Reported) Multivit-Min/FA/Lycopen/Lutein (Centrum Silver Tablet) 0.4 MG-300 MCG-250 MCG TABLET 1 TAB PO DAILY VITAMIN SUPPORT (Reported) Pravastatin Sodium 80 MG TABLET 1 TAB PO DAILY HLD (Reported) Rivaroxaban (Xarelto) 15 MG TABLET 1 TAB PO DAILY Afib (Reported) Tamsulosin HCl (Flomax) 0.4 MG CAP.ER.24H 1 CAP PO DAILY PROSTATE (Reported) Tiotropium [place] (Spiriva) 18 MCG CAP.W.DEV 1 CAP INH DAILY COPD (Reported) Tramadol HCl 50 MG TABLET 1 TAB PO Q12P PRN headcahe and nasal congestion Vitamin B Complex (B Complex) 1 EACH TABLET 1 TAB PO DAILY VITAMIN SUPPORT ( Reported) (EDDIE COUCH DO) Past History Travel History Traveled to [place] past 21 day No Medical History Any Pertinent Medical History? 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 Relation not specified for: Fam hx-ischem heart disease Fam hx-ischem heart disease Hx Contributory? No (SHWETHA LONGORIA,EDNA Billy) Review of Systems Review of Systems Constitutional: Reports: no symptoms. EENTM: Reports: no symptoms. Respiratory: Reports: no symptoms. Cardiovascular: Reports: no symptoms. GI: Reports: no symptoms. Genitourinary: Reports: no symptoms. Musculoskeletal: Reports: no symptoms. Skin: Reports: no symptoms. Neurological/Psychological: Reports: no symptoms. Hematologic/Endocrine: Reports: no symptoms. Immunologic/Allergic: Reports: no symptoms. All Other Systems: Reviewed and Negative (SHWETHA LONGORIA,EDNA Billy) Physical Exam Physical Exam General Appearance: well developed/nourished, mild distress, moderate distress Head: atraumatic, normal appearance Eyes: Bilateral: normal appearance. Ears, Nose, Throat: normal pharynx, normal ENT inspection Neck: normal inspection, supple, full range of motion Respiratory: chest non-tender, bilateral inspiratory and expiratory wheezing. Cardiovascular: regular rate/rhythm Gastrointestinal: normal bowel sounds, soft, non-tender, no organomegaly Extremities: 2+ pedal edema at ankles, symmetrical. Neurologic/Psych: no motor/sensory deficits, awake, alert, oriented x 3 Skin: intact, normal color, warm/dry Core Measures ACS in differential dx? No Severe Sepsis Present: No Septic Shock Present: No (SHWETHA LONGORIA,EDNA Billy) Progress Differential Diagnosis: asthma, CHF, COPD, pneumonia Plan of Care: Orders Procedure Date/time Status BLOOD CULTURE 09/10 0650 Active BLOOD CULTURE 09/10 0646 Active TROPONIN LEVEL 09/10 0644 Complete COMPREHENSIVE METABOLIC PANEL 09/10 0644 Complete CBC WITHOUT DIFFERENTIAL 09/10 0644 Complete B-TYPE NATRIURETIC PEP (BNP) 09/10 0644 Complete EKG 09/10 0637 Active Laboratory Tests 09/10/ 0654: Anion Gap 7, Estimated GFR 42 L, BUN/Creatinine Ratio 29.4 H, Glucose 64 L, Calcium 7.9 L, Total Bilirubin 0.4, AST 176 H, ALT 128 H, Alkaline Phosphatase 200 H, Troponin I 0.11 *H, Pgj-B-Ugovbsgoncr Pept 56504 H, Total Protein 5.4 L, Albumin 3.0 L, Globulin 2.4, Albumin/Globulin Ratio 1.3, CBC w Diff MAN DIFF ORDERED, RBC 3.80 L, MCV 82.2, MCH 26.2 L, RDW 19.5 H, MPV 7.2 L, Gran % 86.0 H, Lymphocytes % 8.7 L, Monocytes % 4.6, Eosinophils % 0.7, Basophils % 0 L, Absolute Granulocytes 13.3 H, Segmented Neutrophils 81 H, Absolute Lymphocytes 1.3, Lymphocytes 8 L, Monocytes 9, Absolute Monocytes 0.7 H, Eosinophils 2, Absolute Eosinophils 0.1, Absolute Basophils 0, Platelet Estimate ADEQUATE, Polychromasia 1+, Hypochromic-Microcytic 1+, Poikilocytosis 1 +, Ovalocytes 1+, Elliptocytes FEW, PUBS MCHC 31.9 L, Fld Total RBCs Counted 100 Microbiology 09/10 740 BLOOD: Blood Culture - RECD 09/10 702 BLOOD: Blood Culture - RECD Diagnostic Imaging: Viewed by Me: Radiology Read. Discussed w/RAD: Radiology Read. Initial ED EKG: ventricular paced rhythm w. afib Hand-Off Endorsed To: EDDIE COUCH DO Endorsed Time: 0700 Pending: labs, Xray (SHWETHA LONGORIA,EDNA Billy) Departure Departure Disposition: STILL A PATIENT Condition: Stable Clinical Impression Primary Impression: COPD exacerbation Referrals: SCARLETT WATT MD (PCP/Family) Departure Forms: Customer Survey General Discharge Information (SHWETHA LONGORIA,EDNA Billy) Departure Comments 09/10/16 8 AM The patient was signed out to me by Dr. Phillip 7 AM. Currently he has no chest pain or difficulty breathing. He remains in rapid A. fib with average ventricular rate of approximately 115. He had a positive troponin. Dr. Ramirez was paged. (EDDIE COUCH DO) Critical Care Note Critical Care Note Critical Care Time: 30-74 min (SHWETHA LONGORIA,EDNA Billy)
--- NOTE | 2016-09-10 06:48 | NUR ---
AT BEDSIDE. 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 PT WEARS 2L O2 AT BASELINE. PT 95% ON DUONEB TREATMENT. EKG IN PROGRESS.
--- NOTE | 2016-09-10 06:48 | NUR ---
PT BIBA C/O DIFFICULTY BREATHING. PT STATES HE HAS HX OF COPD AND PNEUMONIA. WAS RECENTLY DC'D FROM THE ICU WHERE PT WAS INTUBATED. PT TOOK OWN DUONEB WITHOUT RELIEF AT HOME. PT RECIEVED 3 DUO NEB TREATMENTS AND 125MG SOLUMEDROL BY EMS. PT ARRIVES IN NO ACUTE DISTRESS, DENIES ANY SOB/CP ON ARRIVAL.
--- NOTE | 2016-09-10 06:49 | NUR ---
PT STATES "I DO NOT WANT TO STAY HERE! JUST GET THE BLOODWORK AND THEN WE WILL GO FROM THERE"
--- NOTE | 2016-09-10 06:54 | NUR ---
EKG DONE AND SHOWN TO DR. TADEO.
--- NOTE | 2016-09-10 06:55 | NUR ---
DEFIB/PACER LCW. PRODUCTIVE COUGH NOTED. O2 SAT 98% DURING NEBULIZER TREAMENT. PITTING EDEMA MARY FEET. PT STATES PEDAL EDEMA "WAS PRETTY GOOD WHEN I GOT DISCHARGED LAST SATURDAY. IT'S BEEN GETTING WORSE EVERY DAY SINCE THEN"
[2016-09-10 07:02] LABS: ABSOLUTE BASOPHIL COUNT 0 /CUMM (0.0-0.2); ABSOLUTE EOSINOPHIL COUNT 0.1 /CUMM (0.0-0.7); ABSOLUTE GRANULOCYTE CT 13.3 /CUMM (1.4-6.5); ABSOLUTE LYMPH COUNT 1.3 /CUMM (1.2-3.4); ABSOLUTE MONOCYTE COUNT 0.7 /CUMM (0.10-0.60); BASOPHIL % 0 % (0.0-2.0); EOSINOPHIL % 0.7 % (0-5); HEMATOCRIT 31.3 % (42-52); MEAN CORPUSCULAR HGB 26.2 PG (27.0-31.0); MEAN CORPUSCULAR HGB CONC 31.9 G/DL (33.0-37.0); MEAN CORPUSCULAR VOLUME 82.2 FL (80.0-94.0); MEAN PLATELET VOLUME 7.2 FL (7.4-10.4); PLATELET COUNT 318 /CUMM (130-400); RBC DISTRIBUTION WIDTH 19.5 % (11.5-14.5); WHITE BLOOD CELL COUNT 15.5 /CUMM (4.8-10.8)
--- NOTE | 2016-09-10 07:43 | RADIOLOGY REPORT ---
EXAMINATION: XR PORTABLE CHEST CLINICAL INFORMATION: Hypoxia COMPARISON: 09/06/2016 TECHNIQUE: Portable 85 degrees upright view of the chest was obtained. FINDINGS: Bilateral small to moderate right and small left-sided pleural effusions are unchanged. Associated patchy bibasilar opacities. No evidence of pneumothorax. Mild vascular congestion without interstitial edema. Dual-lead ICD is identified. The cardiac silhouette is not enlarged. IMPRESSION: Normal cardiac size. Bilateral pleural effusions, right greater than left side are unchanged. Vascular congestion without interstitial edema. No change.
--- NOTE | 2016-09-10 07:50 | NUR ---
CRITICAL TEST RESULTS [id number] SONDRA CANO 76 M TESTS AND RESULTS: TROPONIN 0.11 Results received and read back by: ZACKERY TRACY Results received date and time: 09/10/16 0751 The following provider was notified of the results, and read the results back: MD COUCH Notified date and time: 09/10/16 at 0751
--- NOTE | 2016-09-10 07:53 | NUR ---
ASSUMED CARE OF PT AT THIS TIME PT AWAKE, ALERT AND ORIENTED. PT FINISHED BREATHING TX, SAT 91-94% ON 2L (BASELINE). PT DENIES FEELING SOB CURRENTLY. DENIES PAIN. STATES "I GOT EXCITED OVER SOMETHING THIS MORNING AND THATS WHAT STARTED IT ALL. I FEEL BETTER NOW". PT NOTED WITH PACER/DEFIB ON L CHEST WALL. PACER SPIKES NOTED ON MONITOR. RATE LOW 100'S. MED WITH ROCEPHIN AND ZITHROMAX INFUSING PER APR PT REQUESTING BREAKFAST, ORDERED - OK WITH DR COUCH AWAITING FURTHER DISPO
--- NOTE | 2016-09-10 08:03 | NUR ---
DR COUCH AT THE BEDSIDE DISCUSSING RESULTS/POC ANTICIPATE ADMISSION
--- NOTE | 2016-09-10 08:31 | NUR ---
PT GIVEN BREAKFAST TRAY. DR COUCH INTO DISCUSS ADMISSION
--- NOTE | 2016-09-10 08:52 | NUR ---
MED WITH ASA PER APR. PT REMAINS WITHOUT ACUTE DISTRESS 02 SAT 91-94% ON 3L. HR LOW 90'S TO LOW 100'S PT STATES HE HAS NOT TAKEN HIS DAILY MEDS TODAY. DR COUCH INFORMED OF SAME.
--- NOTE | 2016-09-10 09:15 | NUR ---
PT STATES HE HAS NOT TAKEN ALL OF HIS DAILY MEDS TODAY DR COUCH INFORMED. PER MD, PT TO GET AMIODARONE AND LASIX THIS MORNING MEDICATED WITH SAME. CONTINUES TO DENY COMPLAINTS.
--- NOTE | 2016-09-10 09:46 | NUR ---
CARDIOLOGY, DR RODRIGUEZ, AT THE BEDSIDE
--- NOTE | 2016-09-10 10:41 | NUR ---
PT DENIES NEEDING ANYTHING AT THIS TIME SAT 95% ON 3L. HR RANGE 88-121 PT CONVERSING WITH AT THIS TIME AWARE HE IS WAITING ON BED ASSIGNMENT
--- NOTE | 2016-09-10 11:01 | History & Physical ---
See Addendum General Information and HPI MD Statement: I have seen and personally examined SONDRA CANO and documented this H&P. The patient is a 76 year old M who presented with a patient stated chief complaint of [SOB]. Source of Information: patient, family Exam Limitations: no limitations History of Present Illness: Patient is a 76-year-old gentleman with a past mental history significant for recurrent nosebleeds/epistaxis status post cauterization, atrial fibrillation on Xarelto, coronary artery disease (history of multiple stents), cardiomyopathy status post pacemaker/defibrillator, COPD (on 2 L of oxygen at bedtime), history of MRSA pneumonia in June 2016, and C. difficile colitis. He reports not beeing able to sleep last night for some reason and then subsequently developed SOB and cough with whitish to yellowish sputum early this morning around 5 am. He also had associated wheexing and is HR on the pulse oximeter was 145-150 and O2 sats in the 80s. He took 2 breathing treatments and took 5mg of diazepam which helped him calm down and his HR started dropping to 100-120s. He increased his O2 to 2.5 liters. He also reports that his rate dropped at one time to 67 during that episode and that has never happened before. He denies CP, palpitations, headache, nausea or vomiting, fever or chills. He usually goes into flash pulm edema whenever he gets into rapid afib and says he does not feel anything. He denies orthorpnea or PND but says he has been sleeping in a recliner for years even before he was first diagnosed with any cardiac issues as he only feels comfortable sleeping in a sitting position. He was recently discharged from [facility] for acute respiratory failure 2 /2 possible PNA and COPD exacerbation and rapid afib 4 days ago and had been doing well except for increasing swelling on his lower extremities. He had a cardioversion during that admission which did not takeand had to be started on amiodarone which he is still taking, a repeat cardioversion is planned. He is currently on a prednisone taper from his last admission. Allergies/Medications Allergies: Coded Allergies: NO KNOWN ALLERGIES (UNKNOWN 08/10/16) Home Med list Albuterol Sulfate 1.25 MG/3 ML VIAL.NEB 1 Vial INH/ASHLEY Q4-6 PRN COPD Albuterol Sulfate (Ventolin Hfa) 18 GM HFA.AER.AD 2 PUF INH Q6P PRN SHORTNESS OF BREATH Allopurinol 300 MG TABLET 1 TAB PO DAILY GOUT (Reported) Amiodarone HCl 200 MG TABLET 1 TAB PO TID atrial fibrillation Bacitracin 500 UNIT/GRAM OINT...G. 1 DANIEL TOP 2200 NASAL PROBLEMS (Reported) apply to affected area(s) Fluticasone/Vilanterol (Breo Ellipta 100-25 Mcg INH) 100 MCG-25 MCG/DOSE BLST.W.DEV 1 PUFF INH DAILY BREATHING PROBLEMS (Reported) Furosemide (Lasix) 40 MG TABLET 1 TAB PO BID HEART FAILURE Insulin Aspart, Recombinant (Novolog Flexpen) 100 UNIT/ML INSULN.PEN 1 UNITS SC AD DM DIRECTED Insulin Glargine,Hum.rec.anlog (Lantus Solostar) 100 UNIT/ML (3 ML) INSULN.PEN 10 UNITS SC BID DIABETES Lactobac Cmb #3/Fos/Pantethine (Probiotic & Acidophilus Cap) 300MM-250 CAPSULE 1 CAP PO BID DIARRHEA Magnesium Oxide 400 MG TABLET 1 TAB PO DAILY SUPPLEMENT (Reported) Multivit-Min/FA/Lycopen/Lutein (Centrum Silver Tablet) 0.4 MG-300 MCG-250 MCG TABLET 1 TAB PO DAILY VITAMIN SUPPORT (Reported) Pravastatin Sodium 80 MG TABLET 1 TAB PO DAILY HLD (Reported) Rivaroxaban (Xarelto) 15 MG TABLET 1 TAB PO DAILY Afib (Reported) Sodium Chloride (Saline Nasal [place]) 0.65 % SPRAY 1 SPRAY NASB Q3 DRY NOSE ( Reported) Tamsulosin HCl (Flomax) 0.4 MG CAP.ER.24H 1 CAP PO DAILY PROSTATE (Reported) Tiotropium [place] (Spiriva) 18 MCG CAP.W.DEV 1 CAP INH DAILY COPD (Reported) Vitamin B Complex (B Complex) 1 EACH TABLET 1 TAB PO DAILY VITAMIN SUPPORT ( Reported) Compliance With Home Meds: GOOD Past History Travel History Traveled to [place] past 21 day No Medical History Neurological: NONE EENT: epistaxis, HEARING LOSS Cardiovascular: AFIB, CHF, hypertension, hyperlipidemia, STENTS x 5 LCW PACER/ DEBRILLATOR Respiratory: COPD, pneumonia Gastrointestinal: NONE Hepatic: NONE Renal: NONE Musculoskeletal: gout, osteoarthritis Psychiatric: NONE Endocrine: diabetes Blood Disorders: NONE Cancer(s): NONE 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 Relation not specified for: Fam hx-ischem heart disease Fam hx-ischem heart disease Psychosocial History Who Do You Live With? spouse Services at Home: None Primary Language: Venezuelan Smoking Status: Former Smoker ETOH Use: denies use Functional Ability ADLs Independent: dressing, eating, toileting, bathing. Ambulation: independent IADLs Independent: shopping, housework, finances, food prep, telephone, transportation , medication admin. Review of Systems Review of Systems Constitutional: Reports: no symptoms. Cardiovascular: Reports: peripheral edema. Denies: chest pain, palpitations. Respiratory: Reports: cough, short of breath, sputum production, wheezing. Denies: hemoptysis. Genitourinary: Denies: discharge, dysuria, frequency, hematuria. Exam & Diagnostic Data Last 24 Hrs of Vital Signs/I&O Vital Signs Date Time Temp Pulse Resp B/P B/P Pulse O2 O2 Flow FiO2 Mean Ox Delivery Rate 09/10 1208 97.2 102 19 133/80 09/10 1147 97.2 102 19 133/80 94 Nasal 3.5L Cannula 09/10 1041 96.2 110 18 130/96 95 Nasal 3.0L Cannula 09/10 0914 96.5 96 18 130/58 09/10 0852 96.5 96 18 130/58 93 Nasal 3.0L Cannula 09/10 0651 95 Nasal 2.0L Cannula 09/10 0639 95.5 115 23 129/87 97 Room Air Intake & Output 09/10 1600 09/10 0800 09/10 0000 Intake Total 250 0 Output Total Balance 250 0 Intake, IV 250 Intake, Oral 0 Patient 184 lb Weight Physical Exam General Appearance Alert, Oriented X3, Cooperative, No Acute Distress Skin No Significant Lesion HEENT Atraumatic, PERRLA, Mucous Membr. moist/pink Neck Supple, No JVD Cardiovascular irregularly Irregular HR Lungs Wheezing throughout, bibasilar crackles Abdomen Normal Bowel Sounds, Soft, No Tenderness Extremities 1+ pedal edema bilaterally Last 24 Hrs of Labs/[place]: Laboratory Tests 09/10/16 1204: Troponin I Pending 09/10/16 0654: Anion Gap 7, Estimated GFR 42 L, BUN/Creatinine Ratio 29.4 H, Glucose 64 L, Calcium 7.9 L, Magnesium 2.0, Total Bilirubin 0.4, AST 176 H, ALT 128 H, Alkaline Phosphatase 200 H, Troponin I 0.11 *H, Tix-Q-Zawdvtozvyb Pept 69936 H , Total Protein 5.4 L, Albumin 3.0 L, Globulin 2.4, Albumin/Globulin Ratio 1.3 , CBC w Diff MAN DIFF ORDERED, RBC 3.80 L, MCV 82.2, MCH 26.2 L, RDW 19.5 H, MPV 7.2 L, Gran % 86.0 H, Lymphocytes % 8.7 L, Monocytes % 4.6, Eosinophils % 0.7, Basophils % 0 L, Absolute Granulocytes 13.3 H, Segmented Neutrophils 81 H, Absolute Lymphocytes 1.3, Lymphocytes 8 L, Monocytes 9, Absolute Monocytes 0.7 H, Eosinophils 2, Absolute Eosinophils 0.1, Absolute Basophils 0, Platelet Estimate ADEQUATE, Polychromasia 1+, Hypochromic-Microcytic 1+, Poikilocytosis 1 +, Ovalocytes 1+, Elliptocytes FEW, PUBS MCHC 31.9 L, Fld Total RBCs Counted 100 Microbiology 09/10 1208 URINE ROUT: Urine Culture - ORD 09/10 0741 BLOOD: Blood Culture - RECD 09/10 07 BLOOD: Blood Culture - RECD Diagnostic Data EKG Results Afib with paced rhytym, rate 108, Qtc 601 CXR Results Normal cardiac size. Bilateral pleural effusions, right greater than left side are unchanged. Vascular congestion without interstitial edema. No change. Assessment/Plan Assessment: Patient is a 76-year-old gentleman with a past mental history significant for recurrent nosebleeds/epistaxis status post cauterization, atrial fibrillation on Xarelto, coronary artery disease (history of multiple stents), cardiomyopathy status post pacemaker/defibrillator, COPD(on 2 L of oxygen at bedtime), history of MRSA pneumonia June 2016, epistaxis and C. difficile colitis. Recently discharged from [facility] for acute respiratory failure 2/2 PNA and COPD exacerbation #1 Acute hypoxic respiratory failure 2/2 COPD exacerbation and acute on chronic CHF exacerbation Admit to telemetry floor CXR shows bilateral pulm effusion and vascular congestion IV lasix 40mg daily IV solumedrol 40mg BID Chip Person consult-Dr Nhan Shell Continue his home meds #2 NSTEMI vs demand ischemia More likely demand ischemia Elevated trop 0.11; repeat was 0.09 EKG shows paced rhythm in afib; no obvious ST changes appreciated Will continue to trend Trops and EKG Cardiogist consult-Dr. Ramirez #3 COPD exacerbation He recieved a dose of IV solumedrol 125mg in the ambulance enroute Continue IV solumedrol 40mg BID TRC nebs Continue Spiriva Sputum culture Pulm consult-Dr. Shell #4 History of atrial fibrillation with RVR: Monitor on telemetry Pt is not on a beta elo; will start him on a low dose of beta elo 6.25mg BID Continue amiodarone 200mg TID Continue Xarelto Cardiology consult- Dr. Ramirez #4 Acute of Chronic Heart failure with preserved ejection fraction: Elevated pro [id number] Continue IV lasix 40mg daily Last Echo fron June 2016 showed Left ventricular systolic function is mildly decreased with estimated ejection fraction 55-60% with mild postero-lateral hypokinesis. Repeat ECHO #5 Diabetes mellitus: Patient presented with a low BG of 64 on admission which increased to 264 after a meal and likely also contributed to by high dose solumedrol administered enroute to the ED Continue Accu-Checks TIDAC and HS NovoLog sliding scale and levemir Diabetic diet Endocrinology consult-Dr. Last #6 Chronic kidney disease stage IIIB: His creatinine of 1.6 seems to be at baseline Will continue low dose Lasix because the last time it was held due to worsening creatinine, patient went into flash pulmonary edema Daily BEP while on IV Lasix #7 Mild Hypokalemia Potassium today is 3.4 Will replete with potassium 40mg x 1 Will check magnesium Keep K+ >4 and Mag > 2 #8 QTC prolongation EKG shows a QTc of 601; repeat is 577 Possibly due to amiodarone used in treating his afib Close monitoring of QTc due to high risk of ventricular arrythmias possibly consider discontinuing amiodarone #9 Elevated White count Possibly due to steroids; Hold antibiotics for now; was given a dose of antibiotics in the ED CXR does not show any PNA, no urinary symptoms or fever Sputum culture Blood cultures x 2 drawn Will check UA and Urine culture daily CBC Watch for fevers #10 Transaminitis Likely shock liver from sudden hypoxia Will check LDH Will repeat LFTs in am Full Code Mild Pain pathway DVT ppx with xarelto As Ranked By This Provider Problem List: 1. Acute and chronic respiratory failure with hypoxia 2. Acute diastolic CHF (congestive heart failure) 3. COPD (chronic obstructive pulmonary disease) 4. Diabetes 5. Leukocytosis 6. Pleural effusion Core Measures/Miscellaneous Acute Coronary Syndrome ACS Diagnosis: Yes Date of most recent Echo 07/17/16 Last Known EF % 60 No JEAN-PAUL/ARB d/t EF > 40 ASA W/I 24hr of admit Yes Beta-Elo W/I 24hrs Yes LDL assessed W/I 24 hrs Yes Currently on Statin Yes Cerebrovascular Accident CVA/TIA Diagnosis: No Congestive Heart Failure CHF Diagnosis: Yes Date of most recent Echo: 07/17/16 Last Known EF %: 60 No JEAN-PAUL/ARB d/t: Medical Contraindication (EF>40) VTE (View Protocol) VTE Risk Factors: Acute medical illness, Cancer/chemo/oth therapy, CHF or Resp failure [facility] prophylaxis d/t: No contraindications No VTE Pharm Prophylaxis d/t: No contraindications VTE Diagnosis: No VTE Type: NONE VTE Confirmed by (Test): NONE Sepsis (View Protocol) Severe Sepsis Present: No Septic Shock Septic Shock Present: No Miscellaneous Documentation Attending Case Discussed With: SCARLETT WATT MD Primary Care Physician: SCARLETT WATT MD Patient sees these Specialists CARDIO, PULM, ENDO Level of Patient Care: Telemetry Consults Needed: 1 Consulting Specialty: Cardiology Consults Needed: 2 Consulting Specialty: Pulmonary Disease Consults Needed: 3 Consulting Specialty: Endocrinology Resident Review Statement Resident Statement: examined this patient Other Findings: see HPI
--- NOTE | 2016-09-10 11:34 | NUR ---
PT HAS BED ASSIGNMENT IN ROOM 173-1
[2016-09-10] MEDS ORDERED: BACITRACIN28.4 GM TOP (11:56)
[2016-09-10] MEDS ORDERED: SALINE NASAL SP30 ML NASB (11:57)
--- NOTE | 2016-09-10 12:01 | NUR ---
ECHO IN PROGRESS
--- NOTE | 2016-09-10 12:05 | NUR ---
BLOOD DRAWN AND SENT TO LAB ([facility])
--- NOTE | 2016-09-10 12:11 | NUR ---
DONOVAN TO CALL BACK FOR REPORT
--- NOTE | 2016-09-10 12:37 | NUR ---
PER PHARMACIST ANTONIA, PT SHOULD NOT RECEIVE PRAVASTATIN TODAY HIS LIVER ENZYMES ARE ELEVATED. [id number] PAGED AND INFORMED OF SAME MOD, CHRISTIAN, AT THE BEDSIDE
--- NOTE | 2016-09-10 12:45 | Cons- Cardiology ---
General Information and HPI Consulting Request Date of Consult: 09/10/16 Requested By: SCARLETT WATT MD Reason for Consult: Recurrent congestive heart failure, moderate atrial fibrillation. Source of Information: patient, old records Exam Limitations: no limitations History of Present Illness: The patient is a 76-year-old man well known to me. He has underlying coronary artery disease with ischemic cardiomyopathy. He has dual-chamber biventricular pacemaker with relatively normal left ventricular systolic function on last determination. He has paroxysmal atrial fibrillation but he has been in persistent atrial fibrillation for the last 4-6 weeks. He failed cardioversion on his previous admission and his amiodarone dose was increased in an attempt to load him up. He was just recently discharged from the hospital where he was here for over a week with congestive heart failure, difficult to control atrial fibrillation and question pneumonia. He was just discharged 3 days ago on a good medical regimen. He was doing well at home for the past couple of days but this morning he had an episode of shortness of breath. He took his oxygen saturation and it was in the 80s and his pulse rate was reported as in the 140s. Based on this he came to the emergency department. There he began to feel better. His heart rate was in the low 100s with atrial fibrillation. His troponin was reported out as 0.11 and the rest of his labs were unremarkable or unchanged. At no point did he have any chest pain. At this point the patient feels back to his baseline and is pretty unhappy about plans to hospitalize him, mainly for his elevated troponin. Allergies/Medications Allergies: Coded Allergies: NO KNOWN ALLERGIES (UNKNOWN 08/10/16) Home Med List: Albuterol Sulfate 1.25 MG/3 ML VIAL.NEB 1 Vial INH/ASHLEY Q4-6 PRN COPD Albuterol Sulfate (Ventolin Hfa) 18 GM HFA.AER.AD 2 PUF INH Q6P PRN SHORTNESS OF BREATH Allopurinol 300 MG TABLET 1 TAB PO DAILY GOUT (Reported) Amiodarone HCl 200 MG TABLET 1 TAB PO TID atrial fibrillation Bacitracin 500 UNIT/GRAM OINT...G. 1 DANIEL TOP 2200 NASAL PROBLEMS (Reported) apply to affected area(s) Fluticasone/Vilanterol (Breo Ellipta 100-25 Mcg INH) 100 MCG-25 MCG/DOSE BLST.W.DEV 1 PUFF INH DAILY BREATHING PROBLEMS (Reported) Furosemide (Lasix) 40 MG TABLET 1 TAB PO BID HEART FAILURE Insulin Aspart, Recombinant (Novolog Flexpen) 100 UNIT/ML INSULN.PEN 1 UNITS SC AD DM DIRECTED Insulin Glargine,Hum.rec.anlog (Lantus Solostar) 100 UNIT/ML (3 ML) INSULN.PEN 10 UNITS SC BID DIABETES Lactobac Cmb #3/Fos/Pantethine (Probiotic & Acidophilus Cap) 300MM-250 CAPSULE 1 CAP PO BID DIARRHEA Magnesium Oxide 400 MG TABLET 1 TAB PO DAILY SUPPLEMENT (Reported) Multivit-Min/FA/Lycopen/Lutein (Centrum Silver Tablet) 0.4 MG-300 MCG-250 MCG TABLET 1 TAB PO DAILY VITAMIN SUPPORT (Reported) Pravastatin Sodium 80 MG TABLET 1 TAB PO DAILY HLD (Reported) Rivaroxaban (Xarelto) 15 MG TABLET 1 TAB PO DAILY Afib (Reported) Sodium Chloride (Saline Nasal [place]) 0.65 % SPRAY 1 SPRAY NASB Q3 DRY NOSE ( Reported) Tamsulosin HCl (Flomax) 0.4 MG CAP.ER.24H 1 CAP PO DAILY PROSTATE (Reported) Tiotropium [place] (Spiriva) 18 MCG CAP.W.DEV 1 CAP INH DAILY COPD (Reported) Vitamin B Complex (B Complex) 1 EACH TABLET 1 TAB PO DAILY VITAMIN SUPPORT ( Reported) Current Medications: Current Medications Sig/Clare Start time Last Medication Dose Route Stop Time Status Admin Acetaminophen 650 MG Q6P PRN 09/10 1115 AC PO Amiodarone HCl 200 MG TID 09/10 1201 AC PO Amiodarone HCl 200 MG ONCE ONE 09/10 899 DC 09/10 PO 09/10 0801 0914 Aspirin 0 .STK-MED ONE 09/10 0853 DC PO Aspirin 325 MG ONCE ONE 09/10 0830 DC 09/10 PO 09/10 0831 0848 Azithromycin 500 MG ONCE ONE 09/10 699 DC 09/10 Sodium Chloride 250 ML IV 09/10 075 0755 Ceftriaxone Sodium 0 .STK-MED ONE 09/10 730 DC .ROUTE Ceftriaxone Sodium 1,000 MG ONCE ONE 09/10 699 DC 09/10 IV 09/10 0701 0755 Enoxaparin Sodium 40 MG DAILY 09/10 1600 CAN SC Furosemide 40 MG ONCE ONE 09/10 899 DC 09/10 PO 09/10 0901 0914 Insulin Detemir 10 UNITS BID 09/10 1201 AC SC Potassium Chloride 0 .STK-MED ONE 09/10 1251 DC PO Potassium Chloride 40 MEQ ONCE ONE 09/10 1245 UNVr PO 09/10 1246 Pravastatin Sodium 80 MG 1700 09/10 1700 AC PO Rivaroxaban 15 MG DAILY 09/10 1159 AC PO Sodium Chloride 1 SPRAY Q3 09/10 1200 AC REGIS Tamsulosin HCl 0.4 MG DAILY 09/10 1200 AC PO Tiotropium [place] 1 PUF DAILY 09/10 1200 AC INH Review of Systems Review of Systems: He has no other complaints in the review of systems. Past History Travel History Traveled to [place] past 21 day No Medical History Neurological: NONE EENT: epistaxis, HEARING LOSS Cardiovascular: AFIB, CHF, hypertension, hyperlipidemia, STENTS x 5 LCW PACER/ DEBRILLATOR Respiratory: COPD, pneumonia Gastrointestinal: NONE Hepatic: NONE Renal: NONE Musculoskeletal: gout, osteoarthritis Psychiatric: NONE Endocrine: diabetes Blood Disorders: NONE Cancer(s): NONE ZOO DIRECTOR/Reproductive: 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 Relation not specified for: Fam hx-ischem heart disease Fam hx-ischem heart disease Psychosocial History Who Do You Live With? spouse Services at Home: None Primary Language: Sammarinese Functional Ability ADLs Independent: dressing, eating, toileting, bathing. Ambulation: independent IADLs Independent: shopping, housework, finances, food prep, telephone, transportation , medication admin. ECHO Results (as available) Report: CONCLUSIONS Mild concentric left ventricular hypertrophy. Left ventricular ejection fraction is estimated at 55-60 %. There is mild inferolateral hypokinesis. Other perez all contract well. Catheter/pacemaker wire in the right ventricular cavity. Catheter/pacemaker wire in the right atrial appendage. Mild to moderate left atrial dilatation. Mild to moderate thickening/calcification of the mitral valve leaflets. Mzwi-fw-qfumqddz mitral regurgitation. Focal thickening of the aortic valve cusps. No aortic stenosis. Trace aortic regurgitation. Right ventricular systolic pressure estimated to be elevated at 40- 45 mmHg. The IVC is moderately dilated. Results are similar to the last echocardiogram of 12/02/2014, except that mild inferolateral hypokinesis of the left ventricle is noted on the current study. Exam & Diagnostic Data Vital Signs and I&O Vital Signs Date Time Temp Pulse Resp B/P B/P Pulse O2 O2 Flow FiO2 Mean Ox Delivery Rate 09/10 1208 97.2 102 19 133/80 09/10 1147 97.2 102 19 133/80 94 Nasal 3.5L Cannula 09/10 1041 96.2 110 18 130/96 95 Nasal 3.0L Cannula 09/10 0914 96.5 96 18 130/58 09/10 0852 96.5 96 18 130/58 93 Nasal 3.0L Cannula 09/10 0651 95 Nasal 2.0L Cannula 09/10 0639 95.5 115 23 129/87 97 Room Air Intake & Output 09/10 1600 09/10 0800 09/10 0000 09/09 1600 09/09 0800 09/09 0000 Intake Total 250 0 Output Total Balance 250 0 Intake, IV 250 Intake, Oral 0 Patient 184 lb Weight Physical Exam: On physical he was in no distress when I examined him. He was awake, alert and talking in full sentences. HEENT exam normal Neck veins not distended Carotids normal Chest markedly decreased breath sounds, occasional wheezing and rhonchi. Heart moderate rate irregular rhythm with no murmurs Extremities trace to 1+ edema of the feet and ankles Labs/[place] Results: Laboratory Tests 09/10 09/10 1204 0654 Chemistry Sodium (137 - 145 mmol/L) 141 Potassium (3.5 - 5.1 mmol/L) 3.4 L Chloride (98 - 107 mmol/L) 99 Carbon Dioxide (22 - 30 mmol/L) 35 H Anion Gap (5 - 16) 7 BUN (9 - 20 mg/dL) 47 H Creatinine (0.7 - 1.2 mg/dL) 1.6 H Estimated GFR (>60 ml/min) 42 L BUN/Creatinine Ratio (7 - 25 %) 29.4 H Glucose (65 - 99 mg/dL) 64 L Calcium (8.4 - 10.2 mg/dL) 7.9 L Magnesium (1.6 - 2.3 mg/dL) 2.0 Total Bilirubin (0.2 - 1.3 mg/dL) 0.4 AST (17 - 59 U/L) 176 H ALT (21 - 72 U/L) 128 H Alkaline Phosphatase (< 127 U/L) 200 H Troponin I (<0.11 ng/ml) Pending 0.11 *H [id number]-[id number] Pept (<125 pg/mL) 83198 H Total Protein (6.3 - 8.2 g/dL) 5.4 L Albumin (3.5 - 5.0 g/dL) 3.0 L Globulin (1.9 - 4.2 gm/dL) 2.4 Albumin/Globulin Ratio (1.1 - 2.2 %) 1.3 Hematology CBC w Diff MAN DIFF ORDERED WBC (4.8 - 10.8 /CUMM) 15.5 H RBC (4.70 - 6.10 /CUMM) 3.80 L Hgb (14.0 - 18.0 G/DL) 10.0 L Hct (42 - 52 %) 31.3 L MCV (80.0 - 94.0 FL) 82.2 MCH (27.0 - 31.0 PG) 26.2 L RDW (11.5 - 14.5 %) 19.5 H Plt Count (130 - 400 /CUMM) 318 MPV (7.4 - 10.4 FL) 7.2 L Gran % (42.2 - 75.2 %) 86.0 H Lymphocytes % (20.5 - 51.1 %) 8.7 L Monocytes % (1.7 - 9.3 %) 4.6 Eosinophils % (0 - 5 %) 0.7 Basophils % (0.0 - 2.0 %) 0 L Absolute Granulocytes (1.4 - 6.5 /CUMM) 13.3 H Segmented Neutrophils (42.2 - 75.2 %) 81 H Absolute Lymphocytes (1.2 - 3.4 /CUMM) 1.3 Lymphocytes (20.5 - 51.1 %) 8 L Monocytes (1.7 - 9.3 %) 9 Absolute Monocytes (0.10 - 0.60 /CUMM) 0.7 H Eosinophils (0 - 5.0 %) 2 Absolute Eosinophils (0.0 - 0.7 /CUMM) 0.1 Absolute Basophils (0.0 - 0.2 /CUMM) 0 Platelet Estimate (ADEQUATE) ADEQUATE Polychromasia 1+ Hypochromic-Microcytic 1+ Poikilocytosis 1+ Ovalocytes 1+ Elliptocytes FEW PUBS MCHC (33.0 - 37.0 G/DL) 31.9 L Other Body Source Fld Total RBCs Counted (%) 100 Diagnostic Data EKG Results Atrial fibrillation at a rate of about 120 with ventricular pacing, which is mandatory with a biventricular device. CXR Results PATIENT: SONDRA CALDWELL PRESENT AGE: 76 PATIENT ACCOUNT NO: [id number] : 39 LOCATION: [facility] ([facility] ORDERING PHYSICIAN: EDNA TADEO MD SERVICE DATE: 09/10/16 EXAM TYPE: RAD - XRY-PORTABLE CHEST XRAY EXAMINATION: XR PORTABLE CHEST CLINICAL INFORMATION: Hypoxia COMPARISON: 09/06/2016 TECHNIQUE: Portable 85 degrees upright view of the chest was obtained. FINDINGS: Bilateral small to moderate right and small left-sided pleural effusions are unchanged. Associated patchy bibasilar opacities. No evidence of pneumothorax. Mild vascular congestion without interstitial edema. Dual-lead ICD is identified. The cardiac silhouette is not enlarged. IMPRESSION: Normal cardiac size. Bilateral pleural effusions, right greater than left side are unchanged. Vascular congestion without interstitial edema. No change. DICTATED BY: ART MILLER MD DATE/TIME DICTATED:09/10/16735 SERVICES HOST:SANTANA DATE/TIME TRANSCRIBED:09/10/16735 CONFIDENTIAL, DO NOT COPY WITHOUT APPROPRIATE AUTHORIZATION. <Electronically signed in Other Vendor System> SIGNED BY: ART MILLER MD 09/10/16742 Assessment/Plan Assessment/Plan Mr. Caldwell presents again with shortness of breath. He has evidence of some congestive heart failure on his chest x-ray and persistent pleural effusions. He remains in atrial fibrillation with a somewhat uncontrolled rate. We will obtain a follow-up echocardiogram. We will adjust his medications to try to control his rate better. I will try another cardioversion on him since he has had over a week of increased amiodarone dosage. 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 I would put him on IV Lasix again to try and reduce his effusions. He may come to thoracentesis if necessary. We will of course trend his troponins. I'm not anticipating a cardiac catheterization at this point. Copies To: SCARLETT WATT MD Acknowledgment - Thank you for your consult request.
--- NOTE | 2016-09-10 13:53 | NUR ---
MED WITH LOPRESSOR PER MAR.
--- NOTE | 2016-09-10 14:02 | NUR ---
REPORT GIVEN TO [facility] TRANSPORT BOOKED
--- NOTE | 2016-09-10 14:26 | NUR ---
PT ALERT, CONVERSANT AND PLEASANT WITH NO COMPLAINTS VOICED. DENIES CURRENT SOB. SAT 95% ON 3L. HR RANGE 88-124. PT AWARE TO PROVIDE URINE SAMPLE WHEN ABLE. URINAL AT BEDSIDE TRANSPORTED UPSTAIRS ON MONITOR WITH DELVIN HOUSER
[2016-09-10 15:06] VITALS: BP 128/60
--- NOTE | 2016-09-10 16:24 | Admission Certification ---
Admission Certification Certification Statement - As attending physician, I certify that at the time of - admission, based on clinical presentation, severity of - symptoms, need for further diagnostic testing and - therapeutic interventions, and risk of adverse outcomes - without in-hospital treatment, in my clinical assessment, - this patient requires an acute hospital stay for a minimum - of two nights or longer. I have also considered psychsocial - factors such as support system, advanced age, financial - issues, cognitive issues, and failed out-patient treatments, - past re-admission history, safety of patient, and lack of - compliance as applicable. Specific rationale supporting this admission is: Rapid heart beat PAF SOB edema CHF bump in troponin.
--- NOTE | 2016-09-10 16:30 | PN- Att Addend ---
Attending Addendum Attending Brief Note 76 year old male just discharged home 3 days ago was doing well this am suddenly increased SOB took oxygen saturation was in the 80s and heart rate up to the 140s also some ankle edema came to the ER had a small bump in the troponin and felt better after at home took one of his wifes Valium calmed him down Dr Ramirez saw the patient and recommended observation serial troponins and will ttry to repeat the cardioversion. Laboratory Tests 09/10 09/10 1204 0654 Chemistry Sodium (137 - 145 mmol/L) 141 Potassium (3.5 - 5.1 mmol/L) 3.4 L Chloride (98 - 107 mmol/L) 99 Carbon Dioxide (22 - 30 mmol/L) 35 H Anion Gap (5 - 16) 7 BUN (9 - 20 mg/dL) 47 H Creatinine (0.7 - 1.2 mg/dL) 1.6 H Estimated GFR (>60 ml/min) 42 L BUN/Creatinine Ratio (7 - 25 %) 29.4 H Glucose (65 - 99 mg/dL) 64 L Calcium (8.4 - 10.2 mg/dL) 7.9 L Magnesium (1.6 - 2.3 mg/dL) 2.0 Total Bilirubin (0.2 - 1.3 mg/dL) 0.4 AST (17 - 59 U/L) 176 H ALT (21 - 72 U/L) 128 H Alkaline Phosphatase (< 127 U/L) 200 H Troponin I (<0.11 ng/ml) 0.09 0.11 *H Jci-Z-Rdebdyhiacx Pept (<125 pg/mL) 17845 H Total Protein (6.3 - 8.2 g/dL) 5.4 L Albumin (3.5 - 5.0 g/dL) 3.0 L Globulin (1.9 - 4.2 gm/dL) 2.4 Albumin/Globulin Ratio (1.1 - 2.2 %) 1.3 Hematology CBC w Diff MAN DIFF ORDERED WBC (4.8 - 10.8 /CUMM) 15.5 H RBC (4.70 - 6.10 /CUMM) 3.80 L Hgb (14.0 - 18.0 G/DL) 10.0 L Hct (42 - 52 %) 31.3 L MCV (80.0 - 94.0 FL) 82.2 MCH (27.0 - 31.0 PG) 26.2 L RDW (11.5 - 14.5 %) 19.5 H Plt Count (130 - 400 /CUMM) 318 MPV (7.4 - 10.4 FL) 7.2 L Gran % (42.2 - 75.2 %) 86.0 H Lymphocytes % (20.5 - 51.1 %) 8.7 L Monocytes % (1.7 - 9.3 %) 4.6 Eosinophils % (0 - 5 %) 0.7 Basophils % (0.0 - 2.0 %) 0 L Absolute Granulocytes (1.4 - 6.5 /CUMM) 13.3 H Segmented Neutrophils (42.2 - 75.2 %) 81 H Absolute Lymphocytes (1.2 - 3.4 /CUMM) 1.3 Lymphocytes (20.5 - 51.1 %) 8 L Monocytes (1.7 - 9.3 %) 9 Absolute Monocytes (0.10 - 0.60 /CUMM) 0.7 H Eosinophils (0 - 5.0 %) 2 Absolute Eosinophils (0.0 - 0.7 /CUMM) 0.1 Absolute Basophils (0.0 - 0.2 /CUMM) 0 Platelet Estimate (ADEQUATE) ADEQUATE Polychromasia 1+ Hypochromic-Microcytic 1+ Poikilocytosis 1+ Ovalocytes 1+ Elliptocytes FEW PUBS MCHC (33.0 - 37.0 G/DL) 31.9 L Other Body Source Fld Total RBCs Counted (%) 100 CXR mild congestion.
--- NOTE | 2016-09-10 17:46 | ECHOCARDIOGRAM REPORT ---
SONDRA CANO Age: 76 : 1940 Gender: M Exam Date: 09/10/2016 11:35 Exam Location: ER Ht (in): 69 Wt (lb): 184 BSA: 2.03 BP: 130 / 96 Ordering Physician: CHRISTIAN HINOJOSA MD Referring Physician: CHRISTIAN HINOJOSA MD Technologist: Abhijit Grayson SHIRA Room Number: 3 Indications: MYOCARDIAL ISCHEMIA/PR Rhythm: Atrial fibrillation Technical Quality: Fair FINDINGS Left Ventricle Left ventricular cavity size at the upper limits of normal. Mild concentric left ventricular hypertrophy. There is inferior and posterior akinesis. Left ventricular systolic function is moderately decreased. Visually estimated ejection fraction is 35% Right Ventricle Normal right ventricular size and function. Catheter/pacemaker wire in the right ventricular cavity. Right Atrium Normal right atrial size. Catheter/pacemaker wire in the right atrial appendage. Left Atrium Mild left atrial dilatation. Mitral Valve Moderate thickening/calcification of the anterior mitral valve leaflet. Mild thickening/calcification of the posterior mitral valve leaflet. Mild mitral regurgitation. Aortic Valve Aortic valve not well visualized, grossly normal. No aortic stenosis. No aortic regurgitation. Tricuspid Valve Structurally normal tricuspid valve. Trace to mild tricuspid regurgitation. Right ventricular systolic pressure estimated to be elevated at 55 mmHg. Pulmonic Valve Pulmonic valve not well visualized. No pulmonic regurgitation. Pericardium No pericardial or pleural effusion. Great Vessels Normal size aortic root. The inferior vena cava is moderately dilated. CONCLUSIONS Left ventricular cavity size at the upper limits of normal. Mild concentric left ventricular hypertrophy. There is inferior and posterior akinesis. Left ventricular systolic function is moderately decreased. Visually estimated ejection fraction is 35%. Catheter/pacemaker wire in the right ventricular cavity. Catheter/pacemaker wire in the right atrial appendage. Mild left atrial dilatation. Moderate thickening/calcification of the anterior mitral valve leaflet. Mild thickening/calcification of the posterior mitral valve leaflet. Mild mitral regurgitation. Aortic valve not well visualized, grossly normal. Right ventricular systolic pressure estimated to be elevated at 55 mmHg. The inferior vena cava is moderately dilated. Saul Ramirez M.D. (Electronically Signed) Final Date: 10 September 2016 17:45 MEASUREMENTS (Male / Female) Normal Values 2D ECHO LV Diastolic Diameter PLAX 5.1 cm 4.2 - 5.9 / 3.9 - 5.3 cm LV Systolic Diameter PLAX 4.6 cm 2.1 - 4.0 cm LV Fractional Shortening PLAX 9.8 % 25 - 46 % LV Ejection Fraction 2D Teich 21.4 % IVS Diastolic Thickness 1.1 cm LVPW Diastolic Thickness 1.1 cm LV Relative Wall Thickness 0.4 RV Internal Dim ED PLAX 3.1 cm 1.9 - 3.8 cm LVOT Diameter 2.0 cm Aortic Root Diameter 2.9 cm LA Systolic Diameter LX 4.0 cm 3.0 - 4.0 / 2.7 - 3.8 cm LV Ejection Fraction MOD BP 51.3 % >= 55 % LV Diastolic Length 4C 8.3 cm 6.9 - 10.3 cm LV Diastolic Area 4C 37.5 cm LV Diastolic Volume MOD 4C 141.0 cm LV Ejection Fraction MOD 4C 51.8 % LV Stroke Volume MOD 4C 73.0 cm LV Systolic Length 4C 7.4 cm LV Systolic Area 4C 24.5 cm LV Systolic Volume MOD 4C 68.0 cm LV Ejection Fraction MOD 2C 48.4 % LV Diastolic Volume 4C AL 143.5 cm 85 - 139 / 69 - 109 cm LV Systolic Volume 4C AL 68.9 cm LV Ejection Fraction 4C AL 52.0 % LV Stroke Volume 4C AL 74.6 cm LV Ejection Fraction 2C AL 49.8 % RV Diastolic Area 6.6 cm 11 - 28 cm DOPPLER MV Peak Velocity 118.1 cm/s MV Peak Gradient 5.6 mmHg MV Mean Velocity 70.1 cm/s MV Mean Gradient 2.4 mmHg MV PHT Velocity 118.1 cm/s MV Deceleration [place] 986.6 cm/s MV Pressure Half Time 35.9 ms MV Area PHT 6.1 cm MR Peak Velocity 495.0 cm/s MR Peak Gradient 98.0 mmHg TR Peak Velocity 332.0 cm/s TR Peak Gradient 44.1 mmHg Right Atrial Pressure 10.0 mmHg Pulmonary Artery Systolic Pressu 54.1 mmHg Right Ventricular Systolic Press 54.1 mmHg PV Peak Velocity 80.6 cm/s PV Peak Gradient 2.6 mmHg PV Mean Velocity 46.4 cm/s PV Mean Gradient 1.0 mmHg PV Velocity Time Integral 11.2 cm LV E' Septal Velocity 4.6 cm/s
--- NOTE | 2016-09-10 18:11 | Cons- Endocrinology ---
General Information and HPI Consulting Request Date of Consult: 09/10/16 Requested By: medical team Reason for Consult: uncontrolled diabetes Source of Information: patient, old records Exam Limitations: no limitations History of Present Illness: This 76-year-old male came back to the emergency room by ambulance because of shortness of breath. He was discharged about 3 days ago. He was doing well until this morning when he became more short of breath. He noted that his heart rate increased. He used some inhalers and began to feel improved. When the paramedics got to his house he stated he was already starting to feel better. He was brought to the emergency room. The patient has a history of paroxysmal atrial fibrillation but has been in chronic atrial fibrillation recently. He is followed by Saul Ramirez MD. He has been loaded with additional amiodarone with the intent of considering cardioversion. He was already cardioverted once but it did not hold. He has a cardiac pacemaker. With regard to his diabetes the patient went home on Basaglar 10 units twice a day also is on Humalog sliding scale starting with 4 units for 80-150 blood sugar. I discussed this with him and his the day after he returned home. He states his blood sugars were doing well. He was on a prednisone taper at home. Allergies/Medications Allergies: Coded Allergies: NO KNOWN ALLERGIES (UNKNOWN 08/10/16) Home Med List: Albuterol Sulfate 1.25 MG/3 ML VIAL.NEB 1 Vial INH/ASHLEY Q4-6 PRN COPD Albuterol Sulfate (Ventolin Hfa) 18 GM HFA.AER.AD 2 PUF INH Q6P PRN SHORTNESS OF BREATH Allopurinol 300 MG TABLET 1 TAB PO DAILY GOUT (Reported) Amiodarone HCl 200 MG TABLET 1 TAB PO TID atrial fibrillation Bacitracin 500 UNIT/GRAM OINT...G. 1 DANIEL TOP 2200 NASAL PROBLEMS (Reported) apply to affected area(s) Fluticasone/Vilanterol (Breo Ellipta 100-25 Mcg INH) 100 MCG-25 MCG/DOSE BLST.W.DEV 1 PUFF INH DAILY BREATHING PROBLEMS (Reported) Furosemide (Lasix) 40 MG TABLET 1 TAB PO BID HEART FAILURE Insulin Aspart, Recombinant (Novolog Flexpen) 100 UNIT/ML INSULN.PEN 1 UNITS SC AD DM DIRECTED Insulin Glargine,Hum.rec.anlog (Lantus Solostar) 100 UNIT/ML (3 ML) INSULN.PEN 10 UNITS SC BID DIABETES Lactobac Cmb #3/Fos/Pantethine (Probiotic & Acidophilus Cap) 300MM-250 CAPSULE 1 CAP PO BID DIARRHEA Magnesium Oxide 400 MG TABLET 1 TAB PO DAILY SUPPLEMENT (Reported) Multivit-Min/FA/Lycopen/Lutein (Centrum Silver Tablet) 0.4 MG-300 MCG-250 MCG TABLET 1 TAB PO DAILY VITAMIN SUPPORT (Reported) Pravastatin Sodium 80 MG TABLET 1 TAB PO DAILY HLD (Reported) Rivaroxaban (Xarelto) 15 MG TABLET 1 TAB PO DAILY Afib (Reported) Sodium Chloride (Saline Nasal [place]) 0.65 % SPRAY 1 SPRAY NASB Q3 DRY NOSE ( Reported) Tamsulosin HCl (Flomax) 0.4 MG CAP.ER.24H 1 CAP PO DAILY PROSTATE (Reported) Tiotropium [place] (Spiriva) 18 MCG CAP.W.DEV 1 CAP INH DAILY COPD (Reported) Vitamin B Complex (B Complex) 1 EACH TABLET 1 TAB PO DAILY VITAMIN SUPPORT ( Reported) Review of Systems Review of Systems Constitutional: Denies: chills, fever. Cardiovascular: Denies: chest pain. Respiratory: Reports: cough, short of breath, wheezing. GI: Denies: abdominal pain, nausea, vomiting. Genitourinary: Denies: dysuria. Skin: Reports: no symptoms. Past History Travel History Traveled to [place] past 21 day No Medical History Blood Transfusion Hx: Yes Neurological: NONE EENT: epistaxis, HEARING LOSS Cardiovascular: AFIB, CHF, hypertension, hyperlipidemia, STENTS x 5 LCW PACER/ DEBRILLATOR Respiratory: COPD, pneumonia Gastrointestinal: NONE Hepatic: NONE Renal: NONE Musculoskeletal: gout, osteoarthritis Psychiatric: NONE Endocrine: diabetes Blood Disorders: NONE Cancer(s): NONE [employer] SCHO[employer] B[employer]/Reproductive: 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 Relation not specified for: Fam hx-ischem heart disease Fam hx-ischem heart disease Psychosocial History Where Do You Live? Home Who Do You Live With? spouse Services at Home: None Primary Language: Turkmen Smoking Status: Former Smoker ETOH Use: denies use Functional Ability ADLs Independent: dressing, eating, toileting, bathing. Ambulation: independent IADLs Independent: shopping, housework, finances, food prep, telephone, transportation , medication admin. Exam & Diagnostic Data Last 24 Hrs of Vital Signs/I&O Vital Signs Date Time Temp Pulse Resp B/P B/P Pulse O2 O2 Flow FiO2 Mean Ox Delivery Rate 09/10 1645 104 104/60 09/10 1521 96 Nasal 3.0L Cannula 09/10 1506 98.3 110 20 128/60 96 Nasal 3.0L Cannula 09/10 1419 97.9 101 18 139/76 94 Room Air 09/10 1352 96.6 99 18 147/78 09/10 1352 96.6 99 18 147/78 94 Nasal 3.0L Cannula 09/10 1305 97.2 102 19 133/80 09/10 1208 97.2 102 19 133/80 09/10 1147 97.2 102 19 133/80 94 Nasal 3.5L Cannula 09/10 1041 96.2 110 18 130/96 95 Nasal 3.0L Cannula 09/10 0914 96.5 96 18 130/58 09/10 0852 96.5 96 18 130/58 93 Nasal 3.0L Cannula 09/10 0651 95 Nasal 2.0L Cannula 09/10 0639 95.5 115 23 129/87 97 Room Air Intake & Output 09/10 1600 09/10 0800 09/10 0000 Intake Total 490 0 Output Total Balance 490 0 Intake, IV 250 Intake, Oral 240 0 Patient 184 lb Weight Vital Signs Date Time Temp Pulse Resp B/P B/P Pulse O2 O2 Flow FiO2 Mean Ox Delivery Rate 09/10 1645 104 104/60 09/10 1521 96 Nasal 3.0L Cannula 09/10 1506 98.3 110 20 128/60 96 Nasal 3.0L Cannula 09/10 1419 97.9 101 18 139/76 94 Room Air 09/10 1352 96.6 99 18 147/78 09/10 1352 96.6 99 18 147/78 94 Nasal 3.0L Cannula 09/10 1305 97.2 102 19 133/80 09/10 1208 97.2 102 19 133/80 09/10 1147 97.2 102 19 133/80 94 Nasal 3.5L Cannula 09/10 1041 96.2 110 18 130/96 95 Nasal 3.0L Cannula 09/10 0914 96.5 96 18 130/58 09/10 0852 96.5 96 18 130/58 93 Nasal 3.0L Cannula 09/10 0651 95 Nasal 2.0L Cannula 09/10 0639 95.5 115 23 129/87 97 Room Air Intake & Output 09/10 1600 09/10 0800 09/10 0000 Intake Total 490 0 Output Total Balance 490 0 Intake, IV 250 Intake, Oral 240 0 Patient 184 lb Weight Physical Exam General Appearance: alert, awake, comfortable Head: normal appearance Eyes: Bilateral: normal appearance. Neck: normal inspection Respiratory: decreased breath sounds, wheezing Cardiovascular: regular rate/rhythm Gastrointestinal: normal bowel sounds, soft, non-tender Extremities: normal inspection Skin: intact Labs/[place] Results: Laboratory Tests 09/10 09/10 1530 1204 Chemistry Troponin I (<0.11 ng/ml) 0.09 Urines Urine Color (YEL,AMB,STR) Pending Urine Clarity (CLEAR) Pending Urine pH (5.0 - 8.0) Pending Ur Specific [place] (1.001 - 1.035) Pending Urine Protein (NEG,<30 MG/DL) Pending Urine Ketones (NEG) Pending Urine Nitrite (NEG) Pending Urine Bilirubin (NEG) Pending Urine Urobilinogen (0.1 - 1.0 EU/dl) Pending Ur Leukocyte Esterase (NEG) Pending Ur Microscopic SEDIMENT EXAMINED Urine RBC (0 - 5 /HPF) Pending Urine Hemoglobin (NEG) Pending Urine Glucose (N MG/DL) Pending 09/10 0654 Chemistry Sodium (137 - 145 mmol/L) 141 Potassium (3.5 - 5.1 mmol/L) 3.4 L Chloride (98 - 107 mmol/L) 99 Carbon Dioxide (22 - 30 mmol/L) 35 H Anion Gap (5 - 16) 7 BUN (9 - 20 mg/dL) 47 H Creatinine (0.7 - 1.2 mg/dL) 1.6 H Estimated GFR (>60 ml/min) 42 L BUN/Creatinine Ratio (7 - 25 %) 29.4 H Glucose (65 - 99 mg/dL) 64 L Calcium (8.4 - 10.2 mg/dL) 7.9 L Magnesium (1.6 - 2.3 mg/dL) 2.0 Total Bilirubin (0.2 - 1.3 mg/dL) 0.4 AST (17 - 59 U/L) 176 H ALT (21 - 72 U/L) 128 H Alkaline Phosphatase (< 127 U/L) 200 H Lactate Dehydrogenase (313 - 618 U/L) 1083 H Troponin I (<0.11 ng/ml) 0.11 *H Usz-X-[id number] Pept (<125 pg/mL) 73904 H Total Protein (6.3 - 8.2 g/dL) 5.4 L Albumin (3.5 - 5.0 g/dL) 3.0 L Globulin (1.9 - 4.2 gm/dL) 2.4 Albumin/Globulin Ratio (1.1 - 2.2 %) 1.3 Hematology CBC w Diff MAN DIFF ORDERED WBC (4.8 - 10.8 /CUMM) 15.5 H RBC (4.70 - 6.10 /CUMM) 3.80 L Hgb (14.0 - 18.0 G/DL) 10.0 L Hct (42 - 52 %) 31.3 L MCV (80.0 - 94.0 FL) 82.2 MCH (27.0 - 31.0 PG) 26.2 L RDW (11.5 - 14.5 %) 19.5 H Plt Count (130 - 400 /CUMM) 318 MPV (7.4 - 10.4 FL) 7.2 L Gran % (42.2 - 75.2 %) 86.0 H Lymphocytes % (20.5 - 51.1 %) 8.7 L Monocytes % (1.7 - 9.3 %) 4.6 Eosinophils % (0 - 5 %) 0.7 Basophils % (0.0 - 2.0 %) 0 L Absolute Granulocytes (1.4 - 6.5 /CUMM) 13.3 H Segmented Neutrophils (42.2 - 75.2 %) 81 H Absolute Lymphocytes (1.2 - 3.4 /CUMM) 1.3 Lymphocytes (20.5 - 51.1 %) 8 L Monocytes (1.7 - 9.3 %) 9 Absolute Monocytes (0.10 - 0.60 /CUMM) 0.7 H Eosinophils (0 - 5.0 %) 2 Absolute Eosinophils (0.0 - 0.7 /CUMM) 0.1 Absolute Basophils (0.0 - 0.2 /CUMM) 0 Platelet Estimate (ADEQUATE) ADEQUATE Polychromasia 1+ Hypochromic-Microcytic 1+ Poikilocytosis 1+ Ovalocytes 1+ Elliptocytes FEW PUBS MCHC (33.0 - 37.0 G/DL) 31.9 L Other Body Source Fld Total RBCs Counted (%) 100 Assessment/Plan Assessment/Plan This 76-year-old male has uncontrolled diabetes mellitus type 2 aggravated by steroids.. He came back to the hospital because of shortness of breath and tachycardia. He is now back on methylprednisolone 40 mg intravenously twice a day. He received 125 mg of methylprednisolone in the ER. With regard to his insulin suggest continue the Levemir 10 units twice a day. We also need to place him on sliding scale NovoLog. Sliding-scale NovoLog before meals should be 80-150 give 4 units NovoLog, 151-200 give 6 units NovoLog , 201-250 give 8 units NovoLog, 251-300 give 10 units NovoLog, 301-350 give 12 units NovoLog, 351-400 give 14 units NovoLog. The first dose of NovoLog should be given now. The patient just finished eating his dinner. A separate bedtime sliding-scale NovoLog should be written. Sliding-scale NovoLog at bedtime should be less than 250 give no insulin, 251-300 give 2 units NovoLog, 301-350 give 3 units NovoLog, 351-400 give 4 units NovoLog. Consult Acknowledgment - Thank you for your consult request.
[2016-09-10 22:00] VITALS: BP 126/80
--- NOTE | 2016-09-11 07:18 | PN- Housestaff ---
Subjective Follow-up For: Hypoxemia CHF COPD exacerbation A. fib with RVR Complaints: SOB WEAKNESS LL EDEMA Tele-Events Since Last Visit: Spacing [id number] NO events Subjective: I personally examined the patient at bedside, who is sitting comfortably in a chair in no acute distress and reports having no complaints. He was on oxygen mask Review of Systems Constitutional: Reports: weakness. EENTM: Reports: epistaxis (MINIMAL RIGHT NOSTRIL BLEED). Cardiovascular: Reports: edema. Respiratory: Reports: short of breath. Gastrointestinal: Denies: no symptoms. Genitourinary: Denies: no symptoms. Objective Last 24 Hrs of Vital Signs/I&O Vital Signs Date Time Temp Pulse Resp B/P B/P Pulse O2 O2 Flow FiO2 Mean Ox Delivery Rate 09/11 0902 95 Nasal 30% Cannula 09/11 0729 98.1 70 18 124/68 93 Nasal Cannula 09/11 0000 Venti Mask 30% 09/10 2210 109 120/70 09/10 2210 109 120/70 09/10 2200 98.7 112 16 126/80 94 Nasal 3.0L Cannula 09/10 2110 Nasal 3.0L Cannula 09/10 1645 104 104/60 09/10 1600 93 Nasal 3.0L Cannula 09/10 1521 96 Nasal 3.0L Cannula 09/10 1506 98.3 110 20 128/60 96 Nasal 3.0L Cannula 09/10 1419 97.9 101 18 139/76 94 Room Air 09/10 1352 96.6 99 18 147/78 09/10 1352 96.6 99 18 147/78 94 Nasal 3.0L Cannula 09/10 1305 97.2 102 19 133/80 09/10 1208 97.2 102 19 133/80 09/10 1147 97.2 102 19 133/80 94 Nasal 3.5L Cannula 09/10 1041 96.2 110 18 130/96 95 Nasal 3.0L Cannula Intake & Output 09/11 1600 09/11 0800 09/11 0000 Intake Total 790 Output Total 400 850 Balance -400 -60 Intake, Oral 550 Intake, Other 240 Number 0 Bowel Movements Output, Urine 400 850 Physical Exam General Appearance: Alert, Oriented X3, Cooperative, No Acute Distress Skin: No Rashes, No Breakdown, No Significant Lesion Skin Temp/Moisture Exam: Warm/Dry HEENT: Atraumatic, PERRLA, EOMI, Mucous Membr. moist/pink Neck: Supple, No JVD Cardiovascular: Regular Rate, Normal S1, Normal S2, No Murmurs Lungs: BILATERAL SCATTERED WHEEZES Abdomen: Normal Bowel Sounds, Soft, No Tenderness Neurological: Normal Speech, Strength at 5/5 X4 Ext, Normal Tone Extremities: BILATERAL 2 + PITTING EDEMA Vascular: Normal Pulses, Pulses Symmetrical Assessment/Plan Assessment: Patient is a 76-year-old gentleman with a past mental history significant for recurrent nosebleeds/epistaxis status post cauterization, atrial fibrillation on Xarelto, coronary artery disease (history of multiple stents), cardiomyopathy status post pacemaker/defibrillator, COPD (on 2 L of oxygen at bedtime), history of MRSA pneumonia in June 2016, and C. difficile colitis. Recently discharged from [facility] for acute respiratory failure 2/2 PNA and COPD exacerbation, paroxysmal A. fib with RVR and pulmonary edema. imaging on admission: EKG Results Afib with paced rhytym, rate 108, Qtc 601 CXR Results Normal cardiac size. Bilateral pleural effusions, right greater than left side are unchanged. Vascular congestion without interstitial edema. No change. Echo: Mild left ventricular concentric hypertrophy Moderate decrease in left ventricular systolic function ejection fraction 35% Inferior and posterior akinesis Pacemaker wire in the right ventricular cavity Mild left atrial dilatation Moderate thickening of the anterior mitral valve leaflet Mild thickening/calcification of the posterior mitral valve leaflet. Mild mitral regurgitation. Aortic valve not well visualized, grossly normal. Right ventricular systolic pressure estimated to be elevated at 55 mmHg. The inferior vena cava is moderately dilated. #Hypoxia 2/2 COPD exacerbation and acute on chronic CHF exacerbation(most likely due to uncontrolled A. fib EF less than 35%) Bilateral chest pleural effusion, most likely due to CHF, no evidence of empyema. Admit to telemetry floor CXR shows bilateral pulm effusion and vascular congestion IV lasix 40mg daily Dr Shell on board Continue his home meds #Elevated troponin More likely demand ischemia Elevated trop 0.11; repeat was 0.09, 0,07 EKG shows paced rhythm in afib; no obvious ST changes appreciated #COPD exacerbation He recieved a dose of IV solumedrol 125mg in the ambulance enroute DC IV solumedrol Start on prednisone taper 20 mg bedtime , continue on albuterol 1.25, continue ipratropium inhaler ATC QID Lasix prn Patient might need thoracocentesis if worsening TRC nebs Continue Spiriva Sputum culture # History of atrial fibrillation with RVR: Monitor on telemetry Pt is not on a beta georgi; will start him on a low dose of beta georgi 6.25mg BID Continue amiodarone 200mg TID Continue Xarelto Dr. Ramirez will attempt a second cardioversion ON SATURDAY, and also his EP will be consulted # Acute of Chronic Heart failure with decreased ejection fraction: Elevated pro [id number] Continue IV lasix 40mg daily Echo:Mild left ventricular concentric hypertrophy,Moderate decrease in left ventricular systolic function ejection fraction 35%,Inferior and posterior akinesis,Pacemaker wire in the right ventricular cavity, Mild left atrial dilatation # Diabetes mellitus: Patient presented with a low BG of 64 on admission which increased to 264 after a meal and likely also contributed to by high dose solumedrol administered enroute to the ED Continue Accu-Checks TIDAC and HS NovoLog sliding scale before meals and at bedtime and levemir Diabetic diet Dr. Last on board # Chronic kidney disease stage IIIB: His creatinine of 1.7 seems to be at baseline Will continue low dose Lasix because the last time it was held due to worsening creatinine, patient went into flash pulmonary edema Continue to monitor Daily BEP while on IV Lasix # Mild Hypokalemia Potassium today is 3.9 Will replete with potassium 40mg x 1 Will check magnesium Keep K+ >4 and Mag > 2 #QTC prolongation EKG shows a QTc of 601; repeat is 577 Possibly due to amiodarone used in treating his afib Close monitoring of QTc due to high risk of ventricular arrythmias # Elevated White count trending down Possibly due to steroids; Hold antibiotics for now; was given a dose of antibiotics in the ED CXR does not show any PNA, no urinary symptoms or fever Sputum culture Blood cultures x 2 drawn Will check UA and Urine culture daily CBC Watch for fevers # Transaminitis follow up on liver functions Full Code Mild Pain pathway DVT ppx with xarelto diat: heart healthy and consistent carbohydrate Problem List: 1. Pleural effusion 2. Pulmonary edema 3. CAD (coronary artery disease) 4. History of paroxysmal atrial tachycardia 5. Acute and chronic respiratory failure with hypoxia 6. Acute diastolic CHF (congestive heart failure) 7. Gout 8. IDDM (insulin dependent diabetes mellitus) 9. CKD (chronic kidney disease) 10. Hypokalemia 11. Prolonged Q-T interval on ECG Pain Ratin Pain Location: n/a Pain Goal: Remain pain free Pain Plan: tylenol oxycodone Tomorrow's Labs & Rationales: cbc DVT/Prophylaxis: pharmacological Consulting Request: Consulting Specialty: Endocrinology
[2016-09-11 07:29] VITALS: BP 124/68
--- NOTE | 2016-09-11 07:54 | PN- Diabetes ---
Assessment/Plan Assessment: Patient feels better this morning. He is presently nothing by mouth for a cardioversion later on this morning. He is not on IV fluids because of the history of congestive heart failure. Plan: Suggest hold his morning Levemir and NovoLog. Morning dose of Levemir should be given as soon as he gets back from procedure. We should also resume his sliding scale NovoLog when he begins to eat again and also the separate sliding scale at bedtime. Subjective Subjective: Feels okay Review of Systems Constitutional: Denies: chills, fever. Cardiovascular: Denies: chest pain. Respiratory: Reports: cough, short of breath. Gastrointestinal: Denies: abdominal pain. Skin: Reports: no symptoms. Objective Last 24 Hrs of Vital Signs/I&O Vital Signs Date Time Temp Pulse Resp B/P B/P Pulse O2 O2 Flow FiO2 Mean Ox Delivery Rate 09/11 07 98.1 70 18 124/68 93 Nasal Cannula 09/11 0000 Venti Mask 30% 09/10 221 109 120/70 09/10 2210 109 120/70 09/10 2200 98.7 112 16 126/80 94 Nasal 3.0L Cannula 09/10 2110 Nasal 3.0L Cannula 09/10 1645 104 104/60 09/10 1600 93 Nasal 3.0L Cannula 09/10 1521 96 Nasal 3.0L Cannula 09/10 1506 98.3 110 20 128/60 96 Nasal 3.0L Cannula 09/10 1419 97.9 101 18 139/76 94 Room Air 09/10 1352 96.6 99 18 147/78 09/10 1352 96.6 99 18 147/78 94 Nasal 3.0L Cannula 09/10 1305 97.2 102 19 133/80 09/10 1208 97.2 102 19 133/80 09/10 1147 97.2 102 19 133/80 94 Nasal 3.5L Cannula 09/10 1041 96.2 110 18 130/96 95 Nasal 3.0L Cannula 09/10 0914 96.5 96 18 130/58 09/10 0852 96.5 96 18 130/58 93 Nasal 3.0L Cannula Intake & Output 09/11 0800 07 0000 09/10 1600 Intake Total 790 490 Output Total 850 Balance -60 490 Intake, IV 250 Intake, Oral 550 240 Intake, Other 240 Number 0 Bowel Movements Output, Urine 850 Vital Signs Date Time Temp Pulse Resp B/P B/P Pulse O2 O2 Flow FiO2 Mean Ox Delivery Rate 09/11 0729 98.1 70 18 124/68 93 Nasal Cannula 09/11 0000 Venti Mask 30% 09/10 221 109 120/70 09/10 2210 109 120/70 09/10 2200 98.7 112 16 126/80 94 Nasal 3.0L Cannula 09/10 2110 Nasal 3.0L Cannula 09/10 1645 104 104/60 09/10 1600 93 Nasal 3.0L Cannula 09/10 1521 96 Nasal 3.0L Cannula 09/10 1506 98.3 110 20 128/60 96 Nasal 3.0L Cannula 09/10 1419 97.9 101 18 139/76 94 Room Air 09/10 1352 96.6 99 18 147/78 09/10 1352 96.6 99 18 147/78 94 Nasal 3.0L Cannula 09/10 1305 97.2 102 19 133/80 09/10 1208 97.2 102 19 133/80 09/10 1147 97.2 102 19 133/80 94 Nasal 3.5L Cannula 09/10 1041 96.2 110 18 130/96 95 Nasal 3.0L Cannula 09/10 0914 96.5 96 18 130/58 09/10 0852 96.5 96 18 130/58 93 Nasal 3.0L Cannula Intake & Output 09/11 0800 09/11 0000 09/10 1600 Intake Total 790 490 Output Total 850 Balance -60 490 Intake, IV 250 Intake, Oral 550 240 Intake, Other 240 Number 0 Bowel Movements Output, Urine 850 Physical Exam General Appearance: alert, awake, comfortable Head: normal appearance Neck: normal inspection Cardiovascular: regular rate/rhythm Abdomen: normal bowel sounds Extremities: normal inspection Current Medications: Current Medications Sig/Clare Start time Last Medication Dose Route Stop Time Status Admin Acetaminophen 650 MG Q6P PRN 09/10 1115 AC PO Albuterol Sulfate 3 ML TID 09/10 2200 AC 09/10 INH 1925 Amiodarone HCl 200 MG TID 09/10 1201 AC 09/10 PO 2210 Amiodarone HCl 200 MG ONCE ONE 09/10 0900 DC 09/10 PO 09/10 0901 0914 Aspirin 0 .STK-MED ONE 09/10 0853 DC PO Aspirin 325 MG ONCE ONE 09/10 0830 DC 09/10 PO 09/10 0831 0848 Azithromycin 500 MG ONCE ONE 09/10 0700 DC 09/10 Sodium Chloride 250 ML IV 09/10 0759 0755 Enoxaparin Sodium 40 MG DAILY 09/10 1600 CAN SC Furosemide 0 .STK-MED ONE 09/10 1308 DC IV Furosemide 40 MG DAILY 09/10 1242 AC 09/10 IV 1305 Furosemide 40 MG ONCE ONE 09/10 0900 DC 09/10 PO 09/10 0901 0914 Insulin Aspart 0 TIDAC/HS 09/10 2100 AC 09/10 SC 2203 Insulin Detemir 10 UNITS BID 09/10 1201 AC 09/10 SC 2211 Methylprednisolone 40 MG Q12 09/11 1000 AC IV Metoprolol Tartrate 6.25 MG BID 09/10 1304 AC 09/10 PO 2210 Potassium Chloride 0 .STK-MED ONE 09/10 1251 DC PO Potassium Chloride 40 MEQ ONCE ONE 09/10 1245 DC 09/10 PO 09/10 1246 1305 Pravastatin Sodium 80 MG 1700 09/10 1700 DC PO Rivaroxaban 15 MG DAILY 09/10 1159 AC 09/10 PO 1305 Sodium Chloride 1 SPRAY Q3 09/10 1200 AC 09/10 REGIS 2201 Tamsulosin HCl 0.4 MG DAILY 09/10 1200 AC 09/10 PO 1305 Tiotropium [place] 1 PUF DAILY 09/10 1200 AC 09/10 INH 1305 Findings Pertinent Lab/[place] Results: Laboratory Tests 09/10 09/10 09/10 1820 1530 1204 Chemistry Troponin I (<0.11 ng/ml) 0.07 0.09 Urines Urine Color (YEL,AMB,STR) YEL Urine Clarity (CLEAR) CLEAR Urine pH (5.0 - 8.0) 6.0 Ur Specific [place] (1.001 - 1.035) 1.010 Urine Protein (NEG,<30 MG/DL) 30 H Urine Ketones (NEG) NEG Urine Nitrite (NEG) NEG Urine Bilirubin (NEG) NEG Urine Urobilinogen (0.1 - 1.0 EU/dl) 0.2 Ur Leukocyte Esterase (NEG) NEG Ur Microscopic SEDIMENT EXAMINED Urine RBC (0 - 5 /HPF) RARE Urine WBC (0 - 2 /HPF) RARE Ur Epithelial Cells (NONE,FEW) RARE Urine Hemoglobin (NEG) NEG Urine Glucose (N MG/DL) NEG
[2016-09-11 08:31] LABS: ABSOLUTE BASOPHIL COUNT 0 /CUMM (0.0-0.2); ABSOLUTE EOSINOPHIL COUNT 0 /CUMM (0.0-0.7); ABSOLUTE GRANULOCYTE CT 12.1 /CUMM (1.4-6.5); ABSOLUTE LYMPH COUNT 0.6 /CUMM (1.2-3.4); ABSOLUTE MONOCYTE COUNT 0.7 /CUMM (0.10-0.60); BASOPHIL % 0 % (0.0-2.0); EOSINOPHIL % 0 % (0-5); GRANULOCYTE % 90.6 % (42.2-75.2); HEMATOCRIT 29.7 % (42-52); MEAN CORPUSCULAR HGB 26.3 PG (27.0-31.0); MEAN CORPUSCULAR HGB CONC 32.4 G/DL (33.0-37.0); MEAN CORPUSCULAR VOLUME 81.2 FL (80.0-94.0); MEAN PLATELET VOLUME 7.8 FL (7.4-10.4); PLATELET COUNT 255 /CUMM (130-400); RBC DISTRIBUTION WIDTH 19.1 % (11.5-14.5); RED BLOOD CELL CT 3.66 /CUMM (4.70-6.10); WHITE BLOOD CELL COUNT 13.4 /CUMM (4.8-10.8)
--- NOTE | 2016-09-11 09:45 | Cons- Pulmonary ---
General Information and HPI Consulting Request Date of Consult: 09/11/16 Requested By: med team History of Present Illness: Patient is a 76-year-old gentleman with a past mental history significant for recurrent nosebleeds/epistaxis status post cauterization, atrial fibrillation on Xarelto, coronary artery disease (history of multiple stents), cardiomyopathy status post pacemaker/defibrillator, COPD (on 2 L of oxygen at bedtime), history of MRSA pneumonia in June 2016, and C. difficile colitis. He reports not beeing able to sleep last night for some reason and then subsequently developed SOB and cough with whitish to yellowish sputum early this morning around 5 am. He also had associated wheexing and is HR on the pulse oximeter was 145-150 and O2 sats in the 80s. He took 2 breathing treatments and took 5mg of diazepam which helped him calm down and his HR started dropping to 100-120s. He increased his O2 to 2.5 liters. He also reports that his rate dropped at one time to 67 during that episode and that has never happened before. He denies CP, palpitations, headache, nausea or vomiting, fever or chills. He usually goes into flash pulm edema whenever he gets into rapid afib He was recently discharged from [facility] for acute respiratory failure 2 /2 possible PNA and COPD exacerbation and rapid afib 4 days ago and had been doing well except for increasing swelling on his lower extremities. He had a cardioversion during that admission which did not takeand had to be started on amiodarone which he is still taking, a repeat cardioversion is planned. He is currently on a prednisone taper from his last admission. Review of Systems Constitutional: Reports: no symptoms. Cardiovascular: Reports: peripheral edema. Denies: chest pain, palpitations. Respiratory: Reports: cough, short of breath, sputum production, wheezing. Denies: hemoptysis. Genitourinary: Denies: discharge, dysuria, frequency, hematuria. Allergies/Medications Allergies: Coded Allergies: NO KNOWN ALLERGIES (UNKNOWN 08/10/16) Home Med List: Albuterol Sulfate 1.25 MG/3 ML VIAL.NEB 1 Vial INH/ASHLEY Q4-6 PRN COPD Albuterol Sulfate (Ventolin Hfa) 18 GM HFA.AER.AD 2 PUF INH Q6P PRN SHORTNESS OF BREATH Allopurinol 300 MG TABLET 1 TAB PO DAILY GOUT (Reported) Amiodarone HCl 200 MG TABLET 1 TAB PO TID atrial fibrillation Bacitracin 500 UNIT/GRAM OINT...G. 1 DANIEL TOP 2200 NASAL PROBLEMS (Reported) apply to affected area(s) Fluticasone/Vilanterol (Breo Ellipta 100-25 Mcg INH) 100 MCG-25 MCG/DOSE BLST.W.DEV 1 PUFF INH DAILY BREATHING PROBLEMS (Reported) Furosemide (Lasix) 40 MG TABLET 1 TAB PO BID HEART FAILURE Insulin Aspart, Recombinant (Novolog Flexpen) 100 UNIT/ML INSULN.PEN 1 UNITS SC AD DM DIRECTED Insulin Glargine,Hum.rec.anlog (Lantus Solostar) 100 UNIT/ML (3 ML) INSULN.PEN 10 UNITS SC BID DIABETES Lactobac Cmb #3/Fos/Pantethine (Probiotic & Acidophilus Cap) 300MM-250 CAPSULE 1 CAP PO BID DIARRHEA Magnesium Oxide 400 MG TABLET 1 TAB PO DAILY SUPPLEMENT (Reported) Multivit-Min/FA/Lycopen/Lutein (Centrum Silver Tablet) 0.4 MG-300 MCG-250 MCG TABLET 1 TAB PO DAILY VITAMIN SUPPORT (Reported) Pravastatin Sodium 80 MG TABLET 1 TAB PO DAILY HLD (Reported) Rivaroxaban (Xarelto) 15 MG TABLET 1 TAB PO DAILY Afib (Reported) Sodium Chloride (Saline Nasal [place]) 0.65 % SPRAY 1 SPRAY NASB Q3 DRY NOSE ( Reported) Tamsulosin HCl (Flomax) 0.4 MG CAP.ER.24H 1 CAP PO DAILY PROSTATE (Reported) Tiotropium [place] (Spiriva) 18 MCG CAP.W.DEV 1 CAP INH DAILY COPD (Reported) Vitamin B Complex (B Complex) 1 EACH TABLET 1 TAB PO DAILY VITAMIN SUPPORT ( Reported) Review of Systems Review of Systems Constitutional: Reports: see HPI. 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 Relation not specified for: Fam hx-ischem heart disease Fam hx-ischem heart disease Psychosocial History Where Do You Live? Home Who Do You Live With? spouse Services at Home: None Primary Language: Yakut Smoking Status: Former Smoker ETOH Use: denies use Functional Ability ADLs Independent: dressing, eating, toileting, bathing. Ambulation: independent IADLs Independent: shopping, housework, finances, food prep, telephone, transportation , medication admin. Exam & Diagnostic Data Last 24 Hrs of Vital Signs/I&O Vital Signs Date Time Temp Pulse Resp B/P B/P Pulse O2 O2 Flow FiO2 Mean Ox Delivery Rate 09/11 0902 95 Nasal 30% Cannula 09/11 0729 98.1 70 18 124/68 93 Nasal Cannula 09/11 0000 Venti Mask 30% 09/10 2210 109 120/70 09/10 2210 109 120/70 09/10 2200 98.7 112 16 126/80 94 Nasal 3.0L Cannula 09/10 2110 Nasal 3.0L Cannula 09/10 1645 104 104/60 09/10 1600 93 Nasal 3.0L Cannula 09/10 1521 96 Nasal 3.0L Cannula 09/10 1506 98.3 110 20 128/60 96 Nasal 3.0L Cannula 09/10 1419 97.9 101 18 139/76 94 Room Air 09/10 1352 96.6 99 18 147/78 09/10 1352 96.6 99 18 147/78 94 Nasal 3.0L Cannula 09/10 1305 97.2 102 19 133/80 09/10 1208 97.2 102 19 133/80 09/10 1147 97.2 102 19 133/80 94 Nasal 3.5L Cannula 09/10 1041 96.2 110 18 130/96 95 Nasal 3.0L Cannula Intake & Output 09/11 1600 09/11 0800 09/11 0000 Intake Total 790 Output Total 400 850 Balance -400 -60 Intake, Oral 550 Intake, Other 240 Number 0 Bowel Movements Output, Urine 400 850 Last 48 Hrs of Labs/[place]: Laboratory Tests 09/11/16 0749: Anion Gap 10, Estimated GFR 39 L, BUN/Creatinine Ratio 31.2 H, Total Bilirubin 0.2, Direct Bilirubin 0.1, AST 37, ALT 105 H, Alkaline Phosphatase 166 H, Total Protein 5.1 L, Albumin 2.9 L, Triglycerides 114, Cholesterol 136, LDL Cholesterol, Calc 50 L, HDL Cholesterol 64 H, Cholesterol/HDL Ratio 2, CBC w Diff NO MAN DIFF REQ, RBC 3.66 L, MCV 81.2, MCH 26.3 L, RDW 19.1 H, MPV 7.8, Gran % 90.6 H, Lymphocytes % 4.5 L, Monocytes % 4.9, Eosinophils % 0, Basophils % 0 L, Absolute Granulocytes 12.1 H, Absolute Lymphocytes 0.6 L, Absolute Monocytes 0.7 H, Absolute Eosinophils 0, Absolute Basophils 0, PUBS MCHC 32.4 L 09/10/16 1820: Troponin I 0.07 09/10/16 1530: Urine Color YEL, Urine Clarity CLEAR, Urine pH 6.0, Ur Specific [place] 1.010, Urine Protein 30 H, Urine Ketones NEG, Urine Nitrite NEG, Urine Bilirubin NEG, Urine Urobilinogen 0.2, Ur Leukocyte Esterase NEG, Ur Microscopic SEDIMENT EXAMINED, Urine RBC RARE, Urine WBC RARE, Ur Epithelial Cells RARE, Urine Hemoglobin NEG, Urine Glucose NEG 09/10/16 1204: Troponin I 0.09 09/10/16 0654: Anion Gap 7, Estimated GFR 42 L, BUN/Creatinine Ratio 29.4 H, Glucose 64 L, Calcium 7.9 L, Magnesium 2.0, Total Bilirubin 0.4, AST 176 H, ALT 128 H, Alkaline Phosphatase 200 H, Lactate Dehydrogenase 1083 H, Troponin I 0.11 *H, [id number] Pept 48492 H, Total Protein 5.4 L, Albumin 3.0 L, Globulin 2.4, Albumin/Globulin Ratio 1.3, CBC w Diff MAN DIFF ORDERED, RBC 3.80 L, MCV 82.2, MCH 26.2 L, RDW 19.5 H, MPV 7.2 L, Gran % 86.0 H, Lymphocytes % 8.7 L , Monocytes % 4.6, Eosinophils % 0.7, Basophils % 0 L, Absolute Granulocytes 13.3 H, Segmented Neutrophils 81 H, Absolute Lymphocytes 1.3, Lymphocytes 8 L , Monocytes 9, Absolute Monocytes 0.7 H, Eosinophils 2, Absolute Eosinophils 0.1, Absolute Basophils 0, Platelet Estimate ADEQUATE, Polychromasia 1+, Hypochromic-Microcytic 1+, Poikilocytosis 1+, Ovalocytes 1+, Elliptocytes FEW, PUBS MCHC 31.9 L, Fld Total RBCs Counted 100 Assessment/Plan Impression/Plan: Physical Exam General Appearance Alert, Oriented X3, Cooperative, No Acute Distress Skin No Significant Lesion HEENT Atraumatic, PERRLA, Mucous Membr. moist/pink Neck Supple, No JVD Cardiovascular irregularly Irregular HR Lungs Wheezing throughout, bibasilar crackles Abdomen Normal Bowel Sounds, Soft, No Tenderness Extremities 1+ pedal edema bilaterally cxr IMPRESSION: Normal cardiac size. Bilateral pleural effusions, right greater than left side are unchanged. Vascular congestion without interstitial edema. No change. IMPRESSION This is a gentleman with paroxysmal atrial fibrillation on xeralto, significant COPD, biventricular pacer for a previous wide-complex rhythm, previous coronary artery disease, significant pulmonary hypertension, mitral regurgitation, diabetes, previous gout and osteoarthritis, currently on 24-hour oxygen with 40- pack-year smoking history who has quit smoking few yrs ago now here * Acute flash Pulm Edema due to tachy response in a pt with persistant afib * PT with severe copd with worsening due to acute pulmonary edema with rapid atrial fibrillation with acute diastolic heart failure with recent intubation from acute diastolic heart failure. * Effusion due to chf no evidence of empyema etc * No clinical evidence suggestive of active bacterial infection in the lung and patient recently did have significant C. difficile colitis * Significant COPD WIth wheezing compounded by chf now with rapid recovery after his heart rate is down * Recent Cdiff colitis now status post antibiotic therapy no diarrhea * Recent bilateral epistaxis with nasal packing, was on abx for this, now better. PT continues to have sig anemia * Sig COPD with a right middle lobe bronchiectasis from his previous pneumonia with MRSA colonization. * Paroxysmal atrial fibrillation with anticoagulation before, now on amiodarone with biventricular pacer. Pt failed electrical cardioversion on 08/31, now with sig tacy episode on excertion, pending electrical cardioversion * Recent bronchiolitis with Previous small lung nodules * Chronic kidney disease with atrophic kidney. * Hypertension, gout, previous high blood sugar, previous gout. * Mild aortic aneurysm * BPH on Flomax REC DC iv steroids Po prednisone 20 and taper NEbs with ipratropium atc qid, do not use albuterol neb unless pt is wheezing ( use 1.25 mg instead of 2.5 mg) Lasix prn For cardioversion Strict sugar control Saline nasal spray Pt would need thoracentesis if worse - ask cardio to see if he can be changed to iv heparin from am if pt does not improve May need a calcium channel georgi -ask cardio as he has a pacer he can be treated with higher dose Consult Acknowledgment - Thank you for your consult request.
--- NOTE | 2016-09-11 10:05 | PN- Att Addend ---
Attending Addendum Attending Brief Note Patient feeling better looking better but edema is down on his legs is not short of breath at rest his O2 saturations are reasonable. His other vital signs are stable too. Patient is nothing by mouth going later on for cardioversion. Patient was seen by Dr. Last for diabetes management was suggested to hold the insulin this morning because is nothing by mouth and because no IV fluids should be given because of the history of heart failure. 24 TOTALS 09/11 0000 09/10 0000 Intake Total 1280 Output Total 850 Balance 430 Intake, IV 250 Intake, Oral 790 Intake, Other 240 Number 0 Bowel Movements Output, Urine 850 Patient 184 lb Weight Current Medications Sig/Clare Start time Last Medication Dose Route Stop Time Status Admin Acetaminophen 650 MG Q6P PRN 09/10 1115 AC PO Albuterol Sulfate 3 ML TID 09/10 2200 AC 09/11 INH 0859 Amiodarone HCl 200 MG TID 09/10 1201 AC 09/10 PO 2210 Enoxaparin Sodium 40 MG DAILY 09/10 1600 CAN SC Furosemide 0 .STK-MED ONE 09/10 1308 DC IV Furosemide 40 MG DAILY 09/10 1242 AC 09/11 IV 0957 Insulin Aspart 0 TIDAC/HS 09/10 2100 AC 09/10 SC 2203 Insulin Detemir 10 UNITS BID 09/10 1201 AC 09/10 SC 2211 Methylprednisolone 40 MG Q12 09/11 1000 CAN IV Metoprolol Tartrate 6.25 MG BID 09/10 1304 AC 09/10 PO 2210 Potassium Chloride 0 .STK-MED ONE 09/10 1251 DC PO Potassium Chloride 40 MEQ ONCE ONE 09/10 1245 DC 09/10 PO 09/10 1246 1305 Pravastatin Sodium 80 MG 1700 09/10 1700 DC PO Prednisone 20 MG DAILY 09/11 1000 CANr PO Prednisone 20 MG DAILY 09/11 1000 UNVr PO 09/20 0959 Rivaroxaban 15 MG DAILY 09/10 1159 AC 09/10 PO 1305 Sodium Chloride 1 SPRAY Q3 09/10 1200 AC 09/11 REIGS 0957 Tamsulosin HCl 0.4 MG DAILY 09/10 1200 AC 09/10 PO 1305 Tiotropium [place] 1 PUF DAILY 09/10 1200 AC 09/11 INH 0957 Laboratory Tests 09/11/16 0749: Anion Gap 10, Estimated GFR 39 L, BUN/Creatinine Ratio 31.2 H, Total Bilirubin 0.2, Direct Bilirubin 0.1, AST 37, ALT 105 H, Alkaline Phosphatase 166 H, Total Protein 5.1 L, Albumin 2.9 L, Triglycerides 114, Cholesterol 136, LDL Cholesterol, Calc 50 L, HDL Cholesterol 64 H, Cholesterol/HDL Ratio 2, CBC w Diff NO MAN DIFF REQ, RBC 3.66 L, MCV 81.2, MCH 26.3 L, RDW 19.1 H, MPV 7.8, Gran % 90.6 H, Lymphocytes % 4.5 L, Monocytes % 4.9, Eosinophils % 0, Basophils % 0 L, Absolute Granulocytes 12.1 H, Absolute Lymphocytes 0.6 L, Absolute Monocytes 0.7 H, Absolute Eosinophils 0, Absolute Basophils 0, PUBS MCHC 32.4 L 09/10/16 1820: Troponin I 0.07 09/10/16 1530: Urine Color YEL, Urine Clarity CLEAR, Urine pH 6.0, Ur Specific [place] 1.010, Urine Protein 30 H, Urine Ketones NEG, Urine Nitrite NEG, Urine Bilirubin NEG, Urine Urobilinogen 0.2, Ur Leukocyte Esterase NEG, Ur Microscopic SEDIMENT EXAMINED, Urine RBC RARE, Urine WBC RARE, Ur Epithelial Cells RARE, Urine Hemoglobin NEG, Urine Glucose NEG 09/10/16 1204: Troponin I 0.09 09/10/16 0654: Anion Gap 7, Estimated GFR 42 L, BUN/Creatinine Ratio 29.4 H, Glucose 64 L, Calcium 7.9 L, Magnesium 2.0, Total Bilirubin 0.4, AST 176 H, ALT 128 H, Alkaline Phosphatase 200 H, Lactate Dehydrogenase 1083 H, Troponin I 0.11 *H, [id number] Pept 80020 H, Total Protein 5.4 L, Albumin 3.0 L, Globulin 2.4, Albumin/Globulin Ratio 1.3, CBC w Diff MAN DIFF ORDERED, RBC 3.80 L, MCV 82.2, MCH 26.2 L, RDW 19.5 H, MPV 7.2 L, Gran % 86.0 H, Lymphocytes % 8.7 L , Monocytes % 4.6, Eosinophils % 0.7, Basophils % 0 L, Absolute Granulocytes 13.3 H, Segmented Neutrophils 81 H, Absolute Lymphocytes 1.3, Lymphocytes 8 L , Monocytes 9, Absolute Monocytes 0.7 H, Eosinophils 2, Absolute Eosinophils 0.1, Absolute Basophils 0, Platelet Estimate ADEQUATE, Polychromasia 1+, Hypochromic-Microcytic 1+, Poikilocytosis 1+, Ovalocytes 1+, Elliptocytes FEW, PUBS MCHC 31.9 L, Fld Total RBCs Counted 100
--- NOTE | 2016-09-11 10:57 | PN- Cardiology ---
Subjective Subjective: The patient is feeling okay. He is not having any chest pain or excessive shortness of breath. His enzymes have decreased from the high of 0.11, which is a trivial elevation. He remains in atrial fibrillation with a moderate rate in the low 100s. He remains on amiodarone 600 mg daily. He is only on 6.25 mg twice daily of Lopressor. He is on Xarelto 15 mg daily because of his renal function. He apparently was not sent out on diltiazem on the last admission. Objective Vital Signs and I&Os Vital Signs Date Time Temp Pulse Resp B/P B/P Pulse O2 O2 Flow FiO2 Mean Ox Delivery Rate 09/11 0902 95 Nasal 30% Cannula 09/11 0729 98.1 70 18 124/68 93 Nasal Cannula 09/11 0000 Venti Mask 30% 09/10 221 109 120/70 09/10 2210 109 120/70 09/10 2200 98.7 112 16 126/80 94 Nasal 3.0L Cannula 09/10 2110 Nasal 3.0L Cannula 09/10 1645 104 104/60 09/10 1600 93 Nasal 3.0L Cannula 09/10 1521 96 Nasal 3.0L Cannula 09/10 1506 98.3 110 20 128/60 96 Nasal 3.0L Cannula 09/10 1419 97.9 101 18 139/76 94 Room Air 09/10 1352 96.6 99 18 147/78 09/10 1352 96.6 99 18 147/78 94 Nasal 3.0L Cannula 09/10 1305 97.2 102 19 133/80 09/10 1208 97.2 102 19 133/80 09/10 1147 97.2 102 19 133/80 94 Nasal 3.5L Cannula Intake & Output 09/11 1600 09/11 0800 09/11 0000 09/10 1600 09/10 0800 09/10 0000 Intake Total 790 490 0 Output Total 400 850 Balance -400 -60 490 0 Intake, IV 250 Intake, Oral 550 240 0 Intake, Other 240 Number 0 Bowel Movements Output, Urine 400 850 Patient 184 lb Weight Physical Exam: He is in no distress HEENT exam is normal Neck veins not distended Chest reveals decreased breath sounds and a few rhonchi and minimal wheezing Heart irregular rhythm no murmurs Extremities no edema Current Medications: Current Medications Sig/Clare Start time Last Medication Dose Route Stop Time Status Admin Acetaminophen 650 MG Q6P PRN 09/10 1115 AC PO Albuterol Sulfate 3 ML TID 09/10 2200 AC 09/11 INH 0859 Amiodarone HCl 200 MG TID 09/10 1201 AC 09/10 PO 2210 Enoxaparin Sodium 40 MG DAILY 09/10 1600 CAN SC Furosemide 0 .STK-MED ONE 09/10 1308 DC IV Furosemide 40 MG DAILY 09/10 1242 AC 09/11 IV 0957 Insulin Aspart 0 TIDAC/HS 09/10 2100 AC 09/10 SC 2203 Insulin Detemir 10 UNITS BID 09/10 1201 AC 09/10 SC 2211 Methylprednisolone 40 MG Q12 09/11 1000 CAN IV Metoprolol Tartrate 6.25 MG BID 09/10 1304 AC 09/10 PO 2210 Potassium Chloride 0 .STK-MED ONE 09/10 1251 DC PO Potassium Chloride 40 MEQ ONCE ONE 09/10 1245 DC 09/10 PO 09/10 1246 1305 Pravastatin Sodium 80 MG 1700 09/10 1700 DC PO Prednisone 5 MG DAILY 09/17 1000 AC PO 09/20 0959 Prednisone 10 MG DAILY 09/14 1000 AC PO 09/17 0959 Prednisone 20 MG DAILY 09/11 1000 CAN PO Prednisone 20 MG DAILY 09/11 1000 CAN PO 09/20 0959 Prednisone 20 MG DAILY 09/11 1000 AC PO 09/14 0959 Rivaroxaban 15 MG DAILY 09/10 1159 AC 09/10 PO 1305 Sodium Chloride 1 SPRAY Q3 09/10 1200 AC 09/11 REGIS 0957 Tamsulosin HCl 0.4 MG DAILY 09/10 1200 AC 09/10 PO 1305 Tiotropium [place] 1 PUF DAILY 09/10 1200 AC 09/11 INH 0957 Results Last 48 Hrs of Labs/Mics: Laboratory Tests 09/11/16 0749: Anion Gap 10, Estimated GFR 39 L, BUN/Creatinine Ratio 31.2 H, Total Bilirubin 0.2, Direct Bilirubin 0.1, AST 37, ALT 105 H, Alkaline Phosphatase 166 H, Total Protein 5.1 L, Albumin 2.9 L, Triglycerides 114, Cholesterol 136, LDL Cholesterol, Calc 50 L, HDL Cholesterol 64 H, Cholesterol/HDL Ratio 2, CBC w Diff NO MAN DIFF REQ, RBC 3.66 L, MCV 81.2, MCH 26.3 L, RDW 19.1 H, MPV 7.8, Gran % 90.6 H, Lymphocytes % 4.5 L, Monocytes % 4.9, Eosinophils % 0, Basophils % 0 L, Absolute Granulocytes 12.1 H, Absolute Lymphocytes 0.6 L, Absolute Monocytes 0.7 H, Absolute Eosinophils 0, Absolute Basophils 0, PUBS MCHC 32.4 L 09/10/16 1820: Troponin I 0.07 09/10/16 1530: Urine Color YEL, Urine Clarity CLEAR, Urine pH 6.0, Ur Specific [place] 1.010, Urine Protein 30 H, Urine Ketones NEG, Urine Nitrite NEG, Urine Bilirubin NEG, Urine Urobilinogen 0.2, Ur Leukocyte Esterase NEG, Ur Microscopic SEDIMENT EXAMINED, Urine RBC RARE, Urine WBC RARE, Ur Epithelial Cells RARE, Urine Hemoglobin NEG, Urine Glucose NEG 09/10/16 1204: Troponin I 0.09 09/10/16 0654: Anion Gap 7, Estimated GFR 42 L, BUN/Creatinine Ratio 29.4 H, Glucose 64 L, Calcium 7.9 L, Magnesium 2.0, Total Bilirubin 0.4, AST 176 H, ALT 128 H, Alkaline Phosphatase 200 H, Lactate Dehydrogenase 1083 H, Troponin I 0.11 *H, [id number] Pept 05695 H, Total Protein 5.4 L, Albumin 3.0 L, Globulin 2.4, Albumin/Globulin Ratio 1.3, CBC w Diff MAN DIFF ORDERED, RBC 3.80 L, MCV 82.2, MCH 26.2 L, RDW 19.5 H, MPV 7.2 L, Gran % 86.0 H, Lymphocytes % 8.7 L , Monocytes % 4.6, Eosinophils % 0.7, Basophils % 0 L, Absolute Granulocytes 13.3 H, Segmented Neutrophils 81 H, Absolute Lymphocytes 1.3, Lymphocytes 8 L , Monocytes 9, Absolute Monocytes 0.7 H, Eosinophils 2, Absolute Eosinophils 0.1, Absolute Basophils 0, Platelet Estimate ADEQUATE, Polychromasia 1+, Hypochromic-Microcytic 1+, Poikilocytosis 1+, Ovalocytes 1+, Elliptocytes FEW, PUBS MCHC 31.9 L, Fld Total RBCs Counted 100 Recent Imaging Studies: CONCLUSIONS Left ventricular cavity size at the upper limits of normal. Mild concentric left ventricular hypertrophy. There is inferior and posterior akinesis. Left ventricular systolic function is moderately decreased. Visually estimated ejection fraction is 35%. Catheter/pacemaker wire in the right ventricular cavity. Catheter/pacemaker wire in the right atrial appendage. Mild left atrial dilatation. Moderate thickening/calcification of the anterior mitral valve leaflet. Mild thickening/calcification of the posterior mitral valve leaflet. Mild mitral regurgitation. Aortic valve not well visualized, grossly normal. Right ventricular systolic pressure estimated to be elevated at 55 mmHg. The inferior vena cava is moderately dilated. Saul Ramirez M.D. (Electronically Signed) Final Date: 10 September 2016 17:45 Assessment/Plan Assessment/Plan The patient is not in any distress today. He is probably still in mild congestive heart failure. He is diuresing on IV Lasix. His heart rate is not well controlled. His echo shows his left ventricular function is probably not as good as it was previously, possibly due to elevated heart rate. I recommend adding diltiazem to his regimen for better rate control. I will attempt to cardiovert him on this admission, hopefully tomorrow if we can arrange this with invasive imaging. I would continue him on Lasix perhaps 40 mg twice daily and repeat his chest x-ray tomorrow to look at his pleural effusions. Continue telemetry? Yes
[2016-09-11 14:51] VITALS: BP 120/50
[2016-09-11 22:32] VITALS: BP 102/70
[2016-09-12 07:00] VITALS: BP 118/60
--- NOTE | 2016-09-12 07:45 | PN- Diabetes ---
Assessment/Plan Assessment: Patient feels better this morning. He may have cardioversion today or tomorrow morning. His prednisone has been tapered to 20 mg once a day. His blood sugars have improved. Plan: Suggest that if the patient is eating today continue the present insulin. If he is made nothing by mouth for a procedure later today I would hold this morning's Levemir and continue to monitor his blood sugars. Once he is eating again we can place him back on his usual dose of Levemir and usual dose of mealtime insulin NovoLog sliding scale. The separate bedtime sliding-scale NovoLog should also remain. Subjective Subjective: Feels improved Review of Systems Constitutional: Denies: chills, fever. Cardiovascular: Denies: chest pain. Respiratory: Reports: cough, short of breath. Gastrointestinal: Denies: nausea, vomiting. Skin: Reports: no symptoms. Objective Last 24 Hrs of Vital Signs/I&O Vital Signs Date Time Temp Pulse Resp B/P B/P Pulse O2 O2 Flow FiO2 Mean Ox Delivery Rate 09/12 07 98.6 94 18 11860 94 Nasal Cannula 09/12 0614 94 118/60 09/12 0000 Nasal 3.0L Cannula 09/11 2246 114 110/56 09/11 2246 114 110/56 09/11 2245 116 110/56 09/11 2232 98.2 106 18 102/70 94 09/11 1952 95 Venti Mask 30% 09/11 1700 114 120/50 09/11 1600 Nasal 3.0L Cannula 09/11 1538 114 120/50 09/11 1451 98.5 114 20 120/50 96 Nasal 4.0L Cannula 09/11 1201 105 128/68 09/11 1201 105 128/68 09/11 1201 105 128/68 09/11 0902 95 Nasal 30% Cannula 09/11 0800 94 Nasal 3.0L Cannula Intake & Output 09/12 0800 09/12 0000 09/11 1600 Intake Total 360 480 Output Total 550 300 800 Balance -190 -300 -320 Intake, Oral 360 480 Number 1 Bowel Movements Output, Urine 550 300 800 Patient 187 lb Weight Weight Chair scale Measurement Method Vital Signs Date Time Temp Pulse Resp B/P B/P Pulse O2 O2 Flow FiO2 Mean Ox Delivery Rate 09/12 07 98.6 94 18 11860 94 Nasal Cannula 09/12 0614 94 118/60 09/12 0000 Nasal 3.0L Cannula 09/116 114 110/56 09/11 2246 114 110/56 09/11 2245 116 110/56 09/112 98.2 106 18 102/70 94 09/11 1952 95 Venti Mask 30% 09/11 1700 114 120/50 09/11 1600 Nasal 3.0L Cannula 09/11 1538 114 120/50 09/11 1451 98.5 114 20 96 Nasal 4.0L Cannula 09/11 1201 105 128/68 09/11 1201 105 128/68 09/11 1201 105 128/68 09/11 0902 95 Nasal 30% Cannula 09/11 0800 94 Nasal 3.0L Cannula Intake & Output 09/12 0800 09/12 0000 09/11 1600 Intake Total 360 480 Output Total 550 300 800 Balance -190 -300 -320 Intake, Oral 360 480 Number 1 Bowel Movements Output, Urine 550 300 800 Patient 187 lb Weight Weight Chair scale Measurement Method Physical Exam General Appearance: alert, awake, comfortable Head: normal appearance Respiratory: normal breath sounds Cardiovascular: irregularly irregular Abdomen: normal bowel sounds, soft Extremities: normal inspection Current Medications: Current Medications Sig/Clare Start time Last Medication Dose Route Stop Time Status Admin Acetaminophen 650 MG Q6P PRN 09/10 1115 AC PO Albuterol Sulfate 3 ML Q4P PRN 09/11 1945 AC INH Albuterol Sulfate 3 ML TID 09/10 2200 DC 09/11 INH 1340 Amiodarone HCl 200 MG TID 09/10 1201 AC 09/11 PO 2246 Diltiazem HCl 30 MG Q8 09/11 1400 AC 09/12 PO 0614 Furosemide 40 MG BID 09/11 2200 AC 09/11 IV 2246 Furosemide 40 MG DAILY 09/10 1242 DC 09/11 IV 0957 Insulin Aspart 0 TIDAC/HS 09/10 2100 AC 09/11 SC 1730 Insulin Detemir 10 UNITS BID 09/10 1201 AC 09/11 SC 2246 Insulin Human Regular 0 Q6 09/12 0000 CAN SC Ipratropium [place] 2.5 ML TID 09/11 2200 AC 09/11 INH 1937 Ipratropium [place] 1.25 ML ONCE ONE 09/11 1515 DC INH 09/11 1516 Methylprednisolone 40 MG Q12 09/11 1000 CAN IV Metoprolol Tartrate 6.25 MG BID 09/10 1304 AC 09/11 PO 2246 Prednisone 5 MG DAILY 09/17 1000 AC PO 09/20 0959 Prednisone 10 MG DAILY 09/14 1000 AC PO 09/17 0959 Prednisone 20 MG DAILY 09/11 1000 CAN PO Prednisone 20 MG DAILY 09/11 1000 CAN PO 09/20 0959 Prednisone 20 MG DAILY 09/11 1000 AC 09/11 PO 09/14 0959 1158 Rivaroxaban 15 MG DAILY 09/10 1159 AC 09/11 PO 1158 Sodium Chloride 1 SPRAY Q3 09/10 1200 AC 09/12 REGIS 0616 Tamsulosin HCl 0.4 MG DAILY 09/10 1200 AC 09/11 PO 1201 Tiotropium [place] 1 PUF DAILY 09/10 1200 AC 09/11 INH 0957 Findings Pertinent Lab/[place] Results: Laboratory Tests 09/12 0636 Hematology CBC w Diff Pending WBC Pending RBC Pending Hgb Pending Hct Pending MCV Pending MCH Pending RDW Pending Plt Count Pending MPV Pending PUBS MCHC Pending
[2016-09-12 08:16] LABS: ABSOLUTE BASOPHIL COUNT 0 /CUMM (0.0-0.2); ABSOLUTE EOSINOPHIL COUNT 0 /CUMM (0.0-0.7); ABSOLUTE GRANULOCYTE CT 17.2 /CUMM (1.4-6.5); ABSOLUTE LYMPH COUNT 0.8 /CUMM (1.2-3.4); ABSOLUTE MONOCYTE COUNT 0.8 /CUMM (0.10-0.60); BASOPHIL % 0.1 % (0.0-2.0); EOSINOPHIL % 0.2 % (0-5); HEMATOCRIT 29.4 % (42-52); MEAN CORPUSCULAR HGB 26.3 PG (27.0-31.0); MEAN CORPUSCULAR HGB CONC 32.2 G/DL (33.0-37.0); MEAN CORPUSCULAR VOLUME 81.8 FL (80.0-94.0); MEAN PLATELET VOLUME 8.1 FL (7.4-10.4); PLATELET COUNT 274 /CUMM (130-400); RBC DISTRIBUTION WIDTH 19.8 % (11.5-14.5); RED BLOOD CELL CT 3.59 /CUMM (4.70-6.10); WHITE BLOOD CELL COUNT 18.9 /CUMM (4.8-10.8)
--- NOTE | 2016-09-12 08:18 | PN- Housestaff ---
Subjective Follow-up For: Hypoxemia CHF COPD exacerbation A. fib with RVR Complaints: SOB LL edema Tele-Events Since Last Visit: s-pacing Subjective: I personally examined the patient at bedside, he was sitting comfortably in bed, in no acute distress, on nasal oxygen 4 L Review of Systems Constitutional: Reports: weakness. EENTM: Denies: no symptoms. Cardiovascular: Denies: see HPI. Respiratory: Denies: see HPI. Gastrointestinal: Denies: no symptoms. Genitourinary: Denies: no symptoms. Objective Last 24 Hrs of Vital Signs/I&O Vital Signs Date Time Temp Pulse Resp B/P B/P Pulse O2 O2 Flow FiO2 Mean Ox Delivery Rate 09/12 0958 88 Room Air Room Air 09/12 0952 94 118/60 09/12 0700 98.6 94 18 118/60 94 Nasal Cannula 09/12 0614 94 118/60 09/12 0000 Nasal 3.0L Cannula 09/11 2246 114 110/56 09/11 2246 114 110/56 09/11 2245 116 110/56 09/11 2232 98.2 106 18 102/70 94 09/11 1952 95 Venti Mask 30% 09/11 1700 114 120/50 09/11 1600 Nasal 3.0L Cannula 09/11 1538 114 120/50 09/11 1451 98.5 114 20 120/50 96 Nasal 4.0L Cannula 09/11 1201 105 128/68 09/11 1201 105 128/68 09/11 1201 105 128/68 Intake & Output 09/12 1600 09/12 0800 09/12 0000 Intake Total 360 Output Total 550 300 Balance -190 -300 Intake, Oral 360 Output, Urine 550 300 Patient 189 lb Weight Weight Chair scale Measurement Method Physical Exam General Appearance: Alert, Oriented X3, Cooperative, No Acute Distress Skin: No Rashes, No Breakdown, No Significant Lesion Skin Temp/Moisture Exam: Warm/Dry HEENT: Atraumatic, PERRLA, EOMI, Mucous Membr. moist/pink Neck: Supple, No JVD Cardiovascular: Regular Rate, Normal S1, Normal S2, No Murmurs Lungs: Clear to Auscultation, Normal Air Movement Abdomen: Normal Bowel Sounds, Soft, No Tenderness Neurological: Normal Speech, Strength at 5/5 X4 Ext, Normal Tone, Sensation Intact Extremities: bilateral 2 + pitting edema Assessment/Plan Assessment: Patient is a 76-year-old gentleman with a past mental history significant for recurrent nosebleeds/epistaxis status post cauterization, atrial fibrillation on Xarelto, coronary artery disease (history of multiple stents), cardiomyopathy status post pacemaker/defibrillator, COPD (on 2 L of oxygen at bedtime), history of MRSA pneumonia in June 2016, and C. difficile colitis. Recently discharged from [facility] for acute respiratory failure 2/2 PNA and COPD exacerbation, paroxysmal A. fib with RVR and pulmonary edema. imaging on admission: EKG Results Afib with paced rhytym, rate 108, Qtc 601 CXR Results Normal cardiac size. Bilateral pleural effusions, right greater than left side are unchanged. Vascular congestion without interstitial edema. No change. Echo: Mild left ventricular concentric hypertrophy Moderate decrease in left ventricular systolic function ejection fraction 35% Inferior and posterior akinesis Pacemaker wire in the right ventricular cavity Mild left atrial dilatation Moderate thickening of the anterior mitral valve leaflet Mild thickening/calcification of the posterior mitral valve leaflet. Mild mitral regurgitation. Aortic valve not well visualized, grossly normal. Right ventricular systolic pressure estimated to be elevated at 55 mmHg. The inferior vena cava is moderately dilated. #Hypoxia 2/2 COPD exacerbation and acute on chronic CHF exacerbation(most likely due to uncontrolled A. fib EF less than 35%) Bilateral chest pleural effusion, most likely due to CHF, no evidence of empyema. Admit to telemetry floor CXR shows bilateral pulm effusion and vascular congestion IV lasix 40mg daily Dr Shell on board Continue his home meds #Elevated troponin More likely demand ischemia Elevated trop 0.11; repeat was 0.09, 0,07 EKG shows paced rhythm in afib; no obvious ST changes appreciated #COPD exacerbation He recieved a dose of IV solumedrol 125mg in the ambulance enroute DC IV solumedrol Start on prednisone taper 20 mg bedtime , continue on albuterol 1.25, continue ipratropium inhaler ATC QID Lasix prn Patient might need thoracocentesis if worsening TRC nebs Continue Spiriva Sputum culture # History of atrial fibrillation with RVR: Monitor on telemetry Pt is not on a beta georgi; will start him on a low dose of beta georgi 6.25mg BID Continue amiodarone 200mg TID Continue Xarelto Dr. Ramirez will attempt a second cardioversion ON SATURDAY, and also his EP will be consulted # Acute of Chronic Heart failure with decreased ejection fraction: Elevated pro [id number] Continue IV lasix 40mg daily Echo:Mild left ventricular concentric hypertrophy,Moderate decrease in left ventricular systolic function ejection fraction 35%,Inferior and posterior akinesis,Pacemaker wire in the right ventricular cavity, Mild left atrial dilatation # Diabetes mellitus: Patient presented with a low BG of 64 on admission which increased to 264 after a meal and likely also contributed to by high dose solumedrol administered enroute to the ED Continue Accu-Checks TIDAC and HS NovoLog sliding scale before meals and at bedtime and levemir Diabetic diet Dr. Last on board # Chronic kidney disease stage IIIB: His creatinine of 1.7 seems to be at baseline Will continue low dose Lasix because the last time it was held due to worsening creatinine, patient went into flash pulmonary edema Continue to monitor Daily BEP while on IV Lasix # Mild Hypokalemia Potassium today is 3.9 Will replete with potassium 40mg x 1 Will check magnesium Keep K+ >4 and Mag > 2 #QTC prolongation EKG shows a QTc of 601; repeat is 577 Possibly due to amiodarone used in treating his afib Close monitoring of QTc due to high risk of ventricular arrythmias # Elevated White count trending down Possibly due to steroids; Hold antibiotics for now; was given a dose of antibiotics in the ED CXR does not show any PNA, no urinary symptoms or fever Sputum culture Blood cultures x 2 drawn Will check UA and Urine culture daily CBC Watch for fevers # Transaminitis follow up on liver functions Full Code Mild Pain pathway DVT ppx with xarelto diat: heart healthy and consistent carbohydrate Problem List: 1. Prolonged Q-T interval on ECG 2. Hypokalemia 3. CKD (chronic kidney disease) 4. Pleural effusion 5. Pulmonary edema 6. CAD (coronary artery disease) 7. History of paroxysmal atrial tachycardia 8. Acute and chronic respiratory failure with hypoxia 9. IDDM (insulin dependent diabetes mellitus) Pain Ratin Pain Location: n/a Pain Goal: Remain pain free Pain Plan: Tylenol Oxycodone Tomorrow's Labs & Rationales: CBC BEP DVT/Prophylaxis: pharmacological Consulting Request: Consulting Specialty: Endocrinology
[2016-09-12 09:09] LABS: GRANULOCYTE % 90.9 % (42.2-75.2)
--- NOTE | 2016-09-12 10:01 | PN- Pulmonary ---
Subjective HPI/Critical Care Issues: Anxious On 3 litres fatigued stable other oneal Objective Current Medications: Current Medications Sig/Clare Start time Last Medication Dose Route Stop Time Status Admin Acetaminophen 650 MG Q6P PRN 09/10 1115 AC PO Albuterol Sulfate 3 ML Q4P PRN 09/11 1945 AC INH Albuterol Sulfate 3 ML TID 09/10 2200 DC 09/11 INH 1340 Amiodarone HCl 200 MG TID 09/10 1201 AC 09/12 PO 0952 Diltiazem HCl 30 MG Q8 09/11 1400 AC 09/12 PO 0614 Furosemide 40 MG BID 09/11 2200 AC 09/12 IV 0954 Furosemide 40 MG DAILY 09/10 1242 DC 09/11 IV 0957 Insulin Aspart 0 TIDAC/HS 09/10 2100 AC 09/12 SC 09/12 2358 0948 Insulin Detemir 10 UNITS BID 09/10 1201 AC 09/12 SC 0949 Insulin Human Regular 0 Q6 09/12 2359 AC SC Insulin Human Regular 0 Q6 09/12 0000 CAN SC Ipratropium [place] 2.5 ML TID 09/11 2200 AC 09/12 INH 0955 Ipratropium [place] 1.25 ML ONCE ONE 09/11 1515 DC INH 09/11 1516 Metoprolol Tartrate 6.25 MG BID 09/10 1304 AC 09/12 PO 0952 Prednisone 5 MG DAILY 09/17 1000 AC PO 09/20 0959 Prednisone 10 MG DAILY 09/14 1000 AC PO 09/17 0959 Prednisone 20 MG DAILY 09/11 1000 CAN PO 09/20 0959 Prednisone 20 MG DAILY 09/11 1000 AC 09/12 PO 09/14 0959 0952 Rivaroxaban 15 MG DAILY 09/10 1159 AC 09/12 PO 0953 Sodium Chloride 1 SPRAY Q3 09/10 1200 AC 09/12 REGIS 0951 Tamsulosin HCl 0.4 MG DAILY 09/10 1200 AC 09/12 PO 0952 Tiotropium [place] 1 PUF DAILY 09/10 1200 AC 09/12 INH 0953 Laboratory Tests 09/12 09/11 0636 0749 Chemistry Sodium (137 - 145 mmol/L) 137 Potassium (3.5 - 5.1 mmol/L) 3.9 Chloride (98 - 107 mmol/L) 97 L Carbon Dioxide (22 - 30 mmol/L) 29 Anion Gap (5 - 16) 10 BUN (9 - 20 mg/dL) 53 H Creatinine (0.7 - 1.2 mg/dL) 1.7 H Estimated GFR (>60 ml/min) 39 L BUN/Creatinine Ratio (7 - 25 %) 31.2 H Total Bilirubin (0.2 - 1.3 mg/dL) 0.2 Direct Bilirubin (< 0.4 mg/dL) 0.1 AST (17 - 59 U/L) 37 ALT (21 - 72 U/L) 105 H Alkaline Phosphatase (< 127 U/L) 166 H Total Protein (6.3 - 8.2 g/dL) 5.1 L Albumin (3.5 - 5.0 g/dL) 2.9 L Triglycerides (<150 mg/dL) 114 Cholesterol (< 200 MG/DL) 136 LDL Cholesterol, Calc (65 - 129 mg/dL) 50 L HDL Cholesterol (40 - 60 mg/dL) 64 H Cholesterol/HDL Ratio (0.00 - 4.88 %) 2 Hematology CBC w Diff NO MAN DIFF REQ NO MAN DIFF REQ WBC (4.8 - 10.8 /CUMM) 18.9 H 13.4 H RBC (4.70 - 6.10 /CUMM) 3.59 L 3.66 L Hgb (14.0 - 18.0 G/DL) 9.4 L 9.6 L Hct (42 - 52 %) 29.4 L 29.7 L MCV (80.0 - 94.0 FL) 81.8 81.2 MCH (27.0 - 31.0 PG) 26.3 L 26.3 L RDW (11.5 - 14.5 %) 19.8 H 19.1 H Plt Count (130 - 400 /CUMM) 274 255 MPV (7.4 - 10.4 FL) 8.1 7.8 Gran % (42.2 - 75.2 %) 90.9 H 90.6 H Lymphocytes % (20.5 - 51.1 %) 4.5 L 4.5 L Monocytes % (1.7 - 9.3 %) 4.3 4.9 Eosinophils % (0 - 5 %) 0.2 0 Basophils % (0.0 - 2.0 %) 0.1 0 L Absolute Granulocytes (1.4 - 6.5 /CUMM) 17.2 H 12.1 H Absolute Lymphocytes (1.2 - 3.4 /CUMM) 0.8 L 0.6 L Absolute Monocytes (0.10 - 0.60 /CUMM) 0.8 H 0.7 H Absolute Eosinophils (0.0 - 0.7 /CUMM) 0 0 Absolute Basophils (0.0 - 0.2 /CUMM) 0 0 PUBS MCHC (33.0 - 37.0 G/DL) 32.2 L 32.4 L 09/10 09/10 09/10 1820 1530 1204 Chemistry Troponin I (<0.11 ng/ml) 0.07 0.09 Urines Urine Color (YEL,AMB,STR) YEL Urine Clarity (CLEAR) CLEAR Urine pH (5.0 - 8.0) 6.0 Ur Specific [place] (1.001 - 1.035) 1.010 Urine Protein (NEG,<30 MG/DL) 30 H Urine Ketones (NEG) NEG Urine Nitrite (NEG) NEG Urine Bilirubin (NEG) NEG Urine Urobilinogen (0.1 - 1.0 EU/dl) 0.2 Ur Leukocyte Esterase (NEG) NEG Ur Microscopic SEDIMENT EXAMINED Urine RBC (0 - 5 /HPF) RARE Urine WBC (0 - 2 /HPF) RARE Ur Epithelial Cells (NONE,FEW) RARE Urine Hemoglobin (NEG) NEG Urine Glucose (N MG/DL) NEG Microbiology Date/Time Procedure - Status Source Growth 09/10 1530 Urine Culture - RES URINE ROUT 09/10 1323 Respiratory Culture - CAN LOWER RESP Cancelled: SPECIMEN NOT RECEIVED IN LABORATORY 09/10 1323 Gram Stain - CAN LOWER RESP Cancelled: SPECIMEN NOT RECEIVED IN LABORATORY 09/10 0741 Blood Culture - RES BLOOD 09/10 0703 Blood Culture - RES BLOOD Vital Signs & I&O Last 24 Hrs of Vitals and I&O: Vital Signs Date Time Temp Pulse Resp B/P B/P Pulse O2 O2 Flow FiO2 Mean Ox Delivery Rate 09/12 0952 94 118/60 09/12 0700 98.6 94 18 11860 94 Nasal Cannula 09/12 0614 94 118/60 09/12 0000 Nasal 3.0L Cannula 09/116 114 110/56 09/116 114 110/56 09/11 2244 116 110/56 09/112 98.2 106 18 102/70 94 09/11 1952 95 Venti Mask 30% 09/11 1700 114 120/50 09/11 1600 Nasal 3.0L Cannula 09/11 1538 114 120/50 09/11 1451 98.5 114 20 120 96 Nasal 4.0L Cannula 09/11 1201 105 128/68 09/11 1201 105 128/68 09/11 1201 105 12868 Intake & Output 09/12 1600 09/12 0800 09/12 0000 Intake Total 360 Output Total 550 300 Balance -190 -300 Intake, Oral 360 Output, Urine 550 300 Patient 189 lb Weight Weight Chair scale Measurement Method Impression/Plan Impression/Plan Impression/Plan: Physical Exam General Appearance Alert, Oriented X3, Cooperative, No Acute Distress Skin No Significant Lesion HEENT Atraumatic, PERRLA, Mucous Membr. moist/pink Neck Supple, No JVD Cardiovascular irregularly Irregular HR Lungs Wheezing throughout, bibasilar crackles Abdomen Normal Bowel Sounds, Soft, No Tenderness Extremities 1+ pedal edema bilaterally cxr IMPRESSION: Normal cardiac size. Bilateral pleural effusions, right greater than left side are unchanged. Vascular congestion without interstitial edema. No change. IMPRESSION This is a gentleman with paroxysmal atrial fibrillation on xeralto, significant COPD, biventricular pacer for a previous wide-complex rhythm, previous coronary artery disease, significant pulmonary hypertension, mitral regurgitation, diabetes, previous gout and osteoarthritis, currently on 24-hour oxygen with 40- pack-year smoking history who has quit smoking few yrs ago now here * Acute flash Pulm Edema due to tachy response in a pt with persistant afib * PT with severe copd with worsening due to acute pulmonary edema with rapid atrial fibrillation with acute diastolic heart failure with recent intubation from acute diastolic heart failure. * Effusion due to chf no evidence of empyema etc * No clinical evidence suggestive of active bacterial infection in the lung and patient recently did have significant C. difficile colitis * Significant COPD WIth wheezing compounded by chf now with rapid recovery after his heart rate is down * Recent Cdiff colitis now status post antibiotic therapy no diarrhea * Recent bilateral epistaxis with nasal packing, was on abx for this, now better. PT continues to have sig anemia * Sig COPD with a right middle lobe bronchiectasis from his previous pneumonia with MRSA colonization. * Paroxysmal atrial fibrillation with anticoagulation before, now on amiodarone with biventricular pacer. Pt failed electrical cardioversion on 08/31, now with sig tacy episode on excertion, pending electrical cardioversion * Recent bronchiolitis with Previous small lung nodules * Chronic kidney disease with atrophic kidney. * Hypertension, gout, previous high blood sugar, previous gout. * Mild aortic aneurysm * BPH on Flomax REC Po prednisone 20 and taper to 5 mg standing dose NEbs with ipratropium atc qid, do not use albuterol neb unless pt is wheezing ( use 1.25 mg instead of 2.5 mg) Lasix prn For cardioversion when able Strict sugar control Saline nasal spray Pt would need thoracentesis if worse - ask cardio to see if he can be changed to iv heparin from am if pt does not improve Cont dilt and can increase the dose if xiang
--- NOTE | 2016-09-12 11:58 | PN- Cardiology ---
Subjective Subjective: The patient remains in atrial fibrillation. His rate is in the 90s to low 100s. He is now on low-dose diltiazem and Lopressor. He is tolerating these well. He is still on IV Lasix. His cardioversion has been deferred to tomorrow due to scheduling issues. Objective Vital Signs and I&Os Vital Signs Date Time Temp Pulse Resp B/P B/P Pulse O2 O2 Flow FiO2 Mean Ox Delivery Rate 09/12 0958 88 Room Air Room Air 09/12 0952 94 118/60 09/12 0700 98.6 94 18 118/60 94 Nasal Cannula 09/12 0614 94 118/60 09/12 0000 Nasal 3.0L Cannula 09/11 224 114 110/56 09/11 2246 114 110/56 09/11 2245 116 110/56 09/11 2232 98.2 106 18 102/70 94 09/11 1952 95 Venti Mask 30% 09/11 1700 114 120/50 09/11 1600 Nasal 3.0L Cannula 09/11 1538 114 120/50 09/11 1451 98.5 114 20 120/50 96 Nasal 4.0L Cannula 09/11 1201 105 128/68 09/11 1201 105 128/68 09/11 1201 105 128/68 Intake & Output 09/12 1600 09/12 0800 09/12 0000 09/11 1600 09/11 0800 09/11 0000 Intake Total 360 480 790 Output Total 550 300 800 400 850 Balance -190 -300 -320 -400 -60 Intake, Oral 360 480 550 Intake, Other 240 Number 1 0 Bowel Movements Output, Urine 550 300 800 400 850 Patient 189 lb 187 lb Weight Weight Chair scale Chair scale Measurement Method Physical Exam: He is in no distress, sitting in a chair. HEENT exam normal Chest diffuse rhonchi, decreased breath sounds, mild wheezing. Heart irregular rhythm no murmurs No edema Current Medications: Current Medications Sig/Clare Start time Last Medication Dose Route Stop Time Status Admin Acetaminophen 650 MG Q6P PRN 09/10 1115 AC PO Albuterol Sulfate 3 ML Q4P PRN 09/11 1945 AC INH Albuterol Sulfate 3 ML TID 09/10 2200 DC 09/11 INH 1340 Amiodarone HCl 200 MG TID 09/10 1201 AC 09/12 PO 0952 Diltiazem HCl 30 MG Q8 09/11 1400 AC 09/12 PO 0614 Furosemide 40 MG BID 09/11 2200 AC 09/12 IV 0954 Insulin Aspart 0 TIDAC/HS 09/10 2100 AC 09/12 SC 09/12 2358 0948 Insulin Detemir 10 UNITS BID 09/10 1201 AC 09/12 SC 0949 Insulin Human Regular 0 Q6 09/12 2359 AC SC Insulin Human Regular 0 Q6 09/12 0000 CAN SC Ipratropium [place] 2.5 ML TID 09/11 2200 AC 09/12 INH 0955 Ipratropium [place] 1.25 ML ONCE ONE 09/11 1515 DC INH 09/11 1516 Metoprolol Tartrate 6.25 MG BID 09/10 1304 AC 09/12 PO 0952 Prednisone 5 MG DAILY 09/17 1000 AC PO 09/20 0959 Prednisone 10 MG DAILY 09/14 1000 AC PO 09/17 0959 Prednisone 20 MG DAILY 09/11 1000 AC 09/12 PO 09/14 0959 0952 Rivaroxaban 15 MG DAILY 09/10 1159 AC 09/12 PO 0953 Sodium Chloride 1 SPRAY Q3 09/10 1200 AC 09/12 REGIS 0951 Tamsulosin HCl 0.4 MG DAILY 09/10 1200 AC 09/12 PO 0952 Tiotropium [place] 1 PUF DAILY 09/10 1200 AC 09/12 INH 0953 Results Last 48 Hrs of Labs/Mics: Laboratory Tests 09/12/16 0636: CBC w Diff NO MAN DIFF REQ, RBC 3.59 L, MCV 81.8, MCH 26.3 L, RDW 19.8 H, MPV 8.1, Gran % 90.9 H, Lymphocytes % 4.5 L, Monocytes % 4.3, Eosinophils % 0.2, Basophils % 0.1, Absolute Granulocytes 17.2 H, Absolute Lymphocytes 0.8 L, Absolute Monocytes 0.8 H, Absolute Eosinophils 0, Absolute Basophils 0, PUBS MCHC 32.2 L 09/11/16 0749: Anion Gap 10, Estimated GFR 39 L, BUN/Creatinine Ratio 31.2 H, Total Bilirubin 0.2, Direct Bilirubin 0.1, AST 37, ALT 105 H, Alkaline Phosphatase 166 H, Total Protein 5.1 L, Albumin 2.9 L, Triglycerides 114, Cholesterol 136, LDL Cholesterol, Calc 50 L, HDL Cholesterol 64 H, Cholesterol/HDL Ratio 2, CBC w Diff NO MAN DIFF REQ, RBC 3.66 L, MCV 81.2, MCH 26.3 L, RDW 19.1 H, MPV 7.8, Gran % 90.6 H, Lymphocytes % 4.5 L, Monocytes % 4.9, Eosinophils % 0, Basophils % 0 L, Absolute Granulocytes 12.1 H, Absolute Lymphocytes 0.6 L, Absolute Monocytes 0.7 H, Absolute Eosinophils 0, Absolute Basophils 0, PUBS MCHC 32.4 L 09/10/16 1820: Troponin I 0.07 09/10/16 1530: Urine Color YEL, Urine Clarity CLEAR, Urine pH 6.0, Ur Specific [place] 1.010, Urine Protein 30 H, Urine Ketones NEG, Urine Nitrite NEG, Urine Bilirubin NEG, Urine Urobilinogen 0.2, Ur Leukocyte Esterase NEG, Ur Microscopic SEDIMENT EXAMINED, Urine RBC RARE, Urine WBC RARE, Ur Epithelial Cells RARE, Urine Hemoglobin NEG, Urine Glucose NEG 09/10/16 1204: Troponin I 0.09 Assessment/Plan Assessment/Plan The patient is not in any distress today. He is probably still in mild congestive heart failure. He is diuresing on IV Lasix. His heart rate is not well controlled. His echo shows his left ventricular function is probably not as good as it was previously, possibly due to elevated heart rate. Diltiazem has been added and his heart rate is slightly better. I would recommend increasing his metoprolol which hopefully he will tolerate from a respiratory standpoint. We will attempt cardioversion tomorrow. 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 A repeat chest x-ray is scheduled for today. Continue telemetry? Yes
--- NOTE | 2016-09-12 12:52 | ULTRASOUND REPORT ---
EXAMINATION: US TRIPLEX OF LOWER EXTREMITIES, BILATERAL CLINICAL INFORMATION: Bilateral lower extremity pain. Edema. COMPARISON: None TECHNIQUE: Color-flow triplex imaging with spectral analysis and compression Doppler were performed on the lower extremities. FINDINGS: Respiratory variation and normal compression are noted throughout the lower extremities. The visualized common femoral vein, superficial femoral vein, profunda femoral vein, popliteal vein and midcalf peroneal and posterior tibial venous segments show no evidence of deep venous thrombosis. There is no Mcgill's cyst. IMPRESSION: Normal triplex scan without evidence of deep venous thrombosis involving the lower extremities.
--- NOTE | 2016-09-12 13:03 | RADIOLOGY REPORT ---
EXAMINATION: XR PORTABLE CHEST CLINICAL INFORMATION: Shortness of breath. Pulmonary edema. COMPARISON: Chest x-ray 09/10/2016. TECHNIQUE: Portable 75 degrees semierect view of the chest was obtained. FINDINGS: There has been no interval change in the left chest AICD/pacemaker generator with multiple leads. The right lung is hypoexpanded compared to the left, with a right pleural effusion and likely atelectasis/consolidation at the right base, similar compared to the prior study. There may be trace left pleural effusion. The cardiac silhouette is at the upper limits of normal. The aortic arch is calcified and unfolded. Mild prominence of the central pulmonary vasculature is noted, without evidence of overt interstitial edema. There are no acute osseous findings. IMPRESSION: 1. The study redemonstrates right greater than left pleural effusions. 2. There is atelectasis/consolidation at the right base, unchanged. 3. There is mild central pulmonary vascular prominence without interstitial edema.
--- NOTE | 2016-09-12 13:11 | PN- Att Addend ---
Attending Addendum Attending Brief Note Patient in no respiratory distress,in the chair mad that he was NPO for cardioversion but due to schedule problems was deferred till tomorrow AM patient had US No DVT CXR has some effussions. No other changes legs are down still in atrial fibrillation slower ventricular response on low dose medications. Current Medications Sig/Clare Start time Last Medication Dose Route Stop Time Status Admin Acetaminophen 650 MG Q6P PRN 09/10 1115 AC PO Albuterol Sulfate 3 ML Q4P PRN 09/11 1945 AC INH Albuterol Sulfate 3 ML TID 09/10 2200 DC 09/11 INH 1340 Amiodarone HCl 200 MG TID 09/10 1201 AC 09/12 PO 0952 Diltiazem HCl 30 MG Q8 09/11 1400 AC 09/12 PO 0614 Furosemide 40 MG BID 09/11 2200 AC 09/12 IV 0954 Insulin Aspart 0 TIDAC/HS 09/10 2100 AC 09/12 SC 09/12 2358 0948 Insulin Detemir 10 UNITS BID 09/10 1201 AC 09/12 SC 0949 Insulin Human Regular 0 Q6 09/12 2359 AC SC Insulin Human Regular 0 Q6 09/12 0000 CAN SC Ipratropium [place] 2.5 ML TID 09/11 2200 AC 09/12 INH 0955 Ipratropium [place] 1.25 ML ONCE ONE 09/11 1515 DC INH 09/11 1516 Metoprolol Tartrate 6.25 MG BID 09/10 1304 AC 09/12 PO 0952 Prednisone 5 MG DAILY 09/17 1000 AC PO 09/20 0959 Prednisone 10 MG DAILY 09/14 1000 AC PO 09/17 0959 Prednisone 20 MG DAILY 09/11 1000 AC 09/12 PO 09/14 0959 0952 Rivaroxaban 15 MG DAILY 09/10 1159 AC 09/12 PO 0953 Sodium Chloride 1 SPRAY Q3 09/10 1200 AC 09/12 REGIS 0951 Tamsulosin HCl 0.4 MG DAILY 09/10 1200 AC 09/12 PO 0952 Tiotropium [place] 1 PUF DAILY 09/10 1200 AC 09/12 INH 0953 Vital Signs Date Time Temp Pulse Resp B/P B/P Pulse O2 O2 Flow FiO2 Mean Ox Delivery Rate 09/12 0958 88 Room Air Room Air 09/12 0952 94 118/60 09/12 0700 98.6 94 18 118/60 94 Nasal Cannula 09/12 0614 94 118/60 Intake & Output 09/12 1600 Intake Total Output Total 425 Balance -425 Output, Urine 425 Patient 189 lb Weight Weight Chair scale Measurement Method
[2016-09-12 14:49] VITALS: BP 118/56
[2016-09-12 22:26] VITALS: BP 124/68
[2016-09-13 07:06] VITALS: BP 118/60
--- NOTE | 2016-09-13 07:13 | PN- Housestaff ---
Subjective Follow-up For: -Acute hypoxic respiratory failure -CHF COPD exacerbation -A. fib with RVR Complaints: SOB Tele-Events Since Last Visit: S pacing Subjective: I personally examined the patient at bedside, he was sitting comfortably in bed, in no acute distress, on nasal oxygen 4 L Review of Systems Constitutional: Denies: no symptoms. EENTM: Denies: no symptoms. Cardiovascular: Reports: peripheral edema. Respiratory: Reports: cough, short of breath. Gastrointestinal: Denies: no symptoms. Genitourinary: Denies: no symptoms. Musculoskeletal: Denies: no symptoms. Objective Last 24 Hrs of Vital Signs/I&O Vital Signs Date Time Temp Pulse Resp B/P B/P Pulse O2 O2 Flow FiO2 Mean Ox Delivery Rate 09/13 0706 97.9 96 20 118/60 96 Nasal Cannula 09/13 0644 96 118/70 09/13 0000 94 Nasal 3.0L Cannula 09/12 2226 98.4 93 20 124/68 97 Venti Mask 09/12 2224 65 124/60 09/12 2223 65 124/68 09/12 2223 65 124/60 09/12 1935 93 Venti Mask 30% 09/12 1634 88 120/60 09/12 1600 Venti Mask 09/12 1502 88 120/62 09/12 1449 98.2 96 20 118/56 97 Venti Mask 4.0L Intake & Output 09/13 1600 09/13 0800 09/13 0000 Intake Total 0 670 Output Total 600 1200 Balance -600 -530 Intake, IV 20 Intake, Oral 0 650 Output, Urine 600 1200 Physical Exam General Appearance: Alert, Oriented X3, Cooperative, No Acute Distress Skin: No Rashes, No Breakdown, No Significant Lesion Skin Temp/Moisture Exam: Warm/Dry HEENT: Atraumatic, PERRLA, EOMI, Mucous Membr. moist/pink Neck: Supple, No JVD Cardiovascular: Regular Rate, Normal S1, Normal S2, No Murmurs Lungs: bilateral wheezes and crepitation Abdomen: Normal Bowel Sounds, Soft, No Tenderness Neurological: Normal Speech, Strength at 5/5 X4 Ext, Normal Tone, Sensation Intact Extremities: bilateral 2+ pitting edema of both LL Assessment/Plan Assessment: Patient is a 76-year-old gentleman with a past mental history significant for recurrent nosebleeds/epistaxis status post cauterization, atrial fibrillation on Xarelto, coronary artery disease (history of multiple stents), cardiomyopathy status post pacemaker/defibrillator, COPD (on 2 L of oxygen at bedtime), history of MRSA pneumonia in June 2016, and C. difficile colitis. Recently discharged from [facility] for acute respiratory failure 2/2 PNA and COPD exacerbation, paroxysmal A. fib with RVR and pulmonary edema. imaging on admission: EKG Results Afib with paced rhytym, rate 108, Qtc 601 CXR Results Normal cardiac size. Bilateral pleural effusions, right greater than left side are unchanged. Vascular congestion without interstitial edema. No change. Echo: Mild left ventricular concentric hypertrophy Moderate decrease in left ventricular systolic function ejection fraction 35% Inferior and posterior akinesis Pacemaker wire in the right ventricular cavity Mild left atrial dilatation Moderate thickening of the anterior mitral valve leaflet Mild thickening/calcification of the posterior mitral valve leaflet. Mild mitral regurgitation. Aortic valve not well visualized, grossly normal. Right ventricular systolic pressure estimated to be elevated at 55 mmHg. The inferior vena cava is moderately dilated. #ACUTE HYPOXIC RESPIRATORY FAILURE 2/2 COPD exacerbation and acute exacerbation of chronic CHF (most likely due to uncontrolled A. fib EF less than 35%) Bilateral chest pleural effusion, most likely due to CHF, no evidence of empyema. continue to monitor on telemetry floor CXR shows bilateral pulm effusion and vascular congestion IV lasix 40mg daily Dr Shell on board Continue his home meds #DEMAND ISCHEMIA More likely his elevated trops on admission is 2/2 demand ischemia initial trop 0.11; repeat was 0.09, 0,07 EKG shows paced rhythm in afib; no obvious ST changes appreciated #COPD EXACERBATION He recieved a dose of IV solumedrol 125mg in the ambulance enroute DC IV solumedrol Start on prednisone taper 20 mg bedtime , continue on albuterol 1.25, continue ipratropium inhaler ATC QID Lasix PO BID Patient might need thoracocentesis if worsening TRC nebs Continue Spiriva Sputum culture # History of atrial fibrillation with RVR: -He had cardioversion today and converted to NSR. -Continue to Monitor on telemetry -Continue low dose of beta georgi 12.5mg BID -Continue amiodarone 200mg once daily -Continue Xarelto - EP will be consulted if he failos to maintian NSR # Acute on Chronic Heart failure with decreased ejection fraction: Elevated pro [id number] Continue IV lasix 40mg daily Echo:Mild left ventricular concentric hypertrophy,Moderate decrease in left ventricular systolic function ejection fraction 35%,Inferior and posterior akinesis,Pacemaker wire in the right ventricular cavity, Mild left atrial dilatation # Diabetes mellitus: -[facility] had multiple hypoglycemic attacks -His Levermir is reduced to 10 U once daily in the morning - His novolog schedule has been changed to TID and his bed time insulin was DC as per -Dr Costello recommendation. -Continue Accu-Checks -Diabetic diet -Dr. Last on board # Chronic kidney disease stage IIIB: His creatinine of 1.7 seems to be at baseline Will continue low dose Lasix because the last time it was held due to worsening creatinine, patient went into flash pulmonary edema Continue to monitor Daily BEP while on IV Lasix # Mild Hypokalemia Potassium today is 3.7 Will replete with potassium 40mg x 1 Will check magnesium Keep K+ >4 and Mag > 2 #QTC prolongation EKG on admission shows a QTc of 601; repeat is 577 Possibly due to amiodarone used in treating his afib Close monitoring of QTc due to high risk of ventricular arrythmias # Elevated White count trending down Possibly due to steroids; Hold antibiotics for now; was given a dose of antibiotics in the ED CXR does not show any PNA, no urinary symptoms or fever Sputum culture Blood cultures x 2 drawn Will check UA and Urine culture daily CBC Watch for fevers # Transaminitis follow up on liver functions Full Code Mild Pain pathway DVT ppx with xarelto diat: heart healthy and consistent carbohydrate Problem List: 1. Prolonged Q-T interval on ECG 2. Hypokalemia 3. CKD (chronic kidney disease) 4. Pleural effusion 5. Pulmonary edema 6. CAD (coronary artery disease) 7. History of paroxysmal atrial tachycardia 8. Acute and chronic respiratory failure with hypoxia 9. Acute diastolic CHF (congestive heart failure) 10. Gout Pain Ratin Pain Location: N/A Alt Method for Pain Treatment: Other(free text) Pain Goal: Remain pain free Pain Plan: Tylenol Oxycodone Tomorrow's Labs & Rationales: N/A DVT/Prophylaxis: pharmacological Consulting Request: Consulting Specialty: Endocrinology
--- NOTE | 2016-09-13 07:36 | PN- Diabetes ---
Assessment/Plan Assessment: The patient had a low blood sugar this morning. He was scheduled for cardioversion this morning. He was nothing by mouth and no IV fluids were given because of fear of congestive heart failure. His sugar was less than 50. He received Levemir 10 units twice a day yesterday and no insulin since his last dose of Levemir yesterday. The patient is on prednisone 20 mg once a day and this is going to be tapered further. Plan: Suggest reduce Levemir to 10 units once a day in the morning. Also change sliding-scale NovoLog before meals 3 times a day to 80-150 give 4 units NovoLog, 151-200 give 5 units NovoLog, 201-250 give 6 units NovoLog, 251-300 give 7 units NovoLog, 301-350 give 8 units NovoLog, 351-400 give 9 units NovoLog. Bedtime sliding-scale should be discontinued. Subjective Subjective: Does not feel well because of low sugar Objective Last 24 Hrs of Vital Signs/I&O Vital Signs Date Time Temp Pulse Resp B/P B/P Pulse O2 O2 Flow FiO2 Mean Ox Delivery Rate 09/13 0706 97.9 96 20 11860 96 Nasal Cannula 09/13 0644 96 118/70 09/13 0000 94 Nasal 3.0L Cannula 09/12 2226 98.4 93 20 124/68 97 Venti Mask 09/12 2224 65 124/60 09/12 2223 65 124/68 09/12 2223 65 124/60 09/12 1935 93 Venti Mask 30% 09/12 1634 88 120/60 09/12 1600 Venti Mask 09/12 1502 88 120/62 09/12 1449 98.2 96 20 118/56 97 Venti Mask 4.0L 09/12 0958 88 Room Air Room Air 09/12 0952 94 118/60 09/12 0900 Venti Mask Intake & Output 09/13 0800 09/13 0000 09/12 1600 Intake Total 0 670 360 Output Total 600 1200 425 Balance -600 -530 -65 Intake, IV 20 Intake, Oral 0 650 360 Number 0 Bowel Movements Output, Urine 600 1200 425 Patient 189 lb Weight Weight Chair scale Measurement Method Vital Signs Date Time Temp Pulse Resp B/P B/P Pulse O2 O2 Flow FiO2 Mean Ox Delivery Rate 09/13 0706 97.9 96 20 11860 96 Nasal Cannula 09/13 0644 96 118/70 09/13 0000 94 Nasal 3.0L Cannula 09/12 2225 98.4 93 20 124/68 97 Venti Mask 09/12 2224 65 124/60 09/12 2223 65 124/68 09/12 2223 65 124/60 09/12 1935 93 Venti Mask 30% 09/12 1634 88 120/60 09/12 1600 Venti Mask 09/12 1502 88 120/62 09/12 1449 98.2 96 20 118/56 97 Venti Mask 4.0L 09/12 0958 88 Room Air Room Air 09/12 0952 94 118/60 09/12 0900 Venti Mask Intake & Output 09/13 0800 09/13 0000 09/12 1600 Intake Total 0 670 360 Output Total 600 1200 425 Balance -600 -530 -65 Intake, IV 20 Intake, Oral 0 650 360 Number 0 Bowel Movements Output, Urine 600 1200 425 Patient 189 lb Weight Weight Chair scale Measurement Method Physical Exam General Appearance: alert, awake, anxious Head: normal appearance Neck: normal inspection Respiratory: normal breath sounds Cardiovascular: regular rate/rhythm Abdomen: normal bowel sounds, soft Extremities: normal inspection Current Medications: Current Medications Sig/Clare Start time Last Medication Dose Route Stop Time Status Admin Acetaminophen 650 MG Q6P PRN 09/10 1115 AC PO Albuterol Sulfate 3 ML Q4P PRN 09/11 1945 AC 09/12 INH 1935 Amiodarone HCl 200 MG TID 09/10 1201 AC 09/12 PO 2223 Dextrose 25 GM ONCE ONE 09/13 0645 DC 09/13 IV 09/13 0646 0644 Diltiazem HCl 30 MG Q8 09/11 1400 AC 09/13 PO 0644 Furosemide 40 MG BID 09/11 2200 AC 09/12 IV 2219 Insulin Aspart 0 TIDAC/HS 09/10 2100 DC 09/12 SC 09/12 2358 1845 Insulin Detemir 10 UNITS BID 09/10 1201 AC 09/12 SC 2219 Insulin Human Regular 0 Q6 09/12 2359 AC SC Ipratropium [place] 2.5 ML TID 09/11 2200 AC 09/12 INH 1935 Metoprolol Tartrate 12.5 MG BID 09/12 2200 AC 09/12 PO 2224 Metoprolol Tartrate 6.25 MG BID 09/10 1304 DC 09/12 PO 0952 Potassium Chloride 40 MEQ ONCE ONE 09/12 1345 CAN PO 09/12 1346 Prednisone 5 MG DAILY 09/17 1000 AC PO 09/20 0959 Prednisone 10 MG DAILY 09/14 1000 AC PO 09/17 0959 Prednisone 20 MG DAILY 09/11 1000 AC 09/12 PO 09/14 0959 0952 Rivaroxaban 15 MG DAILY 09/10 1159 AC 09/12 PO 0953 Sodium Chloride 1 SPRAY Q3 09/10 1200 AC 09/13 REGIS 0644 Tamsulosin HCl 0.4 MG DAILY 09/10 1200 AC 09/12 PO 0952 Tiotropium [place] 1 PUF DAILY 09/10 1200 AC 09/12 INH 0953 Findings Pertinent Lab/[place] Results: Laboratory Tests 09/13 621 Chemistry Sodium Pending Potassium Pending Chloride Pending Carbon Dioxide Pending Anion Gap Pending BUN Pending Creatinine Pending BUN/Creatinine Ratio Pending Glucose Pending Hematology CBC w Diff Pending WBC Pending RBC Pending Hgb Pending Hct Pending MCV Pending MCH Pending RDW Pending Plt Count Pending MPV Pending PUBS MCHC Pending
[2016-09-13 08:08] LABS: ABSOLUTE BASOPHIL COUNT 0.1 /CUMM (0.0-0.2); ABSOLUTE EOSINOPHIL COUNT 0.1 /CUMM (0.0-0.7); ABSOLUTE GRANULOCYTE CT 16.9 /CUMM (1.4-6.5); ABSOLUTE LYMPH COUNT 1.6 /CUMM (1.2-3.4); ABSOLUTE MONOCYTE COUNT 1.2 /CUMM (0.10-0.60); BASOPHIL % 0.3 % (0.0-2.0); EOSINOPHIL % 0.3 % (0-5); HEMATOCRIT 31.6 % (42-52); MEAN CORPUSCULAR HGB 25.9 PG (27.0-31.0); MEAN CORPUSCULAR HGB CONC 31.7 G/DL (33.0-37.0); MEAN CORPUSCULAR VOLUME 81.8 FL (80.0-94.0); MEAN PLATELET VOLUME 8.2 FL (7.4-10.4); RBC DISTRIBUTION WIDTH 19.6 % (11.5-14.5); RED BLOOD CELL CT 3.86 /CUMM (4.70-6.10); WHITE BLOOD CELL COUNT 19.8 /CUMM (4.8-10.8)
[2016-09-13 08:53] LABS: GRANULOCYTE % 85.5 % (42.2-75.2); PLATELET COUNT 261 /CUMM (130-400)
--- NOTE | 2016-09-13 11:02 | PN- Pulmonary ---
Subjective HPI/Critical Care Issues: I personally examined the patient at bedside, he was sitting comfortably in bed, in no acute distress, on nasal oxygen 4 L Did have a hypoglycemic episode Still wheezing Objective Current Medications: Current Medications Sig/Clare Start time Last Medication Dose Route Stop Time Status Admin Acetaminophen 650 MG Q6P PRN 09/10 1115 AC PO Albuterol Sulfate 3 ML Q4P PRN 09/11 1945 AC 09/12 INH 1935 Amiodarone HCl 200 MG TID 09/10 1201 AC 09/12 PO 2223 Dextrose 25 GM ONCE ONE 09/13 0645 DC 09/13 IV 09/13 0646 0644 Diltiazem HCl 30 MG Q8 09/11 1400 AC 09/13 PO 0644 Furosemide 40 MG BID 09/11 2200 AC 09/12 IV 2219 Insulin Aspart 0 TIDAC 09/13 1200 AC SC Insulin Aspart 0 TIDAC/HS 09/10 2100 DC 09/12 SC 09/12 2358 1845 Insulin Detemir 10 UNITS DAILY 09/13 1000 AC SC Insulin Detemir 10 UNITS BID 09/10 1201 DC 09/12 SC 2219 Insulin Human Regular 6 UNITS .STK-MED ONE 09/13 0051 DC IV 09/13 0052 Insulin Human Regular 0 Q6 09/12 2359 DC SC Ipratropium [place] 2.5 ML TID 09/11 2200 AC 09/13 INH 1033 Metoprolol Tartrate 12.5 MG BID 09/12 2200 AC 09/12 PO 2224 Metoprolol Tartrate 6.25 MG BID 09/10 1304 DC 09/12 PO 0952 Potassium Chloride 40 MEQ ONCE ONE 09/12 1345 CAN PO 09/12 1346 Prednisone 5 MG DAILY 09/17 1000 AC PO 09/20 0959 Prednisone 10 MG DAILY 09/14 1000 AC PO 09/17 0959 Prednisone 20 MG DAILY 09/11 1000 AC 09/12 PO 09/14 0959 0952 Rivaroxaban 15 MG DAILY 09/10 1159 AC 09/12 PO 0953 Sodium Chloride 1 SPRAY Q3 09/10 1200 AC 09/13 REGIS 0644 Tamsulosin HCl 0.4 MG DAILY 09/10 1200 AC 09/12 PO 0952 Tiotropium [place] 1 PUF DAILY 09/10 1200 AC 09/12 INH 0953 Vital Signs & I&O Last 24 Hrs of Vitals and I&O: Vital Signs Date Time Temp Pulse Resp B/P B/P Pulse O2 O2 Flow FiO2 Mean Ox Delivery Rate 09/13 0706 97.9 96 20 118/60 96 Nasal Cannula 09/13 0644 96 118/70 09/13 0000 94 Nasal 3.0L Cannula 09/12 2226 98.4 93 20 124/68 97 Venti Mask 09/12 2224 65 124/60 09/12 2223 65 124/68 09/12 2223 65 124/60 09/12 1935 93 Venti Mask 30% 09/12 1634 88 120/60 09/12 1600 Venti Mask 09/12 1502 88 120/62 09/12 1449 98.2 96 20 118/56 97 Venti Mask 4.0L Intake & Output 09/13 1600 09/13 0800 09/13 0000 Intake Total 0 670 Output Total 600 1200 Balance -600 -530 Intake, IV 20 Intake, Oral 0 650 Output, Urine 600 1200 Impression/Plan Impression/Plan Impression/Plan: Physical Exam General Appearance Alert, Oriented X3, Cooperative, No Acute Distress Skin No Significant Lesion HEENT Atraumatic, PERRLA, Mucous Membr. moist/pink Neck Supple, No JVD Cardiovascular irregularly Irregular HR Lungs Wheezing throughout, bibasilar crackles Abdomen Normal Bowel Sounds, Soft, No Tenderness Extremities 1+ pedal edema bilaterally cxr IMPRESSION: Normal cardiac size. Bilateral pleural effusions, right greater than left side are unchanged. Vascular congestion without interstitial edema. No change. IMPRESSION This is a gentleman with paroxysmal atrial fibrillation on xeralto, significant COPD, biventricular pacer for a previous wide-complex rhythm, previous coronary artery disease, significant pulmonary hypertension, mitral regurgitation, diabetes, previous gout and osteoarthritis, currently on 24-hour oxygen with 40- pack-year smoking history who has quit smoking few yrs ago now here * REsolved Acute flash Pulm Edema due to tachy response in a pt with persistant afib * PT with severe copd with worsening due to acute pulmonary edema with rapid atrial fibrillation with acute diastolic heart failure with recent intubation from acute diastolic heart failure. * Effusion due to chf no evidence of empyema etc * No clinical evidence suggestive of active bacterial infection in the lung and patient recently did have significant C. difficile colitis * Significant COPD WIth wheezing * Recent Cdiff colitis now status post antibiotic therapy no diarrhea * Recent bilateral epistaxis with nasal packing, was on abx for this, now better. PT continues to have sig anemia * Sig COPD with a right middle lobe bronchiectasis from his previous pneumonia with MRSA colonization. * Paroxysmal atrial fibrillation with anticoagulation before, now on amiodarone with biventricular pacer. Pt failed electrical cardioversion on 08/31, now with sig tacy episode on excertion, pending electrical cardioversion * Recent bronchiolitis with Previous small lung nodules * Chronic kidney disease with atrophic kidney. * Hypertension, gout, previous high blood sugar, previous gout. * Mild aortic aneurysm * BPH on Flomax REC Po prednisone 20 and taper to 5 mg standing dose NEbs with ipratropium atc qid, do not use albuterol neb unless pt is wheezing ( use 1.25 mg instead of 2.5 mg) start flovent 220 mcg 2 puff bid Lasix prn For cardioversion when able Saline nasal spray Pt would need thoracentesis if worse - ask cardio to see if he can be changed to iv heparin from am if pt does not improve Cont dilt and can increase the dose if xiang
--- NOTE | 2016-09-13 14:09 | Patient Discharge Instructions ---
Discharge Instructions General Discharge Information You were seen/treated for: #1 acute hypoxic respiratory failure #2 COPD exacerbation #3 A. fib with RVR #4 acute on chronic heart failure with decreased ejection fraction #5 DM Special Instructions: #1 please follow-up with your PCP in 1 week of discharge #2 please follow-up with your digital marketing strategist in 1 week of discharge #3 please follow-up with your safety and health consultant in 1 week of discharge #3 please follow-up with your machine baster in 1 week discharge Diet Continue normal diet: Yes Recommended Diet: Diabetic, Heart Healthy Activity Full Activity/No Limits: Yes Acute Coronary Syndrome Inclusion Criteria At DC or during hospital stay patient has or had the following: ACS DIAGNOSIS No Discharge Core Measures Meds if any: Prescribed or Continued at Discharge Meds if any: NOT Prescribed or Continued at Discharge Congestive Heart Failure Inclusion Criteria At DC or during hospital stay patient has or had the following: CHF DIAGNOSIS Yes Discharge Core Measures Meds if any: Prescribed or Continued at Discharge JEAN-PAUL/ARB for EF <40% No Meds if any: NOT Prescribed or Continued at Discharge No JEAN-PAUL/ARB d/t Renal Failure/Azotemia Cerebrovascular accident Inclusion Criteria At DC or during hospital stay patient has or had the following: CVA/TIA Diagnosis No Discharge Core Measures Meds if any: Prescribed or Continued at Discharge Meds if any: NOT Prescribed or Continued at Discharge No Antithrombotic d/t Pt Refused Treatment Venous thromboembolism Inclusion Criteria VTE Diagnosis No VTE Type NONE VTE Confirmed by (Test) NONE Discharge Core Measures - Per Current guidelines, there needs to be overlap - treatment for the first 5 days of Warfarin therapy. - If discharged on Warfarin prior to 5 days of - overlap therapy, the patient will need to be - assessed for post discharge needs including - *Post discharge parental anticoagulation - *Warfarin and/or parental anticoagulation education - *Follow up date to check INR post discharge At least 5 days overlap therapy as Inpatient No Meds if any: Prescribed or Continued at Discharge Note: Overlap Therapy is Warfarin and Anticoagulant Meds if any: NOT Prescribed or Continued at Discharge
--- NOTE | 2016-09-13 14:18 | Discharge Summary ---
See Addendum Visit Information Visit Dates Admission Date: 09/10/16 Discharge Date: 09/14/16 Hospital Course Course Attending Physician: SCARLETT WATT MD Primary Care Physician: SCARLETT WATT MD Consulting Request: Consulting Specialty: Endocrinology Hospital Course: Patient is a 76-year-old gentleman with a past mental history significant for recurrent nosebleeds/epistaxis status post cauterization, atrial fibrillation on Xarelto, coronary artery disease (history of multiple stents), cardiomyopathy status post pacemaker/defibrillator, COPD (on 2 L of oxygen at bedtime), history of MRSA pneumonia in June 2016, and C. difficile colitis. Recently discharged from [facility] for acute respiratory failure 2/2 PNA and COPD exacerbation, paroxysmal A. fib with RVR and pulmonary edema. imaging on admission: EKG Results Afib with paced rhytym, rate 108, Qtc 601 CXR Results Normal cardiac size. Bilateral pleural effusions, right greater than left side are unchanged. Vascular congestion without interstitial edema. No change. Echo on 09/10/16 Mild left ventricular concentric hypertrophy Moderate decrease in left ventricular systolic function ejection fraction 35% Inferior and posterior akinesis Pacemaker wire in the right ventricular cavity Mild left atrial dilatation Moderate thickening of the anterior mitral valve leaflet Mild thickening/calcification of the posterior mitral valve leaflet. Mild mitral regurgitation. Aortic valve not well visualized, grossly normal. Right ventricular systolic pressure estimated to be elevated at 55 mmHg. The inferior vena cava is moderately dilated. #HYPOXIA Most likely was 2/2 COPD exacerbation and acute exacerbation of chronic CHF ( possibly due to uncontrolled A. fib EF less than 35%). In addition the patient was found to have Bilateral pleural effusion, most likely due to CHF. Was monitored on telemetry. And was treated with IV Lasix, inhalers, TRC, nebulizers, oxygen and prednisone taper.Dr Shell was on board #ELEVATED TROPONIN On admission the patient was found to have trivial increase in troponins. Troponins trended down and EKG was normal which ruled out ACS. #COPD EXACERBATION Patient had history of COPD, on admission he complained of shortness of breath. He was treated with a dose of IV solumedrol 125mg in the ambulance enroute He was started .Start on prednisone taper 20 mg PO, in addition he was treated with albuterol when necessary and ipratropium inhaler ATC QID. He was also treated with Lasix when necessary for the pulmonary edema.He was discharged on prednisone taper. # History of atrial fibrillation with RVR: The patient was recently discharged from [facility] for A. fib with RVR. Cardioversion was tried but he fails to convert to NSR. He was kept on amiodarone, Lopressor 12.5 and Xelarto. During this admission cardioversion was tried again and the patient was able to maintain NSR. Amiodarone , cardizem, Lopressor and Xeralto. # Acute on Chronic Heart failure with decreased ejection fraction: -The patient was found to have Elevated pro [id number] and ejection fraction of 35%. He was treated with IV lasix 40mg daily. ACEI were avoided due to renal impairment. # Diabetes mellitus: The patient had history of diabetes mellitus. He was treated with Detemir and Novolog . He was monitored with Accu-checks . He was kept ondiabetic diet. However during this admission his blood suger were running low. On discharge Dr. Last recommended discontinuing all insulin. He was discharged on Metformin 500 mg BID. He was advised to follow up with Dr. Last. # Chronic kidney disease stage IIIB: His creatinine of 1.7 seems to be at baseline. He was kept on low dose Lasix because the last time it was held due to worsening creatinine, patient went into flash pulmonary edema. His BEP were closely monitored # Mild Hypokalemia It was repleted by PO potassium, and his PCP was closely monitored #QTC prolongation EKG on admission showed a QTc of 601;Possibly due to amiodarone used in treating his afib. Hiis EKG was closely monitored # Elevated White count Possibly due to steroids; it trended down during this admission. He was given a dose of antibiotics in the ED and then He was monitored off antibiotics.His CXR did not show any PNA, He did not have any urinary symptoms or fever. Blood cultures x 2 was drawn He was monitored with daily CBC and vitals. # Transaminitis His liver functions were monitored. Full Code Mild Pain pathway DVT ppx with xarelto diet: heart healthy and consistent carbohydrate Allergies: Coded Allergies: NO KNOWN ALLERGIES (UNKNOWN 08/10/16) Disposition Summary Disposition Principal Diagnosis: #HYPOXIA #COPD EXACERBATION #COPD EXACERBATION # History of atrial fibrillation with RVR: Additional Diagnosis: #Acute on chronic heart failure with decreased ejection fraction #DM #Chronic kidney disease stage III P #Mild hypokalemia Discharge Disposition: home health services Discharge Instructions General Discharge Information Code Status: Full Code Patient's Diet: Heart healthy/consistent carbohydrate Patient's Activity: As tolerated Follow-Up Instructions/Appts: #1 please follow-up with your PCP in 1 week of discharge #2 please follow-up with your dropper tank storage in 1 week of discharge #3 please follow-up with your industrial production manager in 1 week of discharge #3 please follow-up with your information architect in 1 week discharge Medications at Discharge Discharge Medications: Stop taking the following medications: Insulin Aspart, Recombinant (Novolog Flexpen) 100 UNIT/ML INSULN.PEN Inject into fatty tissue As Directed Qty = 1 Amiodarone HCl (Amiodarone HCl) 200 MG TABLET ORAL THREE TIMES DAILY Qty = 90 Insulin Glargine,Hum.rec.anlog (Lantus Solostar) 100 UNIT/ML (3 ML) INSULN.PEN Inject into fatty tissue TWICE DAILY Qty = 1 Continue taking these medications: Multivit-Min/FA/Lycopen/Lutein (Centrum Silver Tablet) 0.4 MG-300 MCG-250 MCG TABLET 1 Tablet ORAL DAILY Comments: NOT GIVEN IN HOSPITAL Fluticasone/Vilanterol (Breo Ellipta 100-25 Mcg INH) 100 MCG-25 MCG/DOSE BLST.W.DEV 1 PUFF Inhale through mouth DAILY Comments: NOT GIVEN IN HOSPITAL Tamsulosin HCl (Flomax) 0.4 MG CAP.ER.24H 1 Capsule ORAL DAILY Comments: Last Taken: 09/14/16 Time: 830 AM Allopurinol (Allopurinol) 300 MG TABLET 1 Tablet ORAL DAILY Comments: NOT GIVEN IN HOSPITAL Albuterol Sulfate (Ventolin Hfa) 18 GM HFA.AER.AD 2 Puff Inhale through mouth EVERY SIX HOURS NEEDED as needed for SHORTNESS OF BREATH Days = 30 Comments: NOT GIVEN IN HOSPITAL Tiotropium Harris (Spiriva) 18 MCG CAP.W.DEV 1 Capsule Inhale through mouth DAILY Qty = 30 Comments: Last Taken: 09/14/16 Time: 830 AM Pravastatin Sodium (Pravastatin Sodium) 80 MG TABLET 1 Tablet ORAL DAILY Comments: NOT GIVEN Vitamin B Complex (B Complex) 1 EACH TABLET 1 Tablet ORAL DAILY Comments: NOT GIVEN IN HOSPITAL Magnesium Oxide (Magnesium Oxide) 400 MG TABLET 1 Tablet ORAL DAILY Qty = 30 Comments: Last Taken:09/06/16 Time:9AM Lactobac Cmb #3/Fos/Pantethine (Probiotic & Acidophilus Cap) 300MM-250 CAPSULE 1 Capsule ORAL TWICE DAILY Qty = 20 Comments: NOT GIVEN Rivaroxaban (Xarelto) 15 MG TABLET 1 Tablet ORAL DAILY Qty = 30 Comments: Last Taken: 09/14/16 Time: 830 AM Albuterol Sulfate (Albuterol Sulfate) 1.25 MG/3 ML VIAL.NEB 1 Vial Inhale Solution EVERY 4-6 HOURS as needed for COPD Qty = 150 Comments: Last Taken:09/13/16 Time: 2PM Furosemide (Lasix) 40 MG TABLET 1 Tablet ORAL TWICE DAILY Qty = 60 Comments: Last Taken:09/14/16 Time: 830 AM Bacitracin (Bacitracin) 500 UNIT/GRAM OINT...G. 1 Application On the skin 2200 Days = 30 Instructions: apply to affected area(s) Comments: NOT GIVEN Sodium Chloride (Saline Nasal [place]) 0.65 % SPRAY 1 [place] Both sides of nose EVERY 3 HOURS Comments: Last Taken: Time: 830 AM Start taking the following new medications: Amiodarone HCl (Amiodarone HCl) 200 MG TABLET 1 Tablet ORAL DAILY Qty = 30 No Refills Instructions: PLEASE TAKE ONE TABLET DAILY Comments: Last Taken: 09/14/16 Time: 830 AM Metoprolol Succinate (Metoprolol Succinate) 25 MG TAB 0.5 Tablet ORAL DAILY Qty = 30 No Refills Instructions: PLEASE TAKE 0.5 TAB PO BID DAILY Comments: Last Taken: 09/14/16 Time: 830 AM Diltiazem HCl (Diltiazem HCl) 30 MG TABLET 1 Tablet ORAL EVERY 8 HOURS Qty = 90 No Refills Instructions: PLEASE TAKE ONE TAB PO Q8 HRS Comments: Last Taken: 09/14/16 Time: 630 AM Furosemide (Lasix) 40 MG TABLET 1 Tablet ORAL TWICE DAILY Qty = 60 No Refills Instructions: PLEASE TAKE ONE TAB PO BID Comments: Last Taken: 09/14/16 Time: 830 AM Prednisone (Prednisone) 5 MG TABLET 1 Tablet ORAL DAILY Qty = 30 No Refills Instructions: PLEASE TAKE 2 TAB (10 MG) ON 09/15 AND 09/16 PLEASE TAKE 1 TAB 5 MG PO DAILY ONWARDS TILL YOU SEE YOUR PCP Comments: Last Taken: 09/14/16 Time: 830 AM Copies To: JOHNNIE MARK,CT Rodriguez; ALYSA LONGORIA,SCARLETT
[2016-09-13 14:40] VITALS: BP 113/48
--- NOTE | 2016-09-13 15:21 | Proc Note Cardiology ---
Cardiology Procedure Procedure Date: 09/13/16 Cardiology Procedure(s): electrical cardioversion Pre-Operative Diagnosis: Atrial fibrillation Post-Operative Diagnosis: Converted to sinus rhythm Estimated Blood Loss: n/a Anesthesia: local monitored anesthesi Procedure Findings: The patient is a 76-year-old man with ischemic cardiomyopathy, biventricular defibrillator, recurrent atrial fibrillation. He recently had an attempted cardioversion about 2 weeks ago which was unsuccessful. Subsequently he was reloaded with amiodarone and now presents for repeat cardioversion. He was brought to the procedure room in the fasting state. Informed consent was obtained. Anterior posterior pads were applied. Appropriate sedation was provided by anesthesia. Once the patient was adequately sedated a 360 J synchronized biphasic shock was administered through the pads with immediate conversion to sinus rhythm. The patient will be monitored until awake and then returned to his floor on telemetry.
--- NOTE | 2016-09-13 15:27 | PN- Cardiology ---
Subjective Subjective: The patient was successfully cardioverted earlier this morning. He did convert immediately to sinus rhythm and this has been maintained. He already feels better. His defibrillator was interrogated after the cardioversion and is working properly. He has no complaints of chest pain or shortness of breath at this time. He remains on amiodarone and IV Lasix. Objective Vital Signs and I&Os Vital Signs Date Time Temp Pulse Resp B/P B/P Pulse O2 O2 Flow FiO2 Mean Ox Delivery Rate 09/13 1440 97.7 98 20 113/48 100 Nasal Cannula 09/13 1425 101 113/48 09/13 1115 73 130/50 09/13 1115 73 130/50 09/13 1115 73 130/50 09/13 1109 95 Nasal 3.0L Cannula 09/13 0706 97.9 96 20 118/60 96 Nasal Cannula 09/13 0644 96 118/70 09/13 0000 94 Nasal 3.0L Cannula 09/12 2226 98.4 93 20 124/68 97 Venti Mask 09/12 222 65 124/60 09/12 2223 65 124/68 09/12 2223 65 124/60 09/12 1935 93 Venti Mask 30% 09/12 1634 88 120/60 09/12 1600 Venti Mask Intake & Output 09/13 1600 09/13 0800 09/13 0000 09/12 1600 09/12 0800 09/12 0000 Intake Total 0 670 360 360 Output Total 600 1200 425 550 300 Balance -600 -530 -65 -190 -300 Intake, IV 20 Intake, Oral 0 650 360 360 Number 0 Bowel Movements Output, Urine 600 1200 425 550 300 Patient 189 lb Weight Weight Chair scale Measurement Method Physical Exam: He is in no distress HEENT exam is normal Chest reveals decreased breath sounds and a few rhonchi Heart reveals regular rhythm and no murmurs There is no edema Current Medications: Current Medications Sig/Clare Start time Last Medication Dose Route Stop Time Status Admin Acetaminophen 650 MG Q6P PRN 09/10 1115 AC PO Albuterol Sulfate 3 ML Q4P PRN 09/11 1945 AC 09/13 INH 1344 Amiodarone HCl 200 MG TID 09/10 1201 AC 09/13 PO 1115 Dextrose 25 GM ONCE ONE 09/13 0645 DC 09/13 IV 09/13 0646 0644 Diltiazem HCl 30 MG Q8 09/11 1400 AC 09/13 PO 1425 Fluticasone 2 PUF BID 09/13 1207 AC 09/13 Propionate INH 1423 Furosemide 40 MG BID 09/11 2200 AC 09/13 IV 1111 Insulin Aspart 0 TIDAC 09/13 1200 AC 09/13 SC 1130 Insulin Aspart 0 TIDAC/HS 09/10 2100 DC 09/12 SC 09/12 2358 1845 Insulin Detemir 10 UNITS DAILY 09/13 1000 AC 09/13 SC 1127 Insulin Detemir 10 UNITS BID 09/10 1201 DC 09/12 SC 2219 Insulin Human Regular 6 UNITS .STK-MED ONE 09/13 0051 DC IV 09/13 0052 Insulin Human Regular 0 Q6 09/12 2359 DC SC Ipratropium [place] 2.5 ML TID 09/11 2200 AC 09/13 INH 1345 Metoprolol Tartrate 12.5 MG BID 09/12 2200 AC 09/13 PO 1115 Prednisone 5 MG DAILY 09/17 1000 CAN PO 09/20 0959 Prednisone 10 MG DAILY 09/14 1000 CAN PO 09/17 0959 Prednisone 10 MG DAILY 09/14 1000 AC PO 09/16 1000 Prednisone 10 MG DAILY 09/13 1421 DC PO Prednisone 20 MG DAILY 09/13 1207 DC PO 09/14 1001 Prednisone 20 MG DAILY 09/11 1000 DC 09/13 PO 09/14 0959 1116 Rivaroxaban 15 MG DAILY 09/10 1159 AC 09/13 PO 1113 Sodium Chloride 1 SPRAY Q3 09/10 1200 AC 09/13 REGIS 1426 Tamsulosin HCl 0.4 MG DAILY 09/10 1200 AC 09/13 PO 1115 Tiotropium [place] 1 PUF DAILY 09/10 1200 AC 09/13 INH 1115 Results Last 48 Hrs of Labs/Mics: Laboratory Tests 09/13/16 0622: Anion Gap 11, Estimated GFR 39 L, BUN/Creatinine Ratio 37.6 H, Glucose 36 *L, CBC w Diff NO MAN DIFF REQ, RBC 3.86 L, MCV 81.8, MCH 25.9 L, RDW 19.6 H, MPV 8.2, Gran % 85.5 H, Lymphocytes % 8.0 L, Monocytes % 5.9, Eosinophils % 0.3, Basophils % 0.3, Absolute Granulocytes 16.9 H, Absolute Lymphocytes 1.6, Absolute Monocytes 1.2 H, Absolute Eosinophils 0.1, Absolute Basophils 0.1, PUBS MCHC 31.7 L 09/12/16 0636: CBC w Diff NO MAN DIFF REQ, RBC 3.59 L, MCV 81.8, MCH 26.3 L, RDW 19.8 H, MPV 8.1, Gran % 90.9 H, Lymphocytes % 4.5 L, Monocytes % 4.3, Eosinophils % 0.2, Basophils % 0.1, Absolute Granulocytes 17.2 H, Absolute Lymphocytes 0.8 L, Absolute Monocytes 0.8 H, Absolute Eosinophils 0, Absolute Basophils 0, PUBS MCHC 32.2 L Assessment/Plan Assessment/Plan The patient was successfully cardioverted earlier today. Hopefully this will hold. I recommend decreasing his amiodarone to 200 mg once daily, which is a maintenance dose, which we will send him home on. I recommend changing him to Lasix 40 mg twice daily orally which also will be his home dose. His other medication doses can stay the same. Assuming he does well overnight he probably can be discharged in the morning. Continue telemetry? Yes
[2016-09-13 22:15] VITALS: BP 114/56
[2016-09-14 06:40] VITALS: BP 110/70
--- NOTE | 2016-09-14 07:29 | PN- Housestaff ---
Subjective Follow-up For: -Acute hypoxic respiratory failure -CHF COPD exacerbation -A. fib with RVR Complaints: no complaints Tele-Events Since Last Visit: S-PACING - Subjective: I personally examined the patient at bedside, he was sitting comfortably in bed, in no acute distress, on nasal oxygen 4 L Review of Systems Constitutional: Denies: no symptoms. Cardiovascular: Denies: no symptoms. Respiratory: Denies: no symptoms. Objective Last 24 Hrs of Vital Signs/I&O Vital Signs Date Time Temp Pulse Resp B/P B/P Pulse O2 O2 Flow FiO2 Mean Ox Delivery Rate 09/14 1206 97 Nasal 2.0L Cannula 09/14 0850 95 Nasal 2.0L Cannula 09/14 0827 94 110/70 09/14 0640 99.5 94 18 110/70 97 Nasal 2.0L Cannula 09/14 0626 88 110/70 09/14 0000 95 Nasal 2.0L Cannula 09/13 2252 65 114/56 09/13 2252 65 114/56 09/13 2215 97.5 65 18 114/56 94 09/13 1915 96 Nasal 2.0L Cannula 09/13 1600 97 Nasal 2.0L Cannula 09/13 1440 97.7 98 20 113/48 100 Nasal Cannula 09/13 1425 101 113/48 Intake & Output 09/14 1600 09/14 0800 09/14 0000 Intake Total 200 370 Output Total 325 950 750 Balance -325 -750 -380 Intake, IV 20 Intake, Oral 200 350 Output, Urine 325 950 750 Patient 188 lb Weight Weight Chair scale Measurement Method Physical Exam General Appearance: Alert, Oriented X3, Cooperative, No Acute Distress Skin: No Rashes, No Breakdown, No Significant Lesion Skin Temp/Moisture Exam: Warm/Dry HEENT: Atraumatic, PERRLA, EOMI, Mucous Membr. moist/pink Cardiovascular: Regular Rate, Normal S1, Normal S2, No Murmurs Lungs: Clear to Auscultation, Normal Air Movement Abdomen: Normal Bowel Sounds, Soft, No Tenderness Neurological: Normal Speech, Strength at 5/5 X4 Ext, Normal Tone, Sensation Intact, Cranial Nerves 3-12 NL Extremities: BILATERAL 2 + PITTING EDEMA IN BOTH LL Assessment/Plan Assessment: Patient is a 76-year-old gentleman with a past mental history significant for recurrent nosebleeds/epistaxis status post cauterization, atrial fibrillation on Xarelto, coronary artery disease (history of multiple stents), cardiomyopathy status post pacemaker/defibrillator, COPD (on 2 L of oxygen at bedtime), history of MRSA pneumonia in June 2016, and C. difficile colitis. Recently discharged from [facility] for acute respiratory failure 2/2 PNA and COPD exacerbation, paroxysmal A. fib with RVR and pulmonary edema. imaging on admission: EKG Results Afib with paced rhytym, rate 108, Qtc 601 CXR Results Normal cardiac size. Bilateral pleural effusions, right greater than left side are unchanged. Vascular congestion without interstitial edema. No change. Echo: Mild left ventricular concentric hypertrophy Moderate decrease in left ventricular systolic function ejection fraction 35% Inferior and posterior akinesis Pacemaker wire in the right ventricular cavity Mild left atrial dilatation Moderate thickening of the anterior mitral valve leaflet Mild thickening/calcification of the posterior mitral valve leaflet. Mild mitral regurgitation. Aortic valve not well visualized, grossly normal. Right ventricular systolic pressure estimated to be elevated at 55 mmHg. The inferior vena cava is moderately dilated. #HYPOXIA 2/2 COPD exacerbation and acute exacerbation of chronic CHF (most likely due to uncontrolled A. fib EF less than 35%) Bilateral chest pleural effusion, most likely due to CHF, no evidence of empyema. continue to monitor on telemetry floor CXR shows bilateral pulm effusion and vascular congestion IV lasix 40mg daily Dr Shell on board Continue his home meds #ELEVATED TROPONIN More likely his elevated trops on admission is 2/2 demand ischemia initial trop 0.11; repeat was 0.09, 0,07 EKG shows paced rhythm in afib; no obvious ST changes appreciated #COPD EXACERBATION He recieved a dose of IV solumedrol 125mg in the ambulance enroute DC IV solumedrol Start on prednisone taper 20 mg bedtime , continue on albuterol 1.25, continue ipratropium inhaler ATC QID Lasix PO BID Patient might need thoracocentesis if worsening TRC nebs Continue Spiriva Sputum culture # History of atrial fibrillation with RVR: -He had cardioversion today and converted to NSR. -Continue to Monitor on telemetry -Continue low dose of beta georgi 12.5mg BID -Continue amiodarone 200mg once daily -Continue Xarelto - EP will be consulted if he failos to maintian NSR # Acute on Chronic Heart failure with decreased ejection fraction: Elevated pro [id number] Continue IV lasix 40mg daily Echo:Mild left ventricular concentric hypertrophy,Moderate decrease in left ventricular systolic function ejection fraction 35%,Inferior and posterior akinesis,Pacemaker wire in the right ventricular cavity, Mild left atrial dilatation # Diabetes mellitus: -Yesterday night and this mornign the patient had multiple hypoglycemic attacks -His Levermir is reduced to 10 U once daily in the morning - His novolog schedule has been changed to TID and his bed time insulin was DC as per -Dr Costello recommendation. -Continue Accu-Checks -Diabetic diet -Dr. Last on board # Chronic kidney disease stage IIIB: His creatinine of 1.7 seems to be at baseline Will continue low dose Lasix because the last time it was held due to worsening creatinine, patient went into flash pulmonary edema Continue to monitor Daily BEP while on IV Lasix # Mild Hypokalemia Potassium today is 3.7 Will replete with potassium 40mg x 1 Will check magnesium Keep K+ >4 and Mag > 2 #QTC prolongation EKG on admission shows a QTc of 601; repeat is 577 Possibly due to amiodarone used in treating his afib Close monitoring of QTc due to high risk of ventricular arrythmias # Elevated White count trending down Possibly due to steroids; Hold antibiotics for now; was given a dose of antibiotics in the ED CXR does not show any PNA, no urinary symptoms or fever Sputum culture Blood cultures x 2 drawn Will check UA and Urine culture daily CBC Watch for fevers # Transaminitis follow up on liver functions The patient is stable for discharge today Full Code Mild Pain pathway DVT ppx with xarelto diat: heart healthy and consistent carbohydrate Problem List: 1. Prolonged Q-T interval on ECG 2. Hypokalemia 3. CKD (chronic kidney disease) 4. Pleural effusion 5. Pulmonary edema 6. CAD (coronary artery disease) 7. IDDM (insulin dependent diabetes mellitus) 8. Gout 9. Acute diastolic CHF (congestive heart failure) Pain Ratin Pain Location: N/A Pain Goal: Remain pain free Pain Plan: Tylenol Oxycodone Tomorrow's Labs & Rationales: N/A DVT/Prophylaxis: pharmacological Consulting Request: Consulting Specialty: Endocrinology
--- NOTE | 2016-09-14 07:49 | PN- Diabetes ---
Assessment/Plan Assessment: Patient was cardioverted yesterday. Patient's prednisone is down to 10 mg once a day. He may go home today. He feels improved. His blood sugar is 92 this morning. His sugars were somewhat low yesterday. Plan: Suggest stop the patient's Levemir. Change his sliding scale NovoLog before meals to be less than 150 give no insulin, 151-200 give 3 units NovoLog, 201-250 give 4 units NovoLog, 251-300 give 5 units NovoLog, 301-350 give 6 units NovoLog , 351-400 give 7 units NovoLog. If the patient goes home I would recommend that we leave him off insulin and he can resume his metformin which he has at home. He will monitor his sugars. If they begin to become elevated he will call the office. Subjective Subjective: Feels improved Review of Systems Constitutional: Denies: chills, fever. Cardiovascular: Denies: chest pain. Respiratory: Denies: cough, short of breath. Gastrointestinal: Denies: nausea, vomiting. Skin: Reports: no symptoms. Objective Last 24 Hrs of Vital Signs/I&O Vital Signs Date Time Temp Pulse Resp B/P B/P Pulse O2 O2 Flow FiO2 Mean Ox Delivery Rate 09/14 0640 99.5 94 18 110/70 97 Nasal 2.0L Cannula 09/14 0626 88 110/70 09/14 0000 95 Nasal 2.0L Cannula 09/13 2252 65 114/56 09/13 2252 65 114/56 09/13 2215 97.5 65 18 114/56 94 09/13 1915 96 Nasal 2.0L Cannula 09/13 1600 97 Nasal 2.0L Cannula 09/13 1440 97.7 98 20 113/48 100 Nasal Cannula 09/13 1425 101 113/48 09/13 1115 73 130/50 09/13 1115 73 130/50 09/13 1115 73 130/50 09/13 1109 95 Nasal 3.0L Cannula 09/13 0800 96 Nasal 3.0L Cannula Intake & Output 09/14 0800 09/14 0000 09/13 1600 Intake Total 200 370 605 Output Total 950 750 900 Balance -750 -380 -295 Intake, IV 20 125 Intake, Oral 200 350 480 Number 0 Bowel Movements Output, Urine 950 750 900 Vital Signs Date Time Temp Pulse Resp B/P B/P Pulse O2 O2 Flow FiO2 Mean Ox Delivery Rate 09/14 0640 99.5 94 18 110/70 97 Nasal 2.0L Cannula 09/14 0626 88 110/70 09/14 0000 95 Nasal 2.0L Cannula 09/13 2252 65 114/56 09/13 2252 65 114/56 09/13 2215 97.5 65 18 114/56 94 09/13 1915 96 Nasal 2.0L Cannula 09/13 1600 97 Nasal 2.0L Cannula 09/13 1440 97.7 98 20 113/48 100 Nasal Cannula 09/13 1425 101 113/48 09/13 1115 73 130/50 09/13 1115 73 130/50 09/13 1115 73 130/50 09/13 1109 95 Nasal 3.0L Cannula 09/13 0800 96 Nasal 3.0L Cannula Intake & Output 09/14 0800 09/14 0000 09/13 1600 Intake Total 200 370 605 Output Total 950 750 900 Balance -750 -380 -295 Intake, IV 20 125 Intake, Oral 200 350 480 Number 0 Bowel Movements Output, Urine 950 750 900 Physical Exam General Appearance: alert, awake, comfortable Head: normal appearance Respiratory: decreased breath sounds, wheezing Cardiovascular: regular rate/rhythm Abdomen: normal bowel sounds Extremities: normal inspection Current Medications: Current Medications Sig/Clare Start time Last Medication Dose Route Stop Time Status Admin Acetaminophen 650 MG Q6P PRN 09/10 1115 AC PO Albuterol Sulfate 3 ML Q4P PRN 09/11 1945 AC 09/13 INH 1344 Amiodarone HCl 200 MG DAILY 09/14 1000 AC PO Amiodarone HCl 200 MG TID 09/10 1201 DC 09/13 PO 1115 Diltiazem HCl 30 MG Q8 09/11 1400 AC 09/14 PO 0626 Fluticasone 2 PUF BID 09/13 1207 AC 09/13 Propionate INH 2252 Furosemide 40 MG BID 09/13 2200 AC 09/13 PO 2252 Furosemide 40 MG BID 09/11 2200 DC 09/13 IV 1111 Insulin Aspart 0 TIDAC 09/13 1200 AC 09/13 SC 1130 Insulin Detemir 10 UNITS DAILY 09/13 1000 AC 09/13 SC 1127 Insulin Detemir 10 UNITS BID 09/10 1201 DC 09/12 SC 2219 Insulin Human Regular 0 Q6 09/12 2359 DC SC Ipratropium [place] 2.5 ML TID 09/11 2200 AC 09/13 INH 1915 Metoprolol Tartrate 12.5 MG BID 09/12 2200 AC 09/13 PO 2252 Prednisone 5 MG DAILY 09/17 1000 CAN PO 09/20 0959 Prednisone 10 MG DAILY 09/14 1000 CAN PO 09/17 0959 Prednisone 10 MG DAILY 09/14 1000 AC PO 09/16 1000 Prednisone 10 MG DAILY 09/13 1421 DC PO Prednisone 20 MG DAILY 09/13 1207 DC PO 09/14 1001 Prednisone 20 MG DAILY 09/11 1000 DC 09/13 PO 09/14 0959 1116 Rivaroxaban 15 MG DAILY 09/10 1159 AC 09/13 PO 1113 Sodium Chloride 1 SPRAY Q3 09/10 1200 AC 09/14 REGIS 0626 Tamsulosin HCl 0.4 MG DAILY 09/10 1200 AC 09/13 PO 1115 Tiotropium [place] 1 PUF DAILY 09/10 1200 AC 09/13 INH 1115
[2016-09-14 08:27] VITALS: BP 110/70
[2016-09-14] MEDS ORDERED: AMIODARONE HCL200 M1 PO (11:11)
--- NOTE | 2016-09-14 11:11 | PN- Att Addend ---
Attending Addendum Attending Brief Note Patient feeling better sitting in the chair, was a little congested this morning but felt better after breathing treatment. Vital signs are stable. Cardioversion worked this time. Be able to go home today. To follow with Dr. Ramirez and myself follow endocrine instructions by Dr. Rios patient will be off insulin and on oral medications. Monitor his blood sugars at home. See the CMR. Vital Signs Date Time Temp Pulse Resp B/P B/P Pulse O2 O2 Flow FiO2 Mean Ox Delivery Rate 09/14 0850 95 Nasal 2.0L Cannula 09/14 0827 94 110/70 09/14 0640 99.5 94 18 110/70 97 Nasal 2.0L Cannula 09/14 0626 88 110/70 09/14 0000 95 Nasal 2.0L Cannula 09/13 2252 65 114/56 09/13 2252 65 114/56 09/13 2215 97.5 65 18 114/56 94 09/13 1915 96 Nasal 2.0L Cannula 09/13 1600 97 Nasal 2.0L Cannula 09/13 1440 97.7 98 20 113/48 100 Nasal Cannula 09/13 1425 101 113/48 09/13 1115 73 130/50 09/13 1115 73 130/50 09/13 1115 73 130/50 Intake & Output 09/14 1600 09/14 0400 09/13 1600 09/13 0400 09/12 1600 09/12 0400 Intake Total 200 370 605 670 720 Output Total 0669 562 6591 1200 975 300 Balance -1075 -380 -895 -530 -255 -300 Intake, IV 20 125 20 Intake, Oral 200 350 480 650 720 Number 0 0 Bowel Movements Output, Urine 8305 168 1319 1200 975 300 Patient 188 lb 189 lb Weight Weight Chair scale Chair scale Measurement Method Current Medications Sig/Clare Start time Last Medication Dose Route Stop Time Status Admin Acetaminophen 650 MG Q6P PRN 09/10 1115 AC PO Albuterol Sulfate 3 ML Q4P PRN 09/11 1945 AC 09/13 INH 1344 Amiodarone HCl 200 MG DAILY 09/14 1000 AC 09/14 PO 0827 Amiodarone HCl 200 MG TID 09/10 1201 DC 09/13 PO 1115 Diltiazem HCl 30 MG Q8 09/11 1400 AC 09/14 PO 0626 Fluticasone 2 PUF BID 09/13 1207 AC 09/14 Propionate INH 0828 Furosemide 40 MG BID 09/13 2200 AC 09/14 PO 0829 Furosemide 40 MG BID 09/11 2200 DC 09/13 IV 1111 Insulin Aspart 0 TIDAC 09/13 1200 AC 09/13 SC 1130 Insulin Detemir 10 UNITS DAILY 09/13 1000 DC 09/13 SC 1127 Ipratropium [place] 2.5 ML TID 09/11 2200 AC 09/14 INH 0839 Metoprolol Tartrate 12.5 MG BID 09/12 2200 AC 09/14 PO 0829 Prednisone 5 MG DAILY 09/17 1000 CAN PO 09/20 0959 Prednisone 10 MG DAILY 09/14 1000 CAN PO 09/17 0959 Prednisone 10 MG DAILY 09/14 1000 AC 09/14 PO 09/16 1000 0829 Prednisone 10 MG DAILY 09/13 1421 DC PO Prednisone 20 MG DAILY 09/13 1207 DC PO 09/14 1001 Prednisone 20 MG DAILY 09/11 1000 DC 09/13 PO 09/14 0959 1116 Rivaroxaban 15 MG DAILY 09/10 1159 AC 09/14 PO 0831 Sodium Chloride 1 SPRAY Q3 09/10 1200 AC 09/14 REGIS 0826 Tamsulosin HCl 0.4 MG DAILY 09/10 1200 AC 09/14 PO 0827 Tiotropium [place] 1 PUF DAILY 09/10 1200 AC 09/14 INH 0830 Laboratory Tests 09/13/16 0622: Anion Gap 11, Estimated GFR 39 L, BUN/Creatinine Ratio 37.6 H, Glucose 36 *L, CBC w Diff NO MAN DIFF REQ, RBC 3.86 L, MCV 81.8, MCH 25.9 L, RDW 19.6 H, MPV 8.2, Gran % 85.5 H, Lymphocytes % 8.0 L, Monocytes % 5.9, Eosinophils % 0.3, Basophils % 0.3, Absolute Granulocytes 16.9 H, Absolute Lymphocytes 1.6, Absolute Monocytes 1.2 H, Absolute Eosinophils 0.1, Absolute Basophils 0.1, PUBS MCHC 31.7 L 09/12/16 0636: CBC w Diff NO MAN DIFF REQ, RBC 3.59 L, MCV 81.8, MCH 26.3 L, RDW 19.8 H, MPV 8.1, Gran % 90.9 H, Lymphocytes % 4.5 L, Monocytes % 4.3, Eosinophils % 0.2, Basophils % 0.1, Absolute Granulocytes 17.2 H, Absolute Lymphocytes 0.8 L, Absolute Monocytes 0.8 H, Absolute Eosinophils 0, Absolute Basophils 0, PUBS MCHC 32.2 L
[2016-09-14] MEDS ORDERED: METOPROLOL SUCC25 M1 PO (11:14)
[2016-09-14] MEDS ORDERED: DILTIAZEM HCL30 M1 PO (11:17)
[2016-09-14] MEDS ORDERED: PREDNISONE5 M1 PO (11:23)
[2016-09-14] MEDS ORDERED: LASIX40 M1 PO (11:23)
--- NOTE | 2016-09-14 11:51 | PN- Cardiology ---
Subjective Subjective: The patient is feeling well today. He was a little short of breath earlier but had a respiratory treatment and is feeling better. He has no chest pain or palpitations. He appears to be back in atrial fibrillation on the monitor which was confirmed by an electrocardiogram. However his rate is in the normal range of 70s to 80s. He is 100% paced in the biventricular mode. He is currently on Lopressor, Cardizem, amiodarone, Xarelto, Lasix from a cardiac standpoint. Objective Vital Signs and I&Os Vital Signs Date Time Temp Pulse Resp B/P B/P Pulse O2 O2 Flow FiO2 Mean Ox Delivery Rate 09/14 0850 95 Nasal 2.0L Cannula 09/14 0827 94 110/70 09/14 0640 99.5 94 18 110/70 97 Nasal 2.0L Cannula 09/14 0626 88 110/70 09/14 0000 95 Nasal 2.0L Cannula 09/13 2252 65 114/56 09/13 2252 65 114/56 09/13 2215 97.5 65 18 114/56 94 09/13 1915 96 Nasal 2.0L Cannula 09/13 1600 97 Nasal 2.0L Cannula 09/13 1440 97.7 98 20 113/48 100 Nasal Cannula 09/13 1425 101 113/48 Intake & Output 09/14 1600 09/14 0800 09/14 0000 09/13 1600 09/13 0800 09/13 0000 Intake Total 200 370 605 0 670 Output Total 325 950 750 439 728 2538 Balance -325 -750 -380 -295 -600 -530 Intake, IV 20 125 20 Intake, Oral 200 350 480 0 650 Number 0 Bowel Movements Output, Urine 325 950 750 409 311 1061 Patient 188 lb Weight Weight Chair scale Measurement Method Physical Exam: He is in no distress Chest reveals mild to moderate expiratory wheezing Heart slightly irregular rhythm no murmurs No peripheral edema Current Medications: Current Medications Sig/Clare Start time Last Medication Dose Route Stop Time Status Admin Acetaminophen 650 MG Q6P PRN 09/10 1115 AC PO Albuterol Sulfate 3 ML Q4P PRN 09/11 1945 AC 09/13 INH 1344 Amiodarone HCl 200 MG DAILY 09/14 1000 AC 09/14 PO 0827 Amiodarone HCl 200 MG TID 09/10 1201 DC 09/13 PO 1115 Diltiazem HCl 30 MG Q8 09/11 1400 AC 09/14 PO 0626 Fluticasone 2 PUF BID 09/13 1207 AC 09/14 Propionate INH 0828 Furosemide 40 MG BID 09/13 2200 AC 09/14 PO 0829 Furosemide 40 MG BID 09/11 2200 DC 09/13 IV 1111 Insulin Aspart 0 TIDAC 09/13 1200 AC 09/13 SC 1130 Insulin Detemir 10 UNITS DAILY 09/13 1000 DC 09/13 SC 1127 Ipratropium [place] 2.5 ML TID 09/11 2200 AC 09/14 INH 0839 Metoprolol Tartrate 12.5 MG BID 09/12 2200 AC 09/14 PO 0829 Prednisone 5 MG DAILY 09/17 1000 CAN PO 09/20 0959 Prednisone 10 MG DAILY 09/14 1000 CAN PO 09/17 0959 Prednisone 10 MG DAILY 09/14 1000 AC 09/14 PO 09/16 1000 0829 Prednisone 10 MG DAILY 09/13 1421 DC PO Prednisone 20 MG DAILY 09/13 1207 DC PO 09/14 1001 Prednisone 20 MG DAILY 09/11 1000 DC 09/13 PO 09/14 0959 1116 Rivaroxaban 15 MG DAILY 09/10 1159 AC 09/14 PO 0831 Sodium Chloride 1 SPRAY Q3 09/10 1200 AC 09/14 REGIS 0826 Tamsulosin HCl 0.4 MG DAILY 09/10 1200 AC 09/14 PO 0827 Tiotropium [place] 1 PUF DAILY 09/10 1200 AC 09/14 INH 0830 Results Last 48 Hrs of Labs/Mics: Laboratory Tests 09/13/16 0622: Anion Gap 11, Estimated GFR 39 L, BUN/Creatinine Ratio 37.6 H, Glucose 36 *L, CBC w Diff NO MAN DIFF REQ, RBC 3.86 L, MCV 81.8, MCH 25.9 L, RDW 19.6 H, MPV 8.2, Gran % 85.5 H, Lymphocytes % 8.0 L, Monocytes % 5.9, Eosinophils % 0.3, Basophils % 0.3, Absolute Granulocytes 16.9 H, Absolute Lymphocytes 1.6, Absolute Monocytes 1.2 H, Absolute Eosinophils 0.1, Absolute Basophils 0.1, PUBS MCHC 31.7 L Assessment/Plan Assessment/Plan The patient was successfully cardioverted yesterday. However, he appears to be back in atrial fibrillation, albeit with a controlled rate at this time. I think he is stable enough to be discharged on his current regimen. 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 Fernando Jordan and myself and Dr. Shell and Dr. Delatorre. Continue telemetry? Not applicable
--- NOTE | 2016-09-14 13:20 | PN- Pulmonary ---
Subjective HPI/Critical Care Issues: The patient is feeling well today. He was a little short of breath earlier but had a respiratory treatment and is feeling better. He has no chest pain or palpitations. He appears to be back in atrial fibrillation on the monitor which was confirmed by an electrocardiogram. However his rate is in the normal range of 70s to 80s. He is 100% paced in the biventricular mode. He is currently on Lopressor, Cardizem, amiodarone, Xarelto, Lasix from a cardiac standpoi Objective Current Medications: Current Medications Sig/Clare Start time Last Medication Dose Route Stop Time Status Admin Acetaminophen 650 MG Q6P PRN 09/10 1115 AC PO Albuterol Sulfate 3 ML Q4P PRN 09/11 1945 AC 09/13 INH 1344 Amiodarone HCl 200 MG DAILY 09/14 1000 AC 09/14 PO 0827 Amiodarone HCl 200 MG TID 09/10 1201 DC 09/13 PO 1115 Diltiazem HCl 30 MG Q8 09/11 1400 AC 09/14 PO 0626 Fluticasone 2 PUF BID 09/13 1207 AC 09/14 Propionate INH 0828 Furosemide 40 MG BID 09/13 2200 AC 09/14 PO 0829 Furosemide 40 MG BID 09/11 2200 DC 09/13 IV 1111 Insulin Aspart 0 TIDAC 09/13 1200 AC 09/13 SC 1130 Insulin Detemir 10 UNITS DAILY 09/13 1000 DC 09/13 SC 1127 Ipratropium [place] 2.5 ML TID 09/11 2200 AC 09/14 INH 0839 Metoprolol Tartrate 12.5 MG BID 09/12 2200 AC 09/14 PO 0829 Prednisone 10 MG DAILY 09/14 1000 AC 09/14 PO 09/16 1000 0829 Prednisone 10 MG DAILY 09/13 1421 DC PO Prednisone 20 MG DAILY 09/13 1207 DC PO 09/14 1001 Prednisone 20 MG DAILY 09/11 1000 DC 09/13 PO 09/14 0959 1116 Rivaroxaban 15 MG DAILY 09/10 1159 AC 09/14 PO 0831 Sodium Chloride 1 SPRAY Q3 09/10 1200 AC 09/14 REGIS 0826 Tamsulosin HCl 0.4 MG DAILY 09/10 1200 AC 09/14 PO 0827 Tiotropium [place] 1 PUF DAILY 09/10 1200 AC 09/14 INH 0830 Vital Signs & I&O Last 24 Hrs of Vitals and I&O: Vital Signs Date Time Temp Pulse Resp B/P B/P Pulse O2 O2 Flow FiO2 Mean Ox Delivery Rate 09/14 1206 97 Nasal 2.0L Cannula 09/14 0850 95 Nasal 2.0L Cannula 09/14 0827 94 110/70 09/14 0640 99.5 94 18 110/70 97 Nasal 2.0L Cannula 09/14 0626 88 110/70 09/14 0000 95 Nasal 2.0L Cannula 09/13 2252 65 114/56 09/13 2252 65 114/56 09/13 2215 97.5 65 18 114/56 94 09/13 1915 96 Nasal 2.0L Cannula 09/13 1600 97 Nasal 2.0L Cannula 09/13 1440 97.7 98 20 113/48 100 Nasal Cannula 09/13 1425 101 113/48 Intake & Output 09/14 1600 09/14 0800 09/14 0000 Intake Total 200 370 Output Total 325 950 750 Balance -325 -750 -380 Intake, IV 20 Intake, Oral 200 350 Output, Urine 325 950 750 Patient 188 lb Weight Weight Chair scale Measurement Method Impression/Plan Impression/Plan Impression/Plan: Physical Exam General Appearance Alert, Oriented X3, Cooperative, No Acute Distress Skin No Significant Lesion HEENT Atraumatic, PERRLA, Mucous Membr. moist/pink Neck Supple, No JVD Cardiovascular irregularly Irregular HR Lungs Wheezing throughout, bibasilar crackles Abdomen Normal Bowel Sounds, Soft, No Tenderness Extremities 1+ pedal edema bilaterally cxr IMPRESSION: Normal cardiac size. Bilateral pleural effusions, right greater than left side are unchanged. Vascular congestion without interstitial edema. No change. IMPRESSION This is a gentleman with paroxysmal atrial fibrillation on xeralto, significant COPD, biventricular pacer for a previous wide-complex rhythm, previous coronary artery disease, significant pulmonary hypertension, mitral regurgitation, diabetes, previous gout and osteoarthritis, currently on 24-hour oxygen with 40- pack-year smoking history who has quit smoking few yrs ago now here * REsolved Acute flash Pulm Edema due to tachy response in a pt with persistant afib now s/p failed electrical and chemical cardioversion * PT with severe copd with worsening due to acute pulmonary edema with rapid atrial fibrillation with acute diastolic heart failure with recent intubation from acute diastolic heart failure. * Effusion due to chf no evidence of empyema etc * No clinical evidence suggestive of active bacterial infection in the lung and patient recently did have significant C. difficile colitis * Significant COPD WIth wheezing * Recent Cdiff colitis now status post antibiotic therapy no diarrhea * Recent bilateral epistaxis with nasal packing, was on abx for this, now better. PT continues to have sig anemia * Sig COPD with a right middle lobe bronchiectasis from his previous pneumonia with MRSA colonization. * Paroxysmal atrial fibrillation with anticoagulation before, now on amiodarone with biventricular pacer. Pt failed electrical cardioversion on 08/31, now with sig tacy episode on excertion, pending electrical cardioversion * Recent bronchiolitis with Previous small lung nodules * Chronic kidney disease with atrophic kidney. * Hypertension, gout, previous high blood sugar, previous gout. * Mild aortic aneurysm * BPH on Flomax REC Po prednisone 20 and taper to 5 mg standing dose NEbs with ipratropium atc qid, do not use albuterol neb unless pt is wheezing ( use 1.25 mg instead of 2.5 mg) start flovent 220 mcg 2 puff bid Lasix prn Saline nasal spray Cont dilt and can increase the dose if xiang Will follow as out pt He can resume his out pt inhalers upon dc
--- NOTE | 2016-09-14 19:48 | Discharge Summary ---
Visit Information Visit Dates Admission Date: 09/10/16 Discharge Date: 09/14/16 Hospital Course Course Attending Physician: SCARLETT WATT MD Primary Care Physician: SCARLETT WATT MD Consulting Request: Consulting Specialty: Endocrinology (cardiology and pulmonary) Consulting Physician: Saul Vazquez and Dr. Shell Reason for Consult: shortness of breath rapid atrial fibrillation and uncontrolled diabetes Hospital Course: 76-year-old white male with many comorbidities had gone home recently was doing reasonably well until late the night before this admission when again became very short of breath again went into rapid atrial fibrillation and ingestive heart failure came to the ER after IV diuresis and medications the patient improved. Was decided by cardiology the patient needed another cardioversion which was done on the did well during the day, was a little congested but after respiratory treatments improved on the he had an EKG before starting discharge plans. Maybe again in atrial fibrillation but the ventricular rate is slow with all the medications is on. Patient was discharged to be followed by cardiology pulmonary and myself also by endocrine stated that his blood sugars have been low enough to stop the insulin. See the CMR for all the medications Allergies: Coded Allergies: NO KNOWN ALLERGIES (UNKNOWN 08/10/16) Significant Procedures: SERVICE DATE: 09/10/16 EXAM TYPE: RAD - XRY-PORTABLE CHEST XRAY EXAMINATION: XR PORTABLE CHEST CLINICAL INFORMATION: Hypoxia COMPARISON: 09/06/2016 TECHNIQUE: Portable 85 degrees upright view of the chest was obtained. FINDINGS: Bilateral small to moderate right and small left-sided pleural effusions are unchanged. Associated patchy bibasilar opacities. No evidence of pneumothorax. Mild vascular congestion without interstitial edema. Dual-lead ICD is identified. The cardiac silhouette is not enlarged. IMPRESSION: Normal cardiac size. Bilateral pleural effusions, right greater than left side are unchanged. Vascular congestion without interstitial edema. No change. SERVICE DATE: 09/12/16- EXAM TYPE: US - US-EXT BILAT VENOUS DOPPLER EXAMINATION: US TRIPLEX OF LOWER EXTREMITIES, BILATERAL CLINICAL INFORMATION: Bilateral lower extremity pain. Edema. COMPARISON: None TECHNIQUE: Color-flow triplex imaging with spectral analysis and compression Doppler were performed on the lower extremities. FINDINGS: Respiratory variation and normal compression are noted throughout the lower extremities. The visualized common femoral vein, superficial femoral vein, profunda femoral vein, popliteal vein and midcalf peroneal and posterior tibial venous segments show no evidence of deep venous thrombosis. There is no Mcgill's cyst. IMPRESSION: Normal triplex scan without evidence of deep venous thrombosis involving the lower extremities. SERVICE DATE: 09/12/16 EXAM TYPE: RAD - XRY-PORTABLE CHEST XRAY EXAMINATION: XR PORTABLE CHEST CLINICAL INFORMATION: Shortness of breath. Pulmonary edema. COMPARISON: Chest x-ray 09/10/2016. TECHNIQUE: Portable 75 degrees semierect view of the chest was obtained. FINDINGS: There has been no interval change in the left chest AICD/pacemaker generator with multiple leads. The right lung is hypoexpanded compared to the left, with a right pleural effusion and likely atelectasis/consolidation at the right base, similar compared to the prior study. There may be trace left pleural effusion. The cardiac silhouette is at the upper limits of normal. The aortic arch is calcified and unfolded. Mild prominence of the central pulmonary vasculature is noted, without evidence of overt interstitial edema. There are no acute osseous findings. IMPRESSION: 1. The study redemonstrates right greater than left pleural effusions. 2. There is atelectasis/consolidation at the right base, unchanged. 3. There is mild central pulmonary vascular prominence without interstitial edema. SERVICE DATE: 09/10/16 EXAM TYPE: CARD - ECHOCARDIOGRAM SONDRA CANO Age: 76 : 1940 Gender: M Exam Date: 09/10/2016 11:35 Exam Location: ER Ht (in): 69 Wt (lb): 184 BSA: 2.03 BP: 130 / 96 Ordering Physician: CHRISTIAN HINOJOSA MD Referring Physician: CHRISTIAN HINOJOSA MD Technologist: Abhijit Grayson [facility] Room Number: 3 Indications: MYOCARDIAL ISCHEMIA/OH Rhythm: Atrial fibrillation Technical Quality: Fair FINDINGS Left Ventricle Left ventricular cavity size at the upper limits of normal. Mild concentric left ventricular hypertrophy. There is inferior and posterior akinesis. Left ventricular systolic function is moderately decreased. Visually estimated ejection fraction is 35% Right Ventricle Normal right ventricular size and function. Catheter/pacemaker wire in the right ventricular cavity. Right Atrium Normal right atrial size. Catheter/pacemaker wire in the right atrial appendage. Left Atrium Mild left atrial dilatation. Mitral Valve Moderate thickening/calcification of the anterior mitral valve leaflet. Mild thickening/calcification of the posterior mitral valve leaflet. Mild mitral regurgitation. Aortic Valve Aortic valve not well visualized, grossly normal. No aortic stenosis. No aortic regurgitation. Tricuspid Valve Structurally normal tricuspid valve. Trace to mild tricuspid regurgitation. Right ventricular systolic pressure estimated to be elevated at 55 mmHg. Pulmonic Valve Pulmonic valve not well visualized. No pulmonic regurgitation. Pericardium No pericardial or pleural effusion. Great Vessels Normal size aortic root. The inferior vena cava is moderately dilated. CONCLUSIONS Left ventricular cavity size at the upper limits of normal. Mild concentric left ventricular hypertrophy. There is inferior and posterior akinesis. Left ventricular systolic function is moderately decreased. Visually estimated ejection fraction is 35%. Catheter/pacemaker wire in the right ventricular cavity. Catheter/pacemaker wire in the right atrial appendage. Mild left atrial dilatation. Moderate thickening/calcification of the anterior mitral valve leaflet. Mild thickening/calcification of the posterior mitral valve leaflet. Mild mitral regurgitation. Aortic valve not well visualized, grossly normal. Right ventricular systolic pressure estimated to be elevated at 55 mmHg. The inferior vena cava is moderately dilated. Patient also had a cardioversion. Pertinent Lab Results: 09/11/16 0749: Anion Gap 10, Estimated GFR 39 L, BUN/Creatinine Ratio 31.2 H, Total Bilirubin 0.2, Direct Bilirubin 0.1, AST 37, ALT 105 H, Alkaline Phosphatase 166 H, Total Protein 5.1 L, Albumin 2.9 L, Triglycerides 114, Cholesterol 136, LDL Cholesterol, Calc 50 L, HDL Cholesterol 64 H, Cholesterol/HDL Ratio 2, CBC w Diff NO MAN DIFF REQ, RBC 3.66 L, MCV 81.2, MCH 26.3 L, RDW 19.1 H, MPV 7.8, Gran % 90.6 H, Lymphocytes % 4.5 L, Monocytes % 4.9, Eosinophils % 0, Basophils % 0 L, Absolute Granulocytes 12.1 H, Absolute Lymphocytes 0.6 L, Absolute Monocytes 0.7 H, Absolute Eosinophils 0, Absolute Basophils 0, PUBS MCHC 32.4 L 09/10/16 1820: Troponin I 0.07 09/10/16 1530: Urine Color YEL, Urine Clarity CLEAR, Urine pH 6.0, Ur Specific [place] 1.010, Urine Protein 30 H, Urine Ketones NEG, Urine Nitrite NEG, Urine Bilirubin NEG, Urine Urobilinogen 0.2, Ur Leukocyte Esterase NEG, Ur Microscopic SEDIMENT EXAMINED, Urine RBC RARE, Urine WBC RARE, Ur Epithelial Cells RARE, Urine Hemoglobin NEG, Urine Glucose NEG 09/10/16 1204: Troponin I 0.09 09/10/16 0654: Anion Gap 7, Estimated GFR 42 L, BUN/Creatinine Ratio 29.4 H, Glucose 64 L, Calcium 7.9 L, Magnesium 2.0, Total Bilirubin 0.4, AST 176 H, ALT 128 H, Alkaline Phosphatase 200 H, Lactate Dehydrogenase 1083 H, Troponin I 0.11 *H, Kjl-I-Jdjhdvwaoqi Pept 76169 H, Total Protein 5.4 L, Albumin 3.0 L, Globulin 2.4, Albumin/Globulin Ratio 1.3, CBC w Diff MAN DIFF ORDERED, RBC 3.80 L, MCV 82.2, MCH 26.2 L, RDW 19.5 H, MPV 7.2 L, Gran % 86.0 H, Lymphocytes % 8.7 L , Monocytes % 4.6, Eosinophils % 0.7, Basophils % 0 L, Absolute Granulocytes 13.3 H, Segmented Neutrophils 81 H, Absolute Lymphocytes 1.3, Lymphocytes 8 L , Monocytes 9, Absolute Monocytes 0.7 H, Eosinophils 2, Absolute Eosinophils 0.1, Absolute Basophils 0, Platelet Estimate ADEQUATE, Polychromasia 1+, Hypochromic-Microcytic 1+, Poikilocytosis 1+, Ovalocytes 1+, Elliptocytes FEW, PUBS MCHC 31.9 L, Fld Total RBCs Counted 100 09/13/16 0622: Anion Gap 11, Estimated GFR 39 L, BUN/Creatinine Ratio 37.6 H, Glucose 36 *L, CBC w Diff NO MAN DIFF REQ, RBC 3.86 L, MCV 81.8, MCH 25.9 L, RDW 19.6 H, MPV 8.2, Gran % 85.5 H, Lymphocytes % 8.0 L, Monocytes % 5.9, Eosinophils % 0.3, Basophils % 0.3, Absolute Granulocytes 16.9 H, Absolute Lymphocytes 1.6, Absolute Monocytes 1.2 H, Absolute Eosinophils 0.1, Absolute Basophils 0.1, PUBS MCHC 31.7 L 09/12/16 0636: CBC w Diff NO MAN DIFF REQ, RBC 3.59 L, MCV 81.8, MCH 26.3 L, RDW 19.8 H, MPV 8.1, Gran % 90.9 H, Lymphocytes % 4.5 L, Monocytes % 4.3, Eosinophils % 0.2, Basophils % 0.1, Absolute Granulocytes 17.2 H, Absolute Lymphocytes 0.8 L, Absolute Monocytes 0.8 H, Absolute Eosinophils 0, Absolute Basophils 0, PUBS MCHC 32.2 L Disposition Summary Disposition Principal Diagnosis: Rapid atrial fibrillation Congestive heart failure Additional Diagnosis: Cardiomyopathy Coronary artery disease Diabetes mellitus 2 COPD Discharge Disposition: home health services Discharge Instructions General Discharge Information Code Status: Full Code Patient's Diet: Diabetic and healthy heart Patient's Activity: Self-limited Follow-Up Instructions/Appts: Follow-up with Drs. Juan Ramon Shell MD and Frank Last MD Medications at Discharge Discharge Medications: Stop taking the following medications: Insulin Aspart, Recombinant (Novolog Flexpen) 100 UNIT/ML INSULN.PEN Inject into fatty tissue As Directed Qty = 1 Amiodarone HCl (Amiodarone HCl) 200 MG TABLET ORAL THREE TIMES DAILY Qty = 90 Insulin Glargine,Hum.rec.anlog (Lantus Solostar) 100 UNIT/ML (3 ML) INSULN.PEN Inject into fatty tissue TWICE DAILY Qty = 1 Continue taking these medications: Multivit-Min/FA/Lycopen/Lutein (Centrum Silver Tablet) 0.4 MG-300 MCG-250 MCG TABLET 1 Tablet ORAL DAILY Comments: NOT GIVEN IN HOSPITAL Fluticasone/Vilanterol (Breo Ellipta 100-25 Mcg INH) 100 MCG-25 MCG/DOSE BLST.W.DEV 1 PUFF Inhale through mouth DAILY Comments: NOT GIVEN IN HOSPITAL Tamsulosin HCl (Flomax) 0.4 MG CAP.ER.24H 1 Capsule ORAL DAILY Comments: Last Taken: 09/14/16 Time: 830 AM Allopurinol (Allopurinol) 300 MG TABLET 1 Tablet ORAL DAILY Comments: NOT GIVEN IN HOSPITAL Albuterol Sulfate (Ventolin Hfa) 18 GM HFA.AER.AD 2 Puff Inhale through mouth EVERY SIX HOURS NEEDED as needed for SHORTNESS OF BREATH Days = 30 Comments: NOT GIVEN IN HOSPITAL Tiotropium [place] (Spiriva) 18 MCG CAP.W.DEV 1 Capsule Inhale through mouth DAILY Qty = 30 Comments: Last Taken: 09/14/16 Time: 830 AM Pravastatin Sodium (Pravastatin Sodium) 80 MG TABLET 1 Tablet ORAL DAILY Comments: NOT GIVEN Vitamin B Complex (B Complex) 1 EACH TABLET 1 Tablet ORAL DAILY Comments: NOT GIVEN IN HOSPITAL Magnesium Oxide (Magnesium Oxide) 400 MG TABLET 1 Tablet ORAL DAILY Qty = 30 Comments: Last Taken:09/06/16 Time:9AM Lactobac Cmb #3/Fos/Pantethine (Probiotic & Acidophilus Cap) 300MM-250 CAPSULE 1 Capsule ORAL TWICE DAILY Qty = 20 Comments: NOT GIVEN Rivaroxaban (Xarelto) 15 MG TABLET 1 Tablet ORAL DAILY Qty = 30 Comments: Last Taken: 09/14/16 Time: 830 AM Albuterol Sulfate (Albuterol Sulfate) 1.25 MG/3 ML VIAL.NEB 1 Vial Inhale Solution EVERY 4-6 HOURS as needed for COPD Qty = 150 Comments: Last Taken:09/13/16 Time: 2PM Furosemide (Lasix) 40 MG TABLET 1 Tablet ORAL TWICE DAILY Qty = 60 Comments: Last Taken:09/14/16 Time: 830 AM Bacitracin (Bacitracin) 500 UNIT/GRAM OINT...G. 1 Application On the skin 2199 Days = 30 Instructions: apply to affected area(s) Comments: NOT GIVEN Sodium Chloride (Saline Nasal [place]) 0.65 % SPRAY 1 [place] Both sides of nose EVERY 3 HOURS Comments: Last Taken: Time: 830 AM Start taking the following new medications: Amiodarone HCl (Amiodarone HCl) 200 MG TABLET 1 Tablet ORAL DAILY Qty = 30 No Refills Instructions: PLEASE TAKE ONE TABLET DAILY Comments: Last Taken: 09/14/16 Time: 830 AM Metoprolol Succinate (Metoprolol Succinate) 25 MG TAB 0.5 Tablet ORAL DAILY Qty = 30 No Refills Instructions: PLEASE TAKE 0.5 TAB PO BID DAILY Comments: Last Taken: 09/14/16 Time: 830 AM Diltiazem HCl (Diltiazem HCl) 30 MG TABLET 1 Tablet ORAL EVERY 8 HOURS Qty = 90 No Refills Instructions: PLEASE TAKE ONE TAB PO Q8 HRS Comments: Last Taken: 09/14/16 Time: 630 AM Furosemide (Lasix) 40 MG TABLET 1 Tablet ORAL TWICE DAILY Qty = 60 No Refills Instructions: PLEASE TAKE ONE TAB PO BID Comments: Last Taken: 09/14/16 Time: 830 AM Prednisone (Prednisone) 5 MG TABLET 1 Tablet ORAL DAILY Qty = 30 No Refills Instructions: PLEASE TAKE 2 TAB (10 MG) ON 09/15 AND 09/16 PLEASE TAKE 1 TAB 5 MG PO DAILY ONWARDS TILL YOU SEE YOUR PCP Comments: Last Taken: 09/14/16 Time: 830 AM Copies To: ARY LONGORIA,ELAINE Tomas; ISIAH LONGORIA,FRANK Jacobs; JOHNNIE LONGORIA,SAUL Jacinto; JUAN RAMON LONGORIA, SCARLETT
== END 2016-09-14 15:20 | disposition home health service (06) | DRG 291 ==
LOC: ERH 06:35 → 1NO 10:30 → ERHI 10:30 → ENRESERV 11:28 → ENTRNSPT 14:02 → CMPTRNSPT 14:21 → 1NO 14:31
PROVIDERS: Pediatrics; Student in an Organized Health Care Education/Training Program; ADMIT Internal Medicine
PROC: 5A2204Z Restoration of Cardiac Rhythm, Single (ICD-10-PCS; principal; 2016-09-13)
DX: I13.0 Hypertensive heart and chronic kidney disease with heart failure and stage 1 through stage 4 chronic kidney disease, or unspecified chronic kidney disease (principal); I50.33 Acute on chronic diastolic (congestive) heart failure; J96.21 Acute and chronic respiratory failure with hypoxia; I42.9 Cardiomyopathy, unspecified; J44.1 Chronic obstructive pulmonary disease with (acute) exacerbation; Z99.81 Dependence on supplemental oxygen; I48.2 Chronic atrial fibrillation; Z79.01 Long term (current) use of anticoagulants; I25.10 Atherosclerotic heart disease of native coronary artery without angina pectoris; Z95.5 Presence of coronary angioplasty implant and graft; Z95.810 Presence of automatic (implantable) cardiac defibrillator; Z87.891 Personal history of nicotine dependence; Z79.4 Long term (current) use of insulin; Z86.14 Personal history of Methicillin resistant Staphylococcus aureus infection; N40.0 Benign prostatic hyperplasia without lower urinary tract symptoms; E11.22 Type 2 diabetes mellitus with diabetic chronic kidney disease; N18.3 Chronic kidney disease, stage 3 (moderate); E87.6 Hypokalemia; I45.81 Long QT syndrome; M10.9 Gout, unspecified; I71.9 Aortic aneurysm of unspecified site, without rupture
CPT/HCPCS: 1NP; 36415; 81001; 82436; 87040; 87070; 87086; 93005; 93010; 93306; 93970; 96365; 96375; J0696; J1815; J1940; J2920; J3490; J7512

== ENCOUNTER 2017-03-18 02:23 | Inpatient (IN) | payer OTHER, MEDICARE ==
[~2017-03-18] VITALS: Ht 175.3 cm; Wt 83.5 kg
[~2017-03-18 02:23] MED LIST changes: +BACITRACIN28.4 GM TOP; +DILTIAZEM 24HR120 MG PO; +DILTIAZEM HCL30 M1 PO; +METOPROLOL SUCC25 M1 PO; +NOVOLOG100 UNIT/2 SC; +SALINE NASAL SP30 ML NASB
--- NOTE | 2017-03-18 02:33 | ED DYSPNEA/ASTHMA COMPLAINT ---
History of Present Illness General Chief Complaint: Dyspnea (COPD, CHF, Other) Stated Complaint: SOB Source: patient Exam Limitations: no limitations Vital Signs & Intake/Output Vital Signs & Intake/Output Vital Signs Date Time Temp Pulse Resp B/P B/P Pulse O2 O2 Flow FiO2 Mean Ox Delivery Rate 03/18 0643 99.9 75 18 119/58 93 Nasal 4.0L Cannula 03/18 0605 99.6 03/18 0556 99.6 03/18 0442 100.1 03/18 0432 100.1 90 18 155/92 93 Nasal 4.0L Cannula 03/18 0304 92 Nasal 4.0L Cannula 03/18 0239 100.2 100 24 158/71 92 Nasal 4.0L Cannula Allergies Coded Allergies: NO KNOWN ALLERGIES (UNKNOWN 08/10/16) Reconcile Medications Albuterol Sulfate 1.25 MG/3 ML VIAL.NEB 1 Vial INH/ASHLEY Q4-6 PRN COPD Albuterol Sulfate (Ventolin Hfa) 18 GM HFA.AER.AD 2 PUF INH Q6P PRN SHORTNESS OF BREATH Allopurinol 300 MG TABLET 1 TAB PO DAILY GOUT (Reported) Amiodarone (Cordarone) 200 MG TABLET 2 TAB PO DAILY A FIB PLEASE TAKE ONE TABLET DAILY Bacitracin 500 UNIT/GRAM OINT...G. 1 DANIEL TOP 2200 NASAL PROBLEMS (Reported) apply to affected area(s) Diltiazem HCl (Diltiazem 24HR ER) 120 MG CAP.ER.24H 1 CAP PO DAILY ATRIAL FIBRILLATION (Reported) Fluticasone/Vilanterol (Breo Ellipta 100-25 Mcg INH) 100 MCG-25 MCG/DOSE BLST.W.DEV 1 PUFF INH DAILY BREATHING PROBLEMS (Reported) Furosemide (Lasix) 40 MG TABLET 80 MG PO 7:30 AM, & 4:30 PM FLUID OVERLOAD Insulin Aspart (Novolog) 100 UNIT/ML VIAL 3 U SC TID Diabetes (Reported) Insulin Glargine,Hum.rec.anlog (Lantus Solostar) 100 UNIT/ML (3 ML) INSULN.PEN 6 UNIT SC QPM diabtes (Reported) Lactobac Cmb #3/Fos/Pantethine (Probiotic & Acidophilus Cap) 300MM-250 CAPSULE 1 CAP PO BID DIARRHEA Magnesium Oxide 400 MG TABLET 1 TAB PO DAILY SUPPLEMENT (Reported) Metoprolol Succinate 25 MG TAB 0.5 TAB PO BID BP PLEASE TAKE 0.5 TAB PO BID DAILY Multivit-Min/FA/Lycopen/Lutein (Centrum Silver Tablet) 0.4 MG-300 MCG-250 MCG TABLET 1 TAB PO DAILY VITAMIN SUPPORT (Reported) Pravastatin Sodium 80 MG TABLET 1 TAB PO DAILY HLD (Reported) Prednisone 10 MG TABLET 10 MG PO DAILY COPD Prednisone 5 MG TABLET 1 TAB PO DAILY COPD Rivaroxaban (Xarelto) 15 MG TABLET 1 TAB PO DAILY Afib (Reported) Sodium Chloride (Saline Nasal [place]) 0.65 % SPRAY 1 SPRAY NASB Q3 DRY NOSE ( Reported) Tamsulosin HCl (Flomax) 0.4 MG CAP.ER.24H 1 CAP PO DAILY PROSTATE (Reported) Tiotropium [place] (Spiriva) 18 MCG CAP.W.DEV 1 CAP INH DAILY COPD (Reported) Vitamin B Complex (B Complex) 1 EACH TABLET 1 TAB PO DAILY VITAMIN SUPPORT ( Reported) Triage Note: TRIAGE: PATIENT TO ER FROM HOME REPORTING +SOB SINCE NOON YESTERDAY, ON 2LNC BASELINE. O2 IN 80'S ON EMS ARRIVAL. RECIEVED NEB TX X1 ON ROUTE. PATIENT CURRENTLY TAKING PREDNISONE. PREHOSP IV EST #20 LH. Triage Nurses Notes Reviewed? yes Onset: Abrupt Duration: hour(s): Timing: recent history Severity: moderate Activities at Onset: none Prior Episodes/Possible Cause: occasional episodes Modifying Factors: Improves With: rest. Associated Symptoms: dyspnea HPI: 76 yo gentleman h/o chf, ef 35%, biventricular pacer, presents with dyspnea. "My oxygen level went below 90.... I had to give myself 4 liters before it came up again.... usually I'm 97% on room air." He denies fever, chills, phlegm, chest pain, wheezing. He does not believe he had a large salt load today. Past History Travel History Traveled to [place] past 21 day No Medical History Any Pertinent Medical History? 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 Relation not specified for: Fam hx-ischem heart disease Fam hx-ischem heart disease Hx Contributory? No Review of Systems Review of Systems Constitutional: Reports: no symptoms. EENTM: Reports: no symptoms. Respiratory: Reports: no symptoms. Cardiovascular: Reports: no symptoms. GI: Reports: no symptoms. Genitourinary: Reports: no symptoms. Musculoskeletal: Reports: no symptoms. Skin: Reports: no symptoms. Neurological/Psychological: Reports: no symptoms. Hematologic/Endocrine: Reports: no symptoms. Immunologic/Allergic: Reports: no symptoms. All Other Systems: Reviewed and Negative Physical Exam Physical Exam General Appearance: well developed/nourished, mild distress Head: atraumatic, normal appearance Eyes: Bilateral: normal appearance. Ears, Nose, Throat: normal pharynx, normal ENT inspection Neck: normal inspection, supple, full range of motion Respiratory: diminished breath sounds at bases Cardiovascular: regular rate/rhythm Gastrointestinal: normal bowel sounds, soft, non-tender Extremities: normal inspection, normal capillary refill, trace edema Neurologic/Psych: no motor/sensory deficits, awake, alert, oriented x 3 Skin: intact, normal color, warm/dry Core Measures ACS in differential dx? No CVA/TIA Diagnosis No Sepsis Present: Yes Sepsis Focused Exam Completed? Yes Progress Differential Diagnosis: asthma, AMI, CHF, pneumonia Plan of Care: Orders Procedure Date/time Status Nothing by Mouth 03/18 B Active Saline Lock 03/18 640 Active Misc Message 03/18 0641 Active ED Holding Orders 03/18 0641 Active Admit to inpatient 03/18 0641 Active Vital Signs 03/18 0641 Active Code Status 03/18 0641 Active Add-on Test (ER Only) 03/18 0357 Active CULTURE,URINE 03/18 0351 Active URINALYSIS 03/18 0349 Complete BLOOD CULTURE 03/18 0240 Active RAPID VIRAL INFLUENZA A 03/18 0237 Complete BLOOD CULTURE 03/18 0237 Active TROPONIN LEVEL 03/18 0233 Complete PARTIAL THROMBOPLASTIN TIME 03/18 0233 Complete PROTHROMBIN TIME 03/18 0233 Complete D-DIMER 01/29 0233 Complete COMPREHENSIVE METABOLIC PANEL 03/18 232 Complete CBC WITHOUT DIFFERENTIAL 03/18 232 Complete B-TYPE NATRIURETIC PEP (BNP) 03/18 232 Complete EKG 03/18 224 Active Current Medications Sig/Clare Start time Last Medication Dose Stop Time Status Admin Furosemide 80 MG ONCE ONE 03/18 244 CAN (Lasix) 03/18 245 Nitroglycerin 1 GM ONCE ONE 03/18 244 CAN (Nitro-Bid) 03/18 245 Laboratory Tests 03/18/17 0351: Urinalysis MOD H, Urine Color STRAW, Urine Clarity CLEAR, Urine pH 7.0, Ur Specific [place] 1.015, Urine Protein 100 H, Urine Ketones NEG, Urine Nitrite NEG, Urine Bilirubin NEG, Urine Urobilinogen 0.2, Ur Leukocyte Esterase NEG, Ur Microscopic SEDIMENT EXAMINED, Urine RBC 1-3, Urine WBC 1-3 H, Ur Epithelial Cells FEW, Urine Mucus MOD H, Urine Hemoglobin TRACE-INTACT H, Urine Glucose NEG 03/18/17 024: Anion Gap 18 H, Estimated GFR 29 L, BUN/Creatinine Ratio 24.1, Glucose 123 H, Calcium 8.8, Total Bilirubin 0.3, AST 41, ALT 25, Alkaline Phosphatase 80, Troponin I < 0.01, Odk-W-Wesiahexttu Pept 3850 H, Total Protein 7.1, Albumin 4.1, Globulin 3.0, Albumin/Globulin Ratio 1.4, PT 19.7 H, INR 1.89 H, APTT 43 H, D-Dimer High Sensitivty 202, CBC w Diff MAN DIFF ORDERED, RBC 4.39 L, MCV 81.6, MCH 25.2 L, MCHC 30.9 L, RDW 20.9 H, MPV 7.6, Gran % 87.3 H, Lymphocytes % 8.4 L, Monocytes % 3.7, Eosinophils % 0.5, Basophils % 0.1, Absolute Granulocytes 10.5 H, Segmented Neutrophils 83 H, Band Neutrophils 2, Absolute Lymphocytes 1.0 L, Lymphocytes 11 L, Monocytes 4, Absolute Monocytes 0.4, Absolute Eosinophils 0.1, Absolute Basophils 0, Platelet Estimate ADEQUATE, Polychromasia 1+, Poikilocytosis 2+, Ovalocytes 1+, Stomatocytes 1+, Fld Total RBCs Counted 100 Microbiology 03/18 350 URINE ROUT: Urine Culture - RECD 01/29 0320 BLOOD: Blood Culture - RECD 03/18 0259 BLOOD: Blood Culture - RECD 03/18 0240 NASOPHARYN: Influenza Virus A & B Rapid Smear - COMP Diagnostic Imaging: Viewed by Me: Radiology Read. Discussed w/RAD: Radiology Read. CXR Impression: PATIENT: SONDRA CANO PRESENT AGE: 76 PATIENT ACCOUNT NO: [id number] : 39 LOCATION: [facility] ([place]) ORDERING PHYSICIAN: Brandon Phillip MD SERVICE DATE: 03/18/17 EXAM TYPE: RAD - XRY- PORTABLE CHEST XRAY EXAMINATION: XR PORTABLE CHEST CLINICAL INFORMATION: Dyspnea COMPARISON: Multiple priors, most recently chest CT performed 11/20/2016 TECHNIQUE: Portable frontal view of the chest was obtained. FINDINGS: Left chest wall AICD/pacer is unchanged. Cardiac lead overlies the right hemithorax. The lungs are well expanded. There is a right basilar airspace opacity. The left lung appears clear. No pleural effusion or pneumothorax. The cardiomediastinal silhouette is unchanged, with a calcified aorta. IMPRESSION: Right basilar airspace opacity is suspicious for pneumonia. 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 <Electronically signed in Other Vendor System> SIGNED BY: Nina LONGORIA,Juma 03/18/17 031 Initial ED EKG: biventricular pacing Departure Departure Disposition: STILL A PATIENT Condition: Stable Clinical Impression Primary Impression: Pneumonia Secondary Impressions: Sepsis Referrals: Mayur Delatorre MD (PCP/Family) Departure Forms: Customer Survey General Discharge Information Admission Note Spoke With: Dennis Pham MD Documentation of Exam: Documentation of any treatments & extenuating circumstances including Concerns Regarding Discharge (functional status, medication knowledge or non-compliance, living conditions, etc.) that warrant an admission rather than observation: Pt with pneumonia, hypoxic, merits iv abx, 02 support, electrolyte management. Critical Care Note Critical Care Note Critical Care Time: 30-74 min
[2017-03-18 02:58] LABS: ABSOLUTE BASOPHIL COUNT 0 /CUMM (0.0-0.2); ABSOLUTE EOSINOPHIL COUNT 0.1 /CUMM (0.0-0.7); ABSOLUTE GRANULOCYTE CT 10.5 /CUMM (1.4-6.5); ABSOLUTE MONOCYTE COUNT 0.4 /CUMM (0.10-0.60); BASOPHIL % 0.1 % (0.0-2.0); EOSINOPHIL % 0.5 % (0-5); GRANULOCYTE % 87.3 % (42.2-75.2); HEMATOCRIT 35.8 % (42-52); MEAN CORPUSCULAR HGB 25.2 PG (27.0-31.0); MEAN CORPUSCULAR HGB CONC 30.9 G/DL (33.0-37.0); MEAN CORPUSCULAR VOLUME 81.6 FL (80.0-94.0); MEAN PLATELET VOLUME 7.6 FL (7.4-10.4); PLATELET COUNT 322 /CUMM (130-400); RBC DISTRIBUTION WIDTH 20.9 % (11.5-14.5); RED BLOOD CELL CT 4.39 /CUMM (4.70-6.10)
[2017-03-18 03:06] LABS: PT 19.7 SEC (9.4-12.5); PTT 43 SEC (25-37)
--- NOTE | 2017-03-18 03:10 | RADIOLOGY REPORT ---
EXAMINATION: XR PORTABLE CHEST CLINICAL INFORMATION: Dyspnea COMPARISON: Multiple priors, most recently chest CT performed 11/20/2016 TECHNIQUE: Portable frontal view of the chest was obtained. FINDINGS: Left chest wall AICD/pacer is unchanged. Cardiac lead overlies the right hemithorax. The lungs are well expanded. There is a right basilar airspace opacity. The left lung appears clear. No pleural effusion or pneumothorax. The cardiomediastinal silhouette is unchanged, with a calcified aorta. IMPRESSION: Right basilar airspace opacity is suspicious for pneumonia.
--- NOTE | 2017-03-18 07:14 | History & Physical ---
General Information and HPI History of Present Illness: This is a 76-year-old male with past medical history significant for recurrent epistaxis, atrial fibrillation on Xarelto, coronary artery disease status post 5 stent placement as per patient, cardiomyopathy recent EF of 35% on echocardiogram in August 2016, status post pacemaker/defibrillator, COPD on 2 L of oxygen at bedtime, history of C. difficile colitis, recently discharge from with acute hypoxemic respiratory failure is BIBA for evaluation of shortness of breath. Onset of shortness of breath was yesterday at evening time, when patient was relaxing and not exerting himself. He decided to use his nasal canuli o2 supplementaion (he was prescribed 2L for his baseline but he reports he rarely needs it and last time he uses the nasal canuli was in january). Pt reports checking his 02 sats using his home pulse ox and states that he could not get it above "90" despite increasing the 02 from 2 to 4L. Associated symptom include chills, but denies any fever, cough,sputum production, sick contacts, recent travel, abdominal pain, diarrheaa or dysuria. He also denies any chest pain/ palpitation, lower extremity edema, weight gain (he regularly weighs himself), orthopnea or PNDD. Allergies/Medications Allergies: Coded Allergies: NO KNOWN ALLERGIES (UNKNOWN 08/10/16) Home Med list Albuterol Sulfate 1.25 MG/3 ML VIAL.NEB 1 Vial INH/ASHLEY Q4-6 PRN COPD Albuterol Sulfate (Ventolin Hfa) 18 GM HFA.AER.AD 2 PUF INH Q6P PRN SHORTNESS OF BREATH Allopurinol 300 MG TABLET 1 TAB PO DAILY GOUT (Reported) Amiodarone (Cordarone) 200 MG TABLET 1 TAB PO DAILY A FIB PLEASE TAKE ONE TABLET DAILY Bacitracin 500 UNIT/GRAM OINT...G. 1 DANIEL TOP 2200 NASAL PROBLEMS (Reported) apply to affected area(s) Diltiazem HCl (Diltiazem 24HR ER) 120 MG CAP.ER.24H 1 CAP PO DAILY ATRIAL FIBRILLATION (Reported) Fluticasone/Vilanterol (Breo Ellipta 100-25 Mcg INH) 100 MCG-25 MCG/DOSE BLST.W.DEV 1 PUFF INH DAILY BREATHING PROBLEMS (Reported) Furosemide (Lasix) 40 MG TABLET 80 MG PO 7:30 AM, & 4:30 PM FLUID OVERLOAD Insulin Aspart (Novolog) 100 UNIT/ML VIAL 3 U SC TID Diabetes (Reported) Insulin Glargine,Hum.rec.anlog (Lantus Solostar) 100 UNIT/ML (3 ML) INSULN.PEN 6 UNIT SC QPM diabtes (Reported) Lactobac Cmb #3/Fos/Pantethine (Probiotic & Acidophilus Cap) 300MM-250 CAPSULE 1 CAP PO BID DIARRHEA Magnesium Oxide 400 MG TABLET 1 TAB PO DAILY SUPPLEMENT (Reported) Metoprolol Succinate 25 MG TAB 0.5 TAB PO BID BP PLEASE TAKE 0.5 TAB PO BID DAILY Multivit-Min/FA/Lycopen/Lutein (Centrum Silver Tablet) 0.4 MG-300 MCG-250 MCG TABLET 1 TAB PO DAILY VITAMIN SUPPORT (Reported) Pravastatin Sodium 80 MG TABLET 1 TAB PO DAILY HLD (Reported) Prednisone 10 MG TABLET 10 MG PO DAILY COPD Prednisone 5 MG TABLET 1 TAB PO DAILY COPD Rivaroxaban (Xarelto) 15 MG TABLET 1 TAB PO DAILY Afib (Reported) Sodium Chloride (Saline Nasal [place]) 0.65 % SPRAY 1 SPRAY NASB Q3 DRY NOSE ( Reported) Tamsulosin HCl (Flomax) 0.4 MG CAP.ER.24H 1 CAP PO DAILY PROSTATE (Reported) Tiotropium [place] (Spiriva) 18 MCG CAP.W.DEV 1 CAP INH DAILY COPD (Reported) Vitamin B Complex (B Complex) 1 EACH TABLET 1 TAB PO DAILY VITAMIN SUPPORT ( Reported) Past History Travel History Traveled to [place] past 21 day No Medical History Neurological: NONE EENT: epistaxis, HEARING LOSS Cardiovascular: AFIB, CHF, hypertension, hyperlipidemia, STENTS x 5 LCW PACER/ DEBRILLATOR Respiratory: asthma, COPD, pneumonia Gastrointestinal: NONE Hepatic: NONE Renal: NONE Musculoskeletal: gout, osteoarthritis Psychiatric: anxiety Endocrine: diabetes Blood Disorders: NONE Cancer(s): NONE CAMPGROUND HAND/Reproductive: NONE History of MRSA: Yes History of VRE: No History of CDIFF: No Surgical History Surgical History: AICD/PACER, BYPASS Past Family/Social History Family History Relations & Conditions if any FATHER BROTHER (CAD,HTN). Relation not specified for: Fam hx-ischem heart disease Fam hx-ischem heart disease Psychosocial History Who Do You Live With? spouse Services at Home: VISITING NURSE Y Primary Language: Mongolian Functional Ability ADLs Independent: dressing, eating, toileting, bathing. Ambulation: independent IADLs Independent: shopping, housework, finances, food prep, telephone, transportation , medication admin. Review of Systems Review of Systems Constitutional: Reports: no symptoms. EENTM: Reports: no symptoms. Cardiovascular: Reports: no symptoms. Respiratory: Reports: see HPI. GI: Reports: see HPI. Genitourinary: Reports: no symptoms. Musculoskeletal: Reports: no symptoms. Skin: Reports: no symptoms. Neurological/Psychological: Reports: no symptoms. Hematologic/Endocrine: Reports: no symptoms. Immunologic/Allergic: Reports: no symptoms. Exam & Diagnostic Data Last 24 Hrs of Vital Signs/I&O Vital Signs Date Time Temp Pulse Resp B/P B/P Pulse O2 O2 Flow FiO2 Mean Ox Delivery Rate 03/18 1932 Nasal 3.5L Cannula 03/18 1806 Nasal 4.0L Cannula 03/18 1800 97.7 68 20 140/60 96 03/18 1741 98.6 61 18 137/63 96 Nasal 4.0L Cannula 03/18 1625 98.9 63 16 130/61 97 Room Air 03/18 1341 100.8 67 18 139/64 95 03/18 1200 98.5 67 20 138/63 97 Nasal 4.0L Cannula 03/18 1020 100.1 68 18 105/51 03/18 1020 100.1 68 18 105/51 03/18 1020 100.1 68 18 105/51 03/18 0804 100.1 68 18 105/51 93 Nasal 4.0L Cannula 03/18 0800 97 Nasal 4.0L Cannula 03/18 0800 94 Nasal 4.0L Cannula 03/18 0800 100.1 68 18 105/51 93 Nasal 4.0L Cannula 03/18 0643 99.9 75 18 119/58 93 Nasal 4.0L Cannula 03/18 0605 99.6 03/18 0556 99.6 03/18 0442 100.1 03/18 0432 100.1 90 18 155/92 93 Nasal 4.0L Cannula 03/18 0304 92 Nasal 4.0L Cannula 03/18 0239 100.2 100 24 158/71 92 Nasal 4.0L Cannula Intake & Output 03/18 1600 03/18 0800 03/18 0000 Intake Total Output Total Balance Patient 83.461 kg 83.461 kg Weight Weight Reported by Patient Measurement Method Physical Exam General Appearance Alert, Oriented X3, Cooperative Skin No Significant Lesion Skin Temp/Moisture Exam: Warm/Dry Sepsis Skin Exam (color): Normal for Ethnicity HEENT Atraumatic, Mucous Membr. moist/pink Neck Supple, No JVD Lymphatic Cervical nl Cardiovascular Regular Rate, Normal S1, Normal S2 Lungs Clear to Auscultation Abdomen Soft, No Tenderness, No Hepatospenomegaly Neurological Normal Speech, Normal Tone, Sensation Intact, Cranial Nerves 3-12 NL Extremities No Edema, Normal Pulses, No Tenderness/Swelling Last 24 Hrs of Labs/[place]: Laboratory Tests 03/18/17 0941: Troponin I 0.03 03/18/17 0351: Urinalysis MOD H, Urine Color STRAW, Urine Clarity CLEAR, Urine pH 7.0, Ur Specific [place] 1.015, Urine Protein 100 H, Urine Ketones NEG, Urine Nitrite NEG, Urine Bilirubin NEG, Urine Urobilinogen 0.2, Ur Leukocyte Esterase NEG, Ur Microscopic SEDIMENT EXAMINED, Urine RBC 1-3, Urine WBC 1-3 H, Ur Epithelial Cells FEW, Urine Mucus MOD H, Urine Hemoglobin TRACE-INTACT H, Urine Glucose NEG 03/18/17 0240: Anion Gap 18 H, Estimated GFR 29 L, BUN/Creatinine Ratio 24.1, Glucose 123 H, Calcium 8.8, Phosphorus 5.1 H, Magnesium 2.2, Total Bilirubin 0.3, AST 41, ALT 25, Alkaline Phosphatase 80, Troponin I < 0.01, Qpd-N-Lxlvjzkepho Pept 3850 H, Total Protein 7.1, Albumin 4.1, Globulin 3.0, Albumin/Globulin Ratio 1.4, PT 19.7 H, INR 1.89 H, APTT 43 H, D-Dimer High Sensitivty 202, CBC w Diff MAN DIFF ORDERED, RBC 4.39 L, MCV 81.6, MCH 25.2 L, MCHC 30.9 L, RDW 20.9 H, MPV 7.6, Gran % 87.3 H, Lymphocytes % 8.4 L, Monocytes % 3.7, Eosinophils % 0.5, Basophils % 0.1, Absolute Granulocytes 10.5 H, Segmented Neutrophils 83 H, Band Neutrophils 2, Absolute Lymphocytes 1.0 L, Lymphocytes 11 L, Monocytes 4, Absolute Monocytes 0.4, Absolute Eosinophils 0.1, Absolute Basophils 0, Platelet Estimate ADEQUATE, Polychromasia 1+, Poikilocytosis 2+, Ovalocytes 1+, Stomatocytes 1+, Fld Total RBCs Counted 100 Microbiology 03/18 350 URINE ROUT: Legionella Antigen - RES 03/18 035 URINE ROUT: Streptococcus pneumoniae Antigen (M - RES 03/18 035 URINE ROUT: Urine Culture - RES 03/18 0320 BLOOD: Blood Culture - RECD 03/18 0259 BLOOD: Blood Culture - RECD 03/18 0240 NASOPHARYN: Influenza Virus A & B Rapid Smear - COMP Diagnostic Data CXR Results SERVICE DATE: 03/18/17 EXAM TYPE: RAD - XRY-PORTABLE CHEST XRAY EXAMINATION: XR PORTABLE CHEST CLINICAL INFORMATION: Dyspnea COMPARISON: Multiple priors, most recently chest CT performed 11/20/2016 TECHNIQUE: Portable frontal view of the chest was obtained. FINDINGS: Left chest wall AICD/pacer is unchanged. Cardiac lead overlies the right hemithorax. The lungs are well expanded. There is a right basilar airspace opacity. The left lung appears clear. No pleural effusion or pneumothorax. The cardiomediastinal silhouette is unchanged, with a calcified aorta. IMPRESSION: Right basilar airspace opacity is suspicious for pneumonia. DICTATED BY: Nina LONGORIA,Juma Assessment/Plan Assessment: This is a is a 76-year-old gentleman who is a former smoker witha [id number] history and past medical history significant for CAD with multiple stent placement, COPD on 2 L home oxygen, atrial fibrillation, ischemic cardiomyopathy with an EF of 35% status post AICD, significant pulmonary hypertension, diabetes , mitral regurgitation, presents with an acute onset of shortness of breath. Impression * Dyspnea. In the context of right basilar opacity finding on chest x-ray and symptoms of chills and shortness of breath, low-grade fever, pneumonia is possibly the most likely cause of patient dyspne. His history of COPD also predisposes him to risk of dyspneic episodes, however he does not endorse any symptoms during history taking such us increased cough and sputum production that suggest an exacerbation of COPD, his physical examination was also benign of any wheezing. Given his extensive cardiac history, etiologies such as ACS and CHF exacerbation have to be considered. However given the lack of any chest pain, initial troponin EKG being negative for any new ischemic changes, and no physical finding of of acute decompensated heart failure (No JVD,edema, congestion/edema on CXR), cardiac etiology is less likely. * Pneumonia. Symptoms of shortness of breath and chills with a grade fever in the context of right basilar opacity on chest x-ray is suggestive of a respiratory infection. * Leukocytosis. Possibly could be secondary to pneumonia infection. Liver it's noted that patient does have a history of elevated white blood count, cool frequent steroid use be possibly because of persistent leukocytosis. There is no history of any lymphomas or leukemia noted. * History of chronic diseases: Afebrile, COPD, CAD, CHF, diabetes, gout, osteophyte arthritis, mitral regurg. Plan Admit to general medicine floor O2 supplementation to keep sats above 88% TRC nebs Initial troponin negative will trend one more time Ceftriaxone azithromycin for community acquired pneumonia Will obtain sputum cultures urine strep/Legionella antigen Continue all cardiac meds Accu-Chek 3 times a day and bedtime NovoLog sliding scale DVT prophylaxis: Addressed by NOAC Diet: Carbohydrate 2 CODE STATUS: Full code As Ranked By This Provider Problem List: 1. Pneumonia Core Measures/Misc (11/04) Acute Coronary Syndrome ACS Diagnosis: No Congestive Heart Failure Congestive Heart Failure Diagnosis No Cerebrovascular Accident CVA/TIA Diagnosis: No VTE (View Protocol) VTE Risk Factors Acute Medical Illness No Mechanical VTE Prophylaxis d/t N/A MechProphylax Ordered No VTE Pharm Prophylaxis d/t Other Sepsis (View protocol) Sepsis Present: No
[2017-03-18 08:00] VITALS: BP 105/51
[2017-03-18] MEDS ORDERED: AMIODARONE HCL200 M1 PO (09:27)
--- NOTE | 2017-03-18 11:10 | Admission Certification ---
Admission Certification Certification Statement - As attending physician, I certify that at the time of - admission, based on clinical presentation, severity of - symptoms, need for further diagnostic testing and - therapeutic interventions, and risk of adverse outcomes - without in-hospital treatment, in my clinical assessment, - this patient requires an acute hospital stay for a minimum - of two nights or longer. I have also considered psychsocial - factors such as support system, advanced age, financial - issues, cognitive issues, and failed out-patient treatments, - past re-admission history, safety of patient, and lack of - compliance as applicable. Specific rationale supporting this admission is: Acute bronchitis
--- NOTE | 2017-03-18 11:13 | PN- Att Addend ---
Attending Addendum Attending Brief Note 76-year-old white male came in because of increased shortness of breath wheezes cough and phlegm. Does not seem to be in congestive heart failure at this time is no edema chest x-ray showed no CHF but needs to be admitted for his shortness of breath and wheezes will get respiratory therapy, steroids antibiotic therapy and have Pulmonary and cardiology inputs, nonicteric kidney function patient is on diuretics, but needs them, patient does in acute pulmonary edema pretty easily. Laboratory Tests 03/18/17 0941: Troponin I 0.03 03/18/17 0351: Urinalysis MOD H, Urine Color STRAW, Urine Clarity CLEAR, Urine pH 7.0, Ur Specific [place] 1.015, Urine Protein 100 H, Urine Ketones NEG, Urine Nitrite NEG, Urine Bilirubin NEG, Urine Urobilinogen 0.2, Ur Leukocyte Esterase NEG, Ur Microscopic SEDIMENT EXAMINED, Urine RBC 1-3, Urine WBC 1-3 H, Ur Epithelial Cells FEW, Urine Mucus MOD H, Urine Hemoglobin TRACE-INTACT H, Urine Glucose NEG 03/18/17 0240: Anion Gap 18 H, Estimated GFR 29 L, BUN/Creatinine Ratio 24.1, Glucose 123 H, Calcium 8.8, Phosphorus 5.1 H, Magnesium 2.2, Total Bilirubin 0.3, AST 41, ALT 25, Alkaline Phosphatase 80, Troponin I < 0.01, Uhf-S-Ucqidbvkpbx Pept 3850 H, Total Protein 7.1, Albumin 4.1, Globulin 3.0, Albumin/Globulin Ratio 1.4, PT 19.7 H, INR 1.89 H, APTT 43 H, D-Dimer High Sensitivty 202, CBC w Diff MAN DIFF ORDERED, RBC 4.39 L, MCV 81.6, MCH 25.2 L, MCHC 30.9 L, RDW 20.9 H, MPV 7.6, Gran % 87.3 H, Lymphocytes % 8.4 L, Monocytes % 3.7, Eosinophils % 0.5, Basophils % 0.1, Absolute Granulocytes 10.5 H, Segmented Neutrophils 83 H, Band Neutrophils 2, Absolute Lymphocytes 1.0 L, Lymphocytes 11 L, Monocytes 4, Absolute Monocytes 0.4, Absolute Eosinophils 0.1, Absolute Basophils 0, Platelet Estimate ADEQUATE, Polychromasia 1+, Poikilocytosis 2+, Ovalocytes 1+, Stomatocytes 1+, Fld Total RBCs Counted 100 Microbiology 03/18 0240 NASOPHARYN: Influenza Virus A & B Rapid Smear - COMP Microbiology Date/Time Procedure - Status Source Growth 03/18 035 Legionella Antigen - RES URINE ROUT 03/18 0351 Streptococcus pneumoniae Antigen (M - RES URINE ROUT 03/18 0351 Urine Culture - RES URINE ROUT 03/18 0320 Blood Culture - RECD BLOOD 03/18 025 Blood Culture - RECD BLOOD 03/18 024 Influenza Virus A & B Rapid Smear - COMP NASOPHARYN Vital Signs Date Time Temp Pulse Resp B/P B/P Pulse O2 O2 Flow FiO2 Mean Ox Delivery Rate 03/18 1020 100.1 68 18 105/51 03/18 1020 100.1 68 18 105/51 03/18 1020 100.1 68 18 105/51 03/18 0804 100.1 68 18 105/51 93 Nasal 4.0L Cannula 03/18 0643 99.9 75 18 119/58 93 Nasal 4.0L Cannula 03/18 0605 99.6 03/18 0556 99.6 03/18 0442 100.1 03/18 0432 100.1 90 18 155/92 93 Nasal 4.0L Cannula Intake & Output 03/18 1600 Intake Total Output Total Balance Patient 184 lb Weight Weight Reported by Patient Measurement Method
[2017-03-18 12:00] VITALS: BP 138/63
[2017-03-18 18:00] VITALS: BP 140/60
[2017-03-18 23:06] VITALS: BP 136/60
[2017-03-19 07:19] VITALS: BP 131/52
--- NOTE | 2017-03-19 08:41 | PN- Housestaff ---
Subjective Follow-up For: Pneumonia Subjective: He was seen and examined this morning he is alert awake and oriented. No acute events overnight. He continues to report shortness of breath and cough. Denied any sputum production. Denies any chest pain, palpitations, fever or chills. Vitals were normal Review of Systems Constitutional: Denies: see HPI. Objective Last 24 Hrs of Vital Signs/I&O Vital Signs Date Time Temp Pulse Resp B/P B/P Pulse O2 O2 Flow FiO2 Mean Ox Delivery Rate 03/19 1317 98.6 75 19 128/40 92 Nasal 3.0L Cannula 03/19 1204 80 122/78 03/19 1117 95 Nasal 3.5L Cannula 03/19 0928 70 135/58 03/19 0928 70 135/58 03/19 0927 97.8 70 18 135/58 94 Nasal 3.0L Cannula 03/19 0800 94 Nasal 3.5L Cannula 03/19 0719 97.3 66 20 131/52 94 Nasal 3.0L Cannula 03/19 0000 Nasal 3.5L Cannula 03/18 2306 99.1 62 18 136/60 98 Room Air 03/18 2212 62 136/60 03/18 1932 Nasal 3.5L Cannula 03/18 1806 Nasal 4.0L Cannula 03/18 1800 97.7 68 20 140/60 96 03/18 1741 98.6 61 18 137/63 96 Nasal 4.0L Cannula 03/18 1625 98.9 63 16 130/61 97 Room Air Intake & Output 03/19 1600 03/19 0800 03/19 0000 Intake Total 820 240 480 Output Total 900 300 Balance -80 -60 480 Intake, IV 20 Intake, Oral 800 240 480 Number 0 Bowel Movements Output, Urine 900 300 Physical Exam General Appearance: Alert, Oriented X3, Cooperative, No Acute Distress Other Physical Findings: HEENT Atraumatic, Mucous Membr. moist/pink Neck Supple, No JVD Lymphatic Cervical nl Cardiovascular Regular Rate, Normal S1, Normal S2 Lungs Clear to Auscultation Abdomen Soft, No Tenderness, No Hepatospenomegaly Neurological Normal Speech, Normal Tone, Sensation Intact, Cranial Nerves 3-12 NL Extremities No Edema, Normal Pulses, No Tenderness/Swelling Current Medications: Current Medications Sig/Clare Start time Last Medication Dose Route Stop Time Status Admin Albuterol Sulfate 3 ML BID 03/18 2200 AC 03/19 INH 1115 Albuterol Sulfate 3 ML Q6 PRN 03/18 1445 AC INH Amiodarone HCl 200 MG DAILY 03/18 1000 AC 03/19 PO 0928 Atorvastatin Calcium 40 MG 1700 03/18 1700 AC 03/18 PO 1712 Azithromycin 250 MG DAILY 03/19 1000 AC 03/19 PO 0928 Ceftriaxone Sodium 1,000 MG DAILY 03/19 1000 AC 03/19 IV 0929 Diltiazem HCl 120 MG DAILY 03/18 1000 AC 03/19 PO 0928 Furosemide 0 .STK-MED ONE 03/18 1704 DC PO Furosemide 40 MG 7:30 AM, & 4:30 PM 03/18 1630 AC 03/19 PO 0557 Insulin Aspart 0 TIDAC 03/18 1200 AC 03/18 SC 1122 Insulin Detemir 6 UNITS AT BEDTIME 03/18 2200 AC 03/18 SC 2211 Magnesium Oxide 400 MG DAILY 03/18 1000 AC 03/19 PO 0928 Metoprolol Succinate 12.5 MG BID 03/18 1000 AC 03/19 PO 1204 Potassium Chloride 20 MEQ DAILY 03/19 1000 AC 03/19 PO 1204 Rivaroxaban 15 MG 1700 03/18 1700 AC 03/18 PO 1712 Tamsulosin HCl 0.4 MG DAILY 03/18 1000 AC 03/19 PO 0928 Last 24 Hrs of Lab/[place] Results Last 24 Hrs of Labs/[place]: Laboratory Tests 03/19/17 0715: Anion Gap 14, Estimated GFR 24 L, BUN/Creatinine Ratio 24.6, CBC w Diff NO MAN DIFF REQ, RBC 3.43 L, MCV 80.7, MCH 25.6 L, MCHC 31.8 L, RDW 20.7 H, MPV 8.0 , Gran % 85.6 H, Lymphocytes % 7.9 L, Monocytes % 5.1, Eosinophils % 1.1, Basophils % 0.3, Absolute Granulocytes 9.9 H, Absolute Lymphocytes 0.9 L, Absolute Monocytes 0.6, Absolute Eosinophils 0.1, Absolute Basophils 0 Assessment/Plan Assessment: This is a is a 76-year-old gentleman who is a former smoker witha [id number]-ixri history and past medical history significant for CAD with multiple stent placement, COPD on 2 L home oxygen, atrial fibrillation on xaralto, ischemic cardiomyopathy with an EF of 35% status post AICD, significant pulmonary hypertension, diabetes, mitral regurgitation, presented with an acute onset of shortness of breath. MAXIMUM TEMPERATURE 100.8, heart rate 60, respiratory rate 18, blood pressure 105/51, saturating at 93 on room air. WBC 12, hemoglobin 11 and hematocrit 35, platelets 322 BUN 53 and creatinine 2.2 LFTs normal Troponin EKG - wnl cxr Right basilar airspace opacity is suspicious for pneumonia. Pneumonia. Symptoms of shortness of breath and chills with a low grade fever in the context of right basilar opacity on chest x-ray is suggestive of a respiratory infection pmeumonia. His history of COPD also predisposes him to risk of dyspneic episodes, however he does not endorse any symptoms during history taking such us increased cough and sputum production that suggest an exacerbation of COPD, his physical examination was also benign of any wheezing. * Admited to general medicine floor * O2 supplementation to keep sats above 88% * TRC nebs * flu neg * Ceftriaxone azithromycin for community acquired pneumonia- day2 * sputum cultures neg * Blood cultures negative so far * urine strep/Legionella antigen neg * follow pulmonology recommendations * TRC * Monitor fever, leukocytosis Chronic systolic heart failure Given his extensive cardiac history, etiologies such as ACS and CHF exacerbation have to be considered. However given the lack of any chest pain, initial troponin EKG being negative for any new ischemic changes, and no physical finding of of acute decompensated heart failure (No JVD,edema, congestion/edema on CXR), cardiac etiology is less likely. * Continue all the cardiac medications * Continue Lasix 40 mg twice daily. However he takes 80 mg twice daily at home * Potassium supplementation * Monitor ins and outs * Daily BEP- CR CREEPING UP * Follow cardiology recommendations Acute on chronic anemia Hemoglobin 8.8 and hematocrit 27.7. Hemoglobin in January 9.6. * Guaiac all stools * Follow-up iron panel * Follow-up B12 and folate * Bilirubin normal * Closely monitor hemoglobin CAD status post multiple stent placements-continue Lipitor, metoprolol Atrial fibrillation continue home medication of amiodarone, Cardizem and Xarelto Ischemic cardiomyopathy with ejection fraction 35% status post AICD Diabetes mellitus Accu-Cheks and insulin sliding scale Hypertension continue metoprolol 12.5 mg twice daily Hyperlipidemia continue Lipitor Gout-continue allopurinol 300 mg daily BPH continue tamsulosin DVT prophylaxis: Addressed by [place] Diet: Carbohydrate 2 CODE STATUS: Full code Problem List: 1. COPD with exacerbation Pain Ratin Pain Location: n/a Pain Goal: Remain pain free Pain Plan: none Tomorrow's Labs & Rationales: cbc bep
[2017-03-19 09:03] LABS: ABSOLUTE BASOPHIL COUNT 0 /CUMM (0.0-0.2); ABSOLUTE EOSINOPHIL COUNT 0.1 /CUMM (0.0-0.7); ABSOLUTE LYMPH COUNT 0.9 /CUMM (1.2-3.4); MEAN CORPUSCULAR HGB 25.6 PG (27.0-31.0); MEAN CORPUSCULAR HGB CONC 31.8 G/DL (33.0-37.0); PLATELET COUNT 237 /CUMM (130-400); WHITE BLOOD CELL COUNT 11.5 /CUMM (4.8-10.8)
[2017-03-19 09:27] VITALS: BP 135/58
[2017-03-19 09:50] LABS: ABSOLUTE GRANULOCYTE CT 9.9 /CUMM (1.4-6.5); ABSOLUTE MONOCYTE COUNT 0.6 /CUMM (0.10-0.60); BASOPHIL % 0.3 % (0.0-2.0); EOSINOPHIL % 1.1 % (0-5); MEAN CORPUSCULAR VOLUME 80.7 FL (80.0-94.0); RBC DISTRIBUTION WIDTH 20.7 % (11.5-14.5); RED BLOOD CELL CT 3.43 /CUMM (4.70-6.10)
--- NOTE | 2017-03-19 10:02 | PN- Att Addend ---
Attending Addendum Attending Brief Note Patient feeling better today is breathing is improved. Has a little skin tear on the left forearm with a little bleeding (patient on anticoagulation) Temp max 100.8 yesterday. No changes on physical. Cardiology to evaluate the diuretic dose this is BUN and creatinine slightly elevated. Continue antibiotic treatment and respiratory therapy. Intake & Output 03/19 1600 03/19 0400 03/18 1600 03/18 0400 03/17 1600 03/17 0400 Intake Total 240 480 Output Total 500 Balance -260 480 Intake, Oral 240 480 Output, Urine 500 Patient 184 lb Weight Weight Reported by Patient Measurement Method Current Medications Sig/Clare Start time Last Medication Dose Route Stop Time Status Admin Albuterol Sulfate 3 ML BID 03/18 2200 AC 03/18 INH 1830 Albuterol Sulfate 3 ML Q6 PRN 03/18 1445 AC INH Amiodarone HCl 200 MG DAILY 03/18 1000 AC 03/19 PO 0928 Atorvastatin Calcium 40 MG 1700 03/18 1700 AC 03/18 PO 1712 Azithromycin 250 MG DAILY 03/19 1000 AC 03/19 PO 0928 Ceftriaxone Sodium 1,000 MG DAILY 03/19 1000 AC 03/19 IV 0929 Diltiazem HCl 120 MG DAILY 03/18 1000 AC 03/19 PO 0928 Furosemide 0 .STK-MED ONE 03/18 1704 DC PO Furosemide 40 MG 7:30 AM, & 4:30 PM 03/18 1630 AC 03/19 PO 0557 Insulin Aspart 0 TIDAC 03/18 1200 AC 03/18 SC 1122 Insulin Detemir 6 UNITS AT BEDTIME 03/18 2200 AC 03/18 SC 2211 Magnesium Oxide 400 MG DAILY 03/18 1000 AC 03/19 PO 0928 Metoprolol Succinate 12.5 MG BID 03/18 1000 AC 03/18 PO 2212 Potassium Chloride 20 MEQ DAILY 03/19 1000 AC PO Rivaroxaban 15 MG 1700 03/18 1700 AC 03/18 PO 1712 Tamsulosin HCl 0.4 MG DAILY 03/18 1000 AC 03/19 PO 0928 Laboratory Tests 03/19/17 0715: Anion Gap 14, Estimated GFR 24 L, BUN/Creatinine Ratio 24.6, CBC w Diff Pending , WBC Pending, RBC Pending, Hgb Pending, Hct Pending, MCV Pending, MCH Pending, MCHC Pending, RDW Pending, Plt Count Pending, MPV Pending, Gran % Pending, Lymphocytes % Pending, Monocytes % Pending, Eosinophils % Pending, Basophils % Pending, Absolute Granulocytes Pending, Absolute Lymphocytes Pending, Absolute Monocytes Pending, Absolute Eosinophils Pending, Absolute Basophils Pending 03/18/17 0941: Troponin I 0.03 03/18/17 035: Urinalysis MOD H, Urine Color STRAW, Urine Clarity CLEAR, Urine pH 7.0, Ur Specific [place] 1.015, Urine Protein 100 H, Urine Ketones NEG, Urine Nitrite NEG, Urine Bilirubin NEG, Urine Urobilinogen 0.2, Ur Leukocyte Esterase NEG, Ur Microscopic SEDIMENT EXAMINED, Urine RBC 1-3, Urine WBC 1-3 H, Ur Epithelial Cells FEW, Urine Mucus MOD H, Urine Hemoglobin TRACE-INTACT H, Urine Glucose NEG 03/18/17 0240: Anion Gap 18 H, Estimated GFR 29 L, BUN/Creatinine Ratio 24.1, Glucose 123 H, Calcium 8.8, Phosphorus 5.1 H, Magnesium 2.2, Total Bilirubin 0.3, AST 41, ALT 25, Alkaline Phosphatase 80, Troponin I < 0.01, Guy-R-Zooihrobtdc Pept 3850 H, Total Protein 7.1, Albumin 4.1, Globulin 3.0, Albumin/Globulin Ratio 1.4, PT 19.7 H, INR 1.89 H, APTT 43 H, D-Dimer High Sensitivty 202, CBC w Diff MAN DIFF ORDERED, RBC 4.39 L, MCV 81.6, MCH 25.2 L, MCHC 30.9 L, RDW 20.9 H, MPV 7.6, Gran % 87.3 H, Lymphocytes % 8.4 L, Monocytes % 3.7, Eosinophils % 0.5, Basophils % 0.1, Absolute Granulocytes 10.5 H, Segmented Neutrophils 83 H, Band Neutrophils 2, Absolute Lymphocytes 1.0 L, Lymphocytes 11 L, Monocytes 4, Absolute Monocytes 0.4, Absolute Eosinophils 0.1, Absolute Basophils 0, Platelet Estimate ADEQUATE, Polychromasia 1+, Poikilocytosis 2+, Ovalocytes 1+, Stomatocytes 1+, Fld Total RBCs Counted 100 Microbiology 03/18 350 URINE ROUT: Legionella Antigen - RES 03/18 350 URINE ROUT: Streptococcus pneumoniae Antigen (M - RES 03/18 350 URINE ROUT: Urine Culture - RES 03/18 0320 BLOOD: Blood Culture - RECD 03/18 025 BLOOD: Blood Culture - RECD 03/18 0240 NASOPHARYN: Influenza Virus A & B Rapid Smear - COMP Microbiology 03/18 350 URINE ROUT: Legionella Antigen - RES 03/18 035 URINE ROUT: Streptococcus pneumoniae Antigen (M - RES 03/18 035 URINE ROUT: Urine Culture - RES 03/18 0320 BLOOD: Blood Culture - RECD 03/18 258 BLOOD: Blood Culture - RECD 03/18 0240 NASOPHARYN: Influenza Virus A & B Rapid Smear - COMP Vital Signs Date Time Temp Pulse Resp B/P B/P Pulse O2 O2 Flow FiO2 Mean Ox Delivery Rate 03/19 09 70 135/58 03/19 09 70 135/58 03/19 09 97.8 70 18 135/58 94 Nasal 3.0L Cannula 03/19 0719 97.3 66 20 131/52 94 Nasal 3.0L Cannula 03/19 0000 Nasal 3.5L Cannula 03/18 2306 99.1 62 18 136/60 98 Room Air 03/18 2212 62 136/60 03/18 1932 Nasal 3.5L Cannula 03/18 1806 Nasal 4.0L Cannula 03/18 1800 97.7 68 20 140/60 96 03/18 1741 98.6 61 18 137/63 96 Nasal 4.0L Cannula 03/18 1625 98.9 63 16 130/61 97 Room Air 03/18 1341 100.8 67 18 139/64 95 03/18 1200 98.5 67 20 138/63 97 Nasal 4.0L Cannula 03/18 1020 100.1 68 18 105/51 03/18 1020 100.1 68 18 105/51 03/18 1020 100.1 68 18 105/51
[2017-03-19 10:26] LABS: GRANULOCYTE % 85.6 % (42.2-75.2)
--- NOTE | 2017-03-19 10:27 | Cons- Pulmonary ---
General Information and HPI Consulting Request Date of Consult: 03/18/17 Requested By: med team History of Present Illness: This is a 76-year-old male with past medical history significant for recurrent epistaxis, atrial fibrillation on Xarelto, coronary artery disease status post 5 stent placement as per patient, cardiomyopathy recent EF of 35% on echocardiogram in August 2016, status post pacemaker/defibrillator, COPD on 2 L of oxygen at bedtime, history of C. difficile colitis, recently discharge from with acute hypoxemic respiratory failure is BIBA for evaluation of shortness of breath. Onset of shortness of breath was yesterday at evening time, when patient was relaxing and not exerting himself. He decided to use his nasal canuli o2 supplementaion (he was prescribed 2L for his baseline but he reports he rarely needs it and last time he uses the nasal canuli was in january). Pt reports checking his 02 sats using his home pulse ox and states that he could not get it above "90" despite increasing the 02 from 2 to 4L. Associated symptom include chills, but denies any fever, cough,sputum production, sick contacts, recent travel, abdominal pain, diarrheaa or dysuria. He also denies any chest pain/ palpitation, lower extremity edema, weight gain (he regularly weighs himself), orthopnea or PNDD. Allergies/Medications Allergies: Coded Allergies: NO KNOWN ALLERGIES (UNKNOWN 08/10/16) Home Med List: Albuterol Sulfate 1.25 MG/3 ML VIAL.NEB 1 Vial INH/ASHLEY Q4-6 PRN COPD Albuterol Sulfate (Ventolin Hfa) 18 GM HFA.AER.AD 2 PUF INH Q6P PRN SHORTNESS OF BREATH Allopurinol 300 MG TABLET 1 TAB PO DAILY GOUT (Reported) Amiodarone (Cordarone) 200 MG TABLET 1 TAB PO DAILY A FIB PLEASE TAKE ONE TABLET DAILY Bacitracin 500 UNIT/GRAM OINT...G. 1 DANIEL TOP 2200 NASAL PROBLEMS (Reported) apply to affected area(s) Diltiazem HCl (Diltiazem 24HR ER) 120 MG CAP.ER.24H 1 CAP PO DAILY ATRIAL FIBRILLATION (Reported) Fluticasone/Vilanterol (Breo Ellipta 100-25 Mcg INH) 100 MCG-25 MCG/DOSE BLST.W.DEV 1 PUFF INH DAILY BREATHING PROBLEMS (Reported) Furosemide (Lasix) 40 MG TABLET 80 MG PO 7:30 AM, & 4:30 PM FLUID OVERLOAD Insulin Aspart (Novolog) 100 UNIT/ML VIAL 3 U SC TID Diabetes (Reported) Insulin Glargine,Hum.rec.anlog (Lantus Solostar) 100 UNIT/ML (3 ML) INSULN.PEN 6 UNIT SC QPM diabtes (Reported) Lactobac Cmb #3/Fos/Pantethine (Probiotic & Acidophilus Cap) 300MM-250 CAPSULE 1 CAP PO BID DIARRHEA Magnesium Oxide 400 MG TABLET 1 TAB PO DAILY SUPPLEMENT (Reported) Metoprolol Succinate 25 MG TAB 0.5 TAB PO BID BP PLEASE TAKE 0.5 TAB PO BID DAILY Multivit-Min/FA/Lycopen/Lutein (Centrum Silver Tablet) 0.4 MG-300 MCG-250 MCG TABLET 1 TAB PO DAILY VITAMIN SUPPORT (Reported) Pravastatin Sodium 80 MG TABLET 1 TAB PO DAILY HLD (Reported) Prednisone 10 MG TABLET 10 MG PO DAILY COPD Prednisone 5 MG TABLET 1 TAB PO DAILY COPD Rivaroxaban (Xarelto) 15 MG TABLET 1 TAB PO DAILY Afib (Reported) Sodium Chloride (Saline Nasal [place]) 0.65 % SPRAY 1 SPRAY NASB Q3 DRY NOSE ( Reported) Tamsulosin HCl (Flomax) 0.4 MG CAP.ER.24H 1 CAP PO DAILY PROSTATE (Reported) Tiotropium [place] (Spiriva) 18 MCG CAP.W.DEV 1 CAP INH DAILY COPD (Reported) Vitamin B Complex (B Complex) 1 EACH TABLET 1 TAB PO DAILY VITAMIN SUPPORT ( Reported) Review of Systems Review of Systems Constitutional: Reports: see HPI. Comments Review of Systems Constitutional: Reports: no symptoms. EENTM: Reports: no symptoms. Cardiovascular: Reports: no symptoms. Respiratory: Reports: see HPI. GI: Reports: see HPI. Genitourinary: Reports: no symptoms. Musculoskeletal: Reports: no symptoms. Skin: Reports: no symptoms. Neurological/Psychological: Reports: no symptoms. Hematologic/Endocrine: Reports: no symptoms. Immunologic/Allergic: Reports: no symptoms. 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 Relation not specified for: Fam hx-ischem heart disease Fam hx-ischem heart disease Psychosocial History Where Do You Live? Home Who Do You Live With? 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 Ambulation: independent IADLs Independent: shopping, housework, finances, food prep, telephone, transportation , medication admin. Exam & Diagnostic Data Last 24 Hrs of Vital Signs/I&O Vital Signs Date Time Temp Pulse Resp B/P B/P Pulse O2 O2 Flow FiO2 Mean Ox Delivery Rate 03/19 1317 98.6 75 19 128/40 92 Nasal 3.0L Cannula 03/19 1204 80 122/78 03/19 1117 95 Nasal 3.5L Cannula 03/19 0928 70 135/58 03/19 0928 70 135/58 03/19 0927 97.8 70 18 135/58 94 Nasal 3.0L Cannula 03/19 0800 94 Nasal 3.5L Cannula 03/19 0719 97.3 66 20 131/52 94 Nasal 3.0L Cannula 03/19 0000 Nasal 3.5L Cannula 03/18 2306 99.1 62 18 136/60 98 Room Air 03/18 2212 62 136/60 03/18 1932 Nasal 3.5L Cannula Intake & Output 03/19 1600 03/19 0800 03/19 0000 Intake Total 820 240 480 Output Total 900 300 Balance -80 -60 480 Intake, IV 20 Intake, Oral 800 240 480 Number 0 Bowel Movements Output, Urine 900 300 Last 48 Hrs of Labs/[place]: Laboratory Tests 03/19/17 0715: Anion Gap 14, Estimated GFR 24 L, BUN/Creatinine Ratio 24.6, Iron 18 L, TIBC 314, Ferritin 51.6, Vitamin B12 637, Folate > 20.0 H, CBC w Diff NO MAN DIFF REQ, RBC 3.43 L, MCV 80.7, MCH 25.6 L, MCHC 31.8 L, RDW 20.7 H, MPV 8.0, Gran % 85.6 H, Lymphocytes % 7.9 L, Monocytes % 5.1, Eosinophils % 1.1, Basophils % 0.3, Absolute Granulocytes 9.9 H, Absolute Lymphocytes 0.9 L, Absolute Monocytes 0.6, Absolute Eosinophils 0.1, Absolute Basophils 0 03/18/17 0941: Troponin I 0.03 03/18/17 0351: Urinalysis MOD H, Urine Color STRAW, Urine Clarity CLEAR, Urine pH 7.0, Ur Specific [place] 1.015, Urine Protein 100 H, Urine Ketones NEG, Urine Nitrite NEG, Urine Bilirubin NEG, Urine Urobilinogen 0.2, Ur Leukocyte Esterase NEG, Ur Microscopic SEDIMENT EXAMINED, Urine RBC 1-3, Urine WBC 1-3 H, Ur Epithelial Cells FEW, Urine Mucus MOD H, Urine Hemoglobin TRACE-INTACT H, Urine Glucose NEG 03/18/17 0240: Anion Gap 18 H, Estimated GFR 29 L, BUN/Creatinine Ratio 24.1, Glucose 123 H, Calcium 8.8, Phosphorus 5.1 H, Magnesium 2.2, Total Bilirubin 0.3, AST 41, ALT 25, Alkaline Phosphatase 80, Troponin I < 0.01, Dlr-C-Gqnbcupmrbm Pept 3850 H, Total Protein 7.1, Albumin 4.1, Globulin 3.0, Albumin/Globulin Ratio 1.4, PT 19.7 H, INR 1.89 H, APTT 43 H, D-Dimer High Sensitivty 202, CBC w Diff MAN DIFF ORDERED, RBC 4.39 L, MCV 81.6, MCH 25.2 L, MCHC 30.9 L, RDW 20.9 H, MPV 7.6, Gran % 87.3 H, Lymphocytes % 8.4 L, Monocytes % 3.7, Eosinophils % 0.5, Basophils % 0.1, Absolute Granulocytes 10.5 H, Segmented Neutrophils 83 H, Band Neutrophils 2, Absolute Lymphocytes 1.0 L, Lymphocytes 11 L, Monocytes 4, Absolute Monocytes 0.4, Absolute Eosinophils 0.1, Absolute Basophils 0, Platelet Estimate ADEQUATE, Polychromasia 1+, Poikilocytosis 2+, Ovalocytes 1+, Stomatocytes 1+, Fld Total RBCs Counted 100 Microbiology 03/18 239 NASOPHARYN: Influenza Virus A & B Rapid Smear - COMP Assessment/Plan Impression/Plan: General Appearance Alert, Oriented X3, Cooperative Skin No Significant Lesion Skin Temp/Moisture Exam: Warm/Dry Sepsis Skin Exam (color): Normal for Ethnicity HEENT Atraumatic, Mucous Membr. moist/pink Neck Supple, No JVD Lymphatic Cervical nl Cardiovascular Regular Rate, Normal S1, Normal S2 Lungs Clear to Auscultation Abdomen Soft, No Tenderness, No Hepatospenomegaly Neurological Normal Speech, Normal Tone, Sensation Intact, Cranial Nerves 3-12 NL Extremities No Edema, Normal Pulses, No Tenderness/Swelling CXR reviewed IMPRESSION: Right basilar airspace opacity is suspicious for pneumonia. IMPRESSION This is a gentleman with paroxysmal atrial fibrillation on xeralto, significant COPD, biventricular pacer for a previous wide-complex rhythm, previous coronary artery disease, significant pulmonary hypertension, mitral regurgitation, diabetes, previous gout and osteoarthritis, currently on 24-hour oxygen with 40- pack-year smoking history who has quit smoking few yrs ago now here * Fever and chills and cxr sugg of pna, and influenza is still a possibility but flu swab neg * History of recurrent Pulm Edema Pafib now s/p failed electrical cardioversion, now on high dose amio 200, appears euvolumic * PT with severe copd with minimal wheezing * Chronic mild rt sided Effusion due to chf no evidence of empyema etc * Recent Cdiff colitis now status post antibiotic therapy no diarrhea * Previous bilateral epistaxis * Sig COPD with a right middle lobe bronchiectasis from his previous pneumonia with MRSA colonization. * Previous bronchiolitis with Previous small lung nodules * Chronic kidney disease with atrophic kidney. * Hypertension, gout, previous high blood sugar, previous gout. * Mild aortic aneurysm * BPH on Flomax REC COnt abx if any fever start vanco as he has had vanco Hold iv steroids for now cont inhalers NEbs Hold lasix due to prerenal state Cont rate control meds Cxr in am Consult Acknowledgment - Thank you for your consult request.
--- NOTE | 2017-03-19 10:43 | Cons- Cardiology ---
General Information and HPI Consulting Request Date of Consult: 03/19/17 Requested By: Vero LONGORIA,Dennis Collins Reason for Consult: Shortness of breath, question CHF versus bronchitis versus flu. Source of Information: patient, old records Exam Limitations: no limitations History of Present Illness: Sondra Caldwell is a 76 year old man with a history of ischemic heart disease, recurrent pulmonary edema, and paroxsysmal atrial fibrillation. The patient has a history of severe hypertension, recurrent flash pulmonary edema associated with atrial fibrillation, left bundle branch block. In 05/2013 he presented with pulmonary edema, and was transferred for a cardiac catheterization to [facility]. This catheterization showed nonobstructive coronary artery disease, and a severely decreased ejection fraction of 25%. He was recommended for biventricular ICD, which he had by Dr. Jordan on that admission. He subsequently had a followup echocardiogram in 07/2013 when he was hospitalized again for pneumonia. That echocardiogram showed normal left ventricular ejection fraction in July, and we sent him for a confirmatory echo in August 2013, which also documented normal left ventricular systolic function. Sondra was re-admitted to [facility] on 12/08/2014, after having a cough and being short of breath for several days. He was found to be in mild pulmonary edema. He was admitted and diuresed, and did pretty well. The main problem during his hospitalization, after his congestion cleared, was difficulty in controlling his blood pressure, and we did make some adjustments to his blood pressure medication. We did repeat his echocardiogram, which showed still good left ventricular systolic function, with an ejection fraction greater than 55%, and no wall motion abnormalities. He did have diastolic dysfunction. His pulmonary artery pressure was mildly elevated 40-45 mmHg. I saw Sondra in the office on 03/15/15 at which time he was doing okay, and no changes were made at that time. However, subsequently he was readmitted to [facility] on 03/29/2015 with recurrent congestive heart failure. He actually had been in the emergency room a few days earlier complaining of shortness of breath, but his chest x-ray did not show anything although his BNP was about 4000. Subsequently on admission on the his BNP was over 9000 and his chest x-ray clearly showed congestive heart failure. I interrogated his device which showed that his Optivol readings were running very high for a few weeks, and in addition he was having more in the way of atrial fibrillation, up to 2.6%. In fact, Sondra said the night before admission his blood pressure machine recorded a heart rate of 150, although he states that he does not feel it at all when his heart is going fast. I discussed the situation with Dr. Jordan, who is his gre tutor, and we agreed to put him on amiodarone therapy for better control of his atrial fibrillation. In addition, his blood pressure was running high in the hospital and we adjusted his blood pressure medications by adding hydralazine and increasing amlodipine. I saw Sondra in the office in April 2015 after his hospitalization. In the hospital, we did an echocardiogram that showed good left ventricular systolic function and a mildly elevated pulmonary artery pressure. We had started him on amiodarone and amlodipine and hydralazine for his blood pressure. In the office he looked pretty good, and I told him to taper off the amiodarone to a maintenance dose of 200 mg daily. He did see Dr. Jordan in the interim. He has also been downloading his defibrillator readings to Dr. Jordan. Apparently Dr. Jordan told him he was in atrial fibrillation briefly a few weeks before, but he was unaware of it and did not have any congestive heart failure at that time. Sondra was seen in the office on 07/11/2015 and was doing well at that time. I checked his pacemaker and it showed a decreased atrial fibrillation burden. Subsequently he was admitted to the hospital on 07/12/2015, which was the day after his office visit, complaining of shortness of breath. He had fairly mild congestion on his chest x-ray. He had a lot of wheezing. He was treated with diuretics and respiratory treatments and improved. His BNP was 3420. His BUN was 50 and creatinine 2.1, which was a little higher than his baseline. I personally thought that there was more of a bronchospastic component than heart failure component to his admission. He remained in sinus rhythm with appropriate pacing function during the hospital stay, and did not have any atrial fibrillation I saw him again in the office shortly after his hospitalization in June, in early July and he was doing well. No changes were made to his medications, etc. at that time. Since his visit in November 2015 Tre was doing well until mid November when he had another brief hospitalization for bronchitis and COPD exacerbation. There were no cardiac issues on that hospitaliztion. Tre was seen by me in May 2016. Prior to that he had seen Dr. Jordan who had decreased his amiodarone because his atrial fibrillation burden had decreased significantly. When I saw him in the office his OptiVol readings were elevated and I increased his Lasix to 60 mg daily. He then did well until 07/15/2016 when he was admitted for worsening shortness of breath and congestive heart failure and was found to be in and out of atrial fibrillation. Interrogation of his device showed that his atrial fibrillation burden had increased significantly over the May to June time frame and his OptiVol readings were significantly elevated starting in about February. He was treated with intravenous diuretics, respiratory treatments, and we started him back on amiodarone loading dose. He improved significantly and was able to be discharged in just a couple of days. When I saw him after his hospitalization of 07/15 he was doing pretty well, and was back in sinus rhythm. However, he was readmitted again to [facility] on 08/03/16. He was admitted initially for recurrent epistaxis, and eventually required discontinuation of his Xarelto and cauterization of his nose. However, during the hospitalization he developed hypotension, congestive heart failure and recurrent atrial fibrillation, which persisted to the end of his hospital stay, which was on 08/17 when he was finally discharged. His hospitalization was complicated by respiratory failure as well, which prolonged his stay. We made some significant changes in his medications, including stopping most of his blood pressure medications, as he became also hypotensive in the hospital. When I saw him in the office in August he was doing pretty well. However, he was readmitted twice in August with congestive heart failure and atrial fibrillation. Subsequently his meds were again adjusted, but he was once again admitted on again with shortness of breath and pulmonary edema on his chest x-ray. He was in and out of atrial fibrillation during this hospitalization. We continued him in IV Lasix until he diuresed, and then sent him out on 80 mg of Lasix twice daily. and restarted him on loading dose of amiodarone. He was discharged on amiodarone 400 mg daily. He was discharged on 10/21/2016. At his post hospital discharge visit I decreased his amiodarone to 200 mg. daily. I last saw Tre about 6 weeks ago at which time he was doing very well. I interrogated his device and it did not show any evidence of recurrent atrial fibrillation or congestive heart failure. He was off oxygen. He was doing well until a couple of days ago when he began noticing increasing shortness of breath and need for some oxygen. Finally he came to the emergency room and his chest x -ray is suggestive of right lower lobe pneumonia. There does not appear to be any evidence of congestive heart failure on the x-ray. His proBNP was modestly elevated at 3850. His enzymes are negative 2. He has not had any chest pains. He does not feel he has been in atrial fibrillation. His current medical regimen consists of amiodarone 200 mg daily, Cartia, Lasix 80 mg twice daily, metoprolol 12.5 mg twice daily, potassium, pravastatin, and Xarelto. Allergies/Medications Allergies: Coded Allergies: NO KNOWN ALLERGIES (UNKNOWN 08/10/16) Home Med List: Albuterol Sulfate 1.25 MG/3 ML VIAL.NEB 1 Vial INH/ASHLEY Q4-6 PRN COPD Albuterol Sulfate (Ventolin Hfa) 18 GM HFA.AER.AD 2 PUF INH Q6P PRN SHORTNESS OF BREATH Allopurinol 300 MG TABLET 1 TAB PO DAILY GOUT (Reported) Amiodarone (Cordarone) 200 MG TABLET 1 TAB PO DAILY A FIB PLEASE TAKE ONE TABLET DAILY Bacitracin 500 UNIT/GRAM OINT...G. 1 DANIEL TOP 2200 NASAL PROBLEMS (Reported) apply to affected area(s) Cefuroxime Axetil (Cefuroxime) 250 MG TABLET 250 MG PO DAILY infection continue for 3 more days to complete a 7 day treatment course. Diltiazem HCl (Diltiazem 24HR ER) 120 MG CAP.ER.24H 1 CAP PO DAILY ATRIAL FIBRILLATION (Reported) Fluticasone/Vilanterol (Breo Ellipta 100-25 Mcg INH) 100 MCG-25 MCG/DOSE BLST.W.DEV 1 PUFF INH DAILY BREATHING PROBLEMS (Reported) Furosemide (Lasix) 40 MG TABLET 80 MG PO 7:30 AM, & 4:30 PM FLUID OVERLOAD Insulin Aspart (Novolog) 100 UNIT/ML VIAL 3 U SC TID Diabetes (Reported) Insulin Glargine,Hum.rec.anlog (Lantus Solostar) 100 UNIT/ML (3 ML) INSULN.PEN 6 UNIT SC QPM diabtes (Reported) Lactobac Cmb #3/Fos/Pantethine (Probiotic & Acidophilus Cap) 300MM-250 CAPSULE 1 CAP PO BID DIARRHEA Magnesium Oxide 400 MG TABLET 1 TAB PO DAILY SUPPLEMENT (Reported) Metoprolol Succinate 25 MG TAB 0.5 TAB PO BID BP PLEASE TAKE 0.5 TAB PO BID DAILY Multivit-Min/FA/Lycopen/Lutein (Centrum Silver Tablet) 0.4 MG-300 MCG-250 MCG TABLET 1 TAB PO DAILY VITAMIN SUPPORT (Reported) Pravastatin Sodium 80 MG TABLET 1 TAB PO DAILY HLD (Reported) Prednisone 10 MG TABLET 10 MG PO DAILY COPD Prednisone 5 MG TABLET 1 TAB PO DAILY COPD Rivaroxaban (Xarelto) 15 MG TABLET 1 TAB PO DAILY Afib (Reported) Sodium Chloride (Saline Nasal [place]) 0.65 % SPRAY 1 SPRAY NASB Q3 DRY NOSE ( Reported) Tamsulosin HCl (Flomax) 0.4 MG CAP.ER.24H 1 CAP PO DAILY PROSTATE (Reported) Tiotropium [place] (Spiriva) 18 MCG CAP.W.DEV 1 CAP INH DAILY COPD (Reported) Vitamin B Complex (B Complex) 1 EACH TABLET 1 TAB PO DAILY VITAMIN SUPPORT ( Reported) Current Medications: Current Medications Sig/Clare Start time Last Medication Dose Route Stop Time Status Admin Albuterol Sulfate 3 ML BID 03/18 2200 AC 03/18 INH 1830 Albuterol Sulfate 3 ML Q6 PRN 03/18 1445 AC INH Amiodarone HCl 200 MG DAILY 03/18 1000 AC 03/19 PO 0928 Atorvastatin Calcium 40 MG 1700 03/18 1700 AC 03/18 PO 1712 Azithromycin 250 MG DAILY 03/19 1000 AC 03/19 PO 0928 Ceftriaxone Sodium 1,000 MG DAILY 03/19 1000 AC 03/19 IV 0929 Diltiazem HCl 120 MG DAILY 03/18 1000 AC 03/19 PO 0928 Furosemide 0 .STK-MED ONE 03/18 1704 DC PO Furosemide 40 MG 7:30 AM, & 4:30 PM 03/18 1630 AC 03/19 PO 0557 Insulin Aspart 0 TIDAC 03/18 1200 AC 03/18 SC 1122 Insulin Detemir 6 UNITS AT BEDTIME 03/18 2200 AC 03/18 SC 2211 Magnesium Oxide 400 MG DAILY 03/18 1000 AC 03/19 PO 0928 Metoprolol Succinate 12.5 MG BID 03/18 1000 AC 03/18 PO 2212 Potassium Chloride 20 MEQ DAILY 03/19 1000 AC PO Rivaroxaban 15 MG 1700 03/18 1700 AC 03/18 PO 1712 Tamsulosin HCl 0.4 MG DAILY 03/18 1000 AC 03/19 PO 0928 Review of Systems Review of Systems: He has no other complaints in the review of systems. Past History Travel History Traveled to [place] past 21 day No Medical History Neurological: NONE EENT: epistaxis, HEARING LOSS Cardiovascular: AFIB, CHF, hypertension, hyperlipidemia, STENTS x 5 LCW PACER/ DEBRILLATOR Respiratory: asthma, COPD, pneumonia Gastrointestinal: NONE Hepatic: NONE Renal: NONE Musculoskeletal: gout, osteoarthritis Psychiatric: anxiety Endocrine: diabetes Blood Disorders: NONE Cancer(s): NONE DRAMATIC CRITIC/Reproductive: 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 Relation not specified for: Fam hx-ischem heart disease Fam hx-ischem heart disease Psychosocial History Where Do You Live? Home Who Do You Live With? spouse Services at Home: VISITING NURSE Primary Language: Italian Smoking Status: Former Smoker Functional Ability ADLs Independent: dressing, eating, toileting, bathing. Ambulation: independent IADLs Independent: shopping, housework, finances, food prep, telephone, transportation , medication admin. ECHO Results (as available) Report: CONCLUSIONS Mild concentric left ventricular hypertrophy. Left ventricular ejection fraction is estimated at 55-60 %. There is mild inferolateral hypokinesis. Other perez all contract well. Catheter/pacemaker wire in the right ventricular cavity. Catheter/pacemaker wire in the right atrial appendage. Mild to moderate left atrial dilatation. Mild to moderate thickening/calcification of the mitral valve leaflets. [id number] mitral regurgitation. Focal thickening of the aortic valve cusps. No aortic stenosis. Trace aortic regurgitation. Right ventricular systolic pressure estimated to be elevated at 40- 45 mmHg. The IVC is moderately dilated. Results are similar to the last echocardiogram of 12/02/2014, except that mild inferolateral hypokinesis of the left ventricle is noted on the current study. Exam & Diagnostic Data Vital Signs and I&O Vital Signs Date Time Temp Pulse Resp B/P B/P Pulse O2 O2 Flow FiO2 Mean Ox Delivery Rate 03/19 927 70 135/58 01/30 0928 70 135/58 03/19 0927 97.8 70 18 135/58 94 Nasal 3.0L Cannula 03/19 0719 97.3 66 20 131/52 94 Nasal 3.0L Cannula 03/19 0000 Nasal 3.5L Cannula 03/18 2306 99.1 62 18 136/60 98 Room Air 03/18 2212 62 136/60 03/18 1932 Nasal 3.5L Cannula 03/18 1806 Nasal 4.0L Cannula 03/18 1800 97.7 68 20 140/60 96 03/18 1741 98.6 61 18 137/63 96 Nasal 4.0L Cannula 03/18 1625 98.9 63 16 130/61 97 Room Air 03/18 1341 100.8 67 18 139/64 95 03/18 1200 98.5 67 20 138/63 97 Nasal 4.0L Cannula Intake & Output 03/19 1600 03/19 0800 03/19 0000 03/18 1600 03/18 0800 03/18 0000 Intake Total 240 480 Output Total 200 300 Balance -200 -60 480 Intake, Oral 240 480 Output, Urine 200 300 Patient 184 lb 184 lb Weight Weight Reported by Patient Measurement Method Physical Exam: He is in no distress HEENT exam is normal Chest reveals decreased breath sounds and minimal wheezing and no rales or rhonchi Heart regular rhythm soft heart sounds no murmurs Extremities no edema Labs/[place] Results: Laboratory Tests 03/19 03/18 0715 0941 Chemistry Sodium (137 - 145 mmol/L) 137 Potassium (3.5 - 5.1 mmol/L) 3.5 Chloride (98 - 107 mmol/L) 97 L Carbon Dioxide (22 - 30 mmol/L) 26 Anion Gap (5 - 16) 14 BUN (9 - 20 mg/dL) 64 H Creatinine (0.7 - 1.2 mg/dL) 2.6 H Estimated GFR (>60 ml/min) 24 L BUN/Creatinine Ratio (7 - 25 %) 24.6 Troponin I (<0.11 ng/ml) 0.03 Hematology CBC w Diff NO MAN DIFF REQ WBC (4.8 - 10.8 /CUMM) 11.5 H RBC (4.70 - 6.10 /CUMM) 3.43 L Hgb (14.0 - 18.0 G/DL) 8.8 L Hct (42 - 52 %) 27.7 L MCV (80.0 - 94.0 FL) 80.7 MCH (27.0 - 31.0 PG) 25.6 L MCHC (33.0 - 37.0 G/DL) 31.8 L RDW (11.5 - 14.5 %) 20.7 H Plt Count (130 - 400 /CUMM) 237 MPV (7.4 - 10.4 FL) 8.0 Gran % (42.2 - 75.2 %) 85.6 H Lymphocytes % (20.5 - 51.1 %) 7.9 L Monocytes % (1.7 - 9.3 %) 5.1 Eosinophils % (0 - 5 %) 1.1 Basophils % (0.0 - 2.0 %) 0.3 Absolute Granulocytes (1.4 - 6.5 /CUMM) 9.9 H Absolute Lymphocytes (1.2 - 3.4 /CUMM) 0.9 L Absolute Monocytes (0.10 - 0.60 /CUMM) 0.6 Absolute Eosinophils (0.0 - 0.7 /CUMM) 0.1 Absolute Basophils (0.0 - 0.2 /CUMM) 0 03/18 03/18 0351 0240 Chemistry Sodium (137 - 145 mmol/L) 144 Potassium (3.5 - 5.1 mmol/L) 4.0 Chloride (98 - 107 mmol/L) 97 L Carbon Dioxide (22 - 30 mmol/L) 29 Anion Gap (5 - 16) 18 H BUN (9 - 20 mg/dL) 53 H Creatinine (0.7 - 1.2 mg/dL) 2.2 H Estimated GFR (>60 ml/min) 29 L BUN/Creatinine Ratio (7 - 25 %) 24.1 Glucose (65 - 99 mg/dL) 123 H Calcium (8.4 - 10.2 mg/dL) 8.8 Phosphorus (2.5 - 4.5 mg/dL) 5.1 H Magnesium (1.6 - 2.3 mg/dL) 2.2 Total Bilirubin (0.2 - 1.3 mg/dL) 0.3 AST (17 - 59 U/L) 41 ALT (21 - 72 U/L) 25 Alkaline Phosphatase (< 127 U/L) 80 Troponin I (<0.11 ng/ml) < 0.01 [id number] Pept (<125 pg/mL) 3850 H Total Protein (6.3 - 8.2 g/dL) 7.1 Albumin (3.5 - 5.0 g/dL) 4.1 Globulin (1.9 - 4.2 gm/dL) 3.0 Albumin/Globulin Ratio (1.1 - 2.2 %) 1.4 Coagulation PT (9.4 - 12.5 SEC) 19.7 H INR (0.90 - 1.17) 1.89 H APTT (25 - 37 SEC) 43 H D-Dimer High Sensitivty (0 - 243 ng/ml) 202 Hematology CBC w Diff MAN DIFF ORDERED WBC (4.8 - 10.8 /CUMM) 12.0 H RBC (4.70 - 6.10 /CUMM) 4.39 L Hgb (14.0 - 18.0 G/DL) 11.1 L Hct (42 - 52 %) 35.8 L MCV (80.0 - 94.0 FL) 81.6 MCH (27.0 - 31.0 PG) 25.2 L MCHC (33.0 - 37.0 G/DL) 30.9 L RDW (11.5 - 14.5 %) 20.9 H Plt Count (130 - 400 /CUMM) 322 MPV (7.4 - 10.4 FL) 7.6 Gran % (42.2 - 75.2 %) 87.3 H Lymphocytes % (20.5 - 51.1 %) 8.4 L Monocytes % (1.7 - 9.3 %) 3.7 Eosinophils % (0 - 5 %) 0.5 Basophils % (0.0 - 2.0 %) 0.1 Absolute Granulocytes (1.4 - 6.5 /CUMM) 10.5 H Segmented Neutrophils (42.2 - 75.2 %) 83 H Band Neutrophils (0.0 - 5.0 %) 2 Absolute Lymphocytes (1.2 - 3.4 /CUMM) 1.0 L Lymphocytes (20.5 - 51.1 %) 11 L Monocytes (1.7 - 9.3 %) 4 Absolute Monocytes (0.10 - 0.60 /CUMM) 0.4 Absolute Eosinophils (0.0 - 0.7 /CUMM) 0.1 Absolute Basophils (0.0 - 0.2 /CUMM) 0 Platelet Estimate (ADEQUATE) ADEQUATE Polychromasia 1+ Poikilocytosis 2+ Ovalocytes 1+ Stomatocytes 1+ Other Body Source Fld Total RBCs Counted (%) 100 Urines Urinalysis MOD H Urine Color (YEL,AMB,STR) STRAW Urine Clarity (CLEAR) CLEAR Urine pH (5.0 - 8.0) 7.0 Ur Specific [place] (1.001 - 1.035) 1.015 Urine Protein (NEG,<30 MG/DL) 100 H Urine Ketones (NEG) NEG Urine Nitrite (NEG) NEG Urine Bilirubin (NEG) NEG Urine Urobilinogen (0.1 - 1.0 EU/dl) 0.2 Ur Leukocyte Esterase (NEG) NEG Ur Microscopic SEDIMENT EXAMINED Urine RBC (0 - 5 /HPF) 1-3 Urine WBC (0 - 2 /HPF) 1-3 H Ur Epithelial Cells (NONE,FEW) FEW Urine Mucus (FEW,NONE) MOD H Urine Hemoglobin (NEG) TRACE-INTACT H Urine Glucose (N MG/DL) NEG Diagnostic Data EKG Results EKG shows AV dual paced rhythm at a rate of 70. CXR Results PATIENT: SONDRA CALDWELL PRESENT AGE: 76 PATIENT ACCOUNT NO: [id number] : 39 LOCATION: [facility] ORDERING PHYSICIAN: Brandon Phillip MD SERVICE DATE: 03/18/17 EXAM TYPE: RAD - XRY-PORTABLE CHEST XRAY EXAMINATION: XR PORTABLE CHEST CLINICAL INFORMATION: Dyspnea COMPARISON: Multiple priors, most recently chest CT performed 11/20/2016 TECHNIQUE: Portable frontal view of the chest was obtained. FINDINGS: Left chest wall AICD/pacer is unchanged. Cardiac lead overlies the right hemithorax. The lungs are well expanded. There is a right basilar airspace opacity. The left lung appears clear. No pleural effusion or pneumothorax. The cardiomediastinal silhouette is unchanged, with a calcified aorta. IMPRESSION: Right basilar airspace opacity is suspicious for pneumonia. DICTATED BY: Juma Wood MD DATE/TIME DICTATED:03/18/17304 RADIOISOTOPE PRODUCTION OPERATOR:SANTANA DATE/TIME TRANSCRIBED:03/18/17304 CONFIDENTIAL, DO NOT COPY WITHOUT APPROPRIATE AUTHORIZATION. <Electronically signed in Other Vendor System> SIGNED BY: Juma Wood MD 03/18 0314 Other Results Interrogation of his device reveals that he has had no recent episodes of atrial fibrillation and the Optivol readings are still quite low indicating no excess fluid overload. Assessment/Plan Assessment/Plan Tre presents with shortness of breath and hypoxia. He is not in atrial fibrillation. He has pneumonia on his chest x-ray. He does not appear to have any evidence of congestive heart failure on chest x-ray or clinical exam. Also interrogation of his device shows a low Optivol number not consistent with CHF, and no evidence of atrial fibrillation by mode switch episodes. His BUN and creatinine have risen somewhat. He remains on Lasix 40 mg twice daily. I recommend holding his Lasix for one or 2 days. He will need Lasix as an outpatient but I think we can safely held it in the hospital and monitor him closely with regard to fluid and renal function. Copies To: Julian LONGORIA,Fernando Portillo; Juan Ramon LONGORIA,Mayur Consult Acknowledgment - Thank you for your consult request.
[2017-03-19 13:17] VITALS: BP 128/40
--- NOTE | 2017-03-19 19:32 | Patient Discharge Instructions ---
Discharge Instructions General Discharge Information You were seen/treated for: Pneumonia Special Instructions: Follow-up with PCP in one week after discharge Follow-up with material clerk in 1 week after discharge Follow-up with third helper in 1 week after discharge Diet Continue normal diet: Yes Activity Full Activity/No Limits: Yes Acute Coronary Syndrome Inclusion Criteria At DC or during hospital stay patient has or had the following: ACS DIAGNOSIS No Discharge Core Measures Meds if any: Prescribed or Continued at Discharge Meds if any: NOT Prescribed or Continued at Discharge Congestive Heart Failure Inclusion Criteria At DC or during hospital stay patient has or had the following: CHF DIAGNOSIS No Discharge Core Measures Meds if any: Prescribed or Continued at Discharge Meds if any: NOT Prescribed or Continued at Discharge Cerebrovascular accident Inclusion Criteria At DC or during hospital stay patient has or had the following: CVA/TIA Diagnosis No Discharge Core Measures Meds if any: Prescribed or Continued at Discharge Meds if any: NOT Prescribed or Continued at Discharge Venous thromboembolism Inclusion Criteria VTE Diagnosis No VTE Type NONE VTE Confirmed by (Test) NONE Discharge Core Measures - Per Current guidelines, there needs to be overlap - treatment for the first 5 days of Warfarin therapy. - If discharged on Warfarin prior to 5 days of - overlap therapy, the patient will need to be - assessed for post discharge needs including - *Post discharge parental anticoagulation - *Warfarin and/or parental anticoagulation education - *Follow up date to check INR post discharge At least 5 days overlap therapy as Inpatient No Meds if any: Prescribed or Continued at Discharge Note: Overlap Therapy is Warfarin and Anticoagulant Meds if any: NOT Prescribed or Continued at Discharge
[2017-03-19 23:35] VITALS: BP 149/54
--- NOTE | 2017-03-20 07:31 | PN- Housestaff ---
Subjective Follow-up For: Dyspnea Subjective: Seen and examined bedside. Still reports feeling tired however no fever, chills , increased shortness of breath, chest pain, palpitation, nausea, or vomiting. Review of Systems Constitutional: Reports: no symptoms. Objective Last 24 Hrs of Vital Signs/I&O Vital Signs Date Time Temp Pulse Resp B/P B/P Pulse O2 O2 Flow FiO2 Mean Ox Delivery Rate 03/20 1411 98.4 74 20 156/50 96 03/20 0855 76 180/52 03/20 0855 76 180/52 03/20 0800 96 Room Air 03/20 0735 99.9 65 20 145/65 94 Room Air 03/20 0000 Room Air 03/19 2335 100.0 67 18 149/54 91 Room Air 03/19 2126 67 149/54 03/19 2030 92 Nasal 3.5L Cannula 03/19 1600 Nasal 3.5L Cannula Intake & Output 03/20 1600 03/20 0800 03/20 0000 Intake Total 240 480 Output Total 950 250 Balance -710 230 Intake, Oral 240 480 Output, Urine 950 250 Physical Exam General Appearance: Alert, Oriented X3, Cooperative Other Physical Findings: HEENT Atraumatic, Mucous Membr. moist/pink Neck Supple, No JVD Lymphatic Cervical nl Cardiovascular Regular Rate, Normal S1, Normal S2 Lungs Clear to Auscultation Abdomen Soft, No Tenderness, No Hepatospenomegaly Neurological Normal Speech, Normal Tone, Sensation Intact, Cranial Nerves 3-12 NL Extremities No Edema, Normal Pulses, No Tenderness/Swelling Current Medications: Current Medications Sig/Clare Start time Last Medication Dose Route Stop Time Status Admin Albuterol Sulfate 3 ML BID 03/18 2200 AC 03/20 INH 1030 Albuterol Sulfate 3 ML Q6 PRN 03/18 1445 AC INH Amiodarone HCl 200 MG DAILY 03/18 1000 AC 03/20 PO 0855 Atorvastatin Calcium 40 MG 1700 03/18 1700 AC 03/19 PO 1800 Azithromycin 250 MG DAILY 03/19 1000 DC 03/20 PO 0854 Ceftriaxone Sodium 1,000 MG DAILY 03/19 1000 DC 03/20 IV 0849 Cefuroxime Sodium 250 MG Q12 03/21 1000 UNVr PO Diltiazem HCl 120 MG DAILY 03/18 1000 AC 03/20 PO 0855 Furosemide 40 MG 7:30 AM, & 4:30 PM 03/18 1630 DC 03/19 PO 1800 Insulin Aspart 0 TIDAC 03/18 1200 AC 03/19 SC 1816 Insulin Detemir 6 UNITS AT BEDTIME 03/18 2200 AC 03/19 SC 2125 Magnesium Oxide 400 MG DAILY 03/18 1000 AC 03/20 PO 0854 Metoprolol Succinate 12.5 MG BID 03/18 1000 AC 03/19 PO 2126 Potassium Chloride 20 MEQ DAILY 03/19 1000 AC 03/20 PO 0854 Rivaroxaban 15 MG 1700 03/18 1700 AC 03/19 PO 1800 Tamsulosin HCl 0.4 MG DAILY 03/18 1000 AC 03/20 PO 0855 Last 24 Hrs of Lab/[place] Results Last 24 Hrs of Labs/Mics: Vital Signs Date Time Temp Pulse Resp B/P B/P Pulse O2 O2 Flow FiO2 Mean Ox Delivery Rate 03/20 1411 98.4 74 20 156/50 96 03/20 0855 76 180/52 03/20 0855 76 180/52 03/20 0800 96 Room Air 03/20 0735 99.9 65 20 145/65 94 Room Air 03/20 0000 Room Air 03/19 2335 100.0 67 18 149/54 91 Room Air 03/19 2126 67 149/54 03/19 2030 92 Nasal 3.5L Cannula 03/19 1600 Nasal 3.5L Cannula Intake & Output 03/20 1600 03/20 0800 03/20 0000 Intake Total 240 480 Output Total 950 250 Balance -710 230 Intake, Oral 240 480 Output, Urine 950 250 Laboratory Tests 03/20/17 0625: Anion Gap 13, Estimated GFR 25 L, BUN/Creatinine Ratio 25.2 H, CBC w Diff NO MAN DIFF REQ, RBC 3.08 L, MCV 80.5, MCH 25.8 L, MCHC 32.0 L, RDW 19.9 H, MPV 7.9, Gran % 83.8 H, Lymphocytes % 7.8 L, Monocytes % 6.7, Eosinophils % 1.4, Basophils % 0.3, Absolute Granulocytes 6.8 H, Absolute Lymphocytes 0.6 L, Absolute Monocytes 0.5, Absolute Eosinophils 0.1, Absolute Basophils 0 Assessment/Plan Assessment: This is a is a 76-year-old gentleman who is a former smoker witha [id number] history and past medical history significant for CAD with multiple stent placement, COPD on 2 L home oxygen, atrial fibrillation on xaralto, ischemic cardiomyopathy with an EF of 35% status post AICD, significant pulmonary hypertension, diabetes, mitral regurgitation, presented with an acute onset of shortness of breath. MAXIMUM TEMPERATURE 100.8, heart rate 60, respiratory rate 18, blood pressure 105/51, saturating at 93 on room air. WBC 12, hemoglobin 11 and hematocrit 35, platelets 322 BUN 53 and creatinine 2.2 LFTs normal Troponin EKG - wnl cxr Right basilar airspace opacity is suspicious for pneumonia. Pneumonia. Symptoms of shortness of breath and chills with a low grade fever in the context of right basilar opacity on chest x-ray is suggestive of a respiratory infection pmeumonia. His history of COPD also predisposes him to risk of dyspneic episodes, however he does not endorse any symptoms during history taking such us increased cough and sputum production that suggest an exacerbation of COPD, his physical examination was also benign of any wheezing. * Ceftriaxone and azithromycin day 3. Will switch to Ceftin by mouth beginning tomorrow morning and discontinue azithromycin as a 3 day treatment is sufficient per pulmonology reccomendation. Chronic systolic heart failure Continue to hold off furosemide and restart on discharge cardiology recommendation. Patient respiratory status is stable right now and does not show any signs of acute pulmonary edema. Acute on chronic anemia Hemoglobin 8.8 and hematocrit 27.7. Hemoglobin in January 9.6..Guaiac negative so far. The normal ferritin and transferrin seen in the iron studies is suggestive of anemia of chronic disease. History of chronic diseases: CAD status post multiple stent placements-continue Lipitor, metoprolol Atrial fibrillation continue home medication of amiodarone, Cardizem and Xarelto Ischemic cardiomyopathy with ejection fraction 35% status post AICD Diabetes mellitus Accu-Cheks and insulin sliding scale Hypertension continue metoprolol 12.5 mg twice daily Hyperlipidemia continue Lipitor Gout-continue allopurinol 300 mg daily BPH continue tamsulosin DVT prophylaxis: Addressed by NOAC Diet: Carbohydrate 2 CODE STATUS: Full code Problem List: 1. Dyspnea Pain Ratin Pain Location: None Pain Goal: Remain pain free Pain Plan: Per pathway Tomorrow's Labs & Rationales: CBCs
[2017-03-20 07:35] VITALS: BP 145/65
[2017-03-20 08:13] LABS: ABSOLUTE BASOPHIL COUNT 0 /CUMM (0.0-0.2); ABSOLUTE EOSINOPHIL COUNT 0.1 /CUMM (0.0-0.7); ABSOLUTE GRANULOCYTE CT 6.8 /CUMM (1.4-6.5); ABSOLUTE LYMPH COUNT 0.6 /CUMM (1.2-3.4); ABSOLUTE MONOCYTE COUNT 0.5 /CUMM (0.10-0.60); BASOPHIL % 0.3 % (0.0-2.0); EOSINOPHIL % 1.4 % (0-5); GRANULOCYTE % 83.8 % (42.2-75.2); HEMATOCRIT 24.8 % (42-52); MEAN CORPUSCULAR HGB 25.8 PG (27.0-31.0); MEAN CORPUSCULAR VOLUME 80.5 FL (80.0-94.0); MEAN PLATELET VOLUME 7.9 FL (7.4-10.4); PLATELET COUNT 208 /CUMM (130-400); RBC DISTRIBUTION WIDTH 19.9 % (11.5-14.5); RED BLOOD CELL CT 3.08 /CUMM (4.70-6.10); WHITE BLOOD CELL COUNT 8.2 /CUMM (4.8-10.8)
--- NOTE | 2017-03-20 10:01 | PN- Att Addend ---
Attending Addendum Attending Brief Note Not feeling as well as yesterday, little wheezy and short of breath. Temperature max 100. No other major changes on physical. Appreciate cardiology's input and recommendations too. White count is 8200 and blood cultures are negative so far. Urine culture is negative urine is also negative for Legionella and mycoplasma. Will check a chest x-ray today. Continue observation and treatment. Intake & Output 03/20 1600 03/20 0400 03/19 1600 03/19 0400 03/18 1600 03/18 0400 Intake Total 597 152 1550 480 Output Total 946 016 0981 Balance -710 230 -140 480 Intake, IV 20 Intake, Oral 424 999 6814 480 Number 0 Bowel Movements Output, Urine 249 248 3742 Patient 184 lb Weight Weight Reported by Patient Measurement Method Current Medications Sig/Clare Start time Last Medication Dose Route Stop Time Status Admin Albuterol Sulfate 3 ML BID 03/18 2200 AC 03/19 INH 5 Albuterol Sulfate 3 ML Q6 PRN 03/18 1445 AC INH Amiodarone HCl 200 MG DAILY 03/18 1000 AC 03/20 PO 0855 Atorvastatin Calcium 40 MG 03/18 1700 AC 03/19 PO 1800 Azithromycin 250 MG DAILY 03/19 1000 AC 03/20 PO 0854 Ceftriaxone Sodium 1,000 MG DAILY 03/19 1000 AC 03/20 IV 0849 Diltiazem HCl 120 MG DAILY 03/18 1000 AC 03/20 PO 0855 Furosemide 40 MG 7:30 AM, & 4:30 PM 03/18 1630 DC 03/19 PO 1800 Insulin Aspart 0 TIDAC 03/18 1200 AC 03/19 SC 1816 Insulin Detemir 6 UNITS AT BEDTIME 03/18 2199 AC 03/19 SC 2125 Magnesium Oxide 400 MG DAILY 03/18 1000 AC 03/20 PO 0854 Metoprolol Succinate 12.5 MG BID 03/18 1000 AC 03/19 PO 2126 Potassium Chloride 20 MEQ DAILY 03/19 1000 AC 03/20 PO 0854 Rivaroxaban 15 MG 0 03/18 1700 AC 03/19 PO 1800 Tamsulosin HCl 0.4 MG DAILY 03/18 1000 AC 03/20 PO 0855 Laboratory Tests 03/20/17 0625: Anion Gap 13, Estimated GFR 25 L, BUN/Creatinine Ratio 25.2 H, CBC w Diff NO MAN DIFF REQ, RBC 3.08 L, MCV 80.5, MCH 25.8 L, MCHC 32.0 L, RDW 19.9 H, MPV 7.9, Gran % 83.8 H, Lymphocytes % 7.8 L, Monocytes % 6.7, Eosinophils % 1.4, Basophils % 0.3, Absolute Granulocytes 6.8 H, Absolute Lymphocytes 0.6 L, Absolute Monocytes 0.5, Absolute Eosinophils 0.1, Absolute Basophils 0 03/19/17 0715: Anion Gap 14, Estimated GFR 24 L, BUN/Creatinine Ratio 24.6, Iron 18 L, TIBC 314, Ferritin 51.6, Vitamin B12 637, Folate > 20.0 H, CBC w Diff NO MAN DIFF REQ, RBC 3.43 L, MCV 80.7, MCH 25.6 L, MCHC 31.8 L, RDW 20.7 H, MPV 8.0, Gran % 85.6 H, Lymphocytes % 7.9 L, Monocytes % 5.1, Eosinophils % 1.1, Basophils % 0.3, Absolute Granulocytes 9.9 H, Absolute Lymphocytes 0.9 L, Absolute Monocytes 0.6, Absolute Eosinophils 0.1, Absolute Basophils 0 03/18/17 0941: Troponin I 0.03 03/18/17 0351: Urinalysis MOD H, Urine Color STRAW, Urine Clarity CLEAR, Urine pH 7.0, Ur Specific Elbert 1.015, Urine Protein 100 H, Urine Ketones NEG, Urine Nitrite NEG, Urine Bilirubin NEG, Urine Urobilinogen 0.2, Ur Leukocyte Esterase NEG, Ur Microscopic SEDIMENT EXAMINED, Urine RBC 1-3, Urine WBC 1-3 H, Ur Epithelial Cells FEW, Urine Mucus MOD H, Urine Hemoglobin TRACE-INTACT H, Urine Glucose NEG 03/18/17 0240: Anion Gap 18 H, Estimated GFR 29 L, BUN/Creatinine Ratio 24.1, Glucose 123 H, Calcium 8.8, Phosphorus 5.1 H, Magnesium 2.2, Total Bilirubin 0.3, AST 41, ALT 25, Alkaline Phosphatase 80, Troponin I < 0.01, Oei-T-Kcpjhgitepf Pept 3850 H, Total Protein 7.1, Albumin 4.1, Globulin 3.0, Albumin/Globulin Ratio 1.4, PT 19.7 H, INR 1.89 H, APTT 43 H, D-Dimer High Sensitivty 202, CBC w Diff MAN DIFF ORDERED, RBC 4.39 L, MCV 81.6, MCH 25.2 L, MCHC 30.9 L, RDW 20.9 H, MPV 7.6, Gran % 87.3 H, Lymphocytes % 8.4 L, Monocytes % 3.7, Eosinophils % 0.5, Basophils % 0.1, Absolute Granulocytes 10.5 H, Segmented Neutrophils 83 H, Band Neutrophils 2, Absolute Lymphocytes 1.0 L, Lymphocytes 11 L, Monocytes 4, Absolute Monocytes 0.4, Absolute Eosinophils 0.1, Absolute Basophils 0, Platelet Estimate ADEQUATE, Polychromasia 1+, Poikilocytosis 2+, Ovalocytes 1+, Stomatocytes 1+, Fld Total RBCs Counted 100 Microbiology 03/18 350 URINE ROUT: Legionella Antigen - COMP 03/18 350 URINE ROUT: Streptococcus pneumoniae Antigen (M - COMP 03/18 035 URINE ROUT: Urine Culture - COMP 03/18 032 BLOOD: Blood Culture - RES 03/18 0259 BLOOD: Blood Culture - RES 03/18 024 NASOPHARYN: Influenza Virus A & B Rapid Smear - COMP Microbiology 03/18 350 URINE ROUT: Legionella Antigen - COMP 03/18 035 URINE ROUT: Streptococcus pneumoniae Antigen (M - COMP 03/18 035 URINE ROUT: Urine Culture - COMP 03/18 0320 BLOOD: Blood Culture - RES 03/18 025 BLOOD: Blood Culture - RES 03/18 0240 NASOPHARYN: Influenza Virus A & B Rapid Smear - COMP Vital Signs Date Time Temp Pulse Resp B/P B/P Pulse O2 O2 Flow FiO2 Mean Ox Delivery Rate 03/20 0855 76 180/52 03/20 0855 76 180/52 03/20 0735 99.9 65 20 145/65 94 Room Air 03/20 0000 Room Air 03/19 2335 100.0 67 18 149/54 91 Room Air 03/19 2126 67 149/54 03/19 2030 92 Nasal 3.5L Cannula 03/19 1600 Nasal 3.5L Cannula 03/19 1317 98.6 75 19 128/40 92 Nasal 3.0L Cannula 03/19 1204 80 122/78 03/19 1117 95 Nasal 3.5L Cannula
--- NOTE | 2017-03-20 12:14 | RADIOLOGY REPORT ---
EXAMINATION: XR PORTABLE CHEST CLINICAL INFORMATION: Dyspnea postop day 2. COMPARISON: Portable chest x-ray dated 03/18/2017. TECHNIQUE: Portable frontal view of the chest was obtained. FINDINGS: There is interval decrease in the density present in the right lung base on the prior study, small residual area of increased density remains present in the medial aspect of the right lung base probably in the right lower lobe since there is no silhouetting of the right cardiac border. Lungs are otherwise clear. No pleural effusion is noted. Cardiac silhouette is stable. Pacemaker is present in the right upper chest with 3 intact leads. IMPRESSION: Interval partial resolution of the density in the right lung base, small focal area of residual densities present in the medial aspect of the right lung base.
--- NOTE | 2017-03-20 14:09 | PN- Pulmonary ---
Subjective HPI/Critical Care Issues: Little better afebrile for more than 24 hrs Objective Current Medications: Current Medications Sig/Clare Start time Last Medication Dose Route Stop Time Status Admin Albuterol Sulfate 3 ML BID 03/18 2200 AC 03/20 INH 1030 Albuterol Sulfate 3 ML Q6 PRN 03/18 1445 AC INH Amiodarone HCl 200 MG DAILY 03/18 1000 AC 03/20 PO 0855 Atorvastatin Calcium 40 MG 1700 03/18 1700 AC 03/19 PO 1800 Azithromycin 250 MG DAILY 03/19 1000 AC 03/20 PO 0854 Ceftriaxone Sodium 1,000 MG DAILY 03/19 1000 AC 03/20 IV 0849 Diltiazem HCl 120 MG DAILY 03/18 1000 AC 03/20 PO 0855 Furosemide 40 MG 7:30 AM, & 4:30 PM 03/18 1630 DC 03/19 PO 1800 Insulin Aspart 0 TIDAC 03/18 1200 AC 03/19 SC 1816 Insulin Detemir 6 UNITS AT BEDTIME 03/18 2200 AC 03/19 SC 2125 Magnesium Oxide 400 MG DAILY 03/18 1000 AC 03/20 PO 0854 Metoprolol Succinate 12.5 MG BID 03/18 1000 AC 03/19 PO 2126 Potassium Chloride 20 MEQ DAILY 03/19 1000 AC 03/20 PO 0854 Rivaroxaban 15 MG 1700 03/18 1700 AC 03/19 PO 1800 Tamsulosin HCl 0.4 MG DAILY 03/18 1000 AC 03/20 PO 0855 Vital Signs & I&O Last 24 Hrs of Vitals and I&O: Vital Signs Date Time Temp Pulse Resp B/P B/P Pulse O2 O2 Flow FiO2 Mean Ox Delivery Rate 03/20 0855 76 180/52 03/20 0855 76 180/52 03/20 0800 96 Room Air 03/20 0735 99.9 65 20 145/65 94 Room Air 03/20 0000 Room Air 03/19 2335 100.0 67 18 149/54 91 Room Air 03/19 2126 67 149/54 03/19 2030 92 Nasal 3.5L Cannula 03/19 1600 Nasal 3.5L Cannula Intake & Output 03/20 1600 03/20 0800 03/20 0000 Intake Total 240 480 Output Total 950 250 Balance -710 230 Intake, Oral 240 480 Output, Urine 950 250 Laboratory Tests 03/20 03/19 0625 0715 Chemistry Sodium (137 - 145 mmol/L) 139 137 Potassium (3.5 - 5.1 mmol/L) 3.5 3.5 Chloride (98 - 107 mmol/L) 100 97 L Carbon Dioxide (22 - 30 mmol/L) 26 26 Anion Gap (5 - 16) 13 14 BUN (9 - 20 mg/dL) 63 H 64 H Creatinine (0.7 - 1.2 mg/dL) 2.5 H 2.6 H Estimated GFR (>60 ml/min) 25 L 24 L BUN/Creatinine Ratio (7 - 25 %) 25.2 H 24.6 Iron (49 - 181 ug/dL) 18 L TIBC (261 - 462 ug/dL) 314 Ferritin (17.9 - 464 ng/mL) 51.6 Vitamin B12 (239 - 931 pg/mL) 637 Folate (2.76 - 20.0 ng/mL) > 20.0 H Hematology CBC w Diff NO MAN DIFF REQ NO MAN DIFF REQ WBC (4.8 - 10.8 /CUMM) 8.2 11.5 H RBC (4.70 - 6.10 /CUMM) 3.08 L 3.43 L Hgb (14.0 - 18.0 G/DL) 7.9 L 8.8 L Hct (42 - 52 %) 24.8 L 27.7 L MCV (80.0 - 94.0 FL) 80.5 80.7 MCH (27.0 - 31.0 PG) 25.8 L 25.6 L MCHC (33.0 - 37.0 G/DL) 32.0 L 31.8 L RDW (11.5 - 14.5 %) 19.9 H 20.7 H Plt Count (130 - 400 /CUMM) 208 237 MPV (7.4 - 10.4 FL) 7.9 8.0 Gran % (42.2 - 75.2 %) 83.8 H 85.6 H Lymphocytes % (20.5 - 51.1 %) 7.8 L 7.9 L Monocytes % (1.7 - 9.3 %) 6.7 5.1 Eosinophils % (0 - 5 %) 1.4 1.1 Basophils % (0.0 - 2.0 %) 0.3 0.3 Absolute Granulocytes (1.4 - 6.5 /CUMM) 6.8 H 9.9 H Absolute Lymphocytes (1.2 - 3.4 /CUMM) 0.6 L 0.9 L Absolute Monocytes (0.10 - 0.60 /CUMM) 0.5 0.6 Absolute Eosinophils (0.0 - 0.7 /CUMM) 0.1 0.1 Absolute Basophils (0.0 - 0.2 /CUMM) 0 0 Microbiology Date/Time Procedure - Status Source Growth 03/18 350 Legionella Antigen - COMP URINE ROUT 03/18 035 Streptococcus pneumoniae Antigen (M - COMP URINE ROUT 03/18 0351 Urine Culture - COMP URINE ROUT 03/18 0320 Blood Culture - RES BLOOD 03/18 0259 Blood Culture - RES BLOOD 03/18 0240 Influenza Virus A & B Rapid Smear - COMP NASOPHARYN Rpt cxr IMPRESSION: Interval partial resolution of the density in the right lung base, small focal area of residual densities present in the medial aspect of the right lung base. Impression/Plan Impression/Plan Impression/Plan: General Appearance Alert, Oriented X3, Cooperative Skin No Significant Lesion Skin Temp/Moisture Exam: Warm/Dry Sepsis Skin Exam (color): Normal for Ethnicity HEENT Atraumatic, Mucous Membr. moist/pink Neck Supple, No JVD Lymphatic Cervical nl Cardiovascular Regular Rate, Normal S1, Normal S2 Lungs Clear to Auscultation Abdomen Soft, No Tenderness, No Hepatospenomegaly Neurological Normal Speech, Normal Tone, Sensation Intact, Cranial Nerves 3-12 NL Extremities No Edema, Normal Pulses, No Tenderness/Swelling CXR reviewed IMPRESSION: Right basilar airspace opacity is suspicious for pneumonia. IMPRESSION This is a gentleman with paroxysmal atrial fibrillation on xeralto, significant COPD, biventricular pacer for a previous wide-complex rhythm, previous coronary artery disease, significant pulmonary hypertension, mitral regurgitation, diabetes, previous gout and osteoarthritis, currently on 24-hour oxygen with 40- pack-year smoking history who has quit smoking few yrs ago now here * Resolved Fever and chills and cxr sugg of pna, and influenza is still a possibility but flu swab neg, Cxr sugg improvement * History of recurrent Pulm Edema Pafib now s/p failed electrical cardioversion, now on high dose amio 200, appears euvolumic * PT with severe copd with minimal wheezing * Chronic mild rt sided Effusion due to chf no evidence of empyema etc * Recent Cdiff colitis now status post antibiotic therapy no diarrhea * Previous bilateral epistaxis * Sig COPD with a right middle lobe bronchiectasis from his previous pneumonia with MRSA colonization. * Previous bronchiolitis with Previous small lung nodules * Chronic kidney disease with atrophic kidney. Now with ryan with prerenal azotemia * Hypertension, gout, previous high blood sugar, previous gout. * Mild aortic aneurysm * BPH on Flomax REC COnt abx, and change to po ceftin in am (azithro 3-5 days will suffice) If any fever start vanco as he has had vanco Hold steroids for now cont inhalers NEbs Hold lasix due to prerenal state, liberal po fluids Cont rate control meds
[2017-03-20 14:11] VITALS: BP 156/50
[2017-03-20 22:14] VITALS: BP 158/64
[2017-03-21 06:33] VITALS: BP 144/55
[2017-03-21 07:31] LABS: HEMATOCRIT 27.7 % (42-52)
--- NOTE | 2017-03-21 08:06 | PN- Housestaff ---
Subjective Follow-up For: Shortness of breath Subjective: Seen and examined at bedside. He is complaining of a facial rash which is pruritic and he believes could be possibly from an allergic reaction to medication. He denies any difficulties breathing, shortness of breath, nausea, vomiting, fever, chills, abdominal pain, chest pain, palpitation. Acute overnight event reported by nursing staff. Review of Systems Constitutional: Reports: see HPI. Objective Last 24 Hrs of Vital Signs/I&O Vital Signs Date Time Temp Pulse Resp B/P B/P Pulse O2 O2 Flow FiO2 Mean Ox Delivery Rate 03/21 1350 98.3 73 20 160/63 93 Room Air 03/21 0852 80 126/80 03/21 0808 93 Room Air 03/21 0750 94 Room Air 03/21 0633 97.9 64 20 144/55 94 Room Air 03/21 0000 Room Air 03/20 2214 97.9 69 18 158/64 95 Room Air 03/20 2133 69 158/64 03/20 1830 93 Room Air Intake & Output 03/21 1600 03/21 0800 03/21 0000 Intake Total 810 950 Output Total 650 750 400 Balance 160 -750 550 Intake, IV 10 Intake, Oral 800 950 Number 0 Bowel Movements Output, Urine 650 750 400 Physical Exam General Appearance: Alert, Oriented X3, Cooperative Other Physical Findings: HEENT Atraumatic, Mucous Membr. moist/pink Neck Supple, No JVD Lymphatic Cervical nl Cardiovascular Regular Rate, Normal S1, Normal S2 Lungs Clear to Auscultation Abdomen Soft, No Tenderness, No Hepatospenomegaly Neurological Normal Speech, Normal Tone, Sensation Intact, Cranial Nerves 3-12 NL Extremities No Edema, Normal Pulses, No Tenderness/Swelling Current Medications: Current Medications Sig/Clare Start time Last Medication Dose Route Stop Time Status Admin Acetaminophen 1,000 MG ONCE ONE 03/21 0415 DC 03/21 N/A 1 UNIT IV 03/21 0429 0423 Acetaminophen 1,000 MG ONCE ONE 03/21 0015 DC 03/21 N/A 1 UNIT IV 03/21 0029 0024 Albuterol Sulfate 3 ML BID 03/18 2199 AC 03/21 INH 0800 Albuterol Sulfate 3 ML Q6 PRN 03/18 1445 AC INH Allopurinol 300 MG 03/21 220 AC PO Allopurinol 300 MG DAILY 03/20 1853 DC 03/20 PO 2133 Amiodarone HCl 200 MG DAILY 03/18 1000 AC 03/21 PO 0852 Atorvastatin Calcium 40 MG 17003/18 1700 AC 03/20 PO 1629 Azithromycin 250 MG DAILY 03/19 1000 DC 03/20 PO 0854 Ceftriaxone Sodium 1,000 MG DAILY 03/19 1000 DC 03/20 IV 0849 Cefuroxime Sodium 250 MG DAILY 03/21 1000 AC 03/21 PO 0853 Diltiazem HCl 120 MG DAILY 03/18 1000 AC 03/21 PO 0853 Diphenhydramine HCl 25 MG ONCE ONE 03/21 0815 DC 03/21 PO 03/21 0816 0853 Insulin Aspart 0 TIDAC 03/18 1200 AC 03/20 SC 1720 Insulin Detemir 6 UNITS AT BEDTIME 03/18 2200 AC 03/20 SC 2133 Magnesium Oxide 400 MG DAILY 03/18 1000 AC 03/21 PO 0852 Metoprolol Succinate 12.5 MG BID 03/18 1000 AC 03/21 PO 0853 Potassium Chloride 20 MEQ DAILY 03/19 1000 AC 03/21 PO 0853 Rivaroxaban 15 MG 03/18 1700 AC 03/20 PO 1629 Tamsulosin HCl 0.4 MG DAILY 03/18 1000 AC 03/21 PO 0853 Last 24 Hrs of Lab/[place] Results Last 24 Hrs of Labs/Mics: Laboratory Tests 03/21/17 0618: Anion Gap 14, Estimated GFR 26 L, BUN/Creatinine Ratio 21.7, CBC w Diff NO MAN DIFF REQ, RBC 2.97 L, MCV 80.9, MCH 25.9 L, MCHC 32.0 L, RDW 20.4 H, MPV 8.1 , Gran % 75.7 H, Lymphocytes % 13.1 L, Monocytes % 8.4, Eosinophils % 2.1, Basophils % 0.7, Absolute Granulocytes 5.0, Absolute Lymphocytes 0.9 L, Absolute Monocytes 0.6, Absolute Eosinophils 0.1, Absolute Basophils 0 Assessment/Plan Assessment: This is a is a 76-year-old gentleman who is a former smoker witha [id number] history and past medical history significant for CAD with multiple stent placement, COPD on 2 L home oxygen, atrial fibrillation on xaralto, ischemic cardiomyopathy with an EF of 35% status post AICD, significant pulmonary hypertension, diabetes, mitral regurgitation, presented with an acute onset of shortness of breath. MAXIMUM TEMPERATURE 100.8, heart rate 60, respiratory rate 18, blood pressure 105/51, saturating at 93 on room air. WBC 12, hemoglobin 11 and hematocrit 35, platelets 322 BUN 53 and creatinine 2.2 LFTs normal Troponin EKG - wnl cxr Right basilar airspace opacity is suspicious for pneumonia. Assessment and plan Day 4 of hospitalization for treatment of community-acquired pneumonia. Currently stable with clinical improvement in respiratory status. He feels comfortable and is medically stable for discharge. Discharge with Ceftin prescription for an additional 3 days to complete a total of 7 day antibiotic treatment. Patient is to continue all his home medications including the furosemide which was withheld temporarily during hospital stay, this is based on cardiology recommendation. Problem List: 1. Pneumonia Pain Ratin Pain Location: legs Pain Goal: Remain pain free Pain Plan: per pathway Tomorrow's Labs & Rationales: none
[2017-03-21] MEDS ORDERED: CEFUROXIME250 M1 PO (08:34)
[2017-03-21 08:49] LABS: ABSOLUTE BASOPHIL COUNT 0 /CUMM (0.0-0.2); ABSOLUTE EOSINOPHIL COUNT 0.1 /CUMM (0.0-0.7); ABSOLUTE LYMPH COUNT 0.9 /CUMM (1.2-3.4); ABSOLUTE MONOCYTE COUNT 0.6 /CUMM (0.10-0.60); BASOPHIL % 0.7 % (0.0-2.0); EOSINOPHIL % 2.1 % (0-5); GRANULOCYTE % 75.7 % (42.2-75.2); MEAN CORPUSCULAR HGB 25.9 PG (27.0-31.0); MEAN CORPUSCULAR VOLUME 80.9 FL (80.0-94.0); MEAN PLATELET VOLUME 8.1 FL (7.4-10.4); PLATELET COUNT 212 /CUMM (130-400); RBC DISTRIBUTION WIDTH 20.4 % (11.5-14.5); RED BLOOD CELL CT 2.97 /CUMM (4.70-6.10); WHITE BLOOD CELL COUNT 6.6 /CUMM (4.8-10.8)
--- NOTE | 2017-03-21 10:26 | PN- Cardiology ---
Subjective Subjective: The patient feels better today. His breathing is improved. He has no chest pain or palpitations. His chest x-ray yesterday showed some improvement. Objective Vital Signs and I&Os Vital Signs Date Time Temp Pulse Resp B/P B/P Pulse O2 O2 Flow FiO2 Mean Ox Delivery Rate 03/21 0852 80 126/80 03/21 0808 93 Room Air 03/21 0750 94 Room Air 03/21 0633 97.9 64 20 144/55 94 Room Air 03/21 0000 Room Air 03/20 2214 97.9 69 18 158/64 95 Room Air 03/20 2133 69 158/64 03/20 1830 93 Room Air 03/20 1600 Room Air 03/20 1435 65 150/50 03/20 1411 98.4 74 20 156/50 96 03/20 1031 92 Room Air Room Air Intake & Output 03/21 1600 03/21 0800 03/21 0000 03/20 1600 03/20 0800 03/20 0000 Intake Total 950 700 240 480 Output Total 750 400 300 950 250 Balance -750 550 400 -710 230 Intake, IV 50 Intake, Oral 950 650 240 480 Output, Urine 750 400 300 950 250 Physical Exam: He is in no distress HEENT exam is normal Chest reveals decreased breath sounds and minimal wheezing Heart soft heart sounds, regular rhythm, no murmurs No peripheral edema Current Medications: Current Medications Sig/Clare Start time Last Medication Dose Route Stop Time Status Admin Acetaminophen 1,000 MG ONCE ONE 03/21 0415 DC 03/21 N/A 1 UNIT IV 03/21 0429 0423 Acetaminophen 1,000 MG ONCE ONE 03/21 0015 DC 03/21 N/A 1 UNIT IV 03/21 0029 0024 Albuterol Sulfate 3 ML BID 03/18 2200 AC 03/21 INH 0800 Albuterol Sulfate 3 ML Q6 PRN 03/18 1445 AC INH Allopurinol 300 MG 03/21 2200 AC PO Allopurinol 300 MG DAILY 03/20 1853 DC 03/20 PO 2133 Amiodarone HCl 200 MG DAILY 03/18 1000 AC 03/21 PO 0852 Atorvastatin Calcium 40 MG 1700 03/18 1700 AC 03/20 PO 1629 Azithromycin 250 MG DAILY 03/19 1000 DC 03/20 PO 0854 Ceftriaxone Sodium 1,000 MG DAILY 03/19 1000 DC 01/31 IV 0849 Cefuroxime Sodium 250 MG DAILY 03/21 1000 AC 03/21 PO 0853 Diltiazem HCl 120 MG DAILY 03/18 1000 AC 03/21 PO 0853 Diphenhydramine HCl 25 MG ONCE ONE 03/21 0815 DC 03/21 PO 03/21 0816 0853 Insulin Aspart 0 TIDAC 03/18 1200 AC 03/20 SC 1720 Insulin Detemir 6 UNITS AT BEDTIME 03/18 2200 AC 03/20 SC 2133 Magnesium Oxide 400 MG DAILY 03/18 1000 AC 03/21 PO 0852 Metoprolol Succinate 12.5 MG BID 03/18 1000 AC 03/21 PO 0853 Potassium Chloride 20 MEQ DAILY 03/19 1000 AC 03/21 PO 0853 Rivaroxaban 15 MG 1700 03/18 1700 AC 03/20 PO 1629 Tamsulosin HCl 0.4 MG DAILY 03/18 1000 AC 03/21 PO 0853 Results Last 48 Hrs of Labs/Mics: Laboratory Tests 03/21/17 0618: Anion Gap 14, Estimated GFR 26 L, BUN/Creatinine Ratio 21.7, CBC w Diff NO MAN DIFF REQ, RBC 2.97 L, MCV 80.9, MCH 25.9 L, MCHC 32.0 L, RDW 20.4 H, MPV 8.1 , Gran % 75.7 H, Lymphocytes % 13.1 L, Monocytes % 8.4, Eosinophils % 2.1, Basophils % 0.7, Absolute Granulocytes 5.0, Absolute Lymphocytes 0.9 L, Absolute Monocytes 0.6, Absolute Eosinophils 0.1, Absolute Basophils 0 03/20/17 0625: Anion Gap 13, Estimated GFR 25 L, BUN/Creatinine Ratio 25.2 H, CBC w Diff NO MAN DIFF REQ, RBC 3.08 L, MCV 80.5, MCH 25.8 L, MCHC 32.0 L, RDW 19.9 H, MPV 7.9, Gran % 83.8 H, Lymphocytes % 7.8 L, Monocytes % 6.7, Eosinophils % 1.4, Basophils % 0.3, Absolute Granulocytes 6.8 H, Absolute Lymphocytes 0.6 L, Absolute Monocytes 0.5, Absolute Eosinophils 0.1, Absolute Basophils 0 Recent Imaging Studies: PATIENT: SONDRA CANO PRESENT AGE: 76 PATIENT ACCOUNT NO: [id number] : 39 LOCATION: [facility] ORDERING PHYSICIAN: Romero Ryan MD SERVICE DATE: 03/20/17 EXAM TYPE: RAD - XRY-PORTABLE CHEST XRAY EXAMINATION: XR PORTABLE CHEST CLINICAL INFORMATION: Dyspnea postop day 2. COMPARISON: Portable chest x-ray dated 03/18/2017. TECHNIQUE: Portable frontal view of the chest was obtained. FINDINGS: There is interval decrease in the density present in the right lung base on the prior study, small residual area of increased density remains present in the medial aspect of the right lung base probably in the right lower lobe since there is no silhouetting of the right cardiac border. Lungs are otherwise clear. No pleural effusion is noted. Cardiac silhouette is stable. Pacemaker is present in the right upper chest with 3 intact leads. IMPRESSION: Interval partial resolution of the density in the right lung base, small focal area of residual densities present in the medial aspect of the right lung base. DICTATED BY: Supriya Jaimes MD DATE/TIME DICTATED:03/20/171208 DAIRY HUSBANDMAN:SANTANA DATE/TIME TRANSCRIBED:03/20/171208 CONFIDENTIAL, DO NOT COPY WITHOUT APPROPRIATE AUTHORIZATION. <Electronically signed in Other Vendor System> SIGNED BY: Supriya Jaimes MD [id number] Assessment/Plan Assessment/Plan The patient is improved. It appears as if his condition was strictly pulmonary with right lower lobe pneumonia and no cardiac involvement at this time. His BUN and creatinine are improving. I recommend that he go back on his usual Lasix dose on discharge. I will follow him up in the office routinely. Continue telemetry? Not applicable
[2017-03-21] MEDS ORDERED: MEDROL4 M2 PO (11:00)
--- NOTE | 2017-03-21 11:16 | PN- Att Addend ---
Attending Addendum Attending Brief Note His breathing is better, but bothered by foot pain which usually is the gout, prednisone was ordered start in the hospital and continue at home. His vital signs are stable but no fever and no other major changes on physical his white count was 6600 today and will discharge later on today I'll up as an outpatient and follow-up chest x-ray for complete clearing Intake & Output 03/21 1600 03/21 0400 03/20 1600 03/20 0400 03/19 1600 03/19 0400 Intake Total 950 831 439 3175 480 Output Total 653 387 9266 250 1200 Balance -750 550 -310 230 -140 480 Intake, IV 50 20 Intake, Oral 950 511 295 8948 480 Number 0 Bowel Movements Output, Urine 953 287 7701 250 1200 Current Medications Sig/Clare Start time Last Medication Dose Route Stop Time Status Admin Acetaminophen 1,000 MG ONCE ONE 03/21 0415 DC 03/21 N/A 1 UNIT IV 03/21 0429 0423 Acetaminophen 1,000 MG ONCE ONE 03/21 0015 DC 03/21 N/A 1 UNIT IV 03/21 0029 0024 Albuterol Sulfate 3 ML BID 03/18 2200 AC 03/21 INH 0800 Albuterol Sulfate 3 ML Q6 PRN 03/18 1445 AC INH Allopurinol 300 MG 22003/21 2200 AC PO Allopurinol 300 MG DAILY 03/20 1853 DC 03/20 PO 2133 Amiodarone HCl 200 MG DAILY 03/18 1000 AC 03/21 PO 0852 Atorvastatin Calcium 40 MG 1700 03/18 1700 AC 03/20 PO 1629 Azithromycin 250 MG DAILY 03/19 1000 DC 03/20 PO 0854 Ceftriaxone Sodium 1,000 MG DAILY 03/19 1000 DC 03/20 IV 0849 Cefuroxime Sodium 250 MG DAILY 03/21 1000 AC 03/21 PO 0853 Diltiazem HCl 120 MG DAILY 03/18 1000 AC 03/21 PO 0853 Diphenhydramine HCl 25 MG ONCE ONE 03/21 0815 DC 03/21 PO 03/21 0816 0853 Insulin Aspart 0 TIDAC 03/18 1200 AC 03/20 SC 1720 Insulin Detemir 6 UNITS AT BEDTIME 03/18 2200 AC 03/20 SC 2133 Magnesium Oxide 400 MG DAILY 03/18 1000 AC 03/21 PO 0852 Metoprolol Succinate 12.5 MG BID 03/18 1000 AC 03/21 PO 0853 Potassium Chloride 20 MEQ DAILY 03/19 1000 AC 03/21 PO 0853 Prednisone 40 MG ONCE ONE 03/21 1100 DC PO 03/21 1101 Rivaroxaban 15 MG 1700 03/18 1700 AC 03/20 PO 1629 Tamsulosin HCl 0.4 MG DAILY 03/18 1000 AC 03/21 PO 0853 Laboratory Tests 03/21/17 0618: Anion Gap 14, Estimated GFR 26 L, BUN/Creatinine Ratio 21.7, CBC w Diff NO MAN DIFF REQ, RBC 2.97 L, MCV 80.9, MCH 25.9 L, MCHC 32.0 L, RDW 20.4 H, MPV 8.1 , Gran % 75.7 H, Lymphocytes % 13.1 L, Monocytes % 8.4, Eosinophils % 2.1, Basophils % 0.7, Absolute Granulocytes 5.0, Absolute Lymphocytes 0.9 L, Absolute Monocytes 0.6, Absolute Eosinophils 0.1, Absolute Basophils 0 03/20/17 0625: Anion Gap 13, Estimated GFR 25 L, BUN/Creatinine Ratio 25.2 H, CBC w Diff NO MAN DIFF REQ, RBC 3.08 L, MCV 80.5, MCH 25.8 L, MCHC 32.0 L, RDW 19.9 H, MPV 7.9, Gran % 83.8 H, Lymphocytes % 7.8 L, Monocytes % 6.7, Eosinophils % 1.4, Basophils % 0.3, Absolute Granulocytes 6.8 H, Absolute Lymphocytes 0.6 L, Absolute Monocytes 0.5, Absolute Eosinophils 0.1, Absolute Basophils 0 03/19/17 0715: Anion Gap 14, Estimated GFR 24 L, BUN/Creatinine Ratio 24.6, Iron 18 L, TIBC 314, Ferritin 51.6, Vitamin B12 637, Folate > 20.0 H, CBC w Diff NO MAN DIFF REQ, RBC 3.43 L, MCV 80.7, MCH 25.6 L, MCHC 31.8 L, RDW 20.7 H, MPV 8.0, Gran % 85.6 H, Lymphocytes % 7.9 L, Monocytes % 5.1, Eosinophils % 1.1, Basophils % 0.3, Absolute Granulocytes 9.9 H, Absolute Lymphocytes 0.9 L, Absolute Monocytes 0.6, Absolute Eosinophils 0.1, Absolute Basophils 0 Vital Signs Date Time Temp Pulse Resp B/P B/P Pulse O2 O2 Flow FiO2 Mean Ox Delivery Rate 03/21 0852 80 126/80 03/21 0808 93 Room Air 03/21 0750 94 Room Air 03/21 0633 97.9 64 20 144/55 94 Room Air 03/21 0000 Room Air 03/20 2214 97.9 69 18 158/64 95 Room Air 03/20 2133 69 158/64 03/20 1830 93 Room Air 03/20 1600 Room Air 03/20 1435 65 150/50 03/20 1411 98.4 74 20 156/50 96
[2017-03-21 13:50] VITALS: BP 160/63
--- NOTE | 2017-03-21 13:51 | PN- Pulmonary ---
Subjective HPI/Critical Care Issues: Much improved stable has gout Objective Current Medications: Current Medications Sig/Clare Start time Last Medication Dose Route Stop Time Status Admin Acetaminophen 1,000 MG ONCE ONE 03/21 0415 DC 03/21 N/A 1 UNIT IV 03/21 0429 0423 Acetaminophen 1,000 MG ONCE ONE 03/21 0015 DC 03/21 N/A 1 UNIT IV 03/21 0029 0024 Albuterol Sulfate 3 ML BID 03/18 2200 AC 03/21 INH 0800 Albuterol Sulfate 3 ML Q6 PRN 03/18 1445 AC INH Allopurinol 300 MG 03/21 220 AC PO Allopurinol 300 MG DAILY 03/20 1853 DC 03/20 PO 2133 Amiodarone HCl 200 MG DAILY 03/18 1000 AC 03/21 PO 0852 Atorvastatin Calcium 40 [place] 17003/18 1700 AC 03/20 PO 1629 Azithromycin 250 MG DAILY 03/19 1000 DC 03/20 PO 0854 Ceftriaxone Sodium 1,000 MG DAILY 03/19 1000 DC 03/20 IV 0849 Cefuroxime Sodium 250 MG DAILY 03/21 1000 AC 03/21 PO 0853 Diltiazem HCl 120 MG DAILY 03/18 1000 AC 03/21 PO 0853 Diphenhydramine HCl 25 MG ONCE ONE 03/21 0815 DC 03/21 PO 03/21 0816 0853 Insulin Aspart 0 TIDAC 03/18 1200 AC 03/20 SC 1720 Insulin Detemir 6 UNITS AT BEDTIME 03/18 2200 AC 03/20 SC 2133 Magnesium Oxide 400 MG DAILY 03/18 1000 AC 03/21 PO 0852 Metoprolol Succinate 12.5 MG BID 03/18 1000 AC 03/21 PO 0853 Potassium Chloride 20 MEQ DAILY 03/19 1000 AC 03/21 PO 0853 Prednisone 40 MG ONCE ONE 03/21 1100 DC 03/21 PO 03/21 1101 1218 Rivaroxaban 15 MG 1700 03/18 1700 AC 03/20 PO 1629 Tamsulosin HCl 0.4 MG DAILY 03/18 1000 AC 03/21 PO 0853 Laboratory Tests 03/21 03/20 0618 0625 Chemistry Sodium (137 - 145 mmol/L) 139 139 Potassium (3.5 - 5.1 mmol/L) 3.9 3.5 Chloride (98 - 107 mmol/L) 99 100 Carbon Dioxide (22 - 30 mmol/L) 26 26 Anion Gap (5 - 16) 14 13 BUN (9 - 20 mg/dL) 52 H 63 H Creatinine (0.7 - 1.2 mg/dL) 2.4 H 2.5 H Estimated GFR (>60 ml/min) 26 L 25 L BUN/Creatinine Ratio (7 - 25 %) 21.7 25.2 H Hematology CBC w Diff NO MAN DIFF REQ NO MAN DIFF REQ WBC (4.8 - 10.8 /CUMM) 6.6 8.2 RBC (4.70 - 6.10 /CUMM) 2.97 L 3.08 L Hgb (14.0 - 18.0 G/DL) 7.7 L 7.9 L Hct (42 - 52 %) 24.0 L 24.8 L MCV (80.0 - 94.0 FL) 80.9 80.5 MCH (27.0 - 31.0 PG) 25.9 L 25.8 L MCHC (33.0 - 37.0 G/DL) 32.0 L 32.0 L RDW (11.5 - 14.5 %) 20.4 H 19.9 H Plt Count (130 - 400 /CUMM) 212 208 MPV (7.4 - 10.4 FL) 8.1 7.9 Gran % (42.2 - 75.2 %) 75.7 H 83.8 H Lymphocytes % (20.5 - 51.1 %) 13.1 L 7.8 L Monocytes % (1.7 - 9.3 %) 8.4 6.7 Eosinophils % (0 - 5 %) 2.1 1.4 Basophils % (0.0 - 2.0 %) 0.7 0.3 Absolute Granulocytes (1.4 - 6.5 /CUMM) 5.0 6.8 H Absolute Lymphocytes (1.2 - 3.4 /CUMM) 0.9 L 0.6 L Absolute Monocytes (0.10 - 0.60 /CUMM) 0.6 0.5 Absolute Eosinophils (0.0 - 0.7 /CUMM) 0.1 0.1 Absolute Basophils (0.0 - 0.2 /CUMM) 0 0 Vital Signs & I&O Last 24 Hrs of Vitals and I&O: Vital Signs Date Time Temp Pulse Resp B/P B/P Pulse O2 O2 Flow FiO2 Mean Ox Delivery Rate 02/01 0852 80 126/80 03/21 0808 93 Room Air 03/21 0750 94 Room Air 03/21 0633 97.9 64 20 144/55 94 Room Air 03/21 0000 Room Air 03/20 2214 97.9 69 18 158/64 95 Room Air 03/20 2133 69 158/64 03/20 1830 93 Room Air 03/20 1600 Room Air 03/20 1435 65 150/50 03/20 1411 98.4 74 20 156/50 96 Intake & Output 03/21 1600 03/21 0800 03/21 0000 Intake Total 950 Output Total 750 400 Balance -750 550 Intake, Oral 950 Output, Urine 750 400 Impression/Plan Impression/Plan Impression/Plan: General Appearance Alert, Oriented X3, Cooperative Skin No Significant Lesion Skin Temp/Moisture Exam: Warm/Dry Sepsis Skin Exam (color): Normal for Ethnicity HEENT Atraumatic, Mucous Membr. moist/pink Neck Supple, No JVD Lymphatic Cervical nl Cardiovascular Regular Rate, Normal S1, Normal S2 Lungs Clear to Auscultation Abdomen Soft, No Tenderness, No Hepatospenomegaly Neurological Normal Speech, Normal Tone, Sensation Intact, Cranial Nerves 3-12 NL Extremities No Edema, Normal Pulses, No Tenderness/Swelling CXR reviewed IMPRESSION: Right basilar airspace opacity is suspicious for pneumonia. IMPRESSION This is a gentleman with paroxysmal atrial fibrillation on xeralto, significant COPD, biventricular pacer for a previous wide-complex rhythm, previous coronary artery disease, significant pulmonary hypertension, mitral regurgitation, diabetes, previous gout and osteoarthritis, currently on 24-hour oxygen with 40- pack-year smoking history who has quit smoking few yrs ago now here * Resolved Fever and chills and cxr sugg of pna, and influenza is still a possibility but flu swab neg, Cxr sugg improvement * History of recurrent Pulm Edema Pafib now s/p failed electrical cardioversion, now on high dose amio 200, appears euvolumic * PT with severe copd with minimal wheezing * Chronic mild rt sided Effusion due to chf no evidence of empyema etc * Recent Cdiff colitis now status post antibiotic therapy no diarrhea * Previous bilateral epistaxis * Sig COPD with a right middle lobe bronchiectasis from his previous pneumonia with MRSA colonization. * Previous bronchiolitis with Previous small lung nodules * Chronic kidney disease with atrophic kidney. Now with ryan with prerenal azotemia * Hypertension, gout, previous high blood sugar, previous gout. * Mild aortic aneurysm * BPH on Flomax REC Po ceftin in am (azithro 3-5 days will suffice) If any fever start vanco as he has had vanco Ok with steroids for gout cont inhalers NEbs Hold lasix due to prerenal state, liberal po fluids Cont rate control meds
== END 2017-03-21 14:38 | disposition home health service (06) | DRG 190 ==
LOC: ERH 02:23 → 2NB 06:41 → ERHI 06:41 → ENRESERV 17:14 → ENTRNSPT 17:36 → 2NB 17:51 → CMPTRNSPT 17:57 → DELTRNSPT 18:43 → ENPENDDIS 03-21 11:00 → ENTRNSPT 03-21 14:10 → EDTRNSPTSTS 03-21 14:32 → EDTRNSPT 03-21 14:32 → 2NB 03-21 14:38 → CMPTRNSPT 03-21 14:42
PROVIDERS: Hospitalist; Pediatrics; Student in an Organized Health Care Education/Training Program
DX: J44.0 Chronic obstructive pulmonary disease with (acute) lower respiratory infection (principal); J18.9 Pneumonia, unspecified organism; I13.0 Hypertensive heart and chronic kidney disease with heart failure and stage 1 through stage 4 chronic kidney disease, or unspecified chronic kidney disease; E11.22 Type 2 diabetes mellitus with diabetic chronic kidney disease; I50.22 Chronic systolic (congestive) heart failure; I48.0 Paroxysmal atrial fibrillation; Z99.81 Dependence on supplemental oxygen; D64.9 Anemia, unspecified; I25.5 Ischemic cardiomyopathy; I34.0 Nonrheumatic mitral (valve) insufficiency; N26.1 Atrophy of kidney (terminal); N18.9 Chronic kidney disease, unspecified; I25.10 Atherosclerotic heart disease of native coronary artery without angina pectoris; B18.2 Chronic viral hepatitis C; Z79.01 Long term (current) use of anticoagulants; Z95.0 Presence of cardiac pacemaker; Z79.4 Long term (current) use of insulin; M10.9 Gout, unspecified; N40.0 Benign prostatic hyperplasia without lower urinary tract symptoms; Z87.891 Personal history of nicotine dependence
CPT/HCPCS: 36415; 71045; 81001; 82436; 87040; 87086; 87449; 87450; 87804; 87804-59; 93005; 93010; 96374; 96375; 99291; J0456; J0696; J7060